=== PATIENT | male | born 1950 | race Caucasian/White ===

== ENCOUNTER → 2019-06-03 13:48 | Outpatient (CLI) | payer MEDICARE, OTHER, SELFPAY ==
[2014-06-27 05:48] VITALS: BMI 21.4
--- NOTE | 2019-06-03 13:54 | ART_ITS ---
Reason For Study: PAD, claudication Procedure A bilateral lower extremity continuous wave Doppler with analog waveform analysis,segmental pressures,and ankle brachial indexes without exercise. Did not exercise pt due to severity of disease. Pt is also using a cane and states he has been falling. Prelim called to Kathleen at Dr. Matute's office. Pt released. Left Segmental Pressures Left brachial= 98mmHg. Left thigh = 62mmHg. Left calf = 46mmHg. Left posterior tibial artery = 32mmHg. Left dorsalis pedis artery = 36mmHg. Left digit = 0 mmHg. Right Segmental Pressures Right brachial= 86mmHg. Right thigh = 77mmHg. Right calf = 78mmHg. Right posterior tibial artery = 71mmHg. Right dorsalis pedis artery = 70mmHg. Right digit = 23 mmHg. The right dorsalis pedis waveforms are biphasic. The right posterior tibial artery waveforms are biphasic. Indices The right ankle brachial index by the dorsalis pedis is .71. The right ankle brachial index by the posterior tibial artery is .72. The right digital-brachial index is .23. The left ankle brachial index by the dorsalis pedis is .36. The left ankle brachial index by the posterior tibial artery is .33. The left digital-brachial index is 0. Interpretation Summary Moderately severe right lower extremity arterial occlusive disease Abnormal right digital brachial indices consistent with severe/small vessel disease Severe left lower extremity arterial occlusive disease. Left digital brachial indices not obtainable secondary to flattened waveforms consistent with severe/multisegmental disease/small vessel disease Ordering Physician: Goldy Matute Performed By: ROSELINE LOONEY Hina
== END ==
PROVIDERS: Family Provider Family Medicine; PCP Student in an Organized Health Care Education/Training Program; Referring Provider Surgery; Visit Provider Surgery
DX: I73.9 Peripheral vascular disease, unspecified (principal)
CPT/HCPCS: 93924

== ENCOUNTER 2019-07-14 08:53 | Day surgery (SDC) | payer MEDICARE, OTHER, SELFPAY ==
[2019-06-09 13:16] VITALS: BMI 18.8
--- NOTE | 2019-07-12 03:20 | HP_ITS ---
Intake Vital Signs 07/12/19 Height 5 ft 3 in 07/12/19 Weight: 106 lb 07/12/19 BMI 18.8 07/12/19 BP 129/73 H 07/12/19 Blood Pressure Location Rt brachial 07/12/19 Position Sitting 07/12/19 Respiration 16 07/12/19 Pulse 68 07/12/19 Pulse Source Monitor 07/12/19 Temp 98.6 F 07/12/19 Temp Source Oral 07/12/19 Pulse Oximetry (%) 93 07/12/19 Oxygen Delivery Method room air Intake Visit Reasons: TO UPDATE H&P- L APLL RC Chief Complaint: PAD Belting Inspector Required: No Is patient in pain?: Yes (Left leg) Pain scale (1-10): 5 Allergies ciprofloxacin HCl [From Cipro] Allergy (Verified 06/27/14 05:47) Unknown Medications Aspirin E.C. [Ecotrin] 81 mg PO DAILY@0800 06/20/14 [History Confirmed 07/12/19] Diltiazem CD [Cardizem CD] 180 mg PO DAILY 06/20/14 [History Confirmed 07/12/19] Valsartan/Hydrochlorothiazide [Diovan Hct 320-12.5 MG Tab] 320 mg PO DAILY 06/20/14 [History Confirmed 07/12/19] cilostazol 50 mg tablet mg PO 06/09/19 [History Confirmed 07/12/19] PFSH Medical History Peripheral arterial occlusive disease (Acute) Back pain (Acute) PAOD (peripheral arterial occlusive disease) (Acute) HTN (hypertension) (Chronic) Surgical History Status post peripheral artery angioplasty (Acute) Family History Father Hypertension Cancer lung Social History (Updated 07/12/19 @ 15:20 by Jamila Hopkins PA-C) Smoking Status: Heavy Smoker (>10/day) HPI HPI HPI: RYAN ESCOBAR, is a 68 M who presents to the office today for HPI HPI Surgical H&P: Yes HPI: RYAN ESCOBAR, is a 68 M who presents to the office today for an update history and physical for an upcoming procedure. Patient denies recent hospitalizations or illnesses since his last office visit. He denies any changes in his medications. Patient has had multiple APLL procedures without any complications or side effects. Patient' previous history per Dr. Matute: RYAN ESCOBAR, is a 68 M who presents to the office today for surgical consultation regarding a progressive at least 2-month history of left calf and foot pain with attempts to walk. His past history is complicated 2013 he had a right external iliac stent placed. 2014 he had 7 x 4 conquest angioplasty of in-stent stenosis of the right external iliac. He had placement of a right common iliac 8 x 39 mm Deepa stent. A left common iliac/external iliac placement of a 9 x 29 mm Deepa stent. A left external iliac 8 x 60 mm protege stent. Subsequently June 27, 2014 had bilateral external iliac/common femoral/superficial femoral endarterectomies with a small saphenous vein patch on the right and a direct repair on the left. He presents now with significant complaints regarding his left leg. No particular complaints regarding the right. This patient among other medications was supposed to be on aspirin 81 mg daily. At some point in the past he ceased taking that. He made comment that he was having trouble with nosebleeds. Recently he was placed on cilostazol by his primary care physician. His body weight is 106 pounds with a BMI of 18.8. He looks far older than stated age. He continues to smoke cigarettes at the rate of a pack per day and has done so for greater than 50 years. [facility] [address] [place] [id number] Lower Ext Art Exam w/ Exercise 06/03/19 1357 MR#: [id number] Name:RYAN ESCOBARRep #:[id number] : 1950 68From:Goldy Matute MD Attending Dr: ISSA Suntatus: REG CLI Ordering Dr: Goldy Matute MDDate: 06/03/19 [facility]: Reason For Study: PAD, claudication Procedure A bilateral lower extremity continuous wave Doppler with analog waveform analysis,segmental pressures,and ankle brachial indexes without exercise. Did not exercise pt due to severity of disease. Pt is also using a cane and states he has been falling. Prelim called to Kathleen at Dr. Matute's office. Pt released. Left Segmental Pressures Left brachial= 98mmHg. Left thigh = 62mmHg. Left calf = 46mmHg. Left posterior tibial artery = 32mmHg. Left dorsalis pedis artery = 36mmHg. Left digit = 0 mmHg. Right Segmental Pressures Right brachial= 86mmHg. Right thigh = 77mmHg. Right calf = 78mmHg. Right posterior tibial artery = 71mmHg. Right dorsalis pedis artery = 70mmHg. Right digit = 23 mmHg. The right dorsalis pedis waveforms are biphasic. The right posterior tibial artery waveforms are biphasic. Indices The right ankle brachial index by the dorsalis pedis is .71. The right ankle brachial index by the posterior tibial artery is .72. The right digital-brachial index is .23. The left ankle brachial index by the dorsalis pedis is .36. The left ankle brachial index by the posterior tibial artery is .33. The left digital-brachial index is 0. Interpretation Summary Moderately severe right lower extremity arterial occlusive disease Abnormal right digital brachial indices consistent with severe/small vessel disease Severe left lower extremity arterial occlusive disease. Left digital brachial indices not obtainable secondary to flattened waveforms consistent with severe/multisegmental disease/small vessel disease Ordering Physician: Goldy Matute Performed By: ROSELINE LOONEY RVT 06/03/19 1651 Date Goldy Matute MD CC: Salvador Foy DO; Henrik Reddy DO; Goldy Matute MD ~ Date Dictated:06/03/19 1357 Date Transcribed: 06/03/19 1651 ROS General General: No weight change, appetite, fatigue, colon cancer, breast cancer or weakness HEENT HEENT: No difficulty swallowing, eye injury, eye surgery, swollen glands or hoarseness Endo Endocrine: No thyroid disease, diabetes mellitus, thyroid cancer, Hair loss, heat intolerance or cold intolerance Musc Musculoskeletal: Yes back problems; no arthritis, rheumatoid arthritis, gout or joint pain Cardio Cardiovascular: Yes high blood pressure; no murmur, pacemaker, heart disease, atrial fibrillation, heart attack, heart stent, palpitations, shortness of breat with exertion or chest pain Psych Psychiatric: No depression, anxiety or hearing voices Resp Respiratory: No shortness of breath, No sleep apnea, No cough, No COPD, No asthma, No emphysema, No wheezing Gastro Gastrointestinal: No abdominal pain, No nausea or vomiting, No diarrhea, No constipation, No blood in stool, No acid reflux, No hemorrhoids, No ulcers, No gallbladder problem, No black,tarry stools Saroj Hematologic: Yes blood thinners, No blood disorders, No bleeding, No anemia, No blood clots Neuro Neurologic: No weakness Exam Const General: cooperative, healthy appearing, comfortable, no acute distress Other: Heavy tobacco odor HENMT Head: normal to inspection Eyes General: appearance normal, both eyes and all related structures Neck Neck: normal visual inspection Neck mass: No Resp Effort & Inspection: normal respiratory effort Auscultation: clear to auscultation bilaterally Cardio Rate: regular rate Rhythm: regular rhythm Heart Sounds: no murmurs GI Inspection: normal to inspection Palpation: soft Auscultation: normal bowel sounds Skin General: no rashes or lesions noted Neuro General: no focal motor deficits, CN's II-XI intact bilaterally Extrem Other: Pulses: Bilateral brachial 1+, Bilateral carotid, right femoral 2+, left femoral 0 but left external iliac 2+, right popliteal 1+, left popliteal 0, Bilateral DP and PT 0. Psych Appearance: grossly normal Affect: normal affect Assessment & Plan Problems 1. Peripheral arterial occlusive disease I77.[address] Matute will plan to perform an abdominal pelvic left lower extremity arteriogram with access through the right femoral region. Procedure details, risks and benefits have been explained. Patient and his have had the opportunity to ask and have questions answered. Patient verbally understands and agrees with the plan. Coding Level of Care Code No Charge Diagnoses Peripheral arterial occlusive disease I77.9 Comment Update H&P 07/12/19 1520 <Electronically signed by Jamila levy PA-C> Date _ Jamila Hopkins PA-C
[2019-07-12 13:09] VITALS: BMI 18.8
[2019-07-12 15:07] LABS: Hematocrit 36.9 % (40-54); Hemoglobin 12.5 g/dL (13.0-16.5); Mean Corp Hgb Conc 33.9 g/dL (32-36); Mean Corpuscular Hgb 31.1 pg (27.0-32.0); Mean Corpuscular Volume 91.8 fL (80-94); Mean Platelet Vol. 10.1 fl (6.2-12.0); Platelet Count 317 K/mm3 (150-450); RBC Distribution Width CV 13.3 % (11.6-14.6); RBC Distribution Width SD 45.9 fl (35.1-43.9); Red Blood Count 4.02 M/mm3 (4.6-6.2); White Blood Count 8.4 K/mm3 (4.4-11.0)
[2019-07-12 15:21] LABS: Anion Gap 8 (5-15); BUN 27 mg/dL (7-18); BUN/Creat Ratio 20.5 RATIO (10-20); Chloride 100 mmol/L (98-107); Creatinine, Serum 1.32 mg/dL (0.70-1.30); EST Glomerular Filtration Rate 57 mL/min (>60); Est Glom Filt Rate - Afr Amer 69 mL/min (>60); Glucose 107 mg/dL (74-106); Potassium 4.2 mmol/L (3.5-5.1); Sodium Level 133 mmol/L (136-145)
[2019-07-13 08:29] VITALS: BMI 18.8
--- NOTE | 2019-07-14 09:16 | EKG12_ITS ---
Test Reason : PRE OP Blood Pressure : / mmHG Vent. Rate : 081 BPM Atrial Rate : 081 BPM P-R Int : 202 ms QRS Dur : 080 ms QT Int : 332 ms P-R-T Axes : 085 071 075 degrees QTc Int : 385 ms Normal sinus rhythm with sinus arrhythmia Septal infarct (cited on or before 10-JAN-2006) Abnormal ECG When compared with ECG of 20-JUN-2014 15:14, No significant change was found Confirmed by ТАТЬЯНА EDDY, JASON ([id number]), film and video editor ROSALIND MORTON ([id number]) on 07/19/2019 10:29:58 AM Referred By: Goldy Matute Confirmed By:ANNETTE VAZ MD
--- NOTE | 2019-07-14 10:07 | PCM.HP.BLA ---
Problem List (1) Peripheral arterial occlusive disease Status: Acute History and Physical Date of Admission: 07/14/19 Intake Visit Reasons: TO UPDATE H&P- L APLL RC Chief Complaint: PAD Medical Clerical Assistant Required: No Is patient in pain?: Yes (Left leg) Pain scale (1-10): 5 Allergies ciprofloxacin HCl [From Cipro] Allergy (Verified 06/27/14 05:47) Unknown Medications Aspirin E.C. [Ecotrin] 81 mg PO DAILY@0800 06/20/14 [History Confirmed 07/12/19] Diltiazem CD [Cardizem CD] 180 mg PO DAILY 06/20/14 [History Confirmed 07/12/19] Valsartan/Hydrochlorothiazide [Diovan Hct 320-12.5 MG Tab] 320 mg PO DAILY 06/20/14 [History Confirmed 07/12/19] cilostazol 50 mg tablet mg PO 06/09/19 [History Confirmed 07/12/19] PFSH Medical History Peripheral arterial occlusive disease (Acute) Back pain (Acute) PAOD (peripheral arterial occlusive disease) (Acute) HTN (hypertension) (Chronic) Surgical History Status post peripheral artery angioplasty (Acute) Family History Father Hypertension Cancer lung Social History (Updated 07/12/19 @ 15:20 by Jamila Hopkins PA-C) Smoking Status: Heavy Smoker (>10/day) HPI HPI HPI: RYAN ESCOBAR, is a 68 M who presents to the office today for HPI HPI Surgical H&P: Yes HPI: RYAN ESCOBAR, is a 68 M who presents to the office today for an update history and physical for an upcoming procedure. Patient denies recent hospitalizations or illnesses since his last office visit. He denies any changes in his medications. Patient has had multiple APLL procedures without any complications or side effects. Patient' previous history per Dr. Matute: RYAN ESCOBAR, is a 68 M who presents to the office today for surgical consultation regarding a progressive at least 2-month history of left calf and foot pain with attempts to walk. His past history is complicated 2013 he had a right external iliac stent placed. 2014 he had 7 x 4 conquest angioplasty of in-stent stenosis of the right external iliac. He had placement of a right common iliac 8 x 39 mm Deepa stent. A left common iliac/external iliac placement of a 9 x 29 mm Deepa stent. A left external iliac 8 x 60 mm protege stent. Subsequently June 27, 2014 had bilateral external iliac/common femoral/superficial femoral endarterectomies with a small saphenous vein patch on the right and a direct repair on the left. He presents now with significant complaints regarding his left leg. No particular complaints regarding the right. This patient among other medications was supposed to be on aspirin 81 mg daily. At some point in the past he ceased taking that. He made comment that he was having trouble with nosebleeds. Recently he was placed on cilostazol by his primary care physician. His body weight is 106 pounds with a BMI of 18.8. He looks far older than stated age. He continues to smoke cigarettes at the rate of a pack per day and has done so for greater than 50 years. [facility] [address] [place] [address]. [place] [address] Lower Ext Art Exam w/ Exercise 06/03/19 1357 MR#: [id number] Name:RYAN ESCOBARRep #:[id number] : 1950 68From:Goldy Matute MD Attending Dr: ISSA Suntatus: REG CLI Ordering Dr: Goldy Matute MDDate: 06/03/19 [facility]: Reason For Study: PAD, claudication Procedure A bilateral lower extremity continuous wave Doppler with analog waveform analysis,segmental pressures,and ankle brachial indexes without exercise. Did not exercise pt due to severity of disease. Pt is also using a cane and states he has been falling. Prelim called to Kathleen at Dr. Matute's office. Pt released. Left Segmental Pressures Left brachial= 98mmHg. Left thigh = 62mmHg. Left calf = 46mmHg. Left posterior tibial artery = 32mmHg. Left dorsalis pedis artery = 36mmHg. Left digit = 0 mmHg. Right Segmental Pressures Right brachial= 86mmHg. Right thigh = 77mmHg. Right calf = 78mmHg. Right posterior tibial artery = 71mmHg. Right dorsalis pedis artery = 70mmHg. Right digit = 23 mmHg. The right dorsalis pedis waveforms are biphasic. The right posterior tibial artery waveforms are biphasic. Indices The right ankle brachial index by the dorsalis pedis is .71. The right ankle brachial index by the posterior tibial artery is .72. The right digital-brachial index is .23. The left ankle brachial index by the dorsalis pedis is .36. The left ankle brachial index by the posterior tibial artery is .33. The left digital-brachial index is 0. Interpretation Summary Moderately severe right lower extremity arterial occlusive disease Abnormal right digital brachial indices consistent with severe/small vessel disease Severe left lower extremity arterial occlusive disease. Left digital brachial indices not obtainable secondary to flattened waveforms consistent with severe/multisegmental disease/small vessel disease Ordering Physician: Goldy Matute Performed By: ROSELINE LOONEY [facility] 06/03/191650 Date Goldy Matute MD CC: Salvador Foy DO; Henrik Reddy DO; Goldy Matute MD ~ Date Dictated:06/03/19 1357 Date Transcribed: 06/03/19 165 ROS General General: No weight change, appetite, fatigue, colon cancer, breast cancer or weakness HEENT HEENT: No difficulty swallowing, eye injury, eye surgery, swollen glands or hoarseness Endo Endocrine: No thyroid disease, diabetes mellitus, thyroid cancer, Hair loss, heat intolerance or cold intolerance Musc Musculoskeletal: Yes back problems; no arthritis, rheumatoid arthritis, gout or joint pain Cardio Cardiovascular: Yes high blood pressure; no murmur, pacemaker, heart disease, atrial fibrillation, heart attack, heart stent, palpitations, shortness of breat with exertion or chest pain Psych Psychiatric: No depression, anxiety or hearing voices Resp Respiratory: No shortness of breath, No sleep apnea, No cough, No COPD, No asthma, No emphysema, No wheezing Gastro Gastrointestinal: No abdominal pain, No nausea or vomiting, No diarrhea, No constipation, No blood in stool, No acid reflux, No hemorrhoids, No ulcers, No gallbladder problem, No black,tarry stools Saroj Hematologic: Yes blood thinners, No blood disorders, No bleeding, No anemia, No blood clots Neuro Neurologic: No weakness Exam Const General: cooperative, healthy appearing, comfortable, no acute distress Other: Heavy tobacco odor HENMT Head: normal to inspection Eyes General: appearance normal, both eyes and all related structures Neck Neck: normal visual inspection Neck mass: No Resp Effort & Inspection: normal respiratory effort Auscultation: clear to auscultation bilaterally Cardio Rate: regular rate Rhythm: regular rhythm Heart Sounds: no murmurs GI Inspection: normal to inspection Palpation: soft Auscultation: normal bowel sounds Skin General: no rashes or lesions noted Neuro General: no focal motor deficits, CN's II-XI intact bilaterally Extrem Other: Pulses: Bilateral brachial 1+, Bilateral carotid, right femoral 2+, left femoral 0 but left external iliac 2+, right popliteal 1+, left popliteal 0, Bilateral DP and PT 0. Psych Appearance: grossly normal Affect: normal affect Assessment & Plan Problems 1. Peripheral arterial occlusive disease I77.[address] Matute will plan to perform an abdominal pelvic left lower extremity arteriogram with access through the right femoral region. Procedure details, risks and benefits have been explained. Patient and his have had the opportunity to ask and have questions answered. Patient verbally understands and agrees with the plan. Coding Level of Care Code No Charge Diagnoses Peripheral arterial occlusive disease I77.9 Comment Update H&P 07/12/19 1520 <Electronically signed by Jamila Hopkins PA-C> Date Jamila Hopkins PA-C I have re-examined the patient. There are no clinical changes since date of exam.
--- NOTE | 2019-07-14 13:01 | PCM.OPRPT ---
Problem List (1) Peripheral arterial occlusive disease Status: Acute Report of Operation Date of Procedure: 07/14/19 Pre-Operative Diagnosis: Left lower extremity peripheral arterial occlusive disease with severe claudication. Post-Operative Diagnosis: Occlusion left common femoral artery and proximal profundofemoral artery and proximal and mid superficial femoral artery. 50% stenosis left distal external iliac artery. Moderate stenosis right proximal external iliac. 70% stenosis right distal external iliac at common femoral endarterectomy/patch angioplasty Surgery/Procedure Performed:: Abdominal pelvic left lower extremity arteriogram with attempted left common femoral artery 4 x 60 mm ever cross angioplasty Description of Surgical Findings:: Timeout and informed consent was obtained. 68-year-old gentleman was taken to the special procedures lab placed upon the table. Bilateral groins were sterilely prepped and draped. 50 mcg of fentanyl and 1 mg of Versed were given since intravenous sedation. Ultrasound was performed of the right groin. The small saphenous vein patch angioplasty was identified. Rather than directly accessing that I elected to go into the very proximal right superficial femoral artery just distal to the patch angioplasty. Under ultrasound guidance was able to inject 2% lidocaine. Then using ultrasound a micropuncture needle inserted into the right superficial femoral artery just distal to the patch. Was able to advance micropuncture wire then a stiff micropuncture sheath then a stiff 035 angled Glidewire and then a 5 [place]arian Terumo sheath. Was able to get a universal flush catheter into the abdominal aorta and using Visipaque contrast got an AP aortogram. That I had to switch out to a 5 Gib[place]tarian IM catheter gained access to the left common iliac was able to get that catheter to image the left coronary showing occlusion of the endarterectomized left common femoral artery. I was able to use a 035 quick cross catheter and gain access to that occlusion into the profundofemoral. I attempted to perform a 4 x 60 mm ever cross angioplasty but that balloon ruptured within the left common femoral artery. Upon further inspection I felt that I was not likely going to make any significant revascularization of the left profundofemoral artery from this approach. I completed my images of the left lower extremity. Completed my images of the right groin area. At that point I ceased the exam. Total of 50 cc of contrast was used It is of note that once I had the 5 [place] Terumo sheath in place I did give the patient 5000 units of heparin based upon weight and then based upon ACT measurements he received another thousand units. Sheath was withdrawn at the completion and direct pressure held Images demonstrate severely calcified and diffusely mildly narrowed abdominal aorta. There is evidence of bilateral common iliac artery stents in place with diffuse disease. There is a right external iliac stent. Just proximal that stent there is moderate stenosis. Distal that stent is exactly where the small saphenous vein endarterectomized patch angioplasty was performed of the right common femoral artery and there is 70% stenosis at that location. There is 50% stenosis of the left distal external iliac artery. Occlusion of the left common femoral artery. I was able to demonstrate filling of the left profundofemoral artery via the quick cross catheter. There is extensive collateralization of the left groin. There is refill of the distal left superficial femoral artery at Leno's canal. There is three-vessel runoff to the left lower extremity albeit with diminutive vessels. Goldy Matute M.D., F.A.C.S. Type of Anesthesia:: IV Sedation
[2019-07-14 13:25] LABS: ACT Activated Clotting Time 131 sec (74-137)
[2019-07-14 13:25] LABS: ACT Activated Clotting Time 219 sec (74-137)
[2019-07-14 13:25] LABS: ACT Activated Clotting Time 197 sec (74-137)
[2019-07-14 14:00] LABS: ACT Activated Clotting Time 213 sec (74-137)
[2019-07-14 16:04] VITALS: BP 90/56; PULSE 95; RESP 14; TEMP 36.4; O2SAT 91
[2019-07-14 16:25] VITALS: PULSE 90
[2019-07-14 17:10] VITALS: BP 125/65; PULSE 90; RESP 15; TEMP 36.6; O2SAT 93
[2019-07-14 18:15] VITALS: BP 110/65; PULSE 87; RESP 18; TEMP 37.1; O2SAT 91
[2019-07-14 18:52] VITALS: BP 153/67; PULSE 91; RESP 17; TEMP 37.1; O2SAT 93
== END 2019-07-14 18:58 | disposition home or self-care (01) ==
LOC: CLSP 09:00 → PCU 15:57
PROVIDERS: PCP Student in an Organized Health Care Education/Training Program; Referring Provider Surgery; Visit Provider Surgery
DX: I77.9 Disorder of arteries and arterioles, unspecified (principal); I70.8 Atherosclerosis of other arteries; T82.858A Stenosis of other vascular prosthetic devices, implants and grafts, initial encounter; F17.210 Nicotine dependence, cigarettes, uncomplicated; Z88.1 Allergy status to other antibiotic agents; Z79.82 Long term (current) use of aspirin
CPT/HCPCS: 36200; 36245; 36246; 36415; 37224; 75625; 75716; 76937; 80048; 85027; 85347; 93005; 99152; 99153; J7030; J7040; Q9967; C1725; C1769; C1887

== ENCOUNTER 2020-01-18 18:35 | Emergency (ER) | payer MEDICARE, OTHER, SELFPAY ==
[2019-07-13 08:29] VITALS: BMI 18.8
[2020-01-18 18:36] VITALS: BP 79/56; PULSE 64; RESP 18; TEMP 35.9; O2SAT 95; BMI 19.1
[2020-01-18 18:44] VITALS: BP 92/54; PULSE 99; RESP 19; O2SAT 99
--- NOTE | 2020-01-18 19:01 | EKG12_ITS ---
Test Reason : DYSRHYTHMIA Blood Pressure : / mmHG Vent. Rate : 057 BPM Atrial Rate : 057 BPM P-R Int : 230 ms QRS Dur : 082 ms QT Int : 430 ms P-R-T Axes : 053 056 070 degrees QTc Int : 418 ms Sinus bradycardia with 1st degree A-V block Septal infarct , age undetermined Abnormal ECG Confirmed by TORRI EDDY, GOSIA ([id number]), photograph editor SYLVIA CARNEY ([id number]) on 01/20/2020 10:56:30 AM Referred By: Confirmed By:GOSIA WILD MD
--- NOTE | 2020-01-18 19:07 | RAD_ITS ---
STUDY: X-RAY CHEST REASON FOR EXAM: Male, 69 years old. SYNCOPE TECHNIQUE: Frontal view COMPARISON: None. FINDINGS: The lungs are expanded. Possible left upper lobe infiltrate. Normal size heart. Normal mediastinum and clara. Normal visualized pulmonary arteries. Calcified aortic arch and descending thoracic aorta. Degenerative vertebral changes and scoliosis of the thoracic spine. Normal visualized ribs, clavicles, and shoulders. There is no demonstrated abnormality of the visualized soft tissue structures of the upper abdomen. RAD/Chest 1 View (Portable) IMPRESSION: Left upper lobe infiltrate is suspected. Electronically Signed: Denis John DO at 19:40 EDT Tel [phone], Service support ,
[2020-01-18] MEDS: 0.9% Normal Saline 1,000 ML 1000 ML IV (19:13)
[2020-01-18 19:26] LABS: Absolute Lymphocyte Count 2.67 X10^3/uL (0.83-4.51); Absolute Neutrophil Count 7.1 X10^3/uL (2.0-7.7); Basophil# 0.07 X10^3/uL; Basophil% 0.6 % (0-1); Eosinophil# 0.24 X10^3/uL; Eosinophils% 2.2 % (0-5); Hematocrit 38.3 % (40-54); Hemoglobin 12.9 g/dL (13.0-16.5); Lymphocyte # 2.67 X10^3/ul (4.0); Lymphocyte % 24.5 % (19-41); Mean Corp Hgb Conc 33.7 g/dL (32-36); Mean Corpuscular Hgb 31.6 pg (27.0-32.0); Mean Corpuscular Volume 93.9 fL (80-94); Mean Platelet Vol. 10.6 fl (6.2-12.0); Monocyte# 0.77 X10^3/uL; Monocyte% 7.1 % (0-10); NRBC Flagged by Analyzer 0 % (0-5); Neutrophil # 7.12 X10^3/uL (2.7-7.7); Neutrophil % 65.3 % (47-70); Platelet Count 273 K/mm3 (150-450); RBC Distribution Width CV 13.5 % (11.6-14.6); RBC Distribution Width SD 46.3 fl (35.1-43.9); Red Blood Count 4.08 M/mm3 (4.6-6.2); White Blood Count 10.9 K/mm3 (4.4-11.0)
[2020-01-18 19:40] VITALS: BP 112/52; BP 125/60; BP 96/52; PULSE 60; PULSE 63; PULSE 70
[2020-01-18 21:04] VITALS: BP 116/61; PULSE 71; RESP 19; O2SAT 94
[2020-01-18 21:11] LABS: Anion Gap 12 (5-15); BUN 32 mg/dL (7-18); BUN/Creat Ratio 19.8 RATIO (10-20); Calcium,Total 8.8 mg/dL (8.5-10.1); Chloride 102 mmol/L (98-107); Creatinine, Serum 1.62 mg/dL (0.70-1.30); EST Glomerular Filtration Rate 45 mL/min (>60); Est Glom Filt Rate - Afr Amer 54 mL/min (>60); Estimated Creatinine Clearance 30.25 ml/min; Glucose 80 mg/dL (74-106); Potassium 2.9 mmol/L (3.5-5.1); Sodium Level 134 mmol/L (136-145)
--- NOTE | 2020-01-18 22:00 | ED.DEP ---
ED Disposition - Plan for ED Patient: Instructions: ED Fainting Uncertain Cause Prescriptions: Doxycycline 100 mg PO BID #20 capsule Referrals: Henrik Reddy DO [Primary Care Provider] -
--- NOTE | 2020-01-18 22:17 | ED.DCSUM_ITS ---
- ER Visit Summary Date of Service: 01/18/20 Chief Complaint: Syncope History of Present Illness: The patient is a 69 M presenting via EMS after syncopal episode at a restaurant. states he was seated he started to feel lightheaded put his head down and then became unresponsive. EMS was called. On their arrival he was diaphoretic with labored respirations. states she is unsure if he was completely passed out. He had no fall. His blood pressure was low. His BGT was 88. He denies chest pain or shortness of breath. He has a chronic cough. He has nausea with no vomiting. He was given IV fluids per EMS. Physical Examination: Vitals are stable. Blood pressure 97/54. Patient is afebrile. Alert no acute distress. HEENT exam is unremarkable. Neck is supple. Lungs are clear and equal bilaterally. Heart is regular rate and rhythm. Abdomen is soft nontender nondistended. Extremities are unremarkable. Skin is warm and dry. No focal neurologic deficit. Remainder of exam is unremarkable. Emergency Department Course and Treatment: EKG is sinus rate of 57. Chest x-ray shows left upper lobe infiltrate is suspected. CBC shows hemoglobin 12.9. Chemistries show sodium 134, potassium 2.9, creatinine 1.62. Troponin is negative. Orthostatics negative. Patient was given doxycycline and potassium p.o. Repeat blood pressure 116/81. Due to his syncopal episode, recommend admission for observation. Patient refuses admission. He understands the risks of dysrhythmia, MO, and . He chooses to sign out AGAINST MEDICAL ADVICE. He was given prescription for doxycycline. Advised to follow-up with his primary care physician. Advised return to ED for worsening complaints. Disposition: Left AGAINST MEDICAL ADVICE Impression: Syncope, pneumonia, hypokalemia This note was generated with Share[employer] dictation software. It may contain incorrect words, spelling, and punctuation that were not noted in review of the chart prior to signing ED Disposition - Plan for ED Patient: Instructions: ED Fainting Uncertain Cause Prescriptions: Doxycycline 100 mg PO BID #20 cap Prescription Printed Referrals: Henrik Reddy DO [Primary Care Provider] -
[2020-01-18 22:21] VITALS: BP 140/64; PULSE 67; RESP 19; O2SAT 92
[2020-01-18] MEDS: Doxycycline 100 MG CAPSULE PO (22:25)
== END 2020-01-18 22:33 | disposition left against medical advice (07) ==
LOC: ED 19:08
PROVIDERS: Emergency Provider Emergency Medicine; PCP Student in an Organized Health Care Education/Training Program
DX: R55 Syncope and collapse (principal); J18.9 Pneumonia, unspecified organism; E87.6 Hypokalemia
CPT/HCPCS: 71045; 80048; 84484; 85025; 93005; 99285

== ENCOUNTER → 2022-05-02 | Outpatient (CLI) | payer MEDICARE, OTHER, SELFPAY ==
[2022-05-02 11:43] LABS: Anion Gap 2 (5-15); BUN 25 mg/dL (7-18); BUN/Creat Ratio 21.7 RATIO (10-20); Calcium,Total 9.3 mg/dL (8.5-10.1); Chloride 106 mmol/L (98-107); Creatinine, Serum 1.15 mg/dL (0.70-1.30); EST Glomerular Filtration Rate 66 mL/min (>60); Est Glom Filt Rate - Afr Amer 80 mL/min (>60); Glucose 76 mg/dL (74-106); Potassium 4.1 mmol/L (3.5-5.1); Sodium Level 140 mmol/L (136-145)
== END | disposition home or self-care (01) ==
PROVIDERS: PCP Student in an Organized Health Care Education/Training Program; Visit Provider Physician Assistant
DX: I77.9 Disorder of arteries and arterioles, unspecified (principal)
CPT/HCPCS: 36415; 80048

== ENCOUNTER → 2022-05-09 | Outpatient (CLI) | payer MEDICARE, OTHER, SELFPAY ==
--- NOTE | 2022-05-09 08:37 | CT_ITS ---
STUDY: CTA OF THE ABDOMINAL AORTA AND BILATERAL LOWER EXTREMITIES REASON FOR EXAM: Male, 71 years old. PAOD s/p angioplasty. Six-week history of bilateral lower extremity cramps. Prior angioplasty. RADIATION DOSAGE (If Supplied By Facility): CTDIvol = ( 6.05 ) mGy, DLP = ( 882.54 ) mGycm TECHNIQUE: Axial CT angiography multi-detector data acquisition was obtained from the dome of the liver to the level of the ankles following intravenous administration of IV 100mL Isovue-370. Axial images and MIP images were reconstructed from the axial data set. Post-processing of the angiographic images was performed, with multiplanar reformation and 3D reconstruction. Individualized dose optimization techniques were used for this CT. TECHNICAL QUALITY: Good COMPARISON: None. Descriptors of Narrowing: None (0%) Mild (< 50%) Moderate (50-70%) Severe (70-90%) Subtotal/Total Occlusion (90-100%) Non-Evaluable (technically non-diagnostic FINDINGS: Emphysematous changes are seen at the lung bases. Coronary artery calcification. Prior bilateral inguinal hernia repair with mesh. Duodenal diverticulum. Marked degree of valuable convex scoliosis. Abdominal aorta: Atherosclerotic plaque formation of the abdominal aorta. Celiac and superior mesenteric arteries: Calcified plaques at the origin of the celiac artery as well as the superior mesenteric artery. Inferior mesenteric artery: Not visualized Right renal artery(arteries): Possible stent in the proximal right renal artery. Left renal artery(arteries): Stenotic calcific plaques at the origin of the left renal artery. Right common iliac artery: Diffuse atherosclerotic plaque formation in the proximal right common iliac artery. A stent is seen within it. There is patency. Right external iliac artery: Diffuse plaque formation. Patent stent. Right internal iliac artery: No demonstrated narrowing. Left common iliac artery: Stents are seen in the common iliac artery. The stent is occluded. Left external iliac artery: There is reconstitution of the distal portion of the branches of the external iliac artery distally. Left internal iliac artery: No demonstrated narrowing. RIGHT LOWER EXTREMITY Right common femoral artery: No demonstrated narrowing. Right profundus femoris: No demonstrated narrowing. Right superficial femoral: Occlusion at its origin. Right popliteal artery: No demonstrated narrowing. Right tibioperoneal trunk: No demonstrated narrowing. Right anterior tibial artery: No demonstrated narrowing. Right posterior tibial artery: No demonstrated narrowing. Right peroneal artery: No demonstrated narrowing. LEFT LOWER EXTREMITY Left common femoral artery: No demonstrated narrowing. Left profundus femoris: No demonstrated narrowing. Left superficial femoral: Occlusion at its origin. Left popliteal artery: No demonstrated narrowing. Left tibioperoneal trunk: No demonstrated narrowing. Left anterior tibial artery: No demonstrated narrowing. Left posterior tibial artery: No demonstrated narrowing. Left peroneal artery: No demonstrated narrowing. CT/CTA Abd w/Runoff W/WO Contrast IMPRESSION: Occlusion of the left common iliac artery stent with reconstitution of the distal portion of the left common femoral artery. Occlusion of the superficial femoral arteries bilaterally with reconstitution of the popliteal artery at its origin. Three-vessel runoff in both lower extremities. Electronically Signed: Prasad Felton MD at 13:01 EST ,
== END | disposition home or self-care (01) ==
LOC: CT 08:35
PROVIDERS: PCP Student in an Organized Health Care Education/Training Program; Referring Provider Physician Assistant; Visit Provider Physician Assistant
DX: I70.1 Atherosclerosis of renal artery (principal); K55.1 Chronic vascular disorders of intestine; Z95.820 Peripheral vascular angioplasty status with implants and grafts; M41.87 Other forms of scoliosis, lumbosacral region; K57.10 Diverticulosis of small intestine without perforation or abscess without bleeding; R91.8 Other nonspecific abnormal finding of lung field
CPT/HCPCS: 75635; Q9967

== ENCOUNTER → 2022-06-17 | Outpatient (CLI) | payer MEDICARE, OTHER, SELFPAY ==
--- NOTE | 2022-06-17 06:20 | ART_ITS ---
Reason For Study: Claudication Procedure A bilateral lower extremity continuous wave Doppler with analog waveform analysis,segmental pressures,and ankle brachial indexes without exercise. Preliminary findings reported to [facility]. Left Segmental Pressures Left brachial= 144mmHg. Left thigh = 57mmHg. Left calf = 54mmHg. Left posterior tibial artery = 36mmHg. Left dorsalis pedis artery = 40mmHg. Left digit = 40 mmHg. The left posterior tibial artery waveforms are monophasic. The left dorsalis pedis waveforms are monophasic. Right Segmental Pressures Right brachial= 136mmHg. Right thigh = 115mmHg. Right calf = 80mmHg. Right posterior tibial artery = 76mmHg. Right dorsalis pedis artery = 80mmHg. Right digit = 51 mmHg. The right posterior tibial artery waveforms are monophasic. The right dorsalis pedis waveforms are monophasic. Indices The right ankle brachial index by the posterior tibial artery is 0.53. The right ankle brachial index by the dorsalis pedis is 0.56. The right digital-brachial index is 0.35. Unable to exercise patient due to poor ambulation. The left ankle brachial index by the posterior tibial artery is 0.25. The left ankle brachial index by the dorsalis pedis is 0.28. The left digital-brachial index is 0.28. Unable to exercise patient due to poor ambulation. VL/Lower Ext Art Exam w/ Exercise Interpretation Summary Right NEVA 0.56, severe arterial insufficiency. Doppler/PVR waveforms and segmen melita pressures reveal knvuc-sozfu-yovuugpe femoral, distal SFA/popliteal disease. Left NEVA 0.28, severe arterial insufficiency. Doppler/PVR waveforms and segment al pressures reveal gwvjx-dzalz-utsaiezu femoral disease Ordering Physician: Lucy Fitch Referring Physician: Marian Bailey Performed By: Crispin Christensen, RVT
--- NOTE | 2022-06-17 19:11 | STRESSREP_ITS ---
Stress Test Report Pharmacologic myocardial perfusion stress test. 71-year-old man with a history of peripheral vascular disease for preoperative evaluation Resting EKG demonstrates sinus rhythm with a rate of 82 bpm. Resting blood pressure is 152/70 mmHg. 0.4 mg of regadenoson was infused per usual protocol followed by rapid intravenous saline flush injection. Continuous EKG monitoring was performed. The maximum heart rate was 120 bpm which was 81% of max impacted heart rate the maximum workload was 1 metabolic equivalent. At rest there were no ST or T wave changes noted to suggest ischemia and at peak infusion nonspecific ST changes were noted which did not meet the criteria for ischemia. No clinical angina is noted. The final blood pressure was 138/74 mmHg. Myocardial perfusion protocol. 11.5 mCi of technetium 99m sestamibi was injected at rest. 0.4 mg of regadenoson was infused per usual protocol. At peak infusion 32.6 mCi of techne tium 99m sestamibi was injected stress images were obtained stress and rest images were reconstructed and compared in the short axis vertical long and horizontal long axis. Gated images were also obtained. Perfusion SPECT analysis: Review of the stress images demonstrate normal uptake of tracer noted in all areas of the myocardium. The resting images similar demonstrated normal uptake of tracer noted in all areas of the myocardium. No areas of reversibility are noted to suggest ischemia and no previous infarct is noted. Gated SPECT analysis: The gated ejection fraction is 79%. Conclusion: Normal pharmacologic myocardial perfusion stress test. Preserved ejection fraction.
== END | disposition home or self-care (01) ==
PROVIDERS: PCP Student in an Organized Health Care Education/Training Program; Referring Provider Physician Assistant; Visit Provider Physician Assistant
DX: Z01.810 Encounter for preprocedural cardiovascular examination (principal); I73.9 Peripheral vascular disease, unspecified; Z98.62 Peripheral vascular angioplasty status
CPT/HCPCS: 78452; 93017; 93924; A9500; A4216; J2785

== ENCOUNTER → 2022-06-18 | Outpatient (CLI) | payer MEDICARE, OTHER, SELFPAY ==
[2022-06-18 11:39] LABS: Bacteria 0 SEEN /hpf (None Seen); Mucous, Urine 0 SEEN /hpf (<or=2+); Red Blood Cells-Urine 0 SEEN /hpf (0-5); Squamous Epithelial Cells - UA 0 SEEN /hpf (0-5); White Blood Cells 0 SEEN /hpf (0-5)
[2022-06-18 15:35] LABS: Absolute Lymphocyte Count 1.52 X10^3/uL (0.83-4.51); Absolute Neutrophil Count 7.1 X10^3/uL (2.0-7.7); Basophil# 0.07 X10^3/uL; Basophil% 0.7 % (0-1); Eosinophil# 0.25 X10^3/uL; Eosinophils% 2.6 % (0-5); Hemoglobin 13.5 g/dL (13.0-16.5); Lymphocyte # 1.52 X10^3/ul (0.83-4.51); Lymphocyte % 15.6 % (19-41); Mean Corp Hgb Conc 31.4 g/dL (32-36); Mean Corpuscular Hgb 29.5 pg (27.0-32.0); Mean Corpuscular Volume 94.1 fL (80-94); Monocyte# 0.83 X10^3/uL; Monocyte% 8.5 % (0-10); NRBC Flagged by Analyzer 0 % (0-5); Neutrophil # 7.06 X10^3/uL (2.7-7.7); Neutrophil % 72.3 % (47-70); Platelet Count 284 K/mm3 (150-450); RBC Distribution Width CV 13.4 % (11.6-14.6); RBC Distribution Width SD 46.2 fl (35.1-43.9); Red Blood Count 4.57 M/mm3 (4.6-6.2); White Blood Count 9.8 K/mm3 (4.4-11.0)
[2022-06-18 16:18] LABS: ALB/GLOB Ratio 0.8 RATIO (0.9-2.4); AST(SGOT) 13 U/L (15-37); Alanine Aminotransfer ALT/SGPT 16 U/L (16-61); Albumin, Serum 3.5 g/dL (3.2-5.0); Alkaline Phosphatase 92 U/L (45-117); Anion Gap 9 (5-15); BUN 20 mg/dL (7-18); BUN/Creat Ratio 17.9 RATIO (10-20); Calcium,Total 9.3 mg/dL (8.5-10.1); Chloride 102 mmol/L (98-107); Cholesterol 180 mg/dL (200); Creatinine, Serum 1.12 mg/dL (0.70-1.30); EST Glomerular Filtration Rate 68 mL/min (>60); Est Glom Filt Rate - Afr Amer 83 mL/min (>60); Globulin 4.4 g/dL (2.2-4.2); Glucose 97 mg/dL (74-106); High Density Lipoprotein 93 mg/dL; Potassium 3.9 mmol/L (3.5-5.1); Protein, Total 7.9 g/dL (6.4-8.2); Sodium Level 138 mmol/L (136-145); Triglycerides 70 mg/dL; Very Low Density Lipoprotein 14 mg/dL (5-40)
[2022-06-18 16:28] LABS: Color, Urine Yellow (Yellow); Glucose, Dipstick Normal (Normal); Ketone-Dipstick Negative (Negative); Leukocyte Esterase-Dipstick Negative /ul (Negative); Nitrite-Dipstick Negative (Negative); Occult Blood-Urine 10 /ul (Negative); Protein-Dipstick 15 mg/dl (Negative); Specific Gravity, Urine 1.015 (1.002-1.030); Urine Bilirubin Dipstick Negative (Negative); Urine Clarity Clear (Clear); Urine Urobilinogen Normal (Normal)
== END | disposition home or self-care (01) ==
LOC: MFPLAB 11:38
PROVIDERS: PCP Student in an Organized Health Care Education/Training Program; Visit Provider Family Medicine
DX: F17.200 Nicotine dependence, unspecified, uncomplicated (principal); I10 Essential (primary) hypertension
CPT/HCPCS: 36415; 80053; 80061; 81001; 84443; 85025

== ENCOUNTER 2022-07-02 06:26 | Day surgery (SDC) | payer MEDICARE, OTHER, SELFPAY ==
[2022-07-01 14:19] VITALS: BMI 17.6
--- NOTE | 2022-07-02 09:25 | OP.PCM_ITS ---
Report of Operation Date of Procedure: 07/02/22 Pre-Operative Diagnosis: atherosclerosis with ulceration LLE Post-Operative Diagnosis: same Surgery/Procedure Performed:: aortogram, left lower extremity runoff Surgeon: Enoc Grubbs Type of Anesthesia: Local and Sedation,Conscious Description of Procedure: HPI: Patient is a 71-year-old male with previous iliofemoral revascularizations that have subsequently failed on the left-hand side. He has had progressive ischemic changes now with a nonhealing wound he previously had CT angiography which was nondiagnostic due to contrast timing in the left lower extremity, was uncertain if there was any profunda femoris vessel patent and a surgically accessible location. The popliteal vessels also were very underfilled and it was unclear based on the CT scan if left lower extremity distal targets were available. He is taken now for angiography to determine candidacy for bypass surgery. Description of procedure: Upon obtaining informed consent and verification correct patient procedure and site patient was taken the Vessel Scrapper where he was positioned prepped and draped in usual sterile fashion. Timeout was then performed and conscious sedation administered with Versed and fentanyl. Skin over the right common femoral artery was anesthetized with 1% lidocaine and the vessel accessed under ultrasound guidance in retrograde fashion with m icropuncture needle and wire. This was then exchanged for micropuncture sheath through which injection femoral angiogram was performed revealing satisfactory placement no extravasation or dissection. Through the micropuncture sheath Bentson wire was advanced abdominal aorta and the puncture sheath exchanged out for a 5 Sudanese sheath. The 5 Sudanese sheath was catching resistance on the previously placed iliac stents which were adjacent to the inguinal ligament. 5 Sudanese sheath was then withdrawn the Bentson wire with no resistance Wire was then withdrawn aortogram pelvic angiogram and sequential imaging of the left lower extremity was performed after satisfactory imaging was obtained catheters and withdrawn and manual pressure held after which satisfactory stasis was noted. Radiographic interpretation: Abdominal aorta patent with moderate diffuse atherosclerosis. Right common iliac artery patent with mild diffuse atherosclerosis, no stenosis. Right external iliac artery stent with moderate to severe in-stent stenosis throughout. Right common femoral artery large caliber, prior patch angioplasty with no stenosis. Left common and external iliac arteries occluded with dense collaterals within the pelvis. No reconstitution of the common femoral artery or proximal superficial femoral artery. There is reconstitution of a tertiary branch of the profunda, which ultimately backfills into the more proximal profunda with what appears to be patent lumen nearly back to where the bifurcation would be located. There is reconstitution of the distal above-knee popliteal via large collateral, with no significant atherosclerosis or stenosis of the popliteal artery. There is three-vessel runoff, with mild diffuse atherosclerosis of each of the tibial vessels.
== END 2022-07-02 12:40 | disposition home or self-care (01) ==
PROVIDERS: PCP Family Medicine; Referring Provider Surgery Trauma Surgery; Visit Provider Surgery Trauma Surgery
DX: I70.222 Atherosclerosis of native arteries of extremities with rest pain, left leg (principal); I70.0 Atherosclerosis of aorta; I70.219 Atherosclerosis of native arteries of extremities with intermittent claudication, unspecified extremity; I10 Essential (primary) hypertension; F17.200 Nicotine dependence, unspecified, uncomplicated; Z98.62 Peripheral vascular angioplasty status; Z01.810 Encounter for preprocedural cardiovascular examination
CPT/HCPCS: 36200; 36245; 75625; 75710; 76937; 99152; 99153; C1769; J7040; Q9967

== ENCOUNTER → 2022-07-15 | Outpatient (CLI) | payer MEDICARE, OTHER, SELFPAY ==
--- NOTE | 2022-07-15 14:53 | CT_ITS ---
EXAM: CT CHEST, LUNG CANCER SCREENING WITHOUT INTRAVENOUS CONTRAST CLINICAL INDICATION: tobacco use TECHNIQUE: Helically acquired images were obtained of the chest without intravenous contrast using low dose (LDCT) lung cancer screening protocol. This CT exam was performed using one or more of the following dose reduction techniques: automated exposure control, adjustment of the mA and/or kV according to patient size, and/or use of iterative reconstruction technique. This report was created using [employer] report generation technology. COMPARISON: None. FINDINGS: LUNGS AND PLEURAL SPACES: There is pulmonary hyperinflation with extensive emphysematous change throughout both lungs. There is a pleural-based nodule right lower lobe that measures 5 x 5 x 7 mm. There is a soft tissue nodule in the left lung base that measures 7 x 6 x 8 mm. No pneumothorax. HEART: Unremarkable. Heart size is normal. No pericardial effusion. No significant coronary artery calcifications. MEDIASTINUM: Unremarkable. No mediastinal or hilar adenopathy. Esophagus is unremarkable. No hiatal hernia. THYROID: Unremarkable. No thyroid lesions. BONES/JOINTS: There is scoliotic deformity of spine. No suspicious lytic or blastic abnormality. VASCULATURE: Unremarkable. Thoracic aorta is non-dilated. LYMPH NODES: Unremarkable. No enlarged lymph nodes. CT/Low Dose CT Lung Screening IMPRESSION: Noncalcified nodules one within the left base which was seen on a previous CTA of the abdomen and pelvis dated 05/09/2022 is stable and a second pleural-based nodule right lower lobe which is also stable. There are severe underlying emphysematous changes with pulmonary hyperinflation. Lung-RADS score: 2 - Benign Appearance or Behavior. Recommend continued annual screening with low-dose CT (LDCT) in 12 months. Electronically Signed: Wolfgang Barnes MD at 19:27 [facility] ,
== END | disposition home or self-care (01) ==
LOC: CT 14:52
PROVIDERS: PCP Family Medicine; Referring Provider Family Medicine; Visit Provider Family Medicine
DX: F17.210 Nicotine dependence, cigarettes, uncomplicated (principal)
CPT/HCPCS: 71271

== ENCOUNTER 2022-07-29 05:49 | Inpatient (IN) | payer MEDICARE, OTHER, SELFPAY ==
--- NOTE | 2022-07-18 11:54 | EKG12_ITS ---
Test Reason : PRE-OP Blood Pressure : / mmHG Vent. Rate : 090 BPM Atrial Rate : 090 BPM P-R Int : 200 ms QRS Dur : 076 ms QT Int : 338 ms P-R-T Axes : 088 084 079 degrees QTc Int : 413 ms Normal sinus rhythm Septal infarct , age undetermined Abnormal ECG Confirmed by ТАТЬЯНА EDDY, JASON ([id number]), newspaper photo editor SYLVIA CARNEY ([id number]) on 07/22/2022 9:28:53 AM Referred By: Dom Chaidez Confirmed By:ANNETTE VAZ MD
[2022-07-18 12:41] LABS: Hematocrit 42.3 % (40-54); Hemoglobin 13.4 g/dL (13.0-16.5); Mean Corp Hgb Conc 31.7 g/dL (32-36); Mean Corpuscular Hgb 29.4 pg (27.0-32.0); Mean Corpuscular Volume 92.8 fL (80-94); Mean Platelet Vol. 10.4 fl (6.2-12.0); Platelet Count 266 K/mm3 (150-450); RBC Distribution Width CV 13.1 % (11.6-14.6); RBC Distribution Width SD 44.5 fl (35.1-43.9); Red Blood Count 4.56 M/mm3 (4.6-6.2); White Blood Count 10.9 K/mm3 (4.4-11.0)
[2022-07-18 13:15] LABS: Phosphorus 3.2 mg/dL (2.5-4.9)
[2022-07-18 13:19] LABS: PTHIN 70.3 pg/mL (18.4-80.1); Vitamin D,25 Hydroxy 21.7 ng/mL
[2022-07-18 13:25] LABS: Anion Gap 8 (5-15); BUN 29 mg/dL (7-18); BUN/Creat Ratio 18.2 RATIO (10-20); Calcium,Total 9.6 mg/dL (8.5-10.1); Chloride 102 mmol/L (98-107); Creatinine, Serum 1.59 mg/dL (0.70-1.30); EST Glomerular Filtration Rate 46 mL/min (>60); Est Glom Filt Rate - Afr Amer 55 mL/min (>60); Glucose 142 mg/dL (74-106); Potassium 4.1 mmol/L (3.5-5.1); Sodium Level 140 mmol/L (136-145)
[2022-07-18 13:56] LABS: Hemoglobin A1c 5.7 % (3.8-5.6)
[2022-07-29] VITALS (21 sets, daily range): BP systolic 57–142; BP diastolic 34–68; PULSE 59–104; RESP 12–21; TEMP 31.4–37; O2SAT 86–100; BMI 17.0
[2022-07-29] MEDS: Lactated Ringers 1,000 ML 15 ML IV (06:46)
[2022-07-29] MEDS: Ipratropium/Albuterol Sulfate 3 ML AMPUL.NEB INHALATION (06:50)
--- NOTE | 2022-07-29 07:33 | PCM.HP.STD ---
HPI - General General Date of Admission: 07/29/22 HPI Narrative RYAN ESCOBAR, is a 71 M who presents with severe bilateral lower extremity peripheral arterial occlusive disease. Currently with rest pain/wound LLE, prior femoral endarterectomies and iliac stents. Left iliac stents, left common femoral occluded. Right iliac stents with in-stent stenosis. Angiogram reveal some back filling of profunda from collaterals as a possible target for fem-fem; above knee popliteal also patent with decent runoff. [facility] Medical History (Updated 07/15/22 @ 13:36 by Christy Carbajal) Alcohol abuse Back pain COPD (chronic obstructive pulmonary disease) Edema Hard of hearing Head injury Heartburn High cholesterol History of stress test HTN (hypertension) Hypoglycemia Leg cramps Leg pain Neuropathy Osteoporosis PAOD (peripheral arterial occlusive disease) Passed out Peripheral arterial occlusive disease Shortness of breath Smoker Wears eyeglasses Home Medications diltiazem HCl 180 mg capsule,extended release 24 hr 180 mg PO DAILY BP 06/20/14 [History Last Taken 07/29/22] valsartan 320 mg-hydrochlorothiazide 12.5 mg tablet 320 mg PO DAILY BP 06/20/14 [History Last Taken 01/18/20] glucose 4 gram chewable tablet 4 g PO DAILY sugar 01/18/20 [History Last Taken 01/18/20] aspirin 81 mg tablet,delayed release (Adult Low Dose Aspirin) 81 mg PO DAILY SUPPLEMENT 05/02/22 [History Last Taken 07/28/22] cilostazol 50 mg tablet 50 mg PO DAILY BONE 07/15/22 [History Last Taken Unknown] rosuvastatin 10 mg tablet (Crestor) 10 mg PO QHS CHOLESTEROL 07/15/22 [History Last Taken Unknown] Allergy/AdvReac Type Severity Reaction Status Date / Time ciprofloxacin HCl Allergy Severe Nausea Verified 07/29/22 06:20 [From Cipro] Family History Father Hypertension Cancer lung Other Osteoporosis Surgical History (Updated 07/15/22 @ 13:36 by Christy Carbajal) Hx of colonoscopy Hx of left cataract extraction Hx of right cataract extraction Status post peripheral artery angioplasty Social History Smoking Status: Current every day smoker tobacco type: cigarettes ROS Constitutional Constitutional: Denies chills, fever(s), frequent falls, lethargy or weakness Eyes Eyes: Denies blind spots, change in vision or loss of vision ENT HEENT: Denies bleeding gums, hoarseness or sore throat Cardiovascular Cardiovascular: Denies abdominal pain, bluish discoloration of hand/feet, chest pain with activity, claudication, cold extremities, cyanosis, dyspnea on exertion, erythema on extremities, irregular heart rhythm, leg edema, leg ulcers, numbness in extremities or weakness in extremities Respiratory/Chest Respiratory/Chest: Denies cough, excessive phlegm production, shortness of breath at rest, shortness of breath with exertion or wheezing Gastrointestinal Gastrointestinal: Denies anorexia, change in stool character, constipation, diarrhea, melena or rectal bleeding Genitourinary Genitourinary: Denies dysuria or hematuria Musculoskeletal Musculoskeletal: Denies abnormal gait Integumentary Integumentary: Reports other Details: ; Denies erythema, non-healing lesions or wounds Neurologic Neurologic: Denies abnormal speech, focal weakness, headache(s), loss of vision, numbness, paresthesias or sensory deficit Hematologic/Lymphatic Hematologic/Lymphatic: Denies easy bleeding, easy bruising or lymphadenopathy Vital Signs Vital Signs Vital Signs: 07/29/22 06:21 07/29/22 06:21 07/29/22 06:50 Temperature 97.8 F Temperature Source Temporal Pulse Rate 96 95 Respiratory Rate 18 18 Respiratory Pattern Normal Normal Blood Pressure 142/68 H Blood Pressure Mean 92 Blood Pressure Source Monitor Blood Pressure Position Semi-Fowlers Blood Pressure Location Left Arm Pulse Ox 95 Oxygen Delivery Method Room Air Weight Weight: 99 lb 3.328 oz Body Mass Index (BMI) 17.0 Physical Exam Const alert, oriented x3, no apparent distress and healthy appearing General Appearance: cooperative; Negative for combative or lethargic Orientation / Consciousness: awake Exam Limitations: no limitations HEENT Head and Scalp: normocephalic and atraumatic Eyes EOMs intact bilaterally General Eye: normal appearance of both eyes Neck full ROM Resp normal respiratory effort and no use of accessory muscles Effort and Inspection: Negative for labored, stridor or audible wheezes Cardio regular rate and regular rhythm Back/Spine Cervical Spine: cervical ROM normal Extremity full ROM, normal capillary refill and no clubbing, cyanosis or edema Skin no rashes or lesions noted Neuro oriented x3, CN's II-XII intact bilaterally, no focal motor deficits and no sensory deficits noted Psych thought process normal, cooperative, affect normal, speech normal and activity/motor behavior normal Results Lab / Micro Data Result Diagrams: 07/18/22 12:13 07/18/22 12:13 Assessment & Plan Assessment/Plan (1) Atherosclerosis of [place] arteries of extremities with rest pain, left leg: PLAN: -right iliac angioplasty/stent -right to left fem-fem -left fem-pop -sartorius flaps -cadaver for fem-fem
[2022-07-29] MEDS: Cefazolin 2 GM in 0.9% Normal Saline 100 ML IV (08:11)
[2022-07-29] MEDS: Heparin Injection (Vial) 5,000 UNIT/ML VIAL 5000 UNIT (08:37)
[2022-07-29] MEDS: Heparin 10,000 UNITS/10 ML Vial 10000 UNITS (08:37)
--- NOTE | 2022-07-29 11:14 | RAD_ITS ---
FLUOROSCOPY FOR DOCUMENTATION PURPOSES ONLY INDICATION: Peripheral vascular disease TECHNIQUE: Procedure performed by vascular surgeon including right iliac artery angioplasty. 7 subtraction runs with chemotherapy dose of 157.49 mGy. 765 seconds of fluoroscopy time. Please see procedural report for diagnostic details. RAD/Fluoroscopy 1 Hr or Less IMPRESSION: As above. Electronically Signed: Herman Farmer (Brooks), at 10:57 EDT Reading Location ID and State: [facility] / [place] , Service support ,
--- NOTE | 2022-07-29 15:20 | CASEMGMT ---
RN?CM?FOOD SERVICES DIRECTOR?CM?to room to meet with patient for initial transition planning/care coordination?assessment.?RN?CM?introduced self and role at [facility].? Pt voices understanding and consents to?assessment?at this time.? Pt in bed w/HOB elevated. @ bedside and assisting pt w/dinner. Pt is awake/alert. The following information obtained from pt's . Care providers, pharmacy, and demographics verified/updated at this time. 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 3 sons Living Arrangements: Lives w/, son, and [id number]. Pt independent @ baseline. He is retired, but still works. Transportation:?Pt and both drive. DME: Has a functioning glucometer w/supplies. Uses no DME to ambulate. HHC/SNF: No hx of either. requesting for pt to go to [facility] RU @ discharge. VM left for RIZWANA Benavides. ABBEY/RIZWANA to follow for any further discharge planning/needs.? voices no further concerns/needs at this time.? PLAN:??[facility] ED ENNIS?RN?CM
--- NOTE | 2022-07-29 16:32 | OP.PCM_ITS ---
Report of Operation Date of Procedure: 07/29/22 Pre-Operative Diagnosis: Atherosclerosis with rest pain, wound left lower extre mity Post-Operative Diagnosis: Same Surgery/Procedure Performed:: Right common iliac angioplasty/stent Right external iliac angioplasty Right to Left Fem-Fem with cadaver Left Femoral-Above knee popliteal bypass with reversed GSV Bilateral sartorious flaps Surgeon: Enoc Grubbs Type of Anesthesia: General Estimated Blood Loss (mL): 500 Description of Procedure: HPI: Patient is a 69-year-old male with severe longstanding peripheral vascular disease with multiple prior interventions. He has had rest pain for several years of the left lower extremity and a recent development of new wound which is nonhealing on the left lower extremity. Imaging revealed total occlusion of the left common and external iliac arteries as well as the common femoral, profundofemoral and superficial femoral arteries. There is reconstitution of distal profunda secondary branches as well as above-knee popliteal artery. He is in-stent restenosis of the right external iliac artery stent as well as stenosis in the [place] vessel in the proximal external iliac and distal common iliac on the right. He presents now for multilevel revascularization. Modifier 22 applied to the femoral-femoral bypass as well as the femoral- popliteal bypass due to prolonged procedure time from prior scar of his previous femoral endarterectomies, and need for significant target vessel preparation of the popliteal artery combined adding approximately 1.5 hours of the procedure. Description of procedure: Upon obtaining form consent and verification correct patient procedure site the patient was taken to the operating room was placed under general anesthesia. He was then positioned prepped and draped in usual sterile fashion timeout is performed. The previous vertical left femoral incision was opened with 10 blade and Bovie electrocautery was dissect down th rough subcutaneous tissue. Self-retaining retractors then put in position and further dissection carried down to the femoral artery. Sharp dissection was then used to dissect free the mid to distal common femoral artery down onto the superficial femoral artery which was dissected free circumferentially. Writing was used to place a vessel loop around the superficial femoral artery allowing medial retraction and providing better exposure of the profundofemoral artery. Sharp resection was used to dissect the profundofemoral artery down onto tertiary branches with significant scar at the proximal vessel as well as around the femoral bifurcation. Ultimately able to dissect down onto clean vessel that appeared to be with patent lumen. Right angle was used to place a vessel loop around each of the individual tertiary branches of the profunda. We then turned our attention to the right femoral exposure where the oblique prior incision was opened with 10 blade and Bovie electrocautery was dissect down through subcutaneous tissue. Self-retaining retractors were put into position and dissection carried down to the common femoral artery. Dissection was carried cephalad to the inguinal ligament which was freed along its inferior border and retracted superiorly. Sharp dissection was then used to dissect free the common femoral artery down to the bifurcation and proximal up to the distal extent of the prior external iliac artery stent. Again significant scar was encountered which slowed the dissection process but ultimately were able to get proximal and distal control in satisfactory locations. Right angle used to place a vessel loop around the proximal distal common femoral artery. Next we turned to the left popliteal exposure, a longitudinal incision was made above the knee between the sartorius and abductor muscles. Bovie electrocautery was dissect down through subcutaneous tissue and self-retaining retractors put in position. Further dissection was carried down to the fascia which was incised longitudinally and self-retaining retractors moved deeper in the wound. A combination of blunt and sharp dissection used to dissect down to the above-knee popliteal artery which was diseased at its proximal segment but soft and clamped and will more distally. There was 1 focal area of calcified plaque in the midportion of our intended target which we plan to perform an endarterectomy to prevent anastomosis to be created without having to go to the below-knee popliteal artery. Right angle used to place a vessel loop proximal distal we then turned our attention to the vein harvest. Ultrasound evaluation had revealed a satisfactory sized greater saphenous vein of the right lower extremity so skip incisions were made along the medial aspect of the right thigh and proximal calf over the previously marked vein. Bovie was used to dissect down through the subcutaneous tissue until vein was visualized at this point sharp dissection used to dissect free all of the branches which were ligated with silk ties and divided. Once the vein was fully mobilized for a length adequate for our bypass wet sponges were placed in the wounds and a Susanna tunneler used to tunnel from the left popliteal to the left femoral incision and anatomic space. We then used a short Susanna tunneler to tunnel from the left femoral to right femoral incision. The patient was heparinized with redosing based on ACT results. Next the right common femoral artery was accessed in retrograde fashion using micropuncture needle and wire which was then exchanged for micropuncture sheath. Hand-injection iliac angiography revealed satisfactory position traversing the stent within the lumen. Through the micropuncture sheath a [employer] wire was advanced into the abdominal aorta under fluoroscopic guidance and the micropuncture sheath exchanged out for a 6 Sami marker tip sheath. Angiography of the entirety of the right iliac system was performed which confirmed in-stent restenosis of the external iliac artery stent, as well as stenosis of the proximal external and distal common iliac on the right as well as poor wall apposition of the initially placed common iliac stent in the proximal vessel. The external iliac artery stent was balloon angioplastied with a 6 mm angioplasty balloon along its entirety with continued residual stenosis. It was then dilated with a 7 mm angioplasty balloon which revealed a better results at least in the distal portion of the stent and was felt that drug-coated balloon angioplasty would be sufficient. A 7 mmx 60 Bard Lutonix angioplasty balloon was then advanced into position and inflated to nominal for 3 minutes and then deflated withdrawn. Completion angiography revealed no extravasation or dissection with satisfactory resolution of the distal portion of the stent stenosis. Next an 8 x 60 Cook Zilver paclitaxel coated stent was advanced in position with overlap of the proximal portion of the pre-existing external iliac stent, bridging to the pre-existing common iliac stent. This was then deployed and postdilated with a 7 mm angioplasty balloon with satisfactory stent apposition and expansion. The proximal portion of the newly placed stent and the pre-existing common iliac stent was then angioplastied with an 8 mm x 40 angioplasty balloon. Completion angiography revealed no extravasation or dissection and brisk contrast transit with no significant residual stenosis. We then withdrew our sheath and wire and occluded the right common femoral vessels with Vesseloops. The puncture site arteriotomy was then extended with Darden scissors and a previously thawed cadaver femoral-popliteal artery beveled to match the arteriotomy. This was then secured in position using 6-0 Prolene in a running fashion. After c ompleting the suture line vessels were flushed with the graft and then antegrade flow reestablished. There is satisfactory hemostasis of the suture line as well as of all of the oversewn side branches. This was then marked to maintain orientation and secured to the tunneler and pulled through to the left femoral incision. The left profundofemoral artery was then occluded with Vesseloops and a longitudinal arteriotomy created with 11 blade and extended with Darden scissors. The proximal portion had some intimal hyperplasia occlusive process so a limited endarterectomy was performed also contributed to the modifier 22 requirement of the femorofemoral bypass. The cadaver graft was then cut to length and beveled to match the arteriotomy and anastomosis performed with a 6-0 Prolene in a running fashion. Prior to completing the suture line the vessels were backbled and the graft flushed. After completing the suture line the clamps removed and satisfactory stasis was noted. There was palpable pulse across the anastomosis and low resistant Doppler signal in the graft and triphasic Doppler signal in the profunda. Next we harvested the saphenous vein conduit, ligating the distal vessel with silk tie and medium clips before dividing. The saphenofemoral junction was then clamped and divided and oversewn with 5-0 Prolene. The vein was then flushed with heparinized saline and sideb ranches there were not secure were oversewn with 7-0 Prolene U stitches. They cadaver conduit was then occluded with bulldog clamps and a longitudinal arteriotomy created with an 11 blade extended Darden scissors. The vein was then oriented in reverse fashion and beveled to match the arteriotomy. Anastomosis was performed using 6-0 Prolene in a running fashion. After completing the suture line the graft was flushed into the saphenous conduit with satisfactory stasis noted. The saphenous vein was then marked to maintain orientation, secured to the tunneler and pulled through the popliteal incision. The popliteal artery then occluded with Vesseloops and an atraumatic clamp distally. Longitudinal arteriotomy was created with 11 blade extended Darden scissors. A focal endarterectomy had to be performed in the midportion of the anastomosis with satisfactory endpoint with no need for distal tacking. The graft was then cut the length and beveled to match the arteriotomy and anastomosis performing a 6-0 Prolene in a running fashion. Prior to completing suture line vessel backbled and the graft flushed. After applying suture line clamps removed and satisfactory stasis was noted. There is a palpable less than the graft in the distal vessel with low resistance Doppler signal in the graft. The patient was reversed with protamine. Finally we turned to sartorius flaps, with the left sartorius muscle being mobilized with Bovie along its lateral aspect up to the ASIS. This incision was then taken down with Bovie and the muscle transposed medially with satisfactory coverage of the distal femorofemoral graft as well as the proximal femoropopliteal graft. The wound was inspected for hemostasis and Ceferino topical hemostatic applied. The sartorius was then secured overlying the vessels with interrupted 2-0 Vicryl. Next to the right sartorius muscle was mobilized along its lateral aspect of the ASIS and its insertion divided with Bovie. It was then transposed over the femoral vessels and proximal femorofemoral graft. The wound was inspected hemostasis and Ceferino topical hemostatic applied after which the sartorius was secured over the vessels with 2-0 Vicryl interrupted sutures. The incisions were then closed with 3-0 Vicryl for Monocryl as were the vein harvest and popliteal exposure sites. Prevena wound vacs were placed on the femoral incisions and dry sterile dressings on the remaining incisions. The patient was then awake from anesthesia taken to the intensive care unit for hemodynamic and vascular monitoring. Grafts/Implants Used: Cadaver femoral-popliteal artery
[2022-07-29 16:45] LABS: ACT Activated Clotting Time 161 sec (74-137)
[2022-07-29 16:46] LABS: ACT Activated Clotting Time 269 sec (74-137)
[2022-07-29 16:47] LABS: ACT Activated Clotting Time 263 sec (74-137)
[2022-07-29 16:47] LABS: ACT Activated Clotting Time 269 sec (74-137)
[2022-07-29 16:48] LABS: ACT Activated Clotting Time 263 sec (74-137)
[2022-07-29 16:49] LABS: ACT Activated Clotting Time 251 sec (74-137)
[2022-07-29] MEDS: 0.9% Normal Saline 1,000 ML 125 ML IV (18:23)
[2022-07-29] MEDS: 0.9% Normal Saline 1,000 ML 999 ML IV (18:25)
[2022-07-29 18:44] LABS: Hematocrit 29.3 % (40-54); Hemoglobin 9.4 g/dL (13.0-16.5)
[2022-07-29] MEDS: 0.9% Normal Saline 1,000 ML 200 ML IV ×2 (20:43→23:07)
[2022-07-29] MEDS: Albumin Human 25% (100 mL) 25 GM/100 ML BAG IV (20:48)
[2022-07-29] MEDS: HYDROmorphone Inj 0.2 MG/ML SYRINGE IV (21:07)
[2022-07-29] MEDS: 0.9% Saline Lock 10 ML Syringe IV ×2 (21:08→21:12)
[2022-07-29] MEDS: HEPARIN/D5w 25,000 UNITS 25,000 UNITS/250 ML IV.SOLN. 3 UNITS CONT INF (21:11)
--- NOTE | 2022-07-29 23:22 | NURSING ---
Pt refusing his evening pills, including his 300mg plavix. Pt had tried to swallow a pill earlier and had difficulty with it getting stuck on his tongue. Pt does not want to try taking them again. This RN explained the importance of pt's ordered medications, especially the plavix. Pt verbalizes understanding but still refuses. Dr. Grubbs notified. No further orders.
[2022-07-30] VITALS (25 sets, daily range): BP systolic 100–142; BP diastolic 52–72; PULSE 83–105; RESP 12–24; TEMP 36.9–37.2; O2SAT 90–99; BMI 19.5
[2022-07-30 03:38] LABS: Absolute Lymphocyte Count 0.99 X10^3/uL (0.83-4.51); Absolute Neutrophil Count 8.4 X10^3/uL (2.0-7.7); Basophil# 0.01 X10^3/uL; Basophil% 0.1 % (0-1); Hematocrit 27.8 % (40-54); Hemoglobin 9.1 g/dL (13.0-16.5); Lymphocyte # 0.99 X10^3/ul (0.83-4.51); Lymphocyte % 9.5 % (19-41); Mean Corp Hgb Conc 32.7 g/dL (32-36); Mean Corpuscular Hgb 29.5 pg (27.0-32.0); Mean Corpuscular Volume 90.3 fL (80-94); Mean Platelet Vol. 9.9 fl (6.2-12.0); Monocyte# 0.95 X10^3/uL; Monocyte% 9.1 % (0-10); NRBC Flagged by Analyzer 0 % (0-5); Neutrophil % 80.8 % (47-70); Platelet Count 160 K/mm3 (150-450); RBC Distribution Width CV 13.5 % (11.6-14.6); RBC Distribution Width SD 44.4 fl (35.1-43.9); Red Blood Count 3.08 M/mm3 (4.6-6.2); White Blood Count 10.4 K/mm3 (4.4-11.0)
[2022-07-30 03:55] LABS: Anion Gap 7 (5-15); BUN 24 mg/dL (7-18); BUN/Creat Ratio 24.4 RATIO (10-20); Calcium,Total 7.7 mg/dL (8.5-10.1); Chloride 111 mmol/L (98-107); Creatinine, Serum 0.98 mg/dL (0.70-1.30); EST Glomerular Filtration Rate 80 mL/min (>60); Est Glom Filt Rate - Afr Amer 96 mL/min (>60); Estimated Creatinine Clearance 43.37 ml/min; Glucose 117 mg/dL (74-106); Magnesium 1.4 mg/dL (1.6-2.6); Phosphorus 3.6 mg/dL (2.5-4.9); Potassium 4.5 mmol/L (3.5-5.1); Sodium Level 141 mmol/L (136-145)
[2022-07-30] MEDS: 0.9% Normal Saline 1,000 ML 200 ML IV (06:20)
--- NOTE | 2022-07-30 08:57 | PCM.PN.SRG ---
Subjective Subjective Doing well today, sore at surgical sites. Post op hypotension resolved. Has not yet ambulated or voided, wants to eat. Objective Data Objective Data Awake, alert, NAD RRR Resp non-labored +pulse in fem-fem bypass +left popliteal/DP/PT doppler signals, biphasic +right DP/PT monophasic Vital Signs: Vital Signs Temp Pulse Resp BP Pulse Ox O2 Del Method O2 Flow Rate 98.9 F 95 14 123/72 H 96 Nasal Cannula 2 07/30/22 08:16 07/30/22 08:16 07/30/22 08:16 07/30/22 08:16 07/30/22 08:16 07/30/22 08:16 07/30/22 08:16 Oxygen Flow Rate (L/min) 2 Oxygen Delivery Method Nasal Cannula Weight: 113 lb 12.136 oz Body Mass Index (BMI) 19.5 Intake & Output: Intake and Output for Last 24 Hours 07/28/22 07/29/22 07/30/22 23:59 23:59 23:59 Intake Total 2631.17 / 2631.17 1256.67 / 1256.67 Output Total 300 / 450 300 / 300 Balance 2331.17 / 2181.17 956.67 / 956.67 Lab / Micro Data Result Diagrams: 07/30/22 03:30 07/30/22 03:30 Labs: Laboratory Results - last 24 hr 07/29/22 08:17: Activated Clotting Time 161 H 07/29/22 11:45: Activated Clotting Time 269 H 07/29/22 12:25: Activated Clotting Time 269 H 07/29/22 13:11: Activated Clotting Time 263 H 07/29/22 13:49: Activated Clotting Time 263 H 07/29/22 15:02: Activated Clotting Time 251 H 07/29/22 18:35: Hgb 9.4 L, Hct 29.3 L 07/29/22 19:53: Blood Type O POSITIVE, Antibody Screen NEGATIVE, Crossmatch See Detail 07/30/22 03:30: WBC 10.4, RBC 3.08 L, Hgb 9.1 L, Hct 27.8 L, MCV 90.3, MCH 29.5, MCHC 32.7, RDW Std Deviation 44.4 H, RDW Coeff of Barbara 13.5, Plt Count 160, MPV 9.9, Immature Gran % (Auto) 0.500, Neut % (Auto) 80.8 H, Lymph % (Auto) 9.5 L, [place] % (Auto) 9.1, Eos % (Auto) 0.0, Baso % (Auto) 0.1, Absolute Neuts (auto) 8.4 H, Absolute Lymphs (auto) 0.99, Nucleated RBC % 0 07/30/22 03:30: Sodium 141, Potassium 4.5, Chloride 111 H, Carbon Dioxide 23.0, Anion Gap 7, BUN 24 H, Creatinine 0.98, Estim Creat Clear Calc 43.37, Est GFR (MDRD) Af Amer 96, Est GFR (MDRD) Non-Af 80, BUN/Creatinine Ratio 24.4 H, Glucose 117 H, Calcium 7.7 L, Phosphorus 3.6, Magnesium 1.4 L Assessment & Plan Assessment/Plan (1) Atherosclerosis of [place] arteries of extremities with rest pain, left leg: PLAN: -clears and advance diet -HLIV, DC mckay and abelardo line -OOB -recheck hgb later today -cont low dose heparin -plavix load today -if cont stable then possible to PCU later today
--- NOTE | 2022-07-30 09:25 | CASEMGMT ---
KIKO POTTER Assessment: Face to Face with pt for initial transition planning/care coordination assessment. RN ABBEY introduced self and role at [facility], pt voices understanding and consents to assessment. Pt is A/O x4 and answers all questions appropriately at this time. Pt has 2 sisters Patricia and Kimberly present in room and is agreeable to assessment with them present. Care providers, pharmacy, and demographics verified/updated. Admitting Dx: Rt to lt fem fem bypap, poss lt fem pop PCP:Dm Specialists:amy Grubbs [place] Preferred Pharmacy: [facility] Insurance: [facility], [facility] [place] Prescription Benefit: no, uses [facility] LNOK: Ruthy Vaz, Living Arrangements: Pt lives with in a two story home with 2 steps to enter with a rail. Pt reports he is I in ADL' s and denies concerns at home. Transportation: Pt drives self and denies concerns with transportation. DME/HHC/SNF: Pt has a walk in shower with grab bars x3 in the bathroom, a cane that he normally uses and a FWW available if needed. Pt denies hx of HHC or SNF stays. Pt states no concerns with going home at time of dc. Pt states no further concerns/needs. CM to follow. Advised pt to ask CM if any further question/concerns/needs arise, voices understanding. Pt Goal: Home Plan: Home
[2022-07-30] MEDS: Losartan Potassium 50 MG Tablet 100 MG PO (10:10)
[2022-07-30] MEDS: Aspirin E.C. 81 MG Tablet PO (10:10)
[2022-07-30] MEDS: dilTIAZem CD 180 MG Capsule PO (10:11)
[2022-07-30] MEDS: hydroCHLOROthiazide 12.5mg 12.5 MG PO (10:11)
[2022-07-30] MEDS: Cilostazol 50 MG Tablet PO (10:11)
[2022-07-30] MEDS: Clopidogrel Bisulfate 300 MG Tablet PO (10:24)
[2022-07-30 12:12] LABS: Hematocrit 28.5 % (40-54); Hemoglobin 9.3 g/dL (13.0-16.5)
[2022-07-30] MEDS: Acetaminophen 500 MG Tablet 1000 MG PO ×2 (13:25→22:23)
[2022-07-30] MEDS: oxyCODONE 5 MG Tablet PO (13:25)
[2022-07-30] MEDS: Calcium Carbonate 500 MG Tablet 1000 MG PO (17:47)
[2022-07-30] MEDS: Atorvastatin Calcium 20 MG Tablet PO (22:20)
[2022-07-31] VITALS (11 sets, daily range): BP systolic 123–144; BP diastolic 61–69; PULSE 66–99; RESP 16–23; TEMP 36.6–37; O2SAT 88–97; BMI 19.8
[2022-07-31 04:37] LABS: Absolute Neutrophil Count 8.6 X10^3/uL (2.0-7.7); Basophil# 0.02 X10^3/uL; Basophil% 0.2 % (0-1); Eosinophil# 0.09 X10^3/uL; Eosinophils% 0.8 % (0-5); Hematocrit 27.7 % (40-54); Hemoglobin 9.2 g/dL (13.0-16.5); Lymphocyte % 11.1 % (19-41); Mean Corp Hgb Conc 33.2 g/dL (32-36); Mean Corpuscular Hgb 29.9 pg (27.0-32.0); Mean Corpuscular Volume 89.9 fL (80-94); Mean Platelet Vol. 10.2 fl (6.2-12.0); Monocyte# 0.83 X10^3/uL; Monocyte% 7.7 % (0-10); NRBC Flagged by Analyzer 0 % (0-5); Neutrophil # 8.64 X10^3/uL (2.7-7.7); Neutrophil % 79.8 % (47-70); Platelet Count 164 K/mm3 (150-450); RBC Distribution Width CV 13.9 % (11.6-14.6); RBC Distribution Width SD 45.3 fl (35.1-43.9); Red Blood Count 3.08 M/mm3 (4.6-6.2); White Blood Count 10.8 K/mm3 (4.4-11.0)
[2022-07-31] MEDS: Acetaminophen 500 MG Tablet 1000 MG PO ×2 (05:39→15:28)
[2022-07-31] MEDS: Tamsulosin HCl 0.4 MG Capsule PO (07:01)
[2022-07-31] MEDS: Losartan Potassium 50 MG Tablet 100 MG PO (08:29)
[2022-07-31] MEDS: hydroCHLOROthiazide 12.5mg 12.5 MG PO (08:30)
[2022-07-31] MEDS: Cilostazol 50 MG Tablet PO (08:30)
[2022-07-31] MEDS: Aspirin E.C. 81 MG Tablet PO (08:30)
[2022-07-31] MEDS: dilTIAZem CD 180 MG Capsule PO (08:31)
[2022-07-31] MEDS: Clopidogrel Bisulfate 75 MG Tablet PO (08:33)
--- NOTE | 2022-07-31 11:01 | PN.SURG_ITS ---
Subjective Subjective Has had trouble voiding, had to have straight cath yesterday evening. This morning received flomax. Said he has been drinking water and coffee this morning and so far has not voided and does not even have the urge to do so. He has been on 2L O2 via NC as he had been desaturating to high 80s on room air when sitting. He is not on oxygen at home, does not follow with pulmonary but does have significant smoking history Otherwise, he is tolerating normal diet. He has been up to the chair without issue, has walked minimally but no issues so far. His pain is well controlled, sore around the incision sites. His BP and H&H remain stable. Objective Data Objective Data Vital Signs: Vital Signs Temp Pulse Resp BP Pulse Ox O2 Del Method O2 Flow Rate 98.4 F 76 23 H 144/69 H 97 Room Air 2 07/31/22 08:28 07/31/22 08:28 07/31/22 08:28 07/31/22 08:28 07/31/22 08:28 07/31/22 08:30 07/31/22 06:00 Oxygen Flow Rate (L/min) 2 Oxygen Delivery Method Room Air Weight: 115 lb 11.883 oz Body Mass Index (BMI) 19.8 Intake & Output: Intake and Output for Last 24 Hours 07/29/22 07/30/22 07/31/22 23:59 23:59 23:59 Intake Total 2631.17 / 2631.17 2020.00 / 2070.00 160.45 / 160.45 Output Total 300 / 450 550 / 550 820 / 820 Balance 2331.17 / 2181.17 1470.00 / 1520.00 -659.55 / -659.55 Lab / Micro Data Result Diagrams: 07/31/22 04:30 07/30/22 03:30 Labs: Laboratory Results - last 24 hr 07/30/22 12:03: Hgb 9.3 L, Hct 28.5 L 07/31/22 04:30: WBC 10.8, RBC 3.08 L, Hgb 9.2 L, Hct 27.7 L, MCV 89.9, MCH 29.9, MCHC 33.2, RDW Std Deviation 45.3 H, RDW Coeff of Barbara 13.9, Plt Count 164, MPV 10.2, Immature Gran % (Auto) 0.400, Neut % (Auto) 79.8 H, Lymph % (Auto) 11.1 L, [place] % (Auto) 7.7, Eos % (Auto) 0.8, Baso % (Auto) 0.2, Absolute Neuts (auto) 8.6 H, Absolute Lymphs (auto) 1.20, Nucleated RBC % 0 Physical Exam Const alert, oriented x3 and no apparent distress General Appearance: cooperative and comfortable HEENT normocephalic, head/scalp atraumatic, hearing grossly normal bilaterally and external ears normal Nose: external nose normal Eyes EOMs intact bilaterally General Eye: normal appearance of both eyes Resp normal respiratory effort, no retractions and no use of accessory muscles Effort and Inspection: able to speak in complete sentences; Negative for labored, stridor or audible wheezes Cardio regular rate and regular rhythm Peripheral Pulses: brachial pulses present and radial pulses present Extremity Extremity Narrative: Bilateral groin incision sites with vacuum dressing intact and right and left le g incision C/D/I, no significant erythema, swelling, drainage, bleeding, ecchymosis/hematoma noted. Neuro oriented x3, CN's II-XII intact bilaterally, moves all extremities and no focal motor deficits Speech: speech normal Psych mental status grossly normal Attitude: calm and engaged Activity / Motor Behavior: appropriate eye contact Speech: normal speech Mood & Affect: euthymic mood Attention / Concentration: attention grossly intact Memory / Cognition: memory grossly intact Judgement: judgement good Assessment & Plan Assessment/Plan (1) Atherosclerosis of [place] arteries of extremities with rest pain, left leg: PLAN: Patient continues to have difficulty urinating. Flomax was given. He has voided 100 cc total this morning. Will see how he does over the next few hours. If difficulty voiding persists, plan to place bashir with leg bag for discharge, and would see him outpatient for continued management. He has not ambulated very much, except to get to chair. Ask that he try to ambulate more today, will have therapy see him as well. Will work on weaning off supplemental O2 since he is not normally on any at home. Otherwise, patient is feeling well. His pain is well-managed, he is tolerating diet. He is hemodynamically stable. He does not feel quite ready for discharge at this time, will continue to monitor and see how he does with ambulation and voiding trials.
[2022-07-31] MEDS: CHLORHEXIDINE GLUC 2% CLOTH 1 EACH TOWELETTE TOPICAL (15:32)
[2022-07-31 17:25] LABS: Bedside Glucose 99 mg/dL (74-106)
[2022-07-31] MEDS: Ondansetron 4 MG/2 ML Vial IV (22:32)
[2022-07-31] MEDS: Calcium Carbonate 500 MG Tablet 1000 MG PO (22:32)
[2022-08-01] VITALS (16 sets, daily range): BP systolic 89–163; BP diastolic 50–64; PULSE 78–102; RESP 14–21; TEMP 36.3–37.4; O2SAT 90–98; BMI 19.3
--- NOTE | 2022-08-01 01:34 | NURSING ---
x2 emesis, pt c/o heartburn. Brown colored emesis, Dr. Grubbs notified. Per Dr. Grubbs, let him know if emesis becomes coffee ground emesis or bright red blood.
--- NOTE | 2022-08-01 01:57 | RAD_ITS ---
EXAM: XR ABDOMEN, 1 VIEW CLINICAL INDICATION: coffee ground emesis TECHNIQUE: Frontal supine view of the abdomen/pelvis. This report was created using [employer] report generation technology. COMPARISON: None. FINDINGS: LOWER THORAX: Right pleural parenchymal scarring. INTRAPERITONEAL SPACE: Limited assessment for free air on supine position. GASTROINTESTINAL TRACT: Prominent loops of gas-filled bowel are identified. If concern for developing bowel obstruction recommend CT. ORGANS: Unremarkable as visualized. No organomegaly. No abnormal calcifications. BONES/JOINTS: Scoliosis. Diffuse osteopenia. No suspicious lytic or sclerotic lesions of bone. SOFT TISSUES: Evidence of prior abdominal wall hernia repair. VASCULATURE: Atherosclerotic calcifications of the nonaneurysmal aorta and iliac arteries. Bilateral common iliac artery stents are identified. RAD/Abdomen Single View (Portable) IMPRESSION: 1. Prominent loops of gas-filled bowel are identified. If concerned for a developing bowel obstruction, recommend CT. 2. No other acute disease. Ancillary findings as above. Electronically Signed: Israel Troy MD at 2:22 EDT ,
[2022-08-01] MEDS: Famotidine 20 MG Tablet PO (02:37)
[2022-08-01 04:12] LABS: Anion Gap 10 (5-15); BUN 28 mg/dL (7-18); BUN/Creat Ratio 27.2 RATIO (10-20); Calcium,Total 8.9 mg/dL (8.5-10.1); Chloride 103 mmol/L (98-107); Creatinine, Serum 1.03 mg/dL (0.70-1.30); EST Glomerular Filtration Rate 75 mL/min (>60); Est Glom Filt Rate - Afr Amer 91 mL/min (>60); Estimated Creatinine Clearance 48.14 ml/min; Glucose 122 mg/dL (74-106); Potassium 3.7 mmol/L (3.5-5.1); Sodium Level 140 mmol/L (136-145)
[2022-08-01 04:55] LABS: Absolute Lymphocyte Count 0.59 X10^3/uL (0.83-4.51); Absolute Neutrophil Count 8.8 X10^3/uL (2.0-7.7); Basophil# 0.01 X10^3/uL; Basophil% 0.1 % (0-1); Hematocrit 26.1 % (40-54); Hemoglobin 8.5 g/dL (13.0-16.5); Lymphocyte # 0.59 X10^3/ul (0.83-4.51); Lymphocyte % 5.9 % (19-41); Mean Corp Hgb Conc 32.6 g/dL (32-36); Mean Corpuscular Hgb 29.3 pg (27.0-32.0); Mean Platelet Vol. 10.7 fl (6.2-12.0); NRBC Flagged by Analyzer 0 % (0-5); Neutrophil # 8.84 X10^3/uL (2.7-7.7); Neutrophil % 87.8 % (47-70); POSITIVE DIFFERENTIAL YES; Platelet Count 167 K/mm3 (150-450); RBC Distribution Width CV 13.3 % (11.6-14.6); RBC Distribution Width SD 44.1 fl (35.1-43.9); White Blood Count 10.1 K/mm3 (4.4-11.0)
[2022-08-01 04:57] LABS: Differential Indicated SCAN CRITERIA MET
[2022-08-01 05:08] LABS: Differential Comment SCANNED
--- NOTE | 2022-08-01 05:45 | NURSING ---
Pt has thrown up 5x total this shift of coffee ground emesis. Dr. Grubbs made aware of the situation and this Rn was given verbal orders to do a KUB, 20mg of pepcid and carafate as well orders to put in morning labs.
--- NOTE | 2022-08-01 05:49 | NURSING ---
Dr. Grubbs was made aware of KUB impression. This RN was given no further orders at this time.
[2022-08-01] MEDS: Ondansetron 4 MG/2 ML Vial IV (06:32)
[2022-08-01] MEDS: Aspirin E.C. 81 MG Tablet PO (08:59)
[2022-08-01] MEDS: dilTIAZem CD 180 MG Capsule PO (08:59)
[2022-08-01] MEDS: Clopidogrel Bisulfate 75 MG Tablet PO (08:59)
[2022-08-01] MEDS: Losartan Potassium 50 MG Tablet 100 MG PO (08:59)
[2022-08-01] MEDS: hydroCHLOROthiazide 12.5mg 12.5 MG PO (09:30)
[2022-08-01] MEDS: Cilostazol 50 MG Tablet PO (09:30)
[2022-08-01] MEDS: Tamsulosin HCl 0.4 MG Capsule PO (09:30)
--- NOTE | 2022-08-01 09:46 | PN.SURG_ITS ---
Subjective Subjective Had a rough night last night, N/V multiple episodes with concern for coffee ground appearance. Feeling better this morning. -F/BM. Objective Data Objective Data A&O x 3, NAD Tachycardic, Reg Rhythm soft, NT, ND +fem-fem pulse mild bilateral edema normal capillary refill, pink/warm feet Vital Signs: Vital Signs Temp Pulse Resp BP Pulse Ox O2 Del Method O2 Flow Rate 98.3 F 102 H 18 163/61 H 94 Nasal Cannula 2 08/01/22 03:28 08/01/22 03:28 08/01/22 03:28 08/01/22 03:28 08/01/22 03:28 08/01/22 07:47 08/01/22 07:47 Oxygen Flow Rate (L/min) [ 2 AMBULATING with Oxygen #1] Oxygen Flow Rate (L/min) [At 2 REST with Oxygen] Oxygen Flow Rate (L/min) 2 Oxygen Delivery Method Nasal Cannula Weight: 112 lb 10.499 oz Body Mass Index (BMI) 19.3 Intake & Output: Intake and Output for Last 24 Hours 07/30/22 07/31/22 08/01/22 23:59 23:59 23:59 Intake Total 2020.00 / 2070.00 175.45 / 175.45 124.55 / 124.55 Output Total 550 / 550 1370 / 1370 850 / 850 Balance 1470.00 / 1520.00 -1194.55 / -1194.55 -725.45 / -725.45 Lab / Micro Data Result Diagrams: 08/01/22 03:49 08/01/22 03:49 Labs: Laboratory Results - last 24 hr 07/31/22 17:05: POC Glucose 99 08/01/22 03:49: Sodium 140, Potassium 3.7, Chloride 103, Carbon Dioxide 27.0, Anion Gap 10, BUN 28 H, Creatinine 1.03, Estim Creat Clear Calc 48.14, Est GFR (MDRD) Af Amer 91, Est GFR (MDRD) Non-Af 75, BUN/Creatinine Ratio 27.2 H, Glucose 122 H, Calcium 8.9 08/01/22 03:49: WBC 10.1, RBC 2.90 L, Hgb 8.5 L, Hct 26.1 L, MCV 90.0, MCH 29.3, MCHC 32.6, RDW Std Deviation 44.1 H, RDW Coeff of Barbara 13.3, Plt Count 167, MPV 10.7, Immature Gran % (Auto) 0.200, Neut % (Auto) 87.8 H, Lymph % (Auto) 5.9 L, [place] % (Auto) 6.0, Eos % (Auto) 0.0, Baso % (Auto) 0.1, Absolute Neuts (auto) 8.8 H, Absolute Lymphs (auto) 0.59 L, Nucleated RBC % 0, Differential Comment SCANNED Radiography Diagnostic Testing: Radiology Impression KUB X-Ray 08/01/22 01:57 IMPRESSION: 1. Prominent loops of gas-filled bowel are identified. If concerned for a developing bowel obstruction, recommend CT. 2. No other acute disease. Ancillary findings as above. Electronically Signed: Israel Troy MD at 2:22 EDT Reading Location ID and State: [facility] / [place] Tel , Service support , Assessment & Plan Assessment/Plan (1) Atherosclerosis of [place] arteries of extremities with rest pain, left leg: PLAN: -POD # 3 fem-fem, iliac stent, fem-pop -had severe reflux/heartburn before N/V; ate pepperoni pizza for dinner which he feels incited things -minimal drop in Hgb; will repeat later today -cont asa, plavix, heparin off -protonix IV for now, PO once sure he is able to tolerate meds; carafate -colace/dulcolax -may re-attempt clears later today -home when bowel function returns and able to tolerate PO
[2022-08-01] MEDS: Bisacodyl 10 MG Suppository RC (10:48)
[2022-08-01] MEDS: Docusate Sodium 100 MG Capsule PO (10:48)
[2022-08-01] MEDS: Sucralfate 1 GM Tablet PO ×3 (11:39→20:56)
[2022-08-01] MEDS: Albuterol 2.5 MG/3 ML VIAL.NEB. INHALATION ×2 (13:19→16:21)
--- NOTE | 2022-08-01 13:32 | CASEMGMT ---
KIKO POTTER Follow-up: Per Dr. Grubbs, pt may need home O2 at discharge. This RN CM to pt's bedside. Pt awake and present. Discussed possible need for home O2 at discharge. Pt's states she has home O2 that she wears at HS only and receives this from [employer]. Pt and prefer [employer] if home O2 is needed. 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 Dr. Grubbs to return around 1600 to make decision. Tk Pillai RN CM
[2022-08-01 14:52] LABS: Hematocrit 22.6 % (40-54); Hemoglobin 7.4 g/dL (13.0-16.5)
--- NOTE | 2022-08-01 16:05 | RAD_ITS ---
EXAM: XR CHEST, 1 VIEW CLINICAL INDICATION: hypoxia TECHNIQUE: Frontal view of the chest. This report was created using [employer] report generation technology. COMPARISON: 01/18/2020 FINDINGS: LUNGS AND PLEURAL SPACES: There are interstitial opacities bilaterally which may represent scar or mild edema. There is blunting of the left costophrenic angle which may represent pleural effusion or scarring. No pneumothorax. HEART: Unremarkable. Cardiac silhouette not enlarged. MEDIASTINUM: Central airways and mediastinal contour are unremarkable. BONES/JOINTS: There is a scoliotic deformity of the thoracic spine. SOFT TISSUES: Unremarkable. RAD/Chest 1 View (Portable) IMPRESSION: Interstitial opacities which may represent scar or edema. There is no focal consolidation. Electronically Signed: Wolfgang Barnes MD at 16:24 EDT ,
--- NOTE | 2022-08-01 19:34 | PCM.CONS.GEN ---
Assessment & Plan Assessment/Plan (1) Atherosclerosis of lower extremity with claudication: PLAN: Plan #Increasing hypoxia with suspected history of COPD -Unclear etiology at this time -Chest x-ray today with interstitial opacities which may be scar or edema but there is no focal consolidation, no recent chest x-ray for comparison however -We will add on BNP and also order respiratory panel and COVID, encourage incentive spirometry -No acute infiltrate and has a chronic cough with no increase in sputum production so do not feel we need antibiotics at this time -There is suspicion of COPD, has albuterol as needed however we will schedule nebs, does not have significant wheezes and does not particularly feel more short of breath so steroids have not been started but if any worsening or increasing requirements can consider this and can also consider CT chest to better evaluate lung parenchyma if patient does not improve -Pending BNP, if breathing worsens overnight and BNP elevated can consider BiPAP and/or Lasix #Postop anemia -There was a question of coffee-ground emesis yesterday as patient vomited 5 times last night, he reports he does not think that there is any blood but he did have some heartburn around that time and staff described as coffee-ground -Agree with PPI drip and sucralfate -He is receiving a unit of blood presently and H&H is to be rechecked after -Denies any blood per rectum -Stool occult ordered however with his reported heartburn and concern for coffee-ground emesis yesterday with need for repeat packed red blood cells today we will consult GI -Discussed with vascular, continuing aspirin and Plavix at this time. If absolutely necessary could consider holding Plavix as a last line but if possible will need to continue both #Peripheral vascular disease -Status post intervention with Dr. Grubbs 07/29 -On aspirin, statin, Plavix, cilostazol #Hypertension -Given his hypotension earlier we will hold Cardizem, decrease losartan and add holding parameters for hydrochlorothiazide and losartan as BP is already starting to improve based on most recent vitals -Due to most recent BP improved we will hold off on bolusing with fluids given respiratory status #DVT ppx: Is on heparin subq Lizzy Meza MD Time spent in the patient's overall evaluation,decision-making process, review of diagnostic data, adjustment of management, discussion with other providers, nursing nursing and ancillary staff involved in patient's care documentation, 45 Minutes HPI Consult Data Date of Consult: 08/01/22 HPI Narrative Reason for Consultation: Increasing O2 requirements HPI Narrative: RYAN ESCOBAR, is a 71 M with a history of peripheral vascular disease who presented to [facility] 07/29/2022 for severe bilateral lower extremity peripheral arterial occlusive disease. He underwent extensive vascular intervention and tolerated that well. He did have some postop hypotension and was briefly in the ICU but this resolved and he was transferred to the floor yesterday. He had some heartburn and some nausea and had 5 episodes of emesis which were dark and there was concern it could be coffee-ground. He was placed on a PPI drip and monitored. Over the past day he has not had any more emesis or abdominal pain but has a little bit of nausea, he did have a hemoglobin of 7.4 on recheck today and is receiving another unit of packed red blood cells and also has had some increasing O2 requirements so hospitalist consulted for assistance with management. When evaluated patient he reports he feels somewhat tired but overall not doing poorly. Reports no problems with his legs, no shortness of breath out of proportion to how he usually feels, has chronic cough and does not feel this is changed. Denies abdominal pain or any further epigastric burning. Reports he is actually been constipated and has not noted any blood per rectum. [facility] Medical History (Updated 07/15/22 @ 13:36 by Christy Carbajal) Alcohol abuse Back pain COPD (chronic obstructive pulmonary disease) Edema Hard of hearing Head injury Heartburn High cholesterol History of stress test HTN (hypertension) Hypoglycemia Leg cramps Leg pain Neuropathy Osteoporosis PAOD (peripheral arterial occlusive disease) Passed out Peripheral arterial occlusive disease Shortness of breath Smoker Wears eyeglasses Home Medications diltiazem HCl 180 mg capsule,extended release 24 hr 180 mg PO DAILY BP 06/20/14 [History Last Taken 07/29/22] valsartan 320 mg-hydrochlorothiazide 12.5 mg tablet 320 mg PO DAILY BP 06/20/14 [History Last Taken 01/18/20] glucose 4 gram chewable tablet 4 g PO DAILY sugar 01/18/20 [History Last Taken 01/18/20] aspirin 81 mg tablet,delayed release (Adult Low Dose Aspirin) 81 mg PO DAILY SUPPLEMENT 05/02/22 [History Last Taken 07/28/22] cilostazol 50 mg tablet 50 mg PO DAILY BONE 07/15/22 [History Last Taken Unknown] rosuvastatin 10 mg tablet (Crestor) 10 mg PO QHS CHOLESTEROL 07/15/22 [History Last Taken Unknown] Allergy/AdvReac Type Severity Reaction Status Date / Time ciprofloxacin HCl Allergy Severe Nausea Verified 07/29/22 06:20 [From Cipro] Family History Father Hypertension Cancer lung Other Osteoporosis Surgical History (Updated 07/15/22 @ 13:36 by Christy Carbajal) Hx of colonoscopy Hx of left cataract extraction Hx of right cataract extraction Status post peripheral artery angioplasty Social History Smoking Status: Current every day smoker tobacco type: cigarettes ROS ROS Narrative General: Denies fever/chills HENT: Denies headache, denies stuffy nose, denies sore throat EYES: Chronic worsening in vision Resp: Denies worsening of shortness of breath, has chronic cough that he does not feel is changed Cardiac: Denies chest pain GI: Denies abdominal pain, has reported some constipation, some nausea without any further vomiting : Denies changes in urination Extremity: Denies swelling MSK: Denies weakness Neuro: Denies any numbness/tingling Heme: Bruises easily Skin: Denies rashes Psychiatric: No complaints voiced Physical Exam Narrative General: Alert, oriented, no apparent distress HEENT: Atraumatic, normocephalic Eyes: Anicteric, normal conjunctiva, extraocular movements grossly intact Neck: Supple Respiratory: Somewhat diminished at the bases, do not appreciate crackles, did not appreciate wheezes, normal respiratory effort Cardiovascular: Regular rate and rhythm GI: Soft, nontender, nondistended Extremities: No edema Musculoskeletal: Moving all extremities Neuro: No overt focal neurological deficits Skin: No rashes appreciated Psych: Cooperative Lab / Micro Data Result Diagrams: 08/01/22 14:25 08/01/22 03:49 Labs: Laboratory Results - last 24 hr 08/01/22 03:49: Sodium 140, Potassium 3.7, Chloride 103, Carbon Dioxide 27.0, Anion Gap 10, BUN 28 H, Creatinine 1.03, Estim Creat Clear Calc 48.14, Est GFR (MDRD) Af Amer 91, Est GFR (MDRD) Non-Af 75, BUN/Creatinine Ratio 27.2 H, Glucose 122 H, Calcium 8.9 08/01/22 03:49: WBC 10.1, RBC 2.90 L, Hgb 8.5 L, Hct 26.1 L, MCV 90.0, MCH 29.3, MCHC 32.6, RDW Std Deviation 44.1 H, RDW Coeff of Barbara 13.3, Plt Count 167, MPV 10.7, Immature Gran % (Auto) 0.200, Neut % (Auto) 87.8 H, Lymph % (Auto) 5.9 L, [place] % (Auto) 6.0, Eos % (Auto) 0.0, Baso % (Auto) 0.1, Absolute Neuts (auto) 8.8 H, Absolute Lymphs (auto) 0.59 L, Nucleated RBC % 0, Differential Comment SCANNED 08/01/22 14:25: Hgb 7.4 L, Hct 22.6 L 08/01/22 16:15: Blood Type O POSITIVE, Antibody Screen NEGATIVE, Crossmatch See Detail Radiology Impression KUB X-Ray 08/01/22 01:57 IMPRESSION: 1. Prominent loops of gas-filled bowel are identified. If concerned for a developing bowel obstruction, recommend CT. 2. No other acute disease. Ancillary findings as above. Electronically Signed: Israel Troy MD at 2:22 EDT , Chest X-Ray 08/01/22 16:05 IMPRESSION: Interstitial opacities which may represent scar or edema. There is no focal consolidation. Electronically Signed: Wolfgang Barnes MD at 16:24 EDT , Charges/Coding Visit Charges Office Visits / Consults: [id number] OV L4 Est
[2022-08-01 20:23] LABS: BNP,B-Type NATRIURETIC PEPTIDE 97.6 pg/mL (0-100)
[2022-08-01] MEDS: Atorvastatin Calcium 20 MG Tablet PO (20:57)
[2022-08-01] MEDS: Acetaminophen 500 MG Tablet 1000 MG PO (20:58)
[2022-08-01] MEDS: Ipratropium/Albuterol Sulfate 3 ML AMPUL.NEB INHALATION (21:06)
[2022-08-01 22:46] LABS: Hematocrit 24.2 % (40-54); Hemoglobin 8.1 g/dL (13.0-16.5)
[2022-08-02] VITALS (8 sets, daily range): BP systolic 111–159; BP diastolic 50–81; PULSE 86–106; RESP 15–20; TEMP 36.3–37.4; O2SAT 89–94; BMI 19.5
[2022-08-02] MEDS: Ipratropium/Albuterol Sulfate 3 ML AMPUL.NEB INHALATION (03:24)
[2022-08-02] MEDS: Sucralfate 1 GM Tablet PO ×4 (05:59→23:22)
[2022-08-02] MEDS: Acetaminophen 500 MG Tablet 1000 MG PO (05:59)
[2022-08-02 06:49] LABS: Absolute Lymphocyte Count 0.96 X10^3/uL (0.83-4.51); Absolute Neutrophil Count 6.7 X10^3/uL (2.0-7.7); Basophil# 0.02 X10^3/uL; Basophil% 0.2 % (0-1); Eosinophil# 0.08 X10^3/uL; Eosinophils% 0.9 % (0-5); Hematocrit 25.5 % (40-54); Hemoglobin 8.3 g/dL (13.0-16.5); Lymphocyte # 0.96 X10^3/ul (0.83-4.51); Lymphocyte % 11.3 % (19-41); Mean Corp Hgb Conc 32.5 g/dL (32-36); Mean Corpuscular Hgb 29.7 pg (27.0-32.0); Mean Corpuscular Volume 91.4 fL (80-94); Mean Platelet Vol. 10.9 fl (6.2-12.0); Monocyte# 0.74 X10^3/uL; Monocyte% 8.7 % (0-10); NRBC Flagged by Analyzer 0 % (0-5); Neutrophil # 6.69 X10^3/uL (2.7-7.7); Neutrophil % 78.4 % (47-70); Platelet Count 154 K/mm3 (150-450); RBC Distribution Width CV 14.3 % (11.6-14.6); RBC Distribution Width SD 47.8 fl (35.1-43.9); Red Blood Count 2.79 M/mm3 (4.6-6.2); White Blood Count 8.5 K/mm3 (4.4-11.0)
[2022-08-02 07:17] LABS: Anion Gap 10 (5-15); BUN 23 mg/dL (7-18); BUN/Creat Ratio 24.3 RATIO (10-20); Calcium,Total 8.5 mg/dL (8.5-10.1); Chloride 102 mmol/L (98-107); Creatinine, Serum 0.94 mg/dL (0.70-1.30); EST Glomerular Filtration Rate 83 mL/min (>60); Est Glom Filt Rate - Afr Amer 101 mL/min (>60); Estimated Creatinine Clearance 51.74 ml/min; Glucose 82 mg/dL (74-106); Potassium 3.4 mmol/L (3.5-5.1); Sodium Level 139 mmol/L (136-145)
--- NOTE | 2022-08-02 07:22 | NURSING ---
Patient right side wound vac displaced [place] notifed via phone and stated PA will address
--- NOTE | 2022-08-02 07:35 | WOUNDNOTE ---
The Prevena VAC to the right groin had been turned off d/t leak alarm. unable to get a seal around the scrotal area and the dressing was over the Aquacel AG dressing. had talked with MELISSA Ayala and orders were received to place a new Prevena to the right groin and change the Mepilex dressing to the right medial thigh/leg. Pt tolerated well. site clean with no sign of infection noted. was able to get the Prevena VAC sealed with no problems. the left groin Prevena was alarming low battery, so new batteries placed. no further issues noted. will reassess later today as well.
[2022-08-02] MEDS: Tamsulosin HCl 0.4 MG Capsule PO (07:59)
[2022-08-02] MEDS: Losartan Potassium 50 MG Tablet PO (08:00)
[2022-08-02] MEDS: Docusate Sodium 100 MG Capsule PO (08:01)
[2022-08-02] MEDS: Aspirin E.C. 81 MG Tablet PO (08:01)
[2022-08-02] MEDS: Clopidogrel Bisulfate 75 MG Tablet PO (08:02)
[2022-08-02] MEDS: Bisacodyl 10 MG Suppository RC (08:02)
[2022-08-02] MEDS: hydroCHLOROthiazide 12.5mg 12.5 MG PO (08:02)
[2022-08-02] MEDS: Heparin Injection (Vial) 5,000 UNIT/ML VIAL 5000 UNIT SC ×2 (08:02→23:28)
[2022-08-02] MEDS: Cilostazol 50 MG Tablet PO (08:03)
[2022-08-02] MEDS: Potassium Chloride Oral Tablet 20 MEQ 40 MEQ PO (08:10)
--- NOTE | 2022-08-02 11:15 | PN.HOSP_ITS ---
Subjective Subjective Doing well, no issues overnight. No further episodes of hematemesis. Still little short of breath requiring 6 L nasal cannula Objective Data Objective Data Vital Signs: Vital Signs Temp Pulse Resp BP Pulse Ox O2 Del Method O2 Flow Rate 97.3 F L 94 16 126/62 H 94 Nasal Cannula 6 08/02/22 09:24 08/02/22 09:24 08/02/22 09:24 08/02/22 09:24 08/02/22 09:24 08/02/22 09:24 08/02/22 09:24 Oxygen Flow Rate (L/min) [ 2 AMBULATING with Oxygen #1] Oxygen Flow Rate (L/min) [At 2 REST with Oxygen] Oxygen Flow Rate (L/min) 6 Oxygen Delivery Method Nasal Cannula Weight: 113 lb 8.609 oz Body Mass Index (BMI) 19.5 Intake & Output: Intake and Output for Last 24 Hours 08/01/22 08/02/22 08/03/22 03:59 03:59 03:59 Intake Total 125.45 / 125.45 1204.55 / 1204.55 110 / 110 Output Total 1470 / 1470 1500 / 1500 400 / 400 Balance -1344.55 / -1344.55 -295.45 / -295.45 -290 / -290 Lab / Micro Data Result Diagrams: 08/02/22 06:00 08/02/22 06:00 Labs: Laboratory Results - last 24 hr 08/01/22 14:25: Hgb 7.4 L, Hct 22.6 L 08/01/22 14:25: B-Natriuretic Peptide 97.6 08/01/22 16:15: Blood Type O POSITIVE, Antibody Screen NEGATIVE, Crossmatch See Detail 08/01/22 22:37: Hgb 8.1 L, Hct 24.2 L 08/02/22 06:00: WBC 8.5, RBC 2.79 L, Hgb 8.3 L, Hct 25.5 L, MCV 91.4, MCH 29.7, MCHC 32.5, RDW Std Deviation 47.8 H, RDW Coeff of Barbara 14.3, Plt Count 154, MPV 10.9, Immature Gran % (Auto) 0.500, Neut % (Auto) 78.4 H, Lymph % (Auto) 11.3 L, [place] % (Auto) 8.7, Eos % (Auto) 0.9, Baso % (Auto) 0.2, Absolute Neuts (auto) 6.7, Absolute Lymphs (auto) 0.96, Nucleated RBC % 0 08/02/22 06:00: Sodium 139, Potassium 3.4 L, Chloride 102, Carbon Dioxide 27.0, Anion Gap 10, BUN 23 H, Creatinine 0.94, Estim Creat Clear Calc 51.74, Est GFR (MDRD) Af Amer 101, Est GFR (MDRD) Non-Af 83, BUN/Creatinine Ratio 24.3 H, Glucose 82, Calcium 8.5 Micro: Microbiology 08/01/22 20:50 Mucosa - Nasopharyngeal Respiratory Panel (PCR) - Final 08/01/22 20:50 Nasal Secretion SARS-CoV-2 & FLU Antigen (Rapid) - Final Radiography Diagnostic Testing: Radiology Impression Chest X-Ray 08/01/22 16:05 IMPRESSION: Interstitial opacities which may represent scar or edema. There is no focal consolidation. Electronically Signed: Wolfgang Barnes MD at 16:24 EDT , Physical Exam Narrative General: Alert, Oriented x3, Cooperative, No apparent distress HEENT: Atraumatic, PERRLA, EOMI, Normocephalic Oral: Moist Mucosa Neck: Supple, No JVD Lungs: Diminished, Normal air movement, No rhonchi, No wheeze, No rales slight crackles in right base Cardiovascular: Regular rate, Regular Rhythm, Normal S1, Normal S2, No murmurs Abdomen: Soft, Non Tender, Non-Distended, No Hepato-splenomegaly Extremities: No edema, Capillary Refill Less than 3 Seconds Skin: No rashes, No breakdown Musculoskeletal: No Tenderness to Palpation of Joints or Extremities Neurological: Cranial nerves II-XII grossly intact, Motor Exam 5/5 strength throughout, Sensory exam intact to light touch and pain Psych/Mental Status: Normal Affect, Appropriate Assessment & Plan Assessment/Plan (1) Atherosclerosis of lower extremity with claudication: PLAN: Plan 1. Acute hypoxic respiratory insufficiency secondary to aspiration versus COPD exacerbation ? Given the history of multiple rounds of emesis will cover for aspiration with Unasyn ? Respiratory panel and COVID are negative ? BMP is unremarkable ? No obvious signs of wheezing, will continue with inhalers but hold off on gianni roids 2. Postoperative anemia ?Given his possibility for hematemesis, will consult GI ? Continue with PPI ? Given the fact that he just had stents placed for peripheral vascular disease, will continue with aspirin and Plavix at this time but will have a low threshold for stopping if his hemoglobin continues to drop, currently at 8.3 3. Peripheral vascular disease status post intervention 07/29/2022/HTN/HLD ? His blood pressures stable ? Continue with losartan which was decreased in dose from 100 mg to 50 mg daily, and will continue with Hydrocort 5 side but will hold his Cardizem ? Continue with aspirin, Plavix, statin, cilostazol DVT: Heparin Charges/Coding Visit Charges Inpatient E&M: 90808 Subs Hosp L2
--- NOTE | 2022-08-02 12:20 | NURSING ---
This RN taking over care of pt at this time.
[2022-08-02] MEDS: 0.9% Saline Lock 10 ML Syringe IV ×2 (14:07→23:32)
[2022-08-02 14:28] LABS: Hemoglobin 8.6 g/dL (13.0-16.5)
[2022-08-02] MEDS: guaiFENesin 600 MG Tablet PO ×2 (15:20→23:24)
--- NOTE | 2022-08-02 16:55 | PCM.PN.SRG ---
Subjective Subjective Patient required 6-8 lpm O2 last night. Reports that at home he usually sleeps sitting up in a recliner, and here has been sleeping flat the last couple of nights. This morning he coughed up some mucus and has been sitting upright and able to maintain on 3 lpm. He reports that he does not feel short of breath at rest, but does a bit with activity. He was not on any supplemental oxygen at home prior to this, and did not have any inhalers he used regularly. His hgb was 8.3 this morning and 8.6 this afternoon, up from 7.4 yesterday after receiving 1 unit PRBC yesterday evening. He has not had any more episodes of vomiting, his no longer having heartburn. He is on IV Protonix and carafate before meals. GI consult has been placed. Stool occult test has been ordered but not yet collected. There was some trouble with his Provena wound vacs overnight, this was corrected this morning and both are now functioning well. He reports his pain is well controlled. He does feel a bit weak still, and is interested in arranging home health for continued PT at home. Objective Data Objective Data Vital Signs: Vital Signs Temp Pulse Resp BP Pulse Ox O2 Del Method O2 Flow Rate 98.6 F 92 17 116/58 L 94 Nasal Cannula 3 08/02/22 15:20 08/02/22 15:20 08/02/22 15:20 08/02/22 15:20 08/02/22 15:20 08/02/22 15:20 08/02/22 15:20 Oxygen Flow Rate (L/min) [ 2 AMBULATING with Oxygen #1] Oxygen Flow Rate (L/min) [At 2 REST with Oxygen] Oxygen Flow Rate (L/min) 3 Oxygen Delivery Method Nasal Cannula Weight: 113 lb 8.609 oz Body Mass Index (BMI) 19.5 Intake & Output: Intake and Output for Last 24 Hours 07/31/22 08/01/22 08/02/22 23:59 23:59 23:59 Intake Total 175.45 / 175.45 1204.55 / 1204.55 222 / 222 Output Total 1370 / 1370 1600 / 1600 400 / 400 Balance -1194.55 / -1194.55 -395.45 / -395.45 -178 / -178 Lab / Micro Data Result Diagrams: 08/02/22 14:00 08/02/22 06:00 Labs: Laboratory Results - last 24 hr 08/01/22 14:25: B-Natriuretic Peptide 97.6 08/01/22 16:15: Blood Type O POSITIVE, Antibody Screen NEGATIVE, Crossmatch See Detail 08/01/22 22:37: Hgb 8.1 L, Hct 24.2 L 08/02/22 06:00: WBC 8.5, RBC 2.79 L, Hgb 8.3 L, Hct 25.5 L, MCV 91.4, MCH 29.7, MCHC 32.5, RDW Std Deviation 47.8 H, RDW Coeff of [place] 14.3, Plt Count 154, MPV 10.9, Immature Gran % (Auto) 0.500, Neut % (Auto) 78.4 H, Lymph % (Auto) 11.3 L, [place] % (Auto) 8.7, Eos % (Auto) 0.9, Baso % (Auto) 0.2, Absolute Neuts (auto) 6.7, Absolute Lymphs (auto) 0.96, Nucleated RBC % 0 08/02/22 06:00: Sodium 139, Potassium 3.4 L, Chloride 102, Carbon Dioxide 27.0, Anion Gap 10, BUN 23 H, Creatinine 0.94, Estim Creat Clear Calc 51.74, Est GFR (MDRD) Af Amer 101, Est GFR (MDRD) Non-Af 83, BUN/Creatinine Ratio 24.3 H, Glucose 82, Calcium 8.5 08/02/22 14:00: Hgb 8.6 L Micro: Microbiology 08/01/22 20:50 Mucosa - Nasopharyngeal Respiratory Panel (PCR) - Final 08/01/22 20:50 Nasal Secretion SARS-CoV-2 & FLU Antigen (Rapid) - Final Physical Exam Const alert, oriented x3 and no apparent distress General Appearance: cooperative and comfortable HEENT normocephalic, hearing grossly normal bilaterally and external ears normal Head and Scalp: normocephalic and atraumatic Nose: external nose normal Eyes EOMs intact bilaterally General Eye: normal appearance of both eyes Neck General: normal visual inspection and trachea midline Resp Effort and Inspection: able to speak in complete sentences and symmetric chest movement; Negative for labored, stridor, retractions, uses accessory muscles or audible wheezes Auscultation: diminished lung sounds Cardio regular rate, regular rhythm and no murmurs Peripheral Pulses: brachial pulses present and radial pulses present Extremity Extremity Narrative: Feet pink and warm bilaterally. DP/PT nonpalpable, but with good doppler signals bilaterally. Normal capillary refill. Mild bilateral lower extremity edema Fem-fem bypass with strong, palpable pulse Did remove and replace right leg dressings today. Incisions all with wound edges well-approximated, skin glue intact, no swelling/erythema/bruising/drainage. Neuro oriented x3, CN's II-XII intact bilaterally, moves all extremities, no focal motor deficits and no sensory deficits noted Assessment & Plan Assessment/Plan (1) Atherosclerosis of [place] arteries of extremities with rest pain, left leg: PLAN: Plan He is POD#4 right to left fem-fem, left fem-pop bypass, right iliac angioplasty. Doppler signals are stable, positive fem-fem pulse, feet remain warm and pink. His pain is well managed. He is doing well from vascular perspective. Appreciate hospitalist input and management. He was hypotensive overnight, but after holding cardizem and decreasing losartan this improved. Blood pressures have been stable today Patient still requiring 3 lpm O2 at rest, more overnight and with activity. Scheduled nebs. Was reported that he seemed to be congested this morning and was bringing up some mucus, did order mucinex to see if this would help. BNP yesterday was within normal limits, CXR showed no focal consolidation. Pulmonary is consulted, will appreciate their recommendations. His hgb improved after transfusion yesterday from 7.4 to 8.1. Has been stable today, most recently 8.6. Will repeat in the morning. No further episodes of emesis. Stool occult test is ordered. Will continue PPI drip and carafate for now. GI is consulted, will appreciate their input. Advance diet as tolerated, unless otherwise instructed by GI. [facility] is being arranged by [facility]. Will await pulmonary and GI recommendations for discharge planning.
--- NOTE | 2022-08-02 17:29 | CON.PCM.CC_ITS ---
Assessment & Plan Assessment/Plan (1) COPD exacerbation: PLAN: one dose of solumedrol IV to minimize impact on wound healing while allowi ng improvement in AE COPD. start Anoro (LAMA/LABA conbimation) inhaler today, then daily outpatient PFTs and pulmonary followup smoking cessation; patient is trying to quit and decreased to 6 cigarettes per day. Abrupt decrease in smoking has been associated with increased respiratory secretions (the usual advice is to quit 2 weeks prior to surgery to avoid this). Duoneb scheduled q6h while in hospital (2) Chronic bullous emphysema: PLAN: stable. Disease pathophysiology and treatment explained to patient and his family, and role of inhalers and continued smoking. (3) Acute respiratory failure with hypoxemia: PLAN: Likely due to increased secretions and untreated COPD +/- IV fluids - titrate FiO2 to keep SpO2 >92% - anoro daily, duoneb q6h, solumedrol x 1 - additional recommendations depending on clinical response - avoid fluid overload - weigh patient daily, give empiric lasix IV if weight increased >2 lbs. (4) Incidental pulmonary nodule, less than or equal to 3mm: PLAN: he will need continued follow up with a low dose ct chest in Jun 2023. 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 Grubbs. HPI Consult Data Date of Consult: 08/02/22 HPI Narrative Reason for Consultation: COPD, hypoxia. HPI Narrative: RYAN ESCOBAR, is a 71 M who is postop from extensive revascularization surgery today by Dr. Grubbs. His primary physician is Dr. Chaidez.. he is doing well, but postop was noted to need 9 L/min of oxygen. He has undiagnosed COPD, is a 2 to 3 pack/day smoker for 60 years, has never quit for any length of time. 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 He cut down to 6 cigarettes a day before surgery. He has never used inhalers except occasional albuterol, he has not been hospitalized for COPD, or been in the emergency room or physician visit for exacerbations. Never had pulmonary function test and has no knowledge of an abnormal chest x-ray. His exercise tolerance is limited by his vascular insufficiency, he does not stop because of shortness of breath. Prior to admission, his respiratory symptoms included minimal wheezing, he only coughs and produces sputum after his inhaler. He has never been on oxygen. He denies any chest pain leg edema dizziness with exertion chest pain, pleurisy, and has never had COVID. He has received vaccinations for COVID did not get his flu shot this year but does not remember having influenza except as a child. Past pulmonary history includes rib fractures, postnasal drip, occasional foot swelling, but denies prior pneumonia, thorax, chest trauma, tuberculosis exposure, severe infection, DVT, pulmonary embolism, ear infections or sinus infections, pulmonary hypertension, dizziness and falls, or swallowing difficulty. Past medical history is reviewed below, family and social history reviewed, medications and allergies reviewed. Ciprofloxacin causes nausea. [facility] Medical History (Updated 08/02/22 @ 17:[address] Huy Gonzalez MD) Acute respiratory failure with hypoxemia Alcohol abuse Back pain Chronic bullous emphysema COPD (chronic obstructive pulmonary disease) COPD exacerbation Edema Hard of hearing Head injury Heartburn High cholesterol History of stress test HTN (hypertension) Hypoglycemia Incidental pulmonary nodule, less than or equal to 3mm Leg cramps Leg pain Neuropathy Osteoporosis PAOD (peripheral arterial occlusive disease) Passed out Peripheral arterial occlusive disease Shortness of breath Smoker Wears eyeglasses Home Medications diltiazem HCl 180 mg capsule,extended release 24 hr 180 mg PO DAILY BP 06/20/14 [History Last Taken 07/29/22] valsartan 320 mg-hydrochlorothiazide 12.5 mg tablet 320 mg PO DAILY BP 06/20/14 [History Last Taken 01/18/20] glucose 4 gram chewable tablet 4 g PO DAILY sugar 01/18/20 [History Last Taken 01/18/20] aspirin 81 mg tablet,delayed release (Adult Low Dose Aspirin) 81 mg PO DAILY SUPPLEMENT 05/02/22 [History Last Taken 07/28/22] cilostazol 50 mg tablet 50 mg PO DAILY BONE 07/15/22 [History Last Taken Unknown] rosuvastatin 10 mg tablet (Crestor) 10 mg PO QHS CHOLESTEROL 07/15/22 [History Last Taken Unknown] Allergy/AdvReac Type Severity Reaction Status Date / Time ciprofloxacin HCl Allergy Severe Nausea [facility] Family History Father Hypertension Cancer lung Other Osteoporosis Surgical History (Updated 07/15/22 @ 13:36 by Christy Carbajal) Hx of colonoscopy Hx of left cataract extraction Hx of right cataract extraction Status post peripheral artery angioplasty Social History Smoking Status: Current every day smoker tobacco type: cigarettes ROS Constitutional Constitutional: Denies body ache(s), fatigue, headache(s) or night sweats ENT HEENT: Reports nasal congestion; Denies dizziness, epistaxis or headache(s) Cardiovascular Cardiovascular: Reports claudication and dyspnea; Denies chest pain or dizziness Respiratory/Chest Respiratory/Chest: Reports chest tightness and dyspnea; Denies cough, hemoptysis, pain on inspiration or wheezing Gastrointestinal Gastrointestinal: Denies abdominal pain Genitourinary Genitourinary: Denies flank pain or hematuria Musculoskeletal Musculoskeletal: Denies arthralgias Integumentary Integumentary: Denies lesions Neurologic Neurologic: Denies abnormal speech or confusion Psychiatric Psychiatric: Denies anxiety or depression Endocrine Endocrinology: Denies fatigue Hematologic/Lymphatic Hematologic/Lymphatic: Denies easy bleeding Physical Exam Narrative Well-developed slender gentleman on 4 L of oxygen, in no respiratory distress, sitting up in bed reading with newspaper with his glasses on. and daughter were at bedside. HEENT normocephalic atraumatic eyes extraocular's are intact mucous membranes are moist, no thrush Neck is supple with no JVD thyromegaly or mass Lungs are hyperinflated with increased AP diameter no use of accessory muscles except when sitting up in bed. Decreased diaphragmatic excursion, distant quiet breath sounds, no rhonchi or crackles, mild end expiratory wheeze at the right lung base at the posterior axillary line otherwise clear. No pleural rubs. Heart normal S1-S2 regular rhythm with no murmurs rubs or gallops, pulses are 2+ upper extremities Lower extremities have multiple dressings in place, not disturbed. The feet and ankles are warm and well-perfused with no edema. SCDs in place. Neurologic alert oriented x3 pleasant and appropriate. Grossly nonfocal. Medical Records Data Attestation: I reviewed the patient's medical records Lab / Micro Data Attestation: I reviewed the patient's lab results. Lab results narrative: SPO2 90% on 9 L postop, improved to 95% on 4 L. Result Diagrams: 08/02/22 14:00 08/02/22 06:00 Labs: Laboratory Results - last 24 hr 08/01/22 14:25: B-Natriuretic Peptide 97.6 08/01/22 16:15: Blood Type O POSITIVE, Antibody Screen NEGATIVE, Crossmatch See Detail 08/01/22 22:37: Hgb 8.1 L, Hct 24.2 L 08/02/22 06:00: WBC 8.5, RBC 2.79 L, Hgb 8.3 L, Hct 25.5 L, MCV 91.4, MCH 29.7, MCHC 32.5, RDW Std Deviation 47.8 H, RDW Coeff of Barbara 14.3, Plt Count 154, MPV 10.9, Immature Gran % (Auto) 0.500, Neut % (Auto) 78.4 H, Lymph % (Auto) 11.3 L, [place] % (Auto) 8.7, Eos % (Auto) 0.9, Baso % (Auto) 0.2, Absolute Neuts (auto) 6.7, Absolute Lymphs (auto) 0.96, Nucleated RBC % 0 08/02/22 06:00: Sodium 139, Potassium 3.4 L, Chloride 102, Carbon Dioxide 27.0, Anion Gap 10, BUN 23 H, Creatinine 0.94, Estim Creat Clear Calc 51.74, Est GFR (MDRD) Af Amer 101, Est GFR (MDRD) Non-Af 83, BUN/Creatinine Ratio 24.3 H, Glucose 82, Calcium 8.5 08/02/22 14:00: Hgb 8.6 L Micro: Microbiology 08/01/22 20:50 Mucosa - Nasopharyngeal Respiratory Panel (PCR) - Final 08/01/22 20:50 Nasal Secretion SARS-CoV-2 & FLU Antigen (Rapid) - Final Negative EXAM:? XR CHEST, 1 VIEW CLINICAL INDICATION:? hypoxia TECHNIQUE:? Frontal view of the chest.? This report was created using Partly report [employer] technology. COMPARISON:? 01/18/2020 FINDINGS: LUNGS AND PLEURAL SPACES:? There are interstitial opacities bilaterally which may represent scar or mild edema.? There is blunting of the left costophrenic angle which may represent pleural effusion or scarring.? No pneumothorax. HEART:? Unremarkable.? Cardiac silhouette not enlarged. MEDIASTINUM:? Central airways and mediastinal contour are unremarkable. BONES/JOINTS:? There is a scoliotic deformity of the thoracic spine. SOFT TISSUES:? Unremarkable. RAD/Chest 1 View (Portable) IMPRESSION: Interstitial opacities which may represent scar or edema. There is no focal consolidation. Electronically Signed: Wolfgang Barnes MD at 16:[address]/Low Dose CT Lung Screening IMPRESSION:? Noncalcified nodules one within the left base which was seen on a previous CTA of the abdomen and pelvis dated 05/09/2022 is stable and a second pleural-based nodule right lower lobe which is also stable.? There are severe underlying emphysematous changes with pulmonary hyperinflation. Lung-RADS score: 2 - Benign Appearance or Behavior.? Recommend continued annual screening with low-dose CT (LDCT) in 12 months. ? Electronically Signed: Wolfgang Barnes MD at 19:27 EST Charges/Coding Visit Charges Inpatient E&M: 42036 Init Hosp L3
[2022-08-02] MEDS: Umeclidinium Brm/Vilanterol 62.5-25 mcg Inh 1 PUFF INHALATION (23:20)
[2022-08-02] MEDS: Atorvastatin Calcium 20 MG Tablet PO (23:23)
[2022-08-03] VITALS (7 sets, daily range): BP systolic 84–133; BP diastolic 51–66; PULSE 95; RESP 14; TEMP 36.3–36.8; O2SAT 84–95; BMI 19.7
[2022-08-03] MEDS: Acetaminophen 500 MG Tablet 1000 MG PO ×2 (00:18→06:04)
[2022-08-03] MEDS: Sucralfate 1 GM Tablet PO ×2 (06:04→11:28)
[2022-08-03 08:28] LABS: Absolute Lymphocyte Count 1.04 X10^3/uL (0.83-4.51); Absolute Neutrophil Count 4.8 X10^3/uL (2.0-7.7); Basophil# 0.02 X10^3/uL; Basophil% 0.3 % (0-1); Eosinophil# 0.24 X10^3/uL; Eosinophils% 3.5 % (0-5); Hematocrit 27.3 % (40-54); Hemoglobin 8.5 g/dL (13.0-16.5); Lymphocyte # 1.04 X10^3/ul (0.83-4.51); Lymphocyte % 15.2 % (19-41); Mean Corp Hgb Conc 31.1 g/dL (32-36); Mean Corpuscular Hgb 28.9 pg (27.0-32.0); Mean Corpuscular Volume 92.9 fL (80-94); Mean Platelet Vol. 10.3 fl (6.2-12.0); Monocyte# 0.72 X10^3/uL; Monocyte% 10.6 % (0-10); NRBC Flagged by Analyzer 0 % (0-5); Neutrophil # 4.76 X10^3/uL (2.7-7.7); Neutrophil % 69.8 % (47-70); Platelet Count 163 K/mm3 (150-450); RBC Distribution Width CV 14.2 % (11.6-14.6); RBC Distribution Width SD 47.9 fl (35.1-43.9); Red Blood Count 2.94 M/mm3 (4.6-6.2); White Blood Count 6.8 K/mm3 (4.4-11.0)
--- NOTE | 2022-08-03 08:36 | CPS ---
PATIENT WEANED TO 1 LPM.
--- NOTE | 2022-08-03 08:37 | CPS ---
PATIENT INCREASED TO 2 LPM.
[2022-08-03 08:48] LABS: Anion Gap 10 (5-15); BUN 18 mg/dL (7-18); BUN/Creat Ratio 20.6 RATIO (10-20); Calcium,Total 8.2 mg/dL (8.5-10.1); Chloride 102 mmol/L (98-107); Creatinine, Serum 0.87 mg/dL (0.70-1.30); EST Glomerular Filtration Rate 91 mL/min (>60); Est Glom Filt Rate - Afr Amer 110 mL/min (>60); Estimated Creatinine Clearance 56.56 ml/min; Glucose 55 mg/dL (74-106); Potassium 3.6 mmol/L (3.5-5.1); Sodium Level 137 mmol/L (136-145)
[2022-08-03] MEDS: Umeclidinium Brm/Vilanterol 62.5-25 mcg Inh 1 PUFF INHALATION (09:29)
[2022-08-03] MEDS: guaiFENesin 600 MG Tablet PO (09:33)
[2022-08-03] MEDS: hydroCHLOROthiazide 12.5mg 12.5 MG PO (09:33)
[2022-08-03] MEDS: Losartan Potassium 50 MG Tablet PO (09:33)
[2022-08-03] MEDS: Heparin Injection (Vial) 5,000 UNIT/ML VIAL 5000 UNIT SC (09:34)
[2022-08-03] MEDS: Cilostazol 50 MG Tablet PO (09:34)
[2022-08-03] MEDS: Clopidogrel Bisulfate 75 MG Tablet PO (09:34)
[2022-08-03] MEDS: Tamsulosin HCl 0.4 MG Capsule PO (09:35)
[2022-08-03] MEDS: Aspirin E.C. 81 MG Tablet PO (09:35)
--- NOTE | 2022-08-03 11:19 | PN.SURG_ITS ---
Subjective Subjective Patient is feeling good this morning, he wants to be discharged. His family is at bedside. He reports he slept propped up last night. He did receive IV solumedrol x1 and started Anoro inhaler yesterday at pulmonary recommendation. Nursing reports he maintained >92% O2 saturation on 3 lpm overnight, much improved from previous nights. This morning he is at 95% on 2 lpm. His daughter reports that he is actually already scheduled for outpatient pulmonary function tests and f/u, though not until mid-late August. His hgb remains stable this morning at 8.5, he has not required any further transfusions since 1 unit PRBC on 08/01. His BPs have remained stable. He continues to void without issue. He has been tolerating diet without issue. He denies SOB, CP, palpitations, N/V, blood in the urine, blood in the stool, abdominal pain, new/worsening pain in his BLE. Objective Data Objective Data Vital Signs: Vital Signs Temp Pulse Resp BP Pulse Ox O2 Del Method O2 Flow Rate 98.3 F 95 14 125/66 H 95 Nasal Cannula 2 08/03/22 09:25 08/03/22 09:25 08/03/22 09:25 08/03/22 09:25 08/03/22 09:25 08/03/22 09:25 08/03/22 09:25 Oxygen Flow Rate (L/min) [ 2 AMBULATING with Oxygen #1] Oxygen Flow Rate (L/min) [At 2 REST with Oxygen] Oxygen Flow Rate (L/min) 2 Oxygen Delivery Method Nasal Cannula Weight: 114 lb 13.773 oz Body Mass Index (BMI) 19.7 Intake & Output: Intake and Output for Last 24 Hours 08/01/22 08/02/22 08/03/22 23:59 23:59 23:59 Intake Total 1204.55 / 1204.55 862 / 862 684 / 684 Output Total 1600 / 1600 400 / 400 200 / 200 Balance -395.45 / -395.45 462 / 462 484 / 484 Lab / Micro Data Result Diagrams: 08/03/22 08:04 08/03/22 08:04 Labs: Laboratory Results - last 24 hr 08/02/22 14:00: Hgb 8.6 L 08/03/22 08:04: Sodium 137, Potassium 3.6, Chloride 102, Carbon Dioxide 25.0, Anion Gap 10, BUN 18, Creatinine 0.87, Estim Creat Clear Calc 56.56, Est GFR (MDRD) Af Amer 110, Est GFR (MDRD) Non-Af 91, BUN/Creatinine Ratio 20.6 H, Glu cose 55 L, Calcium 8.2 L 08/03/22 08:04: WBC 6.8, RBC 2.94 L, Hgb 8.5 L, Hct 27.3 L, MCV 92.9, MCH 28.9, MCHC 31.1 L, RDW Std Deviation 47.9 H, RDW Coeff of Barbara 14.2, Plt Count 163, MPV 10.3, Immature Gran % (Auto) 0.600, Neut % (Auto) 69.8, Lymph % (Auto) 15.2 L, [place] % (Auto) 10.6 H, Eos % (Auto) 3.5, Baso % (Auto) 0.3, Absolute Neuts (auto) 4.8, Absolute Lymphs (auto) 1.04, Nucleated RBC % 0 Micro: Microbiology 08/01/22 20:50 Mucosa - Nasopharyngeal Respiratory Panel (PCR) - Final 08/01/22 20:50 Nasal Secretion SARS-CoV-2 & FLU Antigen (Rapid) - Final Physical Exam Const alert, oriented x3 and no apparent distress General Appearance: cooperative and comfortable HEENT normocephalic, head/scalp atraumatic, hearing grossly normal bilaterally and external ears normal Nose: external nose normal Eyes EOMs intact bilaterally General Eye: normal appearance of both eyes Neck General: normal visual inspection and trachea midline Resp normal respiratory effort and no use of accessory muscles Effort and Inspection: Negative for labored, stridor or audible wheezes Auscultation: diminished lung sounds Cardio regular rate and regular rhythm Extremity normal to inspection, no clubbing, cyanosis or edema and no calf tenderness Extremity Narrative: Feet pink and warm bilaterally. DP/PT nonpalpable, but with good doppler signals bilaterally. Normal capillary refill. Fem-fem bypass with strong, palpable pulse. Skin Skin Narrative: RLE incision sites with dressings C/D/I. Bilateral groin incision sites with provena vac dressings in place, functioning appropriately. LLE incision site with surgical glue intact. No erythema, swelling, hematoma, bleeding, drainage, foul odor noted. Neuro oriented x3, CN's II-XII intact bilaterally, moves all extremities, no focal motor deficits and no sensory deficits noted Speech: speech normal Psych mental status grossly normal Appearance: grossly normal Attitude: calm and engaged Activity / Motor Behavior: appropriate eye contact Speech: normal speech Mood & Affect: euthymic mood Thought Process: normal thought process Thought Content: normal thought content Attention / Concentration: attention grossly intact Memory / Cognition: memory grossly intact Insight: insight good Judgement: judgement good Assessment & Plan Assessment/Plan (1) Atherosclerosis of [place] arteries of extremities with rest pain, left leg: PLAN: Plan Patient is stable for discharge from vascular perspective. He continues to have good, improved perfusion to lower extremities, no rest pain, post-op pain well managed, incision sites all with satisfactory appearance. He is tolerating diet and voiding without issue. Will continue ASA, plavix, statin daily. Patient's O2 requirement has satisfactorily decreased from initial postop requirements and has been stable overnight and throughout the day. Discussed with pulmonary and agree that patient is stable for discharge home with home O2 at 2 lpm, Anoro inhaler daily, Albuterol inhaler PRN. Discussed with patient and daughter the importance of adherence to recommended pharmacologic and O2 therapy and importance of smoking cessation. They acknowledged understanding. They also understand the importance of close outpatient f/u with pulmonary. His BP has been stable on reduced dose losartan and cardizem held. Will have patient continue this outpatient and follow-up with PCP for further management. Patient's H&H have been stable for the last 2 days, he has required no further transfusions. He has had no further issues with vomiting and no signs of bleeding. As patient is stable and ready for d/c will plan to d/c with PO protonix and carafate, follow hgb closely outpatient, and arrange outpatient f/u. Hospitalist agrees stable for discharge. Will plan for this afternoon.
--- NOTE | 2022-08-03 11:46 | PN_ITS ---
Subjective Subjective Patient seen and examined. Daughter was by his bedside. He had no complaints and felt well. He felt his breathing had improved. He denied any coughing, chest pain, palpitations, dizziness, nausea or vomiting. Review of systems otherwise negative. Objective Data Objective Data Vital Signs: Vital Signs Temp Pulse Resp BP Pulse Ox O2 Del Method O2 Flow Rate 98.3 F 95 14 125/66 H 95 Nasal Cannula 2 08/03/22 09:25 08/03/22 09:25 08/03/22 09:25 08/03/22 09:25 08/03/22 09:25 08/03/22 09:25 08/03/22 09:25 Oxygen Flow Rate (L/min) [ 2 AMBULATING with Oxygen #1] Oxygen Flow Rate (L/min) [At 2 REST with Oxygen] Oxygen Flow Rate (L/min) 2 Oxygen Delivery Method Nasal Cannula Weight: 114 lb 13.773 oz Body Mass Index (BMI) 19.7 Intake & Output: Intake and Output for Last 24 Hours 08/01/22 08/02/22 08/03/22 23:59 23:59 23:59 Intake Total 1204.55 / 1204.55 862 / 862 684 / 684 Output Total 1600 / 1600 400 / 400 200 / 200 Balance -395.45 / -395.45 462 / 462 484 / 484 Lab / Micro Data Result Diagrams: 08/03/22 08:04 08/03/22 08:04 Labs: Laboratory Results - last 24 hr 08/02/22 14:00: Hgb 8.6 L 08/03/22 08:04: Sodium 137, Potassium 3.6, Chloride 102, Carbon Dioxide 25.0, Anion Gap 10, BUN 18, Creatinine 0.87, Estim Creat Clear Calc 56.56, Est GFR (MDRD) Af Amer 110, Est GFR (MDRD) Non-Af 91, BUN/Creatinine Ratio 20.6 H, Glucose 55 L, Calcium 8.2 L 08/03/22 08:04: WBC 6.8, RBC 2.94 L, Hgb 8.5 L, Hct 27.3 L, MCV 92.9, MCH 28.9, MCHC 31.1 L, RDW Std Deviation 47.9 H, RDW Coeff of Barbara 14.2, Plt Count 163, MPV 10.3, Immature Gran % (Auto) 0.600, Neut % (Auto) 69.8, Lymph % (Auto) 15.2 L, [place] % (Auto) 10.6 H, Eos % (Auto) 3.5, Baso % (Auto) 0.3, Absolute Neuts (auto) 4.8, Absolute Lymphs (auto) 1.04, Nucleated RBC % 0 Micro: Microbiology 08/01/22 20:50 Mucosa - Nasopharyngeal Respiratory Panel (PCR) - Final 08/01/22 20:50 Nasal Secretion SARS-CoV-2 & FLU Antigen (Rapid) - Final Physical Exam Const oriented x3 and no apparent distress General Appearance: cooperative HEENT head/scalp atraumatic and moist oral mucous membranes Eyes PERRL and EOMs intact bilaterally Neck supple and no JVD Lymph Lymphatic: no lymphadenopathy noted and no lymphedema noted Resp Resp Narrative: minimally diminished breath sounds bibasally, no wheezes or crackles. On 2L of oxygen by nasal canula Cardio regular rate, regular rhythm, S1 normal heart sound, S2 normal heart sound and no murmurs GI normal to inspection, nondistended, normoactive bowel sounds, soft to palpation and non-tender Extremity normal capillary refill, no clubbing, cyanosis or edema and no calf tenderness Extremity Narrative: intact dressing in right groin Skin General Skin Exam: no breakdown Neuro CN's II-XII intact bilaterally and no focal motor deficits Assessment & Plan Assessment/Plan (1) COPD exacerbation: (2) Acute respiratory failure with hypoxemia: PLAN: Plan #Acute post op hypoxic respiratory failure due to probable aspiration pneumonitis and COPD exacerbation * Now down to 2 L of oxygen. Feels his breathing has improved markedly. He required up to 9 L of oxygen after surgery. * Respiratory panel and COVID test that were negative. * Pulmonology on board. Started on Anoro per pulm. On breathing treatments with bronchodilators. * Titrate oxygen to maintain saturation above 90%. * Consult to quit smoking. * #Acute COPD exacerbation: Known to have chronic bullous emphysema. Pulmonology on board. Management as above. #Lung nodule: This was an incidental finding on imaging. We will have to follow-up with pulmonology and PCP for further imaging as needed. #Postop anemia * On PPI. On aspirin and Plavix. Hemoglobin has remained stable. * Hb today is 8.5. GI was consulted during this admission, yet to see. * H has remained stable, this may have been due to blood loss from surgery. * ptient can follow up with GI on outpatient basis as needed. #Peripheral vascular disease * S/p right to left fem-fem, femoropopliteal bypass and right iliac angioplasty * Management as per vascular surgery. #Hypertension: On losartan. Losartan was decreased to 50 mg daily. Cardizem on hold. #Hyperlipidemia: On statin and cilostazol DVT prophylaxis:as per primary service Disposition: patient stable for discharge from hospitalist standpoint. Charges/Coding Visit Charges Inpatient E&M: 83071 Subs Hosp L2
--- NOTE | 2022-08-03 12:33 | DS.PCM_ITS ---
Providers Date of Admission: 07/29/22 Date of Discharge: 08/03/22 Primary Care Physician: Dr. Dom Chaidez MD Consultations 08/01/22 15:46 Consult: Market Research Coordinator / Pulmonary Medicine Routine Consulting Provider: Huy Gonzalez Reason for Consult: hypoxia post op, not fully diagnosed COPD EMERGENT Consult: No MD Notified: Yes Date Notified: 08/01/22 Time Notified: 15:47 Method of Notification: Text 08/01/22 19:58 Consult: Gastroenterology Routine Consulting Provider: [facility] Reason for Consult: post op anemia, ?hematemasis ystdy, none today but requiring PRBC EMERGENT Consult: No Notified: Yes Date Notified: 08/02/22 Time Notified: 08:32 Method of Notification: phone Reason For Visit: RT TO LT FEM FEM BYPAP, POSS LT FEM POP Diagnosis Discharge Diagnosis (1) 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, left leg: Status: Chronic Code(s): I70.222 - 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, left leg Medications at Discharge Home Medications diltiazem HCl 180 mg capsule,extended release 24 hr 180 mg PO DAILY BP 06/20/14 glucose 4 gram chewable tablet 4 g PO DAILY sugar 01/18/20 aspirin 81 mg tablet,delayed release (Adult Low Dose Aspirin) 81 mg PO DAILY SUPPLEMENT 05/02/22 cilostazol 50 mg tablet 50 mg PO DAILY BONE 07/15/22 rosuvastatin 10 mg tablet (Crestor) 10 mg PO QHS CHOLESTEROL 07/15/22 clopidogrel 75 mg tablet 75 mg PO DAILY 90 days #90 tabs 08/03/22 docusate sodium 100 mg capsule 100 mg PO DAILY 30 days #30 caps 08/03/22 guaifenesin 600 mg tablet, extended release 12 hr (Mucus Relief ER) 600 mg PO BID 30 days #60 tabs 08/03/22 hydrochlorothiazide 12.5 mg capsule 12.5 mg PO DAILY #30 caps 08/03/22 losartan 50 mg tablet 50 mg PO DAILY #30 tabs 08/03/22 oxycodone 5 mg tablet 5 mg PO TID 3 days #9 tabs 08/03/22 pantoprazole 40 mg tablet,delayed release 40 mg PO DAILY #30 tabs 08/03/22 sucralfate 1 gram tablet 1 g PO 1HR_ACHS 30 days #90 tabs 08/03/22 tamsulosin 0.4 mg capsule 0.4 mg PO DAILY 30 days #30 caps 08/03/22 umeclidinium 62.5 mcg-vilanterol 25 mcg/actuation powdr for inhalation (Anoro Ellipta) 1 inh inhalation DAILY #30 days 08/03/22 Hospital Course Operations - (R to L fem-fem with cadaver, L fem-pop bypass with GSV graft, R common/ext iliac stenting, bilat sartorius flaps) Summary of Care Provided Hospital Course: Patient underwent R to L fem-fem with cadaver, L fem-pop bypass with GSV graft, R common/ext iliac stenting, bilat sartorius flaps by Dr. Grubbs on 07/29/22. The procedure was without significant complications and patient tolerated it well. Bilateral groin incision sites were closed with absorbable sutures and skin glue, covered with Provena vac dressings. RLE and LLE incision sites closed with absorbable sutures and silver dressings. Patient did experience some hypotension post-operatively. Losartan was decreased to 50mg daily and cardizem was held. His blood pressures improved and have remained in good control for the remainder of his hospitalization. Do recommend that patient check his BP daily at home and that he follow-up with his PCP for continued management. On night of 07/31 patient did experience nausea with several episodes of emesis. Nursing reported that some of the emesis had coffee-ground appearance. Patient was started on protonix and carafate. His hgb was noted to have dropped from 8.5 to 7.4 the following day and 1 unit PRBC was transfused. His hgb aaron to 8.1 following the transfusion and has been stable since. On day of discharge, hgb was 8.5. Patient had no further episodes of vomiting, denied any blood in the stool, urine, sputum. He has been tolerating his diet without issue. Plan to send him home on PO protonix and carafate. Will monitor his symptoms and hgb levels closely as an outpatient and coordinate GI f/u as indicated. Post-operatively, patient also experienced hypoxia, requiring up to 9 lpm supplemental oxygen. It was felt patient had underlying, undiagnosed COPD contributing to this. Pulmonary medicine was consulted. Patient was initiated on Anoro daily inhalers, albuterol PRN. He received IV solumedrol x1. He was able to be weaned down to 2 lpm while saturating >92%. He was felt to be stable for discharge on home oxygen at 2 lpm, Anoro inhaler daily, albuterol inhaler PRN. Plan is to obtain overnight oximetry, PFTs, and follow-up with pulmonary medicine as an outpatient for continued evaluation and management. Initially postoperatively, he had some difficulty voiding urine. He was started on tamsulosin for this and it resolved, he has been voiding without difficulty since POD#2. Regarding vascular surgery intervention, patient has recovered well and been stable. He has had improved perfusion with stable palpable pulse in the bypass and stable doppler signals in bilateral lower extremities. He has already noticed improvement in his pain with activity and has no pain at rest. His inci sions are well-healing to this point. He will go home with Provena vac dressings in place and these can be removed on Friday, or sooner as needed if they malfunction or seal cannot be maintained. He will continue with ASA and Plavix. He will follow-up in 2-3 weeks in clinic. On day of discharge, patient's oxygen saturationi stable with 2 lpm supplemental O2, he is tolerating diet, he is voiding without difficulty, he is ambulating well, his pain is well controlled, outpatient follow-up plans are in place, and home healthcare is arranged for nurse and PT visits. Patient is stable for discharge to home with family and [facility]. Physical Exam Const alert, oriented x3 and no apparent distress General Appearance: cooperative and comfortable HEENT normocephalic, head/scalp atraumatic, hearing grossly normal bilaterally and external ears normal Nose: external nose normal Eyes EOMs intact bilaterally General Eye: normal appearance of both eyes Neck General: normal visual inspection and trachea midline Resp normal respiratory effort and no use of accessory muscles Effort and Inspection: Negative for labored, stridor or audible wheezes Auscultation: diminished lung sounds Cardio regular rate and regular rhythm Extremity normal to inspection, no clubbing, cyanosis or edema and no calf tenderness Extremity Narrative: Feet pink and warm bilaterally. DP/PT nonpalpable, but with good doppler signals bilaterally. Normal capillary refill. Fem-fem bypass with strong, palpable pulse. Skin Skin Narrative: RLE incision sites with dressings C/D/I. Bilateral groin incision sites with provena vac dressings in place, functioning appropriately. LLE incision site with surgical glue intact. No erythema, swelling, hematoma, bleeding, drainage, foul odor noted. Neuro oriented x3, CN's II-XII intact bilaterally, moves all extremities, no focal motor deficits and no sensory deficits noted Speech: speech normal Psych mental status grossly normal Appearance: grossly normal Attitude: calm and engaged Activity / Motor Behavior: appropriate eye contact Speech: normal speech Mood & Affect: euthymic mood Thought Process: normal thought process Thought Content: normal thought content Attention / Concentration: attention grossly intact Memory / Cognition: memory grossly intact Insight: insight good Judgement: judgement good Weight / BMI Weight Weight: 114 lb 13.773 oz Body Mass Index (BMI) 19.7 ABG / Lab / Microbiology Data Result Diagrams: 08/03/22 08:04 08/03/22 08:04 Laboratory: Laboratory Results - last 24 hr 08/02/22 14:00: Hgb 8.6 L 08/03/22 08:04: Sodium 137, Potassium 3.6, Chloride 102, Carbon Dioxide 25.0, Anion Gap 10, BUN 18, Creatinine 0.87, Estim Creat Clear Calc 56.56, Est GFR (MDRD) Af Amer 110, Est GFR (MDRD) Non-Af 91, BUN/Creatinine Ratio 20.6 H, Glucose 55 L, Calcium 8.2 L 08/03/22 08:04: WBC 6.8, RBC 2.94 L, Hgb 8.5 L, Hct 27.3 L, MCV 92.9, MCH 28.9, MCHC 31.1 L, RDW Std Deviation 47.9 H, RDW Coeff of Barbara 14.2, Plt Count 163, MPV 10.3, Immature Gran % (Auto) 0.600, Neut % (Auto) 69.8, Lymph % (Auto) 15.2 L, Merrick % (Auto) 10.6 H, Eos % (Auto) 3.5, Baso % (Auto) 0.3, Absolute Neuts (auto) 4.8, Absolute Lymphs (auto) 1.04, Nucleated RBC % 0 Microbiology: Microbiology 08/01/22 20:50 Mucosa - Nasopharyngeal Respiratory Panel (PCR) - Final 08/01/22 20:50 Nasal Secretion SARS-CoV-2 & FLU Antigen (Rapid) - Final D/C Instructions Discharge Diet: No restrictions Weight Bearing Status: Weight bearing as tolerated Lifting Restricted to (Lbs): 20 Lifting Restrictions: Do not lift greater than 20 pounds for 4 weeks Call your doctor if your incision/area has: Sudden Increased Bleeding, Increased Pain/ Swelling, Increased Redness and Foul Smelling Discharge Call your doctor if you observe: Fever of 101 or Higher and Uncontrolled pain Additional Dressing/Incision Instructions: You may shower today. Do not take a bath or submerge incision sites in water for 4 weeks. You may remove the dressings over the incision sites down your right and left legs today. Leave the Provena vacuum dressings in place over the right and left groin incision sites until Friday, if possible. If they begin to alarm or are not maintaining good seal, you may just remove them. Remove them as instruc shai/demonstrated. Please call the office with any questions or concerns regarding this. All of the incision sites are covered with surgical skin glue. This will protect the incisions, no need to keep them covered once other dressings are removed, unless for your own comfort. Do not peel off the glue, it will start to come off on its own over the next few weeks. Additional Instructions: Do not lift greater than 20 pounds for 4 weeks. Ambulate as tolerated. Take your new Anoro inhaler daily as prescribed. Utilize the albuterol inhaler up to four times daily as needed. Use the recommended 2 lpm of supplemental oxygen as instructed. Obtain overnight oximetry ZAINAB and PFTs in 2-3 weeks as instructed by pulmonary medicine. Follow-up with pulmonary medicine as an outpatient for continued management of your COPD. Take protonix and carafate daily as instructed. Please obtain the ordered lab work for monitoring of your blood counts early next week. Follow-up outpatient as recommended. Take aspirin and plavix daily as prescribed. Check your blood pressure daily at home, notify our office or PCP if it is running higher or lower than usual. Follow-up in the vascular surgery clinic in 2-3 weeks. Please contact our office with any questions or concerns or to follow-up sooner as needed. Follow-up with your PCP on Friday for approval for home health, continued monitoring of BP, and to discuss changes made to your medications during this hospitalization. Please Follow Up With: Enoc Grubbs MD When: 2-3 weeks Meaningful Use Info Meaningful Use Diagnoses (Choose all that apply): None applicable Discharge Plan Admission Admit Date/Time: 07/29/22 05:49 Primary Reason for Your Visit: Multilevel revascularization, fem-fem and fem-pop bypass Attending Provider: Enoc Grubbs Primary Care Provider: Dom Chaidez Consulting Providers: Huy Gonzalez ; Mitzi Mccormack Discharge Orders/Prescriptions Prescriptions: New losartan 50 mg Tablet 50 mg PO DAILY Qty: 30 0RF sucralfate 1 gram Tablet 1 g PO 1HR_ACHS 30 Days Qty: 90 0RF clopidogrel 75 mg Tablet 75 mg PO DAILY 90 Days Qty: 90 3RF hydrochlorothiazide 12.5 mg Capsule 12.5 mg PO DAILY Qty: 30 0RF docusate sodium 100 mg Capsule 100 mg PO DAILY 30 Days Qty: 30 0RF oxycodone 5 mg Tablet 5 mg PO TID 3 Days Qty: 9 0RF guaifenesin [Mucus Relief ER] 600 mg Tablet Extended Release 12hr 600 mg PO BID 30 Days Qty: 60 0RF tamsulosin 0.4 mg Capsule 0.4 mg PO DAILY 30 Days Qty: 30 0RF Anoro Ellipta 62.5-25 mcg/actuation Blister With Device 1 inh inhalation DAILY Qty: 30 0RF pantoprazole 40 mg tablet,delayed release (DR/EC) 40 mg PO DAILY Qty: 30 0RF Continued aspirin [Adult Low Dose Aspirin] 81 mg tablet,delayed release (DR/EC) 81 mg PO DAILY glucose 4 GM tablet,chewable 4 g PO DAILY rosuvastatin [Crestor] 10 mg Tablet 10 mg PO QHS cilostazol 50 mg tablet 50 mg PO DAILY Held diltiazem HCl 180 MG capsule 180 mg PO DAILY Hold Instructions: Please follow-up with your PCP to monitor your BP and man age any further changes to your medications. Label Comments: BLOOD PRESSURE Discontinued valsartan-hydrochlorothiazide 1 TABLET tablet 320 mg PO DAILY Label Comments: BLOOD PRESSURE Referrals / Follow Up: Enoc Grubbs MD [Med Staff - Active Staff] - Dom Chaidez MD [Primary Care Provider] - Huy Gonzalez MD [Med Staff - Active Staff] - Disposition Disposition (needs filled in before D/C Order can be placed): Home Health Service
--- NOTE | 2022-08-03 12:50 | PN.CC_ITS ---
Assessment & Plan Assessment/Plan (1) Chronic bullous emphysema: PLAN: Chronic (2) COPD exacerbation: PLAN: The patient had significant oxygen desaturation on room air, and saturation of 88% at baseline. This is a borderline qualification for supplemental oxygen. Therefore I recommend - Stat ABG on room air. He would qualify with a PaO2 55-59 torr. Regarding recommendations for outpatient management: - Anoro inhaler 1 puff daily - DuoNeb 4 times daily - Complete and permanent smoking cessation - Oxygen therapy to keep SPO2 greater than or equal to 92% at all times - Overnight oximetry on 2 L/min and on room air ZAINAB to qualify for nocturnal oxygen and assure that 2 L/min is sufficient to meet SPO2 goal - Normally I would prescribe a prednisone taper, but will not recommend prednisone at this time due to concern about delaying wound healing and increasing risk of infection. - Complete PFTs as outpatient in 2 to 3 weeks - Keep his appointment with [facility] to fine-tune his COPD medication and determine if he can discontinue oxygen at that time. His testing should all be completed 2 weeks prior to his arrival in the office. (3) Incidental pulmonary nodule, less than or equal to 3mm: PLAN: Follow-up low-dose CT in 1 year (4) Acute respiratory failure with hypoxemia: PLAN: As above. Remains to be determined if the patient has chronic respiratory failure with CO2 retention, based on his blood gas today and his clinical course in the near future. PLAN: Plan Thank you for asking [facility] participate in this pleasant gentleman's care. I am looking forward to our group seeing him as an outpatient. Subjective Subjective Patient patient is breathing better, coughing less, not wheezing. FiO2 weaning to 2 to 3 L. Saturation 95% on 2 L at the time of my visit. Denies chest pain headache dizziness altered mental status leg edema. Wants to go home. Case discussed with the vascular PA. Objective Data Objective Data Vital Signs: Vital Signs Temp Pulse Resp BP Pulse Ox O2 Del Method O2 Flow Rate 98.3 F 95 14 125/66 H 88 Nasal Cannula 0 08/03/22 09:25 08/03/22 09:25 08/03/22 09:25 08/03/22 09:25 08/03/22 12:08 08/03/22 09:35 08/03/22 12:08 Oxygen Flow Rate (L/min) [ 2 AMBULATING with Oxygen #1] Oxygen Flow Rate (L/min) [ 0 AMBULATING on Room Air] Oxygen Flow Rate (L/min) [At 2 REST with Oxygen] Oxygen Flow Rate (L/min) [At 0 REST on Room Air] Oxygen Flow Rate (L/min) 2 Oxygen Delivery Method Nasal Cannula Weight: 114 lb 13.773 oz Body Mass Index (BMI) 19.7 Respiratory flowsheet indicates the patient desaturated to 88% on room air, and desaturated to 84% with minimal ambulation. The patient and his recommended that we use [employer] as their home oxygen company, which is the one she uses. Intake & Output: Intake and Output for Last 24 Hours 08/01/22 08/02/22 08/03/22 23:59 23:59 23:59 Intake Total 1204.55 / 1204.55 862 / 862 684 / 684 Output Total 1600 / 1600 400 / 400 200 / 200 Balance -395.45 / -395.45 462 / 462 484 / 484 Lab / Micro Data Attestation: I reviewed the patient's lab results. Result Diagrams: 08/03/22 08:04 08/03/22 08:04 Labs: Laboratory Results - last 24 hr 08/02/22 14:00: Hgb 8.6 L 08/03/22 08:04: Sodium 137, Potassium 3.6, Chloride 102, Carbon Dioxide 25.0, Anion Gap 10, BUN 18, Creatinine 0.87, Estim Creat Clear Calc 56.56, Est GFR (MDRD) Af Amer 110, Est GFR (MDRD) Non-Af 91, BUN/Creatinine Ratio 20.6 H, Glucose 55 L, Calcium 8.2 L 08/03/22 08:04: WBC 6.8, RBC 2.94 L, Hgb 8.5 L, Hct 27.3 L, MCV 92.9, MCH 28.9, MCHC 31.1 L, RDW Std Deviation 47.9 H, RDW Coeff of Barbara 14.2, Plt Count 163, MPV 10.3, Immature Gran % (Auto) 0.600, Neut % (Auto) 69.8, Lymph % (Auto) 15.2 L, Otero % (Auto) 10.6 H, Eos % (Auto) 3.5, Baso % (Auto) 0.3, Absolute Neuts (auto) 4.8, Absolute Lymphs (auto) 1.04, Nucleated RBC % 0 Micro: Microbiology 08/01/22 20:50 Mucosa - Nasopharyngeal Respiratory Panel (PCR) - Final 08/01/22 20:50 Nasal Secretion SARS-CoV-2 & FLU Antigen (Rapid) - Final Radiography Diagnostic Testing: reviewed. Physical Exam Narrative Well-developed slender gentleman in less respiratory distress than yesterday. Still using accessory muscles with movement HEENT: Nasal cannula, no thrush. Lungs are diminished bilaterally, but with better air movement than yesterday. Improved breath sounds, no wheezing. Heart normal S1-S2 with no murmur extremities have no clubbing cyanosis or edema, lower extremities are warm. Otherwise unchanged from yesterday. Exam of surgical sites deferred to vascular Charges/Coding Visit Charges Inpatient E&M: 35219 Subs Hosp L2
--- NOTE | 2022-08-03 13:35 | CPS ---
RESULTS SENT TO DR. CISNEROS.
[2022-08-03 13:36] LABS: Allen Test Positive; Base Excess -2 mmol/L (-2 to +2); Bicarbonate 22.2 mmol/L (22-26); Blood Gas Specimen Type ART; O2 Delivery Device Room Air; PO2 49 mmHG (75-100); SITE L Radial; SO2 87 % (95-99); Total Carbon Dioxide 23 mmol/L; pCO2 31.1 mmHg (35-45); pH 7.46 (7.35-7.45)
--- NOTE | 2022-08-03 13:49 | NURSING ---
[employer] notified of need for home oxygen and information faxed.
== END 2022-08-03 15:01 | disposition home health service (06) | DRG 252 ==
LOC: ACINP 05:50 → ICU 07-30 08:20 → PCU 07-31 18:32
PROVIDERS: Family Medicine; Internal Medicine; Physician Assistant; Admitting Provider Surgery Trauma Surgery; PCP Family Medicine; Referring Provider Surgery Trauma Surgery; Visit Provider Surgery Trauma Surgery
PROC: 047H3ZZ Dilation of Right External Iliac Artery, Percutaneous Approach (ICD-10-PCS; principal; 2022-07-29 07:00)
DX: I70.222 Atherosclerosis of native arteries of extremities with rest pain, left leg (principal); J96.01 Acute respiratory failure with hypoxia; J69.0 Pneumonitis due to inhalation of food and vomit; T82.856A Stenosis of peripheral vascular stent, initial encounter; J44.1 Chronic obstructive pulmonary disease with (acute) exacerbation; D62 Acute posthemorrhagic anemia; E78.00 Pure hypercholesterolemia, unspecified; I95.81 Postprocedural hypotension; F17.210 Nicotine dependence, cigarettes, uncomplicated; I10 Essential (primary) hypertension; E78.5 Hyperlipidemia, unspecified; Z79.02 Long term (current) use of antithrombotics/antiplatelets; Z79.82 Long term (current) use of aspirin; Z79.01 Long term (current) use of anticoagulants; R91.1 Solitary pulmonary nodule
CPT/HCPCS: 36415; 36600; 71045; 74018; 76000; 80048; 82306; 82803; 82962; 83036; 83735; 83880; 83970; 84100; 85014; 85018; 85025; 85027; 85347; 86850; 86900; 86901; 86920; 86922; 87428; 87633; 93005; 94640; 94668; 94762; 97110; 97162; 97166; 97530; 97535; 97802; 97803; 99406; A4648; C1769; C1874; C1894; J7030; J7040; J7050; J7120; P9016; P9047; A4216; C1725; J0295; J2405

== ENCOUNTER → 2022-08-19 | Outpatient (CLI) | payer MEDICARE, OTHER, SELFPAY ==
[2022-08-19 15:21] LABS: Hematocrit 34.6 % (40-54); Hemoglobin 10.9 g/dL (13.0-16.5); Mean Corp Hgb Conc 31.5 g/dL (32-36); Mean Corpuscular Hgb 29.9 pg (27.0-32.0); Mean Corpuscular Volume 94.8 fL (80-94); Mean Platelet Vol. 10.2 fl (6.2-12.0); Platelet Count 337 K/mm3 (150-450); RBC Distribution Width SD 51.9 fl (35.1-43.9); Red Blood Count 3.65 M/mm3 (4.6-6.2); White Blood Count 8.7 K/mm3 (4.4-11.0)
== END | disposition home or self-care (01) ==
LOC: MTLAB 14:02
PROVIDERS: PCP Family Medicine; Referring Provider Physician Assistant; Visit Provider Physician Assistant
DX: I70.222 Atherosclerosis of native arteries of extremities with rest pain, left leg (principal)
CPT/HCPCS: 36415; 85027

== ENCOUNTER → 2022-09-02 | Outpatient (CLI) | payer MEDICARE, OTHER, SELFPAY ==
--- NOTE | 2022-09-02 12:54 | ADU_ITS ---
Reason For Study: s/p Rt-Lt Fem-Fem, Lt Fem-Pop Right Velocities Left Velocities Ext. Iliac Artery, dist = 407 cm./sec. Ext Iliac Artery, dist = 0 cm./sec. Common Femoral Artery, mid = 387 cm./sec. Common Femoral Artery, mid = 0 cm./sec. Supf Femoral Artery, prox = 0 cm./sec. Supf. Femoral Artery, prox = 0 cm./sec. Supf Femoral Artery, mid = 0 cm./sec. Supf. Femoral Artery, mid = 13 cm./sec. Supf Femoral Artery, dist. = 35 cm./sec. Supf. Femoral Artery, dist = 26 cm./sec. Rt SFA is occluded at prox and mid thigh, flow Lt SFA is occluded at prox thigh, flow reconstitutes at distal thigh. reconstitues at mid thigh, flow reversal noted at Profunda Femoral Artery = 536 cm./sec. distal thigh Popliteal Artery, mid = 31 cm./sec. Post. Tibial Artery, prox = 30 cm./sec. Anechoic, non vascular structure noted Lt Groin Post. Tibial Artery, mid = 36 cm./sec. measuring 2.04cm x 5.23cm and 2.09cm x 3.88cm. Post. Tibial Artery, dist = 34 cm./sec. Profunda Femoral Artery = 35 cm./sec. Peroneal Artery, prox = 34 cm./sec. Popliteal Artery, mid = 62 cm./sec. Peroneal Artery, mid = 20 cm./sec. Post. Tibial Artery, prox = 49 cm./sec. Peroneal Artery,dist = 13 cm./sec. Post Tibial Artery, mid = 67 cm./sec. Ant. Tibial Artery, prox = 26 cm./sec. Post Tibial Artery, dist. = 55 cm./sec. Ant. Tibial Artery, mid = 23 cm./sec. Peroneal Artery, prox = 68 cm./sec. Ant. Tibial Artery, dist = 21 cm./sec. Peroneal Artery, mid = 49 cm./sec. Anechoic, non vascular strcuture noted Rt medial Peroneal Artery,dist. = 53 cm./sec. knee measuring 0.92cm x 1.54cm. Ant.Tibial Artery, prox = 81 cm./sec. Rt-Lt Fem-Fem Bypass: Ant Tibial Artery, mid = 92 cm./sec. Prox Anast: 199cm/s Ant. Tibial Artery, distal = 71 cm./sec. Prox graft: 105cm/s Lt Fem-Pop bypass: Mid graft: 100cm/s Prox Anast: 140cm/s Distal graft: 81cm/s Prox graft: 149cm/s Dist Anast: 76cm/s. Prox/mid graft: 52cm/s Mid graft: 60cm/s Mid/distal graft: 55cm/s Distal graft: 105cm/s Distal Anast: 92cm/s. Procedure Exam performed in department. VL/US Art Duplex Bilat Lower Ext Interpretation Summary Right external iliac, common femoral and profunda femoral arteries with stenosi s. May be due to caliber change. Right to left femoral-femoral bypass patent with normal velocities. Left profunda femoral artery with diminished waveforms and velocities. May be d ue to caliber change. Left femoral-popliteal bypass patent with normal velocities. Known bilateral SFA occlusions Ordering Physician: Enoc Grubbs Referring Physician: Dom Chaidez Performed By: Lashaun Desir, RDCS, RVT
--- NOTE | 2022-09-02 12:54 | ART_ITS ---
Reason For Study: s/p Rt-Lt Fem-Fem Bypass, Lt Fem-Pop Bypass Procedure A bilateral lower extremity continuous wave Doppler with analog waveform analysis and ankle brachial indexes. Left Segmental Pressures Left brachial= 146mmHg. Left posterior tibial artery = 116mmHg. Left dorsalis pedis artery = 116mmHg. Left digit = 98 mmHg. Right Segmental Pressures Right brachial= 135mmHg. Right posterior tibial artery = 64mmHg. Right dorsalis pedis artery = 72mmHg. Indices The right ankle brachial index by the posterior tibial artery is 0.44. The right ankle brachial index by the dorsalis pedis is 0.49. The left ankle brachial index by the posterior tibial artery is 0.79. The left ankle brachial index by the dorsalis pedis is 0.79. The left digital-brachial index is 0.67. VL/Ankle Brachial Index Interpretation Summary Right NEVA 0.49, severe arterial insufficiency.. Doppler/PVR waveforms of the ri ght ankle severely diminished at rest. Left NEVA 0.79, moderate arterial insufficiency. Doppler/PVR waveforms of the le ft ankle moderately diminished at rest. Ordering Physician: Enoc Grubbs Referring Physician: Dom Chaidez Performed By: Lashaun Desir RDCS/RVT
== END | disposition home or self-care (01) ==
LOC: CVS 12:53
PROVIDERS: PCP Family Medicine; Visit Provider Surgery Trauma Surgery
DX: I70.222 Atherosclerosis of native arteries of extremities with rest pain, left leg (principal)
CPT/HCPCS: 93922; 93925

== ENCOUNTER → 2022-09-03 | Outpatient (CLI) | payer MEDICARE, OTHER, SELFPAY ==
--- NOTE | 2022-09-03 11:00 | BD_ITS ---
STUDY: DUAL ENERGY X-RAY ABSORPTIOMETRY / DXA REASON FOR EXAM: Male, 71 years old. 733.00OsteoporosisBONE DENSITY REASON FOR EXAM TECHNIQUE: Bone Mineral Density (BMD) measurements of right forearm and bilateral hips were obtained. COMPARISON: None. FINDINGS: Left Femur Total: g/cm2 (0.381) / T-score (-4.3) / Z-score (-3.6) Left Femoral Neck: g/cm2 (0.250) / T-score (-5.0) / Z-score (-3.7) Right Femur Total: g/cm2 (0.434) / T-score (-4.0) / Z-score (-3.2) Right Femoral Neck: g/cm2 (0.355) / T-score (-4.2) / Z-score (-3.0) Right Forearm: g/cm2 (0.346) / T-score (-6.6) / Z-score (-5.2) BD/Dexa Bone Density Study IMPRESSION: The patient is considered osteoporotic as outlined below according to World [employer] Organization (WHO) criteria with a high fracture risk. Reference Information: The T-score is the number of standard deviations above or below the standard which is normal for young adults at their peak bone mineral density. The World Health Organization (WHO) interprets the T-scores as follows: Above -1 Normal bone density Between -1 and -2.5 Osteopenia Equal to / or below -2.5 Osteoporosis As a practical clinical guideline, osteopenia may be graded as follows: Mild -1 through -1.5 Moderate -1.6 through -2.0 Severe -2.1 through -2.4 The Z-score is the number of standard deviations above or below age-matched controls. A Z-score of less than -1.5 would be considered abnormal. References: 1. NIH Osteoporosis and Related Bone Diseases www osteo.org 2. International Society for Clinical Densitometry www iscd.org 3. National Osteoporosis Foundation www nof.org Electronically Signed: Prasad Felton MD at 14:24 EDT ,
== END | disposition home or self-care (01) ==
LOC: OPBD 10:53
PROVIDERS: PCP Family Medicine; Referring Provider Family Medicine; Visit Provider Family Medicine
DX: M81.0 Age-related osteoporosis without current pathological fracture (principal)
CPT/HCPCS: 77080

== ENCOUNTER → 2022-10-21 | Outpatient (CLI) | payer MEDICARE, OTHER, SELFPAY ==
--- NOTE | 2022-10-21 12:57 | ADU_ITS ---
Reason For Study: s/p Fem-Fem Bypass, Lt Fem-Pop Bypass Right Velocities Left Velocities Ext. Iliac Artery, dist = 273 cm./sec. Ext Iliac Artery, dist = 0 cm./sec. Common Femoral Artery, mid = 56 cm./sec. Common Femoral Artery, mid = 0 cm./sec. Supf Femoral Artery, prox = 0 cm./sec. Supf. Femoral Artery, prox = 0 cm./sec. Supf Femoral Artery, mid = 0 cm./sec. Supf. Femoral Artery, mid = 0 cm./sec. Supf Femoral Artery, dist. = 23 cm./sec. Supf. Femoral Artery, dist = 35 cm./sec. Rt MAN[employer]ING [employer]ITLES measures 1.66cm x 1.69cm, bidirectional Lt SFA is occluded at prox and mid thigh, flow flow noted reconstitues at distal thigh, flow reversal noted Rt SFA is occluded at prox and mid thigh, flow at distal thigh reconstitutes at distal thigh. Anechoic, non vascular structure noted Lt Groin Profunda Femoral Artery = 93 cm./sec. measuring 2.26cm x 3.39cm and 1.92cm x 4.40cm. Popliteal Artery, mid = 26 cm./sec. Profunda Femoral Artery = 36 cm./sec. Ant. Tibial Artery, prox = 35 cm./sec. Popliteal Artery, mid = 67 cm./sec. Ant. Tibial Artery, mid = 26 cm./sec. Ant.Tibial Artery, prox = 80 cm./sec. Ant. Tibial Artery, dist = 18 cm./sec. Ant Tibial Artery, mid = 39 cm./sec. Post. Tibial Artery, prox = 22 cm./sec. Ant. Tibial Artery, distal = 48 cm./sec. Post. Tibial Artery, mid = 24 cm./sec. Post. Tibial Artery, prox = 65 cm./sec. Post. Tibial Artery, dist = 15 cm./sec. Post Tibial Artery, mid = 57 cm./sec. Peroneal Artery, prox = 29 cm./sec. Post Tibial Artery, dist. = 33 cm./sec. Peroneal Artery, mid = 22 cm./sec. Peroneal Artery, prox = 51 cm./sec. Peroneal Artery,dist = 17 cm./sec. Peroneal Artery, mid = 33 cm./sec. Rt-Lt Fem-Fem Bypass: Peroneal Artery,dist. = 38 cm./sec. Prox Anast: 149cm/s Lt Fem-Pop bypass: Prox graft: 83cm/s Prox Anast: 104cm/s Mid graft: 59cm/s Prox graft: 60cm/s Distal graft: 54cm/s Prox/mid graft: 55cm/s Dist Anast: 33cm/s. Mid graft: 50cm/s Mid/distal graft: 48cm/s Distal graft: 48cm/s Distal Anast: 41cm/s. VL/US Art Duplex Bilat Lower Ext Interpretation Summary Patent right to left femoral-femoral bypass with normal velocities and waveform s Patent left femoral-popliteal bypass with normal velocities and waveforms Right external iliac artery with elevated velocities at distal stent. Known right SFA occlusion Known left external iliac, common femoral, SFA occlusions. Ordering Physician: Lucy Fitch Referring Physician: Dom Chaidez Performed By: Lashaun Desir, FLORENTINO, RVT
--- NOTE | 2022-10-21 12:57 | ART_ITS ---
Reason For Study: s/p Fem-Fem Bypass, Lt Fem-Pop Bypass Procedure A bilateral lower extremity continuous wave Doppler with analog waveform analysis and ankle brachial indexes. Left Segmental Pressures Left brachial= 98mmHg. Left posterior tibial artery = 72mmHg. Left dorsalis pedis artery = 80mmHg. Left digit = 58 mmHg. Right Segmental Pressures Right brachial= 100mmHg. Right posterior tibial artery = 53mmHg. Right dorsalis pedis artery = 51mmHg. Indices The right ankle brachial index by the posterior tibial artery is 0.53. The right ankle brachial index by the dorsalis pedis is 0.51. The left ankle brachial index by the posterior tibial artery is 0.72. The left ankle brachial index by the dorsalis pedis is 0.80. The left digital-brachial index is 0.58. VL/Ankle Brachial Index Interpretation Summary Right NEVA 0.53, severe arterial insufficiency. Doppler/PVR waveforms of the rig ht ankle severely diminished. Left NEVA 0.8, moderate arterial insufficiency. Doppler/PVR waveforms of the lef t ankle moderately diminished. Ordering Physician: Lucy Fitch Referring Physician: Dom Chaidez Performed By: Ambrosio Baugh MD
== END | disposition home or self-care (01) ==
LOC: CVS 12:57
PROVIDERS: PCP Family Medicine; Referring Provider Physician Assistant; Visit Provider Physician Assistant
DX: Z95.828 Presence of other vascular implants and grafts (principal); I77.9 Disorder of arteries and arterioles, unspecified; I70.222 Atherosclerosis of native arteries of extremities with rest pain, left leg; Z98.62 Peripheral vascular angioplasty status
CPT/HCPCS: 93922; 93925

== ENCOUNTER → 2022-10-24 | Outpatient (CLI) | payer MEDICARE, OTHER, SELFPAY ==
--- NOTE | 2022-10-24 13:59 | VDLE_ITS ---
Reason For Study: Left leg swelling Procedure LEFT This is a venous duplex using B-mode, color CFV is compressible, spontaneous, phasic, flow and spectral Doppler. competent, and demonstrates normal Exam performed in department. augmentation. A preliminary report was called and/or faxed FV is compressible, spontaneous, phasic, to Shirley [employer]. competent and demonstrates normal augmentation. POP V is compressible, spontaneous, phasic, competent and demonstrates normal augmentation. T/P Trunk is compressible. PTV is compressible. LT PerV is compressible. GSV previously harvested Anechoic, non vascular structure noted Lt Groin measuring. VL/Venous Duplex US, Unilateral Interpretation Summary Deep veins of the left lower extremity are patent and compressible segmentally. There is no evidence of left lower extremity deep vein thrombosis. Anechoic, non vascular structure noted left groin. Ordering Physician: Lucy Fitch Referring Physician: Dom Chaidez Performed By: Renita Avina RVT
== END | disposition home or self-care (01) ==
LOC: CVS 13:58
PROVIDERS: PCP Family Medicine; Referring Provider Physician Assistant; Visit Provider Physician Assistant
DX: M79.89 Other specified soft tissue disorders (principal)
CPT/HCPCS: 93971

== ENCOUNTER → 2022-10-31 | Outpatient (CLI) | payer MEDICARE, OTHER, SELFPAY ==
--- NOTE | 2022-10-31 14:47 | CT_ITS ---
STUDY: CTA OF THE ABDOMINAL AORTA AND BILATERAL LOWER EXTREMITIES REASON FOR EXAM: Male, 72 years old. Status post right to left femorofemoral and left femoropopliteal bypass graft. History of right iliac arterial stent. RADIATION DOSAGE (If Supplied By Facility): CTDIvol = ( 7.66 ) mGy, DLP = ( 849.97 ) mGycm TECHNIQUE: Axial CT angiography multi-detector data acquisition was obtained from the diaphragm to the feet following intravenous administration of IV 100mL Isovue-370. Axial images and MIP images were reconstructed from the axial data set. Post-processing of the angiographic images was performed, with multiplanar reformation and 3D reconstruction. Individualized dose optimization techniques were used for this CT. TECHNICAL QUALITY: Good COMPARISON: CTA of the abdomen and lower extremities, May 09, 2002. Descriptors of Narrowing: None (0%) Mild (< 50%) Moderate (50-70%) Severe (70-90%) Subtotal/Total Occlusion (90-100%) Non-Evaluable (technically non-diagnostic FINDINGS: Abdominal aorta: Atherosclerotic tortuosity of the lower thoracic and abdominal aorta. No dissection or aneurysm. No stricture. Celiac and superior mesenteric arteries: Atherosclerotic changes at the origins of the celiac and superior mesenteric arteries without visualized stenosis. Inferior mesenteric artery: Nonvisualized. Right renal artery(arteries): Atherosclerotic changes with mild stenosis of the larger upper renal artery. The smaller renal artery is unremarkable.. Left renal artery(arteries): Atherosclerotic changes with significant stenosis. Right common iliac artery: Arterial stent with marked posterior calcifications. Right external iliac artery: Patent arterial stent. Right internal iliac artery: Atherosclerotic changes with marked stenosis. Left common iliac artery: Occluded Left external iliac artery: Occluded Left internal iliac artery: Occluded RIGHT LOWER EXTREMITY Right common femoral artery: Minimal atherosclerotic changes without stenosis. Right profundus femoris: No demonstrated narrowing. Right superficial femoral: Occluded with marked calcifications. Right popliteal artery: There is reconstitution of popliteal artery via collaterals. Right tibioperoneal trunk: No demonstrated narrowing. Right anterior tibial artery: No demonstrated narrowing. Right posterior tibial artery: No demonstrated narrowing. Right peroneal artery: No demonstrated narrowing. LEFT LOWER EXTREMITY Left common femoral artery: Occluded there is a patent femorofemoral prior bypass graft. Left profundus femoris: No demonstrated narrowing. Left superficial femoral: Occluded there is a patent femoropopliteal bypass graft reconstitutes the popliteal artery posterior to the femoral condyles Left popliteal artery: Scattered atherosclerotic changes without significant stenosis. Left tibioperoneal trunk: Atherosclerotic changes without significant stenosis. Left anterior tibial artery: No demonstrated narrowing. Left posterior tibial artery: No demonstrated narrowing. Left peroneal artery: No demonstrated narrowing. Hyperexpanded emphysematous lungs without mass. Heart is normal size. Coronary artery calcifications. Normal liver. Normal gallbladder and biliary ductal system. Normal spleen. Normal pancreas. Normal adrenal glands. Prominent right kidney. Left kidney is small in size and demonstrates decreased enhancement with marked vascular calcifications. Normal IVC. Normal retroperitoneum. Normal stomach. Normal small bowel. Normal colon. The appendix is not clearly visualized. Normal urinary bladder. Enlarged prostate. No pelvic lymphadenopathy. No free air or free fluid is seen within the abdominal cavity. Normal abdominal wall. There is marked levoscoliosis of the thoracolumbar spine with associated degenerative changes. CT/CTA Abd w/Runoff W/WO Contrast IMPRESSION: 1. Atherosclerotic tortuosity of the abdominal aorta without dissection aneurysm or stricture. 2. Significant stenosis of the left renal vein with small left kidney which demonstrates decrease enhancement. 3. Occluded left common iliac, external iliac, internal iliac and common femoral veins. 4. Patent right iliac arterial stent. 5. Patent femorofemoral bypass graft. 6. Occluded right femoral artery. The popliteal artery reconstitutes via collaterals from the profunda artery. The calf vessels appear normal. 7. Patent left femoropopliteal bypass graft. The distal vessels are unremarkable. 8. Emphysematous changes of the lungs. 9. Enlarged prostate. 10. Scoliosis and degenerative changes of the lumbar spine. Electronically Signed: Reese Oconnor DO at 21:55 EDT Reading Location ID and State: [address] [place] [address] Tel [phone], Service support ,
[2022-10-31 15:25] LABS: CREATININE FINGERSTICK 1.6 mg/dL (0.70-1.30)
== END | disposition home or self-care (01) ==
LOC: CT 14:46
PROVIDERS: PCP Family Medicine; Referring Provider Physician Assistant; Visit Provider Physician Assistant
DX: Z95.828 Presence of other vascular implants and grafts (principal); I70.1 Atherosclerosis of renal artery; Z48.812 Encounter for surgical aftercare following surgery on the circulatory system
CPT/HCPCS: 75635; Q9967

== ENCOUNTER → 2022-11-27 | Outpatient (CLI) | payer MEDICARE, OTHER, SELFPAY ==
[2022-11-27 17:58] LABS: Absolute Lymphocyte Count 1.14 X10^3/uL (0.83-4.51); Absolute Neutrophil Count 5.7 X10^3/uL (2.0-7.7); Basophil# 0.04 X10^3/uL; Basophil% 0.5 % (0-1); Eosinophil# 0.16 X10^3/uL; Eosinophils% 2.1 % (0-5); Hematocrit 31.7 % (40-54); Hemoglobin 9.5 g/dL (13.0-16.5); Lymphocyte # 1.14 X10^3/ul (0.83-4.51); Lymphocyte % 14.9 % (19-41); Mean Corpuscular Hgb 29.7 pg (27.0-32.0); Mean Corpuscular Volume 99.1 fL (80-94); Mean Platelet Vol. 10.2 fl (6.2-12.0); Monocyte% 7.9 % (0-10); NRBC Flagged by Analyzer 0 % (0-5); Neutrophil # 5.68 X10^3/uL (2.7-7.7); Neutrophil % 74.3 % (47-70); Platelet Count 353 K/mm3 (150-450); RBC Distribution Width CV 13.1 % (11.6-14.6); RBC Distribution Width SD 47.8 fl (35.1-43.9); White Blood Count 7.6 K/mm3 (4.4-11.0)
[2022-11-27 18:15] LABS: Hemoglobin A1c < 3.8 % (3.8-5.6)
[2022-11-27 18:23] LABS: ALB/GLOB Ratio 0.7 RATIO (0.9-2.4); AST(SGOT) 10 U/L (15-37); Alanine Aminotransfer ALT/SGPT 17 U/L (16-61); Albumin, Serum 3.4 g/dL (3.2-5.0); Alkaline Phosphatase 93 U/L (45-117); Anion Gap 7 (5-15); BUN 31 mg/dL (7-18); BUN/Creat Ratio 20.5 RATIO (10-20); Calcium,Total 9.9 mg/dL (8.5-10.1); Chloride 103 mmol/L (98-107); Cholesterol 135 mg/dL (200); Creatinine, Serum 1.51 mg/dL (0.70-1.30); EST Glomerular Filtration Rate 48 mL/min (>60); Est Glom Filt Rate - Afr Amer 59 mL/min (>60); Globulin 4.6 g/dL (2.2-4.2); Glucose 105 mg/dL (74-106); High Density Lipoprotein 77 mg/dL; Phosphorus 3.4 mg/dL (2.5-4.9); Potassium 3.8 mmol/L (3.5-5.1); Sodium Level 136 mmol/L (136-145); Triglycerides 61 mg/dL; Very Low Density Lipoprotein 12 mg/dL (5-40)
[2022-11-27 18:39] LABS: Vitamin D,25 Hydroxy 90.7 ng/mL
[2022-11-28 08:19] LABS: PTHIN 27.9 pg/mL (18.4-80.1)
[2022-11-28 17:28] LABS: Ferritin 33 ng/mL (26-388); Iron 184 ug/dL (65-175); Iron Binding Capacity,Total 405 ug/dL (250-450); PERCENT IRON SATURATION 45.4 % (15.0-55.0)
== END | disposition home or self-care (01) ==
LOC: MFPLAB 15:54
PROVIDERS: PCP Family Medicine; Visit Provider Family Medicine
DX: D64.9 Anemia, unspecified (principal); R73.02 Impaired glucose tolerance (oral); M81.0 Age-related osteoporosis without current pathological fracture; N18.9 Chronic kidney disease, unspecified; I12.9 Hypertensive chronic kidney disease with stage 1 through stage 4 chronic kidney disease, or unspecified chronic kidney disease
CPT/HCPCS: 36415; 80053; 80061; 82306; 82728; 83036; 83540; 83550; 83970; 84100; 85025

== ENCOUNTER 2023-01-18 11:31 | Inpatient (IN) | payer MEDICARE, OTHER, SELFPAY ==
[2023-01-18] VITALS (24 sets, daily range): BP systolic 66–127; BP diastolic 49–98; PULSE 78–108; RESP 14–24; TEMP 36.2–37.1; O2SAT 90–100; BMI 16.3; BMI 15.6
--- NOTE | 2023-01-18 11:39 | EKG12_ITS ---
Test Reason : SOB Blood Pressure : / mmHG Vent. Rate : 094 BPM Atrial Rate : 094 BPM P-R Int : 192 ms QRS Dur : 072 ms QT Int : 350 ms P-R-T Axes : 074 065 077 degrees QTc Int : 437 ms Normal sinus rhythm Septal infarct (cited on or before 10-JAN-2006) Abnormal ECG Confirmed by ТАТЬЯНА EDDY, JASON ([id number]), electronic news gathering editor PAULA STARK ([id number]) on 02/03/2023 1:53:23 PM Referred By: Confirmed By:ANNETTE VAZ MD
--- NOTE | 2023-01-18 11:41 | EDS_ITS ---
HPI History of Present Illness Chief Complaint: Weakness Informant: patient Narrative Narrative: Patient presents via EMS secondary to weakness. He states he is not felt well for the past month but was much worse today. He states he is been eating and drinking okay. His doctor did give him some medicine for his stomach but he does not know what it is. He picked up the prescription but has not yet started it. He has a mild chronic cough that is unchanged from baseline. No fever or chills. He has had no falls. He states his blood pressure has been running low with systolic in the 90s recently. He does not believe he took his medication this morning but does not remember for sure. Our records indicate patient is on Xarelto however patient states he does not think he is on that medication any longer. He does not know why he was on it initially [facility] Medical History Acute respiratory failure with hypoxemia Alcohol abuse Back pain Chronic bullous emphysema COPD (chronic obstructive pulmonary disease) COPD exacerbation Edema Hard of hearing Head injury Heartburn High cholesterol History of stress test HTN (hypertension) Hypoglycemia Incidental pulmonary nodule, less than or equal to 3mm Leg cramps Leg pain Neuropathy Osteoporosis PAOD (peripheral arterial occlusive disease) Passed out Peripheral arterial occlusive disease Shortness of breath Smoker Wears eyeglasses Home Medications diltiazem HCl 180 mg capsule,extended release 24 hr 180 mg PO DAILY BP 06/20/14 [History Last Taken 07/29/22] glucose 4 gram chewable tablet 4 g PO DAILY sugar 01/18/20 [History Last Taken 01/18/20] aspirin 81 mg tablet,delayed release (Adult Low Dose Aspirin) 81 mg PO DAILY SUPPLEMENT 05/02/22 [History Last Taken 07/28/22] cilostazol 50 mg tablet 50 mg PO DAILY BONE 07/15/22 [History Last Taken Unknown] clopidogrel 75 mg tablet 75 mg PO DAILY 90 days #90 tabs 08/03/22 [Rx Last Taken Unknown] guaifenesin 600 mg tablet, extended release 12 hr (Mucus Relief ER) 600 mg PO BID 30 days #60 tabs 08/03/22 [Rx Last Taken Unknown] tamsulosin 0.4 mg capsule 0.4 mg PO DAILY 30 days #30 caps 08/03/22 [Rx Last Taken Unknown] umeclidinium 62.5 mcg-vilanterol 25 mcg/actuation powdr for inhalation (Anoro Ellipta) 1 inh inhalation DAILY #30 days 08/03/22 [Rx Last Taken Unknown] albuterol sulfate 90 mcg/actuation aerosol inhaler 1 inh inhalation 08/20/22 [History Last Taken Unknown] rosuvastatin 20 mg tablet 20 mg PO DAILY 08/20/22 [History Last Taken Unknown] valsartan 320 mg-hydrochlorothiazide 12.5 mg tablet 1 tab PO DAILY 08/20/22 [History Last Taken Unknown] pantoprazole 40 mg tablet,delayed release 40 mg PO DAILY #90 tabs 08/26/22 [Rx Last Taken Unknown] rivaroxaban 2.5 mg tablet (Xarelto) 2.5 mg PO BID #60 tabs 09/03/22 [Rx Last Taken Unknown] rosuvastatin 10 mg tablet mg 01/18/23 [History Last Taken Unknown] Allergy/AdvReac Type Severity Reaction Status Date / Time ciprofloxacin HCl Allergy Severe Nausea Verified 08/26/22 12:51 [From Cipro] Family History Father Hypertension Cancer lung Other Osteoporosis Surgical History Hx of colonoscopy Hx of left cataract extraction Hx of right cataract extraction Status post peripheral artery angioplasty Social History Smoking Status: Current every day smoker tobacco type: cigarettes ROS ROS ED Constitutional Constitutional ED: Denies chills or fever(s) Eyes Eyes: Denies change in vision or discharge from eye(s) ENT ENT ED: Denies discharge from eye(s), rhinorrhea or sore throat Cardiovascular Cardiovascular: Denies chest pain or palpitations Respiratory/Chest Respiratory/Chest: Reports cough and dyspnea Gastrointestinal Gastrointestinal: Reports abdominal pain; Denies diarrhea, nausea or vomiting Genitourinary Genitourinary ED: Denies dysuria Musculoskeletal Musculoskeletal: Denies back pain or extremity pain Integumentary Denies Abrasions or rash Neurologic Neurologic: Reports weakness; Denies headache(s) Psychiatric Psychiatric: Denies anxiety or depression Allergic/Immunologic Allergic/Immunologic ED: Denies lip swelling or urticaria EXAM Physical Exam Const Vital Signs: 01/18/23 11:32 01/18/23 11:48 Temperature 97.2 F L Temperature Source Temporal Pulse Rate 108 H Respiratory Rate 20 H Respiratory Effort Short of Breath Respiratory Pattern Normal Blood Pressure 66/49 L Blood Pressure Mean 54 Pulse Ox 96 Oxygen Delivery Method Room Air Positive cachectic General Appearance ED: cachectic Nutritional Appearance: cachectic HEENT Reports normocephalic and head/scalp atraumatic Eyes PERRL and EOMs intact bilaterally Neck supple Chest Wall inspection of chest normal and palpation of chest normal Resp normal respiratory effort Resp Narrative: Diminished breath sounds bilaterally. Cardio regular rate and regular rhythm GI GI Narrative: Abdomen soft with no focal tenderness. Rectal examination performed. No hemorrhoids or masses noted. Dark stool noted on gloved finger. Palpation: soft Extremity normal to inspection Neuro oriented x3 Neuro Narrative: Generalized weakness with no focal deficit Sensorium / Orientation: alert Psych mental status grossly normal Skin no rashes or lesions noted MDM MDM MDM Narrative Medical decision making narrative: Patient placed on radiographer cardiac catheterization. IV line established and IV fluid boluses initiated for his hypotension. EKG obtained to evaluate for cardiac arrhythmia/ischemia. Labwork obtained to evaluate for leukocytosis, anemia, and electrolyte derangement. Chest x-ray obtained to evaluate for acute lung pathology, cardiac size, or mediastinal abnormality. Urinalysis obtained to evaluate for infection/hematuria. History & Record Review Discussion w/independent historian: EMS personnel, Patient and Family Additional record(s) reviewed:: Prior ED visit and Prior labs Lab Data Attestation: I reviewed the patient's lab results. Labs: Laboratory Results - last 24 hr 01/18/23 01/18/23 01/18/23 11:50 11:56 12:40 WBC 8.9 RBC 1.86 L Hgb 5.4 L* Hct 18.3 L MCV 98.4 H MCH 29.0 MCHC 29.5 L RDW Std Deviation 54.1 H RDW Coeff of Barbara 15.7 H Plt Count 316 MPV 10.3 Immature Gran % (Auto) 0.400 Neut % (Auto) 70.0 Lymph % (Auto) 20.9 [place] % (Auto) 8.1 Eos % (Auto) 0.2 Baso % (Auto) 0.4 Absolute Neuts (auto) 6.2 Absolute Lymphs (auto) 1.86 Nucleated RBC % 0 Differential Comment SCANNED Diff Path Review May foll Hypochromasia 1+ Anisocytosis 2+ Microcytosis 1+ Macrocytosis 1+ Sodium 137 Potassium 4.5 Chloride 103 Carbon Dioxide 21.0 Anion Gap 13 BUN 68 H Creatinine 1.93 H Estim Creat Clear Calc 9.14 Est GFR (MDRD) Af Amer 44 L Est GFR (MDRD) Non-Af 36 L BUN/Creatinine Ratio 35.2 H Glucose 131 H Lactic Acid 6.7 H* Calcium 9.3 Total Bilirubin 0.30 Direct Bilirubin 0.15 AST 65 H ALT 50 Alkaline Phosphatase 64 Troponin I High Sens 15 Total Protein 6.0 L Albumin 2.7 L Globulin 3.3 Blood Type Cancelled Antibody Screen Cancelled Crossmatch See Detail Radiography Chest X-Ray - ED: 1 View, Read by ED Physician and - (Scoliosis with chronic lung and bony changes. No evidence of focal infiltrate.) Diagnostic Testing: Clinical Impression(s) from Imaging Studies Chest X-Ray 01/18/23 12:09 IMPRESSION: Degenerative changes, as described above. No demonstrated acute cardiopulmonary process. Electronically Signed: Crow Mcgregor MD at 12:43 EDT , EKG Initial EKG: Attestation: I personally reviewed and interpreted this EKG as follows: Interpretation: Sinus Rhythm (Sinus rhythm at [address] change.) Treatment and Re-Evaluation :: CBC is reveals normal white count at 8.9. Hemoglobin is low at 5.4 with hematocrit of 18.3. On November 27 of this year his hemoglobin was 9.5. Chemistry studies reveal a BUN of 68 and a creatinine of 1.93. Creatinine on November 27 was 1.51. Glucose is 131. LFTs are largely unremarkable. Troponin is normal at 15. Lactic acid is elevated at 6.7. EKG is sinus rhythm at 94 bpm with no acute ischemia. Chest x-ray per my interpretation reveals significant scoliosis changes with no evidence of focal infiltrate. Patient has been given IV fluids for blood pressure support. MAP remains between 60 and 65. 3 units of packed RBCs have been ordered given his significant anemia. Rectal examination was performed and reveals dark stool on gloved finger. This returns negative for occult blood. Patient states he has had black stool which she thought was secondary to iron supplements. Family then states that he stopped taking iron 3 weeks ago but in spite of this continues to have dark stools. It is also noted that patient has not been wearing his home oxygen which she is supposed to wear. It is very difficult to get a good waveform on him given his hypotension, but we have been able to get pulse ox is in the 90s. He was placed on 2 L nasal cannula which he is supposed to be wearing at home. This may also be contributing to his lactic acidosis. Discharge Plan Triage Chief Complaint: Weakness ED Provider: Kimberly Cowart Dx/Rx/DC Orders Clinical Impression: Anemia, Hypotension, Acidosis, lactic Prescriptions: No Action aspirin [Adult Low Dose Aspirin] 81 mg tablet,delayed release (DR/EC) 81 mg PO DAILY Hold Instructions: Order Changed valsartan-hydrochlorothiazide 320-12.5 mg tablet 1 tab PO DAILY Patient Comments: TAKE 1 TABLET BY MOUTH ONCE DAILY albuterol sulfate 90 mcg/actuation HFA aerosol inhaler 1 inh inhalation Patient Comments: INHALE 2 PUFFS BY MOUTH EVERY 4 HOURS NEEDED rosuvastatin 20 mg tablet 20 mg PO DAILY Patient Comments: TAKE 1 TABLET BY MOUTH ONCE DAILY pantoprazole 40 mg tablet,delayed release (DR/EC) 40 mg PO DAILY Qty: 90 3RF diltiazem HCl 180 MG capsule 180 mg PO DAILY Hold Instructions: Please follow-up with your PCP to monitor your BP and manage any further changes to your medications. Patient Comments: BLOOD PRESSURE glucose 4 GM tablet,chewable 4 g PO DAILY cilostazol 50 mg tablet 50 mg PO DAILY clopidogrel 75 mg Tablet 75 mg PO DAILY 90 Days Qty: 90 3RF guaifenesin [Mucus Relief ER] 600 mg Tablet Extended Release 12hr 600 mg PO BID 30 Days Qty: 60 0RF tamsulosin 0.4 mg Capsule 0.4 mg PO DAILY 30 Days Qty: 30 0RF Anoro Ellipta 62.5-25 mcg/actuation Blister With Device 1 inh inhalation DAILY Qty: 30 0RF rosuvastatin 10 mg tablet Patient Comments: TAKE 1 TABLET BY MOUTH ONCE DAILY Xarelto 2.5 mg tablet 2.5 mg PO BID Qty: 60 5RF Primary Care Provider: Dom Chaidez Referrals: Dom Chaidez MD [Primary Care Provider] - Disposition Disposition: Acute Care Hospital [facility]
[2023-01-18] MEDS: 0.9% Normal Saline 1,000 ML 1000 ML IV (12:00)
[2023-01-18 12:02] LABS: Absolute Lymphocyte Count 1.86 X10^3/uL (0.83-4.51); Absolute Neutrophil Count 6.2 X10^3/uL (2.0-7.7); Basophil# 0.04 X10^3/uL; Basophil% 0.4 % (0-1); Eosinophil# 0.02 X10^3/uL; Eosinophils% 0.2 % (0-5); Hematocrit 18.3 % (40-54); Lymphocyte # 1.86 X10^3/ul (0.83-4.51); Lymphocyte % 20.9 % (19-41); Mean Corp Hgb Conc 29.5 g/dL (32-36); Mean Corpuscular Volume 98.4 fL (80-94); Mean Platelet Vol. 10.3 fl (6.2-12.0); Monocyte# 0.72 X10^3/uL; Monocyte% 8.1 % (0-10); NRBC Flagged by Analyzer 0 % (0-5); Neutrophil # 6.22 X10^3/uL (2.7-7.7); POSITIVE COUNT YES; Platelet Count 316 K/mm3 (150-450); RBC Distribution Width CV 15.7 % (11.6-14.6); RBC Distribution Width SD 54.1 fl (35.1-43.9); Red Blood Count 1.86 M/mm3 (4.6-6.2); White Blood Count 8.9 K/mm3 (4.4-11.0)
[2023-01-18 12:05] LABS: Differential Indicated SCAN CRITERIA MET
[2023-01-18 12:06] LABS: Hemoglobin 5.4 g/dL (13.0-16.5)
--- NOTE | 2023-01-18 12:09 | RAD_ITS ---
STUDY: X-RAY CHEST REASON FOR EXAM: Male, 72 years old. Cough TECHNIQUE: Single AP portable view of the chest. COMPARISON: August 01, 2022 FINDINGS: The lungs are clear and expanded. There is no demonstrated pleural abnormality. Normal size heart. Normal mediastinum and clara. Normal visualized pulmonary arteries. There is atherosclerotic calcification of the aortic arch with tortuosity. There is a levoscoliosis of the thoracic spine. Normal visualized ribs, clavicles, and shoulders. There is no demonstrated abnormality of the visualized soft tissue structures of the upper abdomen. RAD/Chest 1 View (Portable) IMPRESSION: Degenerative changes, as described above. No demonstrated acute cardiopulmonary process. Electronically Signed: Crow Mcgregor MD at 12:43 EDT ,
[2023-01-18 12:14] LABS: AST(SGOT) 65 U/L (15-37); Alanine Aminotransfer ALT/SGPT 50 U/L (16-61); Albumin, Serum 2.7 g/dL (3.2-5.0); Alkaline Phosphatase 64 U/L (45-117); Anion Gap 13 (5-15); BUN 68 mg/dL (7-18); BUN/Creat Ratio 35.2 RATIO (10-20); Bilirubin, Direct 0.15 mg/dL (0.00-0.30); Calcium,Total 9.3 mg/dL (8.5-10.1); Chloride 103 mmol/L (98-107); Creatinine, Serum 1.93 mg/dL (0.70-1.30); EST Glomerular Filtration Rate 36 mL/min (>60); Est Glom Filt Rate - Afr Amer 44 mL/min (>60); Estimated Creatinine Clearance 9.14 ml/min; Globulin 3.3 g/dL (2.2-4.2); Glucose 131 mg/dL (74-106); Potassium 4.5 mmol/L (3.5-5.1); Sodium Level 137 mmol/L (136-145); Troponin-I HS 15 pg/mL (3.0-78.0)
[2023-01-18 12:38] LABS: Lactic Acid 6.7 mmol/L (0.4-1.9)
[2023-01-18 12:43] LABS: Anisocytosis 2+; Differential Comment SCANNED; Hypochromasia 1+; Macrocytosis 1+; Microcytosis 1+
[2023-01-18 13:17] LABS: International Normalized Ratio 1.3; Prothrombin Time (Protime)PT. 15.8 SECONDS (11.7-14.9)
[2023-01-18] MEDS: 0.9% Normal Saline 1,000 ML 999 ML IV (13:17)
[2023-01-18 13:18] LABS: Partial Thromboplast Time 27.4 Seconds (24.1-36.2)
--- NOTE | 2023-01-18 13:32 | NURSING ---
DR ARCE FOR DR CRONIN
--- NOTE | 2023-01-18 13:42 | NURSING ---
ICU ARCE ANEMIA, HYPOTENSION, LACTIC ACIDOSIS
--- NOTE | 2023-01-18 14:05 | NURSING ---
ICU 3
--- NOTE | 2023-01-18 14:08 | PCM.HP.STD ---
HPI - General General Date of Admission: 01/18/23 Date of Service: 01/18/23 Chief Complaint: Generalized weakness HPI Narrative RYAN ESCOBAR, is a 72 M with a history of peripheral vascular disease, COPD, BPH, and hypertension who presented to [facility] 01/18/2023 for epigastric pain and generalized weakness. Over the past 1 month he has been having some burning abdominal pain and has progressively become more weak. His physician sent in a prescription for PPI however patient failed it but did not pick it up and per family has been noncompliant with most of his medications. Over the past day his weakness and pain drastically worsened prompting emergency department visit. Hemoglobin noted to be 5.4 in the ED with a lactic acid of 6.7, patient was hypotensive with a BP of 66/49 on initial presentation. Patient had dark stool on exam in the ED but occult blood reported as negative. Hospitalist consulted for admission for his hypotension, anemia, elevated lactic acid. Patient evaluated at bedside with 2 daughters and spouse and they confirmed that he has been progressively weaker over 1 month, he reports the pain in his epigastrium that was worsened today and he had associated nausea without vomiting earlier. Denies any bright red blood in stool. Reports that he has been having dark stools due to taking iron however daughter confirmed that he stopped taking iron 3 to 4 weeks ago. Denies any changes in urination. At his baseline shortness of breath. Does report that he used to have a high blood pressure but over the past couple of months his blood pressure has been lower and lower with unclear reason. No other acute complaints at this time. [facility] Medical History Acute respiratory failure with hypoxemia Alcohol abuse Back pain Chronic bullous emphysema COPD (chronic obstructive pulmonary disease) COPD exacerbation Edema Hard of hearing Head injury Heartburn High cholesterol History of stress test HTN (hypertension) Hypoglycemia Incidental pulmonary nodule, less than or equal to 3mm Leg cramps Leg pain Neuropathy Osteoporosis PAOD (peripheral arterial occlusive disease) Passed out Peripheral arterial occlusive disease Shortness of breath Smoker Wears eyeglasses Home Medications diltiazem HCl 180 mg capsule,extended release 24 hr 180 mg PO DAILY BP 06/20/14 [History Last Taken 07/29/22] glucose 4 gram chewable tablet 4 g PO DAILY sugar 01/18/20 [History Last Taken 01/18/20] aspirin 81 mg tablet,delayed release (Adult Low Dose Aspirin) 81 mg PO DAILY SUPPLEMENT 05/02/22 [History Last Taken 07/28/22] cilostazol 50 mg tablet 50 mg PO DAILY BONE 07/15/22 [History Last Taken Unknown] clopidogrel 75 mg tablet 75 mg PO DAILY 90 days #90 tabs 08/03/22 [Rx Last Taken Unknown] guaifenesin 600 mg tablet, extended release 12 hr (Mucus Relief ER) 600 mg PO BID 30 days #60 tabs 08/03/22 [Rx Last Taken Unknown] tamsulosin 0.4 mg capsule 0.4 mg PO DAILY 30 days #30 caps 08/03/22 [Rx Last Taken Unknown] umeclidinium 62.5 mcg-vilanterol 25 mcg/actuation powdr for inhalation (Anoro Ellipta) 1 inh inhalation DAILY #30 days 08/03/22 [Rx Last Taken Unknown] albuterol sulfate 90 mcg/actuation aerosol inhaler 1 inh inhalation 08/20/22 [History Last Taken Unknown] rosuvastatin 20 mg tablet 20 mg PO DAILY 08/20/22 [History Last Taken Unknown] valsartan 320 mg-hydrochlorothiazide 12.5 mg tablet 1 tab PO DAILY 08/20/22 [History Last Taken Unknown] pantoprazole 40 mg tablet,delayed release 40 mg PO DAILY #90 tabs 08/26/22 [Rx Last Taken Unknown] rivaroxaban 2.5 mg tablet (Xarelto) 2.5 mg PO BID #60 tabs 09/03/22 [Rx Last Taken Unknown] rosuvastatin 10 mg tablet mg 01/18/23 [History Last Taken Unknown] Allergy/AdvReac Type Severity Reaction Status Date / Time ciprofloxacin HCl Allergy Severe Nausea Verified 08/26/22 12:51 [From Cipro] Family History Father Hypertension Cancer lung Other Osteoporosis Surgical History Hx of colonoscopy Hx of left cataract extraction Hx of right cataract extraction Status post peripheral artery angioplasty Social History Smoking Status: Current every day smoker tobacco type: cigarettes ROS ROS Narrative General: Denies fever/chills, does have low weight however HENT: Denies headache, denies stuffy nose, denies sore throat EYES: Denies changes in vision Resp: Baseline shortness of breath Cardiac: Denies chest pain GI: Epigastric abdominal pain that is burning in nature, denies changes in bowel, did have nausea with no vomiting earlier : Denies changes in urination Extremity: Denies swelling MSK: Generalized weakness Neuro: Denies any numbness/tingling Heme: Seems to have easy bruising Skin: Denies rashes Psychiatric: No complaints voiced Vital Signs Vital Signs Vital Signs: 01/18/23 11:32 01/18/23 11:48 01/18/23 13:16 Temperature 97.2 F L Temperature Source Temporal Pulse Rate 108 H 91 Respiratory Rate 20 H 18 Respiratory Effort Short of Breath Respiratory Pattern Normal Blood Pressure 66/49 L 87/73 L Blood Pressure Mean 54 77 Pulse Ox 96 94 Oxygen Delivery Method Room Air Nasal Cannula Oxygen Flow Rate (L/min) 2 Weight Weight: 41.8 kg Body Mass Index (BMI) 16.3 Physical Exam Narrative General: Alert, tired but no acute distress HEENT: Atraumatic, normocephalic Eyes: Anicteric, normal conjunctiva, extraocular movements grossly intact Neck: Supple Respiratory: Diminished airflow bilaterally, normal respiratory effort Cardiovascular: Regular rate GI: Soft, very thin, patient denies tenderness but did seem to have some pain on deep palpation in the epigastric region without any rebound, guarding, rigidity Extremities: No edema Musculoskeletal: Moving all extremities Neuro: No overt focal neurological deficits Skin: Scattered bruising Psych: Cooperative Results Lab / Micro Data 01/18/23 11:50 01/18/23 11:50 Labs: Laboratory Results - last 24 hr 01/18/23 11:50: WBC 8.9, RBC 1.86 L, Hgb 5.4 L*, Hct 18.3 L, MCV 98.4 H, MCH 29.0, MCHC 29.5 L, RDW Std Deviation 54.1 H, RDW Coeff of Barbara 15.7 H, Plt Count 316, MPV 10.3, Immature Gran % (Auto) 0.400, Neut % (Auto) 70.0, Lymph % (Auto) 20.9, [place]ferro % (Auto) 8.1, Eos % (Auto) 0.2, Baso % (Auto) 0.4, Absolute Neuts (auto) 6.2, Absolute Lymphs (auto) 1.86, Nucleated RBC % 0, Differential Comment SCANNED, Diff Path Review May foll, Hypochromasia 1+, Anisocytosis 2+, Microcytosis 1+, Macrocytosis 1+, PT 15.8 H, INR 1.3, APTT 27.4, Sodium 137, Potassium 4.5, Chloride 103, Carbon Dioxide 21.0, Anion Gap 13, BUN 68 H, Creatinine 1.93 H, Estim Creat Clear Calc 9.14, Est GFR (MDRD) Af Amer 44 L, Est GFR (MDRD) Non-Af 36 L, BUN/Creatinine Ratio 35.2 H, Glucose 131 H, Calcium 9.3, Total Bilirubin 0.30, Direct Bilirubin 0.15, AST 65 H, ALT 50, Alkaline Phosphatase 64, Troponin I High Sens 15, Total Protein 6.0 L, Albumin 2.7 L, Globulin 3.3 01/18/23 11:56: Lactic Acid 6.7 H* 01/18/23 12:40: Blood Type Cancelled, Antibody Screen Cancelled, Crossmatch See Detail 01/18/23 13:20: Crossmatch See Detail Micro: Microbiology 01/18/23 12:45 Stool Stool Occult Blood (BLESSING) - Final Radiology Impression Chest X-Ray 01/18/23 12:09 IMPRESSION: Degenerative changes, as described above. No demonstrated acute cardiopulmonary process. Electronically Signed: Crow Mcgregor MD at 12:43 EDT Reading Location ID and State: [address] [place] [address] , Service support , Assessment & Plan Assessment/Plan (1) Hypotension: (2) Anemia: PLAN: Plan #Acute on chronic anemia -Hemoglobin 5.4 in ED with last hemoglobin 11/27/2022 9.5 -Given dark stools with epigastric burning with BUN of 68 and progressive weakness and patient not taking PPI suspect upper GI bleed -Occult stool in ED negative however still feel this is the most likely source -3 units of blood ordered -Cycling H&H -Discussed with GI and GI consulted -Octreotide and PPI drips ordered per recommendation -Patient presently n.p.o. -Will get iron studies and reticulocyte count -No evidence to suggest hemolysis and no other complaints to point to other source of blood loss #Hypotension -Likely secondary to intravascular volume depletion whether from dehydration or blood loss are both -Continue IV fluids -We will transfuse -Patient to go to ICU #Lactic acidemia -Likely secondary to poor perfusion especially in light of his peripheral vascular disease -Lactic acid 6.7, patient receiving fluids, trend -No signs or symptoms of underlying infection and do not feel patient needs empiric antibiotic coverage at this time -Patient's anion gap 13 and bicarb within normal limits, suspect mixed acid-base picture #Elevated BUN and creatinine -Suspect BUN grossly elevated disproportionate to creatinine based on previous values secondary to upper GI bleed -Creatinine is elevated however at 1.93 with most recent creatinine 11/27/2022 being 1.51, prior to that baseline seemed closer to 1 -Suspect prerenal/due to decreased perfusion, continue fluids, patient for packed red blood cells #COPD -Reportedly supposed to be on home O2 but not wearing it -Having difficult time getting good pleth, will place on O2 -Nebs #Peripheral vascular disease -Statin -Has not been taking home medications per report, pending results and hemoglobin will need risk-benefit discussions moving forward #Tobacco use -Advise cessation -Patient has been cutting down significantly and only smokes around 2 cigarettes a day with plans to gradually quit this month, encouragement provided, patient does not feel he needs a nicotine patch #DVT ppx: SCDs Lizzy Meza MD Time spent in the patient's overall evaluation,decision-making process, review of diagnostic data, adjustment of management, discussion with other providers, nursing nursing and ancillary staff involved in patient's care documentation, 76 minutes Charges/Coding Visit Charges Inpatient E&M: 79231 Init Hosp L3
[2023-01-18 14:37] LABS: Magnesium 2.1 mg/dL (1.6-2.6)
[2023-01-18] MEDS: 0.9% Normal Saline 1,000 ML 150 ML IV (15:25)
[2023-01-18 15:30] LABS: Hematocrit 14.4 % (40-54); Mean Corp Hgb Conc 28.5 g/dL (32-36); Mean Corpuscular Hgb 28.1 pg (27.0-32.0); Mean Corpuscular Volume 98.6 fL (80-94); Mean Platelet Vol. 10.3 fl (6.2-12.0); POSITIVE COUNT YES; Platelet Count 230 K/mm3 (150-450); RBC Distribution Width CV 15.6 % (11.6-14.6); RBC Distribution Width SD 53.6 fl (35.1-43.9); RET-HE 28.7 pg (30-35); Red Blood Count 1.46 M/mm3 (4.6-6.2); Reticulocyte Count 4.88 % (0.5-1.5)
[2023-01-18 15:40] LABS: Hemoglobin 4.1 g/dL (13.0-16.5); Scan Indicated on CBC? Y/N YES- FLAGS NOTED
[2023-01-18 16:08] LABS: Reflex Lactate? Y
[2023-01-18 16:08] LABS: Ferritin 54 ng/mL (26-388); Iron 15 ug/dL (65-175); Iron Binding Capacity,Total 290 ug/dL (250-450); Lipase 37 U/L (13-75); PERCENT IRON SATURATION 5.2 % (15.0-55.0)
[2023-01-18 16:18] LABS: Differential Comment SEE COMMENTS
[2023-01-18 16:58] LABS: Lactic Acid 1.5 mmol/L (0.4-1.9)
[2023-01-18] MEDS: Petrolatum 33% Tube 1 APPLIC TOPICAL (18:08)
[2023-01-18] MEDS: Ipratropium/Albuterol Sulfate 3 ML AMPUL.NEB INHALATION (18:45)
[2023-01-18] MEDS: Atorvastatin Calcium 40 MG Tablet PO (21:22)
[2023-01-18] MEDS: MELATONIN 3 MG TABLET PO (21:23)
[2023-01-18] MEDS: Acetaminophen 325 MG Tablet 650 MG PO (21:23)
[2023-01-18 21:24] LABS: Bacteria 0 SEEN /hpf (None Seen); Mucous, Urine 0 SEEN /hpf (<or=2+); Red Blood Cells-Urine 0 SEEN /hpf (0-5); Squamous Epithelial Cells - UA 0 SEEN /hpf (0-5)
[2023-01-18 21:26] LABS: Color, Urine Yellow (Yellow); Glucose, Dipstick Normal (Normal); Ketone-Dipstick 5 mg/dl (Negative); Leukocyte Esterase-Dipstick 100 /ul (Negative); Nitrite-Dipstick Negative (Negative); Occult Blood-Urine 10 /ul (Negative); Protein-Dipstick Negative (Negative); Urine Bilirubin Dipstick Negative (Negative); Urine Clarity Sl. Cloudy (Clear); Urine Urobilinogen Normal (Normal)
[2023-01-18 21:34] LABS: White Blood Cells 0-5 SEEN /hpf (0-5)
[2023-01-18 21:35] LABS: Hyaline Cast 0-5 SEEN /lpf (0-5)
--- NOTE | 2023-01-18 23:00 | EX.PCM.CON.G ---
HPI Consult Data Date of Consult: 01/18/23 HPI Narrative Reason for Consultation: Anemia HPI Narrative: RYAN ESCOBAR, is a 72 M who presents with worsening shortness of breath. His hemoglobin was 13.4 on 07/18/22, then 9.4 on 07/29/22. He was hospitalized 07/29/22-08/03/22 following bilateral lower extremity vascular surgery for PAD. He is on aspirin 81 mg and clopidogrel. After surgery hemoglobin decreased to 7.4, he was given 1 unit PRBC, hgb was 8.5 at discharge. Nursing reported hematemesis. He was started on pantoprazole and sucralfate. Hgb 10.9 on 08/19/22. Hemoglobin noted to be 5.4 in the ED with a lactic acid of 6.7, patient was hypotensive with a BP of 66/49 on initial presentation. Patient had dark stool on exam in the ED but occult blood reported as negative. Hospitalist consulted for admission for his hypotension, anemia, elevated lactic acid. [facility] Medical History Acute respiratory failure with hypoxemia Alcohol abuse Back pain Chronic bullous emphysema COPD (chronic obstructive pulmonary disease) COPD exacerbation Edema Hard of hearing Head injury Heartburn High cholesterol History of stress test HTN (hypertension) Hypoglycemia Incidental pulmonary nodule, less than or equal to 3mm Leg cramps Leg pain Neuropathy Osteoporosis PAOD (peripheral arterial occlusive disease) Passed out Peripheral arterial occlusive disease Shortness of breath Smoker Wears eyeglasses Home Medications diltiazem HCl 180 mg capsule,extended release 24 hr 180 mg PO DAILY BP 06/20/14 [History Last Taken 07/29/22] glucose 4 gram chewable tablet 4 g PO DAILY sugar 01/18/20 [History Last Taken 01/18/20] aspirin 81 mg tablet,delayed release (Adult Low Dose Aspirin) 81 mg PO DAILY SUPPLEMENT 05/02/22 [History Last Taken 07/28/22] cilostazol 50 mg tablet 50 mg PO DAILY BONE 07/15/22 [History Last Taken Unknown] clopidogrel 75 mg tablet 75 mg PO DAILY 90 days #90 tabs 08/03/22 [Rx Last Taken Unknown] guaifenesin 600 mg tablet, extended release 12 hr (Mucus Relief ER) 600 mg PO BID 30 days #60 tabs 08/03/22 [Rx Last Taken Unknown] tamsulosin 0.4 mg capsule 0.4 mg PO DAILY 30 days #30 caps 08/03/22 [Rx Last Taken Unknown] umeclidinium 62.5 mcg-vilanterol 25 mcg/actuation powdr for inhalation (Anoro Ellipta) 1 inh inhalation DAILY #30 days 08/03/22 [Rx Last Taken Unknown] albuterol sulfate 90 mcg/actuation aerosol inhaler 1 inh inhalation 08/20/22 [History Last Taken Unknown] rosuvastatin 20 mg tablet 20 mg PO DAILY 08/20/22 [History Last Taken Unknown] valsartan 320 mg-hydrochlorothiazide 12.5 mg tablet 1 tab PO DAILY 08/20/22 [History Last Taken Unknown] pantoprazole 40 mg tablet,delayed release 40 mg PO DAILY #90 tabs 08/26/22 [Rx Last Taken Unknown] rivaroxaban 2.5 mg tablet (Xarelto) 2.5 mg PO BID #60 tabs 09/03/22 [Rx Last Taken Unknown] rosuvastatin 10 mg tablet mg 01/18/23 [History Last Taken Unknown] Allergy/AdvReac Type Severity Reaction Status Date / Time ciprofloxacin HCl Allergy Severe Nausea Verified 08/26/22 12:51 [From Cipro] Family History Father Hypertension Cancer lung Other Osteoporosis Surgical History Hx of colonoscopy Hx of left cataract extraction Hx of right cataract extraction Status post peripheral artery angioplasty Social History Smoking Status: Current every day smoker tobacco type: cigarettes ROS ROS Narrative 10 systems were reviewed with pertinent positives as noted in the HPI above. Physical Exam Narrative General: Alert, oriented, no acute distress HEENT: Atraumatic, normocephalic Eyes: Anicteric, normal conjunctiva, extraocular movements grossly intact Neck: Supple Respiratory: No overt wheezes or rhonchi, normal respiratory effort Cardiovascular: Regular rate GI: Soft, very thin, no tenderness Extremities: No edema Musculoskeletal: Moving all extremities Neuro: No overt focal neurological deficits Skin: Scattered bruising Psych: Cooperative Medical Records Data Medical Nutrition Assessment Dietitian: Malnutrition Criteria Met Start: 01/19/23 11:19 Freq: Status: Active Protocol: Document 01/19/23 11:23 [facility] (Rec: 01/19/23 11:23 [facility] [email or web address]) Nutrition Malnutrition Evidence of Malnutrition Exists Yes Malnutrition (severe): Chronic Evidenced By Suboptimal Energy Intake ( Severe),Weight Loss (Severe), Physical Changes (Severe) Clinical Problem Chronic Disease or Condition Related Malnutrition Etiology related to inadequate energy intake Signs/Symptoms as evidenced by 23.2% unintended wt loss x 6 mo, po intake <50% of est nutritional needs x more than one month, obvious fat/muscle loss throughout body and BMI <16 Status Active Problem Recommendation Dietitian Recommendations/Changes As medically able, rec QUENTIN to liberal regular d/t signs and symptoms of malnutrition As medically able, rec chocolate ensure plus high protein 4x/day w/ medpass for increased nutrition if consumed As medically able, rec chocolate magic cup w/ lunch and dinner for increased nutrition if consumed Monitor for s/s of refeeding syndrome Lab / Micro Data 01/19/23 06:17 01/19/23 02:00 Labs: Laboratory Results - last 24 hr 01/18/23 11:50: WBC 8.9, RBC 1.86 L, Hgb 5.4 L*, Hct 18.3 L, MCV 98.4 H, MCH 29.0, MCHC 29.5 L, RDW Std Deviation 54.1 H, RDW Coeff of Barbara 15.7 H, Plt Count 316, MPV 10.3, Immature Gran % (Auto) 0.400, Neut % (Auto) 70.0, Lymph % (Auto) 20.9, Forrest % (Auto) 8.1, Eos % (Auto) 0.2, Baso % (Auto) 0.4, Absolute Neuts (auto) 6.2, Absolute Lymphs (auto) 1.86, Nucleated RBC % 0, Differential Comment SCANNED, Diff Path Review May foll, Hypochromasia 1+, Anisocytosis 2+, Microcytosis 1+, Macrocytosis 1+, PT 15.8 H, INR 1.3, APTT 27.4, Sodium 137, Potassium 4.5, Chloride 103, Carbon Dioxide 21.0, Anion Gap 13, BUN 68 H, Creatinine 1.93 H, Estim Creat Clear Calc 9.14, Est GFR (MDRD) Af Amer 44 L, Est GFR (MDRD) Non-Af 36 L, BUN/Creatinine Ratio 35.2 H, Glucose 131 H, Calcium 9.3, Magnesium 2.1, Total Bilirubin 0.30, Direct Bilirubin 0.15, AST 65 H, ALT 50, Alkaline Phosphatase 64, Troponin I High Sens 15, Total Protein 6.0 L, Albumin 2.7 L, Globulin 3.3 01/18/23 11:56: Lactic Acid 6.7 H* 01/18/23 12:40: Blood Type Cancelled, Antibody Screen Cancelled, Crossmatch See Detail 01/18/23 13:20: Blood Type O POSITIVE, Antibody Screen NEGATIVE, Crossmatch See Detail 01/18/23 13:20: Crossmatch See Detail 01/18/23 15:20: WBC 7.0, RBC 1.46 L, Hgb 4.1 L*, Hct 14.4 L, MCV 98.6 H, MCH 28.1, MCHC 28.5 L, RDW Std Deviation 53.6 H, RDW Coeff of Barbara 15.6 H, Plt Count 230, MPV 10.3, Differential Comment SEE COMMENTS, Retic Count 4.88 H, Immature Retic Fraction 30.20 H, Retic Hgb Equivalent 28.7 L, Iron 15 L, TIBC 290, Iron Saturation 5.2 L, Ferritin 54, Lipase 37, Folate 9.60 01/18/23 16:23: Lactic Acid 1.5 01/18/23 21:15: Urine Color Yellow, Urine Clarity Sl. Cloudy, Urine pH 5.0, Ur Specific [place] 1.020, Urine Protein Negative, Urine Glucose (UA) Normal, Urine Ketones 5 H, Urine Occult Blood 10 H, Urine Nitrite Negative, Urine Bilirubin Negative, Urine Urobilinogen Normal, Ur Leukocyte Esterase 100 H, Urine RBC 0 SEEN, Urine WBC 0-5 SEEN, Ur Squamous Epith Cells 0 SEEN, Urine Bacteria 0 SEEN, Hyaline Casts 0-5 SEEN, Urine Mucus 0 SEEN 01/19/23 02:00: WBC 5.7, RBC 2.83 L, Hgb 8.1 L, Hct 26.3 L, MCV 92.9 D, MCH 28.6, MCHC 30.8 L D, RDW Std Deviation 52.1 H, RDW Coeff of Barbara 15.7 H, Plt Count 163, MPV 10.1, Sodium 136, Potassium 4.3, Chloride 109 H, Carbon Dioxide 21.0, Anion Gap 6, BUN 56 H, Creatinine 1.66 H, Estim Creat Clear Calc 22.46, Est GFR (MDRD) Af Amer 52 L, Est GFR (MDRD) Non-Af 43 L, BUN/Creatinine Ratio 33.7 H, Glucose 109 H, Calcium 7.9 L, Magnesium 1.7, Total Bilirubin 0.60, AST 123 H, ALT 120 H, Alkaline Phosphatase 52, Total Protein 4.9 L, Albumin 2.3 L, Globulin 2.6, Albumin/Globulin Ratio 0.9, TSH 0.82 01/19/23 06:17: WBC 4.3 L, RBC 2.07 L, Hgb 6.0 L*, Hct 19.2 L, MCV 92.8, MCH 29.0, MCHC 31.3 L, RDW Std Deviation 52.5 H, RDW Coeff of Barbara 15.7 H, Plt Count 119 L, MPV 10.0, Immature Gran % (Auto) 0.200, Neut % (Auto) 73.8 H, Lymph % (Auto) 14.5 L, Forrest % (Auto) 8.3, Eos % (Auto) 3.0, Baso % (Auto) 0.2, Absolute Neuts (auto) 3.2, Absolute Lymphs (auto) 0.63 L, Nucleated RBC % 0, Differential Comment SCANNED, Diff Path Review September Micro: Microbiology 01/18/23 12:45 Stool Stool Occult Blood (BLESSING) - Final Radiology Impression Chest X-Ray 01/18/23 12:09 IMPRESSION: Degenerative changes, as described above. No demonstrated acute cardiopulmonary process. Electronically Signed: Crow Mcgregor MD at 12:43 EDT , Assessment & Plan Assessment/Plan (1) Anemia: QUALIFIERS: Anemia type: iron deficiency Iron deficiency anemia type: chronic blood loss Qualified Code(s): D50.0 - Iron deficiency anemia secondary to blood loss (chronic) (2) Hypotension: QUALIFIERS: Hypotension type: idiopathic hypotension Qualified Code(s): I95.0 - Idiopathic hypotension (3) Acidosis, lactic: PLAN: Plan 71 yr old male with anemia; he had bilat LE vascular surgery, had hematemesis while hospitalized, hgb decreased to low of 7.4, received 1 unit PRBC, he is on PPI now, he is on ASA and plavix. No further evidence of GIB. Hgb went up to 10.9. Currently his hemoglobin is 5.4. -Anemia- I suspect CATA from Chronic blood loss anemia. I suspect it is an upper GI bleed because of his COPD, PAD and the use of antiplatelets and anticoagulants. We will perform an upper endoscopy and possibly a colonoscopy. -Continue Octreotide and PPI Drip -Monitor h/h -Keep hematocrit > 35 Charges/Coding Visit Charges Inpatient E&M: 40414 Subs Hosp L3
[2023-01-19] VITALS (37 sets, daily range): BP systolic 99–142; BP diastolic 55–86; PULSE 57–88; RESP 13–25; TEMP 36.2–38.2; O2SAT 90–100
[2023-01-19 02:11] LABS: Hematocrit 26.3 % (40-54); Hemoglobin 8.1 g/dL (13.0-16.5); Mean Corp Hgb Conc 30.8 g/dL (32-36); Mean Corpuscular Hgb 28.6 pg (27.0-32.0); Mean Corpuscular Volume 92.9 fL (80-94); Mean Platelet Vol. 10.1 fl (6.2-12.0); Platelet Count 163 K/mm3 (150-450); RBC Distribution Width CV 15.7 % (11.6-14.6); RBC Distribution Width SD 52.1 fl (35.1-43.9); Red Blood Count 2.83 M/mm3 (4.6-6.2); White Blood Count 5.7 K/mm3 (4.4-11.0)
[2023-01-19 02:59] LABS: ALB/GLOB Ratio 0.9 RATIO (0.9-2.4); AST(SGOT) 123 U/L (15-37); Alanine Aminotransfer ALT/SGPT 120 U/L (16-61); Albumin, Serum 2.3 g/dL (3.2-5.0); Alkaline Phosphatase 52 U/L (45-117); Anion Gap 6 (5-15); BUN 56 mg/dL (7-18); BUN/Creat Ratio 33.7 RATIO (10-20); Calcium,Total 7.9 mg/dL (8.5-10.1); Chloride 109 mmol/L (98-107); Creatinine, Serum 1.66 mg/dL (0.70-1.30); EST Glomerular Filtration Rate 43 mL/min (>60); Est Glom Filt Rate - Afr Amer 52 mL/min (>60); Estimated Creatinine Clearance 22.46 ml/min; Globulin 2.6 g/dL (2.2-4.2); Glucose 109 mg/dL (74-106); Magnesium 1.7 mg/dL (1.6-2.6); Potassium 4.3 mmol/L (3.5-5.1); Protein, Total 4.9 g/dL (6.4-8.2); Sodium Level 136 mmol/L (136-145); Thyroid Stim Hormone (TSH) 0.82 uIU/mL (0.358-3.74)
[2023-01-19] MEDS: 0.9% Normal Saline 1,000 ML 150 ML IV (04:08)
[2023-01-19] MEDS: 0.9% Saline Lock 10 ML Syringe IV ×2 (04:08→15:35)
[2023-01-19 06:37] LABS: Absolute Lymphocyte Count 0.63 X10^3/uL (0.83-4.51); Absolute Neutrophil Count 3.2 X10^3/uL (2.0-7.7); Basophil# 0.01 X10^3/uL; Basophil% 0.2 % (0-1); Eosinophil# 0.13 X10^3/uL; Hematocrit 19.2 % (40-54); Lymphocyte # 0.63 X10^3/ul (0.83-4.51); Lymphocyte % 14.5 % (19-41); Mean Corp Hgb Conc 31.3 g/dL (32-36); Mean Corpuscular Volume 92.8 fL (80-94); Monocyte# 0.36 X10^3/uL; Monocyte% 8.3 % (0-10); NRBC Flagged by Analyzer 0 % (0-5); Neutrophil % 73.8 % (47-70); Platelet Count 119 K/mm3 (150-450); RBC Distribution Width CV 15.7 % (11.6-14.6); RBC Distribution Width SD 52.5 fl (35.1-43.9); Red Blood Count 2.07 M/mm3 (4.6-6.2); White Blood Count 4.3 K/mm3 (4.4-11.0)
[2023-01-19 06:42] LABS: Differential Indicated SCAN CRITERIA MET
--- NOTE | 2023-01-19 07:10 | CON.PCM.CC_ITS ---
Assessment & Plan Assessment/Plan (1) Anemia: PLAN: Plan RECOMMENDATIONS: 1. Transfuse 2 additional units of packed red blood cells. 2. Check H&H posttransfusion. 3. Await gastroenterology evaluation and endoscopic evaluation. 4. Continue octreotide and PPI therapy. 5. Continue as needed bronchodilator therapy. 6. Wean supplemental oxygen to maintain saturations at or above 90%. IMPRESSIONS: 1. Acute blood loss anemia The patient presented to the hospital with abdominal discomfort and generalized weakness in the setting of acute blood loss anemia. He has been transfused blood products as ordered. Plan to continue to monitor H&H and transfuse if hemoglobin continues to be below 7 g/dL. The patient remains on octreotide and PPI therapy. Gastroenterology consultation is pending. There are tentative plans for endoscopic evaluation later this morning. At the present time, the patient is hemodynamically stable, without the need for vasopressor support. 2. Acute kidney injury Most likely prerenal in the etiology in the setting of tissue hypoperfusion due to #1. Plan to continue to monitor urine output for now. No current indication for renal replacement therapy. 3. History of COPD/peripheral vascular disease/tobacco dependency/hyperlipidemia Complicates care, management, recovery and prognosis. Continue supportive care along with scheduled bronchodilator therapy. This note was generated with [employer] dictation software. It may contain incorrect words, spelling, and punctuation that were not noted in checking the note before signing. HPI Consult Data Date of Consult: 01/20/23 HPI Narrative Reason for Consultation: Blood loss anemia HPI Narrative: The patient is a 72-year-old male, with a history as outlined below, who presented to the emergency department via EMS on January 18 with generalized weakness and abdominal discomfort. The patient has a medical history significant for peripheral vascular disease, COPD and hypertension. On presentation to the emergency department, the patient was noted to be afebrile, but was hypotensive with a blood pressure of 66/49 mmHg. Initial laboratory evaluation revealed no evidence of a leukocytosis. However, hemoglobin was noted to be 5.4 g/dL, down from 9.5 g/dL in November 2022. Chemistry profile was notable for a creatinine of 1.93. Lactate was elevated at 6.7. Urine analysis was noncontributory. The patient underwent type and screen and was transfused 3 units of packed red blood cells. He was subsequently admitted to the medical intensive care unit for further management. At the present time, the patient is hemodynamically stable. He has not required vasopressor support. He remains on a continuous PPI infusion along with octreotide. There are tentative plans for endoscopic evaluation by gastroente rology later this morning. The patient denies any ongoing abdominal discomfort or pain. [facility] Medical History Acute respiratory failure with hypoxemia Alcohol abuse Back pain Chronic bullous emphysema COPD (chronic obstructive pulmonary disease) COPD exacerbation Edema Hard of hearing Head injury Heartburn High cholesterol History of stress test HTN (hypertension) Hypoglycemia Incidental pulmonary nodule, less than or equal to 3mm Leg cramps Leg pain Neuropathy Osteoporosis PAOD (peripheral arterial occlusive disease) Passed out Peripheral arterial occlusive disease Shortness of breath Smoker Wears eyeglasses Home Medications diltiazem HCl 180 mg capsule,extended release 24 hr 180 mg PO DAILY BP 06/20/14 [History Last Taken 07/29/22] glucose 4 gram chewable tablet 4 g PO DAILY sugar 01/18/20 [History Last Taken 01/18/20] aspirin 81 mg tablet,delayed release (Adult Low Dose Aspirin) 81 mg PO DAILY SUPPLEMENT 05/02/22 [History Last Taken 07/28/22] cilostazol 50 mg tablet 50 mg PO DAILY BONE 07/15/22 [History Last Taken Unknow n] clopidogrel 75 mg tablet 75 mg PO DAILY 90 days #90 tabs 08/03/22 [Rx Last Taken Unknown] guaifenesin 600 mg tablet, extended release 12 hr (Mucus Relief ER) 600 mg PO BID 30 days #60 tabs 08/03/22 [Rx Last Taken Unknown] tamsulosin 0.4 mg capsule 0.4 mg PO DAILY 30 days #30 caps 08/03/22 [Rx Last Taken Unknown] umeclidinium 62.5 mcg-vilanterol 25 mcg/actuation powdr for inhalation (Anoro Ellipta) 1 inh inhalation DAILY #30 days 08/03/22 [Rx Last Taken Unknown] albuterol sulfate 90 mcg/actuation aerosol inhaler 1 inh inhalation 08/20/22 [History Last Taken Unknown] rosuvastatin 20 mg tablet 20 mg PO DAILY 08/20/22 [History Last Taken Unknown] valsartan 320 mg-hydrochlorothiazide 12.5 mg tablet 1 tab PO DAILY 08/20/22 [History Last Taken Unknown] pantoprazole 40 mg tablet,delayed release 40 mg PO DAILY #90 tabs 08/26/22 [Rx Last Taken Unknown] rivaroxaban 2.5 mg tablet (Xarelto) 2.5 mg PO BID #60 tabs 09/03/22 [Rx Last Taken Unknown] rosuvastatin 10 mg tablet mg 01/18/23 [History Last Taken Unknown] Allergy/AdvReac Type Severity Reaction Status Date / Time ciprofloxacin HCl Allergy Severe Nausea Verified 08/26/22 12:51 [From Cipro] Family History Father Hypertension Cancer lung Other Osteoporosis Surgical History Hx of colonoscopy Hx of left cataract extraction Hx of right cataract extraction Status post peripheral artery angioplasty Social History Smoking Status: Current every day smoker tobacco type: cigarettes ROS ROS Narrative 10 systems were reviewed with pertinent positives as noted in the HPI above. Physical Exam Const alert and no apparent distress General Appearance: cooperative HEENT normocephalic and head/scalp atraumatic Eyes PERRL, EOMs intact bilaterally and conjunctivae normal Neck supple General: trachea midline Resp normal respiratory effort Auscultation: diminished lung sounds Cardio regular rate and regular rhythm GI normal to inspection, nondistended, normoactive bowel sounds Extremity no clubbing, cyanosis or edema Skin no rashes or lesions noted Neuro oriented x3, CN's II-XII intact bilaterally and moves all extremities Psych cooperative and affect normal Lab / Micro Data 01/20/23 03:45 01/20/23 03:45 Labs: Laboratory Results - last 24 hr 01/18/23 11:50: WBC 8.9, RBC 1.86 L, Hgb 5.4 L*, Hct 18.3 L, MCV 98.4 H, MCH 29.0, MCHC 29.5 L, RDW Std Deviation 54.1 H, RDW Coeff of Barbara 15.7 H, Plt Count 316, MPV 10.3, Immature Gran % (Auto) 0.400, Neut % (Auto) 70.0, Lymph % (Auto) 20.9, [place] % (Auto) 8.1, Eos % (Auto) 0.2, Baso % (Auto) 0.4, Absolute Neuts (auto) 6.2, Absolute Lymphs (auto) 1.86, Nucleated RBC % 0, Differential Comment SCANNED, Diff Path Review May , Hypochromasia 1+, Anisocytosis 2+, Microcytosis 1+, Macrocytosis 1+, PT 15.8 H, INR 1.3, APTT 27.4, Sodium 137, Potassium 4.5, Chloride 103, Carbon Dioxide 21.0, Anion Gap 13, BUN 68 H, Creatinine 1.93 H, Estim Creat Clear Calc 9.14, Est GFR (MDRD) Af Amer 44 L, Est GFR (MDRD) Non-Af 36 L, BUN/Creatinine Ratio 35.2 H, Glucose 131 H, Calcium 9.3, Magnesium 2.1, Total Bilirubin 0.30, Direct Bilirubin 0.15, AST 65 H, ALT 50, Alkaline Phosphatase 64, Troponin I High Sens 15, Total Protein 6.0 L, Albumin 2.7 L, Globulin 3.3 01/18/23 11:56: Lactic Acid 6.7 H* 01/18/23 12:40: Blood Type Cancelled, Antibody Screen Cancelled, Crossmatch See Detail 01/18/23 13:20: Blood Type O POSITIVE, Antibody Screen NEGATIVE, Crossmatch See Detail 01/18/23 13:20: Crossmatch See Detail 01/18/23 15:20: WBC 7.0, RBC 1.46 L, Hgb 4.1 L*, Hct 14.4 L, MCV 98.6 H, MCH 28.1, MCHC 28.5 L, RDW Std Deviation 53.6 H, RDW Coeff of Barbara 15.6 H, Plt Count 230, MPV 10.3, Differential Comment SEE COMMENTS, Retic Count 4.88 H, Immature Retic Fraction 30.20 H, Retic Hgb Equivalent 28.7 L, Iron 15 L, TIBC 290, Iron Saturation 5.2 L, Ferritin 54, Lipase 37, Folate 9.60 01/18/23 16:23: Lactic Acid 1.5 01/18/23 21:15: Urine Color Yellow, Urine Clarity Sl. Cloudy, Urine pH 5.0, Ur Specific [place] 1.020, Urine Protein Negative, Urine Glucose (UA) Normal, Urine Ketones 5 H, Urine Occult Blood 10 H, Urine Nitrite Negative, Urine Bilirubin Negative, Urine Urobilinogen Normal, Ur Leukocyte Esterase 100 H, Urine RBC 0 SEEN, Urine WBC 0-5 SEEN, Ur Squamous Epith Cells 0 SEEN, Urine Bacteria 0 SEEN, Hyaline Casts 0-5 SEEN, Urine Mucus 0 SEEN 01/19/23 02:00: WBC 5.7, RBC 2.83 L, Hgb 8.1 L, Hct 26.3 L, MCV 92.9 D, MCH 28.6, MCHC 30.8 L D, RDW Std Deviation 52.1 H, RDW Coeff of Barbara 15.7 H, Plt Count 163, MPV 10.1, Sodium 136, Potassium 4.3, Chloride 109 H, Carbon Dioxide 21.0, Anion Gap 6, BUN 56 H, Creatinine 1.66 H, Estim Creat Clear Calc 22.46, Est GFR (MDRD) Af Amer 52 L, Est GFR (MDRD) Non-Af 43 L, BUN/Creatinine Ratio 33.7 H, Glucose 109 H, Calcium 7.9 L, Magnesium 1.7, Total Bilirubin 0.60, AST 123 H, ALT 120 H, Alkaline Phosphatase 52, Total Protein 4.9 L, Albumin 2.3 L, Globulin 2.6, Albumin/Globulin Ratio 0.9, TSH 0.82 01/19/23 06:17: WBC 4.3 L, RBC 2.07 L, Hgb 6.0 L*, Hct 19.2 L, MCV 92.8, MCH 29.0, MCHC 31.3 L, RDW Std Deviation 52.5 H, RDW Coeff of Barbara 15.7 H, Plt Count 119 L, MPV 10.0, Immature Gran % (Auto) 0.200, Neut % (Auto) 73.8 H, Lymph % (Auto) 14.5 L, [place] % (Auto) 8.3, Eos % (Auto) 3.0, Baso % (Auto) 0.2, Absolute Neuts (auto) 3.2, Absolute Lymphs (auto) 0.63 L, Nucleated RBC % 0 Micro: Microbiology 01/18/23 12:45 Stool Stool Occult Blood (BLESSING) - Final Radiology Impression Chest X-Ray 01/18/23 12:09 IMPRESSION: Degenerative changes, as described above. No demonstrated acute cardiopulmonary process. Electronically Signed: Crow Mcgregor MD at 12:43 EDT , Charges/Coding Visit Charges Inpatient E&M: 40715 Init Hosp L3
[2023-01-19] MEDS: Ipratropium/Albuterol Sulfate 3 ML AMPUL.NEB INHALATION ×4 (07:16→19:14)
[2023-01-19 08:20] LABS: Differential Comment SCANNED
--- NOTE | 2023-01-19 08:48 | PCM.PN.HOSP ---
Reason for Visit Reason for Visit: Diagnoses Anemia, unspecified (01/18/23) Hypotension, unspecified (01/18/23) Subjective Subjective Patient feeling much better than yesterday, feels he might of had a dark bowel movement last night but no bright red blood that he is passing, breathing baseline Objective Data Objective Data Vital Signs: Vital Signs Temp Pulse Resp BP Pulse Ox O2 Del Method O2 Flow Rate 98.4 F 82 15 126/64 H 100 Nasal Cannula 2 01/19/23 08:00 01/19/23 08:00 01/19/23 08:00 01/19/23 08:00 01/19/23 08:00 01/19/23 08:00 01/19/23 08:00 Oxygen Flow Rate (L/min) 2 Oxygen Delivery Method Nasal Cannula Weight: 40.058 kg Body Mass Index (BMI) 15.6 Intake & Output: Intake and Output for Last 24 Hours 01/17/23 01/18/23 01/19/23 23:59 23:59 23:59 Intake Total 3609.21 / 3609.21 877.0 / 877.0 Output Total 200 / 200 350 / 350 Balance 3409.21 / 3409.21 527.0 / 527.0 Lab / Micro Data 01/19/23 06:17 01/19/23 02:00 Labs: Laboratory Results - last 24 hr 01/18/23 11:50: WBC 8.9, RBC 1.86 L, Hgb 5.4 L*, Hct 18.3 L, MCV 98.4 H, MCH 29.0, MCHC 29.5 L, RDW Std Deviation 54.1 H, RDW Coeff of Barbara 15.7 H, Plt Count 316, MPV 10.3, Immature Gran % (Auto) 0.400, Neut % (Auto) 70.0, Lymph % (Auto) 20.9, [place] % (Auto) 8.1, Eos % (Auto) 0.2, Baso % (Auto) 0.4, Absolute Neuts (auto) 6.2, Absolute Lymphs (auto) 1.86, Nucleated RBC % 0, Differential Comment SCANNED, Diff Path Review May foll, Hypochromasia 1+, Anisocytosis 2+, Microcytosis 1+, Macrocytosis 1+, PT 15.8 H, INR 1.3, APTT 27.4, Sodium 137, Potassium 4.5, Chloride 103, Carbon Dioxide 21.0, Anion Gap 13, BUN 68 H, Creatinine 1.93 H, Estim Creat Clear Calc 9.14, Est GFR (MDRD) Af Amer 44 L, Est GFR (MDRD) Non-Af 36 L, BUN/Creatinine Ratio 35.2 H, Glucose 131 H, Calcium 9.3, Magnesium 2.1, Total Bilirubin 0.30, Direct Bilirubin 0.15, AST 65 H, ALT 50, Alkaline Phosphatase 64, Troponin I High Sens 15, Total Protein 6.0 L, Albumin 2.7 L, Globulin 3.3 01/18/23 11:56: Lactic Acid 6.7 H* 01/18/23 12:40: Blood Type Cancelled, Antibody Screen Cancelled, Crossmatch See Detail 01/18/23 13:20: Blood Type O POSITIVE, Antibody Screen NEGATIVE, Crossmatch See Detail 01/18/23 13:20: Crossmatch See Detail 01/18/23 15:20: WBC 7.0, RBC 1.46 L, Hgb 4.1 L*, Hct 14.4 L, MCV 98.6 H, MCH 28.1, MCHC 28.5 L, RDW Std Deviation 53.6 H, RDW Coeff of Barbara 15.6 H, Plt Count 230, MPV 10.3, Differential Comment SEE COMMENTS, Retic Count 4.88 H, Immature Retic Fraction 30.20 H, Retic Hgb Equivalent 28.7 L, Iron 15 L, TIBC 290, Iron Saturation 5.2 L, Ferritin 54, Lipase 37, Folate 9.60 01/18/23 16:23: Lactic Acid 1.5 01/18/23 21:15: Urine Color Yellow, Urine Clarity Sl. Cloudy, Urine pH 5.0, Ur Specific [place] 1.020, Urine Protein Negative, Urine Glucose (UA) Normal, Urine Ketones 5 H, Urine Occult Blood 10 H, Urine Nitrite Negative, Urine Bilirubin Negative, Urine Urobilinogen Normal, Ur Leukocyte Esterase 100 H, Urine RBC 0 SEEN, Urine WBC 0-5 SEEN, Ur Squamous Epith Cells 0 SEEN, Urine Bacteria 0 SEEN, Hyaline Casts 0-5 SEEN, Urine Mucus 0 SEEN 01/19/23 02:00: WBC 5.7, RBC 2.83 L, Hgb 8.1 L, Hct 26.3 L, MCV 92.9 D, MCH 28.6, MCHC 30.8 L D, RDW Std Deviation 52.1 H, RDW Coeff of Barbara 15.7 H, Plt Count 163, MPV 10.1, Sodium 136, Potassium 4.3, Chloride 109 H, Carbon Dioxide 21.0, Anion Gap 6, BUN 56 H, Creatinine 1.66 H, Estim Creat Clear Calc 22.46, Est GFR (MDRD) Af Amer 52 L, Est GFR (MDRD) Non-Af 43 L, BUN/Creatinine Ratio 33.7 H, Glucose 109 H, Calcium 7.9 L, Magnesium 1.7, Total Bilirubin 0.60, AST 123 H, ALT 120 H, Alkaline Phosphatase 52, Total Protein 4.9 L, Albumin 2.3 L, Globulin 2.6, Albumin/Globulin Ratio 0.9, TSH 0.82 01/19/23 06:17: WBC 4.3 L, RBC 2.07 L, Hgb 6.0 L*, Hct 19.2 L, MCV 92.8, MCH 29.0, MCHC 31.3 L, RDW Std Deviation 52.5 H, RDW Coeff of Barbara 15.7 H, Plt Count 119 L, MPV 10.0, Immature Gran % (Auto) 0.200, Neut % (Auto) 73.8 H, Lymph % (Auto) 14.5 L, [place] % (Auto) 8.3, Eos % (Auto) 3.0, Baso % (Auto) 0.2, Absolute Neuts (auto) 3.2, Absolute Lymphs (auto) 0.63 L, Nucleated RBC % 0, Differential Comment SCANNED, Diff Path Review September Micro: Microbiology 01/18/23 12:45 Stool Stool Occult Blood (BLESSING) - Final Radiography Diagnostic Testing: Radiology Impression Chest X-Ray 01/18/23 12:09 IMPRESSION: Degenerative changes, as described above. No demonstrated acute cardiopulmonary process. Electronically Signed: Crow Mcgregor MD at 12:43 EDT , Physical Exam Narrative General: Alert, oriented, no acute distress HEENT: Atraumatic, normocephalic Eyes: Anicteric, normal conjunctiva, extraocular movements grossly intact Neck: Supple Respiratory: No overt wheezes or rhonchi, normal respiratory effort Cardiovascular: Regular rate GI: Soft, very thin, no tenderness Extremities: No edema Musculoskeletal: Moving all extremities Neuro: No overt focal neurological deficits Skin: Scattered bruising Psych: Cooperative Assessment & Plan Assessment/Plan (1) Hypotension: (2) Anemia: PLAN: Plan #Acute on chronic anemia -Hemoglobin 5.4 in ED with last hemoglobin 11/27/2022 9.5 -Given dark stools with epigastric burning with BUN of 68 and progressive weakness and patient not taking PPI suspect upper GI bleed -Occult stool in ED negative however still feel this is the most likely source -3 units of blood ordered -Cycling H&H -Discussed with GI and GI consulted -Octreotide and PPI drips ordered per recommendation -Patient presently n.p.o. -Will get iron studies and reticulocyte count -No evidence to suggest hemolysis and no other complaints to point to other source of blood loss -01/19: Hemoglobin down trended to 4.1 yesterday before blood was given, patient given 3 units of blood yesterday with improvement 8.1, 2 more units to be given today due to hemoglobin down to 6, pending endoscopy and GI consult, continue octreotide and pantoprazole #Hypotension?resolved -Likely secondary to intravascular volume depletion whether from dehydration or blood loss are both -Continue IV fluids -We will transfuse -Patient to go to ICU -01/19: Patient still anemic but BP and clinical status significantly improved with blood and fluids #Lactic acidemia?resolved -Likely secondary to poor perfusion especially in light of his peripheral vascular disease -Lactic acid 6.7, patient receiving fluids, trend -No signs or symptoms of underlying infection and do not feel patient needs empiric antibiotic coverage at this time -Patient's anion gap 13 and bicarb within normal limits, suspect mixed acid-base picture -01/19: Resolved with fluids #Elevated BUN and creatinine -Suspect BUN grossly elevated disproportionate to creatinine based on previous values secondary to upper GI bleed -Creatinine is elevated however at 1.93 with most recent creatinine 11/27/2022 being 1.51, prior to that baseline seemed closer to 1 -Suspect prerenal/due to decreased perfusion, continue fluids, patient for packed red blood cells -01/19: Improving, continue current management #COPD -Reportedly supposed to be on home O2 but not wearing it -Having difficult time getting good pleth, will place on O2 -Nebs #Peripheral vascular disease -Statin -Has not been taking home medications per report, pending results and hemoglobin will need risk-benefit discussions moving forward #Tobacco use -Advise cessation -Patient has been cutting down significantly and only smokes around 2 cigarettes a day with plans to gradually quit this month, encouragement provided, patient does not feel he needs a nicotine patch #DVT ppx: SCDs Lizzy Meza MD Time spent in the patient's overall evaluation,decision-making process, review of diagnostic data, adjustment of management, discussion with other providers, nursing nursing and ancillary staff involved in patient's care documentation, 40 minutes Charges/Coding Visit Charges Inpatient E&M: 05517 Subs Hosp L2
--- NOTE | 2023-01-19 09:34 | NURSING ---
off floor to endo at this time
--- NOTE | 2023-01-19 11:01 | CT_ITS ---
STUDY: CTA OF THE ABDOMEN AND PELVIS REASON FOR EXAM: Male, 72 years old. GI bleeding RADIATION DOSAGE (If Supplied By Facility): CTDIvol = ( 17.28 ) mGy, DLP = ( 270.19 ) mGycm TECHNIQUE: Axial CT angiography multi-detector data acquisition was obtained from the to the following intravenous administration of IV 100mL Isovue-[id number]. Axial images and MIP images were reconstructed from the axial data set. Post-processing of the angiographic images was performed, with multiplanar reformation and 3D reconstruction. Individualized dose optimization techniques were used for this CT. TECHNICAL QUALITY: Good COMPARISON: None. Descriptors of Narrowing: None (0%) Mild (< 50%) Moderate (50-70%) Severe (70-90%) Subtotal/Total Occlusion (90-100%) Non-Evaluable (technically non-diagnostic FINDINGS: Diffuse atherosclerotic plaque throughout the abdominal aorta and its branches. Abdominal aorta: There is mild diffuse narrowing. Celiac and superior mesenteric arteries: Moderate atherosclerotic plaque formation and narrowing at the origins of both the celiac and superior mesenteric arteries. Mild to moderate mural thrombus and calcified plaque is present in the middle one third aspect superior mesenteric artery. Inferior mesenteric artery: There is severe diffuse narrowing. Right renal artery(arteries): Vascular stent is present at the origin of the right renal artery with mild IntraStent stenosis. Left renal artery(arteries): Moderate to severe atherosclerotic plaque and stenosis of the origin of the left renal artery. Right common iliac artery: Vascular stents/endograft material with mild stenosis of the lumen. Right external iliac artery: There is moderate diffuse narrowing. Right internal iliac artery: There is severe diffuse narrowing. 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 Vascular stent is completely occluded with thrombus. Left external iliac artery: Completely occluded Left internal iliac artery: Completely occluded with severe atherosclerotic calcified plaque. Bifemoral bypass graft is widely patent and normally opacified. The bypass graft terminates below the left common femoral artery/profundus junction. [place] left common femoral artery is completely occluded. Mild atherosclerotic plaque and luminal stenosis of the right common femoral artery. There is no demonstrated arterial extravasation into the bowel loops on this study that would indicate active GI bleeding. No high density fluid collections are seen within the bowel loops on the current study. A nuclear medicine RBC scan can be obtained if there is continued concern for GI bleeding. NONVASCULAR FINDINGS: Diffuse body wall edema/anasarca. Diffuse mesenteric edema and a small amount of abdominal and pelvic ascites. Mild edema is seen in the august[place] of the proximal small bowel as well as the stomach likely due to chronic disease. There is no demonstrated bowel obstruction or free air. No abscess is present. Small bilateral pleural effusions, hyperinflation, cystic emphysematous changes, and interstitial scarring is present bilaterally. Normal liver. Normal gallbladder and extrahepatic biliary system. Normal spleen. Normal pancreas. Normal bilateral adrenal glands. Normal right kidney. There is moderate cortical atrophy of the left kidney, consistent with chronic medical renal disease. Normal visualized stomach. Normal small intestine. There are multiple colonic diverticula consistent with diverticulosis. The appendix is visualized and appears normal. There is diffuse atherosclerotic calcification of the abdominal aorta with elongation and tortuosity, but without a demonstrated aneurysm. Normal inferior vena cava. Normal retroperitoneum. Normal urinary bladder. Normal abdominal wall. There are diffuse degenerative changes of the visualized lumbar spine. Multiple chronic compression deformities of the vertebral bodies noted. CT/CTA Abd/Pelvis W/WO Contrast IMPRESSION: 1. 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 Vascular stent is completely occluded with thrombus. 2. Left external iliac artery: Completely occluded 3. Left internal iliac artery: Completely occluded with severe atherosclerotic calcified plaque. 4. Bifemoral bypass graft is widely patent and normally opacified. The bypass graft terminates below the left common femoral artery/profundus junction. [place] left common femoral artery is completely occluded. Mild atherosclerotic plaque and luminal stenosis of the right common femoral artery. 5. There is no demonstrated arterial extravasation into the bowel loops on this study that would indicate active GI bleeding. No high density fluid collections are seen within the bowel loops on the current study. A nuclear medicine RBC scan can be obtained if there is continued concern for GI bleeding. Electronically Signed: Giles Frederick MD at 12:54 EDT ,
--- NOTE | 2023-01-19 11:02 | OP.EGD_ITS ---
Patient Name: Gordon Vaz Procedure Date: 01/19/2023 9:41 AM Date of : 1950 Age: 72 Procedure: Upper GI endoscopy Indications: Iron deficiency anemia, Melena Providers: Jorge Luis Williamson DO Medicines: Monitored Anesthesia Care Patient Profile: This is a 72 year old male. Refer to note in patient chart for documentation of history and physical. Patient has symptoms of acute abdominal cramping and acute nausea. Complications: No immediate complications. Procedure: Pre-Anesthesia Assessment: - Prior to the procedure, a History and Physical was performed, and patient medications and allergies were reviewed. The patient is competent. The risks and benefits of the procedure and the sedation options and risks were discussed with the patient. All questions were answered and informed consent was obtained. Patient identification and proposed procedure were verified by the physician. Mental Status Examination: normal. Prophylactic Antibiotics: The patient does not require prophylactic antibiotics. Prior Anticoagulants: The patient has taken no anticoagulant or antiplatelet agents. After reviewing the risks and benefits, the patient was deemed in satisfactory condition to undergo the procedure. The anesthesia plan was to use monitored anesthesia care (MAC). Immediately prior to administration of medications, the patient was re-assessed for adequacy to receive sedatives. The heart rate, respiratory rate, oxygen saturations, blood pressure, adequacy of pulmonary ventilation, and response to care were monitored throughout the procedure. The physical status of the patient was re-assessed after the procedure. After obtaining informed consent, the endoscope was passed under direct vision. Throughout the procedure, the patient's blood pressure, pulse, and oxygen saturations were monitored continuously. The Endoscope was introduced through the mouth, and advanced to the proximal jejunum. The upper GI endoscopy was accomplished without difficulty. The patient tolerated the procedure well. Scope In: 9:55:07 AM Scope Out: 10:16:43 AM Total Procedure Duration Time 0 hours 21 minutes 36 seconds Findings: No gross lesions were noted in the entire esophagus. A medium-sized hiatal hernia was present. No gross lesions were noted in the entire examined stomach. Four 5 mm angiodysplastic lesions without bleeding were found in the duodenal bulb, in the second portion of the duodenum and in the fourth portion of the duodenum. Coagulation for hemostasis using heater probe was successful. Estimated blood loss was minimal. Impression: - No gross lesions in the entire esophagus. - Medium-sized hiatal hernia. - No gross lesions in the entire stomach. 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 Treated with a heater probe. - Small lipoma seen in the second portion of the duodenum - No specimens collected. Recommendation: - Return patient to ICU for ongoing care. - Full liquid diet today. - Continue present medications. Procedure Code(s): --- Professional --- 45825, Esophagogastroduodenoscopy, flexible, transoral; with control of bleeding, any method CPT copyright 2021 [employer]. All rights reserved. The codes documented in this report are preliminary and upon experience design director review may be revised to meet current compliance requirements. Jorge Luis Williamson DO 01/19/2023 11:01:22 AM This report has been signed electronically. Number of Addenda: 0 Note Initiated On: 01/19/2023 9:41 AM
--- NOTE | 2023-01-19 11:02 | OP.CCLET_ITS ---
01/19/2023 Dom Chaidez [address] [place] [address] Re : Upper GI endoscopy procedure for Gordon Vaz Dear Dr. Chaidez This procedure was performed on Thursday, January 19, 2023. My impressions and recommendations are as follows: Impressions : - No gross lesions in the entire esophagus. - Medium-sized hiatal hernia. - No gross lesions in the entire stomach. 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 Treated with a heater probe. - Small lipoma seen in the second portion of the duodenum - No specimens collected. Recommendations : - Return patient to ICU for ongoing care. - Full liquid diet today. - Continue present medications. My findings are described in the full procedure note, which is enclosed. If I can be of further assistance, please feel free to contact me at . Sincerely, Jorge Luis Williamson, 01/19/2023 11:01:22 AM This report has been signed electronically.
--- NOTE | 2023-01-19 11:06 | OP.COLON_ITS ---
Patient Name: Gordon Vaz Procedure Date: 01/19/2023 10:22 AM Date of : 1950 Age: 72 Procedure: Colonoscopy Indications: Melena, Iron deficiency anemia Providers: Jorge Luis Williamson DO Medicines: Monitored Anesthesia Care Patient Profile: This is a 72 year old male. Refer to note in patient chart for documentation of history and physical. Patient has symptoms of acute abdominal cramping and acute nausea. Last Colonoscopy: date unknown. Unable to locate last colonoscopy report. Complications: No immediate complications. Procedure: Pre-Anesthesia Assessment: - Prior to the procedure, a History and Physical was performed, and patient medications and allergies were reviewed. The patient is competent. The risks and benefits of the procedure and the sedation options and risks were discussed with the patient. All questions were answered and informed consent was obtained. Patient identification and proposed procedure were verified by the physician. Mental Status Examination: normal. Prophylactic Antibiotics: The patient does not require prophylactic antibiotics. Prior Anticoagulants: The patient has taken no anticoagulant or antiplatelet agents. After reviewing the risks and benefits, the patient was deemed in satisfactory condition to undergo the procedure. The anesthesia plan was to use monitored anesthesia care (MAC). Immediately prior to administration of medications, the patient was re-assessed for adequacy to receive sedatives. The heart rate, respiratory rate, oxygen saturations, blood pressure, adequacy of pulmonary ventilation, and response to care were monitored throughout the procedure. The physical status of the patient was re-assessed after the procedure. After I obtained informed consent, the scope was passed under direct vision. Throughout the procedure, the patient's blood pressure, pulse, and oxygen saturations were monitored continuously. The colonoscope was introduced through the anus and advanced to the terminal ileum. The colonoscopy was performed without difficulty. The patient tolerated the procedure well. No bowel preparation was given prior to the procedure. Scope In: 10:23:43 AM Scope Withdrawal Time 0 hours 11 minutes 16 seconds Scope Out: 10:44:43 AM Total Procedure Duration Time 0 hours 21 minutes 0 seconds Findings: The perianal and digital rectal examinations were normal. Hematin (altered blood/jablzr-nktgvz-wbtt material) was found in the entire colon. Multiple small and large-mouthed diverticula were found in the recto-sigmoid colon, sigmoid colon and descending colon. There was no evidence of diverticular bleeding. Two small localized angiodysplastic lesions with bleeding were found in the ascending colon. Area was successfully injected with 5 mL of a 0.1 mg/mL solution of epinephrine for drug delivery. Estimated blood loss was minimal. Coagulation for hemostasis using heater probe was successful. Estimated blood loss was minimal. The distal ileum contained hematin (altered blood/qgslty-nburrc-alqm material). Impression: - Blood in the entire examined colon. - Severe diverticulosis in the recto-sigmoid colon, in the sigmoid colon and in the descending colon. There was no evidence of diverticular bleeding. - Two bleeding colonic angiodysplastic lesions. Injected. Treated with a heater probe. - Blood in the distal ileum. - No specimens collected. Recommendation: - [facility] care. - Full liquid diet. - Continue present medications. - Repeat colonoscopy because the bowel preparation was poor. Procedure Code(s): --- Professional --- 80637, Colonoscopy, flexible; with control of bleeding, any method 42104, 59, Colonoscopy, flexible; with directed submucosal injection(s), any substance CPT copyright 2021 [employer]. All rights reserved. The codes documented in this report are preliminary and upon physician coder review may be revised to meet current compliance requirements. Jorge Luis Williamson DO 01/19/2023 11:06:36 AM This report has been signed electronically. Number of Addenda: 0 Note Initiated On: 01/19/2023 10:22 AM
--- NOTE | 2023-01-19 11:06 | OP.CCLET_ITS ---
01/19/2023 Dom Chaidez [address] [place] [address] Re : Colonoscopy procedure for Gordon Vaz Dear Dr. Chaidez This procedure was performed on Thursday, January 19, 2023. My impressions and recommendations are as follows: Impressions : - Blood in the entire examined colon. - Severe diverticulosis in the recto-sigmoid colon, in the sigmoid colon and in the descending colon. There was no evidence of diverticular bleeding. - Two bleeding colonic angiodysplastic lesions. Injected. Treated with a heater probe. - Blood in the distal ileum. - No specimens collected. Recommendations : - Return patient to [facility] for ongoing care. - Full liquid diet. - Continue present medications. - Repeat colonoscopy because the bowel preparation was poor. My findings are described in the full procedure note, which is enclosed. If I can be of further assistance, please feel free to contact me at . Sincerely, Jorge Luis Williamson, 01/19/2023 11:06:36 AM This report has been signed electronically.
[2023-01-19 15:23] LABS: Hematocrit 37.2 % (40-54); Hemoglobin 11.4 g/dL (13.0-16.5)
[2023-01-19] MEDS: 0.9% Normal Saline 1,000 ML 50 ML IV (15:34)
[2023-01-19] MEDS: Petrolatum 33% Tube 1 APPLIC TOPICAL (16:24)
[2023-01-19] MEDS: Atorvastatin Calcium 40 MG Tablet PO (21:08)
[2023-01-19] MEDS: Acetaminophen 325 MG Tablet 650 MG PO (21:08)
[2023-01-19] MEDS: MELATONIN 3 MG TABLET PO (21:08)
[2023-01-20] VITALS (19 sets, daily range): BP systolic 111–141; BP diastolic 65–89; PULSE 71–99; RESP 17–26; TEMP 36.6–37.2; O2SAT 92–100; BMI 18.1
[2023-01-20 04:11] LABS: Absolute Lymphocyte Count 0.79 X10^3/uL (0.83-4.51); Absolute Neutrophil Count 5.9 X10^3/uL (2.0-7.7); Basophil# 0.03 X10^3/uL; Basophil% 0.4 % (0-1); Eosinophil# 0.17 X10^3/uL; Eosinophils% 2.2 % (0-5); Hematocrit 33.4 % (40-54); Hemoglobin 10.8 g/dL (13.0-16.5); Lymphocyte # 0.79 X10^3/ul (0.83-4.51); Lymphocyte % 10.4 % (19-41); Mean Corp Hgb Conc 32.3 g/dL (32-36); Mean Corpuscular Hgb 29.4 pg (27.0-32.0); Mean Platelet Vol. 9.8 fl (6.2-12.0); Monocyte# 0.63 X10^3/uL; Monocyte% 8.3 % (0-10); NRBC Flagged by Analyzer 0 % (0-5); Neutrophil # 5.94 X10^3/uL (2.7-7.7); Neutrophil % 78.4 % (47-70); Platelet Count 179 K/mm3 (150-450); RBC Distribution Width CV 15.5 % (11.6-14.6); RBC Distribution Width SD 50.9 fl (35.1-43.9); Red Blood Count 3.67 M/mm3 (4.6-6.2); White Blood Count 7.6 K/mm3 (4.4-11.0)
[2023-01-20 04:26] LABS: Anion Gap 6 (5-15); BUN 32 mg/dL (7-18); BUN/Creat Ratio 22.2 RATIO (10-20); Calcium,Total 7.9 mg/dL (8.5-10.1); Chloride 110 mmol/L (98-107); Creatinine, Serum 1.44 mg/dL (0.70-1.30); EST Glomerular Filtration Rate 51 mL/min (>60); Est Glom Filt Rate - Afr Amer 62 mL/min (>60); Estimated Creatinine Clearance 29.98 ml/min; Glucose 110 mg/dL (74-106); Potassium 3.8 mmol/L (3.5-5.1); Sodium Level 137 mmol/L (136-145)
--- NOTE | 2023-01-20 06:05 | PN.CC_ITS ---
Assessment & Plan Assessment/Plan (1) Anemia: QUALIFIERS: Anemia type: iron deficiency Iron deficiency anemia type: chronic blood loss Qualified Code(s): D50.0 - Iron deficiency anemia secondary to blood loss (chronic) PLAN: Plan RECOMMENDATIONS: 1. Continue to monitor blood counts and transfuse if hemoglobin drops below 7 g/dL. 2. Octreotide and PPI therapy per GI. 3. Continue as needed bronchodilator therapy. 4. Wean supplemental oxygen to maintain saturations at or above 90%. 5. Encourage incentive spirometer use and mobilize patient as tolerated. 6. The patient is medically stable for transfer out of the intensive care unit. We will sign off at this time. IMPRESSIONS: 1. Acute blood loss anemia The patient presented to the hospital with abdominal discomfort and generalized weakness in the setting of acute blood loss anemia. The patient was ultimately transfused blood products underwent upper and lower endoscopy. Two bleeding colonic angiodysplastic lesions were noted and were treated with heater probe. The patient responded appropriately to transfusion of blood products. He remains hemodynamically stable. Continue PPI therapy per GI recommendations. 2. Acute kidney injury Improving. Most likely prerenal in the etiology in the setting of tissue hypoperfusion due to #1. Plan to continue to monitor urine output for now. No current indication for renal replacement therapy. 3. History of COPD/peripheral vascular disease/tobacco depend ency/hyperlipidemia Complicates care, management, recovery and prognosis. Continue supportive care along with scheduled bronchodilator therapy. This note was generated with [employer] dictation software. It may contain incorrect words, spelling, and punctuation that were not noted in checking the note before signing. Subjective Subjective The patient was seen and examined at the bedside this morning. Events from the last 24 hours have been reviewed. The patient is currently afebrile, hemodynamically stable and maintaining appropriate oxygen saturations on 2 L/min via nasal cannula. The patient was transfused a total of 5 units of packed red blood cells yesterday. Hemoglobin this morning was noted to be 10.8 g/dL. Upper endoscopy revealed 4 nonbleeding angiodysplastic lesions in the duodenum. Colonoscopy revealed 2 bleeding colonic angiodysplastic lesions which were injected and treated with a heater probe. The patient is resting comfortably this morning without any specific complaints. Objective Data Objective Data The patient's most recent lab work, culture data and imaging studies have all been personally reviewed. Vital Signs: Vital Signs Temp Pulse Resp BP Pulse Ox O2 Del Method O2 Flow Rate 98.9 F 75 18 134/76 H 100 Nasal Cannula 2 01/20/23 04:00 01/20/23 06:00 01/20/23 06:00 01/20/23 06:00 01/20/23 06:00 01/20/23 06:00 01/20/23 05:00 FiO2 30 01/19/23 09:00 Oxygen Flow Rate (L/min) 2 Oxygen Delivery Method Nasal Cannula Weight: 102 lb 4.712 oz Body Mass Index (BMI) 18.1 Intake & Output: Intake and Output for Last 24 Hours 01/18/23 01/19/23 01/20/23 23:59 23:59 23:59 Intake Total 3609.21 / 3609.21 3919.42 / 3919.42 100 / 100 Output Total 200 / 200 1650 / 1650 450 / 450 Balance 3409.21 / 3409.21 2269.42 / 2269.42 -350 / -350 Medical Nutrition Assessment Dietitian: Malnutrition Criteria Met Start: 01/19/23 11:19 Freq: Status: Active Protocol: Document 01/19/23 11:23 SLA (Rec: 01/19/23 11:23 SLA [id number]) Nutrition Malnutrition Evidence of Malnutrition Exists Yes Malnutrition (severe): Chronic Evidenced By Suboptimal Energy Intake ( Severe),Weight Loss (Severe), Physical Changes (Severe) Clinical Problem Chronic Disease or Condition Related Malnutrition Etiology related to inadequate energy intake Signs/Symptoms as evidenced by 23.2% unintended wt loss x 6 mo, po intake <50% of est nutritional needs x more than one month, obvious fat/muscle loss throughout body and BMI <16 Status Active Problem Recommendation Dietitian Recommendations/Changes As medically able, rec QUENTIN to liberal regular d/t signs and symptoms of malnutrition As medically able, rec chocolate ensure plus high protein 4x/day w/ medpass for increased nutrition if consumed As medically able, rec chocolate magic cup w/ lunch and dinner for increased nutrition if consumed Monitor for s/s of refeeding syndrome Lab / Micro Data Attestation: I reviewed the patient's lab results. 01/20/23 03:45 01/20/23 03:45 Labs: Laboratory Results - last 24 hr 01/18/23 13:20: Crossmatch See Detail 01/19/23 06:17: WBC 4.3 L, RBC 2.07 L, Hgb 6.0 L*, Hct 19.2 L, MCV 92.8, MCH 29.0, MCHC 31.3 L, RDW Std Deviation 52.5 H, RDW Coeff of Barbara 15.7 H, Plt Count 119 L, MPV 10.0, Immature Gran % (Auto) 0.200, Neut % (Auto) 73.8 H, Lymph % (Auto) 14.5 L, [place] % (Auto) 8.3, Eos % (Auto) 3.0, Baso % (Auto) 0.2, Absolute Neuts (auto) 3.2, Absolute Lymphs (auto) 0.63 L, Nucleated RBC % 0, Differential Comment SCANNED, Diff Path Review September01/19/23 15:15: Hgb 11.4 L, Hct 37.2 L 01/20/23 03:45: WBC 7.6, RBC 3.67 L, Hgb 10.8 L, Hct 33.4 L, MCV 91.0, MCH 29.4, MCHC 32.3, RDW Std Deviation 50.9 H, RDW Coeff of Barbara 15.5 H, Plt Count 179, MPV 9.8, Immature Gran % (Auto) 0.300, Neut % (Auto) 78.4 H, Lymph % (Auto) 10.4 L, [place] % (Auto) 8.3, Eos % (Auto) 2.2, Baso % (Auto) 0.4, Absolute Neuts (auto) 5.9, Absolute Lymphs (auto) 0.79 L, Nucleated RBC % 0, Sodium 137, Potassium 3.8, Chloride 110 H, Carbon Dioxide 21.0, Anion Gap 6, BUN 32 H, Creatinine 1.44 H, Estim Creat Clear Calc 29.98, Est GFR (MDRD) Af Amer 62, Est GFR (MDRD) Non- Af 51 L, BUN/Creatinine Ratio 22.2 H, Glucose 110 H, Calcium 7.9 L Micro: Microbiology 01/18/23 12:45 Stool Stool Occult Blood (BLESSING) - Final Radiography Diagnostic Testing: Radiology Impression Abdomen/Pelvis CTA 01/19/23 11:01 IMPRESSION: 1. 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 Vascular stent is completely occluded with thrombus. 2. Left external iliac artery: Completely occluded 3. Left internal iliac artery: Completely occluded with severe atherosclerotic calcified plaque. 4. Bifemoral bypass graft is widely patent and normally opacified. The bypass graft terminates below the left common femoral artery/profundus junction. The [place] left common femoral artery is completely occluded. Mild atherosclerotic plaque and luminal stenosis of the right common femoral artery. 5. There is no demonstrated arterial extravasation into the bowel loops on this study that would indicate active GI bleeding. No high density fluid collections are seen within the bowel loops on the current study. A nuclear medicine RBC scan can be obtained if there is continued concern for GI bleeding. Electronically Signed: Giles Frederick MD at 12:54 EDT , Physical Exam Const alert and no apparent distress General Appearance: cooperative HEENT normocephalic and head/scalp atraumatic Eyes PERRL, EOMs intact bilaterally and conjunctivae normal Neck supple General: trachea midline Resp normal respiratory effort Auscultation: diminished lung sounds Cardio regular rate and regular rhythm GI normal to inspection, nondistended, normoactive bowel sounds Extremity no clubbing, cyanosis or edema Skin no rashes or lesions noted Neuro oriented x3, CN's II-XII intact bilaterally and moves all extremities Psych cooperative and affect normal Charges/Coding Visit Charges Inpatient E&M: 31769 Subs Hosp L2
[2023-01-20] MEDS: 0.9% Saline Lock 10 ML Syringe IV (06:09)
[2023-01-20] MEDS: Ipratropium/Albuterol Sulfate 3 ML AMPUL.NEB INHALATION ×4 (07:16→19:09)
[2023-01-20 14:01] LABS: Magnesium 1.6 mg/dL (1.6-2.6); Phosphorus 3.6 mg/dL (2.5-4.9)
[2023-01-20] MEDS: Bisacodyl 5 MG Tablet 20 MG PO (15:15)
--- NOTE | 2023-01-20 16:00 | PCM.PN.HOSP ---
Reason for Visit Reason for Visit: Diagnoses Iron deficiency anemia secondary to blood loss (chronic) (01/18/23) Anemia, unspecified (01/18/23) Acidosis, unspecified (01/18/23) Idiopathic hypotension (01/18/23) Hypotension, unspecified (01/18/23) Subjective Subjective No acute events overnight. Patient seen at bedside this morning. Laying comfortably in bed, conversing normally, no acute distress. Denies any acute pain or discomfort this morning. Denies any lightheadedness or dizziness. Denies any dark or bloody bowel movements. Denies any fevers or chills. No other acute concerns. Objective Data Objective Data Vital Signs: Vital Signs Temp Pulse Resp BP Pulse Ox O2 Del Method O2 Flow Rate 98.9 F 88 20 H 129/78 H 98 Nasal Cannula 2 01/20/23 14:31 01/20/23 14:31 01/20/23 14:31 01/20/23 14:31 01/20/23 14:30 01/20/23 14:34 01/20/23 14:34 FiO2 30 01/19/23 09:00 Oxygen Flow Rate (L/min) 2 Oxygen Delivery Method Nasal Cannula Weight: 46.4 kg Body Mass Index (BMI) 18.1 Intake & Output: Intake and Output for Last 24 Hours 01/18/23 01/19/23 01/20/23 23:59 23:59 23:59 Intake Total 3609.21 / 3609.21 3919.42 / 3919.42 535.92 / 535.92 Output Total 200 / 200 1650 / 1650 1450 / 1450 Balance 3409.21 / 3409.21 2269.42 / 2269.42 -914.08 / -914.08 Medical Nutrition Assessment Dietitian: Malnutrition Criteria Met Start: 01/19/23 11:19 Freq: Status: Active Protocol: Document 01/19/23 11:23 GIDEON (Rec: 01/19/23 11:23 GIDEON [id number]) Nutrition Malnutrition Evidence of Malnutrition Exists Yes Malnutrition (severe): Chronic Evidenced By Suboptimal Energy Intake ( Severe),Weight Loss (Severe), Physical Changes (Severe) Clinical Problem Chronic Disease or Condition Related Malnutrition Etiology related to inadequate energy intake Signs/Symptoms as evidenced by 23.2% unintended wt loss x 6 mo, po intake <50% of est nutritional needs x more than one month, obvious fat/muscle loss throughout body and BMI <16 Status Active Problem Recommendation Dietitian Recommendations/Changes As medically able, rec QUENTIN to liberal regular d/t signs and symptoms of malnutrition As medically able, rec chocolate ensure plus high protein 4x/day w/ medpass for increased nutrition if consumed As medically able, rec chocolate magic cup w/ lunch and dinner for increased nutrition if consumed Monitor for s/s of refeeding syndrome Lab / Micro Data 01/20/23 03:45 01/20/23 03:45 Labs: Laboratory Results - last 24 hr 01/20/23 03:45: WBC 7.6, RBC 3.67 L, Hgb 10.8 L, Hct 33.4 L, MCV 91.0, MCH 29.4, MCHC 32.3, RDW Std Deviation 50.9 H, RDW Coeff of Barbara 15.5 H, Plt Count 179, MPV 9.8, Immature Gran % (Auto) 0.300, Neut % (Auto) 78.4 H, Lymph % (Auto) 10.4 L, [place] % (Auto) 8.3, Eos % (Auto) 2.2, Baso % (Auto) 0.4, Absolute Neuts (auto) 5.9, Absolute Lymphs (auto) 0.79 L, Nucleated RBC % 0, Sodium 137, Potassium 3.8, Chloride 110 H, Carbon Dioxide 21.0, Anion Gap 6, BUN 32 H, Creatinine 1.44 H, Estim Creat Clear Calc 29.98, Est GFR (MDRD) Af Amer 62, Est GFR (MDRD) Non-Af 51 L, BUN/Creatinine Ratio 22.2 H, Glucose 110 H, Calcium 7.9 L, Phosphorus 3.6, Magnesium 1.6 Micro: Microbiology 01/18/23 12:02 Blood Culture (Wb) - Right Hand Blood Culture - Preliminary No growth in 48 hours. 01/18/23 11:56 Blood Culture (Wb) - Anticubital Left Blood Culture - Preliminary No growth in 48 hours. 01/18/23 21:15 Urine, Clean Catch Urine Culture - Final Culture exhibits no growth. 01/18/23 12:45 Stool Stool Occult Blood (BLESSING) - Final Physical Exam Const alert, oriented x3 and no apparent distress Constitutional Narrative: Thin elderly male, lying comfortably in bed, conversing normally, no acute distress. General Appearance: cooperative and comfortable HEENT normocephalic, head/scalp atraumatic, hearing grossly normal bilaterally, nasal mucous membranes and turbinates normal and moist oral mucous membranes Eyes PERRL, EOMs intact bilaterally and conjunctivae normal Neck full ROM, no lymphadenopathy and supple Lymph Lymphatic: no lymphadenopathy noted Chest inspection of chest normal Resp normal respiratory effort, normal air movement, no use of accessory muscles and clear to auscultation bilaterally Cardio regular rate, regular rhythm, no murmurs and peripheral pulses 2+ throughout GI normal to inspection, nondistended, normoactive bowel sounds, soft to palpation, non-tender and non-distended Back/Spine normal ROM Extremity normal to inspection, full ROM and no pedal edema Skin no rashes or lesions noted Psych mental status grossly normal Assessment & Plan Assessment/Plan (1) GI bleed: PLAN: Plan Patient is a 72-year-old male with history of COPD on home O2, peripheral vascular disease, GERD, BPH and hypertension who presented to [facility] on 01/18/2023 with epigastric pain and generalized weakness. 1. GI bleed With acute blood loss anemia and hypotension on admission requiring ICU placement. 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 Attempted colonoscopy without bowel preparation given degree of anemia as noted below; hematin found in entire colon along with 2 small localized angiodysplastic lesions in ascending colon that were actively bleeding, treated with epinephrine. ? GI following, appreciate recs. Continue PPI drip and octreotide drip. Completing colonoscopy prep today with plan for colonoscopy tomorrow morning. Monitor hemoglobin daily. 2. Acute blood loss anemia, known chronic anemia Secondary to GI bleed as noted above. Hemoglobin 5.4 on admit, dropped to 4.1 prior to any blood transfusion. Last known hemoglobin was 9.5 on 11/27/2022. S/p 3 units of packed red blood cells with improvement of hemoglobin to 8.1. Again had downtrend of hemoglobin to 6 on 01/19, s/p 2 more units of packed red blood cells with improvement in hemoglobin to 11.4. Hemoglobin stable at 10.8 on 01/20. Iron studies showed significant iron deficiency. ?Treatment of GI bleed as noted above. Monitor hemoglobin daily. Can consider IV iron replacement prior to discharge. 3. Hypotension, resolved ? Suspected secondary to GI bleed and acute blood loss anemia as noted above. Blood pressure stable after patient received several units of packed red blood cells as noted above. Patient stable for transfer out of ICU. Monitor BP. 4. NOEL, improving ? Presumed secondary to hypotension from blood loss as noted above. Likely with some degree of ATN at this time. Creatinine 1.9 on admission, baseline appears to be around 1.0. Improved to 1.44 on 01/20. Good urine output. Monitor BMP daily. 5. COPD ? Per patient, has home O2 prescribed but had not been wearing it at home. Has consistently required 2 to 3 L nasal cannula since admission. Continue supplemental oxygen as needed. Continue home bronchodilators. 6. Peripheral vascular disease ? Has aspirin, Plavix, Xarelto 2.5 mg twice daily, statin noted on home med list. Unclear what patient is actually taking at home. Holding all AC and antiplatelet agents given GI bleed as above. Continue home statin. We will determine appropriate medication regimen on discharge. DVT prophylaxis: SCDs CODE STATUS: DNR CCA, DO NOT INTUBATE Expected disposition: Home, 2 to 3 days Total clinical time spent by myself addressing the patient's medical issues, reviewing all the data, and collaborating with patient's care team: 35 minutes. Charges/Coding Visit Charges Inpatient E&M: 45558 Subs Hosp L2
[2023-01-20] MEDS: Polyethylene Glycol 3350 BOWEL PREP PO (16:20)
[2023-01-20] MEDS: Atorvastatin Calcium 40 MG Tablet PO (21:18)
[2023-01-21] VITALS (16 sets, daily range): BP systolic 75–125; BP diastolic 44–80; PULSE 75–89; RESP 16–20; TEMP 36.4–36.7; O2SAT 92–100; BMI 18.6
--- NOTE | 2023-01-21 | COLBX_PTH ---
PATIENT: RYAN ESCOBAR LOC: [facility] U#:[id number] AGE/SX: 72/M ROOM: [facility] RE01/18/[address]: Dr. Otoniel Prasad DO : 1950 BED: 1 DIS: 01/22/2023 SPEC #: [id number] RECD: 01/21/23 14:20 STATUS: AILYN RE #: [id number] DESIREE: 01/21/23 00:[address]: Jorge Luis Williamson DEPT: SURGICAL PATHOLOGY RECD BY: Akira Kaiser ENTERED: 01/22/23 08:44 SP TYPE: COLON BX OTHR DR: DO Dr. Franco Barlow MD Dr. Derek Brown, DO Dr. John E Schinner, MD Dr. Lee Ann Baggott, MD Dr. Paige Pierce, MD Dr. Tanmay Panchabhai, MD Christina Muller, LOAN COUNSELOR-C Tissues: COLON BIOPSY Procedures: Surgery Specimen Level IV HEADER OPERATION: Colonoscopy PRE-OP DIAGNOSIS: GI bleed TISSUE SUBMITTED: Splenic flexure polyp MICROSCOPIC DIAGNOSIS Colonic polyp at hepatic flexure, biopsy: Tubular adenoma. AM:luciana 01/23/2023 MICROSCOPIC DESCRIPTION Slides are reviewed. GROSS DESCRIPTION Received in fixative is one container labeled with the patient's name and designated splenic flexure biopsy. The specimen consists of a sessile pink polyp measuring 1.5 x 1.2 x 0.3 cm. The specimen is inked, serially sectioned and submitted entirely in one cassette. / SHABBIR:luciana 01/22/2023 TC:5 CPT: 46053
[2023-01-21 07:02] LABS: Absolute Lymphocyte Count 0.81 X10^3/uL (0.83-4.51); Absolute Neutrophil Count 5.9 X10^3/uL (2.0-7.7); Basophil# 0.02 X10^3/uL; Basophil% 0.3 % (0-1); Eosinophil# 0.22 X10^3/uL; Eosinophils% 2.8 % (0-5); Hematocrit 35.8 % (40-54); Hemoglobin 11.4 g/dL (13.0-16.5); Lymphocyte # 0.81 X10^3/ul (0.83-4.51); Lymphocyte % 10.4 % (19-41); Mean Corp Hgb Conc 31.8 g/dL (32-36); Mean Corpuscular Volume 91.1 fL (80-94); Mean Platelet Vol. 9.8 fl (6.2-12.0); Monocyte# 0.77 X10^3/uL; Monocyte% 9.9 % (0-10); NRBC Flagged by Analyzer 0 % (0-5); Neutrophil # 5.91 X10^3/uL (2.7-7.7); Neutrophil % 76.2 % (47-70); Platelet Count 177 K/mm3 (150-450); RBC Distribution Width CV 15.3 % (11.6-14.6); RBC Distribution Width SD 51.9 fl (35.1-43.9); Red Blood Count 3.93 M/mm3 (4.6-6.2); White Blood Count 7.8 K/mm3 (4.4-11.0)
[2023-01-21] MEDS: Ipratropium/Albuterol Sulfate 3 ML AMPUL.NEB INHALATION ×2 (07:36→15:20)
[2023-01-21 07:50] LABS: Anion Gap 5 (5-15); BUN 22 mg/dL (7-18); BUN/Creat Ratio 16.8 RATIO (10-20); Calcium,Total 8.1 mg/dL (8.5-10.1); Chloride 106 mmol/L (98-107); Creatinine, Serum 1.31 mg/dL (0.70-1.30); EST Glomerular Filtration Rate 57 mL/min (>60); Est Glom Filt Rate - Afr Amer 69 mL/min (>60); Estimated Creatinine Clearance 33.95 ml/min; Glucose 97 mg/dL (74-106); Potassium 4.4 mmol/L (3.5-5.1); Sodium Level 134 mmol/L (136-145)
--- NOTE | 2023-01-21 09:51 | CASEMGMT ---
Addendum entered by Peter Paez 01/21/23 16:12: Per Dr Prasad, he anticipates pt will be ready for discharge tomorrow. Per Sara @ [facility], they are able to accept pt w/SOC slated for , but Dr Chaidez requires appt w/him before he will follow for C orders. Pt and family made aware. RN ABBEY offered to schedule an appt for pt, but dtr states she will call to schedule an appt for either tomorrow afternoon or morning and to let RN CM know of date/time so this can be added to d/c plan. Dtr made aware to let RN CM know if she has any difficulty w/getting appt scheduled. Sara made aware dtr calling to schedule an appt. Addendum entered by Peter Paez 01/21/23 10:47: and dtr's requested to speak w/KIKO POTTER. They voice concern re: pt's chronic back pain and state it is d/t scoliosis and state it is affecting his ability to do ADL's at home and willingness to participate in therapy in the past. KIKO POTTER advised f/u with PCP re: this and provided list of local pain mgnt physicians. Pt also qualifies for Palliative referral for COPD/symptom mgnt. Family made aware of this and they are agreeable to referral. Dr Prasad made aware and order received for Palliative referral. Addendum entered by Peter Paez 01/21/23 10:25: KIKO POTTER verified w/Michelle @ [employer] that orders are for 2 l/m continuously. Pt has O2 concentrator @ home and portable O2 tanks. states she can bring in a portable O2 tank in for pt to go home on if pt needs it @ d/c. Original Note: KIKO POTTER Assessment: RN CM to room to meet with pt for initial transition planning/care coordination assessment. KIKO POTTER introduced self and role at [facility], pt voices understanding and consents to assessment. Pt is A/O x4 and answers all questions appropriately at this time. and dtr, Patricia, present in room and pt is agreeable to assessment with them present. Care providers, pharmacy, and demographics verified/updated. PCP:Dr Chaidez Specialists:Dr Grubbs and LucyGARY Denny, Dr Williamson-EUGENIA Preferred Pharmacy: [facility] Insurance: MCR, MMO Prescription Benefit: no, uses [facility] LW/HCPOA: Pt does not have either and would like to complete. SW, Daniela, made aware. Pt and family made aware, if SW unable to meet w/him while @ [facility], AD can be completed as an OP. LNOK: Ruthy Vaz, . Dtr, Patricia Living Arrangements: Pt lives with in a two story home. FFSU. 1-2 steps to enter home with a rail. Pt reports he is I in ADL' s and IADL's, although does most home mgnt tasks. Transportation: Pt drives self and denies concerns with transportation. also drives. DME: Pt has a walk in shower w/shower chair. Pt has a nebulizer, pulse ox, O2 through [employer] that states pt is supposed to wear all the time and pt states he has not been using it at all. Pt also has grab bars, a cane that he normally uses, and a FWW available if needed. HHC/SNF: No hx of SNF. Has had [facility] in the past. Pt weak yesterday and only took a couple steps with therapy. Family state, if SNF is needed, they would like [facility] as 1st choice and decline wanting list of other SNF choices. Pt states would like to discharge home if able and agreeable to HHC again and pt and family would like [facility] at d/c. They decline wanting a list of other HHC options. Pt and family state no further concerns at this time. CM to follow. Advised pt and family to ask for CM if any further question/concerns/needs arise. They voice understanding. Plan: Home w/HHC Juan Daniel ENNIS RN CM
--- NOTE | 2023-01-21 10:20 | NURSING ---
Patient off the floor to endoscopy
[2023-01-21] MEDS: Lactated Ringers 1,000 ML 15 ML IV (10:48)
[2023-01-21] MEDS: 0.9% Normal Saline (Pres. free 10 ML Vial (12:26)
[2023-01-21] MEDS: Epinephrine (1 mg/ml) 1 MG/ML VIAL (12:38)
--- NOTE | 2023-01-21 12:47 | OP.CCLET_ITS ---
01/21/2023 Dom Chaidez [address] [place] [address] Re : Colonoscopy procedure for Gordon Vaz Dear Dr. Chaidez This procedure was performed on Saturday, January 21, 2023. My impressions and recommendations are as follows: Impressions : - Decreased sphincter tone and internal hemorrhoids that prolapse with straining, but spontaneously regress to the resting position (Grade II) found on digital rectal exam. - Rectal prolapse. - Diverticulosis in the recto-sigmoid colon, in the sigmoid colon and in the descending colon. - One 20 mm polyp at the splenic flexure, removed using injection-lift and a hot snare. Resected and retrieved. Injected. - The examination was otherwise normal. Recommendations : - [facility]. - Resume regular diet. - Continue present medications. - Await pathology results. - Repeat colonoscopy in 3 years for surveillance. My findings are described in the full procedure note, which is enclosed. If I can be of further assistance, please feel free to contact me at . Sincerely, Jorge Luis Williamson, 01/21/2023 12:47:02 PM This report has been signed electronically.
--- NOTE | 2023-01-21 12:47 | OP.COLON_ITS ---
Patient Name: Gordon Vaz Procedure Date: 01/21/2023 11:53 AM Date of : 1950 Age: 72 Procedure: Colonoscopy Indications: Hematochezia Providers: Jorge Luis Williamson DO Medicines: Monitored Anesthesia Care Patient Profile: This is a 72 year old male. Refer to note in patient chart for documentation of history and physical. Last Colonoscopy: 1 week ago. Complications: No immediate complications. Procedure: Pre-Anesthesia Assessment: - Prior to the procedure, a History and Physical was performed, and patient medications and allergies were reviewed. The risks and benefits of the procedure and the sedation options and risks were discussed with the patient. All questions were answered and informed consent was obtained. Patient identification and proposed procedure were verified by the physician in the pre-procedure area. Mental Status Examination: alert and oriented. Airway Examination: normal oropharyngeal airway and neck mobility. Respiratory Examination: clear to auscultation. CV Examination: normal. Prophylactic Antibiotics: The patient does not require prophylactic antibiotics. Prior Anticoagulants: The patient has taken no anticoagulant or antiplatelet agents. ASA Grade Assessment: III - A patient with severe systemic disease. After reviewing the risks and benefits, the patient was deemed in satisfactory condition to undergo the procedure. The anesthesia plan was to use monitored anesthesia care (MAC). Immediately prior to administration of medications, the patient was re-assessed for adequacy to receive sedatives. The heart rate, respiratory rate, oxygen saturations, blood pressure, adequacy of pulmonary ventilation, and response to care were monitored throughout the procedure. The physical status of the patient was re-assessed after the procedure. After I obtained informed consent, the scope was passed under direct vision. Throughout the procedure, the patient's blood pressure, pulse, and oxygen saturations were monitored continuously. The Colonoscope was introduced through the anus and advanced to the cecum, identified by appendiceal orifice and ileocecal valve. The colonoscopy was performed without difficulty. The patient tolerated the procedure well. The quality of the bowel preparation was good. The terminal ileum, ileocecal valve, appendiceal orifice, and rectum were photographed. Scope In: 12:13:08 PM Scope Withdrawal Time 0 hours 17 minutes 24 seconds Scope Out: 12:36:52 PM Total Procedure Duration Time 0 hours 23 minutes 44 seconds Findings: The digital rectal exam findings include decreased sphincter tone and internal hemorrhoids that prolapse with straining, but spontaneously regress to the resting position (Grade II). Moderate rectal prolapse was present. Multiple small and large-mouthed diverticula were found in the recto-sigmoid colon, sigmoid colon and descending colon. A 20 mm polyp was found in the splenic flexure. The polyp was sessile. The polyp was removed with a saline injection-lift technique using a hot snare. Resection and retrieval were complete. Area was successfully injected with 5 mL of a 0.1 mg/mL solution of epinephrine for drug delivery. Estimated blood loss was minimal. The exam was otherwise without abnormality. Non-bleeding external and internal hemorrhoids were found during endoscopy. The hemorrhoids were Grade III (internal hemorrhoids that prolapse but require manual reduction). Impression: - Decreased sphincter tone and internal hemorrhoids that prolapse with straining, but spontaneously regress to the resting position (Grade II) found on digital rectal exam. - Rectal prolapse. - Diverticulosis in the recto-sigmoid colon, in the sigmoid colon and in the descending colon. - One 20 mm polyp at the splenic flexure, removed using injection-lift and a hot snare. Resected and retrieved. Injected. - The examination was otherwise normal. Recommendation: - [facility]. - Resume regular diet. - Continue present medications. - Await pathology results. - Repeat colonoscopy in 3 years for surveillance. Procedure Code(s): --- Professional --- 84983, Colonoscopy, flexible; with removal of tumor(s), polyp(s), or other lesion(s) by snare technique 99508, Colonoscopy, flexible; with directed submucosal injection(s), any substance CPT copyright 2021 [employer]. All rights reserved. The codes documented in this report are preliminary and upon special needs tutor review may be revised to meet current compliance requirements. Jorge Luis Williamson DO 01/21/2023 12:47:02 PM This report has been signed electronically. Number of Addenda: 0 Note Initiated On: 01/21/2023 11:53 AM
--- NOTE | 2023-01-21 15:36 | CHAPLAIN ---
Type of Pastoral Visit ___ Initial Visit ___ Follow-up Visit ___ On-call Visit ___ General Patient Visit ___ Spiritual Assessment ___ Family Conference ___ Bereavement ___ Rapid Response ___ Code Blue ___ Other (describe below) Pastoral Care Referral From ___ Patient ___ Family ___ Nurse ___ Physician ___ Patient Transition Specialist ___ Submarine Diver ___ Other (describe below) Sacrament/Intervention ___ Active listening ___ Anointing ___ Alevism ___ Bereavement ___ Communion ___ Farida exploration ___ ___ Life review ___ Prayer ___ Reconciliation ___ Sacrament of Sick ___ Supportive presence ___ Wedding ___ Other (describe below) Pastoral Comments patient is out of the room; family members are waiting in the room; offer of support to family members
--- NOTE | 2023-01-21 17:17 | PN.HOSP_ITS ---
Reason for Visit Reason for Visit: Diagnoses Iron deficiency anemia secondary to blood loss (chronic) (01/18/23) Anemia, unspecified (01/18/23) Acidosis, unspecified (01/18/23) Idiopathic hypotension (01/18/23) Hypotension, unspecified (01/18/23) Gastrointestinal hemorrhage, unspecified (01/18/23) Subjective Subjective Patient seen at bedside this afternoon after colonoscopy procedure. Tolerated procedure well. Still fairly fatigued post procedure. Denies any abdominal pain or discomfort. Denies any fevers or chills. No other acute concerns. Objective Data Objective Data Vital Signs: Vital Signs Temp Pulse Resp BP Pulse Ox O2 Del Method O2 Flow Rate 97.5 F L 87 20 H 108/73 100 Nasal Cannula 2 01/21/23 13:55 01/21/23 15:20 01/21/23 15:20 01/21/23 13:55 01/21/23 13:55 01/21/23 14:00 01/21/23 14:00 FiO2 30 01/19/23 09:00 Oxygen Flow Rate (L/min) 2 Oxygen Delivery Method Nasal Cannula Weight: 47.8 kg Body Mass Index (BMI) 18.6 Intake & Output: Intake and Output for Last 24 Hours 01/19/23 01/20/23 01/21/23 23:59 23:59 23:59 Intake Total 3919.42 / 3919.42 1353.09 / 1353.09 351 / 351 Output Total 1650 / 1650 1450 / 1650 200 / 200 Balance 2269.42 / 2269.42 -96.91 / -296.91 151 / 151 Medical Nutrition Assessment Dietitian: Malnutrition Criteria Met Start: 01/19/23 11:19 Freq: Status: Active Protocol: Document 01/19/23 11:23 GIDEON (Rec: 01/19/23 11:23 [facility] [id number]) Nutrition Malnutrition Evidence of Malnutrition Exists Yes Malnutrition (severe): Chronic Evidenced By Suboptimal Energy Intake ( Severe),Weight Loss (Severe), Physical Changes (Severe) Clinical Problem Chronic Disease or Condition Related Malnutrition Etiology related to inadequate energy intake Signs/Symptoms as evidenced by 23.2% unintended wt loss x 6 mo, po intake <50% of est nutritional needs x more than one month, obvious fat/muscle loss throughout body and BMI <16 Status Active Problem Recommendation Dietitian Recommendations/Changes As medically able, rec QUENTIN to liberal regular d/t signs and symptoms of malnutrition As medically able, rec chocolate ensure plus high protein 4x/day w/ medpass for increased nutrition if consumed As medically able, rec chocolate magic cup w/ lunch and dinner for increased nutrition if consumed Monitor for s/s of refeeding syndrome Lab / Micro Data 01/21/23 06:50 01/21/23 06:50 Labs: Laboratory Results - last 24 hr 01/21/23 06:50: WBC 7.8, RBC 3.93 L, Hgb 11.4 L, Hct 35.8 L, MCV 91.1, MCH 29.0, MCHC 31.8 L, RDW Std Deviation 51.9 H, RDW Coeff of Barbara 15.3 H, Plt Count 177, MPV 9.8, Immature Gran % (Auto) 0.400, Neut % (Auto) 76.2 H, Lymph % (Auto) 10.4 L, [place] % (Auto) 9.9, Eos % (Auto) 2.8, Baso % (Auto) 0.3, Absolute Neuts (auto) 5.9, Absolute Lymphs (auto) 0.81 L, Nucleated RBC % 0, Sodium 134 L, Potassium 4.4, Chloride 106, Carbon Dioxide 23.0, Anion Gap 5, BUN 22 H, Creatinine 1.31 H , Estim Creat Clear Calc 33.95, Est GFR (MDRD) Af Amer 69, Est GFR (MDRD) Non-Af 57 L, BUN/Creatinine Ratio 16.8, Glucose 97, Calcium 8.1 L Micro: Microbiology 01/18/23 12:02 Blood Culture (Wb) - Right Hand Blood Culture - Preliminary No growth in 48 hours. 01/18/23 11:56 Blood Culture (Wb) - Anticubital Left Blood Culture - Preliminary No growth in 48 hours. 01/18/23 21:15 Urine, Clean Catch Urine Culture - Final Culture exhibits no growth. 01/18/23 12:45 Stool Stool Occult Blood (BLESSING) - Final Physical Exam Const alert, oriented x3 and no apparent distress Constitutional Narrative: Thin elderly male, lying comfortably in bed, conversing normally, no acute distress. Appears fatigued. General Appearance: cooperative and comfortable HEENT normocephalic, head/scalp atraumatic, hearing grossly normal bilaterally, nasal mucous membranes and turbinates normal and moist oral mucous membranes Eyes PERRL, EOMs intact bilaterally and conjunctivae normal Neck full ROM, no lymphadenopathy and supple Lymph Lymphatic: no lymphadenopathy noted Chest inspection of chest normal Resp normal respiratory effort, normal air movement, no use of accessory muscles and clear to auscultation bilaterally Cardio regular rate, regular rhythm, no murmurs and peripheral pulses 2+ throughout GI normal to inspection, nondistended, normoactive bowel sounds, soft to palpation, non-tender and non-distended Back/Spine normal ROM Extremity normal to inspection, full ROM and no pedal edema Skin no rashes or lesions noted Psych mental status grossly normal Assessment & Plan Assessment/Plan (1) GI bleed: PLAN: Plan Patient is a 72-year-old male with history of COPD on home O2, peripheral vascular disease, GERD, BPH and hypertension who [facility] to [facility] 01[facility] with epigastric pain and generalized weakness. 1. GI bleed With acute blood loss anemia and hypotension on admission requiring ICU placement. 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 Attempted colonoscopy without bowel preparation given degree of anemia as noted below; hematin found in entire colon along with 2 small localized angiodysplastic lesions in ascending colon that were actively bleeding, treated with epinephrine. S/p repeat colonoscopy on 01/21, found to have nonbleeding external and internal hemorrhoids, as well as 20 mm polyp that was removed and area was injected; no active bleeding noted. ?GI following, appreciate recs. Continue PPI drip and octreotide drip for now, will likely de-escalate tomorrow. Monitor hemoglobin daily. 2. Acute blood loss anemia, known chronic anemia Secondary to GI bleed as noted above. Hemoglobin 5.4 on admit, dropped to 4.1 prior to any blood transfusion. Last known hemoglobin was 9.5 on 11/27/2022. S/p 3 units of packed red blood cells with improvement of hemoglobin to 8.1. Again had downtrend of hemoglobin to 6 on 01/19, s/p 2 more units of packed red blood cells with improvement in hemoglobin to 11.4. Hemoglobin stable at 10.8 on 01/20. Iron studies showed significant iron deficiency, iron deficit calculated to be approximately 650 mg. ?Treatment of GI bleed as noted above. Monitor hemoglobin daily. Will give 2 doses of 20 mg of IV iron today and tomorrow to replete iron stores. 3. Hypotension, resolved ? Suspected secondary to GI bleed and acute blood loss anemia as noted above. Blood pressure stable after patient received several units of packed red blood cells as noted above. Transferred out of ICU on 01/20. Has remained stable since then. 4. NOEL, improving ? Presumed secondary to hypotension from blood loss as noted above. Likely with some degree of ATN at this time. Creatinine 1.9 on admission, baseline appears to be around 1.0. Improved to 1.3 on 01/21. Good urine output. Monitor BMP daily. 5. COPD ? Per patient, has home O2 prescribed but had not been wearing it at home. Has consistently required 2 to 3 L nasal cannula since admission. Continue supplemental oxygen as needed. Continue home bronchodilators. 6. Peripheral vascular disease ? Has aspirin, Plavix, Xarelto 2.5 mg twice daily, statin noted on home med list. Unclear what patient is actually taking at home. Holding all AC and antiplatelet agents given GI bleed as above. Continue home statin. We will determine appropriate medication regimen on discharge. 7. Chronic debility ? PT/OT/case management following. Discussed patient's condition with family members today. Planning for home with home health care on discharge, likely tomorrow. Patient also qualifies for palliative referral for COPD/symptom management, and referral was placed. DVT prophylaxis: SCDs CODE STATUS: DNR CCA, DO NOT INTUBATE Expected disposition: Home with home health care, likely tomorrow Total clinical time spent by myself addressing the patient's medical issues, reviewing all the data, and collaborating with patient's care team: 35 minutes. Charges/Coding Visit Charges Inpatient E&M: 88858 Subs Hosp L2
--- NOTE | 2023-01-21 19:14 | NURSING ---
Reviewed charting with Peter Lopez RN
[2023-01-21 19:17] LABS: Vitamin B12 < 45 pg/mL (211-911)
[2023-01-22 02:30] VITALS: BP 122/69; PULSE 82; RESP 18; TEMP 36.6; O2SAT 93
[2023-01-22 05:40] VITALS: BMI 19.5
[2023-01-22 05:47] LABS: Absolute Lymphocyte Count 0.97 X10^3/uL (0.83-4.51); Absolute Neutrophil Count 6.1 X10^3/uL (2.0-7.7); Basophil# 0.03 X10^3/uL; Basophil% 0.4 % (0-1); Eosinophil# 0.46 X10^3/uL; Eosinophils% 5.5 % (0-5); Hematocrit 34.7 % (40-54); Hemoglobin 11.3 g/dL (13.0-16.5); Lymphocyte # 0.97 X10^3/ul (0.83-4.51); Lymphocyte % 11.6 % (19-41); Mean Corp Hgb Conc 32.6 g/dL (32-36); Mean Corpuscular Hgb 29.8 pg (27.0-32.0); Mean Corpuscular Volume 91.6 fL (80-94); Mean Platelet Vol. 10.5 fl (6.2-12.0); Monocyte# 0.76 X10^3/uL; Monocyte% 9.1 % (0-10); NRBC Flagged by Analyzer 0 % (0-5); Neutrophil # 6.12 X10^3/uL (2.7-7.7); Platelet Count 188 K/mm3 (150-450); RBC Distribution Width CV 15.2 % (11.6-14.6); RBC Distribution Width SD 50.9 fl (35.1-43.9); Red Blood Count 3.79 M/mm3 (4.6-6.2); White Blood Count 8.4 K/mm3 (4.4-11.0)
[2023-01-22 06:09] LABS: Anion Gap 6 (5-15); BUN 21 mg/dL (7-18); BUN/Creat Ratio 16.5 RATIO (10-20); Calcium,Total 7.9 mg/dL (8.5-10.1); Chloride 106 mmol/L (98-107); Creatinine, Serum 1.27 mg/dL (0.70-1.30); EST Glomerular Filtration Rate 59 mL/min (>60); Est Glom Filt Rate - Afr Amer 71 mL/min (>60); Estimated Creatinine Clearance 36.78 ml/min; Glucose 75 mg/dL (74-106); Potassium 4.5 mmol/L (3.5-5.1); Sodium Level 136 mmol/L (136-145)
[2023-01-22 07:42] VITALS: O2SAT 92
[2023-01-22 08:18] VITALS: O2SAT 92
[2023-01-22] MEDS: 0.9% Saline Lock 10 ML Syringe IV (10:13)
[2023-01-22 10:16] VITALS: BP 98/63; PULSE 78; RESP 16; TEMP 36.7; O2SAT 94
[2023-01-22] MEDS: Pantoprazole Sodium 40 MG Tablet PO (10:23)
--- NOTE | 2023-01-22 10:39 | CASEMGMT ---
RIZWANA was informed patient would like to complete advance directives. RIZWANA met with patient, introduced self and role at [facility]. Patient said he remembered someone said something about this, but he will probably wait until he gets home. Patient thanked RIZWANA for checking. Misty PRYOR
--- NOTE | 2023-01-22 11:00 | EX.PCM.PN.GI ---
Subjective Subjective Patient is doing well I gave him iron transfusion this morning. His last hemoglobin was up to 11.4. Objective Data Objective Data Vital Signs: Vital Signs Temp Pulse Resp BP Pulse Ox O2 Del Method O2 Flow Rate 98.0 F 78 16 98/63 94 Nasal Cannula 2 01/22/23 10:16 01/22/23 10:16 01/22/23 10:16 01/22/23 10:16 01/22/23 10:16 01/22/23 10:16 01/22/23 10:16 FiO2 30 01/19/23 09:00 Oxygen Flow Rate (L/min) 2 Oxygen Delivery Method Nasal Cannula Weight: 110 lb 10.753 oz Body Mass Index (BMI) 19.5 Intake & Output: Intake and Output for Last 24 Hours 01/20/23 01/21/23 01/22/23 23:59 23:59 23:59 Intake Total 1353.09 / 1353.09 721 / 721 1212.37 / 1212.37 Output Total 1450 / 1650 700 / 700 200 / 200 Balance -96.91 / -296.91 1012.37 / 1012.37 Lab / Micro Data 01/22/23 05:16 01/22/23 05:16 Labs: Laboratory Results - last 24 hr 01/18/23 11:50: Diff Path Review Reviewed 01/18/23 15:20: Diff Path Review Reviewed, Vitamin B12 < 45 L 01/19/23 06:17: Diff Path Review Reviewed 01/22/23 05:16: WBC 8.4, RBC 3.79 L, Hgb 11.3 L, Hct 34.7 L, MCV 91.6, MCH 29.8, MCHC 32.6, RDW Std Deviation 50.9 H, RDW Coeff of Barbara 15.2 H, Plt Count 188, MPV 10.5, Immature Gran % (Auto) 0.400, Neut % (Auto) 73.0 H, Lymph % (Auto) 11.6 L, [place] % (Auto) 9.1, Eos % (Auto) 5.5 H, Baso % (Auto) 0.4, Absolute Neuts (auto) 6.1, Absolute Lymphs (auto) 0.97, Nucleated RBC % 0, Sodium 136, Potassium 4.5, Chloride 106, Carbon Dioxide 24.0, Anion Gap 6, BUN 21 H, Creatinine 1.27, Estim Creat Clear Calc 36.78, Est GFR (MDRD) Af Amer 71, Est GFR (MDRD) Non-Af 59 L, BUN/Creatinine Ratio 16.5, Glucose 75, Calcium 7.9 L Micro: Microbiology 01/18/23 12:02 Blood Culture (Wb) - Right Hand Blood Culture - Preliminary No growth in 48 hours. 01/18/23 11:56 Blood Culture (Wb) - Anticubital Left Blood Culture - Preliminary No growth in 48 hours. 01/18/23 21:15 Urine, Clean Catch Urine Culture - Final Culture exhibits no growth. 01/18/23 12:45 Stool Stool Occult Blood (BLESSING) - Final Physical Exam Const alert, oriented x3 and no apparent distress Constitutional Narrative: Thin elderly male, lying comfortably in bed, conversing normally, no acute distress. Appears fatigued. General Appearance: cooperative and comfortable HEENT normocephalic, head/scalp atraumatic, hearing grossly normal bilaterally, nasal mucous membranes and turbinates normal and moist oral mucous membranes Eyes PERRL, EOMs intact bilaterally and conjunctivae normal Neck full ROM, no lymphadenopathy and supple Lymph Lymphatic: no lymphadenopathy noted Chest inspection of chest normal Resp normal respiratory effort, normal air movement, no use of accessory muscles and clear to auscultation bilaterally Cardio regular rate, regular rhythm, no murmurs and peripheral pulses 2+ throughout GI normal to inspection, nondistended, normoactive bowel sounds, soft to palpation, non-tender and non-distended Back/Spine normal ROM Extremity normal to inspection, full ROM and no pedal edema Skin no rashes or lesions noted Psych mental status grossly normal Assessment & Plan Assessment/Plan (1) Anemia: QUALIFIERS: Anemia type: iron deficiency Iron deficiency anemia type: chronic blood loss Qualified Code(s): D50.0 - Iron deficiency anemia secondary to blood loss (chronic) (2) Hypotension: QUALIFIERS: Hypotension type: idiopathic hypotension Qualified Code(s): I95.0 - Idiopathic hypotension (3) Acidosis, lactic: PLAN: Plan 71 yr old male with anemia; he had bilat LE vascular surgery, had hematemesis while hospitalized, hgb decreased to low of 7.4, received 1 unit PRBC, he is on PPI now, he is on ASA and plavix. No further evidence of GIB. Hgb went up to 10.9. Currently his hemoglobin is 5.4. -Anemia- I suspect CATA from Chronic blood loss anemia. I suspect it is an upper GI bleed because of his COPD, PAD and the use of antiplatelets and anticoagulants. We will perform an upper endoscopy and possibly a colonoscopy. -Continue Octreotide and PPI Drip -Monitor h/h -Keep hematocrit > 35 Charges/Coding Visit Charges Inpatient E&M: 59893 Subs Hosp L3
--- NOTE | 2023-01-22 11:07 | DCINST_ITS ---
Discharge Instructions Diet Discharge Diet: No restrictions Activity Discharge Activity: Return to Normal Activity Weight Bearing Status: Weight bearing as tolerated Follow Up Care Please Follow Up With: Dom Chaidez MD When: As needed Test Results: Test results from this visit will be discussed in further detail at your follow- up appointment, if applicable. Pending Tests Upon Discharge: None Discharge Plan Admission Admit Date/Time: 01/18/23 14:08 Primary Reason for Your Visit: GI bleed Attending Provider: Otoniel Prasad Primary Care Provider: Dom Chaidez Consulting Providers: Lizzy Meza; Franco Collins; Hugh Ferrer; Huy Gonzalez; Nikolas Bernstein; Shelia Cisneros ROADW[employer] TECHNICIAN Instructions Additional Instructions / Restrictions: Please HOLD on taking Xarelto for 1 week post discharge given your recent GI bleed; can restart on 01/29. Also HOLD on taking your blood pressure medication (valsartan?hydrochlorothiazide) for now, given that your blood pressures have been slightly low to normal while in the hospital. Can discuss with your primary care doctor about when to start those again as needed. Discharge Orders/Prescriptions Prescriptions: New pantoprazole 40 mg Tablet,Delayed Release (Dr/Ec) 40 mg PO BID 30 Days Qty: 60 0RF Continued aspirin [Adult Low Dose Aspirin] 81 mg tablet,delayed release (DR/EC) 81 mg PO DAILY Hold Instructions: Order Changed albuterol sulfate 90 mcg/actuation HFA aerosol inhaler 1 inh inhalation Patient Comments: INHALE 2 PUFFS BY MOUTH EVERY 4 HOURS NEEDED rosuvastatin 20 mg tablet 20 mg PO DAILY Patient Comments: TAKE 1 TABLET BY MOUTH ONCE DAILY glucose 4 GM tablet,chewable 4 g PO DAILY cilostazol 50 mg tablet 50 mg PO DAILY guaifenesin [Mucus Relief ER] 600 mg Tablet Extended Release 12hr 600 mg PO BID 30 Days Qty: 60 0RF tamsulosin 0.4 mg Capsule 0.4 mg PO DAILY 30 Days Qty: 30 0RF Anoro Ellipta 62.5-25 mcg/actuation Blister With Device 1 inh inhalation DAILY Qty: 30 0RF Held Xarelto 2.5 mg tablet 2.5 mg PO BID Qty: 60 5RF Hold Instructions: Resume on 01/29/23. Discontinued valsartan-hydrochlorothiazide 320-12.5 mg tablet 1 tab PO DAILY Patient Comments: TAKE 1 TABLET BY MOUTH ONCE DAILY pantoprazole 40 mg tablet,delayed release (DR/EC) 40 mg PO DAILY Qty: 90 3RF diltiazem HCl 180 MG capsule 180 mg PO DAILY Hold Instructions: Please follow-up with your PCP to monitor your BP and manage any further changes to your medications. Patient Comments: BLOOD PRESSURE clopidogrel 75 mg Tablet 75 mg PO DAILY 90 Days Qty: 90 3RF rosuvastatin 10 mg tablet Patient Comments: TAKE 1 TABLET BY MOUTH ONCE DAILY Referrals / Follow Up: Dom Chaidez MD [Primary Care Provider] - Disposition Disposition (needs filled in before D/C Order can be placed): Home Health Service
--- NOTE | 2023-01-22 11:13 | DS.PCM_ITS ---
Providers Date of Admission: 01/18/23 Date of Discharge: 01/22/23 Primary Care Physician: Dr. Dom Chaidez MD Consultations 01/18/23 14:33 Consult: Gastroenterology Routine Consulting Provider: [facility] Reason for Consult: Concern for GIB EMERGENT Consult: No Notified: Yes Date Notified: 01/18/23 Time Notified: 14:12 Method of Notification: Verbal 01/18/23 14:51 Consult: Community Engagement Leader / Pulmonary Medicine Routine Consulting Provider: Pulmonary Medicine jose [place] Reason for Consult: Hypotention, lactic 6.8, suspect UGIB w/ hgb 5.4 EMERGENT Consult: No Notified: Yes Date Notified: 01/18/23 Time Notified: 14:51 Method of Notification: Text Method of Consult:: In-Person Reason For Visit: ANEMIA, HYPOTENSION, LACTIC ACIDEMIA Diagnosis Discharge Diagnosis (1) GI bleed: Status: Acute Code(s): K92.2 - Gastrointestinal hemorrhage, unspecified Medications at Discharge Home Medications glucose 4 gram chewable tablet 4 g PO DAILY sugar 01/18/20 aspirin 81 mg tablet,delayed release (Adult Low Dose Aspirin) 81 mg PO DAILY SUPPLEMENT 05/02/22 cilostazol 50 mg tablet 50 mg PO DAILY BONE 07/15/22 guaifenesin 600 mg tablet, extended release 12 hr (Mucus Relief ER) 600 mg PO BID 30 days #60 tabs 08/03/22 tamsulosin 0.4 mg capsule 0.4 mg PO DAILY 30 days #30 caps 08/03/22 umeclidinium 62.5 mcg-vilanterol 25 mcg/actuation powdr for inhalation (Anoro Ellipta) 1 inh inhalation DAILY #30 days 08/03/22 albuterol sulfate 90 mcg/actuation aerosol inhaler 1 inh inhalation 08/20/22 rosuvastatin 20 mg tablet 20 mg PO DAILY 08/20/22 rivaroxaban 2.5 mg tablet (Xarelto) 2.5 mg PO BID #60 tabs 09/03/22 pantoprazole 40 mg tablet,delayed release 40 mg PO BID 30 days #60 tabs 01/22/23 Hospital Course Procedures Colonoscopy, EGD and - (Chest x-ray, CTA abdomen/pelvis) Summary of Care Provided Minutes Spent on Discharge: 38 Hospital Course: Patient is a 72-year-old male with history of COPD on home O2, peripheral vascular disease, GERD, BPH and hypertension who presented to [facility] on 01/18/2023 with epigastric pain and generalized weakness. Multiple medical issues addressed during hospitalization as noted below. GI bleed: With acute blood loss anemia and hypotension on admission requiring ICU placement. GI followed, s/p EGD 01/19 with 4 nonbleeding angiodysplastic lesions in duodenum treated with heater probe. Attempted colonoscopy without bowel preparation given degree of anemia as noted below; hematin found in entire colon along with 2 small localized angiodysplastic lesions in ascending colon that were actively bleeding, treated with epinephrine. S/p repeat colonoscopy on 01/21, found to have nonbleeding external and internal hemorrhoids, as well as 20 mm polyp that was removed and area was injected; no active bleeding noted. Patient was on PPI drip and octreotide drip for multiple days, de-escalated to p.o. PPI twice daily on discharge. We will plan for outpatient follow-up with GI as needed. Acute blood loss anemia, known chronic anemia: Secondary to GI bleed as noted above. Hemoglobin 5.4 on admit, dropped to 4.1 prior to any blood transfusion. Last known hemoglobin was 9.5 on 11/27/2022. S/p 3 units of packed red blood cells with improvement of hemoglobin to 8.1. Again had downtrend of hemoglobin to 6 on 01/19, s/p 2 more units of packed red blood cells with improvement in hemoglobin to 11.4. Hemoglobin stable at 10.8 on 01/20. Iron studies showed significant iron deficiency, iron deficit calculated to be approximately 650 mg. Received 2 doses of 2050 mg of IV iron prior to discharge. Hypotension: Suspected secondary to GI bleed and acute blood loss anemia as noted above. Blood pressure stable after patient received several units of packed red blood cells as noted above. Transferred out of ICU on 01/20. Blood pressure remained stable for remainder of hospitalization. NOEL, improved: Presumed secondary to hypotension from blood loss as noted above. Likely with some degree of ATN. Creatinine 1.9 on admission, baseline appears to be around 1.0. Improved to 1.3 prior to discharge. Good urine output throughout hospitalization. Can recheck BMP in outpatient setting in 1 to 2 weeks. Peripheral vascular disease: On aspirin and Xarelto 2.5 mg twice daily at home. Xarelto was held on discharge per GI recs; PLEASE RESTART ON 01/29. Chronic debility: PT/OT/case management followed. Patient was discharged home with home health care. Also qualified for palliative referral COPD/into management and referral was placed. Discharge diagnoses: ? GI bleed, resolved ? Acute blood loss anemia in setting of known chronic iron deficiency anemia ? Hypertension, resolved ? NOEL, improved ? Peripheral vascular disease ? COPD ? Chronic debility Total clinical time spent by myself addressing the patient's discharge needs: 45 minutes. Physical Exam Const alert, oriented x3 and no apparent distress Constitutional Narrative: Thin elderly male, lying comfortably in bed, conversing normally, no acute distress. Appears fatigued. General Appearance: cooperative and comfortable HEENT normocephalic, head/scalp atraumatic, hearing grossly normal bilaterally, nasal mucous membranes and turbinates normal and moist oral mucous membranes Eyes PERRL, EOMs intact bilaterally and conjunctivae normal Neck full ROM, no lymphadenopathy and supple Lymph Lymphatic: no lymphadenopathy noted Chest inspection of chest normal Resp normal respiratory effort, normal air movement, no use of accessory muscles and clear to auscultation bilaterally Cardio regular rate, regular rhythm, no murmurs and peripheral pulses 2+ throughout GI normal to inspection, nondistended, normoactive bowel sounds, soft to palpation, non-tender and non-distended Back/Spine normal ROM Extremity normal to inspection, full ROM and no pedal edema Skin no rashes or lesions noted Psych mental status grossly normal Medical Records Data Medical Nutrition Assessment Dietitian: Malnutrition Criteria Met Start: 01/19/23 11:19 Freq: Status: Active Protocol: Document 01/19/23 11:23 [facility] (Rec: 01/19/23 11:23 [facility] [id number]) Nutrition Malnutrition Evidence of Malnutrition Exists Yes Malnutrition (severe): Chronic Evidenced By Suboptimal Energy Intake ( Severe),Weight Loss (Severe), Physical Changes (Severe) Clinical Problem Chronic Disease or Condition Related Malnutrition Etiology related to inadequate energy intake Signs/Symptoms as evidenced by 23.2% unintended wt loss x 6 mo, po intake <50% of est nutritional needs x more than one month, obvious fat/muscle loss throughout body and BMI <16 Status Active Problem Recommendation Dietitian Recommendations/Changes As medically able, rec QUENTIN to liberal regular d/t signs and symptoms of malnutrition As medically able, rec chocolate ensure plus high protein 4x/day w/ medpass for increased nutrition if consumed As medically able, rec chocolate magic cup w/ lunch and dinner for increased nutrition if consumed Monitor for s/s of refeeding syndrome Weight / BMI Weight Weight: 50.2 kg Body Mass Index (BMI) 19.5 ABG / Lab / Microbiology Data 01/22/23 05:16 01/22/23 05:16 Laboratory: Laboratory Results - last 24 hr 01/18/23 15:20: Vitamin B12 < 45 L 01/22/23 05:16: WBC 8.4, RBC 3.79 L, Hgb 11.3 L, Hct 34.7 L, MCV 91.6, MCH 29.8, MCHC 32.6, RDW Std Deviation 50.9 H, RDW Coeff of Barbara 15.2 H, Plt Count 188, MPV 10.5, Immature Gran % (Auto) 0.400, Neut % (Auto) 73.0 H, Lymph % (Auto) 11.6 L, [place] % (Auto) 9.1, Eos % (Auto) 5.5 H, Baso % (Auto) 0.4, Absolute Neuts (auto) 6.1, Absolute Lymphs (auto) 0.97, Nucleated RBC % 0, Sodium 136, Potassium 4.5, Chloride 106, Carbon Dioxide 24.0, Anion Gap 6, BUN 21 H, Creatinine 1.27, Estim Creat Clear Calc 36.78, Est GFR (MDRD) Af Amer 71, Est GFR (MDRD) Non-Af 59 L, BUN/Creatinine Ratio 16.5, Glucose 75, Calcium 7.9 L Microbiology: Microbiology 01/18/23 12:02 Blood Culture (Wb) - Right Hand Blood Culture - Preliminary No growth in 48 hours. 01/18/23 11:56 Blood Culture (Wb) - Anticubital Left Blood Culture - Preliminary No growth in 48 hours. 01/18/23 21:15 Urine, Clean Catch Urine Culture - Final Culture exhibits no growth. 01/18/23 12:45 Stool Stool Occult Blood (BLESSING) - Final D/C Instructions Discharge Diet: No restrictions Weight Bearing Status: Weight bearing as tolerated Pending Tests Upon Discharge: None Please Follow Up With: Dom Chaidez MD When: As needed Meaningful Use Info Meaningful Use Diagnoses (Choose all that apply): None applicable Discharge Plan Admission Admit Date/Time: 01/18/23 14:08 Primary Reason for Your Visit: GI bleed Attending Provider: Otoniel Prasad Primary Care Provider: Dom Chaidez Consulting Providers: Lizzy Meza; Franco Collins; Hugh Ferrer; Huy Gonzalez; Nikolas Bernstein; Shelia Cisneros [employer] Instructions Additional Instructions / Restrictions: Please HOLD on taking Xarelto for 1 week post discharge given your recent GI bleed; can restart on 01/29. Also HOLD on taking your blood pressure medication (valsartan?hydrochlorothiazide) for now, given that your blood pressures have been slightly low to normal while in the hospital. Can discuss with your primary care doctor about when to start those again as needed. Discharge Orders/Prescriptions Prescriptions: New pantoprazole 40 mg Tablet,Delayed Release (Dr/Ec) 40 mg PO BID 30 Days Qty: 60 0RF Continued aspirin [Adult Low Dose Aspirin] 81 mg tablet,delayed release (DR/EC) 81 mg PO DAILY Hold Instructions: Order Changed albuterol sulfate 90 mcg/actuation HFA aerosol inhaler 1 inh inhalation Patient Comments: INHALE 2 PUFFS BY MOUTH EVERY 4 HOURS NEEDED rosuvastatin 20 mg tablet 20 mg PO DAILY Patient Comments: TAKE 1 TABLET BY MOUTH ONCE DAILY glucose 4 GM tablet,chewable 4 g PO DAILY cilostazol 50 mg tablet 50 mg PO DAILY guaifenesin [Mucus Relief ER] 600 mg Tablet Extended Release 12hr 600 mg PO BID 30 Days Qty: 60 0RF tamsulosin 0.4 mg Capsule 0.4 mg PO DAILY 30 Days Qty: 30 0RF Anoro Ellipta 62.5-25 mcg/actuation Blister With Device 1 inh inhalation DAILY Qty: 30 0RF Held Xarelto 2.5 mg tablet 2.5 mg PO BID Qty: 60 5RF Hold Instructions: Resume on 01/29/23. Discontinued valsartan-hydrochlorothiazide 320-12.5 mg tablet 1 tab PO DAILY Patient Comments: TAKE 1 TABLET BY MOUTH ONCE DAILY pantoprazole 40 mg tablet,delayed release (DR/EC) 40 mg PO DAILY Qty: 90 3RF diltiazem HCl 180 MG capsule 180 mg PO DAILY Hold Instructions: Please follow-up with your PCP to monitor your BP and manage any further changes to your medications. Patient Comments: BLOOD PRESSURE clopidogrel 75 mg Tablet 75 mg PO DAILY 90 Days Qty: 90 3RF rosuvastatin 10 mg tablet Patient Comments: TAKE 1 TABLET BY MOUTH ONCE DAILY Referrals / Follow Up: Dom Chaidez MD [Primary Care Provider] - 01/22/23 4:00 pm Disposition Disposition (needs filled in before D/C Order can be placed): Home, Self Care Charges/Coding Visit Charges Inpatient E&M: 35977 Disch Hosp >30min
--- NOTE | 2023-01-22 12:05 | CHAPLAIN ---
Type of Pastoral Visit _x__ Initial Visit ___ Follow-up Visit ___ On-call Visit ___ General Patient Visit ___ Spiritual Assessment ___ Family Conference ___ Bereavement ___ Rapid Response ___ Code Blue ___ Other (describe below) Pastoral Care Referral From _x__ Patient ___ Family ___ Nurse ___ Physician ___ Prior Authorization Nurse ___ Inhalation Therapy Teacher ___ Other (describe below) Sacrament/Intervention _x__ Active listening ___ Anointing ___ Hinduism ___ Bereavement ___ Communion ___ Farida exploration ___ ___ Life review ___ Prayer ___ Reconciliation ___ Sacrament of Sick _x__ Supportive presence ___ Wedding ___ Other (describe below) Pastoral Comments patient reports that he expects to be discharged to home today; pt says he has good support from family; pt says that he sleeps a lot and just accepts his situation for what it is; pt says he has no further needs or wants;
[2023-01-22 12:46] LABS: Pathologist Review Reviewed
[2023-01-22 12:46] LABS: Pathologist Review Reviewed
[2023-01-22 12:58] LABS: Pathologist Review Reviewed
--- NOTE | 2023-01-27 10:05 | CASEMGMT ---
Addendum entered by Peter Paez 01/27/23 10:08: Sara sent message via backline stating Dr Chaidez did agree to follow. Original Note: KIKO POTTER NOTE: Per Sara @ [facility], they have pt on the schedule for tomorrow 01/28 for SOC as long as Dr Chaidez agrees to follow. Juan Daniel ENNIS RN CM
== END 2023-01-22 14:32 | disposition home or self-care (01) | DRG 377 ==
LOC: ED 13:24 → ICU 16:12 → PCU 01-21 07:44
PROVIDERS: Internal Medicine Gastroenterology; Admitting Provider Internal Medicine; Emergency Provider Emergency Medicine; PCP Family Medicine; Visit Provider Hospitalist
PROC: 0DJ08ZZ Inspection of Upper Intestinal Tract, Via Natural or Artificial Opening Endoscopic (ICD-10-PCS; CPT 43235; principal; 2023-01-19 09:30)
PROC: 0DJD8ZZ Inspection of Lower Intestinal Tract, Via Natural or Artificial Opening Endoscopic (ICD-10-PCS; CPT 45378; principal; 2023-01-21 11:25)
DX: K55.21 Angiodysplasia of colon with hemorrhage (principal); E43 Unspecified severe protein-calorie malnutrition; N17.9 Acute kidney failure, unspecified; E87.20 Acidosis, unspecified; D62 Acute posthemorrhagic anemia; Z68.1 Body mass index [BMI] 19.9 or less, adult; D63.8 Anemia in other chronic diseases classified elsewhere; I70.211 Atherosclerosis of native arteries of extremities with intermittent claudication, right leg; J44.9 Chronic obstructive pulmonary disease, unspecified; I10 Essential (primary) hypertension; I95.0 Idiopathic hypotension; E78.5 Hyperlipidemia, unspecified; F17.210 Nicotine dependence, cigarettes, uncomplicated; K57.30 Diverticulosis of large intestine without perforation or abscess without bleeding; K44.9 Diaphragmatic hernia without obstruction or gangrene; K62.3 Rectal prolapse; K64.8 Other hemorrhoids; K64.2 Third degree hemorrhoids; K63.5 Polyp of colon; Z79.02 Long term (current) use of antithrombotics/antiplatelets; Z79.82 Long term (current) use of aspirin; Z66 Do not resuscitate; R53.81 Other malaise
CPT/HCPCS: 36415; 71045; 74174; 80048; 80053; 80076; 81001; 82274; 82607; 82728; 82746; 83540; 83550; 83605; 83690; 83735; 84100; 84443; 84484; 85014; 85018; 85025; 85027; 85045; 85610; 85730; 86850; 86900; 86901; 86920; 86922; 86965; 87040; 87086; 88305; 93005; 94640; 94762; 97162; 97166; 97530; 97535; 97802; 99285; 99406; J7030; J7050; J7120; P9016; P9035; Q9967; A4216; J2405; J2916; J3490

== ENCOUNTER → 2023-01-24 | Outpatient (CLI) | payer MEDICARE, OTHER, SELFPAY ==
[2023-01-24 17:36] LABS: Absolute Lymphocyte Count 1.06 X10^3/uL (0.83-4.51); Absolute Neutrophil Count 4.8 X10^3/uL (2.0-7.7); Basophil# 0.04 X10^3/uL; Basophil% 0.6 % (0-1); Eosinophil# 0.26 X10^3/uL; Eosinophils% 3.8 % (0-5); Hematocrit 41.9 % (40-54); Hemoglobin 12.5 g/dL (13.0-16.5); Lymphocyte # 1.06 X10^3/ul (0.83-4.51); Lymphocyte % 15.4 % (19-41); Mean Corp Hgb Conc 29.8 g/dL (32-36); Mean Corpuscular Hgb 28.7 pg (27.0-32.0); Mean Corpuscular Volume 96.1 fL (80-94); Mean Platelet Vol. 10.4 fl (6.2-12.0); Monocyte# 0.75 X10^3/uL; Monocyte% 10.9 % (0-10); NRBC Flagged by Analyzer 0 % (0-5); Neutrophil # 4.75 X10^3/uL (2.7-7.7); Platelet Count 272 K/mm3 (150-450); RBC Distribution Width CV 15.3 % (11.6-14.6); RBC Distribution Width SD 54.1 fl (35.1-43.9); Red Blood Count 4.36 M/mm3 (4.6-6.2); White Blood Count 6.9 K/mm3 (4.4-11.0)
[2023-01-24 17:43] LABS: POSITIVE COUNT NO; POSITIVE DIFFERENTIAL NO; POSITIVE MORPHOLOGY NO
[2023-01-24 18:11] LABS: Anion Gap 3 (5-15); BUN 18 mg/dL (7-18); BUN/Creat Ratio 16.4 RATIO (10-20); Calcium,Total 8.6 mg/dL (8.5-10.1); Chloride 106 mmol/L (98-107); EST Glomerular Filtration Rate 70 mL/min (>60); Est Glom Filt Rate - Afr Amer 84 mL/min (>60); Ferritin 706 ng/mL (26-388); Glucose 89 mg/dL (74-106); Iron 48 ug/dL (65-175); Iron Binding Capacity,Total 345 ug/dL (250-450); Potassium 4.2 mmol/L (3.5-5.1); Sodium Level 138 mmol/L (136-145)
== END | disposition home or self-care (01) ==
LOC: MFPLAB 14:25
PROVIDERS: PCP Family Medicine; Visit Provider Family Medicine
DX: D64.9 Anemia, unspecified (principal); N17.9 Acute kidney failure, unspecified
CPT/HCPCS: 36415; 80048; 82728; 83540; 83550; 85025

== ENCOUNTER 2023-02-12 13:11 | Inpatient (IN) | payer MEDICARE, OTHER, SELFPAY ==
[2023-02-12] VITALS (12 sets, daily range): BP systolic 101–133; BP diastolic 54–75; PULSE 80–104; RESP 15–25; TEMP 36.6–37.1; O2SAT 90–99; BMI 16.9; BMI 16.8
[2023-02-12 14:04] LABS: Absolute Lymphocyte Count 1.18 X10^3/uL (0.83-4.51); Absolute Neutrophil Count 11.1 X10^3/uL (2.0-7.7); Basophil# 0.02 X10^3/uL; Basophil% 0.2 % (0-1); Hematocrit 45.7 % (40-54); Hemoglobin 13.9 g/dL (13.0-16.5); Lymphocyte # 1.18 X10^3/ul (0.83-4.51); Lymphocyte % 8.9 % (19-41); Mean Corp Hgb Conc 30.4 g/dL (32-36); Mean Corpuscular Hgb 27.9 pg (27.0-32.0); Mean Corpuscular Volume 91.6 fL (80-94); Monocyte# 0.87 X10^3/uL; Monocyte% 6.6 % (0-10); NRBC Flagged by Analyzer 0 % (0-5); Neutrophil # 11.05 X10^3/uL (2.7-7.7); Neutrophil % 83.8 % (47-70); POSITIVE MORPHOLOGY YES; Platelet Count 190 K/mm3 (150-450); RBC Distribution Width CV 15.2 % (11.6-14.6); RBC Distribution Width SD 50.6 fl (35.1-43.9); Red Blood Count 4.99 M/mm3 (4.6-6.2); White Blood Count 13.2 K/mm3 (4.4-11.0)
[2023-02-12] MEDS: 0.9% Normal Saline (1000mL) 1,000 ML 150 ML IV (14:07)
[2023-02-12] MEDS: Ipratropium/Albuterol Sulfate 3 ML AMPUL.NEB INHALATION ×2 (14:11→20:54)
[2023-02-12 14:14] LABS: Differential Indicated SCAN CRITERIA MET
--- NOTE | 2023-02-12 14:15 | RAD_ITS ---
STUDY: X-RAY CHEST REASON FOR EXAM: Male, 72 years old. Sob TECHNIQUE: Single AP portable view of the chest. COMPARISON: Comparison is made with prior study dated January 18, 2023. FINDINGS: EKG electrodes are seen. Patchy right lower lobe infiltrate. There is no demonstrated pleural abnormality. Normal size heart. Normal mediastinum and clara. Normal visualized pulmonary arteries. There is atherosclerotic calcification of the aortic arch with tortuosity. There is a levoscoliosis of the thoracic spine. Normal visualized ribs, clavicles, and shoulders. There is no demonstrated abnormality of the visualized soft tissue structures of the upper abdomen. RAD/Chest 1 View (Portable) IMPRESSION: Patchy right lower lobe infiltrate. Electronically Signed: Prasad Felton MD at 14:36 EDT ,
--- NOTE | 2023-02-12 14:17 | CT_ITS ---
STUDY: CT ABDOMEN AND PELVIS WITHOUT CONTRAST REASON FOR EXAM: Male, 72 years old. Abd pain, leukocytosis (+Covid) RADIATION DOSAGE (If Supplied By Facility): CTDIvol = ( 6.04 ) mGy, DLP = ( 250.64 ) mGycm TECHNIQUE: Transaxial images were obtained from the dome of the diaphragm to the symphysis pubis without oral contrast, and without intravenous contrast. Sagittal and coronal images were reconstructed. Individualized dose optimization techniques were used for this CT. COMPARISON: Comparison is made with prior examination dated January 19, 2023. FINDINGS: Emphysematous changes. Infiltration in the right lower lobe. Levoscoliosis of the thoracic spine. Coronary artery calcification. Normal liver. Normal gallbladder and extrahepatic biliary system. Normal spleen. Normal pancreas. Normal bilateral adrenal glands. Normal right kidney. Normal left kidney. Normal visualized stomach. Normal small intestine. Moderate amount of fecal material is seen in the colon. There is non-visualization of the appendix. Extensive atherosclerotic calcification of the abdominal aorta and the major visceral branches. There is evidence of a femoral-femoral bypass graft. Normal inferior vena cava. Normal retroperitoneum. Distended urinary bladder. The prostate measures 4.7 cm x 3.2 cm. Sense of prior anterior abdominal wall hernia repair with a mesh. Levoscoliosis. CT/Abdomen/Pelvis without Cont IMPRESSION: Right lower lobe infiltrate. Extensive atherosclerotic calcification of the abdominal aorta as well as the major visceral branches. Electronically Signed: Prasad Felton MD at 15:02 EDT ,
[2023-02-12 14:18] LABS: AST(SGOT) 32 U/L (15-37); Alanine Aminotransfer ALT/SGPT 20 U/L (16-61); Albumin, Serum 2.3 g/dL (3.2-5.0); Alkaline Phosphatase 78 U/L (45-117); Anion Gap 6 (5-15); BUN 22 mg/dL (7-18); BUN/Creat Ratio 21.6 RATIO (10-20); Bilirubin, Direct 0.42 mg/dL (0.00-0.30); Calcium,Total 8.8 mg/dL (8.5-10.1); Chloride 92 mmol/L (98-107); Creatinine, Serum 1.02 mg/dL (0.70-1.30); EST Glomerular Filtration Rate 76 mL/min (>60); Est Glom Filt Rate - Afr Amer 92 mL/min (>60); Estimated Creatinine Clearance 39.69 ml/min; Globulin 4.4 g/dL (2.2-4.2); Glucose 64 mg/dL (74-106); Lipase 65 U/L (13-75); Potassium 3.6 mmol/L (3.5-5.1); Protein, Total 6.7 g/dL (6.4-8.2); Sodium Level 129 mmol/L (136-145)
--- NOTE | 2023-02-12 14:34 | CT_ITS ---
STUDY: CT CHEST WITHOUT CONTRAST REASON FOR EXAM: Male, 72 years old. Pneumonia. Covid RADIATION DOSAGE (If Supplied By Facility): CTDIvol = ( 6.43 ) mGy, DLP = ( 252.17 ) mGycm TECHNIQUE: Transaxial imaging was performed without the administration of intravenous contrast material. Individualized dose optimization techniques were used for this CT. COMPARISON: Comparison is made with prior CT scan of the thorax dated July 15, 2022 and chest radiograph done earlier today. FINDINGS: CHEST Hyperinflation. Diffuse emphysematous changes with bullous formation in the left lower lobe. Right lower lobe infiltrate. There is no demonstrated pleural abnormality. There are calcifications of the coronary arteries. Normal mediastinum. Normal hilar regions. Normal unenhanced pulmonary arteries. There is atherosclerotic calcification of the aortic arch with tortuosity and elongation of the aortic arch and descending thoracic aorta. Levoconvex scoliosis. Multilevel degenerative changes. There is no demonstrated abnormality of the visualized upper abdomen. CT/Chest without Contrast IMPRESSION: Right lower lobe infiltrate. Hyperinflation and emphysema. Electronically Signed: Prasad Felton MD at 15:05 EDT ,
[2023-02-12 14:35] LABS: Lactic Acid 1.4 mmol/L (0.4-1.9)
[2023-02-12 14:40] LABS: Differential Comment SCANNED
[2023-02-12] MEDS: Dextrose 50%-Water 25 GM/50 ML DISP.SYRIN IV (14:45)
--- NOTE | 2023-02-12 15:09 | EDS_ITS ---
HPI History of Present Illness Chief Complaint: Abd Pain Informant: patient and family Onset/Context/Timing Onset: Days Narrative Narrative: Patient presents secondary to abdominal pain with generalized fatigue and weakness along with shortness of breath. Patient was admitted to the hospital in early January with a GI bleed, respiratory failure, lactic acidosis. He states that he felt well for about a week after leaving the hospital but then has had a progressive decline in his status since then. He has a history of COPD with a chronic cough that is not significantly changed. He has generalized weakness and abdominal pain. He states he has not eaten anything in the last 3 days or taken his medication. Family states he is normally on 2 L of oxygen via nasal cannula and sats in the low 90s. At the time of my examination he was on 4 L and satting 88%. Patient did test positive for COVID yesterday and does have a family member at home with COVID. [facility] Medical History Acute respiratory failure with hypoxemia Alcohol abuse Back pain Chronic bullous emphysema COPD (chronic obstructive pulmonary disease) COPD exacerbation Edema Hard of hearing Head injury Heartburn High cholesterol History of stress test HTN (hypertension) Hypoglycemia Incidental pulmonary nodule, less than or equal to 3mm Leg cramps Leg pain Neuropathy Osteoporosis PAOD (peripheral arterial occlusive disease) Passed out Peripheral arterial occlusive disease Shortness of breath Smoker Wears eyeglasses Home Medications glucose 4 gram chewable tablet 4 g PO DAILY sugar 01/18/20 [History Last Taken 01/18/20] aspirin 81 mg tablet,delayed release (Adult Low Dose Aspirin) 81 mg PO DAILY SUPPLEMENT 05/02/22 [History Last Taken 07/28/22] cilostazol 50 mg tablet 50 mg PO DAILY BONE 07/15/22 [History Last Taken Unknown] guaifenesin 600 mg tablet, extended release 12 hr (Mucus Relief ER) 600 mg PO BID 30 days #60 tabs 08/03/22 [Rx Last Taken Unknown] tamsulosin 0.4 mg capsule 0.4 mg PO DAILY 30 days #30 caps 08/03/22 [Rx Last Taken Unknown] umeclidinium 62.5 mcg-vilanterol 25 mcg/actuation powdr for inhalation (Anoro Ellipta) 1 inh inhalation DAILY #30 days 08/03/22 [Rx Last Taken Unknown] albuterol sulfate 90 mcg/actuation aerosol inhaler 1 inh inhalation 08/20/22 [History Last Taken Unknown] rosuvastatin 20 mg tablet 20 mg PO DAILY 08/20/22 [History Last Taken Unknown] rivaroxaban 2.5 mg tablet (Xarelto) 2.5 mg PO BID #60 tabs 09/03/22 [Rx Last Taken Unknown] pantoprazole 40 mg tablet,delayed release 40 mg PO BID 30 days #60 tabs 01/22/23 [Rx Last Taken Unknown] Allergy/AdvReac Type Severity Reaction Status Date / Time ciprofloxacin HCl Allergy Severe Nausea Verified 02/12/23 13:18 [From Cipro] Family History Father Hypertension Cancer lung Other Osteoporosis Surgical History Hx of colonoscopy Hx of left cataract extraction Hx of right cataract extraction Status post peripheral artery angioplasty Social History Smoking Status: Current every day smoker tobacco type: cigarettes ROS ROS ED Constitutional Constitutional ED: Denies chills or fever(s) Eyes Eyes: Denies change in vision or discharge from eye(s) ENT ENT ED: Denies discharge from eye(s), rhinorrhea or sore throat Cardiovascular Cardiovascular: Denies chest pain or palpitations Respiratory/Chest Respiratory/Chest: Reports cough and dyspnea Gastrointestinal Gastrointestinal: Reports abdominal pain; Denies diarrhea, nausea or vomiting Genitourinary Genitourinary ED: Denies dysuria Musculoskeletal Musculoskeletal: Denies back pain or extremity pain Integumentary Denies Abrasions or rash Neurologic Neurologic: Reports weakness; Denies headache(s) Psychiatric Psychiatric: Denies anxiety or depression Allergic/Immunologic Allergic/Immunologic ED: Denies lip swelling or urticaria EXAM Physical Exam Const Vital Signs: 02/12/23 13:13 02/12/23 13:19 02/12/23 14:11 Temperature 97.9 F Temperature Source Temporal Pulse Rate 87 92 Respiratory Rate 18 25 H Respiratory Effort Short of Breath Respiratory Depth Normal Respiratory Pattern Normal Blood Pressure 133/75 H Blood Pressure Mean 94 Pulse Ox 94 90 Oxygen Delivery Method Nasal Cannula Nasal Cannula Nasal Cannula Oxygen Flow Rate (L/min) 4 4 5 Fraction of Inspired Oxygen (FIO2) 02/12/23 14:11 02/12/23 14:11 Temperature Temperature Source Pulse Rate 90 Respiratory Rate 24 H Respiratory Effort Respiratory Depth Respiratory Pattern Blood Pressure Blood Pressure Mean Pulse Ox 93 Oxygen Delivery Method Nasal Cannula Oxygen Flow Rate (L/min) Fraction of Inspired Oxygen (FIO2) 5 Positive cachectic General Appearance ED: cachectic Nutritional Appearance: cachectic HEENT Reports dry mucous membranes Mouth ED: Yes dry mucous membranes Mouth: dry mucous membranes Eyes EOMs intact bilaterally Chest Wall inspection of chest normal and palpation of chest normal Resp normal respiratory effort and clear to auscultation bilaterally Cardio regular rate and regular rhythm GI GI Narrative: Abdomen soft with no focal tenderness. Extremity normal to inspection Psych mental status grossly normal Skin no rashes or lesions noted MDM MDM MDM Narrative Medical decision making narrative: Patient placed on clinical research monitor. EKG obtained to evaluate for cardiac arrhythmia/ischemia. Chest x-ray obtained to evaluate for acute lung pathology, cardiac size, or mediastinal abnormality. Labwork obtained to evaluate for leukocytosis, anemia, and electrolyte derangement. CT scan of the abdomen pelvis obtained given his pain. Lab Data Attestation: I reviewed the patient's lab results. Labs: Laboratory Results - last 24 hr 02/12/23 02/12/23 13:20 14:01 WBC 13.2 H RBC 4.99 Hgb 13.9 Hct 45.7 MCV 91.6 MCH 27.9 MCHC 30.4 L RDW Std Deviation 50.6 H RDW Coeff of Barbara 15.2 H Plt Count 190 MPV 11.0 Immature Gran % (Auto) 0.500 Neut % (Auto) 83.8 H Lymph % (Auto) 8.9 L [place] % (Auto) 6.6 Eos % (Auto) 0.0 Baso % (Auto) 0.2 Absolute Neuts (auto) 11.1 H Absolute Lymphs (auto) 1.18 Nucleated RBC % 0 Differential Comment SCANNED Sodium 129 L Potassium 3.6 Chloride 92 L Carbon Dioxide 31.0 Anion Gap 6 BUN 22 H Creatinine 1.02 Estim Creat Clear Calc 39.69 Est GFR (MDRD) Af Amer 92 Est GFR (MDRD) Non-Af 76 BUN/Creatinine Ratio 21.6 H Glucose 64 L Lactic Acid 1.4 Calcium 8.8 Total Bilirubin 0.80 Direct Bilirubin 0.42 H AST 32 ALT 20 Alkaline Phosphatase 78 Total Protein 6.7 Albumin 2.3 L Globulin 4.4 H Lipase 65 Radiography Diagnostic Testing: Clinical Impression(s) from Imaging Studies Chest X-Ray 02/12/23 14:15 IMPRESSION: Patchy right lower lobe infiltrate. Electronically Signed: Prasad Felton MD at 14:36 EDT , Abdomen/Pelvis CT 02/12/23 14:17 IMPRESSION: Right lower lobe infiltrate. Extensive atherosclerotic calcification of the abdominal aorta as well as the major visceral branches. Electronically Signed: Prasad Felton MD at 15:02 EDT , Chest CT 02/12/23 14:34 IMPRESSION: Right lower lobe infiltrate. Hyperinflation and emphysema. Electronically Signed: Prasad Felton MD at 15:05 EDT , EKG Initial EKG: Attestation: I personally reviewed and interpreted this EKG as follows: Interpretation: Sinus Rhythm (Sinus at 91 with PVCs. No acute ischemia) Treatment and Re-Evaluation :: CBC was a white count of 13.2 with 83% neutrophils. Sodium is low at 129. BUN is 22 and creatinine is 1.02. Lactic acid is normal at 1.4. Glucose is low at 64 and patient was given half amp of D50. LFTs and lipase are unremarkable. CT scan of the abdomen pelvis reveals atherosclerotic calcifications along with a right lower lobe infiltrate. I was called from CT with evidence of a right lower lobe infiltrate so CT scan of the chest was added at that time. Portable chest x-ray per my interpretation reveals chronic changes with scoliosis and right lower lobe infiltrate. Radiology interpretation is reviewed and agrees. EKG is sinus rhythm with PVCs. No evidence of ischemia. After being given a DuoNeb treatment patient does feel his breathing is slightly improved. He is currently satting 94% on 4 L. At baseline he is on 2 L nasal cannula. He will be given Rocephin and Zithromax. Although he did test positive for COVID, I would anticipate if this was a viral pneumonia he would not have an elevated white count. In light of this he will be covered with antibiotics for bacterial pneumonia. I will speak with hospitalist regarding admission. Discharge Plan Triage Chief Complaint: Abd Pain Other Complaint: Shortness of Breath ED Provider: Kimberly Cowart Dx/Rx/DC Orders Clinical Impression: Pneumonia, COPD exacerbation, Acute and chronic respiratory failure, Hyponatremia Prescriptions: No Action aspirin [Adult Low Dose Aspirin] 81 mg tablet,delayed release (DR/EC) 81 mg PO DAILY Hold Instructions: Order Changed albuterol sulfate 90 mcg/actuation HFA aerosol inhaler 1 inh inhalation Patient Comments: INHALE 2 PUFFS BY MOUTH EVERY 4 HOURS NEEDED rosuvastatin 20 mg tablet 20 mg PO DAILY Patient Comments: TAKE 1 TABLET BY MOUTH ONCE DAILY glucose 4 GM tablet,chewable 4 g PO DAILY cilostazol 50 mg tablet 50 mg PO DAILY guaifenesin [Mucus Relief ER] 600 mg Tablet Extended Release 12hr 600 mg PO BID 30 Days Qty: 60 0RF tamsulosin 0.4 mg Capsule 0.4 mg PO DAILY 30 Days Qty: 30 0RF Anoro Ellipta 62.5-25 mcg/actuation Blister With Device 1 inh inhalation DAILY Qty: 30 0RF pantoprazole 40 mg Tablet,Delayed Release (Dr/Ec) 40 mg PO BID 30 Days Qty: 60 0RF Xarelto 2.5 mg tablet 2.5 mg PO BID Qty: 60 5RF Hold Instructions: Resume on 01/29/23. Primary Care Provider: Dom Chaidez Referrals: Dom Chaidez MD [Primary Care Provider] - Disposition Disposition: Acute Care Hospital [facility]
[2023-02-12] MEDS: Ceftriaxone 1 GM/50 ML BAG IV (15:32)
--- NOTE | 2023-02-12 15:43 | PCM.HP.STD ---
HPI - General General Date of Admission: 02/12/23 Date of Service: 02/12/23 Chief Complaint: Shortness of breath HPI Narrative RYAN ESCOBAR, is a 72 M who recently had an extended stay here for a GI bleed from 01/18/2023 through 01/22/2023 and presented to the emergency department at [facility] on 02/12/2023 with worsening shortness of breath. It evidently been ongoing for about 5 days now. His breathing is gotten worse daily and they have had to go up on his oxygen at home. Typically he wears 2 L. He is also had decreased appetite which is a baseline issue for him but it has worsened as well as significant fatigue, malaise, and generalized weakness. He took a home COVID test yesterday and was found to be positive. He has not really had any food in the last 3 days due to decreased appetite and his oral intake is decreased as well. His daughter does not note any aspiration when he does eat. He was well for about 1 week after leaving the hospital. He has known COVID exposure at home. His oxygen saturations on presentation were found to be 88% on his baseline 2 L. Patient states he has not been taking his home medications for about the last 5 days as well. Vital signs on presentation showed temperature of 97.9, blood pressure 133/75, heart rate 87-104, respiratory rate has been anywhere from 18-25 and oxygen saturations were 88% on his baseline 2 L. His CBC demonstrates a leukocytosis with a left shift. His hemoglobin is up to 13.9. His chemistry panel shows mild hyponatremia with a sodium of 129 down from his baseline of 136-138. This is likely decreased solute intake. His BUN is slightly elevated at 22 but his serum creatinine is normal at 1.02 however I suspect his baseline is a bit lower given he has decreased body mass. His lactic acid was normal at 1.4, liver functions are normal. Lipase is 65. Chest x-ray shows a patchy right lower lobe infiltrate CT of the chest abdomen pelvis showed a right lower lobe infiltrate with extensive atherosclerotic calcification the abdominal aorta as well as the major both several branches as well as hyperinflation and emphysematous changes. [facility] Medical History Acute respiratory failure with hypoxemia Alcohol abuse Back pain Chronic bullous emphysema COPD (chronic obstructive pulmonary disease) COPD exacerbation Edema Hard of hearing Head injury Heartburn High cholesterol History of stress test HTN (hypertension) Hypoglycemia Incidental pulmonary nodule, less than or equal to 3mm Leg cramps Leg pain Neuropathy Osteoporosis PAOD (peripheral arterial occlusive disease) Passed out Peripheral arterial occlusive disease Shortness of breath Smoker Wears eyeglasses Home Medications glucose 4 gram chewable tablet 4 g PO DAILY PRN BLOOD SUGARS 01/18/20 [History Last Taken 01/18/20] rosuvastatin 20 mg tablet 20 mg PO DAILY CHOLESTEROL 08/20/22 [History Last Taken 02/07/23] pantoprazole 40 mg tablet,delayed release 40 mg PO BID ACID REFLUX 30 days #60 tabs 01/22/23 [Rx Last Taken 02/07/23] cholecalciferol (vitamin D3) 25 mcg (1,000 unit) capsule (Vitamin D3) 25 mcg PO DAILY SUPPLEMENT 02/12/23 [History Last Taken 02/07/23] valsartan 320 mg-hydrochlorothiazide 12.5 mg tablet 1 tab PO DAILY BLOOD PRESSURE 02/12/23 [History Last Taken 02/07/23] Allergy/AdvReac Type Severity Reaction Status Date / Time ciprofloxacin HCl Allergy Severe Nausea Verified 02/12/23 13:18 [From Cipro] Family History Father Hypertension Cancer lung Other Osteoporosis Surgical History (Updated 02/12/23 @ 16:[address] Temitope Son DO) H/O esophagogastroduodenoscopy Hx of colonoscopy Hx of left cataract extraction Hx of right cataract extraction Status post peripheral artery angioplasty Social History (Updated 02/12/23 @ 16:[address] Temitope Son DO) household members: family housing: house Smoking Status: Current every day smoker tobacco type: cigarettes alcohol intake: never substance use type: does not use ROS Constitutional Constitutional: Reports anorexia, chills, fatigue, malaise and weakness; Denies change in weight, fever(s), night sweats or other Eyes Eyes: Denies blurry vision, change in eye color, change in vision, discharge from eye(s), double vision, erythema, eye pain, loss of vision or other ENT HEENT: Reports abnormal hearing and hearing loss; Denies dysphagia, ear pain, epistaxis, headache(s), nasal congestion, nasal discharge, post nasal drip, sinus pressure, sore throat or other Cardiovascular Cardiovascular: Denies chest pain, claudication, dyspnea on exertion, edema, lightheadedness, orthopnea, palpitations, paroxysmal nocturnal dyspnea, rapid heart rate, syncope or other Respiratory/Chest Respiratory/Chest: Reports cough, dyspnea, excessive phlegm production, productive cough, shortness of breath at rest and shortness of breath with exertion; Denies hemoptysis or wheezing Gastrointestinal Gastrointestinal: Reports abdominal pain; Denies coffee ground emesis, constipation, diarrhea, dyspepsia, hematemesis, hematochezia, loose stools, melena, nausea or vomiting Genitourinary Genitourinary: Denies burning urination, difficulty urinating, dysuria, hematuria, nocturia, urinary frequency, urinary hesitancy, urinary incontinence, urinary urgency or other Musculoskeletal Musculoskeletal: Denies arthralgias, back pain, joint pain, joint stiffness, joint swelling, myalgias, neck pain or other Neurologic Neurologic: Denies abnormal gait, abnormal speech, confusion, disequilibrium, dizziness, focal weakness, headache(s), numbness, paresthesias, seizure-like activity, seizures, syncope, tingling, tremor(s) or other Psychiatric Psychiatric: Denies anxiety, depression, homicidal ideation, suicidal ideation or other Endocrine Endocrinology: Denies change in body appearance, cold intolerance, excessive sweating, heat intolerance, polydipsia, polyuria or other Hematologic/Lymphatic Hematologic/Lymphatic: Denies anemia, easy bleeding, easy bruising, lymphadenopathy or other Allergic/Immunologic Allergic/Immunologic: Denies rhinitis, hives, eczemia, asthma or other Vital Signs Vital Signs Vital Signs: 02/12/23 13:13 02/12/23 13:19 02/12/23 14:11 Temperature 97.9 F Temperature Source Temporal Pulse Rate 87 92 Respiratory Rate 18 25 H Respiratory Effort Short of Breath Respiratory Depth Normal Respiratory Pattern Normal Blood Pressure 133/75 H Blood Pressure Mean 94 Pulse Ox 94 90 Oxygen Delivery Method Nasal Cannula Nasal Cannula Nasal Cannula Oxygen Flow Rate (L/min) 4 4 5 Fraction of Inspired Oxygen (FIO2) 02/12/23 14:11 02/12/23 14:11 02/12/23 15:40 Temperature 98.2 F Temperature Source Temporal Pulse Rate 90 104 H Respiratory Rate 24 H 24 H Respiratory Effort Respiratory Depth Respiratory Pattern Blood Pressure 115/67 Blood Pressure Mean 83 Pulse Ox 93 90 Oxygen Delivery Method Nasal Cannula Nasal Cannula Oxygen Flow Rate (L/min) 4 Fraction of Inspired Oxygen (FIO2) 5 Weight Weight: 43.5 kg Body Mass Index (BMI) 16.9 Physical Exam Const alert, oriented x3 and no apparent distress; Negative for average body habitus, healthy appearing or well nourished Constitutional Narrative: Frail, cachectic, older, white male, sitting up in bed on nasal cannula, daughter at bedside, patient appears ill but nontoxic General Appearance: cooperative HEENT normocephalic and head/scalp atraumatic; Negative for hearing grossly normal bilaterally or moist oral mucous membranes HEENT Narrative: Mallampati is 1, no thrush, mild hearing loss, mucous membranes are dry, temporal wasting Eyes PERRL, EOMs intact bilaterally and conjunctivae normal Neck no lymphadenopathy and supple Neck Narrative: Trachea, no trachea enlargement Resp No normal respiratory effort, no retractions, no use of accessory muscles and No clear to auscultation bilaterally Resp Narrative: severely diminished diffusely with crackles in the right base posteriorly Auscultation: crackles; Negative for rhonchi or wheezes Cardio regular rhythm, S1 normal heart sound, S2 normal heart sound, no murmurs, no rub, no gallops and no clicks Cardio Narrative: Very mild tachycardia GI normal to inspection, nondistended, normoactive bowel sounds, soft to palpation and non-tender GI Narrative: Scaphoid abdomen Extremity Extremity Narrative: Decreased lean muscle mass, clubbing, no cyanosis or edema Neuro oriented x3, CN's II-XII intact bilaterally, moves all extremities and no focal motor deficits Neuro Narrative: Severe generalized weakness noted with proximal musculature being weaker than distal musculature Speech: speech normal Psych Psych Narrative: Affect is mild flat but eye contact is good and patient interacts normally Results Lab / Micro Data 02/12/23 13:20 02/12/23 13:20 Labs: Laboratory Results - last 24 hr 02/12/23 13:20: WBC 13.2 H, RBC 4.99, Hgb 13.9, Hct 45.7, MCV 91.6, MCH 27.9, MCHC 30.4 L, RDW Std Deviation 50.6 H, RDW Coeff of Barbara 15.2 H, Plt Count 190, MPV 11.0, Immature Gran % (Auto) 0.500, Neut % (Auto) 83.8 H, Lymph % (Auto) 8.9 L, [place] % (Auto) 6.6, Eos % (Auto) 0.0, Baso % (Auto) 0.2, Absolute Neuts (auto) 11.1 H, Absolute Lymphs (auto) 1.18, Nucleated RBC % 0, Differential Comment SCANNED, Sodium 129 L, Potassium 3.6, Chloride 92 L, Carbon Dioxide 31.0, Anion Gap 6, BUN 22 H, Creatinine 1.02, Estim Creat Clear Calc 39.69, Est GFR (MDRD) Af Amer 92, Est GFR (MDRD) Non-Af 76, BUN/Creatinine Ratio 21.6 H, Glucose 64 L, Calcium 8.8, Total Bilirubin 0.80, Direct Bilirubin 0.42 H, AST 32, ALT 20, Alkaline Phosphatase 78, Total Protein 6.7, Albumin 2.3 L, Globulin 4.4 H, Lipase 65 02/12/23 14:01: Lactic Acid 1.4 Radiology Impression Chest X-Ray 02/12/23 14:15 IMPRESSION: Patchy right lower lobe infiltrate. Electronically Signed: Prasad Felton MD at 14:36 EDT , Abdomen/Pelvis CT 02/12/23 14:17 IMPRESSION: Right lower lobe infiltrate. Extensive atherosclerotic calcification of the abdominal aorta as well as the major visceral branches. Electronically Signed: Prasad Felton MD at 15:02 EDT , Chest CT 02/12/23 14:34 IMPRESSION: Right lower lobe infiltrate. Hyperinflation and emphysema. Electronically Signed: Prasad Felton MD at 15:05 EDT Reading Location ID and State: [id number] / [place] , Service support , Assessment & Plan Assessment/Plan (1) Acute on chronic respiratory failure with hypoxia: (2) Leukocytosis: (3) Hyponatremia: (4) COPD exacerbation: (5) Pneumonia: (6) COVID-19 virus infection: (7) Severe malnutrition: PLAN: Plan Acute on chronic hypoxic respiratory failure secondary to COVID-19/suspected bacterial pneumonia -Patient with up titration of oxygen requirement from baseline of 2 L, tachypnea, tachycardia -Start Decadron 6 mg daily x10 days--> day 1 of 10 -Chest x-ray and CT both show a significant right lower lobe infiltrate -Recent hospitalization we will cover Pseudomonas and check MRSA PCR -Levaquin 750 daily and will add vancomycin if MRSA PCR is positive -Aggressive pulmonary toilet -I-S and Acapella -Currently requiring 4 to 5 L nasal cannula maintain sats greater than 88% -Wean as able -Scheduled Mucinex -Check strep pneumo and Legionella antigens -Check sputum culture if patient is able to produce COVID-19 infection -Decadron -We will hold on remdesivir as it has not been shown to be effective on the variants Leukocytosis -Suspect related to the above -We will continue to monitor -Repeat CBC in a.m. Hyponatremia -Suspect related to pulmonary infection as well as decreased solute intake -We will gently hydrate -Repeat BMP in a.m. Severe malnutrition -Patient with acute on chronic severe malnutrition -p.o. intake has been extremely poor acute and chronically -Supplements added -Dietitian consultation Severe debility -PT/OT consultation Recent GI bleed secondary to angiodysplastic lesions -Continue Protonix 40 mg p.o. twice daily Severe peripheral vascular disease/HTN/HPL -Per discharge instructions after last hospitalization he had been on Eliquis 2.5 mg daily at home which was to be restarted on 913 -It does not appear that his medication was restarted -We will restart on admission and monitor hemoglobin -Restart 81 mg aspirin as well -Continue home statin -Continue home antihypertensive COPD -See above -Recommend outpatient follow-up with pulmonary medicine DVT prophylaxis -Will restart Eliquis 2.5 mg p.o. twice daily as this was to be reinitiated on 913 and does not appear that it has been as of yet CODE STATUS -DNR CCA with no intubation as per discussion on admission Charges/Coding Visit Charges Inpatient E&M: 07834 Init Hosp L3
[2023-02-12] MEDS: Azithromycin 500 MG in Dextrose 5%-Water (250mL Bag) 250 ML 250 MG IV (16:11)
[2023-02-12] MEDS: Lactated Ringers 1,000 ML 75 ML IV (18:15)
[2023-02-12] MEDS: Ensure Plus High Protein 120 ML LIQUID PO (18:16)
[2023-02-12] MEDS: dexAMETHasone 4 MG Tablet 6 MG PO (20:08)
[2023-02-12] MEDS: Atorvastatin Calcium 40 MG Tablet PO (20:11)
[2023-02-12] MEDS: Pantoprazole Sodium 40 MG Tablet PO (20:12)
[2023-02-12 20:16] LABS: M R Staph aureus DNA By PCR Negative (Negative); Probe Check PASS; Specimen Processing Control PASS
[2023-02-12] MEDS: APIXABAN 2.5 MG TABLET (WCH) PO (20:18)
[2023-02-12] MEDS: guaiFENesin 1,200 MG Tablet 1200 MG PO (20:42)
[2023-02-13] VITALS (11 sets, daily range): BP systolic 102–136; BP diastolic 55–73; PULSE 81–90; RESP 18–24; TEMP 36.2–36.6; O2SAT 90–94
[2023-02-13 07:30] LABS: Absolute Lymphocyte Count 0.54 X10^3/uL (0.83-4.51); Absolute Neutrophil Count 6.9 X10^3/uL (2.0-7.7); Basophil# 0.01 X10^3/uL; Basophil% 0.1 % (0-1); Hematocrit 37.7 % (40-54); Hemoglobin 11.9 g/dL (13.0-16.5); Lymphocyte # 0.54 X10^3/ul (0.83-4.51); Lymphocyte % 7.1 % (19-41); Mean Corp Hgb Conc 31.6 g/dL (32-36); Mean Corpuscular Hgb 28.3 pg (27.0-32.0); Mean Corpuscular Volume 89.8 fL (80-94); Mean Platelet Vol. 10.9 fl (6.2-12.0); Monocyte# 0.17 X10^3/uL; Monocyte% 2.2 % (0-10); NRBC Flagged by Analyzer 0 % (0-5); Neutrophil % 90.3 % (47-70); POSITIVE DIFFERENTIAL YES; Platelet Count 148 K/mm3 (150-450); RBC Distribution Width CV 14.8 % (11.6-14.6); RBC Distribution Width SD 49.1 fl (35.1-43.9); White Blood Count 7.6 K/mm3 (4.4-11.0)
[2023-02-13] MEDS: Ipratropium/Albuterol Sulfate 3 ML AMPUL.NEB INHALATION ×4 (07:30→20:05)
[2023-02-13 07:34] LABS: Differential Indicated SCAN CRITERIA MET
[2023-02-13 07:56] LABS: ALB/GLOB Ratio 0.5 RATIO (0.9-2.4); AST(SGOT) 24 U/L (15-37); Alanine Aminotransfer ALT/SGPT 17 U/L (16-61); Albumin, Serum 1.9 g/dL (3.2-5.0); Alkaline Phosphatase 67 U/L (45-117); Anion Gap 7 (5-15); BUN 23 mg/dL (7-18); BUN/Creat Ratio 27.9 RATIO (10-20); Calcium,Total 8.2 mg/dL (8.5-10.1); Chloride 96 mmol/L (98-107); Creatinine, Serum 0.82 mg/dL (0.70-1.30); EST Glomerular Filtration Rate 97 mL/min (>60); Est Glom Filt Rate - Afr Amer 118 mL/min (>60); Estimated Creatinine Clearance 48.91 ml/min; Glucose 138 mg/dL (74-106); Potassium 3.6 mmol/L (3.5-5.1); Protein, Total 5.9 g/dL (6.4-8.2); Sodium Level 132 mmol/L (136-145)
[2023-02-13 08:10] LABS: Differential Comment SCANNED
[2023-02-13] MEDS: Ensure Plus High Protein 120 ML LIQUID PO ×3 (09:09→18:52)
[2023-02-13] MEDS: Aspirin 81 MG TAB.CHEW PO (09:09)
[2023-02-13] MEDS: Losartan Potassium 100 MG Tablet PO (09:10)
[2023-02-13] MEDS: dexAMETHasone 4 MG Tablet 6 MG PO (09:10)
[2023-02-13] MEDS: APIXABAN 2.5 MG TABLET (WCH) PO ×2 (09:11→21:19)
[2023-02-13] MEDS: Pantoprazole Sodium 40 MG Tablet PO ×2 (09:11→21:18)
[2023-02-13] MEDS: hydroCHLOROthiazide 12.5mg 12.5 MG PO (09:11)
[2023-02-13] MEDS: Cholecalciferol (VIT D3) 25 MCG TABLET (1,000 UNITS) PO (09:12)
[2023-02-13] MEDS: Furosemide 40 MG/4 ML Vial IV (10:36)
[2023-02-13] MEDS: 0.9% Saline Lock 10 ML Syringe IV (10:36)
[2023-02-13] MEDS: levoFLOXacin IV 750 MG/150 ML BAG 100 MG IV (10:36)
[2023-02-13] MEDS: Flu Vacc QS2023-24(65YR UP)/PF 240 MCG/0.7 ML Syringe IM (11:42)
--- NOTE | 2023-02-13 12:40 | CASEMGMT ---
KIKO POTTER readmission note: Index admission: Pt admitted 01/18/23 w/anemia, hypotension. and lactic acidemia. Pt discharged home 01/22/23 w/[facility] HHC acceptance pending appt w/Dr Chaidez, as he requires office visit before following for HHC orders. See KIKO Green CM, admission note 01/21. Per Dr Son H/P pt recently had an extended stay here for a GI bleed from 01/18/2023 through 01/22/2023 and presented to the emergency department at [facility] on 02/12/2023 with worsening shortness of breath. It evidently been ongoing for about 5 days now. His breathing is gotten worse daily and they have had to go up on his oxygen at home. Typically he wears 2 L. He is also had decreased appetite which is a baseline issue for him but it has worsened as well as significant fatigue, malaise, and generalized weakness. He took a home COVID test yesterday and was found to be positive. He has not really had any food in the last 3 days due to decreased appetite and his oral intake is decreased as well. Current admission: Admitted 02/12/23 w/PNA and COVID 19. KIKO POTTER met w/pt's daughter, Kimberly. Per Kimberly, pt had been doing well after last discharge for awhile. She reports he was taking his medications as prescribed up until about 5 days ago when they noticed his meds were still in his daily pill containers for the past 5 days. She states she and her sister, Patricia, were going to pt's home a couple times a week to check on patient, but plan to start going more frequently once he returns home. She reports pt did go to appt w/Dr Chaidez after he was discharged, but did not end up having HHC d/t he was planning on going on vacation and was not homebound. She reports he did not end up going on vacation d/t not feeling well. They would like referral to [facility] again and decline wanting list of other HHC options. She was made aware referral can be made and if they are unable to accept him a list can be provided at that time to review. She voices understanding. Order placed for HHC: SN and PT/OT and referral made w/Tracy @ [facility]. Palliative: Per Sobeida @ [facility] palliative, pt had signed on w/palliative 02/06 and they were planning on scheduling appt with pt for SOC. She was made aware pt has been admitted to [facility]. O2: Pt has O2 through [employer] @ 2 l/m continuously and this was verified w/[employer]. Pt has O2 concentrator @ home and portable O2 tanks. Kimberly states they can bring in a portable O2 tank in for pt to go home @ discharge. Kimberly states SW was unable to meet w/pt last admission to complete AD and he would still like to complete these. RIZWANA, Misty, made aware. Kimberly was made aware to f/u with SW as an OP if SW unable to meet w/pt while in the hospital. She voices understanding. Kimberly states they want to take pt home and decline SNF. She states b/w her and her sister, Patricia, they plan on stopping at pt's home daily to check on him, ensure he is taking his medications as prescribed, and assist as needed. She denies having other discharge planning needs or concerns at this time. Plan: Home w/HHC, palliative care, family support, and discharge plans in place. Follow for any increase in home oxygen needs. Juan Daniel ENNIS RN CM
--- NOTE | 2023-02-13 14:23 | SP.MBSS_ITS ---
Modified Barium Swallow Patient Information Study Date: 02/13/23 Study Time: 13:00 Direct Billable Minutes: 70 Total Minutes procedure & reportin Diagnosis: Pneumonia (J18.9) Referring Physician: Sukhi Alfredo Reason for Referral: Objectively assess swallow function, assess risk for aspiration, and determine recommendations for least restrictive diet textures and compensatory strategies to improve safety of swallow. Medical History: Gordon Vaz is a 72-year-old male with PMH including Acute respiratory failure with hypoxemia, Alcohol abuse, Chronic bullous emphysema, COPD exacerbation, Hard of hearing, Head injury, HTN, High cholesterol, Incidental pulmonary nodule, and smoker (SEE EMR for full PMH). He was recently admitted here for a GI bleed from 01/18/2023 through 2022. He presented to [facility] ED 02/12/2023 with worsening shortness of breath ongoing for 5 days. Baseline O2 use is 2L at home. Associated symptoms included decreased appetite, fatigue, malaise, and generalized weakness. He took a home COVID test day before admission and was found to be positive. He has known COVID exposure at home. His oxygen saturations in ED were 88% on 2L. Chest x-ray shows a patchy right lower lobe infiltrate. Patient was referred for speech therapy consult to assess swallow function and aspiration risk. Current Diet Ordered: Regular textures / Thin liquids Dentition: Natural Teeth Respiratory Status: Oxygenating on 4L/M nasal cannula (5L O2 via nasal cannula) Penetration-Aspiration Scale Penetration-Aspiration Scale: OBJECTIVE ASSESSMENT OF SWALLOW FUNCTION (QUANTITATIVE ? PER TRIAL): PENETRATION / ASPIRATION SCALE (BURNETT): 1 = does not enter airway 2 = enters airway/above vocal folds/ejected 3 = enters airway/above vocal folds/not ejected 4 = enters airway/contacts vocal folds/ejected 5 = enters airway/contacts vocal folds/not ejected 6 = enters airway/below vocal folds/ejected 7 = enters airway/below vocal folds/not ejected despite effort 8 = enters airway/below vocal folds/no effort VIDEOFLOROSCOPIC SCALE SCORE (BURNETT): Grade I = aspiration of material that has penetrated into the laryngeal vestibule, intact cough reflex Grade II = aspiration < 10 % of the bolus, intact cough reflex Grade III = aspiration of < 10 % of the bolus, reduced cough reflex or aspiration of > 10 % of the bolus, intact cough reflex Grade IV = aspiration of > 10 % of the bolus, reduced cough reflex Penetration-Aspiration Scale Score Thin Liquid via teaspoon: Result: 1= does not enter airway Thin Liquid via teaspoon Trial 2: Result: 1= does not enter airway Thin liquid via large single sip from cup: Result: 1= does not enter airway Thin liquids via sequential sips from cup: Result: 1= does not enter airway Zeigler/mildly thick liquid via small single sip from cup: Result: 1= does not enter airway Pudding via teaspoon with esophageal screen: Result: 1= does not enter airway Thin liquid via single sip from straw with esophageal screen: Result: 1= does not enter airway 1/2 Cookie: Result: 1= does not enter airway Oral Phase Labial Seal: No Labial Escape Tongue Control During Bolus Hold: Cohesive bolus between tongue to palatal seal Bolus Preparation/Mastication: Slow prolonged chewing/mashing with complete recollection Bolus Transport/Lingual Motion: Brisk tongue motion Oral Residue: Trace residue lining oral structures Pharyngeal Phase Initiation of Pharyngeal Swallow: Bolus head in valleculae Soft Palate Elevation: No bolus between soft palate and pharyngeal wall Laryngeal Elevation: Comp. Superior move thyroid cart w/comp. apprx arytenoid cart-epig pet Anterior Hyoid Excursion: Partial anterior movement Epiglottic Movement: Complete inversion Laryngeal Vestibule Closure at Height of Swallow: Complete; no air/contrast in laryngeal vestibule Pharyngeal Stripping Wave: Present - complete Pharyngoesophageal Segment Opening: Complete distension and complete duration; no obstruction of flow Tongue Base Retraction: No contrast between tongue base and posterior pharyngeal wall Pharyngeal Residue: Trace residue within or on pharyngeal structures Esophageal Phase Esophageal Clearance: Esophageal retention Diagnosis/Impression Diagnosis: Oropharyngeal swallow function grossly WNL Impression: Overall swallow function appeared WNL. Mildly prolonged mastication, but cookie was fully chewed. Mildly decreased anterior hyoid excursion; however, the patient demonstrated good laryngeal elevation and airway closure throughout the study. Timely swallow onset. RACING DRIVER reviewed images with radiologist, Dr. Felton, who identified cervical osteophytes at the level of C4-C5. Osteophytes did not impact pharyngeal clearance of boluses throughout the evaluation. Small CP bar at the level of C- 6, which also did not impact bolus clearance through the upper esophageal sph incter. Recommendations Diet: Regular Textures and Thin Liquids Compensatory Strategies: Small Bites, Small Sips, Slow Rate, Alternate bites/solids and sips/liquids and Sitting upright Recommend Repeat Modified Barium Swallow: No Need for Skilled Speech Therapy Services: No Education Completed: 1. Described result of evaluation. Status Active ST Patient: Active Contact Information [facility] Speech Therapy:: Imelda Rubi M.A. [facility] Speech-Language Pathologist [facility] [address] [place] [address] [email or web address] [phone]
[2023-02-13] MEDS: guaiFENesin 1,200 MG Tablet 1200 MG PO ×2 (15:39→21:18)
--- NOTE | 2023-02-13 15:47 | PCM.PN.HOSP ---
Subjective Subjective Breathing little bit better after he got Lasix this morning, no issues overnight Objective Data Objective Data Vital Signs: Vital Signs Temp Pulse Resp BP Pulse Ox O2 Del Method O2 Flow Rate 97.2 F L 84 24 H 102/57 L 93 Nasal Cannula 4 02/13/23 14:00 02/13/23 14:54 02/13/23 14:54 02/13/23 14:00 02/13/23 14:54 02/13/23 14:54 02/13/23 14:54 FiO2 5 02/12/23 14:11 Oxygen Flow Rate (L/min) 4 Oxygen Delivery Method Nasal Cannula Weight: 95 lb 0.308 oz Body Mass Index (BMI) 16.8 Intake & Output: Intake and Output for Last 24 Hours 02/12/23 02/13/23 02/14/23 03:59 03:59 03:59 Intake Total 1127.5 / 1127.5 1081.25 / 1081.25 Output Total 180 / 180 225 / 225 Balance 947.5 / 947.5 856.25 / 856.25 Lab / Micro Data 02/13/23 06:33 02/13/23 06:33 Labs: Laboratory Results - last 24 hr 02/12/23 18:10: MRSA (PCR) Negative 02/13/23 06:33: WBC 7.6, RBC 4.20 L, Hgb 11.9 L, Hct 37.7 L, MCV 89.8, MCH 28.3, MCHC 31.6 L, RDW Std Deviation 49.1 H, RDW Coeff of Barbara 14.8 H, Plt Count 148 L, MPV 10.9, Immature Gran % (Auto) 0.300, Neut % (Auto) 90.3 H, Lymph % (Auto) 7.1 L, [place] % (Auto) 2.2, Eos % (Auto) 0.0, Baso % (Auto) 0.1, Absolute Neuts (auto) 6.9, Absolute Lymphs (auto) 0.54 L, Nucleated RBC % 0, Differential Comment SCANNED, Sodium 132 L, Potassium 3.6, Chloride 96 L, Carbon Dioxide 29.0, Anion Gap 7, BUN 23 H, Creatinine 0.82, Estim Creat Clear Calc 48.91, Est GFR (MDRD) Af Amer 118, Est GFR (MDRD) Non-Af 97, BUN/Creatinine Ratio 27.9 H, Glucose 138 H, Calcium 8.2 L, Phosphorus 3.0, Magnesium 2.0, Total Bilirubin 0.30, AST 24, ALT 17, Alkaline Phosphatase 67, Total Protein 5.9 L, Albumin 1.9 L, Globulin 4.0, Albumin/Globulin Ratio 0.5 L Micro: Microbiology 02/12/23 18:10 Urine, Clean Catch Legionella Antigen - Final 02/12/23 18:10 Urine, Clean Catch Streptococcus pneumoniae Antigen (M - Final 02/12/23 15:35 Nasal Secretion SARS-CoV-2 Antigen (Rapid) - Final SARS-CoV-2 (COVID 19) Physical Exam Narrative General: Alert, Oriented x3, Cooperative, mild respiratory distress HEENT: Atraumatic, PERRLA, EOMI, Normocephalic Oral: Moist Mucosa Neck: Supple, No JVD Lungs: Diminished, Normal air movement, No rhonchi, No wheeze, No rales, tachypneic Cardiovascular: Regular rate, Regular Rhythm, Normal S1, Normal S2, No murmurs Abdomen: Soft, Non Tender, Non-Distended, No Hepato-splenomegaly Extremities: No edema, Capillary Refill Less than 3 Seconds Skin: No rashes, No breakdown Musculoskeletal: No Tenderness to Palpation of Joints or Extremities Neurological: Cranial nerves II-XII grossly intact, Motor Exam 5/5 strength throughout, Sensory exam intact to light touch and pain Psych/Mental Status: Normal Affect, Appropriate Const alert, oriented x3 and no apparent distress; Negative for average body habitus, healthy appearing or well nourished Constitutional Narrative: Frail, cachectic, older, white male, sitting up in bed on nasal cannula, daughter at bedside, patient appears ill but nontoxic General Appearance: cooperative HEENT normocephalic and head/scalp atraumatic; Negative for hearing grossly normal bilaterally or moist oral mucous membranes Eyes PERRL, EOMs intact bilaterally and conjunctivae normal Neck no lymphadenopathy and supple Neck Narrative: Trachea, no trachea enlargement Resp No normal respiratory effort, no retractions, no use of accessory muscles and No clear to auscultation bilaterally Resp Narrative: severely diminished diffusely with crackles in the right base posteriorly Auscultation: crackles; Negative for rhonchi or wheezes Cardio regular rhythm, S1 normal heart sound, S2 normal heart sound, no murmurs, no rub, no gallops and no clicks Cardio Narrative: Very mild tachycardia GI normal to inspection, nondistended, normoactive bowel sounds, soft to palpation and non-tender GI Narrative: Scaphoid abdomen Extremity Extremity Narrative: Decreased lean muscle mass, clubbing, no cyanosis or edema Neuro oriented x3, CN's II-XII intact bilaterally, moves all extremities and no focal motor deficits Neuro Narrative: Severe generalized weakness noted with proximal musculature being weaker than distal musculature Speech: speech normal Psych Psych Narrative: Affect is mild flat but eye contact is good and patient interacts normally Assessment & Plan Assessment/Plan (1) Acute on chronic respiratory failure with hypoxia: (2) COPD exacerbation: (3) Pneumonia: (4) COVID-19 virus infection: PLAN: Plan 1. Acute on chronic hypoxic respiratory failure secondary to COVID-19 with possible superimposed bacterial pneumonia complicated by COPD/debility ? Continue with Decadron ? Symptoms started about 7 to 10 days ago with coughing ? We will hold off on remdesivir given how long has had symptoms ? We will trial him on as needed Lasix to get him back down to his 2 L nasal cannula at home. ? MRSA PCR is negative will not add vein continue with Levaquin ? PT/OT for evaluation 2. HTN/HLD/severe peripheral vascular disease ? Blood pressures are stable, can resume his home blood pressure medications ? Can resume his lipid medication ? Continue with Eliquis at 2.5 mg p.o. twice daily 3. Recent GI bleed due to AVM ? Continue with Protonix ? Stable 4. Severe malnutrition ? Consult nutrition DVT: Eliquis Charges/Coding Visit Charges Inpatient E&M: 84409 Subs Hosp L2
[2023-02-13] MEDS: Atorvastatin Calcium 40 MG Tablet PO (21:19)
[2023-02-13 21:45] LABS: Bedside Glucose 166 mg/dL (74-106)
[2023-02-14] VITALS (13 sets, daily range): BP systolic 106–117; BP diastolic 51–66; PULSE 78–93; RESP 16–21; TEMP 36.3–36.9; O2SAT 87–95
[2023-02-14] MEDS: Ipratropium/Albuterol Sulfate 3 ML AMPUL.NEB INHALATION ×2 (00:09→07:42)
[2023-02-14 06:25] LABS: Absolute Lymphocyte Count 0.69 X10^3/uL (0.83-4.51); Absolute Neutrophil Count 11.3 X10^3/uL (2.0-7.7); Basophil# 0.01 X10^3/uL; Basophil% 0.1 % (0-1); Hematocrit 36.4 % (40-54); Hemoglobin 12.1 g/dL (13.0-16.5); Lymphocyte # 0.69 X10^3/ul (0.83-4.51); Lymphocyte % 5.5 % (19-41); Mean Corp Hgb Conc 33.2 g/dL (32-36); Mean Corpuscular Hgb 29.3 pg (27.0-32.0); Mean Corpuscular Volume 88.1 fL (80-94); Mean Platelet Vol. 11.3 fl (6.2-12.0); Monocyte# 0.42 X10^3/uL; Monocyte% 3.4 % (0-10); NRBC Flagged by Analyzer 0 % (0-5); Neutrophil # 11.32 X10^3/uL (2.7-7.7); Neutrophil % 90.4 % (47-70); Platelet Count 173 K/mm3 (150-450); RBC Distribution Width CV 14.5 % (11.6-14.6); RBC Distribution Width SD 47.1 fl (35.1-43.9); Red Blood Count 4.13 M/mm3 (4.6-6.2); White Blood Count 12.5 K/mm3 (4.4-11.0)
[2023-02-14 06:50] LABS: Anion Gap 6 (5-15); BUN 30 mg/dL (7-18); BUN/Creat Ratio 28.6 RATIO (10-20); Calcium,Total 8.5 mg/dL (8.5-10.1); Chloride 94 mmol/L (98-107); Creatinine, Serum 1.05 mg/dL (0.70-1.30); EST Glomerular Filtration Rate 74 mL/min (>60); Est Glom Filt Rate - Afr Amer 89 mL/min (>60); Glucose 164 mg/dL (74-106); Potassium 2.8 mmol/L (3.5-5.1); Sodium Level 132 mmol/L (136-145)
[2023-02-14] MEDS: Aspirin 81 MG TAB.CHEW PO (07:35)
[2023-02-14] MEDS: Ensure Plus High Protein 120 ML LIQUID PO ×3 (07:40→17:56)
[2023-02-14] MEDS: hydroCHLOROthiazide 12.5mg 12.5 MG PO (09:51)
[2023-02-14] MEDS: APIXABAN 2.5 MG TABLET (WCH) PO ×2 (09:51→20:25)
[2023-02-14] MEDS: Pantoprazole Sodium 40 MG Tablet PO ×2 (09:51→20:25)
[2023-02-14] MEDS: Losartan Potassium 100 MG Tablet PO (09:51)
[2023-02-14] MEDS: Cholecalciferol (VIT D3) 25 MCG TABLET (1,000 UNITS) PO (09:52)
[2023-02-14] MEDS: 0.9% Saline Lock 10 ML Syringe IV ×2 (09:52→17:56)
[2023-02-14] MEDS: Furosemide 40 MG/4 ML Vial IV ×2 (09:52→17:56)
[2023-02-14] MEDS: dexAMETHasone 4 MG Tablet 6 MG PO (09:52)
[2023-02-14] MEDS: Potassium Chloride Oral Tablet 20 MEQ 60 MEQ PO (09:53)
[2023-02-14] MEDS: guaiFENesin 1,200 MG Tablet 1200 MG PO ×2 (09:53→20:25)
--- NOTE | 2023-02-14 18:01 | PN.HOSP_ITS ---
Subjective Subjective Doing well, says that he is breathing little bit easier. Last night he had to go up on his oxygen a little bit Objective Data Objective Data Vital Signs: Vital Signs Temp Pulse Resp BP Pulse Ox O2 Del Method O2 Flow Rate 97.8 F 85 17 106/53 L 95 Nasal Cannula 5 02/14/23 14:07 02/14/23 14:07 02/14/23 14:07 02/14/23 14:07 02/14/23 14:10 02/14/23 14:10 02/14/23 14:10 FiO2 5 02/12/23 14:11 Oxygen Flow Rate (L/min) 5 Oxygen Delivery Method Nasal Cannula Weight: 95 lb 0.308 oz Body Mass Index (BMI) 16.8 Intake & Output: Intake and Output for Last 24 Hours 02/13/23 02/14/23 02/15/23 03:59 03:59 03:59 Intake Total 1127.5 / 1127.5 1796.25 / 1796.25 1130 / 1130 Output Total 180 / 180 875 / 875 400 / 400 Balance 947.5 / 947.5 921.25 / 921.25 730 / 730 Lab / Micro Data 02/14/23 06:00 02/14/23 06:00 Labs: Laboratory Results - last 24 hr 02/13/23 21:12: POC Glucose 166 H 02/14/23 06:00: WBC 12.5 H, RBC 4.13 L, Hgb 12.1 L, Hct 36.4 L, MCV 88.1, MCH 29.3, MCHC 33.2 D, RDW Std Deviation 47.1 H, RDW Coeff of Barbara 14.5, Plt Count 173, MPV 11.3, Immature Gran % (Auto) 0.600, Neut % (Auto) 90.4 H, Lymph % (Auto) 5.5 L, [place] % (Auto) 3.4, Eos % (Auto) 0.0, Baso % (Auto) 0.1, Absolute Neuts (auto) 11.3 H, Absolute Lymphs (auto) 0.69 L, Nucleated RBC % 0, Sodium 132 L, Potassium 2.8 L, Chloride 94 L, Carbon Dioxide 32.0, Anion Gap 6, BUN 30 H, Creatinine 1.05, Estim Creat Clear Calc 38.20, Est GFR (MDRD) Af Amer 89, Est GFR (MDRD) Non-Af 74, BUN/Creatinine Ratio 28.6 H, Glucose 164 H, Calcium 8.5 Micro: Microbiology 02/12/23 18:10 Urine, Clean Catch Legionella Antigen - Final 02/12/23 18:10 Urine, Clean Catch Streptococcus pneumoniae Antigen (M - Final 02/12/23 15:35 Nasal Secretion SARS-CoV-2 Antigen (Rapid) - Final SARS-CoV-2 (COVID 19) Physical Exam Narrative General: Alert, Oriented x3, Cooperative, mild respiratory distress HEENT: Atraumatic, PERRLA, EOMI, Normocephalic Oral: Moist Mucosa Neck: Supple, No JVD Lungs: Diminished, Normal air movement, No rhonchi, No wheeze, No rales Cardiovascular: Regular rate, Regular Rhythm, Normal S1, Normal S2, No murmurs Abdomen: Soft, Non Tender, Non-Distended, No Hepato-splenomegaly Extremities: No edema, Capillary Refill Less than 3 Seconds Skin: No rashes, No breakdown Musculoskeletal: No Tenderness to Palpation of Joints or Extremities Neurological: Cranial nerves II-XII grossly intact, Motor Exam 5/5 strength throughout, Sensory exam intact to light touch and pain Psych/Mental Status: Normal Affect, Appropriate Assessment & Plan Assessment/Plan (1) Acute on chronic respiratory failure with hypoxia: (2) COPD exacerbation: (3) Pneumonia: (4) COVID-19 virus infection: PLAN: Plan 1. Acute on chronic hypoxic respiratory failure secondary to COVID-19 with possible superimposed bacterial pneumonia complicated by COPD/debility ? Continue with Decadron ? Symptoms started about 7 to 10 days ago with coughing ? We will hold off on remdesivir given how long has had symptoms ? We will trial him on as needed Lasix to get him back down to his 2 L nasal cannula at home. ? MRSA PCR is negative, continue with Levaquin ? PT/OT for evaluation 2. HTN/HLD/severe peripheral vascular disease ? Blood pressures are stable, can resume his home blood pressure medications ? Can resume his lipid medication ? Continue with Eliquis at 2.5 mg p.o. twice daily 3. Recent GI bleed due to AVM ? Continue with Protonix ? Stable 4. Severe malnutrition ? Consult nutrition DVT: Eliquis Charges/Coding Visit Charges Inpatient E&M: 70271 Subs Hosp L2
[2023-02-14] MEDS: Atorvastatin Calcium 40 MG Tablet PO (20:25)
[2023-02-15] VITALS (13 sets, daily range): BP systolic 115–129; BP diastolic 55–77; PULSE 79–89; RESP 16–20; TEMP 36.5–36.7; O2SAT 85–96
[2023-02-15] MEDS: Menthol/Lanolin/Calamine/Znox 113 GM Tube 1 APPLIC TOPICAL ×3 (05:18→21:02)
[2023-02-15] MEDS: Ipratropium/Albuterol Sulfate 3 ML AMPUL.NEB INHALATION ×4 (06:49→20:40)
[2023-02-15 09:12] LABS: Anion Gap 6 (5-15); BUN 38 mg/dL (7-18); BUN/Creat Ratio 34.5 RATIO (10-20); Calcium,Total 8.7 mg/dL (8.5-10.1); Chloride 93 mmol/L (98-107); EST Glomerular Filtration Rate 70 mL/min (>60); Est Glom Filt Rate - Afr Amer 84 mL/min (>60); Estimated Creatinine Clearance 36.46 ml/min; Glucose 108 mg/dL (74-106); Potassium 3.3 mmol/L (3.5-5.1); Sodium Level 133 mmol/L (136-145)
[2023-02-15] MEDS: guaiFENesin 1,200 MG Tablet 1200 MG PO ×2 (09:58→21:02)
[2023-02-15] MEDS: APIXABAN 2.5 MG TABLET (WCH) PO ×2 (09:58→21:02)
[2023-02-15] MEDS: Furosemide 40 MG/4 ML Vial IV ×2 (09:58→18:04)
[2023-02-15] MEDS: Cholecalciferol (VIT D3) 25 MCG TABLET (1,000 UNITS) PO (09:58)
[2023-02-15] MEDS: levoFLOXacin IV 750 MG/150 ML BAG 100 MG IV (09:58)
[2023-02-15] MEDS: Pantoprazole Sodium 40 MG Tablet PO ×2 (09:58→21:02)
[2023-02-15] MEDS: Losartan Potassium 100 MG Tablet PO (09:58)
[2023-02-15] MEDS: dexAMETHasone 4 MG Tablet 6 MG PO (09:59)
[2023-02-15] MEDS: hydroCHLOROthiazide 12.5mg 12.5 MG PO (09:59)
[2023-02-15] MEDS: Aspirin 81 MG TAB.CHEW PO (09:59)
[2023-02-15] MEDS: Potassium Chloride Oral Tablet 20 MEQ 60 MEQ PO (09:59)
--- NOTE | 2023-02-15 13:40 | CASEMGMT ---
Social Work SW met w/pt in room in regard to completing LW/POA. Pt does want to complete POA for healthcare, but is not up for doing it today. He plans to make his POA for healthcare. SW will stop back as time allows to assist pt in completing POA/LW. FARSHAD Terrell
--- NOTE | 2023-02-15 13:51 | CASEMGMT ---
Pt does not have LW/POA, would like to complete the documents but not today, would like to make his POA. FARSHAD Terrell
[2023-02-15] MEDS: Ensure Plus High Protein 120 ML LIQUID PO (14:07)
--- NOTE | 2023-02-15 16:11 | PN.HOSP_ITS ---
Subjective Subjective Doing well, no issues overnight. He did need 8 L with ambulation today Objective Data Objective Data Vital Signs: Vital Signs Temp Pulse Resp BP Pulse Ox O2 Del Method O2 Flow Rate 97.8 F 81 18 122/73 H 94 Nasal Cannula 4 02/15/23 14:05 02/15/23 15:17 02/15/23 15:17 02/15/23 14:05 02/15/23 14:05 02/15/23 14:05 02/15/23 14:05 FiO2 5 02/12/23 14:11 Oxygen Flow Rate (L/min) [ 8 AMBULATING with Oxygen #2] Oxygen Flow Rate (L/min) [ 4 AMBULATING with Oxygen #1] Oxygen Flow Rate (L/min) [At 4 REST with Oxygen] Oxygen Flow Rate (L/min) 4 Oxygen Delivery Method Nasal Cannula Weight: 95 lb 0.308 oz Body Mass Index (BMI) 16.8 Intake & Output: Intake and Output for Last 24 Hours 02/14/23 02/15/23 02/16/23 03:59 03:59 03:59 Intake Total 1796.25 / 1796.25 1130 / 1130 270.00 / 270.00 Output Total 875 / 875 900 / 900 Balance 921.25 / 921.25 230 / 230 270.00 / 270.00 Lab / Micro Data 02/14/23 06:00 02/15/23 07:47 Labs: Laboratory Results - last 24 hr 02/15/23 07:47: Sodium 133 L, Potassium 3.3 L, Chloride 93 L, Carbon Dioxide 34.0 H, Anion Gap 6, BUN 38 H, Creatinine 1.10, Estim Creat Clear Calc 36.46, Est GFR (MDRD) Af Amer 84, Est GFR (MDRD) Non-Af 70, BUN/Creatinine Ratio 34.5 H , Glucose 108 H, Calcium 8.7 Micro: Microbiology 02/12/23 18:10 Urine, Clean Catch Legionella Antigen - Final 02/12/23 18:10 Urine, Clean Catch Streptococcus pneumoniae Antigen (M - Final 02/12/23 15:35 Nasal Secretion SARS-CoV-2 Antigen (Rapid) - Final SARS-CoV-2 (COVID 19) Physical Exam Narrative General: Alert, Oriented x3, Cooperative, mild respiratory distress HEENT: Atraumatic, PERRLA, EOMI, Normocephalic Oral: Moist Mucosa Neck: Supple, No JVD Lungs: Diminished, Normal air movement, No rhonchi, No wheeze, No rales Cardiovascular: Regular rate, Regular Rhythm, Normal S1, Normal S2, No murmurs Abdomen: Soft, Non Tender, Non-Distended, No Hepato-splenomegaly Extremities: No edema, Capillary Refill Less than 3 Seconds Skin: No rashes, No breakdown Musculoskeletal: No Tenderness to Palpation of Joints or Extremities Neurological: Cranial nerves II-XII grossly intact, Motor Exam 5/5 strength throughout, Sensory exam intact to light touch and pain Psych/Mental Status: Normal Affect, Appropriate Assessment & Plan Assessment/Plan (1) Acute on chronic respiratory failure with hypoxia: (2) COPD exacerbation: (3) Pneumonia: (4) COVID-19 virus infection: PLAN: Plan 1. Acute on chronic hypoxic respiratory failure secondary to COVID-19 with possible superimposed bacterial pneumonia complicated by COPD/debility ? Continue with Decadron ? Symptoms started about 7 to 10 days ago with coughing ? We will hold off on remdesivir given how long has had symptoms ? We will trial him on as needed Lasix to get him back down to his 2 L nasal cannula at home. ? MRSA PCR is negative, continue with Levaquin every 48 hours ? PT/OT for evaluation 2. HTN/HLD/severe peripheral vascular disease ? Blood pressures are stable, can resume his home blood pressure medications ? Can resume his lipid medication ? Continue with Eliquis at 2.5 mg p.o. twice daily 3. Recent GI bleed due to AVM ? Continue with Protonix ? Stable 4. Severe malnutrition ? Consult nutrition DVT: Eliquis Charges/Coding Visit Charges Inpatient E&M: 96135 Subs Hosp L2
[2023-02-15] MEDS: 0.9% Saline Lock 10 ML Syringe IV ×2 (18:04→21:02)
[2023-02-15] MEDS: Atorvastatin Calcium 40 MG Tablet PO (21:02)
[2023-02-16] VITALS (21 sets, daily range): BP systolic 92–140; BP diastolic 62–76; PULSE 78–114; RESP 12–20; TEMP 36.3–36.7; O2SAT 88–100
[2023-02-16] MEDS: Menthol/Lanolin/Calamine/Znox 113 GM Tube 1 APPLIC TOPICAL ×2 (03:17→20:53)
[2023-02-16] MEDS: Ipratropium/Albuterol Sulfate 3 ML AMPUL.NEB INHALATION ×4 (07:02→20:07)
[2023-02-16 07:07] LABS: Absolute Lymphocyte Count 0.94 X10^3/uL (0.83-4.51); Absolute Neutrophil Count 9.4 X10^3/uL (2.0-7.7); Basophil# 0.01 X10^3/uL; Basophil% 0.1 % (0-1); Hematocrit 39.6 % (40-54); Hemoglobin 12.7 g/dL (13.0-16.5); Lymphocyte # 0.94 X10^3/ul (0.83-4.51); Lymphocyte % 8.5 % (19-41); Mean Corp Hgb Conc 32.1 g/dL (32-36); Mean Corpuscular Hgb 28.3 pg (27.0-32.0); Mean Corpuscular Volume 88.2 fL (80-94); Mean Platelet Vol. 11.2 fl (6.2-12.0); Monocyte# 0.59 X10^3/uL; Monocyte% 5.3 % (0-10); NRBC Flagged by Analyzer 0 % (0-5); Neutrophil # 9.42 X10^3/uL (2.7-7.7); Neutrophil % 85.4 % (47-70); Platelet Count 210 K/mm3 (150-450); RBC Distribution Width CV 14.9 % (11.6-14.6); RBC Distribution Width SD 48.5 fl (35.1-43.9); Red Blood Count 4.49 M/mm3 (4.6-6.2)
[2023-02-16 07:32] LABS: Anion Gap 5 (5-15); BUN 39 mg/dL (7-18); BUN/Creat Ratio 30.2 RATIO (10-20); Chloride 91 mmol/L (98-107); Creatinine, Serum 1.29 mg/dL (0.70-1.30); EST Glomerular Filtration Rate 58 mL/min (>60); Est Glom Filt Rate - Afr Amer 70 mL/min (>60); Estimated Creatinine Clearance 31.09 ml/min; Glucose 93 mg/dL (74-106); Potassium 3.4 mmol/L (3.5-5.1); Sodium Level 134 mmol/L (136-145)
[2023-02-16] MEDS: Ensure Plus High Protein 120 ML LIQUID PO ×2 (08:21→18:27)
[2023-02-16] MEDS: Losartan Potassium 100 MG Tablet PO (08:21)
[2023-02-16] MEDS: APIXABAN 2.5 MG TABLET (WCH) PO ×2 (08:21→20:45)
[2023-02-16] MEDS: guaiFENesin 1,200 MG Tablet 1200 MG PO ×2 (08:21→20:45)
[2023-02-16] MEDS: hydroCHLOROthiazide 12.5mg 12.5 MG PO (08:21)
[2023-02-16] MEDS: Aspirin 81 MG TAB.CHEW PO (08:22)
[2023-02-16] MEDS: Cholecalciferol (VIT D3) 25 MCG TABLET (1,000 UNITS) PO (08:22)
[2023-02-16] MEDS: dexAMETHasone 4 MG Tablet 6 MG PO (08:22)
[2023-02-16] MEDS: Pantoprazole Sodium 40 MG Tablet PO ×2 (08:22→20:45)
[2023-02-16] MEDS: Furosemide 40 MG/4 ML Vial IV (12:23)
[2023-02-16] MEDS: LORazepam 2 MG/ML Syringe 0.5 MG IV (12:56)
[2023-02-16] MEDS: 0.9% Saline Lock 10 ML Syringe IV ×2 (13:00→20:45)
--- NOTE | 2023-02-16 15:07 | PN.HOSP_ITS ---
Reason for Visit Reason for Visit: Diagnoses Elevated white blood cell count, unspecified (02/12/23) Unspecified severe protein-calorie malnutrition (02/12/23) Hypo-osmolality and hyponatremia (02/12/23) Pneumonia, unspecified organism (02/12/23) Chronic obstructive pulmonary disease with (acute) exacerbation (02/12/23) Acute and chronic respiratory failure with hypoxia (02/12/23) COVID-19 (02/12/23) Subjective Subjective Do increased to BiPAP today he did have some anxiety with the BiPAP so he was provided with as needed Ativan Objective Data Objective Data Vital Signs: Vital Signs Temp Pulse Resp BP Pulse Ox O2 Del Method O2 Flow Rate 97.4 F L 81 20 H 94/64 98 Bi-pap 8 02/16/23 12:20 02/16/23 12:20 02/16/23 12:20 02/16/23 12:20 02/16/23 12:20 02/16/23 12:20 02/16/23 11:28 FiO2 60 02/16/23 12:01 Oxygen Flow Rate (L/min) [ 8 AMBULATING with Oxygen #2] Oxygen Flow Rate (L/min) [ 4 AMBULATING with Oxygen #1] Oxygen Flow Rate (L/min) [At 4 REST with Oxygen] Oxygen Flow Rate (L/min) 8 Oxygen Delivery Method Bi-pap Weight: 95 lb 0.308 oz Body Mass Index (BMI) 16.8 Intake & Output: Intake and Output for Last 24 Hours 02/15/23 02/16/23 02/17/23 03:59 03:59 03:59 Intake Total 1130 / 1130 510.00 / 510.00 0 / 0 Output Total 900 / 900 Balance 230 / 230 510.00 / 510.00 0 / 0 Lab / Micro Data 02/16/23 06:10 02/16/23 06:10 Labs: Laboratory Results - last 24 hr 02/16/23 06:10: WBC 11.0, RBC 4.49 L, Hgb 12.7 L, Hct 39.6 L, MCV 88.2, MCH 28.3, MCHC 32.1, RDW Std Deviation 48.5 H, RDW Coeff of Barbara 14.9 H, Plt Count 210, MPV 11.2, Immature Gran % (Auto) 0.700, Neut % (Auto) 85.4 H, Lymph % (Auto) 8.5 L, [place] % (Auto) 5.3, Eos % (Auto) 0.0, Baso % (Auto) 0.1, Absolute Neuts (auto) 9.4 H, Absolute Lymphs (auto) 0.94, Nucleated RBC % 0, Sodium 134 L , Potassium 3.4 L, Chloride 91 L, Carbon Dioxide 38.0 H, Anion Gap 5, BUN 39 H, Creatinine 1.29, Estim Creat Clear Calc 31.09, Est GFR (MDRD) Af Amer 70, Est GFR (MDRD) Non-Af 58 L, BUN/Creatinine Ratio 30.2 H, Glucose 93, Calcium 9.0 Micro: Microbiology 02/12/23 18:10 Urine, Clean Catch Legionella Antigen - Final 02/12/23 18:10 Urine, Clean Catch Streptococcus pneumoniae Antigen (M - Final 02/12/23 15:35 Nasal Secretion SARS-CoV-2 Antigen (Rapid) - Final SARS-CoV-2 (COVID 19) Physical Exam Narrative General: Alert, Oriented x3, Cooperative, mild respiratory distress HEENT: Atraumatic, PERRLA, EOMI, Normocephalic Oral: Moist Mucosa Neck: Supple, No JVD Lungs: Diminished, Normal air movement, No rhonchi, No wheeze, No rales Cardiovascular: Regular rate, Regular Rhythm, Normal S1, Normal S2, No murmurs Abdomen: Soft, Non Tender, Non-Distended, No Hepato-splenomegaly Extremities: No edema, Capillary Refill Less than 3 Seconds Skin: No rashes, No breakdown Musculoskeletal: No Tenderness to Palpation of Joints or Extremities Neurological: Motor Exam 5/5 strength throughout, Sensory exam intact to light touch and pain Psych/Mental Status: Anxious Assessment & Plan Assessment/Plan (1) Acute on chronic respiratory failure with hypoxia: (2) COPD exacerbation: (3) Pneumonia: (4) COVID-19 virus infection: PLAN: Plan 1. Acute on chronic hypoxic respiratory failure secondary to COVID-19 with possible superimposed bacterial pneumonia complicated by COPD/debility ? Continue with Decadron ? Symptoms started about 7 to 10 days ago with coughing can take out of precautions today ? We will hold off on remdesivir given how long has had symptoms ? We will increase to BiPAP today if necessary can obtain pulmonology consult if there is no improvement ? We will trial him on as needed Lasix to get him back down to his 2 L nasal cannula at home. ? MRSA PCR is negative, continue with Levaquin every 48 hours, last dose probably tomorrow ? PT/OT for evaluation 2. HTN/HLD/severe peripheral vascular disease ? Blood pressures are stable, can resume his home blood pressure medications ? Can resume his lipid medication ? Continue with Eliquis at 2.5 mg p.o. twice daily 3. Recent GI bleed due to AVM ? Continue with Protonix ? Stable 4. Severe malnutrition ? Consult nutrition DVT: Eliquis Charges/Coding Visit Charges Inpatient E&M: 47360 Subs Hosp L2
[2023-02-16] MEDS: Atorvastatin Calcium 40 MG Tablet PO (20:45)
[2023-02-17] VITALS (17 sets, daily range): BP systolic 83–122; BP diastolic 57–78; PULSE 80–92; RESP 16–23; TEMP 36.3–36.5; O2SAT 88–97
[2023-02-17] MEDS: levoFLOXacin IV 750 MG/150 ML BAG 100 MG IV (08:35)
[2023-02-17] MEDS: guaiFENesin 1,200 MG Tablet 1200 MG PO (08:36)
[2023-02-17] MEDS: Potassium Chloride Oral Tablet 20 MEQ 60 MEQ PO (08:36)
[2023-02-17] MEDS: Aspirin 81 MG TAB.CHEW PO (08:36)
[2023-02-17] MEDS: Pantoprazole Sodium 40 MG Tablet PO ×2 (08:36→21:35)
[2023-02-17] MEDS: APIXABAN 2.5 MG TABLET (WCH) PO ×2 (08:36→21:35)
[2023-02-17] MEDS: dexAMETHasone 4 MG Tablet 6 MG PO (08:37)
[2023-02-17] MEDS: Cholecalciferol (VIT D3) 25 MCG TABLET (1,000 UNITS) PO (08:37)
[2023-02-17] MEDS: Ensure Plus High Protein 120 ML LIQUID PO (08:37)
--- NOTE | 2023-02-17 09:44 | PCM.PN.HOSP ---
Subjective Subjective Off of BiPAP today, still on high flow nasal cannula Objective Data Objective Data Vital Signs: Vital Signs Temp Pulse Resp BP Pulse Ox O2 Del Method O2 Flow Rate 97.6 F L 89 18 83/68 L 93 High Flow 12 02/17/23 09:38 02/17/23 09:38 02/17/23 09:38 02/17/23 09:38 02/17/23 09:38 02/17/23 09:38 02/17/23 09:38 FiO2 93 02/17/23 07:45 Oxygen Flow Rate (L/min) [ 8 AMBULATING with Oxygen #2] Oxygen Flow Rate (L/min) [ 4 AMBULATING with Oxygen #1] Oxygen Flow Rate (L/min) [At 4 REST with Oxygen] Oxygen Flow Rate (L/min) 12 Oxygen Delivery Method High Flow Weight: 95 lb 0.308 oz Body Mass Index (BMI) 16.8 Intake & Output: Intake and Output for Last 24 Hours 02/16/23 02/17/23 02/18/23 03:59 03:59 03:59 Intake Total 510.00 / 510.00 440 / 440 Output Total 500 / 500 300 / 300 Balance 510.00 / 510.00 -60 / -60 -300 / -300 Lab / Micro Data 02/16/23 06:10 02/16/23 06:10 Micro: Microbiology 02/12/23 18:10 Urine, Clean Catch Legionella Antigen - Final 02/12/23 18:10 Urine, Clean Catch Streptococcus pneumoniae Antigen (M - Final 02/12/23 15:35 Nasal Secretion SARS-CoV-2 Antigen (Rapid) - Final SARS-CoV-2 (COVID 19) Physical Exam Narrative General: Alert, Oriented x3, Cooperative, mild respiratory distress HEENT: Atraumatic, PERRLA, EOMI, Normocephalic Oral: Moist Mucosa Neck: Supple, No JVD Lungs: Diminished, Normal air movement, No rhonchi, No wheeze, No rales Cardiovascular: Regular rate, Regular Rhythm, Normal S1, Normal S2, No murmurs Abdomen: Soft, Non Tender, Non-Distended, No Hepato-splenomegaly Extremities: No edema, Capillary Refill Less than 3 Seconds Skin: No rashes, No breakdown Musculoskeletal: No Tenderness to Palpation of Joints or Extremities Neurological: Motor Exam 5/5 strength throughout, Sensory exam intact to light touch and pain Psych/Mental Status: Normal affect Assessment & Plan Assessment/Plan (1) Acute on chronic respiratory failure with hypoxia: (2) COPD exacerbation: (3) Pneumonia: (4) COVID-19 virus infection: PLAN: Plan 1. Acute on chronic hypoxic respiratory failure secondary to COVID-19 with possible superimposed bacterial pneumonia complicated by COPD/debility ? Continue with Decadron ? Symptoms started about 7 to 10 days ago with coughing can take out of precautions today ? We will hold off on remdesivir given how long has had symptoms ? Has been well, off of BiPAP today we will monitor ? We will trial him on as needed Lasix to get him back down to his 2 L nasal cannula at home. ? MRSA PCR is negative, continue with Levaquin every 48 hours, has had 4 every 48 hour doses of Levaquin will discontinue after today's dose ? PT/OT for evaluation 2. HTN/HLD/severe peripheral vascular disease ? Blood pressures are stable, can resume his home blood pressure medications ? Can resume his lipid medication ? Continue with Eliquis at 2.5 mg p.o. twice daily 3. Recent GI bleed due to AVM ? Continue with Protonix ? Stable 4. Severe malnutrition ? Consult nutrition DVT: Eliquis Charges/Coding Visit Charges Inpatient E&M: 92140 Subs Hosp L2
[2023-02-17] MEDS: Ipratropium/Albuterol Sulfate 3 ML AMPUL.NEB INHALATION ×2 (14:32→20:13)
[2023-02-17] MEDS: Menthol/Lanolin/Calamine/Znox 113 GM Tube 1 APPLIC TOPICAL (15:10)
[2023-02-17] MEDS: Atorvastatin Calcium 40 MG Tablet PO (21:34)
[2023-02-18] VITALS (16 sets, daily range): BP systolic 95–123; BP diastolic 57–73; PULSE 65–95; RESP 12–20; TEMP 36.3–36.6; O2SAT 88–100
[2023-02-18 07:09] LABS: Absolute Neutrophil Count 5.3 X10^3/uL (2.0-7.7); Basophil# 0.01 X10^3/uL; Basophil% 0.1 % (0-1); Eosinophil# 0.01 X10^3/uL; Eosinophils% 0.1 % (0-5); Hematocrit 37.3 % (40-54); Lymphocyte % 13.1 % (19-41); Mean Corp Hgb Conc 32.2 g/dL (32-36); Mean Corpuscular Hgb 28.1 pg (27.0-32.0); Mean Corpuscular Volume 87.4 fL (80-94); Mean Platelet Vol. 10.7 fl (6.2-12.0); Monocyte# 0.56 X10^3/uL; Monocyte% 8.2 % (0-10); NRBC Flagged by Analyzer 0 % (0-5); Neutrophil # 5.31 X10^3/uL (2.7-7.7); Neutrophil % 77.6 % (47-70); Platelet Count 242 K/mm3 (150-450); RBC Distribution Width CV 14.9 % (11.6-14.6); RBC Distribution Width SD 47.8 fl (35.1-43.9); Red Blood Count 4.27 M/mm3 (4.6-6.2); White Blood Count 6.9 K/mm3 (4.4-11.0)
[2023-02-18 07:39] LABS: Anion Gap 5 (5-15); BUN 35 mg/dL (7-18); BUN/Creat Ratio 32.4 RATIO (10-20); Calcium,Total 8.8 mg/dL (8.5-10.1); Chloride 95 mmol/L (98-107); Creatinine, Serum 1.08 mg/dL (0.70-1.30); EST Glomerular Filtration Rate 71 mL/min (>60); Est Glom Filt Rate - Afr Amer 86 mL/min (>60); Estimated Creatinine Clearance 37.14 ml/min; Glucose 77 mg/dL (74-106); Potassium 3.3 mmol/L (3.5-5.1); Sodium Level 133 mmol/L (136-145)
[2023-02-18] MEDS: Ensure Plus High Protein 120 ML LIQUID PO (10:20)
[2023-02-18] MEDS: Aspirin 81 MG TAB.CHEW PO (10:22)
[2023-02-18] MEDS: Losartan Potassium 100 MG Tablet PO (10:22)
[2023-02-18] MEDS: dexAMETHasone 4 MG Tablet 6 MG PO (10:23)
[2023-02-18] MEDS: APIXABAN 2.5 MG TABLET (WCH) PO (10:24)
[2023-02-18] MEDS: hydroCHLOROthiazide 12.5mg 12.5 MG PO (10:24)
[2023-02-18] MEDS: Cholecalciferol (VIT D3) 25 MCG TABLET (1,000 UNITS) PO (11:56)
[2023-02-18] MEDS: Pantoprazole Sodium 40 MG Tablet PO (11:56)
[2023-02-18] MEDS: Furosemide 20 MG/2 ML VIAL IV (12:05)
--- NOTE | 2023-02-18 12:42 | RAD_ITS ---
EXAM: XR CHEST, 1 VIEW CLINICAL INDICATION: hypoxia TECHNIQUE: Frontal view of the chest. COMPARISON: No relevant prior studies available. FINDINGS: LUNGS AND PLEURAL SPACES: Bibasilar scarring/atelectasis. No pneumothorax. No effusion. HEART: Unremarkable. Cardiac silhouette not enlarged. MEDIASTINUM: Central airways and mediastinal contour are unremarkable. BONES/JOINTS: Severe degenerative changes of the spine with levoscoliosis of the thoracolumbar junction. SOFT TISSUES: Unremarkable. VASCULATURE: Atherosclerotic changes and ectasia of the thoracic aorta. RAD/Chest 1 View (Portable) IMPRESSION: No acute findings in the chest. Chronic changes as described. Electronically Signed: Jabari Blanco MD at 4:40 EDT ,
[2023-02-18] MEDS: Potassium Chloride Oral Tablet 20 MEQ 40 MEQ PO (15:51)
[2023-02-18] MEDS: Menthol/Lanolin/Calamine/Znox 113 GM Tube 1 APPLIC TOPICAL (15:51)
--- NOTE | 2023-02-18 18:35 | PCM.PN.HOSP ---
Reason for Visit Reason for Visit: Diagnoses Elevated white blood cell count, unspecified (02/12/23) Unspecified severe protein-calorie malnutrition (02/12/23) Hypo-osmolality and hyponatremia (02/12/23) Pneumonia, unspecified organism (02/12/23) Chronic obstructive pulmonary disease with (acute) exacerbation (02/12/23) Acute and chronic respiratory failure with hypoxia (02/12/23) COVID-19 (02/12/23) Subjective Subjective Patient was seen and examined today, he is now requiring Airvo to maintain his pulse ox above 90%, I had a discussion with the patient's family members-they state that he is tired at this time and may be ready to give up family wanted to know if there is any possibility the patient would improve, I told him that over the next 48 hours we would see how the patient's medical status goes, I did emphasize that the patient has severe emphysema, he is also malnourished and does not eat-I recommended that we use an appetite stimulant such as Marinol, I will start this today. I obtained a chest x-ray on the patient today due to his declining respiratory status, it appears from this examiner that he has severe emphysematous changes and severe thoracic scoliosis. I relayed this to the family, patient's chest x-ray read out is not back at this time Objective Data Objective Data Vital Signs: Vital Signs Temp Pulse Resp BP Pulse Ox O2 Del Method O2 Flow Rate 97.5 F L 89 20 H 95/57 L 98 Airvo 60 02/18/23 18:06 02/18/23 18:06 02/18/23 18:06 02/18/23 18:06 02/18/23 18:06 02/18/23 18:06 02/18/23 18:06 FiO2 73 02/18/23 18:06 Oxygen Flow Rate (L/min) [ 8 AMBULATING with Oxygen #2] Oxygen Flow Rate (L/min) [ 4 AMBULATING with Oxygen #1] Oxygen Flow Rate (L/min) [At 4 REST with Oxygen] Oxygen Flow Rate (L/min) 60 Oxygen Delivery Method Airvo Weight: 43.1 kg Body Mass Index (BMI) 16.8 Intake & Output: Intake and Output for Last 24 Hours 02/16/23 02/17/23 02/18/23 23:59 23:59 23:59 Intake Total 240 / 440 590 / 590 780 / 780 Output Total 1500 / 1500 950 / 950 Balance 240 / -60 -910 / -910 -170 / -170 Medical Nutrition Assessment Dietitian: Malnutrition Criteria Met Start: 02/17/23 15:33 Freq: Status: Active Protocol: Document 02/17/23 15:33 RMA (Rec: 02/17/23 15:33 RMA [id number]) Nutrition Malnutrition Evidence of Malnutrition Exists Yes Malnutrition (severe): Chronic Evidenced By Suboptimal Energy Intake ( Severe),Weight Loss (Severe) Clinical Problem Chronic Disease or Condition Related Malnutrition Etiology Severe protein-calorie malnutrition in the context of chronic disease/debility related to inadequate oral intake and alcohol abuse Signs/Symptoms as evidenced by BMI 16.8, 10% weight loss in less than 6 months, PO meeting less than 50% estimated nutrition needs for past 4-6 months Status Active Problem Unintended Weight Loss Etiology related to predicted inadequate oral intake Signs/Symptoms as evidenced 18.8lbs (16.5%) weight loss in 6.5 months Status Active Problem Recommendation Dietitian Recommendations/Changes Will liberalize diet to regular given signs/symptoms of malnutrition. Will continue ensure plus high protein TID w/ medpass. Will add magic cup BID w/ lunch and dinner for tolerance . Lab / Micro Data 02/18/23 06:11 02/18/23 06:11 Labs: Laboratory Results - last 24 hr 02/18/23 06:11: WBC 6.9, RBC 4.27 L, Hgb 12.0 L, Hct 37.3 L, MCV 87.4, MCH 28.1, MCHC 32.2, RDW Std Deviation 47.8 H, RDW Coeff of [place] 14.9 H, Plt Count 242, MPV 10.7, Immature Gran % (Auto) 0.900, Neut % (Auto) 77.6 H, Lymph % (Auto) 13.1 L, [place] % (Auto) 8.2, Eos % (Auto) 0.1, Baso % (Auto) 0.1, Absolute Neuts (auto) 5.3, Absolute Lymphs (auto) 0.90, Nucleated RBC % 0, Sodium 133 L, Potassium 3.3 L, Chloride 95 L, Carbon Dioxide 33.0 H, Anion Gap 5, BUN 35 H, Creatinine 1.08, Estim Creat Clear Calc 37.14, Est GFR (MDRD) Af Amer 86, Est GFR (MDRD) Non-Af 71, BUN/Creatinine Ratio 32.4 H, Glucose 77, Calcium 8.8 Micro: Microbiology 02/12/23 18:10 Urine, Clean Catch Legionella Antigen - Final 02/12/23 18:10 Urine, Clean Catch Streptococcus pneumoniae Antigen (M - Final 02/12/23 15:35 Nasal Secretion SARS-CoV-2 Antigen (Rapid) - Final SARS-CoV-2 (COVID 19) Physical Exam Const alert, oriented x3 and no apparent distress Constitutional Narrative: Patient appears older than his stated age, he appears cachectic General Appearance: cooperative, well kempt and well developed Orientation / Consciousness: awake, oriented to person, oriented to place and oriented to time HEENT normocephalic, head/scalp atraumatic and moist oral mucous membranes Eyes PERRL, EOMs intact bilaterally and conjunctivae normal Neck supple, no JVD, thyroid normal and no carotid bruits General: trachea midline Resp normal respiratory effort, no retractions and no use of accessory muscles Resp Narrative: Breath sounds are diminished bilaterally Auscultation: Negative for rales, rhonchi or wheezes Cardio regular rate, regular rhythm, S1 normal heart sound, S2 normal heart sound, no murmurs, no rub and no gallops GI normal to inspection, nondistended, normoactive bowel sounds, soft to palpation, non-tender and non-distended Extremity no clubbing, cyanosis or edema Skin no rashes or lesions noted General Skin Exam: no breakdown Neuro CN's II-XII intact bilaterally, moves all extremities, no focal motor deficits and no sensory deficits noted Sensorium / Orientation: awake, alert, oriented to person and oriented to place Speech: speech normal Psych affect normal Assessment & Plan Assessment/Plan (1) COVID-19 virus infection: PLAN: Plan 1. Acute on chronic hypoxic respiratory failure-secondary to COVID-19 infection on superimposed severe COPD-patient is now on Airvo, prognosis is guarded at this time, will continue to provide supportive care, aerosol treatments, oral corticosteroids, I have elected to place the patient on oral Lasix and stop his hydrochlorothiazide. #2 COVID-19 infection-patient is receiving Decadron, it is unclear how long he has had the symptoms but he tells this examiner that he has been symptomatic for at least 10 days. Patient has had some of his COVID immunizations. #3 severe COPD-again I obtained a chest x-ray on him today which does not show an obvious change from previous x-rays except for the fact that the right lower lobe infiltrate is not readily seen on the chest x-ray today. I am awaiting official read out at the time of this dictation #4 severe protein and caloric malnutrition-as evidenced by BMI of 16.8, 10% weight loss and less than 6 months, p.o. intake meeting less than 50% of nutritional requirements for the last 4 to 6 months-patient is on a general diet with energy and protein modification, and Ensure Plus high-protein is being given to the patient along with Magic cup dessert-I have elected to start the patient on Marinol, nutritional services is participating in his care. Total clinical time spent by myself addressing the patient's medical issues, reviewing all of his data, and collaborating with patient's care team: 50 minutes Charges/Coding Visit Charges Inpatient E&M: 97307 Subs Hosp L3
--- NOTE | 2023-02-18 20:22 | CPS ---
decreased airvo to 50l 65%-pt karon well
--- NOTE | 2023-02-18 23:19 | CPS ---
decreased fio2 to 50%-pt sleeping at this time-no resp distess noted
[2023-02-19] VITALS (11 sets, daily range): BP systolic 94–138; BP diastolic 58–78; PULSE 59–100; RESP 13–20; TEMP 36.4–36.6; O2SAT 93–98
--- NOTE | 2023-02-19 05:23 | CPS ---
decreased to 45L
[2023-02-19] MEDS: Ensure Plus High Protein 120 ML LIQUID PO ×2 (08:22→17:04)
[2023-02-19] MEDS: APIXABAN 2.5 MG TABLET (WCH) PO ×2 (08:23→21:53)
[2023-02-19] MEDS: dexAMETHasone 4 MG Tablet 6 MG PO (08:23)
[2023-02-19] MEDS: Furosemide 40 MG Tablet PO (08:29)
--- NOTE | 2023-02-19 14:27 | PN.HOSP_ITS ---
Reason for Visit Reason for Visit: Diagnoses Elevated white blood cell count, unspecified (02/12/23) Unspecified severe protein-calorie malnutrition (02/12/23) Hypo-osmolality and hyponatremia (02/12/23) Pneumonia, unspecified organism (02/12/23) Chronic obstructive pulmonary disease with (acute) exacerbation (02/12/23) Acute and chronic respiratory failure with hypoxia (02/12/23) COVID-19 (02/12/23) Subjective Subjective Patient was seen and examined today, he remains on Airvo, he does not appear to be in respiratory distress, blood pressure is running a little bit low at 94/66. Objective Data Objective Data Vital Signs: Vital Signs Temp Pulse Resp BP Pulse Ox O2 Del Method O2 Flow Rate 97.6 F L 81 14 94/66 94 Airvo 50 02/19/23 12:00 02/19/23 12:00 02/19/23 12:00 02/19/23 12:00 02/19/23 12:00 02/19/23 12:00 02/19/23 01:55 FiO2 50 02/19/23 09:14 Oxygen Flow Rate (L/min) [ 8 AMBULATING with Oxygen #2] Oxygen Flow Rate (L/min) [ 4 AMBULATING with Oxygen #1] Oxygen Flow Rate (L/min) [At 4 REST with Oxygen] Oxygen Flow Rate (L/min) 50 Oxygen Delivery Method Airvo Weight: 43.1 kg Body Mass Index (BMI) 16.8 Intake & Output: Intake and Output for Last 24 Hours 02/17/23 02/18/23 02/19/23 23:59 23:59 23:59 Intake Total 590 / 590 780 / 780 120 / 120 Output Total 1500 / 1500 950 / 950 100 / 100 Balance -910 / -910 -170 / -170 Medical Nutrition Assessment Dietitian: Malnutrition Criteria Met Start: 02/17/23 15:33 Freq: Status: Active Protocol: Document 02/17/23 15:33 RMA (Rec: 02/17/23 15:33 RMA [id number]) Nutrition Malnutrition Evidence of Malnutrition Exists Yes Malnutrition (severe): Chronic Evidenced By Suboptimal Energy Intake ( Severe),Weight Loss (Severe) Clinical Problem Chronic Disease or Condition Related Malnutrition Etiology Severe protein-calorie malnutrition in the context of chronic disease/debility related to inadequate oral intake and alcohol abuse Signs/Symptoms as evidenced by BMI 16.8, 10% weight loss in less than 6 months, PO meeting less than 50% estimated nutrition needs for past 4-6 months Status Active Problem Unintended Weight Loss Etiology related to predicted inadequate oral intake Signs/Symptoms as evidenced 18.8lbs (16.5%) weight loss in 6.5 months Status Active Problem Recommendation Dietitian Recommendations/Changes Will liberalize diet to regular given signs/symptoms of malnutrition. Will continue ensure plus high protein TID w/ medpass. Will add magic cup BID w/ lunch and dinner for tolerance . Lab / Micro Data 02/18/23 06:11 02/18/23 06:11 Micro: Microbiology 02/12/23 18:10 Urine, Clean Catch Legionella Antigen - Final 02/12/23 18:10 Urine, Clean Catch Streptococcus pneumoniae Antigen (M - Fi nal 02/12/23 15:35 Nasal Secretion SARS-CoV-2 Antigen (Rapid) - Final SARS-CoV-2 (COVID 19) Radiography Diagnostic Testing: Radiology Impression Chest X-Ray 02/18/23 12:42 IMPRESSION: No acute findings in the chest. Chronic changes as described. Electronically Signed: Jabari Blanco MD at 4:40 EDT , Physical Exam Narrative alert, oriented x3 and no apparent distress Constitutional Narrative: Patient appears older than his stated age, he appears cachectic General Appearance: cooperative, well kempt and well developed Orientation / Consciousness: awake, oriented to person, oriented to place and oriented to time HEENT normocephalic, head/scalp atraumatic and moist oral mucous membranes Eyes PERRL, EOMs intact bilaterally and conjunctivae normal Neck supple, no JVD, thyroid normal and no carotid bruits General: trachea midline Resp normal respiratory effort, no retractions and no use of accessory muscles Resp Narrative: Breath sounds are diminished bilaterally Auscultation: Negative for rales, rhonchi or wheezes Cardio regular rate, regular rhythm, S1 normal heart sound, S2 normal heart sound, no murmurs, no rub and no gallops GI normal to inspection, nondistended, normoactive bowel sounds, soft to palpation, non-tender and non-distended Extremity no clubbing, cyanosis or edema Skin no rashes or lesions noted General Skin Exam: no breakdown Neuro CN's II-XII intact bilaterally, moves all extremities, no focal motor deficits and no sensory deficits noted Sensorium / Orientation: awake, alert, oriented to person and oriented to place Speech: speech normal Psych affect normal Assessment & Plan Assessment/Plan (1) COVID-19 virus infection: PLAN: Plan 1. Acute on chronic hypoxic respiratory failure-secondary to COVID-19 infection on superimposed severe COPD-patient is now on Airvo, prognosis is guarded at this time, will continue to provide supportive care, aerosol treatments, oral corticosteroids, patient remains on oral diuretics, his blood pressure is a little low today and this may complicate the use of the diuretic. #2 COVID-19 infection-patient is receiving Decadron, it is unclear how long he has had the symptoms but he tells this examiner that he has been symptomatic for at least 10 days. Patient has had some of his COVID immunizations. #3 severe COPD-complicates care, medical course, recovery, and prognosis #4 severe protein and caloric malnutrition-as evidenced by BMI of 16.8, 10% weight loss and less than 6 months, p.o. intake meeting less than 50% of nutritional requirements for the last 4 to 6 months-patient is on a general diet with energy and protein modification, and Ensure Plus high-protein is being given to the patient along with Magic cup dessert-patient is on Marinol, he is being seen by nutritional services Total clinical time spent by myself addressing the patient's medical issues, reviewing all of his data, and collaborating with patient's care team: 25 minutes Charges/Coding Visit Charges Inpatient E&M: 24497 Subs Hosp L1
[2023-02-19] MEDS: Dronabinol 2.5 MG Capsule PO (15:56)
[2023-02-19] MEDS: Acetaminophen 325 MG Tablet 650 MG PO (17:19)
[2023-02-19] MEDS: Ipratropium/Albuterol Sulfate 3 ML AMPUL.NEB INHALATION (19:25)
[2023-02-19] MEDS: Pantoprazole Sodium 40 MG Tablet PO (21:53)
[2023-02-20] VITALS (20 sets, daily range): BP systolic 91–124; BP diastolic 59–75; PULSE 67–96; RESP 14–26; TEMP 36.3–36.8; O2SAT 89–98
[2023-02-20] MEDS: Dronabinol 2.5 MG Capsule PO ×2 (05:57→15:59)
[2023-02-20] MEDS: Ipratropium/Albuterol Sulfate 3 ML AMPUL.NEB INHALATION ×3 (09:52→19:39)
[2023-02-20] MEDS: Aspirin 81 MG TAB.CHEW PO (10:22)
[2023-02-20] MEDS: Ensure Plus High Protein 120 ML LIQUID PO ×3 (10:22→18:09)
[2023-02-20] MEDS: APIXABAN 2.5 MG TABLET (WCH) PO ×2 (10:23→20:37)
[2023-02-20] MEDS: Pantoprazole Sodium 40 MG Tablet PO ×2 (10:23→20:37)
[2023-02-20] MEDS: Furosemide 40 MG Tablet PO (10:23)
[2023-02-20] MEDS: Losartan Potassium 100 MG Tablet PO (10:23)
[2023-02-20] MEDS: dexAMETHasone 4 MG Tablet 6 MG PO (10:23)
[2023-02-20] MEDS: Cholecalciferol (VIT D3) 25 MCG TABLET (1,000 UNITS) PO (10:24)
[2023-02-20] MEDS: Acetaminophen 325 MG Tablet 650 MG PO ×2 (10:33→18:09)
--- NOTE | 2023-02-20 14:21 | CASEMGMT ---
SW spoke with patient. Introduced self and role at [facility]. SW asked patient if he would like SW to assist him in completing a Healthcare Power of Delivery Representative or a Healthcare Living Will. Patient declined. SW let patient know if he changes his mind to let the nurse or aide know and they can pass the message to SW. Misty PRYOR
[2023-02-20] MEDS: Menthol/Lanolin/Calamine/Znox 113 GM Tube 1 APPLIC TOPICAL (16:00)
--- NOTE | 2023-02-20 18:49 | PCM.PN.HOSP ---
Reason for Visit Reason for Visit: Diagnoses Elevated white blood cell count, unspecified (02/12/23) Unspecified severe protein-calorie malnutrition (02/12/23) Hypo-osmolality and hyponatremia (02/12/23) Pneumonia, unspecified organism (02/12/23) Chronic obstructive pulmonary disease with (acute) exacerbation (02/12/23) Acute and chronic respiratory failure with hypoxia (02/12/23) COVID-19 (02/12/23) Subjective Subjective Patient was seen and [place] today, I had a brief discussion with him regarding how aggressive to get with his medical care, he states that he was not willing to give up at the present time and he would like to continue to be treated. Patient's son was in the room at the time of my examination today. Patient is still requiring Airvo. Objective Data Objective Data Vital Signs: Vital Signs Temp Pulse Resp BP Pulse Ox O2 Del Method O2 Flow Rate 97.7 F L 80 20 H 99/59 L 96 Airvo 45 02/20/23 18:15 02/20/23 18:15 02/20/23 18:15 02/20/23 18:15 02/20/23 18:15 02/20/23 18:15 02/20/23 18:15 FiO2 42 02/20/23 18:15 Oxygen Flow Rate (L/min) [ 8 AMBULATING with Oxygen #2] Oxygen Flow Rate (L/min) [ 4 AMBULATING with Oxygen #1] Oxygen Flow Rate (L/min) [At 4 REST with Oxygen] Oxygen Flow Rate (L/min) 45 Oxygen Delivery Method Airvo Weight: 43.1 kg Body Mass Index (BMI) 16.8 Intake & Output: Intake and Output for Last 24 Hours 02/18/23 02/19/23 02/20/23 23:59 23:59 23:59 Intake Total 780 / 780 170 / 240 170 / 170 Output Total 950 / 950 100 / 700 850 / 850 Balance -170 / -170 70 / -460 -680 / -680 Medical Nutrition Assessment Dietitian: Malnutrition Criteria Met Start: 02/17/23 15:33 Freq: Status: Active Protocol: Document 02/17/23 15:33 RMA (Rec: 02/17/23 15:33 RMA [id number]) Nutrition Malnutrition Evidence of Malnutrition Exists Yes Malnutrition (severe): Chronic Evidenced By Suboptimal Energy Intake ( Severe),Weight Loss (Severe) Clinical Problem Chronic Disease or Condition Related Malnutrition Etiology Severe protein-calorie malnutrition in the context of chronic disease/debility related to inadequate oral intake and alcohol abuse Signs/Symptoms as evidenced by BMI 16.8, 10% weight loss in less than 6 months, PO meeting less than 50% estimated nutrition needs for past 4-6 months Status Active Problem Unintended Weight Loss Etiology related to predicted inadequate oral intake Signs/Symptoms as evidenced 18.8lbs (16.5%) weight loss in 6.5 months Status Active Problem Recommendation Dietitian Recommendations/Changes Will liberalize diet to regular given signs/symptoms of malnutrition. Will continue ensure plus high protein TID w/ medpass. Will add magic cup BID w/ lunch and dinner for tolerance . Lab / Micro Data 02/18/23 06:11 02/18/23 06:11 Micro: Microbiology 02/12/23 18:10 Urine, Clean Catch Legionella Antigen - Final 02/12/23 18:10 Urine, Clean Catch Streptococcus pneumoniae Antigen (M - Final 02/12/23 15:35 Nasal Secretion SARS-CoV-2 Antigen (Rapid) - Final SARS-CoV-2 (COVID 19) Physical Exam Narrative alert, oriented x3 and no apparent distress Constitutional Narrative: Patient appears older than his stated age, he appears cachectic General Appearance: cooperative, well kempt and well developed Orientation / Consciousness: awake, oriented to person, oriented to place and oriented to time HEENT normocephalic, head/scalp atraumatic and moist oral mucous membranes Eyes PERRL, EOMs intact bilaterally and conjunctivae normal Neck supple, no JVD, thyroid normal and no carotid bruits General: trachea midline Resp normal respiratory effort, no retractions and no use of accessory muscles Resp Narrative: Breath sounds are diminished bilaterally Auscultation: Negative for rales, rhonchi or wheezes Cardio regular rate, regular rhythm, S1 normal heart sound, S2 normal heart sound, no murmurs, no rub and no gallops GI normal to inspection, nondistended, normoactive bowel sounds, soft to palpation, non-tender and non-distended Extremity no clubbing, cyanosis or edema Skin no rashes or lesions noted General Skin Exam: no breakdown Neuro CN's II-XII intact bilaterally, moves all extremities, no focal motor deficits and no sensory deficits noted Sensorium / Orientation: awake, alert, oriented to person and oriented to place Speech: speech normal Psych affect normal Assessment & Plan Assessment/Plan (1) COVID-19 virus infection: PLAN: Plan 1. Acute on chronic hypoxic respiratory failure-secondary to COVID-19 infection on superimposed severe COPD-patient is now on Airvo, prognosis is guarded at this time, will continue to provide supportive care, aerosol treatments, oral corticosteroids, patient remains on oral diuretics, his blood pressure is a little low today and this may complicate the use of the diuretic. Patient indicates that he still wants to be treated medically. #2 COVID-19 infection-patient is receiving Decadron, it is unclear how long he has had the symptoms but he tells this examiner that he has been symptomatic for at least 10 days. Patient has had some of his COVID immunizations. #3 severe COPD-complicates care, medical course, recovery, and prognosis #4 severe protein and caloric malnutrition-as evidenced by BMI of 16.8, 10% weight loss and less than 6 months, p.o. intake meeting less than 50% of nutritional requirements for the last 4 to 6 months-patient is on a general diet with energy and protein modification, and Ensure Plus high-protein is being given to the patient along with Magic cup dessert-patient is on Marinol, he is being seen by nutritional services Total clinical time spent by myself addressing the patient's medical issues, reviewing all of his data, and collaborating with patient's care team: 25 minutes Charges/Coding Visit Charges Inpatient E&M: 94946 Subs Hosp L1
[2023-02-20] MEDS: MELATONIN 3 MG TABLET PO (20:37)
[2023-02-20] MEDS: Atorvastatin Calcium 40 MG Tablet PO (20:37)
[2023-02-21] VITALS (26 sets, daily range): BP systolic 74–148; BP diastolic 40–104; PULSE 74–100; RESP 12–25; TEMP 36.3–37; O2SAT 88–99
[2023-02-21] MEDS: 0.9% Normal Saline (500mL Bag) 500 ML 999 ML IV (02:20)
--- NOTE | 2023-02-21 02:21 | PCM.HOSP.N ---
Hospitalist Note Patient with hypotension, will administer small IVF bolus given presentation history, repeat BP afterwards and may further administer IVFs if necessary.
[2023-02-21] MEDS: Ipratropium/Albuterol Sulfate 3 ML AMPUL.NEB INHALATION ×3 (07:22→19:25)
[2023-02-21] MEDS: Furosemide 40 MG Tablet PO (08:27)
[2023-02-21] MEDS: guaiFENesin 1,200 MG Tablet 1200 MG PO (08:27)
[2023-02-21] MEDS: APIXABAN 2.5 MG TABLET (WCH) PO ×2 (08:27→21:26)
[2023-02-21] MEDS: dexAMETHasone 4 MG Tablet 6 MG PO (08:27)
[2023-02-21] MEDS: Losartan Potassium 100 MG Tablet PO (08:27)
[2023-02-21] MEDS: Cholecalciferol (VIT D3) 25 MCG TABLET (1,000 UNITS) PO (08:28)
[2023-02-21] MEDS: Aspirin 81 MG TAB.CHEW PO (08:28)
[2023-02-21] MEDS: Pantoprazole Sodium 40 MG Tablet PO ×2 (08:28→21:26)
[2023-02-21] MEDS: Ensure Plus High Protein 120 ML LIQUID PO (08:36)
--- NOTE | 2023-02-21 10:19 | CASEMGMT ---
Addendum entered by Misty Castillo 02/21/23 14:45: Emma will review patient's chart once PT/OT sees patient. Emma will notify Friday SW whether or not TCU can take patient. Misty PRYOR Original Note: Per physician patient is agreeable to go somewhere for rehab. SW met with patient and his family. Introduced self and role at [facility]. Patient confirmed he is agreeable. SW provided patient with a list of longterm facility providers including quality and resource use data and consistent with patient?s preferred geographic region, medical needs, and insurance network were provided from the [facility] Guide. First choice is [facility] and second choice is [facility]. SW made a referral to TCU. Awaiting PT/OT from today. Misty PRYOR
[2023-02-21] MEDS: Menthol/Lanolin/Calamine/Znox 113 GM Tube 1 APPLIC TOPICAL ×2 (12:23→21:27)
[2023-02-21] MEDS: 0.9% Normal Saline (250mL Bag) 250 ML IV (13:54)
--- NOTE | 2023-02-21 17:10 | PCM.PN.HOSP ---
Reason for Visit Reason for Visit: Diagnoses Elevated white blood cell count, unspecified (02/12/23) Unspecified severe protein-calorie malnutrition (02/12/23) Hypo-osmolality and hyponatremia (02/12/23) Pneumonia, unspecified organism (02/12/23) Chronic obstructive pulmonary disease with (acute) exacerbation (02/12/23) Acute and chronic respiratory failure with hypoxia (02/12/23) COVID-19 (02/12/23) Subjective Subjective Patient was seen and examined today, he is currently on nasal cannula oxygen at 3 L, I talked to him briefly about going to an extended care facility for short-term rehab services, he is not against this. Objective Data Objective Data Vital Signs: Vital Signs Temp Pulse Resp BP Pulse Ox O2 Del Method O2 Flow Rate 98 F 86 25 H 88/51 L 93 Nasal Cannula 3 02/21/23 11:00 02/21/23 11:30 02/21/23 11:30 02/21/23 11:00 02/21/23 11:30 02/21/23 11:30 02/21/23 11:30 FiO2 40 02/21/23 04:12 Oxygen Flow Rate (L/min) [ 8 AMBULATING with Oxygen #2] Oxygen Flow Rate (L/min) [ 4 AMBULATING with Oxygen #1] Oxygen Flow Rate (L/min) [At 4 REST with Oxygen] Oxygen Flow Rate (L/min) 3 Oxygen Delivery Method Nasal Cannula Weight: 43.1 kg Body Mass Index (BMI) 16.8 Intake & Output: Intake and Output for Last 24 Hours 02/19/23 02/20/23 02/21/23 23:59 23:59 23:59 Intake Total 170 / 240 850 / 850 750 / 750 Output Total 100 / 700 1500 / 1500 500 / 500 Balance 70 / -460 -650 / -650 250 / 250 Medical Nutrition Assessment Dietitian: Malnutrition Criteria Met Start: 02/17/23 15:33 Freq: Status: Active Protocol: Document 02/17/23 15:33 RMA (Rec: 02/17/23 15:33 RMA [id number]) Nutrition Malnutrition Evidence of Malnutrition Exists Yes Malnutrition (severe): Chronic Evidenced By Suboptimal Energy Intake ( Severe),Weight Loss (Severe) Clinical Problem Chronic Disease or Condition Related Malnutrition Etiology Severe protein-calorie malnutrition in the context of chronic disease/debility related to inadequate oral intake and alcohol abuse Signs/Symptoms as evidenced by BMI 16.8, 10% weight loss in less than 6 months, PO meeting less than 50% estimated nutrition needs for past 4-6 months Status Active Problem Unintended Weight Loss Etiology related to predicted inadequate oral intake Signs/Symptoms as evidenced 18.8lbs (16.5%) weight loss in 6.5 months Status Active Problem Recommendation Dietitian Recommendations/Changes Will liberalize diet to regular given signs/symptoms of malnutrition. Will continue ensure plus high protein TID w/ medpass. Will add magic cup BID w/ lunch and dinner for tolerance . Lab / Micro Data 02/18/23 06:11 02/18/23 06:11 Micro: Microbiology 02/12/23 18:10 Urine, Clean Catch Legionella Antigen - Final 02/12/23 18:10 Urine, Clean Catch Streptococcus pneumoniae Antigen (M - Final 02/12/23 15:35 Nasal Secretion SARS-CoV-2 Antigen (Rapid) - Final SARS-CoV-2 (COVID 19) Physical Exam Narrative alert, oriented x3 and no apparent distress Constitutional Narrative: Patient appears older than his stated age, he appears cachectic General Appearance: cooperative, well kempt and well developed Orientation / Consciousness: awake, oriented to person, oriented to place and oriented to time HEENT normocephalic, head/scalp atraumatic and moist oral mucous membranes Eyes PERRL, EOMs intact bilaterally and conjunctivae normal Neck supple, no JVD, thyroid normal and no carotid bruits General: trachea midline Resp normal respiratory effort, no retractions and no use of accessory muscles Resp Narrative: Breath sounds are diminished bilaterally Auscultation: Negative for rales, rhonchi or wheezes Cardio regular rate, regular rhythm, S1 normal heart sound, S2 normal heart sound, no murmurs, no rub and no gallops GI normal to inspection, nondistended, normoactive bowel sounds, soft to palpation, non-tender and non-distended Extremity no clubbing, cyanosis or edema Skin no rashes or lesions noted General Skin Exam: no breakdown Neuro CN's II-XII intact bilaterally, moves all extremities, no focal motor deficits and no sensory deficits noted Sensorium / Orientation: awake, alert, oriented to person and oriented to place Speech: speech normal Psych affect normal Assessment & Plan Assessment/Plan (1) COVID-19 virus infection: PLAN: Plan 1. Acute on chronic hypoxic respiratory failure-secondary to COVID-19 infection on superimposed severe COPD-patient is now on Airvo, prognosis is guarded at this time, will continue to provide supportive care, aerosol treatments, oral corticosteroids, patient remains on oral diuretics, due to some hypotension today, I have elected to hold his diuretics, he was given a small amount of IV fluid. #2 COVID-19 infection-patient is receiving Decadron, it is unclear how long he has had the symptoms but he tells this examiner that he has been symptomatic for at least 10 days. Patient has had some of his COVID immunizations. #3 severe COPD-complicates care, medical course, recovery, and prognosis #4 severe protein and caloric malnutrition-as evidenced by BMI of 16.8, 10% weight loss and less than 6 months, p.o. intake meeting less than 50% of nutritional requirements for the last 4 to 6 months-patient is on a general diet with energy and protein modification, and Ensure Plus high-protein is being given to the patient along with Magic cup dessert-patient is on Marinol, he is being seen by nutritional services Total clinical time spent by myself addressing the patient's medical issues, reviewing all of his data, and collaborating with patient's care team: 25 minutes Charges/Coding Visit Charges Inpatient E&M: [id number] [facility] Hosp L1
[2023-02-21] MEDS: Dronabinol 2.5 MG Capsule PO (17:21)
[2023-02-21] MEDS: Atorvastatin Calcium 40 MG Tablet PO (21:26)
[2023-02-22] VITALS (12 sets, daily range): BP systolic 95–126; BP diastolic 56–78; PULSE 78–103; RESP 14–28; TEMP 36.6–36.8; O2SAT 90–96
[2023-02-22] MEDS: Menthol/Lanolin/Calamine/Znox 113 GM Tube 1 APPLIC TOPICAL ×3 (05:46→21:34)
[2023-02-22] MEDS: Ensure Plus High Protein 120 ML LIQUID PO ×3 (09:23→16:47)
[2023-02-22] MEDS: Pantoprazole Sodium 40 MG Tablet PO ×2 (09:24→21:33)
[2023-02-22] MEDS: APIXABAN 2.5 MG TABLET (WCH) PO ×2 (09:24→21:33)
[2023-02-22] MEDS: Aspirin 81 MG TAB.CHEW PO (09:24)
[2023-02-22] MEDS: guaiFENesin 1,200 MG Tablet 1200 MG PO (09:24)
[2023-02-22] MEDS: dexAMETHasone 4 MG Tablet 6 MG PO (09:26)
[2023-02-22] MEDS: Furosemide 40 MG Tablet PO (09:26)
[2023-02-22] MEDS: Cholecalciferol (VIT D3) 25 MCG TABLET (1,000 UNITS) PO (09:27)
[2023-02-22] MEDS: Ipratropium/Albuterol Sulfate 3 ML AMPUL.NEB INHALATION ×2 (11:14→19:12)
--- NOTE | 2023-02-22 11:19 | CPS ---
Pt kept taking aerosol out of mouth, using a mask was offered and pt declined, would only finish 1/2 of medicine. Son in room, tried to encourage him to finish but pt said no.
--- NOTE | 2023-02-22 14:31 | CASEMGMT ---
Addendum entered by Pratima Womack 02/22/23 16:00: Social Work SW spoke w/PT, pt needs re-evaluated and will be seen on Friday. SW to follow up on Friday. FARSHAD Terrell Addendum entered by Pratima Womack 02/22/23 14:46: Social Work Social Work spoke w/pt, as per PT/OT pt has been declining to participate. SW spoke w/pt in room, son present. SW explained to pt that SW spoke w/PT and OT and he has not been participated in therapy. SW explained to pt that we had been talking about pt going somewhere for rehab. Pt seems to want to go home now. SW explained to pt that whether or not he wants to go home, he should participate in therapy. SW explained that this will help determine whether or not he can go home. Son in agreement with this. Pt is agreeing to participate at this time. SW let therapy know, they will see him today or tomorrow as time allows. Once pt has therapy, SW can follow up w/pt to continue process with referral to TCU if appropriate and pt still agreeable. FARSHAD Terrell Original Note: Social Work SW spoke w/PT, they will try to see pt today, and will also let OT know to see pt today. FARSHAD Terrell
[2023-02-22] MEDS: Dronabinol 2.5 MG Capsule PO (16:48)
--- NOTE | 2023-02-22 17:39 | PCM.PN.HOSP ---
Reason for Visit Reason for Visit: Diagnoses Elevated white blood cell count, unspecified (02/12/23) Unspecified severe protein-calorie malnutrition (02/12/23) Hypo-osmolality and hyponatremia (02/12/23) Pneumonia, unspecified organism (02/12/23) Chronic obstructive pulmonary disease with (acute) exacerbation (02/12/23) Acute and chronic respiratory failure with hypoxia (02/12/23) COVID-19 (02/12/23) Subjective Subjective Patient was seen and examined today, he remains on low-flow nasal cannula oxygen and appears comfortable at rest. Objective Data Objective Data Vital Signs: Vital Signs Temp Pulse Resp BP Pulse Ox O2 Del Method O2 Flow Rate 98 F 96 18 114/68 96 Nasal Cannula 2 02/22/23 15:18 02/22/23 15:18 02/22/23 15:18 02/22/23 15:18 02/22/23 15:18 02/22/23 15:24 02/22/23 15:24 FiO2 40 02/21/23 04:12 Oxygen Flow Rate (L/min) [ 8 AMBULATING with Oxygen #2] Oxygen Flow Rate (L/min) [ 4 AMBULATING with Oxygen #1] Oxygen Flow Rate (L/min) [At 4 REST with Oxygen] Oxygen Flow Rate (L/min) 2 Oxygen Delivery Method Nasal Cannula Weight: 43.1 kg Body Mass Index (BMI) 16.8 Intake & Output: Intake and Output for Last 24 Hours 02/20/23 02/21/23 02/22/23 23:59 23:59 23:59 Intake Total 850 / 850 750 / 750 240 / 240 Output Total 1500 / 1500 800 / 800 300 / 300 Balance -650 / -650 -50 / -50 -60 / -60 Medical Nutrition Assessment Dietitian: Malnutrition Criteria Met Start: 02/17/23 15:33 Freq: Status: Active Protocol: Document 02/17/23 15:33 RMA (Rec: 02/17/23 15:33 RMA [id number]) Nutrition Malnutrition Evidence of Malnutrition Exists Yes Malnutrition (severe): Chronic Evidenced By Suboptimal Energy Intake ( Severe),Weight Loss (Severe) Clinical Problem Chronic Disease or Condition Related Malnutrition Etiology Severe protein-calorie malnutrition in the context of chronic disease/debility related to inadequate oral intake and alcohol abuse Signs/Symptoms as evidenced by BMI 16.8, 10% weight loss in less than 6 months, PO meeting less than 50% estimated nutrition needs for past 4-6 months Status Active Problem Unintended Weight Loss Etiology related to predicted inadequate oral intake Signs/Symptoms as evidenced 18.8lbs (16.5%) weight loss in 6.5 months Status Active Problem Recommendation Dietitian Recommendations/Changes Will liberalize diet to regular given signs/symptoms of malnutrition. Will continue ensure plus high protein TID w/ medpass. Will add magic cup BID w/ lunch and dinner for tolerance . Lab / Micro Data 02/18/23 06:11 02/18/23 06:11 Micro: Microbiology 02/12/23 18:10 Urine, Clean Catch Legionella Antigen - Final 02/12/23 18:10 Urine, Clean Catch Streptococcus pneumoniae Antigen (M - Final 02/12/23 15:35 Nasal Secretion SARS-CoV-2 Antigen (Rapid) - Final SARS-CoV-2 (COVID 19) Physical Exam Narrative alert, oriented x3 and no apparent distress Constitutional Narrative: Patient appears older than his stated age, he appears cachectic General Appearance: cooperative, well kempt and well developed Orientation / Consciousness: awake, oriented to person, oriented to place and oriented to time HEENT normocephalic, head/scalp atraumatic and moist oral mucous membranes Eyes PERRL, EOMs intact bilaterally and conjunctivae normal Neck supple, no JVD, thyroid normal and no carotid bruits General: trachea midline Resp normal respiratory effort, no retractions and no use of accessory muscles Resp Narrative: Breath sounds are diminished bilaterally Auscultation: Negative for rales, rhonchi or wheezes Cardio regular rate, regular rhythm, S1 normal heart sound, S2 normal heart sound, no murmurs, no rub and no gallops GI normal to inspection, nondistended, normoactive bowel sounds, soft to palpation, non-tender and non-distended Extremity no clubbing, cyanosis or edema Skin no rashes or lesions noted General Skin Exam: no breakdown Neuro CN's II-XII intact bilaterally, moves all extremities, no focal motor deficits and no sensory deficits noted Sensorium / Orientation: awake, alert, oriented to person and oriented to place Speech: speech normal Psych affect normal Assessment & Plan Assessment/Plan (1) COVID-19 virus infection: PLAN: Plan 1. Acute on chronic hypoxic respiratory failure-secondary to COVID-19 infection on superimposed severe COPD-patient is currently on low-flow nasal cannula oxygen, he appears comfortable at this time, I have elected to keep the patient on a maintenance dose of Lasix at this time, I will repeat a BMP in the morning on him. #2 COVID-19 infection-patient is receiving Decadron, it is unclear how long he has had the symptoms but he tells this examiner that he has been symptomatic for at least 10 days. Patient has had some of his COVID immunizations. #3 severe COPD-complicates care, medical course, recovery, and prognosis #4 severe protein and caloric malnutrition-as evidenced by BMI of 16.8, 10% weight loss and less than 6 months, p.o. intake meeting less than 50% of nutritional requirements for the last 4 to 6 months-patient is on a general diet with energy and protein modification, and Ensure Plus high-protein is being given to the patient along with Magic cup dessert-patient is on Marinol, he is being seen by nutritional services Total clinical time spent by myself addressing the patient's medical issues, reviewing all of his data, and collaborating with patient's care team: 25 minutes Charges/Coding Visit Charges Inpatient E&M: [id number] Subs Hosp L1
[2023-02-22] MEDS: Atorvastatin Calcium 40 MG Tablet PO (21:33)
[2023-02-23] VITALS (11 sets, daily range): BP systolic 115–133; BP diastolic 61–76; PULSE 76–103; RESP 14–28; TEMP 36.4–36.9; O2SAT 2–94
[2023-02-23] MEDS: Dronabinol 2.5 MG Capsule PO ×2 (05:43→16:29)
[2023-02-23] MEDS: Menthol/Lanolin/Calamine/Znox 113 GM Tube 1 APPLIC TOPICAL ×2 (05:43→21:27)
[2023-02-23 07:42] LABS: Anion Gap 6 (5-15); BUN 37 mg/dL (7-18); BUN/Creat Ratio 46.2 RATIO (10-20); Chloride 97 mmol/L (98-107); EST Glomerular Filtration Rate 101 mL/min (>60); Est Glom Filt Rate - Afr Amer 122 mL/min (>60); Estimated Creatinine Clearance 50.13 ml/min; Glucose 98 mg/dL (74-106); Potassium 3.3 mmol/L (3.5-5.1); Sodium Level 132 mmol/L (136-145)
[2023-02-23] MEDS: Losartan Potassium 100 MG Tablet PO (08:50)
[2023-02-23] MEDS: Aspirin 81 MG TAB.CHEW PO (08:50)
[2023-02-23] MEDS: guaiFENesin 1,200 MG Tablet 1200 MG PO (08:50)
[2023-02-23] MEDS: Pantoprazole Sodium 40 MG Tablet PO ×2 (08:51→21:26)
[2023-02-23] MEDS: Potassium Chloride Oral Tablet 20 MEQ PO (08:51)
[2023-02-23] MEDS: Cholecalciferol (VIT D3) 25 MCG TABLET (1,000 UNITS) PO (08:52)
[2023-02-23] MEDS: Furosemide 40 MG Tablet PO (08:54)
[2023-02-23] MEDS: APIXABAN 2.5 MG TABLET (WCH) PO ×2 (08:54→21:26)
[2023-02-23] MEDS: Ensure Plus High Protein 120 ML LIQUID PO ×2 (08:56→16:21)
--- NOTE | 2023-02-23 16:13 | PN.HOSP_ITS ---
Reason for Visit Reason for Visit: Diagnoses Elevated white blood cell count, unspecified (02/12/23) Unspecified severe protein-calorie malnutrition (02/12/23) Hypo-osmolality and hyponatremia (02/12/23) Pneumonia, unspecified organism (02/12/23) Chronic obstructive pulmonary disease with (acute) exacerbation (02/12/23) Acute and chronic respiratory failure with hypoxia (02/12/23) COVID-19 (02/12/23) Subjective Subjective Patient was seen and examined today, he has been refusing to cooperate with physical therapy, I had a discussion with him about this and asked for physical therapy to come back into see him today. Patient understands that he must cooperate with physical therapy to be accepted at a penitentiary facility. Patient is currently on 2 L of oxygen via nasal cannula Objective Data Objective Data Vital Signs: Vital Signs Temp Pulse Resp BP Pulse Ox O2 Del Method O2 Flow Rate 98 F 85 14 125/62 H 94 Nasal Cannula 2 02/23/23 14:10 02/23/23 14:10 02/23/23 14:10 02/23/23 14:10 02/23/23 11:50 02/23/23 14:10 02/23/23 14:10 FiO2 40 02/21/23 04:12 Oxygen Flow Rate (L/min) [ 8 AMBULATING with Oxygen #2] Oxygen Flow Rate (L/min) [ 4 AMBULATING with Oxygen #1] Oxygen Flow Rate (L/min) [At 4 REST with Oxygen] Oxygen Flow Rate (L/min) 2 Oxygen Delivery Method Nasal Cannula Weight: 43.1 kg Body Mass Index (BMI) 16.8 Intake & Output: Intake and Output for Last 24 Hours 02/21/23 02/22/23 02/23/23 23:59 23:59 23:59 Intake Total 750 / 750 480 / 580 500 / 500 Output Total 800 / 800 450 / 550 925 / 925 Balance -50 / -50 -425 / -425 Medical Nutrition Assessment Dietitian: Malnutrition Criteria Met Start: 02/17/23 15:33 Freq: Status: Active Protocol: Document 02/17/23 15:33 RMA (Rec: 02/17/23 15:33 RMA [id number]) Nutrition Malnutrition Evidence of Malnutrition Exists Yes Malnutrition (severe): Chronic Evidenced By Suboptimal Energy Intake ( Severe),Weight Loss (Severe) Clinical Problem Chronic Disease or Condition Related Malnutrition Etiology Severe protein-calorie malnutrition in the context of chronic disease/debility related to inadequate oral intake and alcohol abuse Signs/Symptoms as evidenced by BMI 16.8, 10% weight loss in less than 6 months, PO meeting less than 50% estimated nutrition needs for past 4-6 months Status Active Problem Unintended Weight Loss Etiology related to predicted inadequate oral intake Signs/Symptoms as evidenced 18.8lbs (16.5%) weight loss in 6.5 months Status Active Problem Recommendation Dietitian Recommendations/Changes Will liberalize diet to regular given signs/symptoms of malnutrition. Will continue ensure plus high protein TID w/ medpass. Will add magic cup BID w/ lunch and dinner for tolerance . Lab / Micro Data 02/18/23 06:11 02/23/23 05:24 Labs: Laboratory Results - last 24 hr 02/23/23 05:24: Sodium 132 L, Potassium 3.3 L, Chloride 97 L, Carbon Dioxide 29.0, Anion Gap 6, BUN 37 H, Creatinine 0.80, Estim Creat Clear Calc 50.13, Est GFR (MDRD) Af Amer 122, Est GFR (MDRD) Non-Af 101, BUN/Creatinine Ratio 46.2 H, Glucose 98, Calcium 8.0 L Micro: Microbiology 02/12/23 18:10 Urine, Clean Catch Legionella Antigen - Final 02/12/23 18:10 Urine, Clean Catch Streptococcus pneumoniae Antigen (M - Final 02/12/23 15:35 Nasal Secretion SARS-CoV-2 Antigen (Rapid) - Final SARS-CoV-2 (COVID 19) Physical Exam Narrative alert, oriented x3 and no apparent distress Constitutional Narrative: Patient appears older than his stated age, he appears cachectic General Appearance: cooperative, well kempt and well developed Orientation / Consciousness: awake, oriented to person, oriented to place and oriented to time HEENT normocephalic, head/scalp atraumatic and moist oral mucous membranes Eyes PERRL, EOMs intact bilaterally and conjunctivae normal Neck supple, no JVD, thyroid normal and no carotid bruits General: trachea midline Resp normal respiratory effort, no retractions and no use of accessory muscles Resp Narrative: Breath sounds are diminished bilaterally Auscultation: Negative for rales, rhonchi or wheezes Cardio regular rate, regular rhythm, S1 normal heart sound, S2 normal heart sound, no murmurs, no rub and no gallops GI normal to inspection, nondistended, normoactive bowel sounds, soft to palpation, non-tender and non-distended Extremity no clubbing, cyanosis or edema Skin no rashes or lesions noted General Skin Exam: no breakdown Neuro CN's II-XII intact bilaterally, moves all extremities, no focal motor deficits and no sensory deficits noted Sensorium / Orientation: awake, alert, oriented to person and oriented to place Speech: speech normal Psych affect normal Assessment & Plan Assessment/Plan (1) COVID-19 virus infection: PLAN: Plan 1. Acute on chronic hypoxic respiratory failure-secondary to COVID-19 infection on superimposed severe COPD-patient is currently on low-flow nasal cannula oxygen, he appears comfortable at this time, I have elected to keep the patient on a maintenance dose of Lasix at this time #2 COVID-19 infection-patient has completed his course of Decadron #3 severe COPD-complicates care, medical course, recovery, and prognosis #4 severe protein and caloric malnutrition-as evidenced by BMI of 16.8, 10% weight loss and less than 6 months, p.o. intake meeting less than 50% of nutritional requirements for the last 4 to 6 months-patient is on a general diet with energy and protein modification, and Ensure Plus high-protein is being given to the patient along with Magic cup dessert-patient is on Marinol, he is being seen by nutritional services #5 acute debility-patient will need temporary placement in a penitentiary facility, I have asked him to cooperate with PT and OT and he understands this. Total clinical time spent by myself addressing the patient's medical issues, reviewing all of his data, and collaborating with patient's care team: 25 minutes Charges/Coding Visit Charges Inpatient E&M: 47328 Subs Hosp L1
[2023-02-23] MEDS: Senna/Docusate Sodium 1 Tablet 2 TABLET PO (21:26)
[2023-02-23] MEDS: Atorvastatin Calcium 40 MG Tablet PO (21:26)
[2023-02-24] VITALS (9 sets, daily range): BP systolic 119–131; BP diastolic 66–78; PULSE 81–116; RESP 14–24; TEMP 36.3–37.1; O2SAT 2–94
[2023-02-24] MEDS: Menthol/Lanolin/Calamine/Znox 113 GM Tube 1 APPLIC TOPICAL ×2 (05:53→21:04)
[2023-02-24] MEDS: Dronabinol 2.5 MG Capsule PO (08:53)
[2023-02-24] MEDS: Losartan Potassium 100 MG Tablet PO (08:54)
[2023-02-24] MEDS: Pantoprazole Sodium 40 MG Tablet PO ×2 (08:54→21:04)
[2023-02-24] MEDS: Aspirin 81 MG TAB.CHEW PO (08:54)
[2023-02-24] MEDS: APIXABAN 2.5 MG TABLET (WCH) PO ×2 (08:54→21:04)
[2023-02-24] MEDS: Cholecalciferol (VIT D3) 25 MCG TABLET (1,000 UNITS) PO (08:54)
[2023-02-24] MEDS: Furosemide 40 MG Tablet PO (08:54)
[2023-02-24] MEDS: guaiFENesin 1,200 MG Tablet 1200 MG PO (08:55)
[2023-02-24] MEDS: Potassium Chloride Oral Tablet 20 MEQ PO (08:57)
[2023-02-24] MEDS: Ensure Plus High Protein 120 ML LIQUID PO (08:59)
--- NOTE | 2023-02-24 10:09 | CASEMGMT ---
Discharge Planning Patient was declined by TCU. Referral sent to [facility] via [facility]. Alma Milian, Discharge Planning Asst.
--- NOTE | 2023-02-24 12:41 | CASEMGMT ---
Discharge Planning Patient has been accepted by [facility]. SW updated. Alma Milian, Discharge Planning Asst.
--- NOTE | 2023-02-24 13:04 | CASEMGMT ---
RIZWANA notified patient, his son, and daughter that [facility] TCU is not willing to take patient due to patient's refusing therapy. RIZWANA did tell them that [facility] accepted patient. Plan: d/c to [facility] under skilled level of care. Misty PRYOR
--- NOTE | 2023-02-24 13:32 | CASEMGMT ---
Patient's family is now questioning whether or not to send patient to the half-way as they do not feel patient is going to cooperate with therapy etc. SW explained they could try and see how it goes. Patient's one daughter is afraid he will get even more depressed being at a half-way. Family asked if they could talk to the physician. RIZWANA let them know SW will send the physician a message. RIZWANA notified Dr Elizabeth. Misty Castillo MAINTENA[employer]CE [employer]PER[employer]
--- NOTE | 2023-02-24 14:31 | CASEMGMT ---
RN ABBEY updated that patient and family would like patient to discharge home. RN ABBEY spoke to family and would like [facility] for at discharge. Daughters also requesting hospital bed and BSC from [facility]. Patient voiced no further questions or concerns at this time. KIKO POTTER called and made referral to [facility]. Scripts received for hospital bed and BSC and sent to [facility] as requesting. CM will continue to follow this patient and plan for a safe discharge.
--- NOTE | 2023-02-24 16:53 | PN.HOSP_ITS ---
Reason for Visit Reason for Visit: Diagnoses Elevated white blood cell count, unspecified (02/12/23) Unspecified severe protein-calorie malnutrition (02/12/23) Hypo-osmolality and hyponatremia (02/12/23) Pneumonia, unspecified organism (02/12/23) Chronic obstructive pulmonary disease with (acute) exacerbation (02/12/23) Acute and chronic respiratory failure with hypoxia (02/12/23) COVID-19 (02/12/23) Subjective Subjective Patient was seen and examined today, I had a meeting with family members in his room, patient has been refusing physical therapy and TCU here would not take the patient for rehab services. Patient tells me he wants to go home rather than go to a detention, he has consented to palliative care participation when he is discharged, family states they will need today to get the house ready for the patient to come home and he will need an electric hospital bed for positioning and elevation of of his head due to COPD. Objective Data Objective Data Vital Signs: Vital Signs Temp Pulse Resp BP Pulse Ox O2 Del Method O2 Flow Rate 98 F 89 16 121/72 H 91 Nasal Cannula 2 02/24/23 13:21 02/24/23 13:21 02/24/23 13:21 02/24/23 13:21 02/24/23 08:52 02/24/23 13:21 02/24/23 13:21 FiO2 40 02/21/23 04:12 Oxygen Flow Rate (L/min) [ 8 AMBULATING with Oxygen #2] Oxygen Flow Rate (L/min) [ 4 AMBULATING with Oxygen #1] Oxygen Flow Rate (L/min) [At 4 REST with Oxygen] Oxygen Flow Rate (L/min) 2 Oxygen Delivery Method Nasal Cannula Weight: 43.1 kg Body Mass Index (BMI) 16.8 Intake & Output: Intake and Output for Last 24 Hours 02/22/23 02/23/23 02/24/23 23:59 23:59 23:59 Intake Total 480 / 580 900 / 900 700 / 700 Output Total 450 / 550 1325 / 1325 650 / 650 Balance -425 / -425 50 / 50 Medical Nutrition Assessment Dietitian: Malnutrition Criteria Met Start: 02/17/23 15:33 Freq: Status: Active Protocol: Document 02/17/23 15:33 RMA (Rec: 02/17/23 15:33 [facility] [id number]) Nutrition Malnutrition Evidence of Malnutrition Exists Yes Malnutrition (severe): Chronic Evidenced By Suboptimal Energy Intake ( Severe),Weight Loss (Severe) Clinical Problem Chronic Disease or Condition Related Malnutrition Etiology Severe protein-calorie malnutrition in the context of chronic disease/debility related to inadequate oral intake and alcohol abuse Signs/Symptoms as evidenced by BMI 16.8, 10% weight loss in less than 6 months, PO meeting less than 50% estimated nutrition needs for past 4-6 months Status Active Problem Unintended Weight Loss Etiology related to predicted inadequate oral intake Signs/Symptoms as evidenced 18.8lbs (16.5%) weight loss in 6.5 months Status Active Problem Recommendation Dietitian Recommendations/Changes Will liberalize diet to regular given signs/symptoms of malnutrition. Will continue ensure plus high protein TID w/ medpass. Will add magic cup BID w/ lunch and dinner for tolerance . Lab / Micro Data 02/18/23 06:11 02/23/23 05:24 Micro: Microbiology 02/12/23 18:10 Urine, Clean Catch Legionella Antigen - Final 02/12/23 18:10 Urine, Clean Catch Streptococcus pneumoniae Antigen (M - Final 02/12/23 15:35 Nasal Secretion SARS-CoV-2 Antigen (Rapid) - Final SARS-CoV-2 (COVID 19) Physical Exam Narrative alert, oriented x3 and no apparent distress Constitutional Narrative: Patient appears older than his stated age, he appears cachectic General Appearance: cooperative, well kempt and well developed Orientation / Consciousness: awake, oriented to person, oriented to place and oriented to time HEENT normocephalic, head/scalp atraumatic and moist oral mucous membranes Eyes PERRL, EOMs intact bilaterally and conjunctivae normal Neck supple, no JVD, thyroid normal and no carotid bruits General: trachea midline Resp normal respiratory effort, no retractions and no use of accessory muscles Resp Narrative: Breath sounds are diminished bilaterally Auscultation: Negative for rales, rhonchi or wheezes Cardio regular rate, regular rhythm, S1 normal heart sound, S2 normal heart sound, no m urmurs, no rub and no gallops GI normal to inspection, nondistended, normoactive bowel sounds, soft to palpation, non-tender and non-distended Extremity no clubbing, cyanosis or edema Skin no rashes or lesions noted General Skin Exam: no breakdown Neuro CN's II-XII intact bilaterally, moves all extremities, no focal motor deficits and no sensory deficits noted Sensorium / Orientation: awake, alert, oriented to person and oriented to place Speech: speech normal Psych Patient has a flat affect Assessment & Plan Assessment/Plan (1) COVID-19 virus infection: PLAN: Plan 1. Acute on chronic hypoxic respiratory failure-secondary to COVID-19 infection on superimposed severe COPD-patient is currently on low-flow nasal cannula oxygen, he appears comfortable at this time, I have elected to keep the patient on a maintenance dose of Lasix at this time #2 COVID-19 infection-patient has completed his course of Decadron #3 severe COPD-complicates care, medical course, recovery, and prognosis #4 severe protein and caloric malnutrition-as evidenced by BMI of 16.8, 10% w eight loss and less than 6 months, p.o. intake meeting less than 50% of nutritional requirements for the last 4 to 6 months-patient is on a general diet with energy and protein modification, and Ensure Plus high-protein is being given to the patient along with Magic cup dessert-patient is on Marinol, he is being seen by nutritional services #5 acute debility-patient has decided that he will not participate in physical therapy and that he wants to go home at the time of discharge from the hospital, again arrangements were made for an electric hospital bed for positioning of his head due to COPD. Total clinical time spent by myself addressing the patient's medical issues, reviewing all of his data, and collaborating with patient's care team: 35 minutes Charges/Coding Visit Charges Inpatient E&M: 97222 Subs Hosp L2
[2023-02-24] MEDS: Atorvastatin Calcium 40 MG Tablet PO (21:04)
[2023-02-25] VITALS (17 sets, daily range): BP systolic 67–137; BP diastolic 45–76; PULSE 79–95; RESP 14–24; TEMP 36.2–36.5; O2SAT 87–97
[2023-02-25] MEDS: Menthol/Lanolin/Calamine/Znox 113 GM Tube 1 APPLIC TOPICAL (06:25)
[2023-02-25] MEDS: Dronabinol 2.5 MG Capsule PO ×2 (06:25→15:33)
[2023-02-25] MEDS: 0.9% Saline Lock 10 ML Syringe IV (06:25)
[2023-02-25] MEDS: Ensure Plus High Protein 120 ML LIQUID PO (08:57)
[2023-02-25] MEDS: Cholecalciferol (VIT D3) 25 MCG TABLET (1,000 UNITS) PO (08:59)
[2023-02-25] MEDS: Losartan Potassium 100 MG Tablet PO (08:59)
[2023-02-25] MEDS: APIXABAN 2.5 MG TABLET (WCH) PO (08:59)
[2023-02-25] MEDS: Pantoprazole Sodium 40 MG Tablet PO (08:59)
[2023-02-25] MEDS: Furosemide 40 MG Tablet PO (08:59)
[2023-02-25] MEDS: Aspirin 81 MG TAB.CHEW PO (09:00)
--- NOTE | 2023-02-25 11:17 | CASEMGMT ---
Discharge Planning W updated via [facility] that patient is returning home. Alma Milian, Discharge Planning Asst.
--- NOTE | 2023-02-25 11:56 | DCINST_ITS ---
Discharge Instructions Diet Discharge Diet: No restrictions Activity Discharge Activity: Return to Normal Activity Weight Bearing Status: Full weight bearing Follow Up Care Test Results: Test results from this visit will be discussed in further detail at your follow- up appointment, if applicable. Discharge Plan Admission Admit Date/Time: 02/12/23 15:32 Primary Reason for Your Visit: COVID-19, respiratory failure Attending Provider: Edward Elizabeth Primary Care Provider: Dom Chaidez Consulting Providers: Temitope Son; Sukhi Alfredo Discharge Orders/Prescriptions Prescriptions: New furosemide 40 mg Tablet 40 mg PO DAILY Qty: 30 0RF atorvastatin 40 mg Tablet 40 mg PO QHS Qty: 30 0RF ipratropium-albuterol 0.5 mg-3 mg(2.5 mg base)/3 mL Solution For Nebulization 3 ml inhalation 4XD Qty: 0 0RF dronabinol 2.5 mg Capsule 2.5 mg PO BIDAC Qty: 60 0RF aspirin 81 mg Tablet,Chewable 81 mg PO BREAKFAST Qty: 0 0RF losartan 100 mg Tablet 100 mg PO DAILY Qty: 30 0RF potassium chloride [Klor-Con M20] 20 mEq Tablet,Er Particles/Crystals 20 meq PO BIDCM Qty: 60 0RF clopidogrel [Plavix] 75 mg tablet 75 mg PO DAILY Qty: 30 0RF Continued pantoprazole 40 mg Tablet,Delayed Release (Dr/Ec) 40 mg PO BID 30 Days Qty: 60 0RF cholecalciferol (vitamin D3) [Vitamin D3] 25 mcg (1,000 unit) capsule 25 mcg PO DAILY Discontinued glucose 4 GM tablet,chewable 4 g PO DAILY PRN (Reason: BLOOD SUGARS) valsartan-hydrochlorothiazide 320-12.5 mg tablet 1 tab PO DAILY No Action rosuvastatin 20 mg tablet 20 mg PO DAILY Referrals / Follow Up: Dom Chaidez MD [Primary Care Provider] - Within 2 Weeks Disposition Disposition (needs filled in before D/C Order can be placed): Home Health Service
--- NOTE | 2023-02-25 12:27 | DS.PCM_ITS ---
Providers Date of Admission: 02/12/23 Date of Discharge: 02/25/23 Primary Care Physician: Dr. Dom Chaidez MD Reason For Visit: PNEUMONIA/COVID 19 Diagnosis Discharge Diagnosis (1) COVID-19 virus infection: Status: Acute Code(s): U07.1 - COVID-19 Plan 1. Acute on chronic hypoxic respiratory failure-secondary to COVID-19 infection on superimposed severe COPD-patient is currently on low-flow nasal cannula oxygen, he appears comfortable at this time, I have elected to keep the patient on a maintenance dose of Lasix at this time #2 COVID-19 infection-patient has completed his course of Decadron #3 severe COPD-complicates care, medical course, recovery, and prognosis #4 severe protein and caloric malnutrition-as evidenced by BMI of 16.8, 10% weight loss and less than 6 months, p.o. intake meeting less than 50% of nutritional requirements for the last 4 to 6 months-patient is on a general diet with energy and protein modification, and Ensure Plus high-protein is being given to the patient along with Magic cup dessert-patient is on Marinol, he is being seen by nutritional services #5 acute debility-patient has decided that he will not participate in physical therapy and that he wants to go home at the time of discharge from the hospital, again arrangements were made for an electric hospital bed for positioning of his head due to COPD. Total clinical time spent by myself addressing the patient's medical issues, reviewing all of his data, and collaborating with patient's care team: 35 minutes Medications at Discharge Home Medications pantoprazole 40 mg tablet,delayed release 40 mg PO BID ACID REFLUX 30 days #60 tabs 01/22/23 cholecalciferol (vitamin D3) 25 mcg (1,000 unit) capsule (Vitamin D3) 25 mcg PO DAILY SUPPLEMENT 02/12/23 aspirin 81 mg chewable tablet 81 mg PO BREAKFAST #0 tabs 02/25/23 clopidogrel 75 mg tablet (Plavix) 75 mg PO DAILY #30 tabs 02/25/23 dronabinol 2.5 mg capsule 2.5 mg PO BIDAC #60 caps 02/25/23 ipratropium 0.5 mg-albuterol 3 mg (2.5 mg base)/3 mL nebulization soln 3 ml inha lation 4XD #0 mL 02/25/23 mirtazapine 15 mg tablet (Remeron) 15 mg PO DAILY #30 tabs 02/25/23 rosuvastatin 20 mg tablet 20 mg PO DAILY CHOLESTEROL #1 TAB 02/25/23 Hospital Course Operations None Procedures None Summary of Care Provided Minutes Spent on Discharge: 32 Hospital Course: 72-year-old white male was seen in the emergency room at [facility] with complaints of generalized abdominal pain, fatigue, weakness, and shortness of breath. Patient's last hospitalization had been in January 2023 when he was hospitalized for GI bleed, respiratory failure, and lactic acidosis. Patient is normally on 2 L of oxygen at home, at the time of examination in the ER patient had to be placed on 4 L and had an O2 sat of 88%. Patient stated that he tested positive for COVID the day before. Labs were obtained which showed a slightly elevated white blood cell count at 13.2, sodium was low at 129 and chest x-ray showed a patchy right lower lobe infiltrate. Patient was admitted to PCU for acute on chronic hypoxic respiratory failure secondary to COVID-19 and suspected bacterial pneumonia, he was placed on Decadron, aerosol treatments, and placed on Levaquin 750 mg daily. Patient was not placed on remdesivir, over the next several days the patient's hypoxia worsened and the patient was placed on Airvo. Discussions were carried out with family members to to the patient's poor overall medical condition, he was seen by PT and OT but refused to participate with services. Patient was placed on diuretics during his hospital stay, patient's oxygen saturation finally stabilized and he was transition to nasal cannula oxygen. Patient agreed to go to an extended care facility for short-term rehab services, unfortunately he would not participate with PT and OT services and so the patient's family decided that they would take the patient home, initially a hospital bed was set up but the patient refused this, on 02/25/2023 patient had an episode of hypotension prior to discharge on that date which responded to IV fluid administration. Patient's family was made aware of this and they decided to take the patient home, he was kept off any blood pressure medicine or diuretic. On 02/25/2023, patient was seen and examined: On examination he appeared cachectic and frail. Vital signs as documented. Skin warm and dry and without overt rashes. Neck without JVD, neck was supple, trachea midline, thyroid was normal. Lungs clear, breath sounds were distant bilaterally. Heart exam notable for regular rhythm, normal sounds and absence of murmurs, rubs or gallops. Abdomen unremarkable and without evidence of organomegaly, masses, or abdominal aortic enlargement. Bowel sounds are present, abdomen is not distended. Extremities nonedematous, no cyanosis was noted, no clubbing was noted. Neuro: Cranial nerves II through XII are grossly intact, no focal motor deficits were noted, sensation to light touch and pinprick intact, motor exam 5/5 throughout. Psych: Patient is alert and oriented x3, he does not appear anxious or depressed, he does not appear agitated. On 02/25/2023, patient was seen and examined and felt to be stable for discharge home. Medical Records Data Medical Nutrition Assessment Dietitian: Malnutrition Criteria Met Start: 02/17/23 15:33 Freq: Status: Active Protocol: Document 02/17/23 15:33 RMA (Rec: 02/17/23 15:33 RMA [id number]) Nutrition Malnutrition Evidence of Malnutrition Exists Yes Malnutrition (severe): Chronic Evidenced By Suboptimal Energy Intake ( Severe),Weight Loss (Severe) Clinical Problem Chronic Disease or Condition Related Malnutrition Etiology Severe protein-calorie malnutrition in the context of chronic disease/debility related to inadequate oral intake and alcohol abuse Signs/Symptoms as evidenced by BMI 16.8, 10% weight loss in less than 6 months, PO meeting less than 50% estimated nutrition needs for past 4-6 months Status Active Problem Unintended Weight Loss Etiology related to predicted inadequate oral intake Signs/Symptoms as evidenced 18.8lbs (16.5%) weight loss in 6.5 months Status Active Problem Recommendation Dietitian Recommendations/Changes Will liberalize diet to regular given signs/symptoms of malnutrition. Will continue ensure plus high protein TID w/ medpass. Will add magic cup BID w/ lunch and dinner for tolerance . Weight / BMI Weight Weight: 43.1 kg Body Mass Index (BMI) 16.8 ABG / Lab / Microbiology Data 02/25/23 14:40 02/25/23 14:40 Microbiology: Microbiology 02/12/23 18:10 Urine, Clean Catch Legionella Antigen - Final 02/12/23 18:10 Urine, Clean Catch Streptococcus pneumoniae Antigen (M - Final 02/12/23 15:35 Nasal Secretion SARS-CoV-2 Antigen (Rapid) - Final SARS-CoV-2 (COVID 19) D/C Instructions Discharge Diet: No restrictions Weight Bearing Status: Full weight bearing Meaningful Use Info Meaningful Use Diagnoses (Choose all that apply): None applicable Discharge Plan Admission Admit Date/Time: 02/12/23 15:32 Primary Reason for Your Visit: COVID-19, respiratory failure Attending Provider: Edward Elizabeth Primary Care Provider: Dom Chaidez Consulting Providers: Temitope Son; Sukhi Alfredo Discharge Orders/Prescriptions Prescriptions: New ipratropium-albuterol 0.5 mg-3 mg(2.5 mg base)/3 mL Solution For Nebulization 3 ml inhalation 4XD Qty: 0 0RF dronabinol 2.5 mg Capsule 2.5 mg PO BIDAC Qty: 60 0RF aspirin 81 mg Tablet,Chewable 81 mg PO BREAKFAST Qty: 0 0RF clopidogrel [Plavix] 75 mg tablet 75 mg PO DAILY Qty: 30 0RF mirtazapine [Remeron] 15 mg tablet 15 mg PO DAILY Qty: 30 0RF Continued pantoprazole 40 mg Tablet,Delayed Release (Dr/Ec) 40 mg PO BID 30 Days Qty: 60 0RF cholecalciferol (vitamin D3) [Vitamin D3] 25 mcg (1,000 unit) capsule 25 mcg PO DAILY rosuvastatin 20 mg tablet 20 mg PO DAILY Qty: 1 0RF Discontinued glucose 4 GM tablet,chewable 4 g PO DAILY PRN (Reason: BLOOD SUGARS) valsartan-hydrochlorothiazide 320-12.5 mg tablet 1 tab PO DAILY Referrals / Follow Up: Dom Chaidez MD [Primary Care Provider] - 03/04/23 3:00 pm Disposition Disposition (needs filled in before D/C Order can be placed): Home Health Service Charges/Coding Visit Charges Inpatient E&M: 89291 Disch Hosp >30min
--- NOTE | 2023-02-25 13:18 | CASEMGMT ---
Addendum entered by Renita Domingo 02/25/23 13:31: KIKO POTTER updated [facility] that patient is discharging to home today. Original Note: KIKO POTTER updated by [facility] that they are able to accept the patient with planned start of care for . KIKO POTTER called [facility] to confirm BSC and hospital bed delivery. Per Nima, family cancelled hospital bed. KIKO POTTER called daughter Kimberly to confirm hospital bed being cancelled. Per Kimberly they did cancel hospital bed and purchased lift chair. KIKO POTTER updated Kimberly regarding [facility] acceptance and start of care for . Kimberly had no further questions or concerns and denied further needs at this time.
--- NOTE | 2023-02-25 14:06 | NURSING ---
Pt's bp dropped to 67/51. Cornelius Torres, RN, Cornelius Mosqueda, RN and Dr. Elizabeth at bedside with this RN. Pt placed in Trendelenburg position and 1L IV bolus started per Dr. Elizabeth.
--- NOTE | 2023-02-25 14:10 | EKG12_ITS ---
Test Reason : LOW BP Blood Pressure : / mmHG Vent. Rate : 081 BPM Atrial Rate : 081 BPM P-R Int : 194 ms QRS Dur : 080 ms QT Int : 358 ms P-R-T Axes : 076 048 072 degrees QTc Int : 415 ms Normal sinus rhythm Septal infarct (cited on or before 10-JAN-2006) Abnormal ECG When compared with ECG of 12-FEB-2023 14:11, Premature ventricular complexes are no longer Present T wave inversion no longer evident in Anterior leads Confirmed by TORRI EDDY, GOSIA ([id number]), purchasing expeditor PAULA STARK ([id number]) on 02/27/2023 11:09:49 AM Referred By: Confirmed By:GOSIA WILD MD
[2023-02-25] MEDS: 0.9% Normal Saline (1000mL) 1,000 ML 999 ML IV (14:15)
--- NOTE | 2023-02-25 14:26 | NURSING ---
Dr. Elizabeth in at bedside to discuss pt's options for low blood pressure. Will continue to give fluid and monitor on PCU per Dr. Elizabeth.
--- NOTE | 2023-02-25 14:30 | CASEMGMT ---
Addendum entered by Peter Paez 02/25/23 16:12: Pt now qualifies for O2 @ 3l/m continuously. Pt and dtr's aware. They have portable O2 tank in pt's room for him to go home on. They deny having further discharge needs or concerns. Original Note: KIKO POTTER NOTE: Call received from Nima @ [employer], stating the BSC will be delivered to pt's home either today or tomorrow. Juan Daniel ENNIS RN CM
[2023-02-25] MEDS: Ipratropium/Albuterol Sulfate 3 ML AMPUL.NEB INHALATION (14:53)
[2023-02-25 14:56] LABS: Absolute Lymphocyte Count 1.05 X10^3/uL (0.83-4.51); Absolute Neutrophil Count 6.5 X10^3/uL (2.0-7.7); Basophil# 0.01 X10^3/uL; Basophil% 0.1 % (0-1); Eosinophils% 1.2 % (0-5); Hematocrit 33.3 % (40-54); Hemoglobin 10.8 g/dL (13.0-16.5); Lymphocyte # 1.05 X10^3/ul (0.83-4.51); Lymphocyte % 12.8 % (19-41); Mean Corp Hgb Conc 32.4 g/dL (32-36); Mean Corpuscular Hgb 28.4 pg (27.0-32.0); Mean Corpuscular Volume 87.6 fL (80-94); Monocyte# 0.48 X10^3/uL; Monocyte% 5.8 % (0-10); NRBC Flagged by Analyzer 0 % (0-5); Neutrophil # 6.54 X10^3/uL (2.7-7.7); Neutrophil % 79.7 % (47-70); Platelet Count 285 K/mm3 (150-450); RBC Distribution Width CV 14.6 % (11.6-14.6); RBC Distribution Width SD 46.9 fl (35.1-43.9); White Blood Count 8.2 K/mm3 (4.4-11.0)
[2023-02-25 15:12] LABS: ALB/GLOB Ratio 0.6 RATIO (0.9-2.4); AST(SGOT) 13 U/L (15-37); Alanine Aminotransfer ALT/SGPT 26 U/L (16-61); Alkaline Phosphatase 82 U/L (45-117); Anion Gap 5 (5-15); BUN 37 mg/dL (7-18); BUN/Creat Ratio 37.3 RATIO (10-20); Calcium,Total 8.2 mg/dL (8.5-10.1); Chloride 99 mmol/L (98-107); Creatinine, Serum 0.99 mg/dL (0.70-1.30); EST Glomerular Filtration Rate 78 mL/min (>60); Est Glom Filt Rate - Afr Amer 95 mL/min (>60); Estimated Creatinine Clearance 40.51 ml/min; Globulin 3.2 g/dL (2.2-4.2); Glucose 159 mg/dL (74-106); Potassium 3.2 mmol/L (3.5-5.1); Protein, Total 5.2 g/dL (6.4-8.2); Sodium Level 136 mmol/L (136-145)
[2023-02-25] MEDS: 0.9% Normal Saline (500mL Bag) 500 ML 999 ML IV (15:20)
== END 2023-02-25 16:23 | disposition home health service (06) | DRG 177 ==
LOC: ED 15:16 → PCU 15:56
PROVIDERS: Family Medicine; Admitting Provider Internal Medicine; Emergency Provider Emergency Medicine; PCP Family Medicine; Visit Provider Internal Medicine
DX: U07.1 COVID-19 (principal); E43 Unspecified severe protein-calorie malnutrition; J96.21 Acute and chronic respiratory failure with hypoxia; J15.9 Unspecified bacterial pneumonia; E87.20 Acidosis, unspecified; E87.1 Hypo-osmolality and hyponatremia; J44.0 Chronic obstructive pulmonary disease with (acute) lower respiratory infection; J44.1 Chronic obstructive pulmonary disease with (acute) exacerbation; Z68.1 Body mass index [BMI] 19.9 or less, adult; M41.84 Other forms of scoliosis, thoracic region; I73.9 Peripheral vascular disease, unspecified; J43.9 Emphysema, unspecified; I10 Essential (primary) hypertension; F10.10 Alcohol abuse, uncomplicated; F17.210 Nicotine dependence, cigarettes, uncomplicated; E78.5 Hyperlipidemia, unspecified; Z66 Do not resuscitate; R53.81 Other malaise; Z79.52 Long term (current) use of systemic steroids; Z79.01 Long term (current) use of anticoagulants
CPT/HCPCS: 36415; 71045; 71250; 74176; 74230; 80048; 80053; 80076; 82962; 83605; 83690; 83735; 84100; 85025; 87449; 87641; 87811; 92610; 92611; 93005; 94002; 94003; 94640; 94660; 94667; 94762; 97162; 97166; 97530; 97535; 97802; 97803; 99252; 99285; J7030; J7040; J7050; J7120; 90662; A4216; G0463; J1940

== ENCOUNTER → 2023-03-05 | Outpatient (CLI) | payer MEDICARE, OTHER, SELFPAY ==
[2023-03-05 17:35] LABS: Absolute Lymphocyte Count 1.32 X10^3/uL (0.83-4.51); Absolute Neutrophil Count 3.4 X10^3/uL (2.0-7.7); Basophil# 0.03 X10^3/uL; Basophil% 0.6 % (0-1); Eosinophil# 0.24 X10^3/uL; Eosinophils% 4.4 % (0-5); Hematocrit 37.2 % (40-54); Hemoglobin 11.7 g/dL (13.0-16.5); Lymphocyte # 1.32 X10^3/ul (0.83-4.51); Lymphocyte % 24.2 % (19-41); Mean Corp Hgb Conc 31.5 g/dL (32-36); Mean Corpuscular Hgb 28.1 pg (27.0-32.0); Mean Corpuscular Volume 89.4 fL (80-94); Mean Platelet Vol. 9.9 fl (6.2-12.0); Monocyte# 0.42 X10^3/uL; Monocyte% 7.7 % (0-10); NRBC Flagged by Analyzer 0 % (0-5); Neutrophil # 3.43 X10^3/uL (2.7-7.7); Neutrophil % 62.9 % (47-70); Platelet Count 283 K/mm3 (150-450); RBC Distribution Width CV 15.2 % (11.6-14.6); RBC Distribution Width SD 49.7 fl (35.1-43.9); Red Blood Count 4.16 M/mm3 (4.6-6.2); White Blood Count 5.5 K/mm3 (4.4-11.0)
[2023-03-05 18:05] LABS: ALB/GLOB Ratio 0.6 RATIO (0.9-2.4); AST(SGOT) 13 U/L (15-37); Alanine Aminotransfer ALT/SGPT 22 U/L (16-61); Albumin, Serum 2.5 g/dL (3.2-5.0); Alkaline Phosphatase 96 U/L (45-117); Anion Gap 6 (5-15); BUN 17 mg/dL (7-18); BUN/Creat Ratio 21.9 RATIO (10-20); Calcium,Total 9.2 mg/dL (8.5-10.1); Chloride 107 mmol/L (98-107); Creatinine, Serum 0.78 mg/dL (0.70-1.30); EST Glomerular Filtration Rate 104 mL/min (>60); Est Glom Filt Rate - Afr Amer 126 mL/min (>60); Globulin 4.3 g/dL (2.2-4.2); Glucose 84 mg/dL (74-106); Potassium 3.6 mmol/L (3.5-5.1); Protein, Total 6.8 g/dL (6.4-8.2); Sodium Level 143 mmol/L (136-145)
== END | disposition home or self-care (01) ==
LOC: MFPLAB 16:23
PROVIDERS: PCP Family Medicine; Visit Provider Family Medicine
DX: J44.9 Chronic obstructive pulmonary disease, unspecified (principal)
CPT/HCPCS: 36415; 80053; 85025

== ENCOUNTER → 2023-03-26 | Outpatient (CLI) | payer MEDICARE, OTHER, SELFPAY ==
[2023-03-26 15:09] LABS: Absolute Lymphocyte Count 0.75 X10^3/uL (0.83-4.51); Absolute Neutrophil Count 5.4 X10^3/uL (2.0-7.7); Basophil# 0.06 X10^3/uL; Basophil% 0.9 % (0-1); Eosinophil# 0.05 X10^3/uL; Eosinophils% 0.7 % (0-5); Hematocrit 36.7 % (40-54); Hemoglobin 11.2 g/dL (13.0-16.5); Lymphocyte # 0.75 X10^3/ul (0.83-4.51); Lymphocyte % 11.1 % (19-41); Mean Corp Hgb Conc 30.5 g/dL (32-36); Mean Corpuscular Hgb 28.9 pg (27.0-32.0); Mean Corpuscular Volume 94.6 fL (80-94); Mean Platelet Vol. 10.3 fl (6.2-12.0); Monocyte# 0.52 X10^3/uL; Monocyte% 7.7 % (0-10); NRBC Flagged by Analyzer 0 % (0-5); Neutrophil # 5.36 X10^3/uL (2.7-7.7); Neutrophil % 79.3 % (47-70); Platelet Count 319 K/mm3 (150-450); RBC Distribution Width CV 17.4 % (11.6-14.6); RBC Distribution Width SD 59.7 fl (35.1-43.9); Red Blood Count 3.88 M/mm3 (4.6-6.2); White Blood Count 6.8 K/mm3 (4.4-11.0)
[2023-03-26 15:34] LABS: Vitamin B12 244 pg/mL (211-911); Vitamin D,25 Hydroxy 85.5 ng/mL
[2023-03-26 15:47] LABS: ALB/GLOB Ratio 0.8 RATIO (0.9-2.4); AST(SGOT) 14 U/L (15-37); Alanine Aminotransfer ALT/SGPT 16 U/L (16-61); Albumin, Serum 3.2 g/dL (3.2-5.0); Alkaline Phosphatase 100 U/L (45-117); Anion Gap 6 (5-15); BUN 18 mg/dL (7-18); BUN/Creat Ratio 20.7 RATIO (10-20); Calcium,Total 9.4 mg/dL (8.5-10.1); Chloride 105 mmol/L (98-107); Cholesterol 181 mg/dL (200); Creatinine, Serum 0.87 mg/dL (0.70-1.30); EST Glomerular Filtration Rate 92 mL/min (>60); Est Glom Filt Rate - Afr Amer 111 mL/min (>60); Ferritin 137 ng/mL (26-388); Globulin 4.2 g/dL (2.2-4.2); Glucose 88 mg/dL (74-106); High Density Lipoprotein 99 mg/dL; Iron 75 ug/dL (65-175); Iron Binding Capacity,Total 312 ug/dL (250-450); Potassium 4.2 mmol/L (3.5-5.1); Prealbumin 21.1 mg/dL (20.0-40.0); Protein, Total 7.4 g/dL (6.4-8.2); Sodium Level 140 mmol/L (136-145); Triglycerides 74 mg/dL; Very Low Density Lipoprotein 15 mg/dL (5-40)
== END | disposition home or self-care (01) ==
LOC: MFPLAB 11:45
PROVIDERS: PCP Family Medicine; Visit Provider Family Medicine
DX: M81.0 Age-related osteoporosis without current pathological fracture (principal); E46 Unspecified protein-calorie malnutrition; D64.9 Anemia, unspecified; I12.9 Hypertensive chronic kidney disease with stage 1 through stage 4 chronic kidney disease, or unspecified chronic kidney disease; N18.9 Chronic kidney disease, unspecified
CPT/HCPCS: 36415; 80053; 80061; 82306; 82607; 82728; 82746; 83540; 83550; 84134; 84443; 85025

== ENCOUNTER → 2023-04-08 | Outpatient (CLI) | payer MEDICARE, OTHER, SELFPAY ==
[2023-04-08 16:46] LABS: ALB/GLOB Ratio 0.9 RATIO (0.9-2.4); AST(SGOT) 19 U/L (15-37); Alanine Aminotransfer ALT/SGPT 20 U/L (16-61); Albumin, Serum 3.3 g/dL (3.2-5.0); Alkaline Phosphatase 99 U/L (45-117); Anion Gap 7 (5-15); BUN 16 mg/dL (7-18); BUN/Creat Ratio 16.7 RATIO (10-20); Calcium,Total 8.9 mg/dL (8.5-10.1); Chloride 104 mmol/L (98-107); Creatinine, Serum 0.96 mg/dL (0.70-1.30); EST Glomerular Filtration Rate 82 mL/min (>60); Est Glom Filt Rate - Afr Amer 99 mL/min (>60); Globulin 3.7 g/dL (2.2-4.2); Glucose 131 mg/dL (74-106); Potassium 3.7 mmol/L (3.5-5.1); Sodium Level 139 mmol/L (136-145)
== END | disposition home or self-care (01) ==
LOC: MFPLAB 12:07
PROVIDERS: PCP Family Medicine; Visit Provider Family Medicine
DX: I10 Essential (primary) hypertension (principal)
CPT/HCPCS: 36415; 80053

== ENCOUNTER → 2023-04-21 | Outpatient (CLI) | payer MEDICARE, OTHER, SELFPAY ==
--- NOTE | 2023-04-21 14:22 | CT_ITS ---
INDICATION: nodules seen on screening EXAMINATION: CT CHEST WITHOUT CONTRAST - CT Chest W/O Contrast Injection TECHNIQUE: Helically acquired images were obtained of the chest. A radiation dose optimization technique was used for this scan. IV Contrast dosage and agent: None. RADIATION DOSAGE (If Supplied By Facility): CTDIvol = ( 5.75 ) mGy, DLP = ( 197.14 ) mGycm COMPARISON: Prior study dated: 02/12/2023 FINDINGS: LUNGS, PLEURA AND LARGE AIRWAYS: Right lower lobe infiltrate markedly improved since the previous exam. Residual atelectatic changes in the right lower lobe. Severe centrilobular emphysema with bullous changes in the upper lungs and left lung base. No pleural effusion or thickening. No pneumothorax. THYROID: No thyroid lesions. HEART AND PERICARDIUM: Heart size is normal. No pericardial effusion. CORONARY ARTERIES: Coronary artery calcification is seen. VESSELS: Atherosclerotic calcifications of the thoracic aorta without evidence of aneurysm. MEDIASTINUM AND MAGGIE: No mediastinal or hilar adenopathy. Esophagus is unremarkable. No hiatal hernia. UPPER ABDOMEN: No acute pathology. Somewhat atrophic left kidney. BONES: Severe levoscoliosis of the thoracic spine and multilevel degenerative changes. CT/Chest without Contrast IMPRESSION: 1. Markedly improved right lower lobe infiltrate. 2. Atelectatic changes in the right lower lobe. 3. Severe emphysematous changes. Electronically Signed: Mohinder Hopson MD at 21:49 EST ,
== END | disposition home or self-care (01) ==
LOC: CT 14:22
PROVIDERS: PCP Family Medicine; Referring Provider Family Medicine; Visit Provider Family Medicine
DX: R91.8 Other nonspecific abnormal finding of lung field (principal)
CPT/HCPCS: 71250

== ENCOUNTER → 2023-07-10 | Outpatient (CLI) | payer MEDICARE, OTHER, SELFPAY ==
[2023-07-10 14:32] LABS: Absolute Lymphocyte Count 1.05 X10^3/uL (0.83-4.51); Basophil# 0.05 X10^3/uL; Basophil% 0.7 % (0-1); Eosinophil# 0.15 X10^3/uL; Eosinophils% 2.2 % (0-5); Hematocrit 32.5 % (40-54); Hemoglobin 10.1 g/dL (13.0-16.5); Lymphocyte # 1.05 X10^3/ul (0.83-4.51); Lymphocyte % 15.5 % (19-41); Mean Corp Hgb Conc 31.1 g/dL (32-36); Mean Corpuscular Hgb 28.1 pg (27.0-32.0); Mean Corpuscular Volume 90.3 fL (80-94); Mean Platelet Vol. 10.1 fl (6.2-12.0); Monocyte# 0.51 X10^3/uL; Monocyte% 7.5 % (0-10); NRBC Flagged by Analyzer 0 % (0-5); Neutrophil # 5.01 X10^3/uL (2.7-7.7); Neutrophil % 73.8 % (47-70); Platelet Count 278 K/mm3 (150-450); RBC Distribution Width SD 42.8 fl (35.1-43.9); White Blood Count 6.8 K/mm3 (4.4-11.0)
[2023-07-10 14:44] LABS: Vitamin D,25 Hydroxy 69.6 ng/mL
[2023-07-10 14:56] LABS: PTHIN 48.8 pg/mL (18.4-80.1)
[2023-07-10 15:30] LABS: AST(SGOT) 19 U/L (15-37); Alanine Aminotransfer ALT/SGPT 24 U/L (16-61); Albumin, Serum 3.6 g/dL (3.2-5.0); Alkaline Phosphatase 90 U/L (45-117); Anion Gap 5 (5-15); BUN 26 mg/dL (7-18); BUN/Creat Ratio 25.5 RATIO (10-20); Calcium,Total 9.5 mg/dL (8.5-10.1); Chloride 108 mmol/L (98-107); Cholesterol 132 mg/dL (200); Creatinine, Serum 1.02 mg/dL (0.70-1.30); EST Glomerular Filtration Rate 76 mL/min (>60); Est Glom Filt Rate - Afr Amer 92 mL/min (>60); Globulin 3.7 g/dL (2.2-4.2); Glucose 98 mg/dL (74-106); High Density Lipoprotein 79 mg/dL; Phosphorus 3.4 mg/dL (2.5-4.9); Potassium 4.1 mmol/L (3.5-5.1); Prealbumin 17.3 mg/dL (20.0-40.0); Protein, Total 7.3 g/dL (6.4-8.2); Sodium Level 140 mmol/L (136-145); Triglycerides 57 mg/dL; Very Low Density Lipoprotein 11 mg/dL (5-40)
[2023-07-10 15:35] LABS: Hemoglobin A1c 5.9 % (3.8-5.6)
== END | disposition home or self-care (01) ==
LOC: MFPLAB 11:25
PROVIDERS: PCP Family Medicine; Visit Provider Family Medicine
DX: I12.9 Hypertensive chronic kidney disease with stage 1 through stage 4 chronic kidney disease, or unspecified chronic kidney disease (principal); E46 Unspecified protein-calorie malnutrition; N18.9 Chronic kidney disease, unspecified; R73.02 Impaired glucose tolerance (oral); E55.9 Vitamin D deficiency, unspecified
CPT/HCPCS: 36415; 80053; 80061; 82306; 83036; 83735; 83970; 84100; 84134; 84443; 85025

== ENCOUNTER 2023-07-24 19:53 | Emergency (ER) | payer MEDICARE, OTHER, SELFPAY ==
[2023-07-24 19:54] VITALS: BP 106/72; PULSE 92; RESP 18; TEMP 36.6; O2SAT 97
--- OUTSIDE RECORDS SUMMARY | 2023-07-24 21:11 | XMS RPT_ITS | CCD ---
Author Name Unknown Address [address] [place] [address] Organization [facility] Care Team Providers Care Pal[place] Stone Positioner Name Role Phone SYLVIA COBB DO Primary Care Physician [phone] BLANCHE TELEGRAPH REPEATER MECHANIC-FREIGHT HUSTLER, NIMA Primary Care Physician ([phone]) BLANCHE TELEGRAPH REPEATER MECHANIC-NAHUM, NIMA Primary Care Physician ([phone]) NIMA MANCIA Attending Unavailable BLANCHE, NIMA Primary Care Unavailable BLANCHE, NIMA Attending Unavailable BLANCHE, NIMA Primary Care Unavailable NIMA MANCIA Attending Unavailable SYLVIA COBB DO Primary Care Unavailable Allergies Allergy Classification Reported Allergen(s) Allergy Type Date of Onset Reaction(s) Facility (3 sources) Ciprofloxacin; Translations: [ciprofloxacin] Drug Allergy [facility] Medications Current Medications Medication Drug Class(es) Dates Sig (Normalized) Sig (Original) aspirin 81 mg delayed release oral tablet (2 sources) Platelet Aggregation Inhibitor, Nonsteroidal Anti-inflammatory Drug Start: 03-21-2022 aspirin 81 mg oral delayed release tablet Dose : 81 mg = 1 tab(s), Oral, Daily, # 90 tab(s), 3 Refill(s), Pharmacy: [facility]/pharmacy #[id number], Peripheral vascular disease, 160, cm, 03/21/22 8:53:00 EDT, Height Start Date: 03/21/22 Status: Ordered 24 hr dilTIAZem hydrochloride 180 mg extended release oral capsule (3 sources) Calcium Channel Robel Start: 02-05-2022 End: 05-06-2022 take 1 capsule by mouth every hour, then take 1 capsule by mouth once daily Dilt-XR 180 mg/24 hours oral capsule, extended release Dose : 180 mg = 1 cap(s), Oral, qDay, # 90 cap(s), 0 Refill(s), Pharmacy: [facility]/pharmacy #[id number], 157.5, cm, 09/18/21 10:13:00 EDT, Height, kg, 09/18/21 10:13:00 EDT, Dosing Weight Start Date: 02/05/22 Stop Date: 05/06/22 Status: Ordered Completed/Discontinued Medications Medication Drug Class(es) Dates Sig (Normalized) Sig (Original) albuterol MDI (90 mcg/inh) CFC free inhalation aerosol (3 sources) Start: 03-06-2020 End: 03-01-2021 take 2 puff(s) by inhalation every four hours albuterol MDI (90 mcg/inh) CFC free inhalation aerosol 2 puff(s), Inhalation, q4h, ok to fill generic equivalent rescue inhaler, # 1 EA, 11 Refill(s), Pharmacy: [facility]/pharmacy #[id number], 160, cm, 03/06/20 10:00:00 EDT, Height, kg, 03/06/20 10:00:00 EDT, Dosing Weight Start Date: 03/06/20 Stop Date: 03/01/21 Status: Ordered 1 ml denosumab 60 mg/ml prefilled syringe (1 source) RANK Ligand Inhibitor Start: 03-28-2022 Prolia 60 mg/mL subcutaneous solution Dose : 60 mg = 1 mL, Subcutaneous, q6mo, # 1 mL, 0 Refill(s), Osteoporosis Start Date: 03/28/22 Status: Ordered Problems Problem Classification Problem Date Documented Da te Episodic/Chronic Chronic kidney disease (3 sources) Chronic kidney disease stage 3 05-31-2019 Chronic Chronic obstructive pulmonary disease and bronchiectasis (3 sources) Chronic obstructive lung disease 09-04-2020 Chronic Conduction disorders (3 sources) First degree atrioventricular block 05-26-2019 Chronic Diabetes mellitus without complication (3 sources) Prediabetes 12-20-2020 Episodic Esophageal disorders (3 sources) Gastro-esophageal reflux disease with esophagitis 01-04-2019 Chronic Essential hypertension (3 sources) Hypertensive disorder 12-23-2014 Chronic Genitourinary symptoms and ill-defined conditions (3 sources) Nocturia 09-04-2020 Episodic Malaise and fatigue (6 sources) Fatigue; Translations: [Lack of energy] 09-04-2020 Episodic Nutritional deficiencies (3 sources) Vitamin D deficiency 01-04-2019 Chronic Osteoporosis (3 sources) Osteoporosis 12-15-2020 Chronic Other circulatory disease (3 sources) Peripheral arterial occlusive disease 08-02-2019 Chronic Other circulatory disease (3 sources) History of syncope 01-04-2019 Episodic Other circulatory disease (3 sources) Low blood pressure 01-25-2020 Episodic Other endocrine disorders (3 sources) Hypoglycemia 01-04-2019 Chronic Other nervous system disorders (3 sources) Disorder of sleep-wake cycle 09-04-2020 Chronic Other non-epithelial cancer of skin (3 sources) Malignant neoplasm of skin of nose (external) 05-26-2019 Episodic Other screening for suspected conditions (not mental disorders or infectious disease) (3 sources) Viral screening status 12-08-2020 Episodic Peripheral and visceral atherosclerosis (3 sources) Peripheral vascular disease 01-04-2019 Chronic Residual codes; unclassified (3 sources) Immunization due 03-06-2020 Episodic Residual codes; unclassified (3 sources) Tobacco user 05-26-2019 Episodic Screening and history of mental health and substance abuse codes (3 sources) Tobacco use and exposure - finding 12-08-2020 Chronic Unclassified (3 sources) Colon cancer screening declined 12-08-2020 Unclassified (3 sources) Medication refused 12-08-2020 Unclassified (12 sources) Patient encounter status 12-08-2020 Results Test Name Value Interpretation Reference Range Facil ity Encounters Encounter Date Encounter Type Care Provider Facility Start: 04-19-2022 End: 04-20-2022 ambulatory [facility] Facility:B Start: 04-19-2022 End: 04-19-2022 Patient encounter procedure NIMA MANCIA TELEGRAPH REPEATER MECHANIC-FREIGHT HUSTLER [facility] Start: 03-21-2022 End: 03-22-2022 ambulatory NIMA MANCIA Facility:B Start: 03-21-2022 End: 03-21-2022 Patient encounter procedure NIMA MANCIA TELEGRAPH REPEATER MECHANIC-FREIGHT HUSTLER [facility] Start: 09-18-2021 End: 09-19-2021 ambulatory NIMA BLANCHE Facility:B Start: 09-18-2021 End: 09-18-2021 Patient encounter procedure NIMA MANCIA TELEGRAPH REPEATER MECHANIC-FREIGHT HUSTLER [facility] Procedures Date Procedure Procedure Detail Performing Clinician Peripheral arterial bypass R ROME BLANCHE TELEGRAPH REPEATER MECHANIC-FREIGHT HUSTLER Immunizations Immunization Date Immunization Notes Care Provider Steve quinteroscolton 03-21-2022 influenza, high dose seasonal, preservative-free NIMA BLANCHE TELEGRAPH REPEATER MECHANIC-FREIGHT HUSTLER [facility] 02-22-2021 SARS-CoV-2 mRNA (tozinameran) vaccine NIMA MANCIA TELEGRAPH REPEATER MECHANIC-FREIGHT HUSTLER [facility] 08-15-2020 SARS-CoV-2 mRNA (tozinameran) vaccine NIMA MANCIA TELEGRAPH REPEATER MECHANIC-FREIGHT HUSTLER [facility] Payers Date Payer Category Payer Unknown [id number] 2021 Medicare [id number] 2021 Unknown [id number] 1950 Unknown [id number] 1950 Unknown [id number] 1950 Unknown [id number] Social History Date Type Detail Facility Start: 05-26-2019 Tobacco smoking status Heavy t obacco smoker (finding) [facility] Clinical Note 04-19-2022 Note Date & Type Note Facility 04-19-2022 Note ORIGINAL EXAMINATION: SCREENING ULTRASOUND OF THE AORTA 04/19/2022 TECHNIQUE: Duplex ultrasound using B-mode/sewell scaled imaging, Doppler spectral analysis and color flow Doppler was obtained of the aorta. COMPARISON: None HISTORY: ORDERING SYSTEM PROVIDED HISTORY: Reason for Exam: screening for AAA, significant smoking htn ABDOMINAL AORTA MEASUREMENTS Proximal: 2.8 x 3.0 cm Mid: 1.8 x 2.1 cm Distal: 1.3 x 2.0 Right common iliac artery: 0.9 x 1.0 cm Left common iliac artery: 1.2 x 1.7 cm Irregular left common iliac fibrotic plaque causes increased peak flow velocity measuring 81 cm/s. Right common iliac peak velocity measures 59 cm/s. This is compared to a peak systolic velocity of 27 cm/s of the mid aorta. Aortoiliac atherosclerosis. 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 No significant mid or distal abdominal aortic dilatation. Please see recommendations as below. 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 Mild stenosis of the proximal right common iliac artery. If clinically indicated a CTA may be of benefit for further evaluation. I have personally reviewed the images of this examination and agree with the resident's findings and interpretation. RECOMMENDATIONS: AAA Size, long axis: Follow-up Recommendation : 2.6-2.9 cm Every 5 years 3.0-3.4 cm Every 3 years 3.5-3.9 cm Every 2 years 4.0-4.4 cm Every 1 year, vascular consultation recommended 4.5-5.4 cm Every 6 months, vascular consultation recommended >5.5 cm Vascular surgery consultation recommended Enlarging Fusiform AAA: Recommend vascular consultation if enlarges > 0.5 cm in 6 months or > 1 cm in one year. Saccular AAA of any size: Recommend Vascular consultation. Measurements are outer wall to outer wall, maximum diameter. 1. J Vascular Surg. 2009 Oct;50(4 Supplemental):S2-49 2. For aortas with maximum diameter of 2.6-2.9 cm meeting the criteria for AAA (>50% of proximal normal segment) Interpreted by: Anibal Asnari MD Preliminary Report By: Memo Iyer Electronically signed By Anibal Ansari MD Dictated Date: 04/19/2022 11:05:01 AM Prelim Date: 04/19/2022 4:36:10 PM Sign Date: 04/19/2022 4:36:10 PM Ordering Provider: [facility] Clinical Note 04-19-2022 Note Date & Type Note Facility 04-19-2022 Note ORIGINAL EXAMINATION: SCREENING ULTRASOUND OF THE AORTA 04/19/2022 TECHNIQUE: Duplex ultrasound using B-mode/sewell scaled imaging, Doppler spectral analysis and color flow Doppler was obtained of the aorta. COMPARISON: None HISTORY: ORDERING SYSTEM PROVIDED HISTORY: Reason for Exam: screening for AAA, significant smoking htn ABDOMINAL AORTA MEASUREMENTS Proximal: 2.8 x 3.0 cm Mid: 1.8 x 2.1 cm Distal: 1.3 x 2.0 Right common iliac artery: 0.9 x 1.0 cm Left common iliac artery: 1.2 x 1.7 cm Irregular left common iliac fibrotic plaque causes increased peak flow velocity measuring 81 cm/s. Right common iliac peak velocity measures 59 cm/s. This is compared to a peak systolic velocity of 27 cm/s of the mid aorta. Aortoiliac atherosclerosis. 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 No significant mid or distal abdominal aortic dilatation. Please see recommendations as below. 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 Mild stenosis of the proximal right common iliac artery. If clinically indicated a CTA may be of benefit for further evaluation. I have personally reviewed the images of this examination and agree with the resident's findings and interpretation. RECOMMENDATIONS: AAA Size, long axis: Follow-up Recommendation : 2.6-2.9 cm Every 5 years 3.0-3.4 cm Every 3 years 3.5-3.9 cm Every 2 years 4.0-4.4 cm Every 1 year, vascular consultation recommended 4.5-5.4 cm Every 6 months, vascular consultation recommended >5.5 cm Vascular surgery consultation recommended Enlarging Fusiform AAA: Recommend vascular consultation if enlarges > 0.5 cm in 6 months or > 1 cm in one year. Saccular AAA of any size: Recommend Vascular consultation. Measurements are outer wall to outer wall, maximum diameter. 1. J Vascular Surg. 2009 Feb;50(4 Supplemental):S2-49 2. For aortas with maximum diameter of 2.6-2.9 cm meeting the criteria for AAA (>50% of proximal normal segment) Interpreted by: Anibal Ansari MD Preliminary Report By: Memo Iyer Electronically signed By Anibal Ansari MD Dictated Date: 04/19/2022 11:05:01 AM Prelim Date: 04/19/2022 4:36:10 PM Sign Date: 04/19/2022 4:36:10 PM Ordering Provider: NIMA MANCIA [facility] Evaluation + Plan note 03-21-2022 Radiology Note Date & Type Note Facility 03-21-2022 Evaluation + Plan note Future Scheduled TestsUS Abdomen and Aorta 03/21/22 [facility] Evaluation + Plan note Laboratory Note Date & Type Note Facility Evaluation + Plan note Future Appointments Appointment Date:03/21/2022 09:00:00 AM Scheduled Provider:NIMA MANCIA Location:[facility] Appointment Type:[facility] Medicare Future Scheduled TestsLipid Profile 12/08/20 [facility] Hospital course Narrative Note Date & Type Note Facility Hospital course Narrative No data available for this section [facility] Hospital Discharge instructions Note Date & Type Note Facility Hospital Discharge instructions No data available for this section [facility] Progress note Note Date & Type Note Facility Progress note No data available for this section [facility] Summary Purpose Family History No Family History Records FoundNo Family History Records Found Advance Directives No Advanced Directives Records FoundNo Advanced Directives Records Found Additional Source Comments Care Team (unrecognized sect ion and content) Personnel Name: SYLVIA COBB DO Address: [address] [place] [address] Care Team (unrecognized sect ion and content) Care Team Personnel Name: NIMA MANCIA Position: P4 Advanced Practice Nurse Member Role: Primary Care Physician Address: Address: [address] [place] [address] Care Team Related Persons Name: PRAMOD ESCOBAR Care Team Personnel Name: NIMA MANCIA Position: P4 Advanced Practice Nurse Member Role: Primary Care Physician Address: Address: [address] [place] [address] Care Team Related Persons Name: PRAMOD ESCOBAR (unrecognized sect ion and content) No Status Records FoundNo Status Records Found INFORMATION SOURCE (unrecogn ized section and content) DATE CREATED AUTHOR AUTHOR'S HEENA MONTESINOS 04/20/2022 [facility] [place] ([place]) FOR RECORDS PERTAINING TO PATIENTS WHO ARE OR HAVE BEEN ENROLLED IN A CHEMICAL DEPENDENCY/SUBSTANCEABUSE PROGRAM, SOME INFORMATION MAY BE OMITTED. This clinical summary was aggregated from multiple sources. Caution should be exercised in using it in the provision of clinical care. This summary normalizes information from multiple sources, and as a consequence, information in this document may materially change the coding, format and clinical context of patient data. In addition, data may be omitted in some cases. CLINICAL DECISIONS SHOULD BE BASED ON THE PRIMARY CLINICAL RECORDS. [facility] [employer] [facility]. provides no warranty or guarantee of the accuracy or completeness of information in this document.
== END 2023-07-24 20:18 | disposition left against medical advice (07) ==
LOC: ED 20:19
PROVIDERS: PCP Family Medicine
DX: Z00.00 Encounter for general adult medical examination without abnormal findings (principal)

== ENCOUNTER → 2023-10-29 | Outpatient (CLI) | payer MEDICARE, OTHER, SELFPAY ==
[2023-10-29 10:42] LABS: Absolute Lymphocyte Count 1.87 X10^3/uL (0.83-4.51); Absolute Neutrophil Count 5.8 X10^3/uL (2.0-7.7); Basophil# 0.06 X10^3/uL; Basophil% 0.7 % (0-1); Eosinophil# 0.29 X10^3/uL; Eosinophils% 3.3 % (0-5); Hematocrit 28.4 % (40-54); Hemoglobin 8.6 g/dL (13.0-16.5); Lymphocyte # 1.87 X10^3/ul (0.83-4.51); Lymphocyte % 21.2 % (19-41); Mean Corp Hgb Conc 30.3 g/dL (32-36); Mean Corpuscular Hgb 25.5 pg (27.0-32.0); Mean Corpuscular Volume 84.3 fL (80-94); Mean Platelet Vol. 10.8 fl (6.2-12.0); Monocyte# 0.77 X10^3/uL; Monocyte% 8.7 % (0-10); NRBC Flagged by Analyzer 0 % (0-5); Neutrophil % 65.9 % (47-70); Platelet Count 296 K/mm3 (150-450); RBC Distribution Width CV 16.2 % (11.6-14.6); RBC Distribution Width SD 49.8 fl (35.1-43.9); Red Blood Count 3.37 M/mm3 (4.6-6.2); White Blood Count 8.8 K/mm3 (4.4-11.0)
[2023-10-29 11:14] LABS: Vitamin B12 215 pg/mL (211-911)
[2023-10-29 11:29] LABS: ALB/GLOB Ratio 0.9 RATIO (0.9-2.4); AST(SGOT) 20 U/L (15-37); Alanine Aminotransfer ALT/SGPT 22 U/L (16-61); Albumin, Serum 3.6 g/dL (3.2-5.0); Alkaline Phosphatase 83 U/L (45-117); Anion Gap 8 (5-15); BUN 34 mg/dL (7-18); BUN/Creat Ratio 26.4 RATIO (10-20); Calcium,Total 9.5 mg/dL (8.5-10.1); Chloride 108 mmol/L (98-107); Creatinine, Serum 1.29 mg/dL (0.70-1.30); EST Glomerular Filtration Rate 58 mL/min (>60); Est Glom Filt Rate - Afr Amer 70 mL/min (>60); Ferritin 12 ng/mL (26-388); Globulin 3.9 g/dL (2.2-4.2); Glucose 84 mg/dL (74-106); Iron 16 ug/dL (65-175); Iron Binding Capacity,Total 491 ug/dL (250-450); PSA,Total - Annual Screen 0.75 ng/mL (0.00-4.00); Potassium 3.7 mmol/L (3.5-5.1); Protein, Total 7.5 g/dL (6.4-8.2); Sodium Level 138 mmol/L (136-145)
== END | disposition home or self-care (01) ==
LOC: MFPLAB 09:05
PROVIDERS: PCP Family Medicine; Visit Provider Family Medicine
DX: D64.9 Anemia, unspecified (principal); Z12.5 Encounter for screening for malignant neoplasm of prostate
CPT/HCPCS: 36415; 80053; 82607; 82728; 82746; 83540; 83550; 84153; 85025; G0103

== ENCOUNTER → 2023-11-03 | Outpatient (CLI) | payer MEDICARE, OTHER, SELFPAY ==
[2023-11-03 15:24] LABS: Absolute Lymphocyte Count 1.47 X10^3/uL (0.83-4.51); Absolute Neutrophil Count 5.1 X10^3/uL (2.0-7.7); Basophil# 0.04 X10^3/uL; Basophil% 0.5 % (0-1); Eosinophil# 0.29 X10^3/uL; Eosinophils% 3.8 % (0-5); Hematocrit 28.3 % (40-54); Hemoglobin 8.5 g/dL (13.0-16.5); Lymphocyte # 1.47 X10^3/ul (0.83-4.51); Lymphocyte % 19.3 % (19-41); Mean Corpuscular Hgb 25.5 pg (27.0-32.0); Monocyte# 0.69 X10^3/uL; NRBC Flagged by Analyzer 0 % (0-5); Neutrophil % 66.9 % (47-70); Platelet Count 313 K/mm3 (150-450); RBC Distribution Width CV 16.1 % (11.6-14.6); RBC Distribution Width SD 49.4 fl (35.1-43.9); Red Blood Count 3.33 M/mm3 (4.6-6.2); White Blood Count 7.6 K/mm3 (4.4-11.0)
== END | disposition home or self-care (01) ==
PROVIDERS: PCP Family Medicine; Referring Provider Family Medicine; Visit Provider Family Medicine
DX: D64.9 Anemia, unspecified (principal)
CPT/HCPCS: 36415; 85025

== ENCOUNTER → 2023-11-10 | Outpatient (CLI) | payer MEDICARE, OTHER, SELFPAY ==
[2023-11-10 15:34] LABS: Absolute Lymphocyte Count 1.59 X10^3/uL (0.83-4.51); Absolute Neutrophil Count 6.8 X10^3/uL (2.0-7.7); Basophil# 0.06 X10^3/uL; Basophil% 0.6 % (0-1); Eosinophil# 0.23 X10^3/uL; Eosinophils% 2.4 % (0-5); Hematocrit 31.9 % (40-54); Hemoglobin 9.5 g/dL (13.0-16.5); Lymphocyte # 1.59 X10^3/ul (0.83-4.51); Lymphocyte % 16.8 % (19-41); Mean Corp Hgb Conc 29.8 g/dL (32-36); Mean Corpuscular Hgb 25.9 pg (27.0-32.0); Mean Corpuscular Volume 86.9 fL (80-94); Mean Platelet Vol. 10.6 fl (6.2-12.0); Monocyte# 0.79 X10^3/uL; Monocyte% 8.4 % (0-10); NRBC Flagged by Analyzer 0 % (0-5); Neutrophil # 6.76 X10^3/uL (2.7-7.7); Neutrophil % 71.5 % (47-70); Platelet Count 334 K/mm3 (150-450); RBC Distribution Width CV 19.6 % (11.6-14.6); RBC Distribution Width SD 59.8 fl (35.1-43.9); Red Blood Count 3.67 M/mm3 (4.6-6.2); White Blood Count 9.5 K/mm3 (4.4-11.0)
== END | disposition home or self-care (01) ==
PROVIDERS: PCP Family Medicine; Referring Provider Family Medicine; Visit Provider Family Medicine
DX: D64.9 Anemia, unspecified (principal)
CPT/HCPCS: 36415; 85025

== ENCOUNTER → 2023-11-24 | Outpatient (CLI) | payer MEDICARE, OTHER, SELFPAY ==
[2023-11-24 17:53] LABS: Absolute Lymphocyte Count 1.91 X10^3/uL (0.83-4.51); Basophil# 0.05 X10^3/uL; Basophil% 0.7 % (0-1); Eosinophil# 0.21 X10^3/uL; Hematocrit 35.8 % (40-54); Hemoglobin 10.8 g/dL (13.0-16.5); Lymphocyte # 1.91 X10^3/ul (0.83-4.51); Lymphocyte % 27.4 % (19-41); Mean Corp Hgb Conc 30.2 g/dL (32-36); Mean Corpuscular Hgb 26.6 pg (27.0-32.0); Mean Corpuscular Volume 88.2 fL (80-94); Mean Platelet Vol. 10.5 fl (6.2-12.0); Monocyte# 0.74 X10^3/uL; Monocyte% 10.6 % (0-10); NRBC Flagged by Analyzer 0 % (0-5); Neutrophil # 4.03 X10^3/uL (2.7-7.7); Platelet Count 297 K/mm3 (150-450); RBC Distribution Width CV 19.4 % (11.6-14.6); RBC Distribution Width SD 63.1 fl (35.1-43.9); Red Blood Count 4.06 M/mm3 (4.6-6.2)
== END | disposition home or self-care (01) ==
LOC: MFPLAB 14:45
PROVIDERS: PCP Family Medicine; Visit Provider Family Medicine
DX: D64.9 Anemia, unspecified (principal)
CPT/HCPCS: 36415; 85025

== ENCOUNTER → 2023-11-25 | Outpatient (CLI) | payer MEDICARE, OTHER, SELFPAY ==
--- NOTE | 2023-11-25 12:52 | CDU_ITS ---
Reason For Study: OCCLUSION AND STENOSIS OF RT CAROTID A Rt. Velocities/BP Lt. Velocities/BP Prox CCA 60.7/23.0 cm/sec. Prox CCA 54.4/15.7 cm/sec. Mid CCA 45.0/16.6 cm/sec. Mid CCA 69.5/18.5 cm/sec. Dist CCA 47.8/19.5 cm/sec. Dist CCA 96.5/17.9 cm/sec. Prox ICA 107.0/41.3 cm/sec. Prox ICA 47.4/20.4 cm/sec. Mid ICA 116.9/35.3 cm/sec. Mid ICA 56.4/25.8 cm/sec. Dist ICA 72.3/24.2 cm/sec. Dist ICA 70.6/23.0 cm/sec. Rt. ICA/CCA = 2.59. Lt. ICA/CCA = 1.01. Prox ECA 343.7/53.4 cm/sec. Prox ECA 114.3/12.1 cm/sec. Rt. Vert. 63.3/27.0 cm/sec. Lt. Vert. 53.1/13.0 cm/sec. Right Extracranial There is heterogeneous, irregular atherosclerotic plaque noted in the right common carotid artery. There is heterogeneous, irregular atherosclerotic plaque noted in the right internal carotid artery. The atherosclerotic plaque causes acoustic shadowing. There is heterogeneous, irregular atherosclerotic plaque noted in the right external carotid artery. Antegrade flow is noted in the right vertebral artery. Left Extracranial There is heterogeneous, irregular atherosclerotic plaque noted in the left common carotid artery. There is heterogeneous, irregular atherosclerotic plaque noted in the left internal carotid artery. The atherosclerotic plaque causes acoustic shadowing. There is heterogeneous, irregular atherosclerotic plaque noted in the left external carotid artery. Antegrade flow is noted in the left vertebral artery. Procedure Carotid Duplex 27557. This is a Carotid Duplex examination using B-mode, color flow and specral Doppler. Exam performed in department. VL/Carotid Duplex Ultrasound Interpretation Summary Mild (<50%) stenosis right extracranial internal carotid. Mild (<50%) stenosis left extracranial internal carotid. Patent and antegrade vertebrals bilaterally. Limited due to calcific shadowing, alternative imaging may be beneficial Ordering Physician: Randolph Fairchild Referring Physician: Dom Chaidez Performed By: Renita Avina RVT and Student
== END | disposition home or self-care (01) ==
PROVIDERS: PCP Family Medicine; Referring Provider Ophthalmology; Visit Provider Ophthalmology
DX: I65.21 Occlusion and stenosis of right carotid artery (principal)
CPT/HCPCS: 93880

== ENCOUNTER → 2024-01-14 | Outpatient (CLI) | payer MEDICARE, OTHER, SELFPAY ==
[2024-01-14 18:14] LABS: Basophil# 0.06 X10^3/uL; Basophil% 0.8 % (0-1); Eosinophil# 0.38 X10^3/uL; Eosinophils% 4.8 % (0-5); Hematocrit 38.4 % (40-54); Hemoglobin 11.9 g/dL (13.0-16.5); Lymphocyte % 21.4 % (19-41); Mean Corpuscular Hgb 26.9 pg (27.0-32.0); Mean Corpuscular Volume 86.9 fL (80-94); Mean Platelet Vol. 10.6 fl (6.2-12.0); Monocyte# 0.76 X10^3/uL; Monocyte% 9.5 % (0-10); NRBC Flagged by Analyzer 0 % (0-5); Neutrophil # 5.04 X10^3/uL (2.7-7.7); Neutrophil % 63.2 % (47-70); Platelet Count 244 K/mm3 (150-450); RBC Distribution Width CV 15.9 % (11.6-14.6); RBC Distribution Width SD 50.7 fl (35.1-43.9); Red Blood Count 4.42 M/mm3 (4.6-6.2)
[2024-01-14 18:34] LABS: ALB/GLOB Ratio 0.9 RATIO (0.9-2.4); AST(SGOT) 19 U/L (15-37); Alanine Aminotransfer ALT/SGPT 14 U/L (16-61); Albumin, Serum 3.4 g/dL (3.2-5.0); Alkaline Phosphatase 91 U/L (45-117); Anion Gap 8 (5-15); BUN 16 mg/dL (7-18); BUN/Creat Ratio 14.5 RATIO (10-20); Calcium,Total 9.5 mg/dL (8.5-10.1); Chloride 104 mmol/L (98-107); Cholesterol 130 mg/dL (200); EST Glomerular Filtration Rate 70 mL/min (>60); Est Glom Filt Rate - Afr Amer 84 mL/min (>60); Ferritin 15 ng/mL (26-388); Globulin 3.8 g/dL (2.2-4.2); Glucose 90 mg/dL (74-106); High Density Lipoprotein 82 mg/dL; Iron 38 ug/dL (65-175); Iron Binding Capacity,Total 396 ug/dL (250-450); Magnesium 1.9 mg/dL (1.6-2.6); Potassium 4.1 mmol/L (3.5-5.1); Protein, Total 7.2 g/dL (6.4-8.2); Sodium Level 137 mmol/L (136-145); Triglycerides 63 mg/dL; Very Low Density Lipoprotein 13 mg/dL (5-40)
[2024-01-14 18:37] LABS: PTHIN 49.2 pg/mL (18.4-80.1)
[2024-01-14 18:42] LABS: Vitamin D,25 Hydroxy 66.6 ng/mL
[2024-01-14 18:59] LABS: Hemoglobin A1c 5.4 % (3.8-5.6)
== END | disposition home or self-care (01) ==
LOC: MFPLAB 16:48
PROVIDERS: PCP Family Medicine; Visit Provider Family Medicine
DX: D64.9 Anemia, unspecified (principal); E55.9 Vitamin D deficiency, unspecified; R73.02 Impaired glucose tolerance (oral); E78.5 Hyperlipidemia, unspecified; N18.9 Chronic kidney disease, unspecified; I12.9 Hypertensive chronic kidney disease with stage 1 through stage 4 chronic kidney disease, or unspecified chronic kidney disease
CPT/HCPCS: 36415; 80053; 80061; 82306; 82728; 83036; 83540; 83550; 83735; 83970; 85025

== ENCOUNTER 2024-04-24 17:25 | Emergency (ER) | payer MEDICARE, OTHER, SELFPAY ==
[2024-04-24 17:26] VITALS: BP 132/62; PULSE 78; RESP 16; TEMP 37; O2SAT 98; BMI 18.6
--- NOTE | 2024-04-24 17:41 | EX.ED.DYSGE1 ---
HPI History of Present Illness Chief Complaint: Nosebleed [facility] Medical History (Updated 04/24/24 @ 20:[address] Agustin Quinones DO) Incidental pulmonary nodule, less than or equal to 3mm Acute respiratory failure with hypoxemia Chronic bullous emphysema COPD exacerbation Hard of hearing Wears eyeglasses Alcohol abuse Hypoglycemia High cholesterol Neuropathy Head injury Passed out Heartburn Smoker COPD (chronic obstructive pulmonary disease) Shortness of breath Leg pain Leg cramps Edema History of stress test Osteoporosis Peripheral arterial occlusive disease Back pain HTN (hypertension) PAOD (peripheral arterial occlusive disease) Home Medications ?Medication ?Instructions ?Recorded ?Last Taken ?Type pantoprazole 40 mg tablet,delayed 40 mg PO BID ACID REFLUX 30 days 01/22/23 02/07/23 Rx release #60 tabs cholecalciferol (vitamin D3) 25 25 mcg PO DAILY SUPPLEMENT 02/12/23 02/07/23 History mcg (1,000 unit) capsule (Vitamin D3) aspirin 81 mg chewable tablet 81 mg PO BREAKFAST #0 tabs 02/25/23 Unknown Rx clopidogrel 75 mg tablet (Plavix) 75 mg PO DAILY #30 tabs 02/25/23 Unknown Rx dronabinol 2.5 mg capsule 2.5 mg PO BIDAC #60 caps 02/25/23 Unknown Rx ipratropium 0.5 mg-albuterol 3 mg 3 ml inhalation 4XD #0 mL 02/25/23 Unknown Rx (2.5 mg base)/3 mL nebulization soln mirtazapine 15 mg tablet (Remeron) 15 mg PO DAILY #30 tabs 02/25/23 Unknown Rx rosuvastatin 20 mg tablet 20 mg PO DAILY CHOLESTEROL #1 TAB 02/25/23 02/07/23 Rx Allergy/AdvReac Type Severity Reaction Status Date / Time ciprofloxacin HCl (From Allergy Severe Nausea Verified 07/24/23 19:55 Cipro) Family History Father Hypertension Cancer lung Other Osteoporosis Surgical History H/O esophagogastroduodenoscopy Hx of right cataract extraction Hx of left cataract extraction Hx of colonoscopy Status post peripheral artery angioplasty Social History (Updated 02/12/23 @ 16:[address] Temitope Son DO) household members: family housing: house Smoking Status: Current every day smoker tobacco type: cigarettes alcohol intake: never substance use type: does not use EXAM Physical Exam Const Vital Signs: 04/24/24 17:26 Temperature 98.6 F Temperature Source Oral Pulse Rate 78 Respiratory Rate 16 Blood Pressure 132/62 H Blood Pressure Mean 85 Pulse Ox 98 Oxygen Delivery Method Room Air [facility] Narrative Medical decision making narrative: HISTORY OF PRESENT ILLNESS: 73-year-old male presents with nosebleed. Notes he has seen ENT had cauterization this week. States began to bleed limit last night and more today. REVIEW OF SYSTEMS: Pertinent positives: Epistaxis Pertinent negatives: Syncope, lightheadedness PHYSICAL EXAM: Nursing triage notes reviewed, Vital signs reviewed Constitutional: please see [facility] HENT: MMM, taxis noted from right nares. Eyes: Pupils equal round and reactive to light, Extraocular muscles intact Neck: No stridor, no JVD, full neck ROM Lungs: Clear to auscultation, No wheezing or rales. No increased work of breathing, no conversational dyspnea, no accessory muscle use, no nasal flaring. No respiratory distress noted Heart: Regular rate and rhythm, No murmurs, No rubs and No gallops, 2+ distal pulses (radial, femoral, posterior tibial) in all extremities MEDICAL DECISION MAKING: Chief Complaint: Epistaxis External records reviewed: Could not find ENT records upon record review Factors affecting care: PAD, malnutrition, COPD Social determinants of health: none History obtained from others: none Consults: ENT Dr. Fuchs [facility] Narrative: Patient was hemodynamically stable, afebrile, nontoxic-appearing. Exam with active epistaxis right nares. Initiated epistaxis algorithm. Started with pressure. This seemed to improve bleeding. Patient was still oozing slightly so I placed a let impregnated cotton ball in the patient's right nares. Upon reassessment patient continued bleeding. I then used Afrin and placed a Rhino Rocket in the right nares. This helped with hemostasis. The patient was still oozing around the Rhino Rocket psych consult to ENT. Spoke to Dr. Segura. Dr. Segura came in to pack the patient's nose. After Merocel packing patient had complete hemostasis. He is appropriate discharge home. Instructions to leave packing in for only 3 days. Further instructions to follow-up with ENT in the next 1 to 2 days. The patient and/or family, caregivers express understanding. The patient and/or family, caregivers agrees with the plan. Shared decision making: I will have a discussion with the patient and or visitors regarding risk/benefits of further testing or admission. They will be made aware of of the risk/benefits inherent in this decision they will be given the opportunity to voice understanding. Total critical care time today provided was at least 0 minutes. This excludes separately billable procedures. Critical care time (if documented) is secondary to the patient having high probability of clinically significant/life threatening deterioration in the patient's condition which required my urgent intervention. Impression: 1. Epistaxis 2. History of heart disease 3. History of antiplatelet therapy Dispo: Discharge home This note was generated with [employer] dictation software. It may contain incorrect words, spelling, and punctuation that were not noted in review of the chart prior to signing. Discharge Plan Triage Chief Complaint: Nosebleed ED Provider: Agustin Quinones Dx/Rx/DC Orders Clinical Impression: Epistaxis Instructions: Nosebleed Prescriptions: No Action pantoprazole 40 mg Tablet,Delayed Release (Dr/Ec) 40 mg PO BID 30 Days Qty: 60 0RF cholecalciferol (vitamin D3) [Vitamin D3] 25 mcg (1,000 unit) capsule 25 mcg PO DAILY ipratropium-albuterol 0.5 mg-3 mg(2.5 mg base)/3 mL Solution For Nebulization 3 ml inhalation 4XD Qty: 0 0RF dronabinol 2.5 mg Capsule 2.5 mg PO BIDAC Qty: 60 0RF aspirin 81 mg Tablet,Chewable 81 mg PO BREAKFAST Qty: 0 0RF clopidogrel [Plavix] 75 mg tablet 75 mg PO DAILY Qty: 30 0RF mirtazapine [Remeron] 15 mg tablet 15 mg PO DAILY Qty: 30 0RF rosuvastatin 20 mg tablet 20 mg PO DAILY Qty: 1 0RF Primary Care Provider: Dom Chaidez Referrals: Nish Peralta MD [Med Staff - Courtesy Staff] - Pb Peralta MD [Med Staff - Active Staff] - Activity Restrictions/Additional Instructions: Thank you for trusting us with your care today! Please take Tylenol (2 pills, 650 mg) control. Please return to the emergency department if your symptoms change or worsen. Please follow with your primary care physician for further outpatient evaluation and management. Print Language: Tajik Disposition Disposition: Home, Self Care
[2024-04-24] MEDS: Lidocaine/Epi/Tetracaine 50 ML 1 APPLIC TOPICAL (17:58)
[2024-04-24] MEDS: Oxymetazoline 0.05% 1 SPRAY SPRAY.BTL NASAL (17:59)
--- NOTE | 2024-04-24 19:49 | PCM.CONS.GEN ---
Assessment & Plan Assessment/Plan (1) Epistaxis: PLAN: Plan 73 year old male on plavix for LE PVD -rhino rocket removed, merocel placed. -f/u at [facility] next week (very established patient) HPI Consult Data Date of Consult: 04/24/24 HPI Narrative Reason for Consultation: epistaxis HPI Narrative: RYAN ESCOBAR, is a 73 M who presents with epistaxis. he is on plavix for PVD, s/p numerous revascularization procedures. [facility] Medical History (Updated 04/24/24 @ 19:[address] Galdino Segura MD) Incidental pulmonary nodule, less than or equal to 3mm Acute respiratory failure with hypoxemia Chronic bullous emphysema COPD exacerbation Hard of hearing Wears eyeglasses Alcohol abuse Hypoglycemia High cholesterol Neuropathy Head injury Passed out Heartburn Smoker COPD (chronic obstructive pulmonary disease) Shortness of breath Leg pain Leg cramps Edema History of stress test Osteoporosis Peripheral arterial occlusive disease Back pain HTN (hypertension) PAOD (peripheral arterial occlusive disease) Home Medications ?Medication ?Instructions ?Recorded ?Last Taken ?Type pantoprazole 40 mg tablet,delayed 40 mg PO BID ACID REFLUX 30 days 01/22/23 02/07/23 Rx release #60 tabs cholecalciferol (vitamin D3) 25 25 mcg PO DAILY SUPPLEMENT 02/12/23 02/07/23 History mcg (1,000 unit) capsule (Vitamin D3) aspirin 81 mg chewable tablet 81 mg PO BREAKFAST #0 tabs 02/25/23 Unknown Rx clopidogrel 75 mg tablet (Plavix) 75 mg PO DAILY #30 tabs 02/25/23 Unknown Rx dronabinol 2.5 mg capsule 2.5 mg PO BIDAC #60 caps 02/25/23 Unknown Rx ipratropium 0.5 mg-albuterol 3 mg 3 ml inhalation 4XD #0 mL 02/25/23 Unknown Rx (2.5 mg base)/3 mL nebulization soln mirtazapine 15 mg tablet (Remeron) 15 mg PO DAILY #30 tabs 02/25/23 Unknown Rx rosuvastatin 20 mg tablet 20 mg PO DAILY CHOLESTEROL #1 TAB 02/25/23 02/07/23 Rx Allergy/AdvReac Type Severity Reaction Status Date / Time ciprofloxacin HCl (From Allergy Severe Nausea Verified 07/24/23 19:55 Cipro) Family History Father Hypertension Cancer lung Other Osteoporosis Surgical History H/O esophagogastroduodenoscopy Hx of right cataract extraction Hx of left cataract extraction Hx of colonoscopy Status post peripheral artery angioplasty Social History (Updated 02/12/23 @ 16:[address] Temitope Son, DO) household members: family housing: house Smoking Status: Current every day smoker tobacco type: cigarettes alcohol intake: never substance use type: does not use ROS Constitutional Constitutional: Reports systems reviewed and no addt'l complaints, except as documented Physical Exam Const alert and oriented x3 General Appearance: cooperative Orientation / Consciousness: awake Exam Limitations: no limitations HEENT normocephalic HEENT Narrative: right rhino rocket in 2cm. no current bleeding. Head and Scalp: normal to inspection Face and Sinus: normal facial exam
[2024-04-24 20:35] VITALS: BP 135/73; PULSE 71; RESP 16; TEMP 37; O2SAT 98
== END 2024-04-24 20:42 | disposition home or self-care (01) ==
PROVIDERS: Emergency Provider Emergency Medicine; PCP Family Medicine; Visit Provider Emergency Medicine
DX: R04.0 Epistaxis (principal); J43.9 Emphysema, unspecified; F17.210 Nicotine dependence, cigarettes, uncomplicated; E78.00 Pure hypercholesterolemia, unspecified; E46 Unspecified protein-calorie malnutrition; I10 Essential (primary) hypertension; Z79.02 Long term (current) use of antithrombotics/antiplatelets; I73.9 Peripheral vascular disease, unspecified
CPT/HCPCS: 30905; 30901; 99282; A4216

== ENCOUNTER → 2024-05-06 | Outpatient (CLI) | payer MEDICARE, OTHER, SELFPAY ==
--- NOTE | 2024-05-06 14:05 | CT_ITS ---
STUDY: LOW DOSE CT LUNG CANCER SCREENING REASON FOR EXAM: Male, 73 years old. Personal history of nicotine dependence. Current smoker. RADIATION DOSAGE (If Supplied By Facility): CTDIvol = ( 3.02 ) mGy, DLP = ( 111.36 ) mGycm TECHNIQUE: No contrast was administered. Low dose technique was utilized (average mAS-38 and kVp 120). 1.25 mm axial source images with a slice interval of 1.25-mm were reconstructed in lung windows. 2.5 mm axial source images with a slice interval of 2.5-mm were reconstructed in lung windows. 5.0 mm axial source images with a slice interval of 5.0-mm were reconstructed in soft tissue windows. COMPARISON: Comparison is made with prior study dated April 21, 2023. NODULES: No suspicious nodules are seen. Emphysema: Hyperinflation. Diffuse emphysematous changes worse in the upper lobes with bullous formation. The previously seen right lower lung infiltrate has improved. Residual linear changes persist most likely representing postinflammatory scarring. No suspicious nodules are seen. Endobronchial lesion: None Aorta: Atherosclerotic plaque formation of the aortic arch. CORONARY ARTERIES: Coronary artery calcification is seen. Heart: Unremarkable Pulmonary artery: Unremarkable Mediastinal nodes: Unremarkable Other chest and abdominal findings: CT/Low Dose CT Lung Screening IMPRESSION: Lung-RADS category 2 - Continue annual screening with LDCT in 12 months. IMPORTANT NOTES FOR USE: ACR Lung-RADS Version 1.1 Assessment Categories Release Date: 2018 Category: Coded 0-4 bases on nodule(s) with highest degree of suspicion. Negative screen is defined as categories 1 and 2; a positive screen is defined as categories 3 and 4. Category 3 and 4A nodules that are unchanged on interval CT should be coded as category 2, and individuals returned to screening in 12 months. Category 4X: Category 3 or 4 nodules with additional imaging findings that increase the suspicion of lung cancer, such as spiculation, GGN that doubles in size in 1 year, enlarged lymph notes, etc. Category Modifiers: S (significant finding unrelated to lung cancer) Electronically Signed: Prasad Felton MD at 13:14 EST ,
== END | disposition home or self-care (01) ==
LOC: CT 14:05
PROVIDERS: PCP Family Medicine; Referring Provider Internal Medicine Pulmonary Disease; Visit Provider Internal Medicine Pulmonary Disease
DX: Z87.891 Personal history of nicotine dependence (principal)
CPT/HCPCS: 71271

== ENCOUNTER → 2024-06-23 | Outpatient (CLI) | payer MEDICARE, OTHER, SELFPAY ==
[2024-06-23 16:06] LABS: Absolute Lymphocyte Count 1.62 X10^3/uL (0.83-4.51); Absolute Neutrophil Count 5.3 X10^3/uL (2.0-7.7); Basophil# 0.08 X10^3/uL; Eosinophil# 0.47 X10^3/uL; Eosinophils% 5.7 % (0-5); Hematocrit 40.1 % (40-54); Hemoglobin 12.2 g/dL (13.0-16.5); Lymphocyte # 1.62 X10^3/ul (0.83-4.51); Lymphocyte % 19.7 % (19-41); Mean Corp Hgb Conc 30.4 g/dL (32-36); Mean Corpuscular Hgb 29.1 pg (27.0-32.0); Mean Corpuscular Volume 95.7 fL (80-94); Monocyte# 0.77 X10^3/uL; Monocyte% 9.3 % (0-10); NRBC Flagged by Analyzer 0 % (0-5); Neutrophil # 5.28 X10^3/uL (2.7-7.7); Neutrophil % 64.1 % (47-70); Platelet Count 206 K/mm3 (150-450); RBC Distribution Width CV 13.1 % (11.6-14.6); RBC Distribution Width SD 46.5 fl (35.1-43.9); Red Blood Count 4.19 M/mm3 (4.6-6.2); White Blood Count 8.2 K/mm3 (4.4-11.0)
[2024-06-23 16:41] LABS: Vitamin D,25 Hydroxy 59.3 ng/mL
[2024-06-23 17:04] LABS: ALB/GLOB Ratio 0.9 RATIO (0.9-2.4); AST(SGOT) 24 U/L (15-37); Alanine Aminotransfer ALT/SGPT 32 U/L (16-61); Albumin, Serum 3.4 g/dL (3.2-5.0); Alkaline Phosphatase 119 U/L (45-117); Anion Gap 3 (5-15); BUN 20 mg/dL (7-18); BUN/Creat Ratio 20.6 RATIO (10-20); Calcium,Total 8.9 mg/dL (8.5-10.1); Chloride 105 mmol/L (98-107); Cholesterol 133 mg/dL (200); Creatinine, Serum 0.97 mg/dL (0.70-1.30); EST Glomerular Filtration Rate 80 mL/min (>60); Est Glom Filt Rate - Afr Amer 97 mL/min (>60); Globulin 3.8 g/dL (2.2-4.2); Glucose 92 mg/dL (74-106); High Density Lipoprotein 80 mg/dL; Magnesium 2.2 mg/dL (1.6-2.6); Potassium 4.4 mmol/L (3.5-5.1); Protein, Total 7.2 g/dL (6.4-8.2); Sodium Level 139 mmol/L (136-145); Triglycerides 36 mg/dL; Very Low Density Lipoprotein 7 mg/dL (5-40)
[2024-06-23 19:33] LABS: Hemoglobin A1c 5.2 % (3.8-5.6)
== END | disposition home or self-care (01) ==
LOC: MFPLAB 12:24
PROVIDERS: PCP Family Medicine; Referring Provider Family Medicine; Visit Provider Family Medicine
DX: I10 Essential (primary) hypertension (principal); R73.02 Impaired glucose tolerance (oral); E78.5 Hyperlipidemia, unspecified; E55.9 Vitamin D deficiency, unspecified
CPT/HCPCS: 36415; 80053; 80061; 82306; 83036; 83735; 84443; 85025

== ENCOUNTER 2025-01-14 14:58 | Outpatient (CLI) | payer MEDICARE, OTHER, SELFPAY ==
[2025-01-14 17:46] LABS: Hematocrit 36.1 % (40-54); Hemoglobin 11.5 g/dL (13.0-16.5); Immature Granulocytes Count 0.020 X10^3/uL (0.0-0.0); Mean Corp Hgb Conc 31.9 g/dL (32-36); Mean Corpuscular Volume 90.0 fL (80-94); Mean Platelet Vol. 11.0 fl (6.2-12.0); NRBC Flagged by Analyzer 0 % (0-5); Platelet Count 238 K/mm3 (150-450); RBC Distribution Width CV 13.4 % (11.6-14.6); RBC Distribution Width SD 44.5 fl (35.1-43.9); Red Blood Count 4.01 M/mm3 (4.6-6.2); White Blood Count 8.4 K/mm3 (4.4-11.0)
[2025-01-14 18:45] LABS: AST(SGOT) 21 U/L (<=37); Alanine Aminotransfer ALT/SGPT 11 U/L (<=46); Albumin, Serum 4.0 g/dL (3.4-4.8); Alkaline Phosphatase 85 U/L (40-129); Anion Gap 15 (5-15); BUN 24 mg/dL (4-19); BUN/Creat Ratio 16.2 RATIO (10-20); Calcium,Total 9.5 mg/dL (7.6-11.0); Carbon Dioxide 23.9 mmol/L (21.0-32.0); Chloride 100 mmol/L (98-108); Cholesterol 127 mg/dL (<=200); Globulin 2.9 g/dL (2.2-4.2); Glucose 101 mg/dL (70-99); Low Density Lipoprotein Calc. 43 mg/dL; Magnesium 1.6 mg/dL (1.5-2.2); Potassium 4.0 mmol/L (3.3-5.1); Triglycerides 63 mg/dL; Very Low Density Lipoprotein 13 mg/dL (5-40); Vitamin D,25 Hydroxy 62.5 ng/mL (30-100); cholesterol:hdl ratio screen 1.78
[2025-01-20 16:25] LABS: Ferritin 90 ng/mL (37-417); Iron 65 ug/dL (65-175); Iron Binding Capacity,Total 265 ug/dL (250-450); Iron Binding Capacity,Unsat 200 ug/dL (228-428)
== END 2025-01-14 23:59 | disposition home or self-care (01) ==
LOC: MFPLAB 14:59
PROVIDERS: PCP Family Medicine; Referring Provider Family Medicine; Visit Provider Family Medicine
DX: E78.5 Hyperlipidemia, unspecified (principal); E55.9 Vitamin D deficiency, unspecified; I10 Essential (primary) hypertension; R73.02 Impaired glucose tolerance (oral); D64.9 Anemia, unspecified
CPT/HCPCS: 36415; 80053; 80061; 82306; 82728; 83036; 83540; 83550; 83735; 85025

== ENCOUNTER 2025-04-24 13:56 | Emergency (ER) | payer MEDICARE, OTHER, SELFPAY ==
[2025-04-24 14:01] VITALS: BP 165/80; PULSE 92; RESP 24; TEMP 36.6; O2SAT 89
--- NOTE | 2025-04-24 14:05 | EX.ED.DYSGE1 ---
HPI History of Present Illness Chief Complaint: Nosebleed Informant: patient and EMS Narrative Narrative: Hospice patient presenting from home because of a right sided spontaneous nosebleed that started 3 hours ago and he and hospice providers are unable to get it to stop despite placing tampons in his right nose. He swallowing some blood but the majority of his coming out the right side, not on the left. He denies any systemic symptoms but he is having a little trouble breathing due to problems breathing through part of his nose. No vomiting. No near-syncope or syncope. No chest heaviness. [facility] Medical History Incidental pulmonary nodule, less than or equal to 3mm Acute respiratory failure with hypoxemia Chronic bullous emphysema COPD exacerbation Hard of hearing Wears eyeglasses Alcohol abuse Hypoglycemia High cholesterol Neuropathy Head injury Passed out Heartburn Smoker COPD (chronic obstructive pulmonary disease) Shortness of breath Leg pain Leg cramps Edema History of stress test Osteoporosis Peripheral arterial occlusive disease Back pain HTN (hypertension) PAOD (peripheral arterial occlusive disease) Home Medications ?Medication ?Instructions ?Recorded ?Last Taken ?Type cholecalciferol (vitamin D3) 25 25 mcg PO DAILY SUPPLEMENT 02/12/23 04/24/25 History mcg (1,000 unit) capsule (Vitamin D3) aspirin 81 mg chewable tablet 81 mg PO BREAKFAST #0 tabs 02/25/23 Unknown Rx clopidogrel 75 mg tablet (Plavix) 75 mg PO DAILY #30 tabs 02/25/23 04/24/25 Rx mirtazapine 15 mg tablet (Remeron) 15 mg PO DAILY #30 tabs 02/25/23 04/24/25 Rx rosuvastatin 20 mg tablet 20 mg PO DAILY CHOLESTEROL #1 TAB 02/25/23 04/24/25 Rx amlodipine 10 mg tablet 10 mg PO DAILY 04/24/25 04/24/25 History ferrous sulfate 325 mg (65 mg 325 mg PO DAILY 04/24/25 04/24/25 History iron) tablet,delayed release omeprazole 20 mg tablet,delayed 20 mg PO DAILY GERD 04/24/25 04/24/25 History release valsartan 80 mg tablet 80 mg PO DAILY 04/24/25 04/24/25 History Allergy/AdvReac Type Severity Reaction Status Date / Time ciprofloxacin HCl (From Allergy Severe Nausea Verified 04/24/25 14:30 Cipro) Family History Father Hypertension Cancer lung Other Osteoporosis Surgical History H/O esophagogastroduodenoscopy Hx of right cataract extraction Hx of left cataract extraction Hx of colonoscopy Status post peripheral artery angioplasty Social History household members: family housing: house Smoking Status: Current every day smoker tobacco type: cigarettes alcohol intake: never substance use type: does not use EXAM Physical Exam Const Vital Signs: 04/24/25 14:01 Temperature 97.9 F Temperature Source Oral Pulse Rate 92 Respiratory Rate 24 H Blood Pressure 165/80 H Blood Pressure Mean 108 Pulse Ox 89 Oxygen Delivery Method Nasal Cannula Oxygen Flow Rate (L/min) 4 MDM MDM MDM Narrative Medical decision making narrative: Patient first was managed after we had Fabian mix at the bedside, by removing the cloth that was within the patient's right naris, the left side appeared clear and the posterior pharynx appeared clear showing no acute bleeding down the oropharynx prior to doing this. I was then able to have the patient evacuate his nares with some tissues, blowing air through the right side we instilled via atomizer 2 cc of this mix, followed by placing a not inflatable 5.5 cm rapid Rhino. He with observation he continued to have bleeding, I think probably because the bleeding looked very anterior. Since he was continuing to bleed this is not amenable to cauterization, so I then placed an inflatable rapid Rhino there and we pulled it out a little bit so that it was sitting throughout the anterior aspect of the vestibule, and with a cc of sterile saline this provided good hemostasis. Patient was uncomfortable first and tolerated it well. We observed him for another 45 minutes he had no further bleeding and stable for discharge home given appropriate instructions to have the packing removed. Procedures Other Procedures Procedure(s): Epistaxis management: See above Discharge Plan Triage Chief Complaint: Nosebleed ED Provider: Crow Monteiro Dx/Rx/DC Orders Clinical Impression: Acute anterior epistaxis, Chronic hypoxic respiratory failure, COPD (chronic obstructive pulmonary disease) Instructions: ED Epistaxis (Adult) Prescriptions: No Action cholecalciferol (vitamin D3) [Vitamin D3] 25 mcg (1,000 unit) capsule 25 mcg PO DAILY aspirin 81 mg Tablet,Chewable 81 mg PO BREAKFAST Qty: 0 0RF clopidogrel [Plavix] 75 mg tablet 75 mg PO DAILY Qty: 30 0RF mirtazapine [Remeron] 15 mg tablet 15 mg PO DAILY Qty: 30 0RF rosuvastatin 20 mg tablet 20 mg PO DAILY Qty: 1 0RF valsartan 80 mg tablet 80 mg PO DAILY amlodipine 10 mg tablet 10 mg PO DAILY omeprazole 20 mg tablet,delayed release (DR/EC) 20 mg PO DAILY ferrous sulfate 325 mg (65 mg iron) tablet,delayed release (DR/EC) 325 mg PO DAILY Primary Care Provider: Dom Chaidez Referrals: Dom Chaidez MD [Primary Care Provider, [facility]] Activity Restrictions/Additional Instructions: Packing should stay in for at least 48 hours, we recommend 3 days given the fact that he is taking clopidogrel. He can then be removed, preparing for the possibility that bleeding may restart and may need to be acutely managed, which can certainly be done in the ED again if needed. To remove the packing, a standard 10 cc syringe can be used to attached to the port and with suctioning remove the approximately 8 cc of sterile saline that is within it. If there is recurrent bleeding before removal of the packing, another 2 cc of saline may be placed within the balloon to inflated further. Continue your aspirin and clopidogrel as usual. Print Language: Armenian Disposition Disposition: Home, Self Care
[2025-04-24] MEDS: Mixture 30 ML Bottle TOPICAL (14:07)
--- OUTSIDE RECORDS SUMMARY | 2025-04-24 14:17 | XMS RPT_ITS | CCD ---
Author Organization [facility] Care Team Providers Care Safety Physician Name Role Phone SYLVIA COBB DO Primary Care Physician [phone] BLANCHE CONTRACT CLERK AUTOMOBILE-NAHUM, NIMA Primary Care Physician [phone] BLANCHE MCARTHUR-NAHUM, NIMA Primary Care Physician [phone] BLANCHE, NIMA Attending Unavailable BALTES, NIMA Primary Care Unavailable BALTES, NIMA Attending Unavailable BALTES, NIMA Primary Care Unavailable BLANCHE, NIMA Attending Unavailable SYLVIA COBB DO Primary Care Unavailable Dr. Sylvia Cobb Primary Care Provider [phone] Dr. Sylvia Cobb Referring Provider [phone] Dr. Enoc Grubbs Attending Provider [phone] Biedenharn PA, PA Lucy Referring Provider [phone] Biedenhrandolphn PA, PA Lucy Other Provider Dr. Quoc Hilario Attending Provider [phone] Biedenharn PA, PA Lucy Referring Provider [phone] Dr. Enoc Grubbs Referring Provider [phone] Dr. Enoc Grubbs Other Provider Dr. Dom Chaidez Primary Care Provider [phone] Dr. Sylvia Cobb Primary Care Provider [phone] Dr. Sylvia Cobb Referring Provider [phone] Dr. Enoc Grubbs Attending Provider [phone] Biedenharn PA, PA Lucy Referring Provider [phone] Biedenharn PA, PA Lucy Other Provider Dr. Quoc Hilario Attending Provider Dr. Enoc Grubbs Referring Provider Dr. Enoc Grubbs Other Provider Dr. Dom Chaidez Primary Care Provider Dr. Janell Pepe Attending Provider Dr. Jono Robles Referring Provider Dr. Enoc Grubbs Admit Provider iLttle TORRES, MELISSA Ayala Attending Provider Dr. Franco Collins Other Provider Dr. Lizzy Meza Attending Provider Dr. Sukhi Alfredo Attending Provider Dr. Sukhi Alfredo Other Provider Dr. Huy Gonzalez Attending Provider 1([facility])[phone] Dr. Huy Gonzalez Other Provider Dr. Mitzi Mccormack Other Provider 1([facility])[phone] Sylvia Cobb Primary Care Provider 1([facility])[phone] Dr. Sylvia Cobb Referring Provider 1([facility])[phone] Dr. Enoc Grubbs Attending Provider 1([facility])-[phone] Huy Gonzalez Other Provider 1([facility])[phone] Mitzi Mccormack Other Provider 1([facility])[phone] Mitzi Mccormack Attending Provider Dr. Dom Chaidez Referring Provider Jayme [employer] FORMER SUPERVISOR, [employer] FORMER SUPERVISOR-C Airam Mullen Attending Provider Dr. Dom Chaidez Primary Care Provider [phone] Dr. Enoc Grubbs Attending Provider [phone] Enoc Grubbs Referring Provider [phone] Enoc Grubbs Other Provider MELISSA Fitch Attending Provider Dr. Dom Chaidez Primary Care Provider 1([facility] )[phone] Dr. Enoc Grubbs Attending Provider 1([facility])-[phone] Enoc Grubbs Referring Provider 1([facility])-[phone] MELISSA Fitch Referring Provider Dr. Dom Chaidez Primary Care Provider 1([facility] )[phone] Dr. Enoc Grubbs Attending Provider 1([facility])-[phone] Kimberly Cowart Emergency Provider 1([facility])[phone] Lizzy Meza Admit Provider Dr. Lizzy Meza Other Provider Dr. Franco Collins Other Provider Dr. Hugh Ferrer Other Provider Dr. Huy Gonzalez Other Provider 1([facility])[phone] Nikolas Bernstein Other Provider Unavailab omer Cisneros [employer]S FORMER SUPERVISOR, TOY PARTS FORMER SUPERVISOR-C Shelia Other Provider Dr. Jorge Luis Williamson Attending Provider 1([facility])[phone] Hugh Ferrer Attending Provider 1([facility])[phone] Lizzy Meza Attending Provider 1([facility])[phone] Otoniel Prasad Attending Provider Dr. Otoniel Prasad Other Provider 1([facility])[phone] MELISSA Negrete Referring Provider 1([facility])-[phone] Dom Chaidez Primary Care Provider 1([facility] )[phone] Dr. Otoniel Prasad Referring Provider Dr. Temitope Son Admit Provider Dr. Temitope Son Attending Provider 1([facility])[phone] Temitope Son Other Provider Dr. Sukhi Alfredo Attending Provider Dr. Sukhi Alfredo Other Provider 1([facility])[phone] Dr. Edward Elizabeth Attending Provider Dr. Edward Elizabeth Other Provider Dr. Dom Chaidez Primary Care Provider Dr. Kimberly Cowart Emergency Provider Dr. Lizzy Meza Admit Provider Dr. Lizzy Meza Other Provider Dr. Franco Collins Other Provider Dr. Hugh Ferrer Other Provider Dr. Huy Gonzalez Other Provider Dr. Nikolas Bernstein Other Provider Unavailab omer Cisneros [employer] FORMER SUPERVISOR, TOY [employer]S FORMER SUPERVISOR-C Shelia Other Provider Dr. Jorge Luis Williamson Attending Provider Dr. Otoniel Prasad Referring Provider Dr. Hugh Ferrer Attending Provider 1([facility])[phone] Lizzy Meza Attending Provider Dr. Otoniel Prasad Attending Provider Dr. Otoniel Prasad Other Provider Dr. Temitope Son Admit Provider Dr. Temitope Son Attending Provider Dr. Temitope Son Other Provider Dr. Sukhi Alfredo Attending Provider Dr. Sukhi Alfredo Other Provider Dr. Edward Eilzabeth Attending Provider Dr. Edward Elizabeth Other Provider Dr. Dom Chaidez MD Primary Care Provider Dr. Dom Chaidez MD Attending Provider Dr. Dom Chaidez MD Referring Provider [phone] Goldy Rain V Attending Unavailable Goldy Rain V Referring Unavailable Dom Chaidez Primary Care Unavailable Agustin Quinones Attending Unavailable Dom Chaidez Primary Care Unavailable Dom Chaidez Primary Care Unavailable Kimberly Cowart Attending Unavailable Kimberly Cowart Referring Unavailable Dom Chaidez Referring Unavailable Dom Chaidez Primary Care Unavailable Dom Chaidez Attending Unavailable Dom Chaidez Referring Unavailable Dom Chaidez Primary Care Unavailable Dom Chaidez Attending Unavailable Allergies Allergy Classification Reported Allergen(s) Allergy Type Date of Onset Reaction(s) Facility (3 sources) Ciprofloxacin; Translations: [ciprofloxacin] Drug Allergy [facility] (19 sources) Ciprofloxacin; Translations: [ciprofloxacin HCl] Drug Allergy 05-02-2022 [facility] Medications Current Medications Medication Drug Class(es) Dates Sig (Normalized) Sig (Original) albuterol 0.833 mg/ml / ipratropium bromide 0.167 mg/ml inhalation solution (7 sources) Anticholinergic, beta2-Adrenergic Agonist Start: 02-25-2023 take 1 mL by inhalation four times daily Ipratropium-Albuter ol 0.5 mg-3 mg(2.5 mg base)/3 mL Solution For Nebulization Active 3 mL INHALATION 4 times daily 0 February 25, 2023 12:00am Start: 02-25-2023 take 1 mL by inhalat ion four times daily Ipratropium-Albuterol Active 3 ML INHALATION 4 times daily 0 February 24, 2023 11:00pm aspirin 81 mg chewable tablet (20 sources) Platelet Aggregation Inhibitor, Nonsteroidal Anti-inflammatory Drug Start: 02-25-2023 take 1 tablet by mouth at breakfast Aspirin 81 mg Tablet,Chewable Active 81 mg PO WITH BREAKFAST 0 0 February 25, 2023 12:00am Start: 05-02-2022 End: 02-12-2023 Aspirin (Adult Low Dose Aspi rin) 81 mg tablet,delayed release (DR/EC) Discontinued 81 mg PO DAILY May 02, 2022 1:00am February 12, 2023 3:16pm SUPPLEMENT Start: 03-21-2022 aspirin 81 mg oral delayed release tablet Dose : 81 mg = 1 tab(s), Oral, Daily, # 90 tab(s), 3 Refill(s), Pharmacy: [facility]/pharmacy #[id number], Peripheral vascular disease, 160, cm, 03/21/22 8:53:00 EDT, Height Start Date: 03/21/22 Status: Ordered atorvastatin 80 mg oral tablet (3 sources) HMG-CoA Reductase Inhibitor Start: 05-02-2022 take 80 mg by mouth at bedtime Atorvastatin Active 80 MG PO AT BEDTIME 90 May 02, 2022 12:00am cholecalciferol 0.025 mg oral capsule (7 sources) Vitamin D Start: 02-12-2023 take 1 capsule by mouth once daily Cholecalciferol (Vitamin D3) (Vitamin D3) 25 mcg (1,000 unit) capsule Active 25 ug PO DAILY February 12, 2023 12:00am SUPPLEMENT clopidogrel 75 mg oral tablet (20 sources) [id number] Platelet Inhibitor Start: 02-25-2023 take 1 tablet by mouth once daily Clopidogrel (Plavix) 75 mg tablet Active 75 mg PO DAILY 30 0 February 25, 2023 12:00am Start: 08-03-2022 End: 01-22-2023 take 1 tablet by mouth once daily Clopidogrel 75 mg Tablet Discontinued 75 mg PO DAILY 90 3 August 03, 2022 12:00am January 22, 2023 11:11am Start: 06-20-2014 End: 06-09-2019 take 1 tablet by mouth once daily Clopidogrel 75 MG tablet Discontinued 75 mg PO DAILY June 20, 2014 1:00am June 09, 2019 2:17pm 24 hr dilTIAZem hydrochloride 180 mg extended release oral capsule (20 sources) Calcium Channel Robel Start: 02-05-2022 End: 05-06-2022 take 1 capsule by mouth every hour, then take 1 capsule by mouth once daily Dilt-XR 180 mg/24 hours oral capsule, extended release Dose : 180 mg = 1 cap(s), Oral, qDay, # 90 cap(s), 0 Refill(s), Pharmacy: [facility]/pharmacy #[id number], 157.5, cm, 09/18/21 10:13:00 EDT, Height, kg, 09/18/21 10:13:00 EDT, Dosing Weight Start Date: 02/05/22 Stop Date: 05/06/22 Status: Ordered Start: 09-04-2020 End: 08-30-2021 take 1 capsule by mouth every hour, then take 1 capsule by mouth once daily Dilt-XR 180 mg/24 hours oral capsule, extended release Dose : 180 mg = 1 cap(s), Oral, qDay, # 90 cap(s), 3 Refill(s), Pharmacy: [facility]/pharmacy #[id number], 160, cm, 09/04/20 10:29:00 EDT, Height, kg, 09/04/20 10:29:00 EDT, Dosing Weight Start Date: 09/04/20 Stop Date: 08/30/21 Status: Ordered Start: 06-20-2014 End: 01-22-2023 take 1 capsule by mouth once daily Diltiazem Hcl 180 MG capsule Discontinued 180 mg PO DAILY June 20, 2014 1:00am January 22, 2023 11:11am BP On Hold: Please follow-up with your PCP to monitor your BP and manage any further changes to your medications. dronabinol 2.5 mg oral capsule (7 sources) Cannabinoid Start: 02-25-2023 take 1 capsule by mouth twice daily before mealtime Dronabinol 2.5 mg Capsule Active 2.5 mg PO TWICE DAILY BEFORE MEALS 60 0 February 25, 2023 12:00am fluticasone propionate 0.05 mg/actuat metered dose nasal spray (3 sources) Corticosteroid Start: 10-24-2021 take 1 dose nasal route once daily in the morning Flonase 50 mcg/inh nasal spray Dose = 1 spray(s), Nostril, each, qAM, # 16 gram(s), 3 Refill(s), Pharmacy: [facility]/pharmacy #[id number], Nasal polyps, 157.5, cm, 09/18/21 10:13:00 EDT, Height, kg, 09/18/21 10:13:00 EDT, Dosing Weight Start Date: 10/24/21 Status: Ordered Start: 09-18-2021 End: 10-18-2021 take 1 dose nasal route once daily in the morning Flonase 50 mcg/inh nasal spray Dose = 1 spray(s), Nostril, each, qAM, # 16 gram(s), 0 Refill(s), Pharmacy: [facility]/pharmacy #[id number], Nasal polyps, 157.5, cm, 09/18/21 10:13:00 EDT, Height Start Date: 09/18/21 Stop Date: 10/18/21 Status: Ordered mirtazapine 15 mg oral tablet (7 sources) Start: 02-25-2023 take 1 tablet by mouth once daily Mirtazapine (Remeron) 15 mg tablet Active 15 mg PO DAILY 30 February 25, 2023 12:00am pantoprazole 40 mg delayed release oral tablet (20 sources) Proton Pump Inhibitor Start: 01-22-2023 take 1 tablet by mouth twice daily Pantoprazole 40 mg Tablet,Delayed Release (Dr/Ec) Active 40 mg PO TWICE A DAY 60 30 January 22, 2023 12:00am ACID REFLUX Start: 08-03-2022 End: 01-22-2023 take 1 tablet by mouth once daily Pantoprazole 40 mg tablet,delayed release (DR/EC) Discontinued 40 mg PO DAILY 90 August 26, 2022 1:13pm January 22, 2023 11:11am Vitamin D3 25 mcg (1000 intl units) oral capsule (2 sources) Start: 03-21-2022 End: 09-17-2022 Vitamin D3 25 mcg (1000 intl units) oral capsule Dose : 50 mcg = 2 cap(s), Oral, Daily, # 180 cap(s), 1 Refill(s), Pharmacy: [facility]/pharmacy #[id number], Vitamin D deficiency, 160, cm, 03/21/22 8:53:00 EDT, Height, kg, 03/21/22 8:53:00 EDT, Dosing Weight Start Date: 03/21/22 Stop Date: 09/17/22 Status: Ordered Completed/Discontinued Medications Medication Drug Class(es) Dates Sig (Normalized) Sig (Original) acetaminophen 325 mg / HYDROcodone bitartrate 5 mg oral tablet (18 sources) Opioid Agonist Start: 06-28-2014 End: 06-09-2019 Hydrocodone-Acetami nophen 1 TABLET tablet Discontinued 1 - 2 {tbl} PO EVERY 4 HOURS NEEDED as needed for PAIN June 28, 2014 1:00am June 09, 2019 2:17pm Start: 06-28-2014 End: 06-09-2019 take 1 tablet by mouth every four hours as needed Hydrocodone-Acetaminophen Discontinued 1 - 2 TABLET PO EVERY 4 HOURS NEEDED June 28, 2014 12:00am June 09, 2019 1:17pm [id number] 200 actuat albuterol 0.09 mg/actuat metered dose inhaler (13 sources) beta2-Adrenergic Agonist Start: 08-20-2022 End: 02-12-2023 Albuterol Sulfate 90 mcg/actuation HFA aerosol inhaler Discontinued 1 NMA INHALATION August 20, 2022 12:00am February 12, 2023 3:15pm Start: 08-20-2022 End: 02-12-2023 Albuterol Sulfate Discontinu ed 1 INH INHALATION August 19, 2022 11:00pm February 12, 2023 2:15pm albuterol MDI (90 mcg/inh) CFC free inhalation aerosol (3 sources) Start: 03-06-2020 End: 03-01-2021 take 2 puff(s) by inhalation every four hours albuterol MDI (90 mcg/inh) CFC free inhalation aerosol 2 puff(s), Inhalation, q4h, ok to fill generic equivalent rescue inhaler, # 1 EA, 11 Refill(s), Pharmacy: [facility]/pharmacy #[id number], 160, cm, 03/06/20 10:00:00 EDT, Height, kg, 03/06/20 10:00:00 EDT, Dosing Weight Start Date: 03/06/20 Stop Date: 03/01/21 Status: Ordered cilostazol 50 mg oral tablet (20 sources) Phosphodiesterase 3 Inhibitor Start: 07-15-2022 End: 02-12-2023 take 1 tablet by mouth once daily Cilostazol 50 mg tablet Discontinued 50 mg PO DAILY July 15, 2022 2:23pm February 12, 2023 3:16pm BONE Start: 05-02-2022 End: 07-15-2022 take 1 tablet by mouth twice daily Cilostazol 50 mg tablet Discontinued 0 .ROUTE .COMPLEX 60 2 May 28, 2022 10:04am July 15, 2022 2:23pm TAKE 1 TABLET BY MOUTH TWICE A DAY Start: 06-09-2019 End: 05-02-2022 take 1 tablet by mouth once daily Cilostazol 50 mg tablet Discontinued 50 mg PO DAILY June 09, 2019 1:00am May 02, 2022 10:49am 1 ml denosumab 60 mg/ml prefilled syringe (1 source) RANK Ligand Inhibitor Start: 03-28-2022 Prolia 60 mg/mL subcutaneous solution Dose : 60 mg = 1 mL, Subcutaneous, q6mo, # 1 mL, 0 Refill(s), Osteoporosis Start Date: 03/28/22 Status: Ordered docusate sodium 100 mg oral capsule (14 sources) Start: 08-03-2022 End: 08-26-2022 take 1 capsule by mouth once daily Docusate Sodium 100 mg Capsule Discontinued 100 mg PO DAILY 30 30 August 03, 2022 12:00am August 26, 2022 1:14pm doxycycline monohydrate 100 mg oral capsule (18 sources) Tetracycline-cla ss Drug Start: 01-18-2020 End: 05-02-2022 take 1 capsule by mouth twice daily Doxycycline Monohydrate 100 MG capsule Discontinued 100 mg PO TWICE A DAY 20 January 18, 2020 12:00am May 02, 2022 10:48am glucose 4000 mg chewable tablet (20 sources) Start: 01-18-2020 End: 02-25-2023 take 1 tablet by mouth once daily as needed Glucose 4 GM tablet,chewable Discontinued 4 g PO DAILY as needed for BLOOD SUGARS January 18, 2020 12:00am February 25, 2023 12:01pm Start: 11-24-2019 glucose See In structions, Once, 0 Refill(s) Start Date: 11/24/19 Status: Ordered 12 hr guaiFENesin 600 mg extended release oral tablet (14 sources) Start: 08-03-2022 End: 02-12-2023 take 1 tablet by mouth twice daily, then take 1 tablet by mouth every twelve hours Guaifenesin (Mucus Relief Er) 600 mg Tablet Extended Release 12hr Discontinued 600 mg PO TWICE A DAY 60 30 August 03, 2022 12:00am February 12, 2023 3:17pm hydroCHLOROthiazide 12.5 mg oral capsule (14 sources) Thiazide Diuretic Start: 08-03-2022 End: 08-20-2022 take 1 capsule by mouth once daily Hydrochlorothiazide 12.5 mg Capsule Discontinued 12.5 mg PO DAILY August 03, 2022 12:00am August 20, 2022 1:10pm hydroCHLOROthiazide 12.5 mg / valsartan 320 mg oral tablet (20 sources) Thiazide Diuretic, Angiotensin 2 Receptor Robel Start: 02-12-2023 End: 02-25-2023 Valsartan-Hydrochlorot hiazide 320-12.5 mg tablet Discontinued 1 {tbl} PO DAILY February 12, 2023 12:00am February 25, 2023 11:57am BLOOD PRESSURE Start: 08-20-2022 End: 01-22-2023 Valsartan-Hydrochlorothiazid e 320-12.5 mg tablet Discontinued 1 {tbl} PO DAILY August 20, 2022 12:00am January 22, 2023 11:12am Start: 06-20-2014 End: 08-03-2022 take 1 tablet by mouth once daily Valsartan-Hydrochlorothiazide 1 TABLET t ablet Discontinued 320 mg PO DAILY June 20, 2014 1:00am August 03, 2022 12:50pm BP losartan potassium 50 mg oral tablet (14 sources) Angiotensin 2 Receptor Robel Start: 08-03-2022 End: 08-20-2022 take 1 tablet by mouth once daily Losartan 50 mg Tablet Discontinued 50 mg PO DAILY 30 0 August 03, 2022 12:00am August 20, 2022 1:10pm oxyCODONE hydrochloride 5 mg oral tablet (14 sources) Opioid Agonist Start: 08-03-2022 End: 08-20-2022 take 1 tablet by mouth three times daily Oxycodone 5 mg Tablet Discontinued 5 mg PO THREE TIMES A DAY 9 3 0 August 03, 2022 August 20, 2022 1:10pm Postoperative pain Other acute postprocedural pain rivaroxaban 2.5 mg oral tablet (13 sources) Factor Xa Inhibitor Start: 09-03-2022 End: 02-12-2023 take 1 tablet by mouth twice daily Rivaroxaban (Xarelto) 2.5 mg tablet Discontinued 2.5 mg PO TWICE A DAY 60 5 September 03, 2022 12:00am February 12, 2023 3:16pm On Hold: Resume on 01/29/23. rosuvastatin calcium 10 mg oral tablet (20 sources) HMG-CoA Reductase Inhibitor Start: 01-18-2023 End: 01-22-2023 Rosuvastatin 10 mg tablet Discontinued mg January 18, 2023 12:00am January 22, 2023 11:12am Start: 01-18-2023 End: 01-22-2023 Rosuvastatin Discontinued MG January 17, 2023 11:00pm January 22, 2023 10:12am Start: 08-20-2022 End: 02-25-2023 take 1 tablet by mouth once daily Rosuvastatin 20 mg tablet Active 20 mg PO DAILY 1 February 25, 2023 3:47pm CHOLESTEROL Start: 07-15-2022 End: 08-20-2022 take 1 tablet by mouth at bedtime Rosuvastatin (Crestor) 10 mg Tablet Discontinued 10 mg PO AT BEDTIME July 15, 2022 1:00am August 20, 2022 1:12pm CHOLESTEROL sucralfate 1000 mg oral tablet (14 sources) Aluminum Complex Start: 08-03-2022 End: 08-26-2022 take 1 tablet by mouth 1 hour(s) before mealtime Sucralfate 1 gram Tablet Discontinued 1 g PO ONE HOURS BEFORE MEALS & BED 90 August 03, 2022 12:00am August 26, 2022 1:13pm tamsulosin hydrochloride 0.4 mg oral capsule (20 sources) alpha-Adrenergi c Robel Start: 08-03-2022 End: 02-12-2023 take 1 capsule by mouth once daily Tamsulosin 0.4 mg Capsule Discontinued 0.4 mg PO DAILY 30 30 August 03, 2022 12:00am February 12, 2023 3:17pm Start: 06-28-2014 End: 06-09-2019 take 1 capsule by mouth once daily Tamsulosin 0.4 MG capsule Discontinued 0.4 mg PO DAILY@2200 10 June 28, 2014 1:00am June 09, 2019 2:17pm 7 actuat umeclidinium 0.0625 mg/actuat / vilanterol 0.025 mg/actuat dry powder inhaler (14 sources) Anticholinergic, beta2-Adrenergic Agonist Start: 08-03-2022 End: 02-12-2023 Umeclidinium-Vilanterol (Anoro Ellipta) 62.5-25 mcg/actuation Blister With Device Discontinued 1 NMA INHALATION DAILY August 03, 2022 12:00am February 12, 2023 3:17pm Start: 08-03-2022 End: 02-12-2023 Umeclidinium-Vilanterol (Ano ro Ellipta) 62.5-25 mcg/actuation Blister With Device Discontinued 1 INH INHALATION DAILY August 02, 2022 11:00pm February 12, 2023 2:17pm Problems Active Problems Problem Classification Problem Date Documented Da te Episodic/Chronic Chronic kidney disease (3 sources) Chronic kidney disease stage 3 05-31-2019 Chronic Chronic obstructive pulmonary disease and bronchiectasis (20 sources) Chronic obstructive lung disease; Translations: [Chronic bullous emphysema] 09-04-2020 Chronic Conduction disorders (3 sources) First degree atrioventricular block 05-26-2019 Chronic Deficiency and other anemia (14 sources) Anemia; Translations: [Anemia, unspecified] 08-26-2022 Episodic Deficiency and other anemia (10 sources) Anemia, unspecified; Translations: [Anemia, unspecified] 08-26-2022 Episodic Diabetes mellitus without complication (3 sources) Prediabetes 12-20-2020 Episodic Diseases of white blood cells (11 sources) Leukocytosis; Translations: [Elevated white blood cell count, unspecified] 03-05-2023 Chronic Disorders of lipid metabolism (1 source) Hyperlipidemia, unspecified; Translations: [Hyperlipidemia, unspecified] Onset: Chronic Esophageal disorders (3 sources) Gastro-esophageal reflux disease with esophagitis 01-04-2019 Chronic Essential hypertension (4 sources) Hypertensive disorder; Translations: [Essential (primary) hypertension] Onset: 5 12-23-2014 Chronic Fluid and electrolyte disorders (20 sources) Lactic acidosis; Translations: [Lactic acidosis] 01-18-2023 Episodic Gastrointestinal hemorrhage (15 sources) Gastrointestinal hemorrhage; Translations: [Gastrointestinal hemorrhage, unspecified] 01-20-2023 Episodic Genitourinary symptoms and ill-defined conditions (3 sources) Nocturia 09-04-2020 Episodic Malaise and fatigue (6 sources) Fatigue; Translations: [Lack of energy] 09-04-2020 Episodic Nutritional deficiencies (14 sources) Vitamin D deficiency; 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] 01-04-2019 Chronic Osteoporosis (3 sources) Osteoporosis 12-15-2020 Chronic Other aftercare (11 sources) Surgical follow-up; Translations: [Encounter for surgical aftercare following surgery on the circulatory system] 10-23-2022 Episodic Other circulatory disease (20 sources) Peripheral arterial occlusive disease; Translations: [Disorder of arteries and arterioles, unspecified] 08-02-2019 Chronic Other circulatory disease (13 sources) History of insertion of iliac stent; Translations: [Presence of other vascular implants and grafts] Onset: 3 08-05-2022 Chronic Comment on above: rt common iliac lucrecia oplasty stent July 2022 Other circulatory disease (20 sources) History of arterial bypass of lower limb artery; Translations: [Presence of other vascular implants and grafts] Onset: 3 08-05-2022 Chronic Comment on above: above the knee,with reversed GSV July 2022 Other circulatory disease (3 sources) History of syncope 01-04-2019 Episodic Other circulatory disease (12 sources) Low blood pressure; Translations: [Hypotension, unspecified] 01-25-2020 Episodic Other circulatory disease (18 sources) History of peripheral vascular angioplasty; Translations: [Peripheral vascular angioplasty status] 05-02-2022 Episodic Comment on above: 2014 Other circulatory disease (6 sources) Hypotension, unspecified; Translations: [Hypotension, unspecified] 01-22-2023 Episodic Other connective tissue disease (11 sources) Swelling of left lower limb; Translations: [Other specified soft tissue disorders] 10-23-2022 Episodic Other endocrine disorders (3 sources) Hypoglycemia 01-04-2019 Chronic Other lower respiratory disease (14 sources) Solitary nodule of lung; Translations: [Solitary pulmonary nodule] 08-02-2022 Episodic Other lower respiratory disease (4 sources) Solitary pulmonary nodule; Translations: [Solitary pulmonary nodule] 08-03-2022 Episodic Other nervous system disorders (3 sources) Disorder of sleep-wake cycle 09-04-2020 Chronic Other non-epithelial cancer of skin (3 sources) Malignant neoplasm of skin of nose (external) 05-26-2019 Episodic Other screening for suspected conditions (not mental disorders or infectious disease) (3 sources) Viral screening status 12-08-2020 Episodic Other upper respiratory disease (2 sources) Bleeding from nose; Translations: [Epistaxis] 04-24-2024 Episodic Peripheral and visceral atherosclerosis (20 sources) Peripheral vascular disease; Translations: [Atherosclerosis of arteries of the extremities] 01-04-2019 Chronic Pneumonia (except that caused by tuberculosis or sexually transmitted disease) (11 sources) Pneumonia; Translations: [Pneumonia, unspecified organism] 03-05-2023 Episodic Residual codes; unclassified (3 sources) Immunization due 03-06-2020 Episodic Residual codes; unclassified (3 sources) Tobacco user 05-26-2019 Episodic Respiratory failure; insufficiency; arrest (adult) (11 sources) [id number] respiratory failure; Translations: [Acute and chronic respiratory failure with hypoxia] 03-05-2023 Chronic Respiratory failure; insufficiency; arrest (adult) (18 sources) Acute hypoxemic respiratory failure; Translations: [Acute respiratory failure with hypoxia] 08-02-2022 Episodic Screening and history of mental health and substance abuse codes (3 sources) Tobacco use and exposure - finding 12-08-2020 Chronic Unclassified (3 sources) Colon cancer screening declined 12-08-2020 Unclassified (3 sources) Medication refused 12-08-2020 Unclassified (12 sources) Patient encounter status 12-08-2020 Viral infection (11 sources) Disease caused by 2019-nCoV; Translations: [COVID-19] 03-05-2023 Episodic Past or Other Problems Problem Classification Problem Date Documented Da te Episodic/Chronic Other upper respiratory disease (1 source) Epistaxis; Translations: [Epistaxis] Onset: 04-24-2024 Episodic Screening and history of mental health and substance abuse codes (1 source) Personal history of nicotine dependence; Translations: [Personal history of nicotine dependence] Onset: 06-09-2024 Episodic Results Test Name Value Interpretation Reference Range Facility CBC W/Diff, Automatedon 09-0 Absolute Lymph 1.51 X10 3/uL Normal 0.83-4.51 [facility] Comment on above: Performed By: #### L 100.0100 #### [facility] [address] [place], [address] Absolute Neut 5.8 X10 3/uL Normal 2.0-7.7 [facility] Comment on above: Performed By: #### L 100.0100 #### [facility] [address] [place], [address] Basophils/100 WBC (Bld) 0.8 % Normal 0-1 [facility] Comment on above: Performed By: #### L 100.0100 #### [facility] [address] [place] [place], [address] Eosinophils/100 WBC (Bld) 3.5 % Normal 0-5 [facility] Comment on above: Performed By: #### L 100.0100 #### [facility] [address] [place], [address] Erythrocyte distribution width (RBC) [Ratio] 13.5 % Normal 11.6-14.6 [facility] Comment on above: Performed By: #### L 100.0100 #### [facility] [address] [place], [address] Hematocrit (Bld) [Volume fraction] 37.7 % Low 40-54 [facility] Comment on above: Performed By: #### L 100.0100 #### [facility] [address] [place], [address] Hemoglobin (Bld) [Mass/Vol] 12.1 g/dL Low 13.0-16.5 [facility] Comment on above: Performed By: #### L 100.0100 #### [facility] [address] [place], [address] IG% 0.400 Normal 0.0-0.9 [facility] Comment on above: Result Comment: IG% - Immature Granulocytes (promyelocytes, myelocytes and metamyelocytes) > 1% indicates that a LEFT SHIFT is Present. Performed By: #### L 100.0100 #### [facility] [address] [place], [address] Lymphocytes/100 WBC (Bld) 18.3 % Low 19-41 [facility] Comment on above: Performed By: #### L 100.0100 #### [facility] [address] [place], [address] MCH (RBC) [Entitic mass] 28.6 pg Normal 27.0-32.0 [facility] Comment on above: Performed By: #### L 100.0100 #### [facility] [address] [place], [address] MCHC (RBC) [Mass/Vol] 32.1 g/dL Normal 32-36 [facility] Comment on above: Performed By: #### L 100.0100 #### [facility] [address] [place], [address] MCV (RBC) [Entitic vol] 89.1 fL Normal 80-94 [facility] Comment on above: Performed By: #### L 100.0100 #### [facility] [address] [place], [address] Monocytes/100 WBC (Bld) 6.6 % Normal 0-10 [facility] Comment on above: Performed By: #### L 100.0100 #### [facility] [address] [place], [address] Neutrophils/100 WBC (Bld) 70.4 % High 47-70 [facility] Comment on above: Performed By: #### L 100.0100 #### [facility] [address] [place], [address] Nucleated RBC (Bld) [#/Vol] 0 10*3/uL Normal 0-5 [facility] Comment on above: Performed By: #### L 100.0100 #### [facility] [address] [place], [address] Platelet mean volume (Bld) [Entitic vol] 10.6 fL Normal 6.2-12.0 [facility] Comment on above: Performed By: #### L 100.0100 #### [facility] [address] [place], [address] Platelets (Bld) [#/Vol] 241 10*3/uL Normal 150-450 [facility] Comment on above: Performed By: #### L 100.0100 #### [facility] [address] [place], [address] RBC (Bld) [#/Vol] 4.23 10*6/uL Low 4.6-6.2 [facility] Comment on above: Performed By: #### L 100.0100 #### [facility] [address] [place], [address] RDW SD 44.2 fl High 35.1-43.9 [facility] Comment on above: Performed By: #### L 100.0100 #### [facility] [address] [place], [address] WBC (Bld) [#/Vol] 8.2 10*3/uL Normal 4.4-11.0 [facility] Comment on above: Performed By: #### L 100.0100 #### [facility] [address] [place], [address] Ferritinon 01-20-2025 Ferritin [Mass/Vol] 90 ng/mL Normal 37-417 [facility] Comment on above: Order Comment: BRETT Tang ADD ON IBC AND AUSTEN TO LABS DONE ON 01/14/25 Performed By: #### L 503.6030, L506.1001, L503.6550 ####[facility] [address] [place], [address] Iron+Iron Binding Capacityon 01-20-2025 Iron [Mass/Vol] 65 ug/dL Normal 65-175 [facility] Comment on above: Order Comment: BRETT Tang ADD ON IBC AND AUSTEN TO LABS DONE ON 01/14/25 Performed By: #### L 503.6030, L506.1001, L503.6550 ####[facility] [address] [place], [address] IRON SATURATION 25.0 Normal 9-55 [facility] Comment on above: Order Comment: BRETT Tang ADD ON IBC AND AUSTEN TO LABS DONE ON 01/14/25 Performed By: #### L 503.6030, L506.1001, L503.6550 ####[facility] [address] [place], [address] TIBC 265 ug/dL Normal 250-450 [facility] Comment on above: Order Comment: PLEAS E ADD ON IBC AND AUSTEN TO LABS DONE ON 01/14/25 Performed By: #### L 503.6030, L506.1001, L503.6550 ####[facility] [address] [place], [address] UIBC 200 ug/dL Low 228-428 [facility] Comment on above: Order Comment: PLEAS E ADD ON IBC AND AUSTEN TO LABS DONE ON 01/14/25 Performed By: #### L 503.6030, L506.1001, L503.6550 ####[facility] [address] [place], [address] Absolute lymphocyte countOrd ered By: Dom Chaidez on 01-14-2025 Lymphocytes Auto (Unsp spec) [#/Vol] 2.57 10*3/uL 0.83-4.51 [facility] Absolute neutrophil countOrd ered By: Dom Chaidez on 01-14-2025 Neutrophils (Bld) [#/Vol] 4.3 10*3/uL 2.0-7.7 [facility] Anion gap in Serum or Plasma Ordered By: Dom Chaidez on 01-14-2025 Anion gap [Moles/Vol] 15 mmol/L 5-15 [facility] Automated lymphocyte count a s percentage of total leukocytesOrdered By: Dom Chaidez on 01-14-2025 Lymphocytes/100 WBC Auto (Unsp spec) 30.7 % 19-41 [facility] BUN/creatinine ratioOrdered By: Dom Chaidez on 01-14-2025 Urea nitrogen/Creatinine [Mass ratio] 16.2 mg/mg 10-20 [facility] Basophil percentageOrdered B y: Dom Chaidez on 01-14-2025 Basophils/100 WBC (Bld) 0.8 % 0-1 [facility] Bilirubin, totalOrdered By: Dom Chaidez on 01-14-2025 Bilirubin [Mass/Vol] 0.41 mg/dL 0.00-1.30 [facility] CBC W/Diff, Automatedon 12-18 Absolute Lymph 2.57 X10 3/uL Normal 0.83-4.51 [facility] Comment on above: Order Comment: Order Date: 01/14/25Order Info: 018- - CBCD Performed By: #### L 100.0100, L501.9985, L501.5200, L500.4100, L500.4050 ####[facility] [address] [place], [address] Absolute Neut 4.3 X10 3/uL Normal 2.0-7.7 [facility] Comment on above: Order Comment: Order Date: 01/14/25Order Info: 183- - CBCD Performed By: #### L 100.0100, L501.9985, L501.5200, L500.4100, L500.4050 ####[facility] [address] [place], [address] Basophils/100 WBC (Bld) 0.8 % Normal 0-1 [facility] Comment on above: Order Comment: Order Date: 01/14/25Order Info: 018- - CBCD Performed By: #### L 100.0100, L501.9985, L501.5200, L500.4100, L500.4050 ####[facility] [address] [place], [address] Eosinophils/100 WBC (Bld) 7.2 % High 0-5 [facility] Comment on above: Order Comment: Order Date: 01/14/25Order Info: 018- - CBCD Performed By: #### L 100.0100, L501.9985, L501.5200, L500.4100, L500.4050 ####[facility] [address] [place], [address] Erythrocyte distribution width (RBC) [Ratio] 13.4 % Normal 11.6-14.6 [facility] Comment on above: Order Comment: Order Date: 01/14/25Order Info: 0184-1 - CBCD Performed By: #### L 100.0100, L501.9985, L501.5200, L500.4100, L500.4050 ####[facility] [address] [place], [address] Hematocrit (Bld) [Volume fraction] 36.1 % Low 40-54 [facility] Comment on above: Order Comment: Order Date: 01/14/25Order Info: 0184- - CBCD Performed By: #### L 100.0100, L501.9985, L501.5200, L500.4100, L500.4050 ####[facility] [address] [place], [address] Hemoglobin (Bld) [Mass/Vol] 11.5 g/dL Low 13.0-16.5 [facility] Comment on above: Order Comment: Order Date: 01/14/25Order Info: [id number] - CBCD Performed By: #### L 100.0100, L501.9985, L501.5200, L500.4100, L500.4050 ####[facility] [address] [place], [address] IG% 0.200 Normal 0.0-0.9 [facility] Comment on above: Order Comment: Order Date: 01/14/25Order Info: [id number] - CBCD Result Comment: IG% - Immature Granulocytes (promyelocytes, myelocytes and metamyelocytes) > 1% indicates that a LEFT SHIFT is Present. Performed By: #### L 100.0100, L501.9985, L501.5200, L500.4100, L500.4050 ####[facility] [address] [place], [address] Lymphocytes/100 WBC (Bld) 30.7 % Normal 19-41 [facility] Comment on above: Order Comment: Order Date: 01/14/25Order Info: 018- - CBCD Performed By: #### L 100.0100, L501.9985, L501.5200, L500.4100, L500.4050 ####[facility] [address] [place], [address] MCH (RBC) [Entitic mass] 28.7 pg Normal 27.0-32.0 [facility] Comment on above: Order Comment: Order Date: 01/14/25Order Info: 018- - CBCD Performed By: #### L 100.0100, L501.9985, L501.5200, L500.4100, L500.4050 ####[facility] [address] [place], [address] MCHC (RBC) [Mass/Vol] 31.9 g/dL Low 32-36 [facility] Comment on above: Order Comment: Order Date: 01/14/25Order Info: 018- - CBCD Performed By: #### L 100.0100, L501.9985, L501.5200, L500.4100, L500.4050 ####[facility] [address] [place], [address] MCV (RBC) [Entitic vol] 90.0 fL Normal 80-94 [facility] Comment on above: Order Comment: Order Date: 01/14/25Order Info: 018- - CBCD Performed By: #### L 100.0100, L501.9985, L501.5200, L500.4100, L500.4050 ####[facility] [address] [place], [address] Monocytes/100 WBC (Bld) 9.6 % Normal 0-10 [facility] Comment on above: Order Comment: Order Date: 01/14/25Order Info: 018- - CBCD Performed By: #### L 100.0100, L501.9985, L501.5200, L500.4100, L500.4050 ####[facility] [address] [place], [address] Neutrophils/100 WBC (Bld) 51.5 % Normal 47-70 [facility] Comment on above: Order Comment: Order Date: 01/14/25Order Info: 183- - CBCD Performed By: #### L 100.0100, L501.9985, L501.5200, L500.4100, L500.4050 ####[facility] [address] [place], [address] Nucleated RBC (Bld) [#/Vol] 0 10*3/uL Normal 0-5 [facility] Comment on above: Order Comment: Order Date: 01/14/25Order Info: 018- - CBCD Performed By: #### L 100.0100, L501.9985, L501.5200, L500.4100, L500.4050 ####[facility] [address] [place], [address] Platelet mean volume (Bld) [Entitic vol] 11.0 fL Normal 6.2-12.0 [facility] Comment on above: Order Comment: Order Date: 01/14/25Order Info: 018- - CBCD Performed By: #### L 100.0100, L501.9985, L501.5200, L500.4100, L500.4050 ####[facility] [address] [place], [address] Platelets (Bld) [#/Vol] 238 10*3/uL Normal 150-450 [facility] Comment on above: Order Comment: Order Date: 01/14/25Order Info: 183- - CBCD Performed By: #### L 100.0100, L501.9985, L501.5200, L500.4100, L500.4050 ####[facility] [address] [place], [address] RBC (Bld) [#/Vol] 4.01 10*6/uL Low 4.6-6.2 [facility] Comment on above: Order Comment: Order Date: 01/14/25Order Info: [id number] - CBCD Performed By: #### L 100.0100, L501.9985, L501.5200, L500.4100, L500.4050 ####[facility] [address] [place], [place], [address] RDW SD 44.5 fl High 35.1-43.9 [facility] Comment on above: Order Comment: Order Date: 01/14/25Order Info: [id number] - CBCD Performed By: #### L 100.0100, L501.9985, L501.5200, L500.4100, L500.4050 ####[facility] [address] [place], [place], [address] WBC (Bld) [#/Vol] 8.4 10*3/uL Normal 4.4-11.0 [facility] Comment on above: Order Comment: Order Date: 01/14/25Order Info: [id number] - CBCD Performed By: #### L 100.0100, L501.9985, L501.5200, L500.4100, L500.4050 ####[facility] [address] [place], [place], [address] Calculated very low density lipoprotein (VLDL) cholesterol measurementOrdered By: Dom Chaidez on 01-14-2025 Calculated very low density lipoprotein (VLDL) cholesterol measurement 13 mg/dL 5-40 [facility] Carbon dioxide, total [Moles /volume] in Central venous bloodOrdered By: Dom Chaidez on 01-14-2025 CO2 [Moles/Vol] 23.9 mmol/L 21.0-32.0 [facility] Chloride assayOrdered By: Lisa Chaidez on 01-14-2025 Chloride [Moles/Vol] 100 mmol/L 98-108 [facility] Comprehensive Metabolic Prof ilon 08-29-2025 Albumin [Mass/Vol] 4.0 g/dL Normal 3.4-4.8 [facility] Comment on above: Order Comment: Order Date: 01/14/25Order Info: [id number] - CMPOrder Info: [id number] - LIPIDOrder Info: [id number] - MG Performed By: #### L 100.0100, L501.9985, L501.5200, L500.4100, L500.4050 ####[facility] [address] [place], [address] Albumin/Globulin [Mass ratio] 1.4 {ratio} Normal 0.9-2.4 [facility] Comment on above: Order Comment: Order Date: 01/14/25Order Info: 07 - CMPOrder Info: [id number] - LIPIDOrder Info: [id number] - MG Performed By: #### L 100.0100, L501.9985, L501.5200, L500.4100, L500.4050 ####[facility] [address] [place], [address] ALK PHOS 85 U/L Normal 40-129 [facility] Comment on above: Order Comment: Order Date: 01/14/25Order Info: [id number] - CMPOrder Info: [id number] - LIPIDOrder Info: [id number] - MG Performed By: #### L 100.0100, L501.9985, L501.5200, L500.4100, L500.4050 ####[facility] [address] [place], [address] ALT [Catalytic activity/Vol] 11 U/L Normal <=46 [facility] Comment on above: Order Comment: Order Date: 01/14/25Order Info: 07- - CMPOrder Info: [id number] - LIPIDOrder Info: [id number] - MG Performed By: #### L 100.0100, L501.9985, L501.5200, L500.4100, L500.4050 ####[facility] [address] [place], [address] AST [Catalytic activity/Vol] 21 U/L Normal <=37 [facility] Comment on above: Order Comment: Order Date: 01/14/25Order Info: [id number] - CMPOrder Info: [id number] - LIPIDOrder Info: [id number] - MG Performed By: #### L 100.0100, L501.9985, L501.5200, L500.4100, L500.4050 ####[facility] [address] [place], [address] Bilirubin [Mass/Vol] 0.41 mg/dL Normal 0.00-1.30 [facility] Comment on above: Order Comment: Order Date: 01/14/25Order Info: [id number] - CMPOrder Info: [id number] - LIPIDOrder Info: [id number] - MG Performed By: #### L 100.0100, L501.9985, L501.5200, L500.4100, L500.4050 ####[facility] [address] [place], [address] BUN/CRE 16.2 RATIO Normal 10-20 [facility] Comment on above: Order Comment: Order Date: 01/14/25Order Info: 07-1 - CMPOrder Info: [id number] - LIPIDOrder Info: [id number] - MG Performed By: #### L 100.0100, L501.9985, L501.5200, L500.4100, L500.4050 ####[facility] [address] [place], [address] Calcium [Mass/Vol] 9.5 mg/dL Normal 7.6-11.0 [facility] Comment on above: Order Comment: Order Date: 01/14/25Order Info: [id number] - CMPOrder Info: [id number] - LIPIDOrder Info: [id number] - MG Performed By: #### L 100.0100, L501.9985, L501.5200, L500.4100, L500.4050 ####[facility] [address] [place], [address] Chloride [Moles/Vol] 100 mmol/L Normal 98-108 [facility] Comment on above: Order Comment: Order Date: 01/14/25Order Info: [id number] - CMPOrder Info: [id number] - LIPIDOrder Info: [id number] - MG Performed By: #### L 100.0100, L501.9985, L501.5200, L500.4100, L500.4050 ####[facility] [address] [place], [address] CO2 [Moles/Vol] 23.9 mmol/L Normal 21.0-32.0 [facility] Comment on above: Order Comment: Order Date: 01/14/25Order Info: 07-1 - CMPOrder Info: [id number] - LIPIDOrder Info: [id number] - MG Performed By: #### L 100.0100, L501.9985, L501.5200, L500.4100, L500.4050 ####[facility] [address] [place], [address] Creatinine [Mass/Vol] 1.49 mg/dL High 0.70-1.20 [facility] Comment on above: Order Comment: Order Date: 01/14/25Order Info: [id number] - CMPOrder Info: [id number] - LIPIDOrder Info: [id number] - MG Performed By: #### L 100.0100, L501.9985, L501.5200, L500.4100, L500.4050 ####[facility] [address] [place], [address] GAP 15 Normal 5-15 [facility] Comment on above: Order Comment: Order Date: 01/14/25Order Info: [id number] - CMPOrder Info: [id number] - LIPIDOrder Info: [id number] - MG Performed By: #### L 100.0100, L501.9985, L501.5200, L500.4100, L500.4050 ####[facility] [address] [place], [address] GFR/1.73 sq M.predicted among non-blacks MDRD (S/P/Bld) [Vol rate/Area] 49 mL/min/{1.73_m2} Low >60 [facility] Comment on above: Order Comment: Order Date: 01/14/25Order Info: [id number] - CMPOrder Info: [id number] - LIPIDOrder Info: [id number] - MG Result Comment: mL/m in/1.73m2 CKD-EPI Creatinine Equation (2020) Performed By: #### L 100.0100, L501.9985, L501.5200, L500.4100, L500.4050 ####[facility] [address] [place], [address] Globulin (S) [Mass/Vol] 2.9 g/dL Normal 2.2-4.2 [facility] Comment on above: Order Comment: Order Date: 01/14/25Order Info: [id number]- - CMPOrder Info: [id number] - LIPIDOrder Info: [id number] - MG Performed By: #### L 100.0100, L501.9985, L501.5200, L500.4100, L500.4050 ####[facility] [address] [place], [address] Glucose [Mass/Vol] 101 mg/dL High 70-99 [facility] Comment on above: Order Comment: Order Date: 01/14/25Order Info: 07-1 - CMPOrder Info: [id number] - LIPIDOrder Info: [id number] - MG Performed By: #### L 100.0100, L501.9985, L501.5200, L500.4100, L500.4050 ####[facility] [address] [place], [address] Potassium [Moles/Vol] 4.0 mmol/L Normal 3.3-5.1 [facility] Comment on above: Order Comment: Order Date: 01/14/25Order Info: 07-1 - CMPOrder Info: [id number] - LIPIDOrder Info: [id number] - MG Performed By: #### L 100.0100, L501.9985, L501.5200, L500.4100, L500.4050 ####[facility] [address] [place], [address] Sodium [Moles/Vol] 139 mmol/L Normal 133-145 [facility] Comment on above: Order Comment: Order Date: 01/14/25Order Info: 07 - CMPOrder Info: [id number] - LIPIDOrder Info: [id number] - MG Performed By: #### L 100.0100, L501.9985, L501.5200, L500.4100, L500.4050 ####[facility] [address] [place], [address] T PROT 7.0 g/dL Normal 5.9-8.4 [facility] Comment on above: Order Comment: Order Date: 01/14/25Order Info: [id number] - CMPOrder Info: [id number] - LIPIDOrder Info: [id number] - MG Performed By: #### L 100.0100, L501.9985, L501.5200, L500.4100, L500.4050 ####[facility] [address] [place], [address] Urea nitrogen [Mass/Vol] 24 mg/dL High 4-19 [facility] Comment on above: Order Comment: Order Date: 01/14/25Order Info: 07-1 - CMPOrder Info: [id number] - LIPIDOrder Info: - MG Performed By: #### L 100.0100, L501.9985, L501.5200, L500.4100, L500.4050 ####[facility] [address] [place], [place], [address] Eosinophil percentageOrdered By: Dom Chaidez on 01-14-2025 Eosinophils/100 WBC (Bld) 7.2 % High 0-5 [facility] Erythrocyte distribution wid th ratioOrdered By: Dom Chaidez on 01-14-2025 Erythrocyte distribution width (RBC) [Ratio] 13.4 % 11.6-14.6 [facility] Erythrocyte distribution wid th standard deviationOrdered By: Dom Chaidez on 01-14-2025 Erythrocyte distribution width (RBC) [Ratio] 44.5 fl High 35.1-43.9 [facility] Glomerular filtration rate ( GFR) estimation/1.73 sq m using serum, plasma, or whole bOrdered By: Dom Chaidez on 01-14-2025 GFR/1.73 sq M.predicted among non-blacks MDRD (S/P/Bld) [Vol rate/Area] 49 mL/min/{1.73_m2} Low >60 [facility] Comment on above: mL/min/1.73m2 CKD-EP I Creatinine Equation (2020) Hematocrit Auto (Bld) [Volum e fraction]Ordered By: Dom Chaidez on 01-14-2025 Hematocrit (Bld) [Volume fraction] 36.1 % Low 40-54 [facility] Hemoglobin A1con 01-14-2025 HbA1c (Bld) [Mass fraction] 5.5 % Normal <=5.6 [facility] Comment on above: Order Comment: Order Date: 01/14/25Order Info: [id number] - A1C Result Comment: Norm al < 5.7 % Prediabetic 5.7 - 6.4 % Diabetic >or= 6.5 % Please note range changes. Performed By: #### L 100.0100, L501.9985, L501.5200, L500.4100, L500.4050 ####[facility] [address] [place], [place], [address] Hemoglobin A1c percentageOrd ered By: Dom Chaidez on 01-14-2025 HbA1c (Bld) [Mass fraction] 5.5 % <5.7 [facility] Comment on above: Normal < 5.7 % Predi abetic 5.7 - 6.4 % Diabetic >or= 6.5 % Please note range changes. Hemoglobin measurementOrdere d By: Dom Chaidez on 01-14-2025 Hemoglobin (Bld) [Mass/Vol] 11.5 g/dL Low 13.0-16.5 [facility] Immature granulocytes/100 WB C Auto (Bld)Ordered By: Dom Chaidez on 01-14-2025 Immature granulocytes/100 WBC (Bld) 0.200 % 0.0-0.9 [facility] Comment on above: IG% - Immature Granu locytes (promyelocytes, myelocytes and metamyelocytes) > 1% indicates that a LEFT SHIFT is Present. LDL calc ser/plasOrdered By: Dom Chaidez on 01-14-2025 Cholesterol in LDL [Mass/Vol] 43 mg/dL [facility] Comment on above: Jyukrojwku=686-127 m g/dL & Higher Ajip=101 mg/dL or greaterFriedwald Equation for LDL-C Laboratory - Chemistry and C hemistry - challengeOrdered By: Dom Chaidez on 01-14-2025 AST [Catalytic activity/Vol] 21 U/L <38 [facility] Lipid Profileon 01-14-2025 CHOL:HDL 1.78 Normal [facility] Comment on above: Order Comment: Order Date: 01/14/25Order Info: [id number] - CMPOrder Info: [id number] - LIPIDOrder Info: [id number] - MG Performed By: #### L 100.0100, L501.9985, L501.5200, L500.4100, L500.4050 ####[facility] [address] [place], [place], [id number] Cholesterol [Mass/Vol] 127 mg/dL Normal <=200 [facility] Comment on above: Order Comment: Order Date: 01/14/25Order Info: [id number] - CMPOrder Info: [id number] - LIPIDOrder Info: [id number] - MG Result Comment: Chol esterol level, Desirable <200 mg/dL Borderline high cholesterol 200-239 mg/dL High cholesterol >=240 mg/dL Recommendations of the NCEP Adult Treatment Panel for the following risk-cutoff thresholds for the [place] population. Performed By: #### L 100.0100, L501.9985, L501.5200, L500.4100, L500.4050 ####[facility] [address] [place], [address] Cholesterol in HDL [Mass/Vol] 71 mg/dL Normal [facility] Comment on above: Order Comment: Order Date: 01/14/25Order Info: [id number] - CMPOrder Info: [id number] - LIPIDOrder Info: [id number] - MG Result Comment: Renu onal Cholesterol Education Program (NCEP) guidelines: <40 mg/dL: Low HDL-cholesterol (major risk factor for CHD) >= 60 mg/dL: High HDL-cholesterol (negative risk factor for CHD) HDL-cholesterol is affected by a number of factors, e.g. smoking, exercise, hormones, sex and age. Performed By: #### L 100.0100, L501.9985, L501.5200, L500.4100, L500.4050 ####[facility] [address] [place], [address] Cholesterol in LDL [Mass/Vol] 43 mg/dL Normal [facility] Comment on above: Order Comment: Order Date: 01/14/25Order Info: [id number] - CMPOrder Info: [id number] - LIPIDOrder Info: [id number] - MG Result Comment: Bord ttnucv=649-211 mg/dL Higher Qvol=087 mg/dL or greater Friedwald Equation for LDL-C Performed By: #### L 100.0100, L501.9985, L501.5200, L500.4100, L500.4050 ####[facility] [address] [place], [address] Cholesterol in VLDL [Mass/Vol] 13 mg/dL Normal 5-40 [facility] Comment on above: Order Comment: Order Date: 01/14/25Order Info: [id number] - CMPOrder Info: [id number] - LIPIDOrder Info: - MG Performed By: #### L 100.0100, L501.9985, L501.5200, L500.4100, L500.4050 ####[facility] [address] [place], [place], [id number] Triglyceride [Mass/Vol] 63 mg/dL Normal [facility] Comment on above: Order Comment: Order Date: 01/14/25Order Info: [id number] - CMPOrder Info: [id number] - LIPIDOrder Info: - MG Result Comment: The drugs N-Acetylcysteine and Metamizole may falsely depress this assay. Normal range: <150 mg/dL Borderline High: 150-199 mg/dL High: 200-499 mg/dL Very High: >500 mg/dL Performed By: #### L 100.0100, L501.9985, L501.5200, L500.4100, L500.4050 ####[facility] [address] [place], [place], [address] MCV (mean corpuscular volume ) determinationOrdered By: Dom Chaidez on 01-14-2025 MCV (RBC) [Entitic vol] 90.0 fL 80-94 [facility] Magnesiumon 01-14-2025 Magnesium [Mass/Vol] 1.6 mg/dL Normal 1.5-2.2 [facility] Comment on above: Order Comment: Order Date: 01/14/25Order Info: [id number] - CMPOrder Info: [id number] - LIPIDOrder Info: - MG Performed By: #### L 100.0100, L501.9985, L501.5200, L500.4100, L500.4050 ####[facility] [address] [place], [place], [id number] Magnesium measurement (mass/ volume)Ordered By: Dom Chaidez on 01-14-2025 Magnesium (Unsp spec) [Mass/Vol] 1.6 mg/dL 1.5-2.2 [facility] Mean corpuscular hemoglobin (MCH) determinationOrdered By: Dom Chaidez on 01-14-2025 MCH (RBC) [Entitic mass] 28.7 pg 27.0-32.0 [facility] Mean corpuscular hemoglobin concentration (MCHC) determinationOrdered By: Dom Chaidez on 01-14-2025 MCHC (RBC) [Mass/Vol] 31.9 g/dL Low 32-36 [facility] Mean platelet volume determi nationOrdered By: Dom Chaidez on 01-14-2025 Platelet mean volume (Bld) [Entitic vol] 11.0 fL 6.2-12.0 [facility] Monocyte percentageOrdered B y: Dom Chaidez on 01-14-2025 Monocytes/100 WBC (Bld) 9.6 % 0-10 [facility] Neutrophil percentageOrdered By: Dom Chaidez on 01-14-2025 Neutrophils/100 WBC (Bld) 51.5 % 47-70 [facility] Nucleated red blood cell per centageOrdered By: Dom Chaidez on 01-14-2025 Nucleated RBC/100 WBC (Bld) [Ratio] 0 % 0-5 [facility] Platelet countOrdered By: Lisa Chaidez on 01-14-2025 Platelets (Bld) [#/Vol] 238 10*3/uL 150-450 [facility] Potassium measurement (mass/ volume)Ordered By: Dom Chaidez on 01-14-2025 Potassium (Unsp spec) [Mass/Vol] 4.0 mmol/L 3.3-5.1 [facility] RBC Auto (Bld) [#/Vol]Ordere d By: Dom Chaidez on 01-14-2025 RBC (Bld) [#/Vol] 4.01 10*6/uL Low 4.6-6.2 [facility] Screening total cholesterol/ high density lipoprotein (HDL) cholesterol ratioOrdered By: Dom Chaidez on 01-14-2025 Cholesterol.total/Chol esterol in HDL [Mass ratio] 1.78 {ratio} [facility] Serum creatinine measurement (mass/volume)Ordered By: Dom Chaidez on 01-14-2025 Creatinine [Mass/Vol] 1.49 mg/dL High 0.70-1.20 [facility] Serum globulin measurementOr dered By: Dom Chaidez on 01-14-2025 Globulin (S) [Mass/Vol] 2.9 g/dL 2.2-4.2 [facility] Serum glucose measurement (m ass/volume)Ordered By: Dom Chaidez on 01-14-2025 Glucose [Mass/Vol] 101 mg/dL High 70-99 [facility] Serum or plasma alanine verdin otransferase (ALT) measurementOrdered By: Dom Chaidez on 01-14-2025 ALT [Catalytic activity/Vol] 11 U/L <47 [facility] Serum or plasma albumin gracie urement (mass/volume)Ordered By: Dom Chaidez on 01-14-2025 Albumin [Mass/Vol] 4.0 g/dL 3.4-4.8 [facility] Serum or plasma albumin/glob ulin mass ratioOrdered By: Dom Chaidez on 01-14-2025 Albumin/Globulin [Mass ratio] 1.4 {ratio} 0.9-2.4 [facility] Serum or plasma alkaline miguel sphatase measurementOrdered By: Dom Chaidez on 01-14-2025 ALP [Catalytic activity/Vol] 85 U/L 40-129 [facility] Serum or plasma calcium gracie urement (mass/volume)Ordered By: Dom Chaidez on 01-14-2025 Calcium [Mass/Vol] 9.5 mg/dL 7.6-11.0 [facility] Serum or plasma cholesterol in HDL measurement (mass/volume)Ordered By: Dom Chaidez on 01-14-2025 Cholesterol in HDL [Mass/Vol] 71 mg/dL >40 [facility] Comment on above: National Cholesterol Education Program (NCEP) guidelines:<40 mg/dL: Low HDL-cholesterol (major risk factor for CHD)>= 60 mg/dL: High HDL-cholesterol (negative risk factor for CHD)HDL-cholesterol is affected by a number of factors, e.g. smoking, exercise, hormones, sex and age. Serum or plasma cholesterol measurement (mass/volume)Ordered By: Dom Chaidez on 01-14-2025 Cholesterol [Mass/Vol] 127 mg/dL <201 [facility] Comment on above: Cholesterol level, D esirable <200 mg/dLBorderline high cholesterol 200-239 mg/dLHigh cholesterol >=240 mg/dLRecommendations of the NCEP Adult Treatment Panel for the following risk-cutoff thresholds for the [place] population. Serum or plasma urea nitroge n measurement (mass/volume)Ordered By: Dom Chaidez on 01-14-2025 Urea nitrogen [Mass/Vol] 24 mg/dL High 4-19 [facility] Sodium levelOrdered By: Dom Chaidez on 01-14-2025 Sodium [Moles/Vol] 139 mmol/L 133-145 [facility] Total proteinOrdered By: Saji Chaidez on 01-14-2025 Protein [Mass/Vol] 7.0 g/dL 5.9-8.4 [facility] Triglycerides measurementOrd ered By: Dom Chaidez on 01-14-2025 Triglyceride [Mass/Vol] 63 mg/dL <199 [facility] Comment on above: The drugs N-Acetylcy steine and Metamizole may falsely depress this assay. Normal range: <150 mg/dLBorderline High: 150-199 mg/dLHigh: 200-499 mg/dLVery High: >500 mg/dL Vitamin D,25 Hydroxyon 01-14 Vitamin D 25-OH 62.5 ng/mL Normal 30-100 [facility] Comment on above: Order Comment: Order Date: 01/14/25Order Info: [id number] - CMPOrder Info: [id number] - LIPIDOrder Info: [id number] - MG Result Comment: Fabiola min D Status Deficiency: <20 ng/mL (50nmol/L) Insufficiency: 20-30 ng/mL (50-75 nmol/L) Sufficiency: 30-100 ng/mL (75-250 nmol/L) Toxicity: >100 ng/mL (>250 nmol/L) Performed By: #### L 503.6030, L506.1001, L503.6550 ####[facility] [address] [place], [address] White blood cell (WBC) count Ordered By: Dom Chaidez on 01-14-2025 WBC (Bld) [#/Vol] 8.4 10*3/uL 4.4-11.0 [facility] CBC W/Diff, Automatedon 02-0 5-2024 Absolute Lymph 1.62 X10 3/uL Normal 0.83-4.51 [facility] Comment on above: Order Comment: Order Date: 05/20/24 Order Info: [id number] - CBCD Performed By: #### L 501.9520, L501.9985, L100.0100, L506.1000, L500.4100, L500.4050, L501.5200 #### [facility] [address] [place], [address] Absolute Neut 5.3 X10 3/uL Normal 2.0-7.7 [facility] Comment on above: Order Comment: Order Date: 05/20/24 Order Info: [id number] - CBCD Performed By: #### L 501.9520, L501.9985, L100.0100, L506.1000, L500.4100, L500.4050, L501.5200 #### [facility] [address] [place], [address] Basophils/100 WBC (Bld) 1.0 % Normal 0-1 [facility] Comment on above: Order Comment: Order Date: 05/20/24 Order Info: [id number] - CBCD Performed By: #### L 501.9520, L501.9985, L100.0100, L506.1000, L500.4100, L500.4050, L501.5200 #### [facility] [address] [place], [address] Eosinophils/100 WBC (Bld) 5.7 % High 0-5 [facility] Comment on above: Order Comment: Order Date: 05/20/24 Order Info: 0184-1 - CBCD Performed By: #### L 501.9520, L501.9985, L100.0100, L506.1000, L500.4100, L500.4050, L501.5200 #### [facility] [address] [place], [place], [id number] Erythrocyte distribution width (RBC) [Ratio] 13.1 % Normal 11.6-14.6 [facility] Comment on above: Order Comment: Order Date: 05/20/24 Order Info: [id number] - CBCD Performed By: #### L 501.9520, L501.9985, L100.0100, L506.1000, L500.4100, L500.4050, L501.5200 #### [facility] [address] [place], [place], [address] Hematocrit (Bld) [Volume fraction] 40.1 % Normal 40-54 [facility] Comment on above: Order Comment: Order Date: 05/20/24 Order Info: [id number] - CBCD Performed By: #### L 501.9520, L501.9985, L100.0100, L506.1000, L500.4100, L500.4050, L501.5200 #### [facility] [address] [place], [address] Hemoglobin (Bld) [Mass/Vol] 12.2 g/dL Low 13.0-16.5 [facility] Comment on above: Order Comment: Order Date: 05/20/24 Order Info: 0184-1 - CBCD Performed By: #### L 501.9520, L501.9985, L100.0100, L506.1000, L500.4100, L500.4050, L501.5200 #### [facility] [address] [place], [address] IG% 0.200 Normal 0.0-0.9 [facility] Comment on above: Order Comment: Order Date: 05/20/24 Order Info: [id number] - CBCD Result Comment: IG% - Immature Granulocytes (promyelocytes, myelocytes and metamyelocytes) > 1% indicates that a LEFT SHIFT is Present. Performed By: #### L 501.9520, L501.9985, L100.0100, L506.1000, L500.4100, L500.4050, L501.5200 #### [facility] [address] [place], [address] Lymphocytes/100 WBC (Bld) 19.7 % Normal 19-41 [facility] Comment on above: Order Comment: Order Date: 05/20/24 Order Info: 018- - CBCD Performed By: #### L 501.9520, L501.9985, L100.0100, L506.1000, L500.4100, L500.4050, L501.5200 #### [facility] [address] [place], [address] MCH (RBC) [Entitic mass] 29.1 pg Normal 27.0-32.0 [facility] Comment on above: Order Comment: Order Date: 05/20/24 Order Info: [id number] - CBCD Performed By: #### L 501.9520, L501.9985, L100.0100, L506.1000, L500.4100, L500.4050, L501.5200 #### [facility] [address] [place], [address] MCHC (RBC) [Mass/Vol] 30.4 g/dL Low 32-36 [facility] Comment on above: Order Comment: Order Date: 05/20/24 Order Info: [id number]- - CBCD Performed By: #### L 501.9520, L501.9985, L100.0100, L506.1000, L500.4100, L500.4050, L501.5200 #### [facility] [address] [place], [address] MCV (RBC) [Entitic vol] 95.7 fL High 80-94 [facility] Comment on above: Order Comment: Order Date: 05/20/24 Order Info: [id number]- - CBCD Performed By: #### L 501.9520, L501.9985, L100.0100, L506.1000, L500.4100, L500.4050, L501.5200 #### [facility] [address] [place], [address] Monocytes/100 WBC (Bld) 9.3 % Normal 0-10 [facility] Comment on above: Order Comment: Order Date: 05/20/24 Order Info: 0184-1 - CBCD Performed By: #### L 501.9520, L501.9985, L100.0100, L506.1000, L500.4100, L500.4050, L501.5200 #### [facility] [address] [place], [address] Neutrophils/100 WBC (Bld) 64.1 % Normal 47-70 [facility] Comment on above: Order Comment: Order Date: 05/20/24 Order Info: 0184-1 - CBCD Performed By: #### L 501.9520, L501.9985, L100.0100, L506.1000, L500.4100, L500.4050, L501.5200 #### [facility] [address] [facility] [place], [address] Nucleated RBC (Bld) [#/Vol] 0 10*3/uL Normal 0-5 [facility] Comment on above: Order Comment: Order Date: 05/20/24 Order Info: 0184-1 - CBCD Performed By: #### L 501.9520, L501.9985, L100.0100, L506.1000, L500.4100, L500.4050, L501.5200 #### [facility] [address] [place], [address] Platelet mean volume (Bld) [Entitic vol] 11.0 fL Normal 6.2-12.0 [facility] Comment on above: Order Comment: Order Date: 05/20/24 Order Info: 0184-1 - CBCD Performed By: #### L 501.9520, L501.9985, L100.0100, L506.1000, L500.4100, L500.4050, L501.5200 #### [facility] [address] [place], [address] Platelets (Bld) [#/Vol] 206 10*3/uL Normal 150-450 [facility] Comment on above: Order Comment: Order Date: 05/20/24 Order Info: 0184-1 - CBCD Performed By: #### L 501.9520, L501.9985, L100.0100, L506.1000, L500.4100, L500.4050, L501.5200 #### [facility] [address] [place], [address] RBC (Bld) [#/Vol] 4.19 10*6/uL Low 4.6-6.2 [facility] Comment on above: Order Comment: Order Date: 05/20/24 Order Info: 0184-1 - CBCD Performed By: #### L 501.9520, L501.9985, L100.0100, L506.1000, L500.4100, L500.4050, L501.5200 #### [facility] [address] [place], [address] RDW SD 46.5 fl High 35.1-43.9 [facility] Comment on above: Order Comment: Order Date: 05/20/24 Order Info: 0184-1 - CBCD Performed By: #### L 501.9520, L501.9985, L100.0100, L506.1000, L500.4100, L500.4050, L501.5200 #### [facility] [address] [place], [address] WBC (Bld) [#/Vol] 8.2 10*3/uL Normal 4.4-11.0 [facility] Comment on above: Order Comment: Order Date: 05/20/24 Order Info: 0184-1 - CBCD Performed By: #### L 501.9520, L501.9985, L100.0100, L506.1000, L500.4100, L500.4050, L501.5200 #### [facility] [address] [place], [place], [id number] Comprehensive Metabolic Prof ilon 06-23-2024 Albumin [Mass/Vol] 3.4 g/dL Normal 3.2-5.0 [facility] Comment on above: Order Comment: Order Date: 05/20/24 Order Info: [id number] - CMP Order Info: [id number] - LIPID Order Info: [id number] - MG Order Info: [id number] - TSH Performed By: #### L 501.9520, L501.9985, L100.0100, L506.1000, L500.4100, L500.4050, L501.5200 #### [facility] [address] [place], [place], [address] Albumin/Globulin [Mass ratio] 0.9 {ratio} Normal 0.9-2.4 [facility] Comment on above: Order Comment: Order Date: 05/20/24 Order Info: [id number] - CMP Order Info: [id number] - LIPID Order Info: [id number] - MG Order Info: [id number] - TSH Performed By: #### L 501.9520, L501.9985, L100.0100, L506.1000, L500.4100, L500.4050, L501.5200 #### [facility] [address] [place], [place], [address] ALK P 119 U/L High 45-117 [facility] Comment on above: Order Comment: Order Date: 05/20/24 Order Info: 0786-1 - CMP Order Info: [id number] - LIPID Order Info: [id number] - MG Order Info: [id number] - TSH Performed By: #### L 501.9520, L501.9985, L100.0100, L506.1000, L500.4100, L500.4050, L501.5200 #### [facility] [address] [place], [address] ALT [Catalytic activity/Vol] 32 U/L Normal 16-61 [facility] Comment on above: Order Comment: Order Date: 05/20/24 Order Info: [id number] - CMP Order Info: [id number] - LIPID Order Info: [id number] - MG Order Info: [id number] - TSH Performed By: #### L 501.9520, L501.9985, L100.0100, L506.1000, L500.4100, L500.4050, L501.5200 #### [facility] [address] [place], [address] AST [Catalytic activity/Vol] 24 U/L Normal 15-37 [facility] Comment on above: Order Comment: Order Date: 05/20/24 Order Info: [id number] - CMP Order Info: [id number] - LIPID Order Info: [id number] - MG Order Info: [id number] - TSH Performed By: #### L 501.9520, L501.9985, L100.0100, L506.1000, L500.4100, L500.4050, L501.5200 #### [facility] [address] [place], [address] Bilirubin [Mass/Vol] 0.20 mg/dL Normal 0.20-1.00 [facility] Comment on above: Order Comment: Order Date: 05/20/24 Order Info: [id number] - CMP Order Info: [id number] - LIPID Order Info: [id number] - MG Order Info: [id number] - TSH Result Comment: For patients on eltrombopag therapy, use of Dimension [place] TBIL is not recommended. Performed By: #### L 501.9520, L501.9985, L100.0100, L506.1000, L500.4100, L500.4050, L501.5200 #### [facility] [address] [place], [address] BUN/CRE 20.6 RATIO High 10-20 [facility] Comment on above: Order Comment: Order Date: 05/20/24 Order Info: [id number] - CMP Order Info: [id number] - LIPID Order Info: [id number] - MG Order Info: [id number] - TSH Performed By: #### L 501.9520, L501.9985, L100.0100, L506.1000, L500.4100, L500.4050, L501.5200 #### [facility] [address] [place], [address] CA,Total 8.9 mg/dL Normal 8.5-10.1 [facility] Comment on above: Order Comment: Order Date: 05/20/24 Order Info: 07-1 - CMP Order Info: [id number] - LIPID Order Info: [id number] - MG Order Info: 3015-3 - TSH Performed By: #### L 501.9520, L501.9985, L100.0100, L506.1000, L500.4100, L500.4050, L501.5200 #### [facility] [address] [place], [address] Chloride [Moles/Vol] 105 mmol/L Normal 98-107 [facility] Comment on above: Order Comment: Order Date: 05/20/24 Order Info: [id number] - CMP Order Info: [id number] - LIPID Order Info: [id number] - MG Order Info: [id number] - TSH Performed By: #### L 501.9520, L501.9985, L100.0100, L506.1000, L500.4100, L500.4050, L501.5200 #### [facility] [address] [place], [address] CO2 [Moles/Vol] 31.0 mmol/L Normal 21.0-32.0 [facility] Comment on above: Order Comment: Order Date: 05/20/24 Order Info: [id number] - CMP Order Info: [id number] - LIPID Order Info: [id number] - MG Order Info: 3 - TSH Performed By: #### L 501.9520, L501.9985, L100.0100, L506.1000, L500.4100, L500.4050, L501.5200 #### [facility] [address] [place], [address] Creatinine [Mass/Vol] 0.97 mg/dL Normal 0.70-1.30 [facility] Comment on above: Order Comment: Order Date: 05/20/24 Order Info: 86-1 - CMP Order Info: [id number] - LIPID Order Info: [id number] - MG Order Info: 3 - TSH Result Comment: The validity of the calculated GFR GFRAA in patients over 70 years has not been determined. Clinical correlation is essential. Performed By: #### L 501.9520, L501.9985, L100.0100, L506.1000, L500.4100, L500.4050, L501.5200 #### [facility] [address] [place], [address] EST GFR - AA 97 mL/min Normal >60 [facility] Comment on above: Order Comment: Order Date: 05/20/24 Order Info: [id number] - CMP Order Info: [id number] - LIPID Order Info: [id number] - MG Order Info: [id number] - TSH Result Comment: Afri can Syrian GFR Calc Performed By: #### L 501.9520, L501.9985, L100.0100, L506.1000, L500.4100, L500.4050, L501.5200 #### [facility] [address] [place], [address] GAP 3 Low 5-15 [facility] Comment on above: Order Comment: Order Date: 05/20/24 Order Info: [id number] - CMP Order Info: [id number] - LIPID Order Info: [id number] - MG Order Info: 3 - TSH Performed By: #### L 501.9520, L501.9985, L100.0100, L506.1000, L500.4100, L500.4050, L501.5200 #### [facility] [address] [place], [address] GFR/1.73 sq M.predicted among non-blacks MDRD (S/P/Bld) [Vol rate/Area] 80 mL/min/{1.73_m2} Normal >60 [facility] Comment on above: Order Comment: Order Date: 05/20/24 Order Info: [id number] - CMP Order Info: [id number] - LIPID Order Info: [id number] - MG Order Info: 301-3 - TSH Result Comment: Non- GFR Calc Performed By: #### L 501.9520, L501.9985, L100.0100, L506.1000, L500.4100, L500.4050, L501.5200 #### [facility] [address] [place], [address] Globulin (S) [Mass/Vol] 3.8 g/dL Normal 2.2-4.2 [facility] Comment on above: Order Comment: Order Date: 05/20/24 Order Info: [id number] - CMP Order Info: [id number] - LIPID Order Info: [id number] - MG Order Info: 3016-3 - TSH Performed By: #### L 501.9520, L501.9985, L100.0100, L506.1000, L500.4100, L500.4050, L501.5200 #### [facility] [address] [place], [address] Glucose [Mass/Vol] 92 mg/dL Normal 74-106 [facility] Comment on above: Order Comment: Order Date: 05/20/24 Order Info: [id number] - CMP Order Info: [id number] - LIPID Order Info: [id number] - MG Order Info: 301-3 - TSH Performed By: #### L 501.9520, L501.9985, L100.0100, L506.1000, L500.4100, L500.4050, L501.5200 #### [facility] [address] [place], [address] Potassium [Moles/Vol] 4.4 mmol/L Normal 3.5-5.1 [facility] Comment on above: Order Comment: Order Date: 05/20/24 Order Info: [id number] - CMP Order Info: [id number] - LIPID Order Info: [id number] - MG Order Info: 3016-3 - TSH Performed By: #### L 501.9520, L501.9985, L100.0100, L506.1000, L500.4100, L500.4050, L501.5200 #### [facility] [address] [place], [address] Sodium [Moles/Vol] 139 mmol/L Normal 136-145 [facility] Comment on above: Order Comment: Order Date: 05/20/24 Order Info: 86-1 - CMP Order Info: [id number] - LIPID Order Info: [id number] - MG Order Info: [id number] - TSH Performed By: #### L 501.9520, L501.9985, L100.0100, L506.1000, L500.4100, L500.4050, L501.5200 #### [facility] [address] [place], [address] T PROT 7.2 g/dL Normal 6.4-8.2 [facility] Comment on above: Order Comment: Order Date: 05/20/24 Order Info: [id number] - CMP Order Info: [id number] - LIPID Order Info: [id number] - MG Order Info: [id number] - TSH Performed By: #### L 501.9520, L501.9985, L100.0100, L506.1000, L500.4100, L500.4050, L501.5200 #### [facility] [address] [place], [place], [address] Urea nitrogen [Mass/Vol] 20 mg/dL High 7-18 [facility] Comment on above: Order Comment: Order Date: 05/20/24 Order Info: [id number] - CMP Order Info: [id number] - LIPID Order Info: [id number] - MG Order Info: [id number] - TSH Performed By: #### L 501.9520, L501.9985, L100.0100, L506.1000, L500.4100, L500.4050, L501.5200 #### [facility] [address] [place], [place], [id number] Hemoglobin A1con 06-23-2024 HbA1c (Bld) [Mass fraction] 5.2 % Normal 3.8-5.6 [facility] Comment on above: Order Comment: Order Date: 05/20/24 Order Info: [id number] - A1C Result Comment: Norm al < 5.7 % Prediabetic 5.7 - 6.4 % Diabetic >or= 6.5 % Please note range changes. Performed By: #### L 501.9520, L501.9985, L100.0100, L506.1000, L500.4100, L500.4050, L501.5200 #### [facility] [address] [place], [place], [id number] Lipid Profileon 06-23-2024 Cholesterol [Mass/Vol] 133 mg/dL Normal 200 [facility] Comment on above: Order Comment: Order Date: 05/20/24 Order Info: [id number] - CMP Order Info: [id number] - LIPID Order Info: [id number] - MG Order Info: [id number] - TSH Result Comment: <200 mg/dL Desirable 200-240 mg/dL Borderline >240 mg/dL High Risk Performed By: #### L 501.9520, L501.9985, L100.0100, L506.1000, L500.4100, L500.4050, L501.5200 #### [facility] [address] [place], [address] Cholesterol in HDL [Mass/Vol] 80 mg/dL Normal [facility] Comment on above: Order Comment: Order Date: 05/20/24 Order Info: [id number] - CMP Order Info: [id number] - LIPID Order Info: [id number] - MG Order Info: [id number] - TSH Result Comment: The drugs N-Acetylcysteine and Metamizole may falsely depress this assay. Reference Range HDL <40 mg/dL Low HDL Cholesterol HDL >or= 60 mg/dL High HDL Cholesterol Performed By: #### L 501.9520, L501.9985, L100.0100, L506.1000, L500.4100, L500.4050, L501.5200 #### [facility] [address] [place], [address] Cholesterol in LDL [Mass/Vol] 46 mg/dL Normal 0-130 [facility] Comment on above: Order Comment: Order Date: 05/20/24 Order Info: [id number]- - CMP Order Info: [id number] - LIPID Order Info: [id number] - MG Order Info: [id number] - TSH Performed By: #### L 501.9520, L501.9985, L100.0100, L506.1000, L500.4100, L500.4050, L501.5200 #### [facility] [address] [place], [address] Cholesterol in VLDL [Mass/Vol] 7 mg/dL Normal 5-40 [facility] Comment on above: Order Comment: Order Date: 05/20/24 Order Info: [id number]- - CMP Order Info: [id number] - LIPID Order Info: [id number] - MG Order Info: [id number] - TSH Performed By: #### L 501.9520, L501.9985, L100.0100, L506.1000, L500.4100, L500.4050, L501.5200 #### [facility] [address] [place], [address] Triglyceride [Mass/Vol] 36 mg/dL Normal [facility] Comment on above: Order Comment: Order Date: 05/20/24 Order Info: [id number] - CMP Order Info: [id number] - LIPID Order Info: [id number] - MG Order Info: [id number] - TSH Result Comment: The drugs N-Acetylcysteine and Metamizole may falsely depress this assay. Serum Triglycerides Reference Interval Normal <150 mg/dL Borderline high 150 - 199 mg/dL High 200 - 499 mg/dL Very High > or = 500 mg/dL Performed By: #### L 501.9520, L501.9985, L100.0100, L506.1000, L500.4100, L500.4050, L501.5200 #### [facility] [address] [place], [address] Magnesiumon 06-23-2024 Magnesium [Mass/Vol] 2.2 mg/dL Normal 1.6-2.6 [facility] Comment on above: Order Comment: Order Date: 05/20/24 Order Info: [id number]- - CMP Order Info: [id number] - LIPID Order Info: [id number] - MG Order Info: 3 - TSH Performed By: #### L 501.9520, L501.9985, L100.0100, L506.1000, L500.4100, L500.4050, L501.5200 #### [facility] [address] [place], [address] Thyroid Stim Hormone (TSH)on 06-23-2024 TSH 2.360 uIU/mL Normal 0.358-3.74 0 [facility] Comment on above: Order Comment: Order Date: 05/20/24 Order Info: [id number] - CMP Order Info: [id number] - LIPID Order Info: [id number] - MG Order Info: 3 - TSH Performed By: #### L 501.9520, L501.9985, L100.0100, L506.1000, L500.4100, L500.4050, L501.5200 #### [facility] [address] [place], [address] Vitamin D,25 Hydroxyon 06-23 Vitamin D 25-OH 59.3 ng/mL Normal [facility] Comment on above: Order Comment: Order Date: 05/20/24 Order Info: [id number] - VITD25 Result Comment: Fabiola min D 25(OH) Status Range Deficiency <20 ng/mL (50nmol/L) Insufficiency 20 - 30 ng/mL (50 - 75 nmol/L) Sufficiency 30 - 100 ng/mL (75 - 250 nmol/L) Toxicity >100 ng/mL (>250 nmol/L) Performed By: #### L 501.9520, L501.9985, L100.0100, L506.1000, L500.4100, L500.4050, L501.5200 #### [facility] [address] [place], [place], [address] Low Dose CT Lung Screeningon 05-06-[address] Lung Screening [facility] Services [address] [place], [place] [address] Low Dose CT Lung Screening MR#: [id number] Acct: [id number] Name: RYAN VAZ Rep #: [id number] : 1950 M 73 From: Prasad hilton MD PCP: Dr. Dom Chaidez MD Status: [facility] Study: Low Dose CT Lung Screening Date of Exam: 05/06 Exam# [id number] Ordering Dr: Goldy Rain MD [id number] STUDY: LOW DOSE CT LUNG CANCER SCREENING REASON FOR EXAM: Male, 73 years old. Personal history of nicotine dependence. Current smoker. RADIATION DOSAGE (If Supplied By Facility): CTDIvol = ( 3.02 ) mGy, DLP = ( 111.36 ) mGycm TECHNIQUE: No contrast was administered. Low dose technique was utilized (average mAS-38 and kVp 120). 1.25 mm axial source images with a slice interval of 1.25-mm were reconstructed in lung windows. 2.5 mm axial source images with a slice interval of 2.5-mm were reconstructed in lung windows. 5.0 mm axial source images with a slice interval of 5.0-mm were reconstructed in soft tissue windows. COMPARISON: Comparison is made with prior study dated April 21, 2023. NODULES: No suspicious nodules are seen. Emphysema: Hyperinflation. Diffuse emphysematous changes worse in the upper lobes with bullous formation. The previously seen right lower lung infiltrate has improved. Residual linear changes persist most likely representing postinflammatory scarring. No suspicious nodules are seen. Endobronchial lesion: None Aorta: Atherosclerotic plaque formation of the aortic arch. CORONARY ARTERIES: Coronary artery calcification is seen. Heart: Unremarkable Pulmonary artery: Unremarkable Mediastinal nodes: Unremarkable Other chest and abdominal findings: CT/Low Dose CT Lung Screening IMPRESSION: Lung-RADS category 2 - Continue annual screening with LDCT in 12 months. IMPORTANT NOTES FOR USE: ACR Lung-RADS Version 1.1 Assessment Categories Release Date: 2018 Category: Coded 0-4 bases on nodule(s) with highest degree of suspicion. Negative screen is defined as categories 1 and 2; a positive screen is defined as categories 3 and 4. Category 3 and 4A nodules that are unchanged on interval CT should be coded as category 2, and individuals returned to screening in 12 months. Category 4X: Category 3 or 4 nodules with additional imaging findings that increase the suspicion of lung cancer, such as spiculation, GGN that doubles in size in 1 year, enlarged lymph notes, etc. Category Modifiers: S (significant finding unrelated to lung cancer) Electronically Signed: Prasad Felton MD at 13:14 EST , CC: Dr. Dom Chaidez MD; Dr. Goldy Rain MD Aquatic Physiotherapist: Signed Normal [facility] Emergency Department Summary on 04-24-2024 Emergency Department Summary [facility] Medical Records Department [address] [place] [address] Emergency Department Summary 04/24/24 MR#: [id number] Acct: [id number] Name: RYAN VAZ Rep #: [id number] : 1950 73 From: Agustin Quinones DO PCP: Dr. Dom Chaidez MD Status:REG ER Location: ED HPI History of Present Illness Chief Complaint: Nosebleed [facility] Medical History (Updated 04/24/24 @ 20:[address] Agustin Quinones DO) Incidental pulmonary nodule, less than or equal to 3mm Acute respiratory failure with hypoxemia Chronic bullous emphysema COPD exacerbation Hard of hearing Wears eyeglasses Alcohol abuse Hypoglycemia High cholesterol Neuropathy Head injury Passed out Heartburn Smoker COPD (chronic obstructive pulmonary disease) Shortness of breath Leg pain Leg cramps Edema History of stress test Osteoporosis Peripheral arterial occlusive disease Back pain HTN (hypertension) PAOD (peripheral arterial occlusive disease) Home Medications ???Medication ???Instructions ???Recorded ???Last Taken ???Type pantoprazole 40 mg tablet,delayed 40 mg PO BID ACID REFLUX 30 days 01/22/23 02/07/23 Rx release #60 tabs cholecalciferol (vitamin D3) 25 25 mcg PO DAILY SUPPLEMENT 02/12/23 02/07/23 History mcg (1,000 unit) capsule (Vitamin D3) aspirin 81 mg chewable tablet 81 mg PO BREAKFAST #0 tabs 02/25/23 Unknown Rx clopidogrel 75 mg tablet (Plavix) 75 mg PO DAILY #30 tabs 02/25/23 Unknown Rx dronabinol 2.5 mg capsule 2.5 mg PO BIDAC #60 caps 02/25/23 Unknown Rx ipratropium 0.5 mg-albuterol 3 mg 3 ml inhalation 4XD #0 mL 02/25/23 Unknown Rx (2.5 mg base)/3 mL nebulization soln mirtazapine 15 mg tablet (Remeron) 15 mg PO DAILY #30 tabs 02/25/23 Unknown Rx rosuvastatin 20 mg tablet 20 mg PO DAILY CHOLESTEROL #1 TAB 02/25/23 02/07/23 Rx Allergy/AdvReac Type Severity Reaction Status Date / Time ciprofloxacin HCl (From Allergy Severe Nausea Verified 07/24/23 19:55 Cipro) Family History Father Hypertension Cancer lung Other Osteoporosis Surgical History H/O esophagogastroduodenoscopy Hx of right cataract extraction Hx of left cataract extraction Hx of colonoscopy Status post peripheral artery angioplasty Social History (Updated 02/12/23 @ 16:[address] Temitope Son DO) household members: family housing: house Smoking Status: Current every day smoker tobacco type: cigarettes alcohol intake: never substance use type: does not use EXAM Physical Exam Const Vital Signs: 04/24/24 17:26 Temperature 98.6 F Temperature Source Oral Pulse Rate 78 Respiratory Rate 16 Blood Pressure 132/62 H Blood Pressure Mean 85 Pulse Ox 98 Oxygen Delivery Method Room Air [facility] Narrative Medical decision making narrative: HISTORY OF PRESENT ILLNESS: 73-year-old male presents with nosebleed. Notes he has seen ENT had cauterization this week. States began to bleed limit last night and more today. REVIEW OF SYSTEMS: Pertinent positives: Epistaxis Pertinent negatives: Syncope, lightheadedness PHYSICAL EXAM: Nursing triage notes reviewed, Vital signs reviewed Constitutional: please see mdm HENT: MMM, taxis noted from right nares. Eyes: Pupils equal round and reactive to light, Extraocular muscles intact Neck: No stridor, no JVD, full neck ROM Lungs: Clear to auscultation, No wheezing or rales. No increased work of breathing, no conversational dyspnea, no accessory muscle use, no nasal flaring. No respiratory distress noted Heart: Regular rate and rhythm, No murmurs, No rubs and No gallops, 2+ distal pulses (radial, femoral, posterior tibial) in all extremities MEDICAL DECISION MAKING: Chief Complaint: Epistaxis External records reviewed: Could not find ENT records upon record review Factors affecting care: PAD, malnutrition, COPD Social determinants of health: none History obtained from others: none Consults: ENT Dr. Fuchs [facility] Narrative: Patient was hemodynamically stable, afebrile, nontoxic-appearing. Exam with active epistaxis right nares. Initiated epistaxis algorithm. Started with pressure. This seemed to improve bleeding. Patient was still oozing slightly so I placed a let impregnated cotton ball in the patient's right nares. Upon reassessment patient continued bleeding. I then used Afrin and placed a Rhino Rocket in the right nares. This helped with hemostasis. The patient was still oozing around the Rhino Rocket psych consult to ENT. Spoke to Dr. Segura. Dr. Segura came in to pack the patient's nose. After Merocel packing patient had complete hemostasis. He is appropriate discharge home. Instructions to leave p (more content not included)... Normal [facility] Absolute lymphocyte countOrd ered By: Dom Chaidez on 07-10-2023 Lymphocytes Auto (Unsp spec) [#/Vol] 1.05 10*3/uL 0.83-4.51 [facility] Automated lymphocyte count a s percentage of total leukocytesOrdered By: Dom Chaidez on 07-10-2023 Lymphocytes/100 WBC Auto (Unsp spec) 15.5 % 19-41 [facility] Basophil percentageOrdered B y: Dom Chaidez on 07-10-2023 Basophil percentage 3.4 mg/dL 2.5-4.9 [facility] Basophils/100 WBC (Bld) 0.7 % 0-1 [facility] Bilirubin [Mass/Vol] 0.30 mg/dL 0.20-1.00 [facility] Comment on above: For patients on eltr ombopag therapy, use of Dimension [place] TBIL is not recommended. Chloride [Moles/Vol] 108 mmol/L 98-107 [facility] Cholesterol [Mass/Vol] 132 mg/dL <200 [facility] Comment on above: <200 mg/dL Desirable 200-240 mg/dL Borderline >240 mg/dL High Risk Eosinophils/100 WBC (Bld) 2.2 % 0-5 [facility] Glucose [Mass/Vol] 98 mg/dL 74-106 [facility] Hemoglobin (Bld) [Mass/Vol] 10.1 g/dL 13.0-16.5 [facility] Monocytes/100 WBC (Bld) 7.5 % 0-10 [facility] Neutrophils (Bld) [#/Vol] 5.0 10*3/uL 2.0-7.7 [facility] Neutrophils/100 WBC (Bld) 73.8 % 47-70 [facility] Potassium [Moles/Vol] 4.1 mmol/L 3.5-5.1 [facility] Protein [Mass/Vol] 7.3 g/dL 6.4-8.2 [facility] Sodium [Moles/Vol] 140 mmol/L 136-145 [facility] Triglyceride [Mass/Vol] 57 mg/dL <199 [facility] Comment on above: The drugs N-Acetylcy steine and Metamizole may falsely depress this assay.Serum Triglycerides Reference Interval Normal <150 mg/dL Borderline high 150 - 199 mg/dL High 200 - 499 mg/dL Very High > or = 500 mg/dL WBC (Bld) [#/Vol] 6.8 10*3/uL 4.4-11.0 [facility] Determination of erythrocyte mean corpuscular volume (MCV)Ordered By: Dom Chaidez on 07-10-2023 MCV (RBC) [Entitic vol] 90.3 fL 80-94 [facility] Erythrocyte distribution wid th ratioOrdered By: Dom Chaidez on 07-10-2023 Erythrocyte distribution width (RBC) [Ratio] 13.0 % 11.6-14.6 [facility] Erythrocyte distribution wid th standard deviationOrdered By: Dom Chaidez on 07-10-2023 Erythrocyte distribution width (RBC) [Entitic vol] 42.8 fL 35.1-43.9 [facility] Hematocrit Auto (Bld) [Volum e fraction]Ordered By: Dom Chaidez on 07-10-2023 Hematocrit (Bld) [Volume fraction] 32.5 % 40-54 [facility] Immature granulocytes/100 WB C Auto (Bld)Ordered By: Dom Chaidez on 07-10-2023 Immature granulocytes/100 WBC (Bld) 0.300 % 0.0-0.9 [facility] Comment on above: IG% - Immature Granu locytes (promyelocytes, myelocytes and metamyelocytes) > 1% indicates that a LEFT SHIFT is Present. Laboratory - Chemistry and C hemistry - challengeOrdered By: Dom Chaidez on 07-10-2023 Albumin/Globulin [Mass ratio] 1.0 {ratio} 0.9-2.4 [facility] ALP [Catalytic activity/Vol] 90 U/L 45-117 [facility] ALT [Catalytic activity/Vol] 24 U/L 16-61 [facility] Cholesterol in HDL [Mass/Vol] 79 mg/dL >40 [facility] Comment on above: The drugs N-Acetylcy steine and Metamizole may falsely depress this assay. Reference Range HDL <40 mg/dL Low HDL Cholesterol HDL >or= 60 mg/dL High HDL Cholesterol Cholesterol in LDL [Mass/Vol] 42 mg/dL 0-130 [facility] CO2 [Moles/Vol] 27.0 mmol/L 21.0-32.0 [facility] Globulin (S) [Mass/Vol] 3.7 g/dL 2.2-4.2 [facility] Magnesium [Mass/Vol] 2.0 mg/dL 1.6-2.6 [facility] Urea nitrogen/Creatinine [Mass ratio] 25.5 mg/mg 10-20 [facility] - Hematology and Cell countsOrdered By: Dom Chaidez on 07-10-2023 MCH (RBC) [Entitic mass] 28.1 pg 27.0-32.0 [facility] MCHC (RBC) [Mass/Vol] 31.1 g/dL 32-36 [facility] Nucleated RBC/100 WBC (Bld) [Ratio] 0 % 0-5 [facility] Platelet mean volume (Bld) [Entitic vol] 10.1 fL 6.2-12.0 [facility] Platelets (Bld) [#/Vol] 278 10*3/uL 150-450 [facility] No Panel InformationOrdered By: Dom Chaidez on 07-10-2023 Estimated GFR (MDRD) Amer 92 mL/min >60 [facility] Comment on above: GFR Calc Estimated GFR (MDRD) Non-Af Amer 76 mL/min >60 [facility] Comment on above: Non- GFR Calc Parathyroid Hormone (Intact) 48.8 pg/mL 18.4-80.1 [facility] Vitamin D 25-Hydroxy 69.6 ng/mL [facility] Comment on above: Vitamin D 25(OH) Sta tus Range Deficiency <20 ng/mL (50nmol/L) Insufficiency 20 - 30 ng/mL (50 - 75 nmol/L) Sufficiency 30 - 100 ng/mL (75 - 250 nmol/L) Toxicity >100 ng/mL (>250 nmol/L) VLDL Cholesterol 11 mg/dL 5-40 [facility] RBC Auto (Bld) [#/Vol]Ordere d By: Dom Chaidez on 07-10-2023 RBC (Bld) [#/Vol] 3.60 10*6/uL 4.6-6.2 [facility] Serum or plasma calcium gracie urement (mass/volume)Ordered By: Dom Chaidez on 07-10-2023 Calcium [Mass/Vol] 9.5 mg/dL 8.5-10.1 [facility] Serum or plasma creatinine m easurement (mass/volume)Ordered By: Dom Chaidez on 07-10-2023 Creatinine [Mass/Vol] 1.02 mg/dL 0.70-1.30 [facility] Comment on above: The validity of the calculated GFR & GFRAA in patients over 70 years has not been determined. Clinical correlation is essential. Serum or plasma thyroid stim ulating hormone (TSH) measurement (units/volume)Ordered By: Dom Chaidez on 07-10-2023 TSH Qn 2.20 uIU/mL 0.358-3.74 [facility] Serum or plasma transthyreti n measurement (mass/volume)Ordered By: Dom Chaidez on 07-10-2023 Prealbumin [Mass/Vol] 17.3 mg/dL 20.0-40.0 [facility] Serum or plasma urea nitroge n measurement (mass/volume)Ordered By: Dom Chaidez on 07-10-2023 Urea nitrogen [Mass/Vol] 26 mg/dL 7-18 [facility] Thin prep Papanicolaou smear with manual screeningOrdered By: Dom Chaidez on 07-10-2023 Thin prep Papanicolaou smear with manual screening 3.6 g/dL 3.2-5.0 [facility] Thin prep Papanicolaou smear with manual screening 19 U/L 15-37 [facility] Thin prep Papanicolaou smear with manual screening 5 5-15 [facility] Whole blood hemoglobin A1c/t otal hemoglobin ratio (mass fraction)Ordered By: Dom Chaidez on 07-10-2023 HbA1c (Bld) [Mass fraction] 5.9 % 3.8-5.6 [facility] Comment on above: Normal < 5.7 % Predi abetic 5.7 - 6.4 % Diabetic >or= 6.5 % Please note range changes. Basophil percentageOrdered B y: Dom Chaidez on 04-08-2023 Bilirubin [Mass/Vol] 0.30 mg/dL 0.20-1.00 [facility] Comment on above: For patients on eltr ombopag therapy, use of Dimension [place] TBIL is not recommended. Chloride [Moles/Vol] 104 mmol/L 98-107 [facility] Glucose [Mass/Vol] 131 mg/dL 74-106 [facility] Comment on above: Fasting Glucose resu lt greater than or equal to 126 mg/dL suggests DIABETES MELLITUS per A.D.A. criteria. Potassium [Moles/Vol] 3.7 mmol/L 3.5-5.1 [facility] Protein [Mass/Vol] 7.0 g/dL 6.4-8.2 [facility] Sodium [Moles/Vol] 139 mmol/L 136-145 [facility] Laboratory - Chemistry and C hemistry - challengeOrdered By: Dom Chaidez on 04-08-2023 ALP [Catalytic activity/Vol] 99 U/L 45-117 [facility] ALT [Catalytic activity/Vol] 20 U/L 16-61 [facility] CO2 [Moles/Vol] 28.0 mmol/L 21.0-32.0 [facility] Globulin (S) [Mass/Vol] 3.7 g/dL 2.2-4.2 [facility] Urea nitrogen/Creatinine [Mass ratio] 16.7 mg/mg 10-20 [facility] No Panel InformationOrdered By: Dom Chaidez on 04-08-2023 Estimated GFR (MDRD) Amer 99 mL/min >60 [facility] Comment on above: GFR Calc Estimated GFR (MDRD) Non-Af Amer 82 mL/min >60 [facility] Comment on above: Non- GFR Calc Serum or plasma albumin gracie urement (mass/volume)Ordered By: Dom Chaidez on 04-08-2023 Albumin [Mass/Vol] 3.3 g/dL 3.2-5.0 [facility] Serum or plasma albumin/glob ulin mass ratioOrdered By: Dom Chaidez on 04-08-2023 Albumin/Globulin [Mass ratio] 0.9 {ratio} 0.9-2.4 [facility] Serum or plasma calcium gracie urement (mass/volume)Ordered By: Dom Chaidez on 04-08-2023 Calcium [Mass/Vol] 8.9 mg/dL 8.5-10.1 [facility] Serum or plasma creatinine m easurement (mass/volume)Ordered By: Dom Chaidez on 04-08-2023 Creatinine [Mass/Vol] 0.96 mg/dL 0.70-1.30 [facility] Comment on above: The validity of the calculated GFR & GFRAA in patients over 70 years has not been determined. Clinical correlation is essential. Serum or plasma urea nitroge n measurement (mass/volume)Ordered By: Dom Chaidez on 04-08-2023 Urea nitrogen [Mass/Vol] 16 mg/dL 7-18 [facility] Thin prep Papanicolaou smear with manual screeningOrdered By: Dom Chaidez on 04-08-2023 Thin prep Papanicolaou smear with manual screening 19 U/L 15-37 [facility] Thin prep Papanicolaou smear with manual screening 7 5-15 [facility] Absolute lymphocyte countOrd ered By: Dom Chaidez on 03-26-2023 Lymphocytes Auto (Unsp spec) [#/Vol] 0.75 10*3/uL 0.83-4.51 [facility] Basophil percentageOrdered B y: Dom Chaidez on 03-26-2023 Basophils/100 WBC (Bld) 0.9 % 0-1 [facility] Bilirubin [Mass/Vol] 0.40 mg/dL 0.20-1.00 [facility] Comment on above: For patients on eltr ombopag therapy, use of Dimension [place] TBIL is not recommended. Chloride [Moles/Vol] 105 mmol/L 98-107 [facility] Cholesterol [Mass/Vol] 181 mg/dL <200 [facility] Comment on above: <200 mg/dL Desirable 200-240 mg/dL Borderline >240 mg/dL High Risk Eosinophils/100 WBC (Bld) 0.7 % 0-5 [facility] Glucose [Mass/Vol] 88 mg/dL 74-106 [facility] Neutrophils (Bld) [#/Vol] 5.4 10*3/uL 2.0-7.7 [facility] Neutrophils/100 WBC (Bld) 79.3 % 47-70 [facility] Potassium [Moles/Vol] 4.2 mmol/L 3.5-5.1 [facility] Protein [Mass/Vol] 7.4 g/dL 6.4-8.2 [facility] Sodium [Moles/Vol] 140 mmol/L 136-145 [facility] Triglyceride [Mass/Vol] 74 mg/dL <199 [facility] Comment on above: The drugs N-Acetylcy steine and Metamizole may falsely depress this assay.Serum Triglycerides Reference Interval Normal <150 mg/dL Borderline high 150 - 199 mg/dL High 200 - 499 mg/dL Very High > or = 500 mg/dL WBC (Bld) [#/Vol] 6.8 10*3/uL 4.4-11.0 [facility] Blood erythrocytes count (nu mber/volume)Ordered By: Dom Chaidez on 03-26-2023 RBC (Bld) [#/Vol] 3.88 10*6/uL 4.6-6.2 [facility] Blood hemoglobin measurement (mass/volume)Ordered By: Dom Chaidez on 03-26-2023 Hemoglobin (Bld) [Mass/Vol] 11.2 g/dL 13.0-16.5 [facility] Blood lymphocytes/100 leukoc ytesOrdered By: Dom Chaidez on 03-26-2023 Lymphocytes/100 WBC (Bld) 11.1 % 19-41 [facility] Blood monocytes/100 leukocyt esOrdered By: Dom Chaidez on 03-26-2023 Monocytes/100 WBC (Bld) 7.7 % 0-10 [facility] Blood platelet mean volumeOr dered By: Dom Chaidez on 03-26-2023 Platelet mean volume (Bld) [Entitic vol] 10.3 fL 6.2-12.0 [facility] Determination of erythrocyte mean corpuscular volume (MCV)Ordered By: Dom Chaidez on 03-26-2023 MCV (RBC) [Entitic vol] 94.6 fL 80-94 [facility] Hematocrit Auto (Bld) [Volum e fraction]Ordered By: Dom Chaidez on 03-26-2023 Hematocrit (Bld) [Volume fraction] 36.7 % 40-54 [facility] Iron measurement (mass/mass) Ordered By: Dom Chaidez on 03-26-2023 Iron (Unsp spec) [Mass/Mass] 75 ug/dL 65-175 [facility] Laboratory - Chemistry and C hemistry - challengeOrdered By: Dom Chaidez on 03-26-2023 ALP [Catalytic activity/Vol] 100 U/L 45-117 [facility] ALT [Catalytic activity/Vol] 16 U/L 16-61 [facility] CO2 [Moles/Vol] 29.0 mmol/L 21.0-32.0 [facility] Cobalamin (Vitamin B12) [Mass/Vol] 244 pg/mL 211-911 [facility] Globulin (S) [Mass/Vol] 4.2 g/dL 2.2-4.2 [facility] Urea nitrogen/Creatinine [Mass ratio] 20.7 mg/mg 10-20 [facility] Laboratory - Hematology and Cell countsOrdered By: Dom Chaidez on 03-26-2023 Erythrocyte distribution width (RBC) [Entitic vol] 59.7 fL 35.1-43.9 [facility] Erythrocyte distribution width (RBC) [Ratio] 17.4 % 11.6-14.6 [facility] Immature granulocytes/100 WBC (Bld) 0.300 % 0.0-0.9 [facility] Comment on above: IG% - Immature Granu locytes (promyelocytes, myelocytes and metamyelocytes) > 1% indicates that a LEFT SHIFT is Present. MCH (RBC) [Entitic mass] 28.9 pg 27.0-32.0 [facility] Nucleated RBC/100 WBC (Bld) [Ratio] 0 % 0-5 [facility] MCHC Auto (RBC) [Mass/Vol]Or dered By: Dom Chaidez on 03-26-2023 MCHC (RBC) [Mass/Vol] 30.5 g/dL 32-36 [facility] No Panel InformationOrdered By: Dom Chaidez on 03-26-2023 Estimated GFR (MDRD) Amer 111 mL/min >60 [facility] Comment on above: GFR Calc Estimated GFR (MDRD) Non-Af Amer 92 mL/min >60 [facility] Comment on above: Non- GFR Calc Thyroid Stimulating Hormone (TSH) 1.80 uIU/mL 0.358-3.74 [facility] Total Iron Binding Capacity 312 ug/dL 250-450 [facility] Vitamin D 25-Hydroxy 85.5 ng/mL [facility] Comment on above: Vitamin D 25(OH) Sta tus Range Deficiency <20 ng/mL (50nmol/L) Insufficiency 20 - 30 ng/mL (50 - 75 nmol/L) Sufficiency 30 - 100 ng/mL (75 - 250 nmol/L) Toxicity >100 ng/mL (>250 nmol/L) Platelets bldOrdered By: Saji Chaidez on 03-26-2023 Platelets (Bld) [#/Vol] 319 10*3/uL 150-450 [facility] Serum or plasma albumin gracie urement (mass/volume)Ordered By: Dom Chaidez on 03-26-2023 Albumin [Mass/Vol] 3.2 g/dL 3.2-5.0 [facility] Serum or plasma albumin/glob ulin mass ratioOrdered By: Dom Chaidez on 03-26-2023 Albumin/Globulin [Mass ratio] 0.8 {ratio} 0.9-2.4 [facility] Serum or plasma calcium gracie urement (mass/volume)Ordered By: Dom Chaidez on 03-26-2023 Calcium [Mass/Vol] 9.4 mg/dL 8.5-10.1 [facility] Serum or plasma cholesterol in HDL measurement (mass/volume)Ordered By: Dom Chaidez on 03-26-2023 Cholesterol in HDL [Mass/Vol] 99 mg/dL >40 [facility] Comment on above: The drugs N-Acetylcy steine and Metamizole may falsely depress this assay. Reference Range HDL <40 mg/dL Low HDL Cholesterol HDL >or= 60 mg/dL High HDL Cholesterol Serum or plasma cholesterol in VLDL measurement (mass/volume)Ordered By: Dom Chaidez on 03-26-2023 Cholesterol in VLDL [Mass/Vol] 15 mg/dL 5-40 [facility] Serum or plasma creatinine m easurement (mass/volume)Ordered By: Dom Chaidez on 03-26-2023 Creatinine [Mass/Vol] 0.87 mg/dL 0.70-1.30 [facility] Comment on above: The validity of the calculated GFR & GFRAA in patients over 70 years has not been determined. Clinical correlation is essential. Serum or plasma ferritin adelina surement (mass/volume)Ordered By: Dom Chaidez on 03-26-2023 Ferritin [Mass/Vol] 137 ng/mL 26-388 [facility] Serum or plasma folate measu rement (mass/volume)Ordered By: Dom Chaidez on 03-26-2023 Folate [Mass/Vol] 16.40 ng/mL 3.1-55.4 [facility] Comment on above: Slight Hemolysis, Re sult may be falsely increased. Serum or plasma low density lipoprotein (LDL) cholesterol measurement (mass/volume)Ordered By: Dom Chaidez on 03-26-2023 Cholesterol in LDL [Mass/Vol] 67 mg/dL 0-130 [facility] Serum or plasma transthyreti n measurement (mass/volume)Ordered By: Dom Chaidez on 03-26-2023 Prealbumin [Mass/Vol] 21.1 mg/dL 20.0-40.0 [facility] Serum or plasma urea nitroge n measurement (mass/volume)Ordered By: Dom Chaidez on 03-26-2023 Urea nitrogen [Mass/Vol] 18 mg/dL 7-18 [facility] Thin prep Papanicolaou smear with manual screeningOrdered By: Dom Chaidez on 03-26-2023 Thin prep Papanicolaou smear with manual screening 14 U/L 15-37 [facility] Thin prep Papanicolaou smear with manual screening 6 5-15 [facility] Absolute lymphocyte countOrd ered By: Dom Chaidez on 03-05-2023 Lymphocytes Auto (Unsp spec) [#/Vol] 1.32 10*3/uL 0.83-4.51 [facility] Basophil percentageOrdered B y: Dom Chaidez on 03-05-2023 Basophils/100 WBC (Bld) 0.6 % 0-1 [facility] Bilirubin [Mass/Vol] 0.40 mg/dL 0.20-1.00 [facility] Comment on above: For patients on eltr ombopag therapy, use of Dimension [place] TBIL is not recommended. Chloride [Moles/Vol] 107 mmol/L 98-107 [facility] Eosinophils/100 WBC (Bld) 4.4 % 0-5 [facility] Glucose [Mass/Vol] 84 mg/dL 74-106 [facility] Neutrophils (Bld) [#/Vol] 3.4 10*3/uL 2.0-7.7 [facility] Neutrophils/100 WBC (Bld) 62.9 % 47-70 [facility] Potassium [Moles/Vol] 3.6 mmol/L 3.5-5.1 [facility] Protein [Mass/Vol] 6.8 g/dL 6.4-8.2 [facility] Sodium [Moles/Vol] 143 mmol/L 136-145 [facility] WBC (Bld) [#/Vol] 5.5 10*3/uL 4.4-11.0 [facility] Blood erythrocytes count (nu mber/volume)Ordered By: Dom Chaidez on 03-05-2023 RBC (Bld) [#/Vol] 4.16 10*6/uL 4.6-6.2 [facility] Blood hemoglobin measurement (mass/volume)Ordered By: Dom Chaidez on 03-05-2023 Hemoglobin (Bld) [Mass/Vol] 11.7 g/dL 13.0-16.5 [facility] Blood lymphocytes/100 leukoc ytesOrdered By: Dom Chaidez on 03-05-2023 Lymphocytes/100 WBC (Bld) 24.2 % 19-41 [facility] Blood monocytes/100 leukocyt esOrdered By: Dom Chaidez on 03-05-2023 Monocytes/100 WBC (Bld) 7.7 % 0-10 [facility] Blood platelet mean volumeOr dered By: Dom Chaidez on 03-05-2023 Platelet mean volume (Bld) [Entitic vol] 9.9 fL 6.2-12.0 [facility] Determination of erythrocyte mean corpuscular volume (MCV)Ordered By: Dom Chaidez on 03-05-2023 MCV (RBC) [Entitic vol] 89.4 fL 80-94 [facility] Hematocrit Auto (Bld) [Volum e fraction]Ordered By: Dom Chaidez on 03-05-2023 Hematocrit (Bld) [Volume fraction] 37.2 % 40-54 [facility] Laboratory - Chemistry and C hemistry - challengeOrdered By: Dom Chaidez on 03-05-2023 ALP [Catalytic activity/Vol] 96 U/L 45-117 [facility] ALT [Catalytic activity/Vol] 22 U/L 16-61 [facility] CO2 [Moles/Vol] 30.0 mmol/L 21.0-32.0 [facility] Globulin (S) [Mass/Vol] 4.3 g/dL 2.2-4.2 [facility] Urea nitrogen/Creatinine [Mass ratio] 21.9 mg/mg 10-20 [facility] Laboratory - Hematology and Cell countsOrdered By: Dom Chaidez on 03-05-2023 Erythrocyte distribution width (RBC) [Entitic vol] 49.7 fL 35.1-43.9 [facility] Erythrocyte distribution width (RBC) [Ratio] 15.2 % 11.6-14.6 [facility] Immature granulocytes/100 WBC (Bld) 0.200 % 0.0-0.9 [facility] Comment on above: IG% - Immature Granu locytes (promyelocytes, myelocytes and metamyelocytes) > 1% indicates that a LEFT SHIFT is Present. MCH (RBC) [Entitic mass] 28.1 pg 27.0-32.0 [facility] Nucleated RBC/100 WBC (Bld) [Ratio] 0 % 0-5 [facility] MCHC Auto (RBC) [Mass/Vol]Or dered By: Dom Chaidez on 03-05-2023 MCHC (RBC) [Mass/Vol] 31.5 g/dL 32-36 [facility] No Panel InformationOrdered By: Dom Chaidez on 03-05-2023 Estimated GFR (MDRD) Amer 126 mL/min >60 [facility] Comment on above: GFR Calc Estimated GFR (MDRD) Non-Af Amer 104 mL/min >60 [facility] Comment on above: Non- GFR Calc Platelets bldOrdered By: Saji Chaidez on 03-05-2023 Platelets (Bld) [#/Vol] 283 10*3/uL 150-450 [facility] Serum or plasma albumin gracie urement (mass/volume)Ordered By: Dom Chaidez on 03-05-2023 Albumin [Mass/Vol] 2.5 g/dL 3.2-5.0 [facility] Serum or plasma albumin/glob ulin mass ratioOrdered By: Dom Chaidez on 03-05-2023 Albumin/Globulin [Mass ratio] 0.6 {ratio} 0.9-2.4 [facility] Serum or plasma calcium gracie urement (mass/volume)Ordered By: Dom Chaidez on 03-05-2023 Calcium [Mass/Vol] 9.2 mg/dL 8.5-10.1 [facility] Serum or plasma creatinine m easurement (mass/volume)Ordered By: Dom Chaidez on 03-05-2023 Creatinine [Mass/Vol] 0.78 mg/dL 0.70-1.30 [facility] Comment on above: The validity of the calculated GFR & GFRAA in patients over 70 years has not been determined. Clinical correlation is essential. Serum or plasma urea nitroge n measurement (mass/volume)Ordered By: Dom Chaidez on 03-05-2023 Urea nitrogen [Mass/Vol] 17 mg/dL -18 [facility] Thin prep Papanicolaou smear with manual screeningOrdered By: Dom Chaidez on 03-05-2023 Thin prep Papanicolaou smear with manual screening 13 U/L 15-37 [facility] Thin prep Papanicolaou smear with manual screening 6 5-15 [facility] Absolute lymphocyte countOrd ered By: Edward Elizabeth on 02-25-2023 Lymphocytes Auto (Unsp spec) [#/Vol] 1.05 10*3/uL 0.83-4.51 [facility] Basophil percentageOrdered B y: Edward Elizabeth on 02-25-2023 Basophils/100 WBC (Bld) 0.1 % 0-1 [facility] Bilirubin [Mass/Vol] 0.40 mg/dL 0.20-1.00 [facility] Comment on above: For patients on eltr ombopag therapy, use of Dimension [place] TBIL is not recommended. Chloride [Moles/Vol] 99 mmol/L 98-107 [facility] Eosinophils/100 WBC (Bld) 1.2 % 0-5 [facility] Glucose [Mass/Vol] 159 mg/dL 74-106 [facility] Comment on above: Fasting Glucose resu lt greater than or equal to 126 mg/dL suggests DIABETES MELLITUS per A.D.A. criteria. Neutrophils (Bld) [#/Vol] 6.5 10*3/uL 2.0-7.7 [facility] Neutrophils/100 WBC (Bld) 79.7 % 47-70 [facility] Potassium [Moles/Vol] 3.2 mmol/L 3.5-5.1 [facility] Protein [Mass/Vol] 5.2 g/dL 6.4-8.2 [facility] Sodium [Moles/Vol] 136 mmol/L 136-145 [facility] WBC (Bld) [#/Vol] 8.2 10*3/uL 4.4-11.0 [facility] Blood erythrocytes count (nu mber/volume)Ordered By: Edward Elizabeth on 02-25-2023 RBC (Bld) [#/Vol] 3.80 10*6/uL 4.6-6.2 [facility] Blood hemoglobin measurement (mass/volume)Ordered By: Edward Elizabeth on 02-25-2023 Hemoglobin (Bld) [Mass/Vol] 10.8 g/dL 13.0-16.5 [facility] Blood lymphocytes/100 leukoc ytesOrdered By: Edward Elizabeth on 02-25-2023 Lymphocytes/100 WBC (Bld) 12.8 % 19-41 [facility] Blood monocytes/100 leukocyt esOrdered By: Edward Elizabeth on 02-25-2023 Monocytes/100 WBC (Bld) 5.8 % 0-10 [facility] Blood platelet mean volumeOr dered By: Edward Elizabeth on 02-25-2023 Platelet mean volume (Bld) [Entitic vol] 10.0 fL 6.2-12.0 [facility] Determination of erythrocyte mean corpuscular volume (MCV)Ordered By: Edward Elizabeth on 02-25-2023 MCV (RBC) [Entitic vol] 87.6 fL 80-94 [facility] Hematocrit Auto (Bld) [Volum e fraction]Ordered By: Edward Elizabeth on 02-25-2023 Hematocrit (Bld) [Volume fraction] 33.3 % 40-54 [facility] Laboratory - Chemistry and C hemistry - challengeOrdered By: Edward Elizabeth on 02-25-2023 ALP [Catalytic activity/Vol] 82 U/L 45-117 [facility] ALT [Catalytic activity/Vol] 26 U/L 16-61 [facility] CO2 [Moles/Vol] 32.0 mmol/L 21.0-32.0 [facility] Globulin (S) [Mass/Vol] 3.2 g/dL 2.2-4.2 [facility] Urea nitrogen/Creatinine [Mass ratio] 37.3 mg/mg 10-20 [facility] Laboratory - Hematology and Cell countsOrdered By: Edward Elizabeth on 02-25-2023 Erythrocyte distribution width (RBC) [Entitic vol] 46.9 fL 35.1-43.9 [facility] Erythrocyte distribution width (RBC) [Ratio] 14.6 % 11.6-14.6 [facility] Immature granulocytes/100 WBC (Bld) 0.400 % 0.0-0.9 [facility] Comment on above: IG% - Immature Granu locytes (promyelocytes, myelocytes and metamyelocytes) > 1% indicates that a LEFT SHIFT is Present. MCH (RBC) [Entitic mass] 28.4 pg 27.0-32.0 [facility] Nucleated RBC/100 WBC (Bld) [Ratio] 0 % 0-5 [facility] MCHC Auto (RBC) [Mass/Vol]Or dered By: Edward Elizabeth on 02-25-2023 MCHC (RBC) [Mass/Vol] 32.4 g/dL 32-36 [facility] No Panel InformationOrdered By: Edward Elizabeth on 02-25-2023 Estimated Creatinine Clearance Calc 40.51 ml/min [facility] Estimated GFR (MDRD) Amer 95 mL/min >60 [facility] Comment on above: GFR Calc Estimated GFR (MDRD) Non-Af Amer 78 mL/min >60 [facility] Comment on above: Non- GFR Calc Platelets bldOrdered By: Alexa Elizabeth on 02-25-2023 Platelets (Bld) [#/Vol] 285 10*3/uL 150-450 [facility] Serum or plasma albumin gracie urement (mass/volume)Ordered By: Edward Elizabeth on 02-25-2023 Albumin [Mass/Vol] 2.0 g/dL 3.2-5.0 [facility] Serum or plasma albumin/glob ulin mass ratioOrdered By: Edward Elizabeth on 02-25-2023 Albumin/Globulin [Mass ratio] 0.6 {ratio} 0.9-2.4 [facility] Serum or plasma calcium gracie urement (mass/volume)Ordered By: Edward Elizabeth on 02-25-2023 Calcium [Mass/Vol] 8.2 mg/dL 8.5-10.1 [facility] Serum or plasma creatinine m easurement (mass/volume)Ordered By: Edward Elizabeth on 02-25-2023 Creatinine [Mass/Vol] 0.99 mg/dL 0.70-1.30 [facility] Comment on above: The validity of the calculated GFR & GFRAA in patients over 70 years has not been determined. Clinical correlation is essential. Serum or plasma urea nitroge n measurement (mass/volume)Ordered By: Edward Elizabeth on 02-25-2023 Urea nitrogen [Mass/Vol] 37 mg/dL 7-18 [facility] Thin prep Papanicolaou smear with manual screeningOrdered By: Edward Elizabeth on 02-25-2023 Thin prep Papanicolaou smear with manual screening 13 U/L 15-37 [facility] Thin prep Papanicolaou smear with manual screening 5 5-15 [facility] Basophil percentageOrdered B y: Temitope Son on 02-13-2023 Basophil percentage 3.0 mg/dL 2.5-4.9 [facility] Blood manual differential co mment interpretation (narrative result)Ordered By: Temitope Son on 02-13-2023 Manual differential comment Sarmad (Bld) [Interp] SCANNED [facility] Glucose Glucometer (BldC) [M ass/Vol]Ordered By: Sukhi Alfredo on 02-13-2023 Glucose [Mass/Vol] 166 mg/dL 74-106 [facility] Comment on above: MANAGEMENT OF PATIEN T CARE PER NURSING PROTOCOL Laboratory - Chemistry and C hemistry - challengeOrdered By: Temitope Son on 02-13-2023 Magnesium [Mass/Vol] 2.0 mg/dL 1.6-2.6 [facility] Basophil percentageOrdered B y: Kimberly Cowart on 02-12-2023 Lactate [Moles/Vol] 1.4 mmol/L 0.4-2.0 [facility] Direct bilirubinOrdered By: Kimberly Cowart on 02-12-2023 Bilirubin.direct [Mass/Vol] 0.42 mg/dL 0.00-0.30 [facility] Laboratory - Chemistry and C hemistry - challengeOrdered By: Kimberyl Cowart on 02-12-2023 Lipase [Catalytic activity/Vol] 65 U/L 13-75 [facility] Comment on above: Please note:LIPASE r evised reference range effective 22. New Lipase methodology. Expected to produce lower values than the previous assay method. NEW Reference Range: 13 - 75 U/L No Panel InformationOrdered By: Temitope Son on 02-12-2023 Streptococcus pneumoniae Antigen ([facility] Methicillin-Resist S.aureus DNA PCR Negative Negative [facility] Streptococcus pneumoniae Antigen ([facility] SARS-CoV-2 (COVID-19) Ag IA. rapid Ql (Resp)Ordered By: Kimberly Cowart on 02-12-2023 SARS-CoV-2 Antigen (Rapid) SARS-CoV-2 (COVID 19) [facility] SARS-CoV-2 Antigen (Rapid) SARS-CoV-2 (COVID 19) [facility] Urine Legionella pneumophila antigen detectionOrdered By: Temitope Son on 02-12-2023 L. pneumophila Ag Ql (U) [facility] L. pneumophila Ag Ql (U) [facility] Absolute lymphocyte countOrd ered By: Dom Chaidez on 01-24-2023 Lymphocytes Auto (Unsp spec) [#/Vol] 1.06 10*3/uL 0.83-4.51 [facility] Basophil percentageOrdered B y: Dom Chaidez on 01-24-2023 Basophils/100 WBC (Bld) 0.6 % 0-1 [facility] Chloride [Moles/Vol] 106 mmol/L 98-107 [facility] Eosinophils/100 WBC (Bld) 3.8 % 0-5 [facility] Glucose [Mass/Vol] 89 mg/dL 74-106 [facility] Neutrophils (Bld) [#/Vol] 4.8 10*3/uL 2.0-7.7 [facility] Neutrophils/100 WBC (Bld) 69.0 % 47-70 [facility] Potassium [Moles/Vol] 4.2 mmol/L 3.5-5.1 [facility] Sodium [Moles/Vol] 138 mmol/L 136-145 [facility] WBC (Bld) [#/Vol] 6.9 10*3/uL 4.4-11.0 [facility] Blood erythrocytes count (nu mber/volume)Ordered By: Dom Chaidez on 01-24-2023 RBC (Bld) [#/Vol] 4.36 10*6/uL 4.6-6.2 [facility] Blood hemoglobin measurement (mass/volume)Ordered By: Dom Chaidez on 01-24-2023 Hemoglobin (Bld) [Mass/Vol] 12.5 g/dL 13.0-16.5 [facility] Blood lymphocytes/100 leukoc ytesOrdered By: Dom Chaidez on 01-24-2023 Lymphocytes/100 WBC (Bld) 15.4 % 19-41 [facility] Blood monocytes/100 leukocyt esOrdered By: Dom Chaidez on 01-24-2023 Monocytes/100 WBC (Bld) 10.9 % 0-10 [facility] Blood platelet mean volumeOr dered By: Dom Chaidez on 01-24-2023 Platelet mean volume (Bld) [Entitic vol] 10.4 fL 6.2-12.0 [facility] Determination of erythrocyte mean corpuscular volume (MCV)Ordered By: Dom Chaidez on 01-24-2023 MCV (RBC) [Entitic vol] 96.1 fL 80-94 [facility] Hematocrit Auto (Bld) [Volum e fraction]Ordered By: Dom Chaidez on 01-24-2023 Hematocrit (Bld) [Volume fraction] 41.9 % 40-54 [facility] Iron measurement (mass/mass) Ordered By: Dom Chaidez on 01-24-2023 Iron (Unsp spec) [Mass/Mass] 48 ug/dL 65-175 [facility] Laboratory - Chemistry and C hemistry - challengeOrdered By: Dom Chaidez on 01-24-2023 CO2 [Moles/Vol] 29.0 mmol/L 21.0-32.0 [facility] Urea nitrogen/Creatinine [Mass ratio] 16.4 mg/mg 10-20 [facility] Laboratory - Hematology and Cell countsOrdered By: Dom Chaidez on 01-24-2023 Erythrocyte distribution width (RBC) [Entitic vol] 54.1 fL 35.1-43.9 [facility] Erythrocyte distribution width (RBC) [Ratio] 15.3 % 11.6-14.6 [facility] Immature granulocytes/100 WBC (Bld) 0.300 % 0.0-0.9 [facility] Comment on above: IG% - Immature Granu locytes (promyelocytes, myelocytes and metamyelocytes) > 1% indicates that a LEFT SHIFT is Present. MCH (RBC) [Entitic mass] 28.7 pg 27.0-32.0 [facility] Nucleated RBC/100 WBC (Bld) [Ratio] 0 % 0-5 [facility] MCHC Auto (RBC) [Mass/Vol]Or dered By: Dom Chaidez on 01-24-2023 MCHC (RBC) [Mass/Vol] 29.8 g/dL 32-36 [facility] Comment on above: Delta: 32.6 on 01/2216 No Panel InformationOrdered By: Dom Chaidez on 01-24-2023 Estimated GFR (MDRD) Amer 84 mL/min >60 [facility] Comment on above: GFR Calc Estimated GFR (MDRD) Non-Af Amer 70 mL/min >60 [facility] Comment on above: Non- GFR Calc Total Iron Binding Capacity 345 ug/dL 250-450 [facility] Platelets bldOrdered By: Saji Chaidez on 01-24-2023 Platelets (Bld) [#/Vol] 272 10*3/uL 150-450 [facility] Serum or plasma calcium gracie urement (mass/volume)Ordered By: Dom Chaidez on 01-24-2023 Calcium [Mass/Vol] 8.6 mg/dL 8.5-10.1 [facility] Serum or plasma creatinine m easurement (mass/volume)Ordered By: Dom Chaidez on 01-24-2023 Creatinine [Mass/Vol] 1.10 mg/dL 0.70-1.30 [facility] Comment on above: The validity of the calculated GFR & GFRAA in patients over 70 years has not been determined. Clinical correlation is essential. Serum or plasma ferritin adelina surement (mass/volume)Ordered By: Dom Chaidez on 01-24-2023 Ferritin [Mass/Vol] 706 ng/mL 26-388 [facility] Serum or plasma urea nitroge n measurement (mass/volume)Ordered By: Dom Chaidez on 01-24-2023 Urea nitrogen [Mass/Vol] 18 mg/dL 7-18 [facility] Thin prep Papanicolaou smear with manual screeningOrdered By: Dom Chaidez on 01-24-2023 Thin prep Papanicolaou smear with manual screening 3 5-15 [facility] Absolute lymphocyte countOrd ered By: Lizzy Meza on 01-22-2023 Lymphocytes Auto (Unsp spec) [#/Vol] 0.97 10*3/uL 0.83-4.51 [facility] Basophil percentageOrdered B y: Lizzy Meza on 01-22-2023 Basophils/100 WBC (Bld) 0.4 % 0-1 [facility] Chloride [Moles/Vol] 106 mmol/L 98-107 [facility] Eosinophils/100 WBC (Bld) 5.5 % 0-5 [facility] Glucose [Mass/Vol] 75 mg/dL 74-106 [facility] Neutrophils (Bld) [#/Vol] 6.1 10*3/uL 2.0-7.7 [facility] Neutrophils/100 WBC (Bld) 73.0 % 47-70 [facility] Potassium [Moles/Vol] 4.5 mmol/L 3.5-5.1 [facility] Sodium [Moles/Vol] 136 mmol/L 136-145 [facility] WBC (Bld) [#/Vol] 8.4 10*3/uL 4.4-11.0 [facility] Blood erythrocytes count (nu mber/volume)Ordered By: Lizzy Meza on 01-22-2023 RBC (Bld) [#/Vol] 3.79 10*6/uL 4.6-6.2 [facility] [facility] Blood hemoglobin measurement (mass/volume)Ordered By: Lizzy Meza on 01-22-2023 Hemoglobin (Bld) [Mass/Vol] 11.3 g/dL 13.0-16.5 [facility] Blood lymphocytes/100 leukoc ytesOrdered By: Lizzy Meza on 01-22-2023 Lymphocytes/100 WBC (Bld) 11.6 % 19-41 [facility] Blood monocytes/100 leukocyt esOrdered By: Lizzy Meza on 01-22-2023 Monocytes/100 WBC (Bld) 9.1 % 0-10 [facility] Blood platelet mean volumeOr dered By: Lizzy Meza on 01-22-2023 Platelet mean volume (Bld) [Entitic vol] 10.5 fL 6.2-12.0 [facility] Determination of erythrocyte mean corpuscular volume (MCV)Ordered By: Lizzy Meza on 01-22-2023 MCV (RBC) [Entitic vol] 91.6 fL 80-94 [facility] Hematocrit Auto (Bld) [Volum e fraction]Ordered By: Lizzy Meza on 01-22-2023 Hematocrit (Bld) [Volume fraction] 34.7 % 40-54 [facility] Laboratory - Chemistry and C hemistry - challengeOrdered By: Lizzy Meza on 01-22-2023 CO2 [Moles/Vol] 24.0 mmol/L 21.0-32.0 [facility] Urea nitrogen/Creatinine [Mass ratio] 16.5 mg/mg 10-20 [facility] Laboratory - Hematology and Cell countsOrdered By: Lizzy Meza on 01-22-2023 Erythrocyte distribution width (RBC) [Entitic vol] 50.9 fL 35.1-43.9 [facility] Erythrocyte distribution width (RBC) [Ratio] 15.2 % 11.6-14.6 [facility] Immature granulocytes/100 WBC (Bld) 0.400 % 0.0-0.9 [facility] Comment on above: IG% - Immature Granu locytes (promyelocytes, myelocytes and metamyelocytes) > 1% indicates that a LEFT SHIFT is Present. MCH (RBC) [Entitic mass] 29.8 pg 27.0-32.0 [facility] Nucleated RBC/100 WBC (Bld) [Ratio] 0 % 0-5 [facility] MCHC Auto (RBC) [Mass/Vol]Or dered By: Lizzy Meza on 01-22-2023 MCHC (RBC) [Mass/Vol] 32.6 g/dL 32-36 [facility] No Panel InformationOrdered By: Lizzy Meza on 01-22-2023 Estimated Creatinine Clearance Calc 36.78 ml/min [facility] Estimated GFR (MDRD) Amer 71 mL/min >60 [facility] Comment on above: GFR Calc Estimated GFR (MDRD) Non-Af Amer 59 mL/min >60 [facility] Comment on above: Non- GFR Calc Platelets bldOrdered By: Marcelo Meza on 01-22-2023 Platelets (Bld) [#/Vol] 188 10*3/uL 150-450 [facility] Serum or plasma calcium gracie urement (mass/volume)Ordered By: Lizzy Meza on 01-22-2023 Calcium [Mass/Vol] 7.9 mg/dL 8.5-10.1 [facility] Serum or plasma creatinine m easurement (mass/volume)Ordered By: Lizzy Meza on 01-22-2023 Creatinine [Mass/Vol] 1.27 mg/dL 0.70-1.30 [facility] Comment on above: The validity of the calculated GFR & GFRAA in patients over 70 years has not been determined. Clinical correlation is essential. Serum or plasma urea nitroge n measurement (mass/volume)Ordered By: Lizzy Meza on 01-22-2023 Urea nitrogen [Mass/Vol] 21 mg/dL 7-18 [facility] Thin prep Papanicolaou smear with manual screeningOrdered By: Lizzy Meza on 01-22-2023 Thin prep Papanicolaou smear with manual screening 6 5-15 [facility] Basophil percentageOrdered B y: Lizzy Meza on 01-20-2023 Basophil percentage 3.6 mg/dL 2.5-4.9 [facility] Laboratory - Chemistry and C hemistry - challengeOrdered By: Lizzy Meza on 01-20-2023 Magnesium [Mass/Vol] 1.6 mg/dL 1.6-2.6 [facility] Basophil percentageOrdered B y: Lizzy Meza on 01-19-2023 Bilirubin [Mass/Vol] 0.60 mg/dL 0.20-1.00 [facility] Comment on above: For patients on eltr ombopag therapy, use of Dimension [place] TBIL is not recommended. Protein [Mass/Vol] 4.9 g/dL 6.4-8.2 [facility] Blood manual differential co mment interpretation (narrative result)Ordered By: Lizzy Meza on 01-19-2023 Manual differential comment Sarmad (Bld) [Interp] SCANNED [facility] Laboratory - Chemistry and C hemistry - challengeOrdered By: Lizzy Meza on 01-19-2023 ALP [Catalytic activity/Vol] 52 U/L 45-117 [facility] ALT [Catalytic activity/Vol] 120 U/L 16-61 [facility] Globulin (S) [Mass/Vol] 2.6 g/dL 2.2-4.2 [facility] No Panel InformationOrdered By: Lizzy Meza on 01-19-2023 Thyroid Stimulating Hormone (TSH) 0.82 uIU/mL 0.358-3.74 [facility] Review by pathologistOrdered By: Lizzy Meza on 01-19-2023 Pathologist review Sarmad (Unsp spec) [Interp] Reviewed [facility] Comment on above: Previous reported re sult: Lilia rubi Edited by: RGOOD on 01/22/23:1256Pancytopenia.Leukopenia Severe Macrocytic anemia.Normocytic anemia.ThrombocytopeniaClinical correlation necessary.Nathen Tran M.D. 01/22/23 AMENDED REPORT 01/22/23 1256 PATH REV previously reported as: Lilia rubi Serum or plasma albumin gracie urement (mass/volume)Ordered By: Lizzy Meza on 01-19-2023 Albumin [Mass/Vol] 2.3 g/dL 3.2-5.0 [facility] Serum or plasma albumin/glob ulin mass ratioOrdered By: Lizzy Meza on 01-19-2023 Albumin/Globulin [Mass ratio] 0.9 {ratio} 0.9-2.4 [facility] Thin prep Papanicolaou smear with manual screeningOrdered By: Lizzy Meza on 01-19-2023 Thin prep Papanicolaou smear with manual screening 123 U/L 15-37 [facility] Basophil percentageOrdered B y: Kimberly Cowart on 01-18-2023 Basophil percentage 0-5 SEEN /hpf 0-5 [facility] Lactate [Moles/Vol] 1.5 mmol/L 0.4-2.0 [facility] Bilirubin Test strip Ql (U)O rdered By: Kimberly Cowart on 01-18-2023 Bilirubin Ql (U) Negative Negative [facility] Culture, urineOrdered By: Jama Cowart on 01-18-2023 Bacteria identified Cx Nom (U) Culture exhibits no growth. [facility] Bacteria identified Cx Nom (U) Culture exhibits no growth. [facility] Direct bilirubinOrdered By: Kimberly Cowart on 01-18-2023 Bilirubin.direct [Mass/Vol] 0.15 mg/dL 0.00-0.30 [facility] Hemoglobin in reticulocytes (mass per reticulocyte)Ordered By: Lizzy Meza on 01-18-2023 Hemoglobin (Reticulocytes) [Entitic mass] 28.7 pg 30-35 [facility] Hyaline casts LM.LPF (Urine sed) [#/Area]Ordered By: Kimberly Cowart on 01-18-2023 Hyaline casts (Urine sed) [#/Area] 0 /[LPF] 0-5 [facility] Hypochromatic red blood cell detectionOrdered By: Kimberly Cowart on 01-18-2023 Hypochromia Ql (Bld) 1+ [facility] INR in Blood by Coagulation assayOrdered By: Kimberly Cowart on 01-18-2023 INR Coag (Bld) [Relative time] 1.3 {INR} [facility] Iron measurement (mass/mass) Ordered By: Lizzy Meza on 01-18-2023 Iron (Unsp spec) [Mass/Mass] 15 ug/dL 65-175 [facility] Ketones Test strip Ql (U)Ord ered By: Kimberly Cowart on 01-18-2023 Ketones Ql (U) 5 mg/dl Negative [facility] Laboratory - Chemistry and C hemistry - challengeOrdered By: Lizzy Meza on 01-18-2023 Lipase [Catalytic activity/Vol] 37 U/L 13-75 [facility] Comment on above: Please note:LIPASE r evised reference range effective 22. New Lipase methodology. Expected to produce lower values than the previous assay method. NEW Reference Range: 13 - 75 U/L Laboratory - CoagulationOrde red By: Kimberly Cowart on 01-18-2023 aPTT Coag (Bld) [Time] 27.4 s 24.1-36.2 [facility] PT Coag (PPP) [Time] 15.8 s 11.7-14.9 [facility] Laboratory - Hematology and Cell countsOrdered By: Kimberly Cowart on 01-18-2023 Anisocytosis Ql (Bld) 2+ [facility] Laboratory - Microbiology an d Antimicrobial susceptibilityOrdered By: Kimberly Cowart on 01-18-2023 Bacteria identified Cx Nom (Bld) No growth in 5 days. [facility] Bacteria identified Cx Nom (Bld) No growth in 5 days. [facility] Macrocytes detectionOrdered By: Kimberly Cowart on 01-18-2023 Macrocytes Ql (Bld) 1+ [facility] Mucus LM Ql (Urine sed)Order ed By: Kimberly Cowart on 01-18-2023 Mucus Ql (Urine sed) 0 SEEN /hpf [facility] Nitrite Test strip Ql (U)Ord ered By: Kimberly Cowart on 01-18-2023 Nitrite Ql (U) Negative Negative [facility] No Panel InformationOrdered By: Lizzy Meza on 01-18-2023 Immature Reticulocyte Fraction 30.20 % 3.00-15.90 [facility] Reticulocyte Count 4.88 % 0.5-1.5 [facility] Total Iron Binding Capacity 290 ug/dL 250-450 [facility] Vitamin B12 Level < 45 pg/mL 211-911 [facility] No Panel InformationOrdered By: Kimberly Cowart on 01-18-2023 Troponin I High Sensitivity 15 pg/mL 3.0-78.0 [facility] Comment on above: Please Note: New Radha t Units and Gender Specific Reference Ranges. For more information see Policy Stat Procedure [place] High Sensitivity Troponin (TNIH) and attachments. Protein Test strip Ql (U)Ord ered By: Kimberly Cowart on 01-18-2023 Protein Ql (U) Negative Negative [facility] Serum or plasma ferritin adelina surement (mass/volume)Ordered By: Lizzy Meza on 01-18-2023 Ferritin [Mass/Vol] 54 ng/mL 26-388 [facility] Serum or plasma folate measu rement (mass/volume)Ordered By: Lizzy Meza on 01-18-2023 Folate [Mass/Vol] 9.60 ng/mL 3.1-55.4 [facility] Serum or plasma iron saturat ion measurement (mass fraction)Ordered By: Lizzy Meza on 01-18-2023 Iron saturation [Mass fraction] 5.2 % 15.0-55.0 [facility] Squamous epithelial cells de tection in urine sediment by light microscopyOrdered By: Kimberly Cowart on 01-18-2023 Epithelial cells.squamous LM Ql (Urine sed) 0 SEEN /hpf 0-5 [facility] Stool gastrointestinal hemog lobin detection by immunologic methodOrdered By: Kimberly Cowart on 01-18-2023 Lower GI hemoglobin IA Ql (Stl) [facility] Lower GI hemoglobin IA Ql (Stl) [facility] Thin prep Papanicolaou smear with manual screeningOrdered By: Kimberly Cowart on 01-18-2023 Thin prep Papanicolaou smear with manual screening 1+ [facility] Urine blood detectionOrdered By: Kimberly Cowart on 01-18-2023 RBC Ql (U) 10 /ul Negative [facility] RBC Ql (U) 0 SEEN /hpf 0-5 [facility] Urine clarityOrdered By: Emma Cowart on 01-18-2023 Clarity (U) Sl. Cloudy Clear [facility] Urine color determinationOrd ered By: Kimberly Cowart on 09-02-2023 Color (U) Yellow Yellow [facility] Urine glucose detectionOrder ed By: Kimberly Cowart on 01-18-2023 Glucose Ql (U) Normal mg/dl Normal [facility] Urine leukocyte esterase det ection by dipstickOrdered By: Kimberly Cowart on 01-18-2023 Leukocyte esterase Test strip Ql (U) 100 /ul Negative [facility] Urine pHOrdered By: Kimberly Cowart on 01-18-2023 pH (U) 5.0 [pH] 5.0 - 8.0 [facility] Urine sediment bacteria coun t by microscopy (number/high power field)Ordered By: Kimberly Cowart on 01-18-2023 Bacteria LM.HPF (Urine sed) [#/Area] 0 /[HPF] None Seen [facility] Urine specific gravity measu rementOrdered By: Kimberly Cowart on 01-18-2023 Specific gravity (U) [Rel density] 1.020 1.002-1.03 0 [facility] Urobilinogen Auto test strip Ql (U)Ordered By: Kimberly Cowart on 01-18-2023 Urobilinogen Ql (U) Normal mg/dl Normal [facility] Absolute lymphocyte countOrd ered By: Dom Chaidez on 11-27-2022 Lymphocytes Auto (Unsp spec) [#/Vol] 1.14 10*3/uL 0.83-4.51 [facility] Basophil percentageOrdered B y: Dom Chaidez on 11-27-2022 Basophil percentage 3.4 mg/dL 2.5-4.9 [facility] Basophils/100 WBC (Bld) 0.5 % 0-1 [facility] Bilirubin [Mass/Vol] 0.10 mg/dL 0.20-1.00 [facility] Comment on above: For patients on eltr ombopag therapy, use of Dimension [place] TBIL is not recommended. Chloride [Moles/Vol] 103 mmol/L 98-107 [facility] Cholesterol [Mass/Vol] 135 mg/dL <200 [facility] Comment on above: <200 mg/dL Desirable 200-240 mg/dL Borderline >240 mg/dL High Risk Eosinophils/100 WBC (Bld) 2.1 % 0-5 [facility] Glucose [Mass/Vol] 105 mg/dL 74-106 [facility] Comment on above: Fasting Glucose resu lt from 100 to 125 mg/dL suggests IMPAIRED HOMEOSTASIS per A.D.A. criteria. Neutrophils (Bld) [#/Vol] 5.7 10*3/uL 2.0-7.7 [facility] Neutrophils/100 WBC (Bld) 74.3 % 47-70 [facility] Potassium [Moles/Vol] 3.8 mmol/L 3.5-5.1 [facility] Protein [Mass/Vol] 8.0 g/dL 6.4-8.2 [facility] Sodium [Moles/Vol] 136 mmol/L 136-145 [facility] Triglyceride [Mass/Vol] 61 mg/dL <199 [facility] Comment on above: The drugs N-Acetylcy steine and Metamizole may falsely depress this assay.Serum Triglycerides Reference Interval Normal <150 mg/dL Borderline high 150 - 199 mg/dL High 200 - 499 mg/dL Very High > or = 500 mg/dL WBC (Bld) [#/Vol] 7.6 10*3/uL 4.4-11.0 [facility] Blood erythrocytes count (nu mber/volume)Ordered By: Dom Chaidez on 11-27-2022 RBC (Bld) [#/Vol] 3.20 10*6/uL 4.6-6.2 [facility] Blood hemoglobin measurement (mass/volume)Ordered By: Dom Chaidez on 11-27-2022 Hemoglobin (Bld) [Mass/Vol] 9.5 g/dL 13.0-16.5 [facility] Blood lymphocytes/100 leukoc ytesOrdered By: Dom Chaidez on 11-27-2022 Lymphocytes/100 WBC (Bld) 14.9 % 19-41 [facility] Blood monocytes/100 leukocyt esOrdered By: Dom Chaidez on 11-27-2022 Monocytes/100 WBC (Bld) 7.9 % 0-10 [facility] Blood platelet mean volumeOr dered By: Dom Chaidez on 11-27-2022 Platelet mean volume (Bld) [Entitic vol] 10.2 fL 6.2-12.0 [facility] Determination of erythrocyte mean corpuscular volume (MCV)Ordered By: Dom Chaidez on 11-27-2022 MCV (RBC) [Entitic vol] 99.1 fL 80-94 [facility] Hematocrit Auto (Bld) [Volum e fraction]Ordered By: Dom Chaidez on 11-27-2022 Hematocrit (Bld) [Volume fraction] 31.7 % 40-54 [facility] Iron measurement (mass/mass) Ordered By: Dom Chaidez on 11-27-2022 Iron (Unsp spec) [Mass/Mass] 184 ug/dL 65-175 [facility] Laboratory - Chemistry and C hemistry - challengeOrdered By: Dom Chaidez on 11-27-2022 ALP [Catalytic activity/Vol] 93 U/L 45-117 [facility] ALT [Catalytic activity/Vol] 17 U/L 16-61 [facility] CO2 [Moles/Vol] 26.0 mmol/L 21.0-32.0 [facility] Globulin (S) [Mass/Vol] 4.6 g/dL 2.2-4.2 [facility] Urea nitrogen/Creatinine [Mass ratio] 20.5 mg/mg 10-20 [facility] Laboratory - Hematology and Cell countsOrdered By: Dom Chaidez on 11-27-2022 Erythrocyte distribution width (RBC) [Entitic vol] 47.8 fL 35.1-43.9 [facility] Erythrocyte distribution width (RBC) [Ratio] 13.1 % 11.6-14.6 [facility] Immature granulocytes/100 WBC (Bld) 0.300 % 0.0-0.9 [facility] Comment on above: IG% - Immature Granu locytes (promyelocytes, myelocytes and metamyelocytes) > 1% indicates that a LEFT SHIFT is Present. MCH (RBC) [Entitic mass] 29.7 pg 27.0-32.0 [facility] Nucleated RBC/100 WBC (Bld) [Ratio] 0 % 0-5 [facility] MCHC Auto (RBC) [Mass/Vol]Or dered By: Dom Chaidez on 11-27-2022 MCHC (RBC) [Mass/Vol] 30.0 g/dL 32-36 [facility] No Panel InformationOrdered By: Dom Chaidez on 11-27-2022 Estimated GFR (MDRD) Amer 59 mL/min >60 [facility] Comment on above: GFR Calc Estimated GFR (MDRD) Non-Af Amer 48 mL/min >60 [facility] Comment on above: Non- GFR Calc Parathyroid Hormone (Intact) 27.9 pg/mL 18.4-80.1 [facility] Total Iron Binding Capacity 405 ug/dL 250-450 [facility] Vitamin D 25-Hydroxy 90.7 ng/mL [facility] Comment on above: Vitamin D 25(OH) Sta tus Range Deficiency <20 ng/mL (50nmol/L) Insufficiency 20 - 30 ng/mL (50 - 75 nmol/L) Sufficiency 30 - 100 ng/mL (75 - 250 nmol/L) Toxicity >100 ng/mL (>250 nmol/L) Platelets bldOrdered By: Saji Chaidez on 11-27-2022 Platelets (Bld) [#/Vol] 353 10*3/uL 150-450 [facility] Serum or plasma albumin gracie urement (mass/volume)Ordered By: Dom Chaidez on 11-27-2022 Albumin [Mass/Vol] 3.4 g/dL 3.2-5.0 [facility] Serum or plasma albumin/glob ulin mass ratioOrdered By: Dom Chaidez on 11-27-2022 Albumin/Globulin [Mass ratio] 0.7 {ratio} 0.9-2.4 [facility] Serum or plasma calcium gracie urement (mass/volume)Ordered By: Dom Chaidez on 11-27-2022 Calcium [Mass/Vol] 9.9 mg/dL 8.5-10.1 [facility] Serum or plasma cholesterol in HDL measurement (mass/volume)Ordered By: Dom Chaidez on 11-27-2022 Cholesterol in HDL [Mass/Vol] 77 mg/dL >40 [facility] Comment on above: The drugs N-Acetylcy steine and Metamizole may falsely depress this assay. Reference Range HDL <40 mg/dL Low HDL Cholesterol HDL >or= 60 mg/dL High HDL Cholesterol Serum or plasma cholesterol in VLDL measurement (mass/volume)Ordered By: Dom Chaidez on 07-12-2023 Cholesterol in VLDL [Mass/Vol] 12 mg/dL 5-40 [facility] Serum or plasma creatinine m easurement (mass/volume)Ordered By: Dom Chaidez on 11-27-2022 Creatinine [Mass/Vol] 1.51 mg/dL 0.70-1.30 [facility] Comment on above: The validity of the calculated GFR & GFRAA in patients over 70 years has not been determined. Clinical correlation is essential. Serum or plasma ferritin adelina surement (mass/volume)Ordered By: Dom Chaidez on 11-27-2022 Ferritin [Mass/Vol] 33 ng/mL 26-388 [facility] Serum or plasma iron saturat ion measurement (mass fraction)Ordered By: Dom Chaidez on 11-27-2022 Iron saturation [Mass fraction] 45.4 % 15.0-55.0 [facility] Serum or plasma low density lipoprotein (LDL) cholesterol measurement (mass/volume)Ordered By: Dom Chaidez on 11-27-2022 Cholesterol in LDL [Mass/Vol] 46 mg/dL 0-130 [facility] Serum or plasma urea nitroge n measurement (mass/volume)Ordered By: Dom Chaidez on 11-27-2022 Urea nitrogen [Mass/Vol] 31 mg/dL 7-18 [facility] Thin prep Papanicolaou smear with manual screeningOrdered By: Dom Chaidez on 11-27-2022 Thin prep Papanicolaou smear with manual screening 10 U/L 15-37 [facility] Thin prep Papanicolaou smear with manual screening 7 5-15 [facility] Whole blood hemoglobin A1c/t otal hemoglobin ratio (mass fraction)Ordered By: Dom Chaidez on 11-27-2022 HbA1c (Bld) [Mass fraction] % 3.8-5.6 [facility] Comment on above: Normal < 5.7 % Predi abetic 5.7 - 6.4 % Diabetic >or= 6.5 % Please note range changes. Basophil percentageOrdered B y: Lucy Fitch on 10-31-2022 Creatinine [Mass/Vol] 1.6 mg/dL 0.70-1.30 [facility] Laboratory - Chemistry and C hemistry - challengeOrdered By: Lucy Fitch on 10-31-2022 GFR/1.73 sq M.predicted among non-blacks MDRD (S/P/Bld) [Vol rate/Area] 47.0000 mL/min/{1.73_m2} >60 [facility] Basophil percentageOrdered B y: Lucy Fitch on 08-19-2022 WBC (Bld) [#/Vol] 8.7 10*3/uL 4.4-11.0 [facility] Blood erythrocytes count (nu mber/volume)Ordered By: Lucy Little on 08-19-2022 RBC (Bld) [#/Vol] 3.65 10*6/uL 4.6-6.2 [facility] Blood hemoglobin measurement (mass/volume)Ordered By: [place] Little on 08-19-2022 Hemoglobin (Bld) [Mass/Vol] 10.9 g/dL 13.0-16.5 [facility] Blood platelet mean volumeOr dered By: Lucy Little on 08-19-2022 Platelet mean volume (Bld) [Entitic vol] 10.2 fL 6.2-12.0 [facility] Determination of erythrocyte mean corpuscular volume (MCV)Ordered By: [facility] by [facility] ansonkimberlee on 08-19-2022 MCV (RBC) [Entitic vol] 94.8 fL 80-94 [facility] Hematocrit Auto (Bld) [Volum e fraction]Ordered By: [facility] ansonkimberlee on 08-19-2022 Hematocrit (Bld) [Volume fraction] 34.6 % 40-54 [facility] Laboratory - Hematology and Cell countsOrdered By: [place] Little on 08-19-2022 Erythrocyte distribution width (RBC) [Entitic vol] 51.9 fL 35.1-43.9 [facility] Erythrocyte distribution width (RBC) [Ratio] 15.0 % 11.6-14.6 [facility] MCH (RBC) [Entitic mass] 29.9 pg 27.0-32.0 [facility] MCHC Auto (RBC) [Mass/Vol]Or dered By: [place] Little on 08-19-2022 MCHC (RBC) [Mass/Vol] 31.5 g/dL 32-36 [facility] Platelets bldOrdered By: Tommie Fitch on 08-19-2022 Platelets (Bld) [#/Vol] 337 10*3/uL 150-450 [facility] Absolute lymphocyte countOrd ered By: Dr. Alfredo on 08-03-2022 Lymphocytes Auto (Unsp spec) [#/Vol] 1.04 10*3/uL 0.83-4.51 [facility] Assessment of wrist artery p atency prior to arterial punctureOrdered By: Dr. Grubbs on 08-03-2022 Arterial patency Wrist artery --pre arterial puncture Positive [facility] Base excessOrdered By: Dr. iHna cosme on 08-03-2022 Base excess Calc (BldV) [Moles/Vol] -2 mmol/L -2-2 [facility] Basophil percentageOrdered B y: Dr. Grubbs on 08-03-2022 Basophil percentage 22.2 mmol/L 22-26 [facility] Basophils/100 WBC (Bld) 87 % 95-99 [facility] Basophil percentageOrdered B y: Dr. Alfredo on 08-03-2022 Basophils/100 WBC (Bld) 0.3 % 0-1 [facility] Eosinophils/100 WBC (Bld) 3.5 % 0-5 [facility] Neutrophils (Bld) [#/Vol] 4.8 10*3/uL 2.0-7.7 [facility] Neutrophils/100 WBC (Bld) 69.8 % 47-70 [facility] WBC (Bld) [#/Vol] 6.8 10*3/uL 4.4-11.0 [facility] Basophil percentageOrdered B y: Lucy Fitch on 08-03-2022 Chloride [Moles/Vol] 102 mmol/L 98-107 [facility] Glucose [Mass/Vol] 55 mg/dL 74-106 [facility] Potassium [Moles/Vol] 3.6 mmol/L 3.5-5.1 [facility] Sodium [Moles/Vol] 137 mmol/L 136-145 [facility] Blood erythrocytes count (nu mber/volume)Ordered By: Dr. Alfredo on 08-03-2022 RBC (Bld) [#/Vol] 2.94 10*6/uL 4.6-6.2 [facility] Blood hemoglobin measurement (mass/volume)Ordered By: Dr. Alfredo on 08-03-2022 Hemoglobin (Bld) [Mass/Vol] 8.5 g/dL 13.0-16.5 [facility] Blood lymphocytes/100 leukoc ytesOrdered By: Dr. Alfredo on 08-03-2022 Lymphocytes/100 WBC (Bld) 15.2 % 19-41 [facility] Blood monocytes/100 leukocyt esOrdered By: Dr. Alfredo on 08-03-2022 Monocytes/100 WBC (Bld) 10.6 % 0-10 [facility] Blood platelet mean volumeOr dered By: Dr. Alfredo on 08-03-2022 Platelet mean volume (Bld) [Entitic vol] 10.3 fL 6.2-12.0 [facility] CO2 (BldA) [Partial pressure ]Ordered By: Dr. Grubbs on 08-03-2022 CO2 (Bld) [Partial pressure] 31.1 mm[Hg] 35-45 [facility] Determination of erythrocyte mean corpuscular volume (MCV)Ordered By: Dr. Alfredo on 08-03-2022 MCV (RBC) [Entitic vol] 92.9 fL 80-94 [facility] Hematocrit Auto (Bld) [Volum e fraction]Ordered By: Dr. Alfredo on 08-03-2022 Hematocrit (Bld) [Volume fraction] 27.3 % 40-54 [facility] Laboratory - Chemistry and C hemistry - challengeOrdered By: Lucy Fitch on 08-03-2022 CO2 [Moles/Vol] 25.0 mmol/L 21.0-32.0 [facility] Urea nitrogen/Creatinine [Mass ratio] 20.6 mg/mg 10-20 [facility] Laboratory - Hematology and Cell countsOrdered By: Dr. Alfredo on 08-03-2022 Erythrocyte distribution width (RBC) [Entitic vol] 47.9 fL 35.1-43.9 [facility] Erythrocyte distribution width (RBC) [Ratio] 14.2 % 11.6-14.6 [facility] Immature granulocytes/100 WBC (Bld) 0.600 % 0.0-0.9 [facility] Comment on above: IG% - Immature Granu locytes (promyelocytes, myelocytes and metamyelocytes) > 1% indicates that a LEFT SHIFT is Present. MCH (RBC) [Entitic mass] 28.9 pg 27.0-32.0 [facility] Nucleated RBC/100 WBC (Bld) [Ratio] 0 % 0-5 [facility] MCHC Auto (RBC) [Mass/Vol]Or dered By: Dr. Alfredo on 08-03-2022 MCHC (RBC) [Mass/Vol] 31.1 g/dL 32-36 [facility] No Panel InformationOrdered By: Dr. Grubbs on 08-03-2022 Blood Gas Sample Site L Radial [facility] Blood Gas Specimen Type ART [facility] Blood Gas Total CO2 23 mmol/L [facility] Oxygen Delivery Device Room Air [facility] No Panel InformationOrdered By: Lucy Fitch on 08-03-2022 Estimated Creatinine Clearance Calc 56.56 ml/min [facility] Estimated GFR (MDRD) Amer 110 mL/min >60 [facility] Comment on above: GFR Calc Estimated GFR (MDRD) Non-Af Amer 91 mL/min >60 [facility] Comment on above: Non- GFR Calc Oxygen (BldA) [Partial press ure]Ordered By: Dr. Grubbs on 08-03-2022 Oxygen (Bld) [Partial pressure] 49 mmHG 75-100 [facility] Platelets bldOrdered By: Dr. Alfredo on 08-03-2022 Platelets (Bld) [#/Vol] 163 10*3/uL 150-450 [facility] Serum or plasma calcium gracie urement (mass/volume)Ordered By: Lucy Fitch on 08-03-2022 Calcium [Mass/Vol] 8.2 mg/dL 8.5-10.1 [facility] Serum or plasma creatinine m easurement (mass/volume)Ordered By: Lucy Fitch on 08-03-2022 Creatinine [Mass/Vol] 0.87 mg/dL 0.70-1.30 [facility] Comment on above: The validity of the calculated GFR & GFRAA in patients over 70 years has not been determined. Clinical correlation is essential. Serum or plasma urea nitroge n measurement (mass/volume)Ordered By: Lucy Fitch on 08-03-2022 Urea nitrogen [Mass/Vol] 18 mg/dL 7-18 [facility] Thin prep Papanicolaou smear with manual screeningOrdered By: Lucy Fitch on 08-03-2022 Thin prep Papanicolaou smear with manual screening 10 5-15 [facility] pH measurementOrdered By: Dr Ford Grubbs on 08-03-2022 pH (Unsp spec) 7.46 [pH] 7.35-7.45 [facility] Laboratory - Microbiology an d Antimicrobial susceptibilityOrdered By: Dr. Meza on 08-02-2022 Respiratory pathogens DNA and RNA 12b panel JORDIN+probe (Unsp spec) [facility] Blood manual differential co mment interpretation (narrative result)Ordered By: Dr. Grubbs on 08-01-2022 Manual differential comment Sarmad (Bld) [Interp] SCANNED [facility] Comment on above: LYMPHOPENIA NOTED Laboratory - Chemistry and C hemistry - challengeOrdered By: Dr. Meza on 08-01-2022 Natriuretic peptide B (Bld) [Mass/Vol] 97.6 pg/mL 0-100 [facility] Glucose Glucometer (BldC) [M ass/Vol]Ordered By: Dr. Grubbs on 07-31-2022 Glucose [Mass/Vol] 99 mg/dL 74-106 [facility] Comment on above: MANAGEMENT OF PATIEN T CARE PER NURSING PROTOCOL Basophil percentageOrdered B y: Dr. Grubbs on 07-30-2022 Basophil percentage 3.6 mg/dL 2.5-4.9 [facility] Laboratory - Chemistry and C hemistry - challengeOrdered By: Dr. Grubbs on 07-30-2022 Magnesium [Mass/Vol] 1.4 mg/dL 1.6-2.6 [facility] No Panel InformationOrdered By: Dr. Grubbs on 07-29-2022 Activated Clotting Time 251 sec 74-137 [facility] No Panel InformationOrdered By: Dr. Chaidez on 07-18-2022 Parathyroid Hormone (Intact) 70.3 pg/mL 18.4-80.1 [facility] Vitamin D 25-Hydroxy 21.7 ng/mL [facility] Comment on above: Vitamin D 25(OH) Sta tus Range Deficiency <20 ng/mL (50nmol/L) Insufficiency 20 - 30 ng/mL (50 - 75 nmol/L) Sufficiency 30 - 100 ng/mL (75 - 250 nmol/L) Toxicity >100 ng/mL (>250 nmol/L) Whole blood hemoglobin A1c/t otal hemoglobin ratio (mass fraction)Ordered By: Dr. Chaidez on 07-18-2022 HbA1c (Bld) [Mass fraction] 5.7 % 3.8-5.6 [facility] Comment on above: Normal < 5.7 % Predi abetic 5.7 - 6.4 % Diabetic >or= 6.5 % Please note range changes. Absolute lymphocyte countOrd ered By: Dr. Chaidez on 06-18-2022 Lymphocytes Auto (Unsp spec) [#/Vol] 1.52 10*3/uL 0.83-4.51 [facility] Basophil percentageOrdered B y: Dr. Chaidez on 06-18-2022 Basophil percentage 0 SEEN /hpf 0-5 [facility] Basophils/100 WBC (Bld) 0.7 % 0-1 [facility] Bilirubin [Mass/Vol] 0.30 mg/dL 0.20-1.00 [facility] Comment on above: For patients on eltr ombopag therapy, use of Dimension [place] TBIL is not recommended. Chloride [Moles/Vol] 102 mmol/L 98-107 [facility] Cholesterol [Mass/Vol] 180 mg/dL <200 [facility] Comment on above: <200 mg/dL Desirable 200-240 mg/dL Borderline >240 mg/dL High Risk Eosinophils/100 WBC (Bld) 2.6 % 0-5 [facility] Glucose [Mass/Vol] 97 mg/dL 74-106 [facility] Neutrophils (Bld) [#/Vol] 7.1 10*3/uL 2.0-7.7 [facility] Neutrophils/100 WBC (Bld) 72.3 % 47-70 [facility] Potassium [Moles/Vol] 3.9 mmol/L 3.5-5.1 [facility] Protein [Mass/Vol] 7.9 g/dL 6.4-8.2 [facility] Sodium [Moles/Vol] 138 mmol/L 136-145 [facility] Triglyceride [Mass/Vol] 70 mg/dL <199 [facility] Comment on above: The drugs N-Acetylcy steine and Metamizole may falsely depress this assay.Serum Triglycerides Reference Interval Normal <150 mg/dL Borderline high 150 - 199 mg/dL High 200 - 499 mg/dL Very High > or = 500 mg/dL WBC (Bld) [#/Vol] 9.8 10*3/uL 4.4-11.0 [facility] Bilirubin Test strip Ql (U)O rdered By: Dr. Chaidez on 06-18-2022 Bilirubin Ql (U) Negative Negative [facility] Blood erythrocytes count (nu mber/volume)Ordered By: Dr. Chaidez on 06-18-2022 RBC (Bld) [#/Vol] 4.57 10*6/uL 4.6-6.2 [facility] Blood hemoglobin measurement (mass/volume)Ordered By: Dr. Chaidez on 06-18-2022 Hemoglobin (Bld) [Mass/Vol] 13.5 g/dL 13.0-16.5 [facility] Blood lymphocytes/100 leukoc ytesOrdered By: Dr. Chaidez on 06-18-2022 Lymphocytes/100 WBC (Bld) 15.6 % 19-41 [facility] Blood monocytes/100 leukocyt esOrdered By: Dr. Chaidez on 06-18-2022 Monocytes/100 WBC (Bld) 8.5 % 0-10 [facility] Blood platelet mean volumeOr dered By: Dr. Chaidez on 06-18-2022 Platelet mean volume (Bld) [Entitic vol] 11.0 fL 6.2-12.0 [facility] Determination of erythrocyte mean corpuscular volume (MCV)Ordered By: Dr. Chaidez on 06-18-2022 MCV (RBC) [Entitic vol] 94.1 fL 80-94 [facility] Hematocrit Auto (Bld) [Volum e fraction]Ordered By: Dr. Chaidez on 06-18-2022 Hematocrit (Bld) [Volume fraction] 43.0 % 40-54 [facility] Ketones Test strip Ql (U)Ord ered By: Dr. Chaidez on 06-18-2022 Ketones Ql (U) Negative Negative [facility] Laboratory - Chemistry and C hemistry - challengeOrdered By: Dr. Chaidez on 06-18-2022 ALP [Catalytic activity/Vol] 92 U/L 45-117 [facility] ALT [Catalytic activity/Vol] 16 U/L 16-61 [facility] CO2 [Moles/Vol] 27.0 mmol/L 21.0-32.0 [facility] Globulin (S) [Mass/Vol] 4.4 g/dL 2.2-4.2 [facility] Urea nitrogen/Creatinine [Mass ratio] 17.9 mg/mg 10-20 [facility] Laboratory - Hematology and Cell countsOrdered By: Dr. Chaidez on 06-18-2022 Erythrocyte distribution width (RBC) [Entitic vol] 46.2 fL 35.1-43.9 [facility] Erythrocyte distribution width (RBC) [Ratio] 13.4 % 11.6-14.6 [facility] Immature granulocytes/100 WBC (Bld) 0.300 % 0.0-0.9 [facility] Comment on above: IG% - Immature Granu locytes (promyelocytes, myelocytes and metamyelocytes) > 1% indicates that a LEFT SHIFT is Present. MCH (RBC) [Entitic mass] 29.5 pg 27.0-32.0 [facility] Nucleated RBC/100 WBC (Bld) [Ratio] 0 % 0-5 [facility] MCHC Auto (RBC) [Mass/Vol]Or dered By: Dr. Chaidez on 06-18-2022 MCHC (RBC) [Mass/Vol] 31.4 g/dL 32-36 [facility] Mucus LM Ql (Urine sed)Order ed By: Dr. Chaidez on 06-18-2022 Mucus Ql (Urine sed) 0 SEEN /hpf [facility] Nitrite Test strip Ql (U)Ord ered By: Dr. Chaidez on 06-18-2022 Nitrite Ql (U) Negative Negative [facility] No Panel InformationOrdered By: Dr. Chaidez on 06-18-2022 Estimated GFR (MDRD) Amer 83 mL/min >60 [facility] Comment on above: GFR Calc Estimated GFR (MDRD) Non-Af Amer 68 mL/min >60 [facility] Comment on above: Non- GFR Calc Thyroid Stimulating Hormone (TSH) 1.70 uIU/mL 0.358-3.74 [facility] Platelets bldOrdered By: Dr. Chaidez on 06-18-2022 Platelets (Bld) [#/Vol] 284 10*3/uL 150-450 [facility] Protein Test strip Ql (U)Ord ered By: Dr. Chaidez on 06-18-2022 Protein Ql (U) 15 mg/dl Negative [facility] Serum or plasma albumin gracie urement (mass/volume)Ordered By: Dr. Chaidez on 06-18-2022 Albumin [Mass/Vol] 3.5 g/dL 3.2-5.0 [facility] Serum or plasma albumin/glob ulin mass ratioOrdered By: Dr. Chaidez on 06-18-2022 Albumin/Globulin [Mass ratio] 0.8 {ratio} 0.9-2.4 [facility] Serum or plasma calcium gracie urement (mass/volume)Ordered By: Dr. Chaidez on 06-18-2022 Calcium [Mass/Vol] 9.3 mg/dL 8.5-10.1 [facility] Serum or plasma cholesterol in HDL measurement (mass/volume)Ordered By: Dr. Chaidez on 06-18-2022 Cholesterol in HDL [Mass/Vol] 93 mg/dL >40 [facility] Comment on above: The drugs N-Acetylcy steine and Metamizole may falsely depress this assay. Reference Range HDL <40 mg/dL Low HDL Cholesterol HDL >or= 60 mg/dL High HDL Cholesterol Serum or plasma cholesterol in VLDL measurement (mass/volume)Ordered By: Dr. Chaidez on 06-18-2022 Cholesterol in VLDL [Mass/Vol] 14 mg/dL 5-40 [facility] Serum or plasma creatinine m easurement (mass/volume)Ordered By: Dr. Chaidez on 06-18-2022 Creatinine [Mass/Vol] 1.12 mg/dL 0.70-1.30 [facility] Comment on above: The validity of the calculated GFR & GFRAA in patients over 70 years has not been determined. Clinical correlation is essential. Serum or plasma low density lipoprotein (LDL) cholesterol measurement (mass/volume)Ordered By: Dr. Chaidez on 06-18-2022 Cholesterol in LDL [Mass/Vol] 73 mg/dL 0-130 [facility] Serum or plasma urea nitroge n measurement (mass/volume)Ordered By: Dr. Chaidez on 06-18-2022 Urea nitrogen [Mass/Vol] 20 mg/dL 7-18 [facility] Squamous epithelial cells de tection in urine sediment by light microscopyOrdered By: Dr. Chaidez on 06-18-2022 Epithelial cells.squamous LM Ql (Urine sed) 0 SEEN /hpf 0-5 [facility] Thin prep Papanicolaou smear with manual screeningOrdered By: Dr. Chaidez on 06-18-2022 Thin prep Papanicolaou smear with manual screening 13 U/L 15-37 [facility] Thin prep Papanicolaou smear with manual screening 9 5-15 [facility] Urine blood detectionOrdered By: Dr. Chaidez on 06-18-2022 RBC Ql (U) 10 /ul Negative [facility] RBC Ql (U) 0 SEEN /hpf 0-5 [facility] Urine clarityOrdered By: Dr. Chaidez on 06-18-2022 Clarity (U) Clear Clear [facility] Urine color determinationOrd ered By: Dr. Chaidez on 06-18-2022 Color (U) Yellow Yellow [facility] Urine glucose detectionOrder ed By: Dr. Chaidez on 06-18-2022 Glucose Ql (U) Normal mg/dl Normal [facility] Urine leukocyte esterase det ection by dipstickOrdered By: Dr. Chaidez on 06-18-2022 Leukocyte esterase Test strip Ql (U) Negative Negative [facility] Urine pHOrdered By: Dr. Shorty pal on 06-18-2022 pH (U) 5.0 [pH] 5.0 - 8.0 [facility] Urine sediment bacteria coun t by microscopy (number/high power field)Ordered By: Dr. Chaidez on 06-18-2022 Bacteria LM.HPF (Urine sed) [#/Area] 0 /[HPF] None Seen [facility] Urine specific gravity measu rementOrdered By: Dr. Chaidez on 06-18-2022 Specific gravity (U) [Rel density] 1.015 1.002-1.03 0 [facility] Urobilinogen Auto test strip Ql (U)Ordered By: Dr. Chaidez on 06-18-2022 Urobilinogen Ql (U) Normal mg/dl Normal [facility] Basophil percentageOrdered B y: Lucy Fitch on 05-02-2022 Chloride [Moles/Vol] 106 mmol/L 98-107 [facility] Glucose [Mass/Vol] 76 mg/dL 74-106 [facility] Potassium [Moles/Vol] 4.1 mmol/L 3.5-5.1 [facility] Sodium [Moles/Vol] 140 mmol/L 136-145 [facility] Laboratory - Chemistry and C hemistry - challengeOrdered By: Lucy Fitch on 05-02-2022 CO2 [Moles/Vol] 32.0 mmol/L 21.0-32.0 [facility] Urea nitrogen/Creatinine [Mass ratio] 21.7 mg/mg 10-20 [facility] No Panel InformationOrdered By: Lucy Fitch on 05-02-2022 Estimated GFR (MDRD) Amer 80 mL/min >60 [facility] Comment on above: GFR Calc Estimated GFR (MDRD) Non-Af Amer 66 mL/min >60 [facility] Comment on above: Non- GFR Calc Serum or plasma calcium gracie urement (mass/volume)Ordered By: Lucy Fitch on 05-02-2022 Calcium [Mass/Vol] 9.3 mg/dL 8.5-10.1 [facility] Serum or plasma creatinine m easurement (mass/volume)Ordered By: Lucy Fitch on 05-02-2022 Creatinine [Mass/Vol] 1.15 mg/dL 0.70-1.30 [facility] Comment on above: The validity of the calculated GFR & GFRAA in patients over 70 years has not been determined. Clinical correlation is essential. Serum or plasma urea nitroge n measurement (mass/volume)Ordered By: Lucy Fitch on 05-02-2022 Urea nitrogen [Mass/Vol] 25 mg/dL - [facility] Thin prep Papanicolaou smear with manual screeningOrdered By: Lucy Fitch on 05-02-2022 Thin prep Papanicolaou smear with manual screening 2 - [facility] US AAA SCREENINGon 2 US AAA SCREENING ORIGINAL EXAMINATION: SCREENING ULTRASOUND OF THE AORTA [...] 04/19/2022 4:36:10 PM Ordering Provider: NIMA MANCIA [facility] ([place]) [facility] NA[facility]UM[facility] Tele[facility] ([employer]) RYAN VAZ ([id number]) 1950 M Date Time Provider Department 04/05/22 ALECIA TERRY During your visit today, we recorded the following information about you: Sean Cote 04/05/2022 9:33 AM Signed Pt. has been referred to Vascular Surgery from Dr. Matute. Diagnosis: is disorder of arteries and arterioles, unspecified. Reason: Peripheral arterial occlusive disease. Please schedule with next available surgeon. Records have been scanned into [employer]. Pt. Requesting imaging. Best contact for scheduling is Pramod: [phone] Thanks, Sean Cote [facility] ' Maryan Ferrer 04/09/2022 10:21 AM Signed Spoke with patient (Pramod) and she stated that she will call us back when her is present. Allergies As of Date: 04/05/2022 Noted Allergy Reaction CIPRO (CIPROFLOXACIN) 06/11/2007 8 - GI Upset Date Reviewed: 02/19/2016 Reviewed by: Kathleen Silva RN - Fully Assessed Reason for Visit: Appointment [186] Prescriptions as of 04/09/2022 - valsartan (DIOVAN) 320 mg tablet Take 320 mg by mouth once daily. - diltiazem CD (CARDIZEM CD, CARTIA XT) 180 mg 24 hr capsule - aspirin, enteric coated (ASPIRIN, ENTERIC COATED) 81 mg EC tablet Take 81 mg by mouth once daily. - Valsartan-Hydrochlorothiazi de 320-12.5 mg per tablet Take 1 tablet by mouth once daily. Problem List As Of Date 04/05/2022 Noted Resolved PVD (peripheral vascular disease) ([facility]) [I73.9] 03/01/2014 Carotid bruit [R09.89] 03/01/2014 Tobacco use disorder [F17.200] 03/01/2014 Hypertension [I10] 03/01/2014 GERD (gastroesophageal reflux disease) [K21.9] 03/01/2014 Encounter Status:Closed by SEAN COTE on 04/05/22 Normal [facility] .GFRon 03-21-2022 GFR Non- 45 ml/min/1.73sqm Normal [facility] ([place]) Comment on above: Result Comment: GFR Population mean for , Non- Americans Ages 20-29 = 116 mL/min/1.73 sq.m. Ages 30-39 = 107 mL/min/1.73 sq.m. Ages 40-49 = 99 mL/min/1.73 sq.m. Ages 50-59 = 93 mL/min/1.73 sq.m. Ages 60-69 = 85 mL/min/1.73 sq.m. Ages 70+ = 75 mL/min/1.73 sq.m. Chronic Kidney Disease: Less than 60 mL/min/1.73 square meters End Stage Renal Disease: Less than 15 mL/min/1.73 square meters Performed By: #### M G, PSA, VIDH, GFR, BMP #### [place] [address] [address] GFR 55 ml/min/1.73sqm Normal [facility] ([place]) Comment on above: Result Comment: GFR Population mean for , Non- Americans Ages 20-29 = 116 mL/min/1.73 sq.m. Ages 30-39 = 107 mL/min/1.73 sq.m. Ages 40-49 = 99 mL/min/1.73 sq.m. Ages 50-59 = 93 mL/min/1.73 sq.m. Ages 60-69 = 85 mL/min/1.73 sq.m. Ages 70+ = 75 mL/min/1.73 sq.m. Chronic Kidney Disease: Less than 60 mL/min/1.73 square meters End Stage Renal Disease: Less than 15 mL/min/1.73 square meters Performed By: #### M G, PSA, VIDH, GFR, BMP #### [address] [address] BMPon 03-21-2022 BUN/Creatinine Ratio 24 ratio Normal 7-27 [facility] ([place]) Comment on above: Performed By: #### M G, PSA, VIDH, GFR, BMP #### [address] [address] Calcium [Mass/Vol] 9.3 mg/dL Normal 8.4-10.2 [facility] ([place]) Comment on above: Performed By: #### M G, PSA, VIDH, GFR, BMP #### [address] [address] Chloride [Moles/Vol] 102 mmol/L Normal 98-107 [facility] ([place]) Comment on above: Performed By: #### M G, PSA, VIDH, GFR, BMP #### [address] [address] CO2 [Moles/Vol] 30 mmol/L Normal 23-31 [facility] ([place]) Comment on above: Performed By: #### M G, PSA, VIDH, GFR, BMP #### [address] [address] Creatinine [Mass/Vol] 1.52 mg/dL High 0.70-1.30 [facility] ([place]) Comment on above: Performed By: #### M G, PSA, VIDH, GFR, BMP #### [address] [address] Electrolyte Balance 7.0 mEq/L Normal 4.0-15.0 [facility] ([place]) Comment on above: Performed By: #### M G, PSA, VIDH, GFR, BMP #### [address] [address] Glucose [Mass/Vol] 101 mg/dL Normal 83-110 [facility] ([place]) Comment on above: Performed By: #### M G, PSA, VIDH, GFR, BMP #### [address] [address] Potassium [Moles/Vol] 4.4 mmol/L Normal 3.5-5.1 [facility] ([place]) Comment on above: Performed By: #### M G, PSA, VIDH, GFR, BMP #### [address] [address] Sodium [Moles/Vol] 139 mmol/L Normal 136-145 [facility] ([place]) Comment on above: Performed By: #### Paz G, PSA, VIDH, GFR, BMP #### [address] [address] Urea nitrogen [Mass/Vol] 36 mg/dL High 7-18 [facility] ([place]) Comment on above: Performed By: #### M G, PSA, VIDH, GFR, BMP #### [address] [address] LABORATORYOrdered By: Vianey Silva on 03-21-2022 Calcium [Mass/Vol] 9.3 mg/dL Invalid Interpretation Code 8.4 - 10.2 mg/dL AO ADM SS Chloride [Moles/Vol] 102 mmol/L Invalid Interpretation Code 98 - 107 mmol/L AO ADM SS CO2 [Moles/Vol] 30 mmol/L Invalid Interpretation Code 23 - 31 mmol/L AO ADM SS Creatinine [Mass/Vol] 1.52 mg/dL Invalid Interpretation Code 0.70 - 1.30 mg/dL AO ADM SS Electrolyte Balance 7.0 mEq/L Invalid Interpretation Code 4.0 - 15.0 mEq/L AO ADM SS Glucose [Mass/Vol] 101 mg/dL Invalid Interpretation Code 83 - 110 mg/dL AO ADM SS Magnesium [Mass/Vol] 1.9 mg/dL Invalid Interpretation Code 1.8 - 2.4 mg/dL AO ADM SS Potassium [Moles/Vol] 4.4 mmol/L Invalid Interpretation Code 3.5 - 5.1 mmol/L AO ADM SS Prostate specific Ag [Mass/Vol] 0.82 ng/mL Invalid Interpretation Code 0.00 - 4.00 ng/mL AO ADM SS Sodium [Moles/Vol] 139 mmol/L Invalid Interpretation Code 136 - 145 mmol/L AO ADM SS Urea nitrogen [Mass/Vol] 36 mg/dL Invalid Interpretation Code 7 - 18 mg/dL AO ADM SS Urea nitrogen/Creatinine [Mass ratio] 24 ratio Invalid Interpretation Code 7 - 27 ratio AO ADM SS Vit. D 25-Hydroxy 38.8 ng/mL Invalid Interpretation Code AO ADM SS LABORATORYOrdered By: SYSTEM SYSTEM on 03-21-2022 GFR 55 ml/min/1.73sqm Invalid Interpretation Code AO Chemistry S GFR Non- 45 ml/min/1.73sqm Invalid Interpretation Code AO Chemistry S MGon 03-21-2022 Magnesium [Mass/Vol] 1.9 mg/dL Normal 1.8-2.4 [facility] ([place]) Comment on above: Performed By: #### M G, PSA, VIDH, GFR, BMP #### [address] [address] PSAon 03-21-2022 Prostate Specific Antigen 0.82 ng/mL Normal 0.00-4.00 [facility] ([place]) Comment on above: Performed By: #### M G, PSA, VIDH, GFR, BMP #### [place] [address] [address] VIDHon 03-21-2022 Vit. D 25-Hydroxy 38.8 ng/mL Normal [facility] ([place]) Comment on above: Result Comment: Inte rpretive Values Based on Total 25(OH) Vitamin D: Deficient <20 ng/mL Insufficient 20 - <30 ng/mL Sufficient 30-100 ng/mL Performed By: #### M G, PSA, VIDH, GFR, BMP #### [address] [address] .Auto Diffon 09-18-2021 Basophil, Absolute 0.10 10 3/mcL Normal 0.00-0.19 [facility] ([place]) Comment on above: Performed By: #### C BC, VIDH, ADIFF, ANEU, GFR, TSH, LIPID, CMP #### [address] [address] Basophils/100 WBC (Bld) 0.6 % Normal 0.0-2.5 [facility] ([place]) Comment on above: Performed By: #### C BC, VIDH, ADIFF, ANEU, GFR, TSH, LIPID, CMP #### [address] [address] Eosinophil, Absolute 0.30 10 3/mcL Normal 0.00-0.40 [facility] ([place]) Comment on above: Performed By: #### C BC, VIDH, ADIFF, ANEU, GFR, TSH, LIPID, CMP #### [address] [address] Eosinophils/100 WBC (Bld) 2.3 % Normal 0.0-7.0 [facility] ([place]) Comment on above: Performed By: #### C BC, VIDH, ADIFF, ANEU, GFR, TSH, LIPID, CMP #### [address] [address] Lymphocyte, Absolute 2.30 10 3/mcL Normal 0.77-3.85 [facility] ([place]) Comment on above: Performed By: #### C BC, VIDH, ADIFF, ANEU, GFR, TSH, LIPID, CMP #### [address] [address] Lymphocytes/100 WBC (Bld) 18.7 % Normal 10.0-50.0 [facility] ([place]) Comment on above: Performed By: #### C BC, VIDH, ADIFF, ANEU, GFR, TSH, LIPID, CMP #### [address] [address] Monocyte, Absolute 0.90 10 3/mcL Normal 0.15-1.00 [facility] ([place]) Comment on above: Performed By: #### C BC, VIDH, ADIFF, ANEU, GFR, TSH, LIPID, CMP #### [address] [address] Monocytes/100 WBC (Bld) 7.3 % Normal 1.7-13.0 [facility] ([place]) Comment on above: Performed By: #### C BC, VIDH, ADIFF, ANEU, GFR, TSH, LIPID, CMP #### [address] [address] Neutrophils/100 WBC (Bld) 71.1 % Normal 37.0-80.0 [facility] ([place]) Comment on above: Performed By: #### C BC, VIDH, ADIFF, ANEU, GFR, TSH, LIPID, CMP #### [address] [address] .GFRon 09-18-2021 GFR Non- 52 ml/min/1.73sqm Normal [facility] ([place]) Comment on above: Result Comment: GFR Population mean for , Non- Americans Ages 20-29 = 116 mL/min/1.73 sq.m. Ages 30-39 = 107 mL/min/1.73 sq.m. Ages 40-49 = 99 mL/min/1.73 sq.m. Ages 50-59 = 93 mL/min/1.73 sq.m. Ages 60-69 = 85 mL/min/1.73 sq.m. Ages 70+ = 75 mL/min/1.73 sq.m. Chronic Kidney Disease: Less than 60 mL/min/1.73 square meters End Stage Renal Disease: Less than 15 mL/min/1.73 square meters Performed By: #### M G, PSA, VIDH, GFR, BMP #### [address] [address] GFR 63 ml/min/1.73sqm Normal [facility] ([place]) Comment on above: Result Comment: GFR Population mean for , Non- Americans Ages 20-29 = 116 mL/min/1.73 sq.m. Ages 30-39 = 107 mL/min/1.73 sq.m. Ages 40-49 = 99 mL/min/1.73 sq.m. Ages 50-59 = 93 mL/min/1.73 sq.m. Ages 60-69 = 85 mL/min/1.73 sq.m. Ages 70+ = 75 mL/min/1.73 sq.m. Chronic Kidney Disease: Less than 60 mL/min/1.73 square meters End Stage Renal Disease: Less than 15 mL/min/1.73 square meters Performed By: #### M G, PSA, VIDH, GFR, BMP #### [address] [address] .NEUABSon 09-18-2021 Neutrophil, Absolute 8.60 10 3/mcL High 2.85-6.16 A [facility] ([place]) Comment on above: Performed By: #### C BC, VIDH, ADIFF, ANEU, GFR, TSH, LIPID, CMP #### [place] [id number] CBCon 09-18-2021 Erythrocyte distribution width (RBC) [Ratio] 14.1 % Normal 11.5-14.5 [facility] ([place]) Comment on above: Performed By: #### C BC, VIDH, ADIFF, ANEU, GFR, TSH, LIPID, CMP #### [address] [address] Hematocrit (Bld) [Volume fraction] 43.6 % Normal 42.0-52.0 [facility] ([place]) Comment on above: Performed By: #### C BC, VIDH, ADIFF, ANEU, GFR, TSH, LIPID, CMP #### [address] [address] Hgb 14.5 G/dL Normal 14.0-18.0 [facility] ([place]) Comment on above: Performed By: #### C BC, VIDH, ADIFF, ANEU, GFR, TSH, LIPID, CMP #### [address] [address] MCH (RBC) [Entitic mass] 29.7 pg Normal 27.0-31.2 [facility] ([place]) Comment on above: Performed By: #### C BC, VIDH, ADIFF, ANEU, GFR, TSH, LIPID, CMP #### [address] [address] MCHC 33.1 G/dL Normal 31.8-35.4 [facility] ([place]) Comment on above: Performed By: #### C BC, VIDH, ADIFF, ANEU, GFR, TSH, LIPID, CMP #### [place] [address] MCV (RBC) [Entitic vol] 89.6 fL Normal 80.0-94.0 [facility] ([place]) Comment on above: Performed By: #### C BC, VIDH, ADIFF, ANEU, GFR, TSH, LIPID, CMP #### [address] [address] Platelet 277 10 3/mcL Normal 130-400 [facility] ([place]) Comment on above: Performed By: #### C BC, VIDH, ADIFF, ANEU, GFR, TSH, LIPID, CMP #### [place] [address] Platelet mean volume (Bld) [Entitic vol] 8.6 fL Normal 7.4-10.4 [facility] ([place]) Comment on above: Performed By: #### C BC, VIDH, ADIFF, ANEU, GFR, TSH, LIPID, CMP #### [place] [address] RBC 4.87 10 6/mcL Normal 4.04-6.13 [facility] ([place]) Comment on above: Performed By: #### C BC, VIDH, ADIFF, ANEU, GFR, TSH, LIPID, CMP #### [place] [address] WBC 12.10 10 3/mcL High 4.60-10.80 [facility] ([place]) Comment on above: Performed By: #### C BC, VIDH, ADIFF, ANEU, GFR, TSH, LIPID, CMP #### [place] [address] CMPon 09-18-2021 Albumin Level 3.8 G/dL Normal 3.4-4.8 [facility] ([place]) Comment on above: Performed By: #### M G, PSA, VIDH, GFR, BMP #### [address] [address] Albumin/Globulin [Mass ratio] 0.9 {ratio} Low 1.1-2.5 [facility] ([place]) Comment on above: Performed By: #### M G, PSA, VIDH, GFR, BMP #### [address] [address] ALP [Catalytic activity/Vol] 102 U/L Normal 40-135 [facility] ([place]) Comment on above: Performed By: #### M G, PSA, VIDH, GFR, BMP #### [address] [address] ALT [Catalytic activity/Vol] 16 U/L Normal 16-63 [facility] ([place]) Comment on above: Performed By: #### M G, PSA, VIDH, GFR, BMP #### [address] [address] AST [Catalytic activity/Vol] 11 U/L Normal 10-40 [facility] ([place]) Comment on above: Performed By: #### M G, PSA, VIDH, GFR, BMP #### [address] [address] Bili Total 0.3 mg/dL Normal 0.2-1.0 [facility] ([place]) Comment on above: Result Comment: Use of this assay is not recommended for patients undergoing treatment with eltrombopag due to the potential for falsely elevated results. Performed By: #### M G, PSA, VIDH, GFR, BMP #### [address] [address] BUN/Creatinine Ratio 23 ratio Normal 7-27 [facility] ([place]) Comment on above: Performed By: #### M G, PSA, VIDH, GFR, BMP #### [address] [address] Calcium [Mass/Vol] 9.4 mg/dL Normal 8.4-10.2 [facility] ([place]) Comment on above: Performed By: #### M G, PSA, VIDH, GFR, BMP #### [address] [address] Chloride [Moles/Vol] 100 mmol/L Normal 98-107 [facility] ([place]) Comment on above: Performed By: #### M G, PSA, VIDH, GFR, BMP #### [address] [address] CO2 [Moles/Vol] 28 mmol/L Normal 23-31 [facility] ([place]) Comment on above: Performed By: #### M G, PSA, VIDH, GFR, BMP #### [address] [address] Creatinine [Mass/Vol] 1.35 mg/dL High 0.70-1.30 [facility] ([place]) Comment on above: Performed By: #### M G, PSA, VIDH, GFR, BMP #### [address] [address] Electrolyte Balance 11.0 mEq/L Normal 4.0-15.0 [facility] ([place]) Comment on above: Performed By: #### M G, PSA, VIDH, GFR, BMP #### [address] [address] Globulin 4.1 G/dL Normal [facility] ([place]) Comment on above: Performed By: #### M G, PSA, VIDH, GFR, BMP #### [address] [address] Glucose [Mass/Vol] 128 mg/dL High 83-110 [facility] ([place]) Comment on above: Performed By: #### M G, PSA, VIDH, GFR, BMP #### [address] [address] Potassium [Moles/Vol] 4.0 mmol/L Normal 3.5-5.1 [facility] ([place]) Comment on above: Performed By: #### M G, PSA, VIDH, GFR, BMP #### [address] [address] Sodium [Moles/Vol] 139 mmol/L Normal 136-145 [facility] ([place]) Comment on above: Performed By: #### M G, PSA, VIDH, GFR, BMP #### [address] [address] Total Protein 7.9 G/dL Normal 6.4-8.2 [facility] ([place]) Comment on above: Performed By: #### M G, PSA, VIDH, GFR, BMP #### [address] [address] Urea nitrogen [Mass/Vol] 31 mg/dL High 7-18 [facility] ([place]) Comment on above: Performed By: #### M G, PSA, VIDH, GFR, BMP #### [address] [address] LABORATORYOrdered By: Davina Michelle on 09-18-2021 Albumin BCP dye [Mass/Vol] 3.8 G/dL Invalid Interpretation Code 3.4 - 4.8 G/dL AO ADM SS Albumin/Globulin [Mass ratio] 0.9 {ratio} Invalid Interpretation Code 1.1 - 2.5 ratio AO ADM SS ALP [Catalytic activity/Vol] 102 U/L Invalid Interpretation Code 40 - 135 U/L AO ADM SS ALT With P-5'-P [Catalytic activity/Vol] 16 U/L Invalid Interpretation Code 16 - 63 U/L AO ADM SS AST With P-5'-P [Catalytic activity/Vol] 11 U/L Invalid Interpretation Code 10 - 40 U/L AO ADM SS Basophil, Absolute 0.10 103/mcL Invalid Interpretation Code 0.00 - 0.19 10^3/mcL AO Auto Heme SS Basophils/100 WBC (Bld) 0.6 % Invalid Interpretation Code 0.0 - 2.5 % AO Auto Heme SS Bilirubin [Mass/Vol] 0.3 mg/dL Invalid Interpretation Code 0.2 - 1.0 mg/dL AO ADM SS Calcium [Mass/Vol] 9.4 mg/dL Invalid Interpretation Code 8.4 - 10.2 mg/dL AO ADM SS Chloride [Moles/Vol] 100 mmol/L Invalid Interpretation Code 98 - 107 mmol/L AO ADM SS Cholesterol [Mass/Vol] 196 mg/dL Invalid Interpretation Code 0 - 200 mg/dL AO ADM SS Cholesterol in HDL [Mass/Vol] 73 mg/dL Invalid Interpretation Code 40 - 60 mg/dL AO ADM SS Cholesterol in LDL [Mass/Vol] 105 mg/dL Invalid Interpretation Code 0 - 130 mg/dL AO ADM SS CO2 [Moles/Vol] 28 mmol/L Invalid Interpretation Code 23 - 31 mmol/L AO ADM SS Creatinine [Mass/Vol] 1.35 mg/dL Invalid Interpretation Code 0.70 - 1.30 mg/dL AO ADM SS Electrolyte Balance 11.0 mEq/L Invalid Interpretation Code 4.0 - 15.0 mEq/L AO ADM SS Eosinophil, Absolute 0.30 103/mcL Invalid Interpretation Code 0.00 - 0.40 10^3/mcL AO Auto Heme SS Eosinophils/100 WBC (Bld) 2.3 % Invalid Interpretation Code 0.0 - 7.0 % AO Auto Heme SS Erythrocyte distribution width (RBC) [Ratio] 14.1 % Invalid Interpretation Code 11.5 - 14.5 % AO Auto Heme SS Globulin 4.1 G/dL Invalid Interpretation Code AO ADM SS Glucose [Mass/Vol] 128 mg/dL Invalid Interpretation Code 83 - 110 mg/dL AO ADM SS Hematocrit (Bld) [Volume fraction] 43.6 % Invalid Interpretation Code 42.0 - 52.0 % AO Auto Heme SS Hemoglobin (Bld) [Mass/Vol] 14.5 G/dL Invalid Interpretation Code 14.0 - 18.0 G/dL AO Auto Heme SS Lymphocyte, Absolute 2.30 103/mcL Invalid Interpretation Code 0.77 - 3.85 10^3/mcL AO Auto Heme SS Lymphocytes/100 WBC (Bld) 18.7 % Invalid Interpretation Code 10.0 - 50.0 % AO Auto Heme SS MCH (RBC) [Entitic mass] 29.7 pg Invalid Interpretation Code 27.0 - 31.2 pg AO Auto Heme SS MCHC (RBC) [Mass/Vol] 33.1 G/dL Invalid Interpretation Code 31.8 - 35.4 G/dL AO Auto Heme SS MCV (RBC) [Entitic vol] 89.6 fL Invalid Interpretation Code 80.0 - 94.0 fL AO Auto Heme SS Monocyte, Absolute 0.90 103/mcL Invalid Interpretation Code 0.15 - 1.00 10^3/mcL AO Auto Heme SS Monocytes/100 WBC (Bld) 7.3 % Invalid Interpretation Code 1.7 - 13.0 % AO Auto Heme SS Neutrophil, Absolute 8.60 103/mcL Invalid Interpretation Code 2.85 - 6.16 10^3/mcL AO Auto Heme SS Neutrophils/100 WBC (Bld) 71.1 % Invalid Interpretation Code 37.0 - 80.0 % AO Auto Heme SS Platelet mean volume (Bld) [Entitic vol] 8.6 fL Invalid Interpretation Code 7.4 - 10.4 fL AO Auto Heme SS Platelets (Bld) [#/Vol] 277 103/mcL Invalid Interpretation Code 130 - 400 10^3/mcL AO Auto Heme SS Potassium [Moles/Vol] 4.0 mmol/L Invalid Interpretation Code 3.5 - 5.1 mmol/L AO ADM SS Protein [Mass/Vol] 7.9 G/dL Invalid Interpretation Code 6.4 - 8.2 G/dL AO ADM SS RBC (Bld) [#/Vol] 4.87 106/mcL Invalid Interpretation Code 4.04 - 6.13 10^6/mcL AO Auto Heme SS Sodium [Moles/Vol] 139 mmol/L Invalid Interpretation Code 136 - 145 mmol/L AO ADM SS Triglyceride [Mass/Vol] 88 mg/dL Invalid Interpretation Code 0 - 150 mg/dL AO ADM SS TSH Qn 2.26 m[IU]/L Invalid Interpretation Code 0.36 - 3.74 mcIU/mL AO ADM SS Urea nitrogen [Mass/Vol] 31 mg/dL Invalid Interpretation Code 7 - 18 mg/dL AO ADM SS Urea nitrogen/Creatinine [Mass ratio] 23 ratio Invalid Interpretation Code 7 - 27 ratio AO ADM SS Vit. D 25-Hydroxy 14.6 ng/mL Invalid Interpretation Code AO ADM SS WBC (Bld) [#/Vol] 12.10 103/mcL Invalid Interpretation Code 4.60 - 10.80 10^3/mcL AO Auto Heme SS LABORATORYOrdered By: SYSTEM SYSTEM on 09-18-2021 GFR 63 ml/min/1.73sqm Invalid Interpretation Code AO Chemistry S GFR Non- 52 ml/min/1.73sqm Invalid Interpretation Code AO Chemistry S LIPIDon 09-18-2021 Cholesterol [Mass/Vol] 196 mg/dL Normal 0-200 [facility] ([place]) Comment on above: Result Comment: Chol esterol Reference Interval: Less than 200 Desirable 200-239 Borderline high risk 240 and above High risk Performed By: #### C BC, VIDH, ADIFF, ANEU, GFR, TSH, LIPID, CMP #### [address] [address] Cholesterol in HDL [Mass/Vol] 73 mg/dL High 40-60 [facility] ([place]) Comment on above: Performed By: #### C BC, VIDH, ADIFF, ANEU, GFR, TSH, LIPID, CMP #### [address] [address] Cholesterol in LDL [Mass/Vol] 105 mg/dL Normal 0-130 [facility] ([place]) Comment on above: Performed By: #### C BC, VIDH, ADIFF, ANEU, GFR, TSH, LIPID, CMP #### [address] [address] Triglyceride [Mass/Vol] 88 mg/dL Normal 0-150 [facility] ([place]) Comment on above: Result Comment: Trig lyceride Reference Interval: Less than 150 Normal 150-199 Borderline high risk 200-499 High risk 500 or higher Very high risk Performed By: #### C BC, VIDH, ADIFF, ANEU, GFR, TSH, LIPID, CMP #### [address] [address] TSHon 09-18-2021 TSH Qn 2.26 m[IU]/L Normal 0.36-3.74 [facility] ([place]) Comment on above: Performed By: #### C BC, VIDH, ADIFF, ANEU, GFR, TSH, LIPID, CMP #### [address] [address] VIDHon 09-18-2021 Vit. D 25-Hydroxy 14.6 ng/mL Normal [facility] ([place]) Comment on above: Result Comment: Inte rpretive Values Based on Total 25(OH) Vitamin D: Deficient <20 ng/mL Insufficient 20 - <30 ng/mL Sufficient 30-100 ng/mL Performed By: #### M G, PSA, VIDH, GFR, BMP #### [place] [address] [address] Vital Signs Date Time Vital Sign Value Performing Clinician Facility 07-24-2023 19:54-0500 Body height 160.02 cm [facility] 07-24-2023 19:54-0500 Body temperature 97.9 [degF] [facility] 07-24-2023 19:54-0500 Diastolic blood pressure 72 mm[Hg] [facility] 07-24-2023 19:54-0500 Heart rate 92 /min [facility] 07-24-2023 19:54-0500 Respiratory rate 18 /min [facility] 07-24-2023 19:54-0500 SaO2% (BldA) [Mass fraction] 97 % [facility] 07-24-2023 19:54-0500 Systolic blood pressure 106 mm[Hg] [facility] 02-25-2023 15:40-0400 Inhaled oxygen flow rate 2 L/min Dr. Dom Chaidez Work Phone: [facility] 02-25-2023 15:40-0400 SaO2% (BldA) [Mass fraction] 87 % Dr. Dom Chaidez Work Phone: [facility] 02-25-2023 15:37-0400 Body temperature 97.1 [degF] Dr. Dom Chaidez Work Phone: [facility] 02-25-2023 15:37-0400 Diastolic blood pressure 66 mm[Hg] Dr. Dom Chaidez Work Phone: [facility] 02-25-2023 15:37-0400 Heart rate 84 /min Dr. Dom Chaidez Work Phone: [facility] 02-25-2023 15:37-0400 Respiratory rate 24 /min Dr. Dom Chaidez Work Phone: [facility] 02-25-2023 15:37-0400 Systolic blood pressure 100 mm[Hg] Dr. Dom Chaidez Work Phone: [facility] 02-23-2023 12:25-0400 Body height 160.[address] Dom Chaidez Work Phone: [facility] 02-23-2023 12:25-0400 Body weight 43.[address] Dom Chaidez Work Phone: [facility] 02-21-2023 04:12-0400 Inhaled oxygen concentration 40 % Dr. Dom Chaidez Work Phone: [facility] 02-12-2023 17:05-0400 Body mass index (BMI) [Ratio] 16.8 kg/m2 Dr. Dom Chaidez Work Phone: [facility] 01-22-2023 10:16-0400 Body temperature 98 [degF] Dr. Dom Chaidez Work Phone: [facility] 01-22-2023 10:16-0400 Diastolic blood pressure 63 mm[Hg] Dr. Dom Chaidez Work Phone: [facility] 01-22-2023 10:16-0400 Heart rate 78 /min Dr. Dom Chaidez Work Phone: [facility] 01-22-2023 10:16-0400 Inhaled oxygen flow rate 2 L/min Dr. Dom Chaidez Work Phone: [facility] 01-22-2023 10:16-0400 Respiratory rate 16 /min Dr. Dom Chadiez Work Phone: [facility] 01-22-2023 10:16-0400 SaO2% (BldA) [Mass fraction] 94 % Dr. Dom Chaidez Work Phone: [facility] 01-22-2023 10:16-0400 Systolic blood pressure 98 mm[Hg] Dr. Dom Chaidez Work Phone: [facility] 01-22-2023 05:40-0400 Body mass index (BMI) [Ratio] 19.5 kg/m2 Dr. Dom Chaidez Work Phone: [facility] 01-22-2023 05:40-0400 Body weight 50.[address] Dom Chaidez Work Phone: [facility] 01-21-2023 09:17-0400 Body height 160.[address] Dom Chaidez Work Phone: [facility] 01-19-2023 09:00-0400 Inhaled oxygen concentration 30 % Dr. Dom Chaidez Work Phone: [facility] 08-26-2022 12:56-0400 Body height 162.[address] Sylvia Cobb Work Phone: [facility] 08-26-2022 12:56-0400 Diastolic blood pressure 66 mm[Hg] Dr. Sylvia Cobb Work Phone: [facility] 08-26-2022 12:56-0400 Heart rate 77 /min Dr. Sylvia Cobb Work Phone: [facility] 08-26-2022 12:56-0400 SaO2% (BldA) [Mass fraction] 91 % Dr. Sylvia Cobb Work Phone: [facility] 08-26-2022 12:56-0400 Systolic blood pressure 120 mm[Hg] Dr. Sylvia Cobb Work Phone: [facility] 08-20-2022 13:07-0400 Diastolic blood pressure 72 mm[Hg] Dr. Sylvia Cobb Work Phone: [facility] 08-20-2022 13:07-0400 Heart rate 83 /min Dr. Sylvia Cobb Work Phone: [facility] 08-20-2022 13:07-0400 SaO2% (BldA) [Mass fraction] 90 % Dr. Sylvia Cobb Work Phone: [facility] 08-20-2022 13:07-0400 Systolic blood pressure 141 mm[Hg] Dr. Sylvia Cobb Work Phone: [facility] 08-03-2022 14:12-0400 Inhaled oxygen flow rate 2 L/min Dr. Sylvia Cobb Work Phone: [facility] 08-03-2022 13:40-0400 Diastolic blood pressure 51 mm[Hg] Dr. Sylvia Cobb Work Phone: [facility] 08-03-2022 13:40-0400 Systolic blood pressure 84 mm[Hg] Dr. Sylvia Cobb Work Phone: [facility] 08-03-2022 13:19-0400 Body temperature 98.3 [degF] Dr. Sylvia Cobb Work Phone: [facility] 08-03-2022 13:19-0400 Heart rate 95 /min Dr. Sylvia Cobb Work Phone: [facility] 08-03-2022 13:19-0400 Respiratory rate 14 /min Dr. Sylvia Cobb Work Phone: [facility] 08-03-2022 13:19-0400 SaO2% (BldA) [Mass fraction] 95 % Dr. Sylvia Cobb Work Phone: [facility] 08-03-2022 11:47-0400 Body height 162.[address] Sylvia Cobb Work Phone: [facility] 08-03-2022 11:47-0400 Body weight 52.[address] Sylvia Cobb Work Phone: [facility] 08-03-2022 05:49-0400 Body mass index (BMI) [Ratio] 19.7 kg/m2 Dr. Sylvia Cobb Work Phone: [facility] 07-02-2022 07:06-0500 Body height 160.[address] Sylvia Cobb Work Phone: [facility] 07-02-2022 07:06-0500 Body weight 45.[address] Sylvia Cobb Work Phone: [facility] 07-01-2022 14:19-0500 Body mass index (BMI) [Ratio] 17.6 kg/m2 Dr. Sylvia Cobb Work Phone: [facility] 06-06-2022 13:59-0500 Body height 160.[address] Sylvia Cobb Work Phone: [facility] 06-06-2022 13:59-0500 Body mass index (BMI) [Ratio] 17.6 kg/m2 Dr. Sylvia Cobb Work Phone: [facility] 06-06-2022 13:59-0500 Body temperature 96 [degF] Dr. Sylvia Cobb Work Phone: [facility] 06-06-2022 13:59-0500 Body weight 45.[address] Sylvia Cobb Work Phone: [facility] 06-06-2022 13:59-0500 Diastolic blood pressure 77 mm[Hg] Dr. Sylvia Cobb Work Phone: [facility] 06-06-2022 13:59-0500 Heart rate 73 /min Dr. Sylvia Cobb Work Phone: [facility] 06-06-2022 13:59-0500 Respiratory rate 16 /min Dr. Sylvia Cobb Work Phone: [facility] 06-06-2022 13:59-0500 SaO2% (BldA) [Mass fraction] 93 % Dr. Sylvia Cobb Work Phone: [facility] 06-06-2022 13:59-0500 Systolic blood pressure 157 mm[Hg] Dr. Sylvia Cobb Work Phone: [facility] 05-02-2022 09:45-0500 Body height 160.[address] Sylvia Cobb Work Phone: [facility] Work Phone: 05-02-2022 09:45-0500 Body mass index (BMI) [Ratio] 17.3 kg/m2 Dr. Sylvia Cobb Work Phone: [facility] 05-02-2022 09:45-0500 Body temperature 98.6 [degF] Dr. Sylvia Cobb Work Phone: [facility] 05-02-2022 09:45-0500 Body weight 44.[address] Sylvia Cbob Work Phone: [facility] 05-02-2022 09:45-0500 Diastolic blood pressure 72 mm[Hg] Dr. Sylvia Cobb Work Phone: [facility] 05-02-2022 09:45-0500 Heart rate 84 /min Dr. Sylvia Cobb Work Phone: [facility] 05-02-2022 09:45-0500 Respiratory rate 18 /min Dr. Sylvia Cobb Work Phone: [facility] 05-02-2022 09:45-0500 SaO2% (BldA) [Mass fraction] 97 % Dr. Sylvia Cobb Work Phone: [facility] 05-02-2022 09:45-0500 Systolic blood pressure 124 mm[Hg] Dr. Sylvia Cobb Work Phone: [facility] Encounters Encounter Date Encounter Type Care Provider Facility Start: 01-25-2025 ambulatory Dom Chaidez Facilit y:[facility] Start: 01-14-2025 End: 01-14-[address] Dom Chaidez MD -Laboratory [facility] Start: 01-14-2025 End: 01-14-[address] Dom Chaidez MD Work Phone: -Laboratory [facility] Start: 06-23-2024 End: 06-23-2024 ambulatory Dom Chaidez Facility:[facility] Start: 05-06-2024 End: 05-06-2024 ambulatory Goldy Rain Facility:[facility] Start: 04-24-2024 End: 04-24-2024 Emergency department patient visit Agustin Quinones Facility:[facility] Start: 07-24-2023 End: 07-24-2023 Emergency department patient visit [facility] Work Phone: Start: 07-10-2023 End: 07-10-2023 ambulatory [facility] Work Phone: Start: 07-10-2023 End: 07-10-2023 Patient encounter procedure [facility] Start: 04-21-2023 End: 04-21-[address] Dom Chaidez Work Phone: [facility] Work Phone: Start: 04-21-2023 End: 04-21-[address] Dom Chaidez Work Phone: [facility] Work Phone: Start: 04-08-2023 End: 04-08-[address] Dom Chaidez Work Phone: [facility] Work Phone: Start: 04-08-2023 End: 04-08-[address] Dom Chaidez Work Phone: [facility] Start: 03-26-2023 End: 03-26-[address] Dom Chaidez Work Phone: [facility] Work Phone: Start: 03-26-2023 End: 03-26-[address] Dom Chaidez Work Phone: [facility] Start: 03-05-2023 End: 03-05-[address] Dom Chaidez Work Phone: [facility] Work Phone: Start: 03-05-2023 End: 03-05-[address] Dom Chaidez Work Phone: [facility] Start: 02-25-2023 Non-patient / Non-visit Dr. Dom Chaidez Work Phone: [facility] Work Phone: Start: 02-24-2023 Non-patient / Non-visit [facility] Work Phone: Start: 02-23-2023 Non-patient / Non-visit Dr. Dom Chaidez Work Phone: [facility] Work Phone: Start: 02-22-2023 Non-patient / Non-visit Dr. Dom Chaidez Work Phone: [facility] Work Phone: Start: 02-21-2023 Non-patient / Non-visit Dr. oDm Chaidez Work Phone: [facility] Work Phone: Start: 02-20-2023 Non-patient / Non-visit Dr. Dom Chaidez Work Phone: [facility] Work Phone: Start: 02-19-2023 Non-patient / Non-visit Dr. Dom Chaidez Work Phone: [facility] Work Phone: Start: 02-18-2023 Non-patient / Non-visit Dr. Dom Chaidez Work Phone: [facility] Work Phone: Start: 02-17-2023 Non-patient / Non-visit Dr. Dom Chaidez Work Phone: [facility] Work Phone: Start: 02-16-2023 Non-patient / Non-visit [facility] Work Phone: Start: 02-15-2023 Non-patient / Non-visit Dr. Dom Chaidez Work Phone: [facility] Work Phone: Start: 02-14-2023 Non-patient / Non-visit Dr. oDm Chaidez Work Phone: [facility] Work Phone: Start: 02-13-2023 Non-patient / Non-visit Dr. Dom Chaidez Work Phone: [facility] Work Phone: Start: 02-12-2023 Non-patient / Non-visit Dr. Dom Chaidez Work Phone: [facility] Work Phone: Start: 02-12-2023 End: 02-25-2023 Evaluation and management of inpatient Dr. Dom Chaidez Work Phone: [facility]Pro[facility] Care Unit Work Phone: Start: 01-24-2023 End: 01-24-[address] Dom Chaidez Work Phone: [facility] Work Phone: Start: 01-24-2023 End: 01-24-[address] Dom Chaidez Work Phone: [facility] Start: 01-22-2023 Non-patient / Non-visit Dr. Dom Chaidez Work Phone: [facility] Work Phone: Start: 01-21-2023 Non-patient / Non-visit Dr. Dom Chaidez Work Phone: [facility] Work Phone: Start: 01-21-2023 Non-patient / Non-visit Dr. Dom Chaidez Work Phone: [facility] Start: 01-20-2023 Non-patient / Non-visit Dr. Dom Chaidez Work Phone: [facility] Work Phone: Start: 01-19-2023 Non-patient / Non-visit Dr. Dom Chaidez Work Phone: [facility] Start: 01-19-2023 Non-patient / Non-visit Dr. Dom Chaidez Work Phone: [facility] Start: 01-18-2023 Non-patient / Non-visit Dr. Dom Chaidez Work Phone: [facility] Start: 01-18-2023 End: 01-22-2023 Evaluation and management of inpatient Dr. Dom Chaidez Work Phone: [facility] Work Phone: Start: 11-27-2022 End: 11-27-[address] Dom Chaidez Work Phone: [facility] Work Phone: Start: 11-27-2022 End: 11-27-[address] Dom Chaidez Work Phone: [facility] Start: 10-31-2022 End: 10-31-[address] Dom Chaidez Work Phone: [facility] Work Phone: Start: 10-31-2022 End: 10-31-[address] Dom Chaidez Work Phone: [facility] Start: 10-24-2022 Non-patient / Non-visit Dr. Dom Chaidez Work Phone: [facility] Start: 10-24-2022 End: 10-24-[address] Dom Chaidez Work Phone: [facility] Start: 10-21-2022 Non-patient / Non-visit Dr. Dom Chaidez Work Phone: [facility] Start: 10-21-2022 End: 10-21-[address] [facility] Start: 09-03-2022 End: 09-03-[address] Sylvia Cobb Work Phone: [facility] Work Phone: Start: 09-03-2022 End: 09-03-[address] Sylvia Cobb Work Phone: [facility]-Outpatient Bone Densitometry Start: 09-02-2022 Non-patient / Non-visit Dr. Sylvia Cobb Work Phone: [facility] Start: 09-02-2022 End: 09-02-[address] Sylvia Cobb Work Phone: [facility] Work Phone: Start: 09-02-2022 End: 09-02-[address] Syl[facility] Cobb [facility] Start: 08-26-2022 End: 08-26-[address] Sylvia Cobb Work Phone: [facility] Start: 08-20-2022 End: 08-20-[address] Sylvia Cobb Work Phone: [facility] V[facility] Start: 08-19-2022 End: 08-19-[address] Sylvia Cobb Work Phone: [facility] Start: 08-03-2022 Non-patient / Non-visit Dr. Sylvia Cobb Work Phone: [facility] Start: 08-03-2022 Non-patient / Non-visit Dr. Sylvia Cobb Work Phone: [facility] Start: 08-02-2022 Non-patient / Non-visit Dr. Sylvia Cobb Work Phone: [facility] Start: 08-02-2022 Non-patient / Non-visit Dr. Sylvia Cobb Work Phone: [facility] Start: 08-01-2022 Non-patient / Non-visit Dr. Sylvia Cobb Work Phone: [facility] Start: 08-01-2022 Non-patient / Non-visit Dr. Sylvia Cobb Work Phone: [facility] Start: 07-31-2022 Non-patient / Non-visit Dr. Sylvia Cobb Work Phone: [facility] Start: 07-30-2022 Non-patient / Non-visit Dr. Sylvia Cobb Work Phone: [facility] Start: 07-29-2022 Non-patient / Non-visit Dr. Sylvia Cobb Work Phone: [facility] Start: 07-29-2022 End: 08-03-2022 Evaluation and management of inpatient Dr. Sylvia Cobb Work Phone: [facility]Pro[facility] Start: 07-18-2022 End: 07-18-2022 Non-patient / Non-visit Dr. Sylvia Cobb Work Phone: [facility] Start: 07-15-2022 End: 07-15-[address] Sylvai Cobb Work Phone: [facility] Work Phone: Start: 07-15-2022 End: 07-15-[address] Sylvia Cobb Work Phone: [facility] Start: 07-02-2022 Non-patient / Non-visit Dr. Sylvia Cobb Work Phone: [facility] Start: 07-02-2022 End: 07-02-2022 Admission to same day surgery center Dr. Sylvia Cobb Work Phone: [facility]-Waste Handling Technician/Special Procedures Start: 06-18-2022 End: 06-18-[address] Sylvia Cobb Work Phone: [facility] Work Phone: Start: 06-18-2022 End: 06-18-[address] Sylvia Cobb Work Phone: [facility] Start: 06-17-2022 Non-patient / Non-visit Dr. Sylvia Cobb Work Phone: [facility] Start: 06-17-2022 Non-patient / Non-visit Dr. Sylvia Cobb Work Phone: [facility] Start: 06-17-2022 End: 06-17-[address] Sylvia Cobb Work Phone: [facility] Work Phone: Start: 06-17-2022 End: 06-17-[address] Sylvia Cobb Work Phone: [facility]Cardi[facility] Services Start: 06-06-2022 End: 06-06-[address] Sylvia Cobb Work Phone: [facility] Start: 05-09-2022 End: 05-09-[address] Sylvia Cobb Work Phone: [facility] Work Phone: Start: 05-09-2022 End: 05-09-[address] Sylvia Cobb Work Phone: [facility] Start: 05-02-2022 End: 05-02-[address] Sylvia Cobb Work Phone: [facility]-Laboratory Start: 05-02-2022 End: 05-02-[address] 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[employer] [facility] Start: 03-21-2022 End: 03-22-2022 ambulatory [facility] Facility:B Start: 03-21-2022 End: 03-21-2022 Patient encounter procedure NIMA MANCIA CONTRACT CLERK [employer] [facility] Start: 09-18-2021 End: 09-19-2021 ambulatory [facility] Facility:[facility] Start: 09-18-2021 End: 09-18-2021 Patient encounter procedure NIMA MANCIA CONTRACT CLERK [employer] [facility] Procedures Date Procedure Procedure Detail Performing Clinician Start: 01-14-2025 Vitamin D, 25-hydroxy measurement Dr. Lisa Chaidez MD Work Phone: Comment on above: Vitamin D StatusDeficiency: <20 ng/mL (5 0nmol/L)Insufficiency: 20-30 ng/mL (50-75 nmol/L)Sufficiency: 30-100 ng/mL (75-250 nmol/L)Toxicity: >100 ng/mL (>250 nmol/L) Start: 04-21-2023 CT of chest without contrast Dr. Dom salazar Work Phone: Start: 02-18-2023 Plain chest X-ray Dr. Dom Chaidez Work Phone: Start: 02-13-[address] Dom Chaidez Work Phone: Start: 02-12-2023 CT of chest without contrast Dr. Dom salazar Work Phone: Start: 02-12-2023 CT of abdomen and pelvis without contrast Dr. Dom Chaidez Work Phone: Start: 02-12-2023 Plain chest X-ray Dr. Dom Chaidez Work Phone: Start: 02-12-2023 Legionella pneumophila antigen assay Dr. Dom Chaidez Work Phone: Start: 02-12-2023 Streptococcus pneumoniae Antigen (M Dr. Dom Chaidez Work Phone: Start: 02-12-[address] Dom Chaidez Work Phone: Start: 01-21-[address] Dom Chaidez Work Phone: Start: 01-19-2023 Computed tomography angiography of abdominal and/or pelvic blood vessel Dr. Dom Chaidez Work Phone: Start: 01-19-[address] Dom pal Work Phone: Start: 01-18-2023 Bacteria identified in Blood by Culture Dr. Dom Chaidez Work Phone: Start: 01-18-2023 Measurement of occult blood in stool specimen using immunoassay Dr. Dom Chaidez Work Phone: Start: 01-18-[address] Dom Chaidez Work Phone: Start: 01-18-2023 Plain chest X-ray Dr. Dom Chaidez Work Phone: Start: 10-31-2022 CT of abdominal aorta with contrast Dr. Dom Chaidez Work Phone: Start: 09-03-2022 Dual energy X-ray absorptiometry Dr. Blessing Cobb Work Phone: Start: 08-01-2022 Plain chest X-ray Dr. Sylvia Cobb Work Phone: Start: 08-01-2022 Plain X-ray abdomen Dr. Syvlia Cobb Work Phone: Start: 07-29-[address] Sylvia Cobb Work Phone: Start: 07-29-2022 Femoral-femoral crossover arteriogram Dr. Sylvia Cobb Work Phone: Start: 07-15-[address] Sylvia Cobb Work Phone: Start: 06-17-2022 Cardiovascular stress test using pharmacologic stress agent Dr. Sylvia Cobb Work Phone: Start: 05-09-2022 CT of abdominal aorta with contrast Dr. Sylvia Cobb Work Phone: Peripheral arterial bypass R ROME DANIELLE Respiratory Panel (PCR) Dr. Sylvia Cobb Work Phone: Plan of Treatment Date Care Activity Detail Author Start: 02-25-2023 Patient discharge [facility] Start: 02-24-2023 Referral to service [facility] Start: 02-18-2023 Continuous pulse oximetry [facility] Start: 02-18-2023 Continuous positive airway pressure ventilation treatment [facility] Start: 02-18-2023 Dual pressure sponta neous ventilation support [facility] Start: 02-13-2023 Referral to [facility] Start: 02-12-2023 End: 02-12-2023 Following clinical pathway protocol [facility] Start: 02-12-2023 Assessment of risk o f venous thromboembolism [facility] Start: 02-12-2023 Elevation of head of bed [facility] Start: 02-12-2023 Inhalation therapy procedure [facility] Start: 02-12-2023 Insertion of cathete r into peripheral vein [facility] Start: 02-12-2023 Measuring intake and output [facility] Start: 02-12-2023 Oxygen therapy [facility] Start: 02-12-2023 Patient education [facility] Start: 02-12-2023 Patient referral to dietitian [facility] Start: 02-12-2023 Providing care accor ding to standard [facility] Start: 02-12-2023 Provision of activit y privileges [facility] Start: 02-12-2023 Referral to occupati onal therapist [facility] Start: 02-12-2023 Referral to service [facility] Start: 02-12-2023 Speech therapy assessment [facility] Start: 02-12-2023 [facility] Start: 02-12-2023 [facility] Start: 02-12-2023 Admission procedure [facility] Start: 02-12-2023 Patient referral to dietitian [facility] Start: 01-22-2023 Patient discharge [facility] Start: 01-21-2023 End: 01-21-2023 Referral to service [facility] Start: 01-20-2023 End: 01-20-2023 [facility] Start: 01-20-2023 Care planning and pr oblem solving actions [facility] Start: 01-20-2023 Inhalation therapy procedure [facility] Start: 01-20-2023 [facility] Start: 01-19-2023 Neurovascular assessment [facility] Start: 01-19-2023 End: 01-19-2023 Administration of blood product [facility] Start: 01-19-2023 Catheterization of vein [facility] Start: 01-19-2023 Transfusion of red blood cells [facility] Start: 01-18-2023 End: 01-19-2023 [facility] Start: 01-18-2023 Application of inter mittent pneumatic compression device [facility] Start: 01-18-2023 Following clinical p athway protocol [facility] Start: 01-18-2023 Transfusion of blood product [facility] Start: 01-18-2023 Consultation [facility] Start: 01-18-2023 Assessment of risk o f venous thromboembolism [facility] Start: 01-18-2023 Bedrest [facility] Start: 01-18-2023 Insertion of cathete r into peripheral vein [facility] Start: 01-18-2023 Measuring intake and output [facility] Start: 01-18-2023 Oxygen therapy [facility] Start: 01-18-2023 Patient referral to dietitian [facility] Start: 01-18-2023 Providing care accor ding to standard [facility] Start: 01-18-2023 Referral to gastroen terology service [facility] Start: 01-18-2023 Referral to occupati onal therapist [facility] Start: 01-18-2023 Referral to service [facility] Start: 01-18-2023 Vital signs measurements [facility] Start: 01-18-2023 Admission procedure [facility] Start: 01-18-2023 Bacteria identified in Blood by Culture Blood Culture [facility] Start: 01-18-2023 Administration of bl ood product [facility] Start: 01-18-2023 Administration of bl ood product [facility] Start: 01-18-2023 End: 01-18-2023 Blood culture [facility] Start: [facility] Start: 01-18-2023 [facility] Start: 08-05-2022 Referral to service [facility] Start: 08-03-2022 Patient discharge [facility] Start: 08-02-2022 [facility] Start: 08-01-2022 Referral to gastroen terology service [facility] Start: 08-01-2022 Measurement of occul t blood in stool specimen using immunoassay [facility] Start: 08-01-2022 Oxygen therapy [facility] Start: 08-01-2022 Transfusion of red blood cells [facility] Start: 08-01-2022 Assessment of risk o f venous thromboembolism [facility] Start: 08-01-2022 Consultation [facility] Start: 08-01-2022 Administration of bl ood product [facility] Start: 07-31-2022 [facility] Start: 07-30-2022 Care planning and pr oblem solving actions [facility] Start: 07-30-2022 Removal of urinary catheter [facility] Start: 07-30-2022 [facility] Start: 07-30-2022 Inhalation therapy procedure [facility] Start: 07-29-2022 Administration of bl ood product [facility] Start: 07-29-2022 Following clinical p athway protocol [facility] Start: 07-29-2022 Ambulation without limitation [facility] Start: 07-29-2022 Assessment of risk o f venous thromboembolism [facility] Start: 07-29-2022 Continuous pulse oximetry [facility] Start: 07-29-2022 Elevation of head of bed [facility] Start: 07-29-2022 Incentive spirometry [facility] Start: 07-29-2022 Insertion of cathete r into peripheral vein [facility] Start: 07-29-2022 Measuring intake and output [facility] Start: 07-29-2022 Patient referral to dietitian [facility] Start: 07-29-2022 Providing care accor ding to standard [facility] Start: 07-29-2022 Provision of activit y privileges [facility] Start: 07-29-2022 Referral to occupati onal therapist [facility] Start: 07-29-2022 Referral to service [facility] Start: 07-29-2022 Vascular disease ris k assessment [facility] Start: 07-29-2022 Vital signs measurements [facility] Start: 07-29-2022 [facility] Start: 07-29-2022 Verification routine [facility] Start: 07-29-2022 Admission procedure [facility] CBC W Auto Different ial panel - Blood [facility] Ferritin [Mass/volum e] in Serum or Plasma [facility] Iron and Iron bindin g capacity panel - Serum or Plasma [facility] Patient referral [facility] Work Phone: Immunizations Immunization Date Immunization Notes Care Provider Steve morgan 02-13-2023 Influenza High-Dose Quadrivalent Dr. Dom Chaidez Work Phone: [facility] 03-21-2022 influenza, high dose seasonal, preservative-free NIMA MANCIA CONTRACT CLERK [employer] [facility] 02-22-2021 SARS-CoV-2 mRNA (tozinameran) vaccine NIMA MANCIA CONTRACT CLERK [employer] [facility] 08-15-2020 SARS-CoV-2 mRNA (tozinameran) vaccine NIMA MANCIA CONTRACT CLERK [employer] [facility] Comment on above: Result Comment: [employer] [place] 07-25-2020 SARS-CoV-2 mRNA (tozinameran) vaccine NIMA MANCIA CONTRACT CLERK [employer] [facility] Comment on above: Result Comment: [employer] 03-06-2020 pneumococcal polysaccharide vaccine, 23 valent; Translations: [Pneumovax 23] NIMA MANCIA CONTRACT CLERK [employer] [facility] Payers Date Payer Category Payer Self-pay [id number] 2022 Unknown [id number] 2021 Medicare [id number] 2021 Unknown [id number] 1950 Unknown [id number] [id number] 1950 Unknown [id number] 2.16.8 [id number] 1950 Unknown [id number] 2.16.8 [id number] Unknown [id number] 2.16.8 [id number] Unknown [id number] 2.16.8 [id number] Unknown [id number] 2.16.8 [id number] Unknown [id number] 2.16.8 [id number] Unknown [id number] 2.16.8 [id number] Social History Date Type Detail Facility Start: 05-26-2019 Tobacco smoking status Heavy t obacco smoker (finding) [facility] Comment on above: daily smoke exposure () Start: 1950 Sex Assigned At Male A [facility] Start: 05-02-2022 End: 02-12-2023 Tobacco smoking status NHIS Unknown if ever smoked [facility] Start: 07-14-2019 Cigarettes [facility] Start: 04-24-2024 Tobacco smoking stat us NHIS Smokes tobacco daily (finding) [facility] Medical Equipment Procedure Code Equipment Code Equipment Origin al Text Equipment Identifier Dates Femoral-femoral crossover arteriogram FEM-POP ARTERY >30CM FDA Start: 07-29-2022 Femoral-femoral crossover arteriogram Ligation clip, metallic ()[id number] FDA Start: 07-29-2022 Femoral-femoral crossover arteriogram ZILVER CHARO [id number] FDA Start: 07-29-2022 Femoral-femoral crossover arteriogram Plant polysaccharide haemostatic agent, bioabsorbable ()[id number] FDA Start: 07-29-2022 Femoral-femoral crossover arteriogram Ligation clip, metallic ()[id number] FDA Start: 07-29-2022 Femoral-femoral crossover arteriogram FEM-POP ARTERY >30CM FDA Start: 07-29-2022 Femoral-femoral crossover arteriogram ZILVER CHARO [id number] FDA Start: 07-29-2022 Femoral-femoral crossover arteriogram FEM-POP ARTERY >30CM FDA Start: 07-29-2022 Femoral-femoral crossover arteriogram ZILVER CHARO [id number] FDA Start: 07-29-2022 Femoral-femoral crossover arteriogram FEM-POP ARTERY >30CM FDA Start: 07-29-2022 Femoral-femoral crossover arteriogram ZILVER CHARO [id number] FDA Start: 07-29-2022 Femoral-femoral crossover arteriogram FEM-POP ARTERY >30CM FDA Start: 07-29-2022 Femoral-femoral crossover arteriogram ZILVER CHARO [id number] FDA Start: 07-29-2022 Femoral-femoral crossover arteriogram FEM-POP ARTERY >30CM FDA Start: 07-29-2022 Femoral-femoral crossover arteriogram ZILVER CHARO 8X60 FDA Start: 07-29-2022 Femoral-femoral crossover arteriogram FEM-POP ARTERY >30CM FDA Start: 07-29-2022 Femoral-femoral crossover arteriogram ZILVER CHARO 8X60 FDA Start: 07-29-2022 Femoral-femoral crossover arteriogram FEM-POP ARTERY >30CM FDA Start: 07-29-2022 Femoral-femoral crossover arteriogram ZILVER CHARO 8X60 FDA Start: 07-29-2022 Femoral-femoral crossover arteriogram FEM-POP ARTERY >30CM FDA Start: 07-29-2022 Femoral-femoral crossover arteriogram ZILVER CHARO [id number] FDA Start: 07-29-2022 Femoral-femoral crossover arteriogram FEM-POP ARTERY >30CM FDA Start: 07-29-2022 Femoral-femoral crossover arteriogram ZILVER CHARO 8X60 FDA Start: 07-29-2022 Femoral-femoral crossover arteriogram FEM-POP ARTERY >30CM FDA Start: 07-29-2022 Femoral-femoral crossover arteriogram ZILVER CHARO 8X60 FDA Start: 07-29-2022 Femoral-femoral crossover arteriogram FEM-POP ARTERY >30CM FDA Start: 07-29-2022 Femoral-femoral crossover arteriogram ZILVER CHARO 8X60 FDA Start: 07-29-2022 Femoral-femoral crossover arteriogram FEM-POP ARTERY >30CM FDA Start: 07-29-2022 Femoral-femoral crossover arteriogram ZILVER CHARO 8X60 FDA Start: 07-29-2022 Colonoscopy Ligation clip, metallic ()[id number] FDA Start: 01-21-2023 Colonoscopy Ligation clip, metallic ()[id number] FDA Start: 01-21-2023 Goals Date Patient Goal Desired Activity /State Functional Status Date Assessment Result Facility 02-25-2023 Functional status Activity Abili ty With Assist of 2 [facility] Work Phone: 02-24-2023 Functional status Bedrest [facility] Work Phone: 01-22-2023 Functional status Up ad abran [facility] Work Phone: 08-03-2022 Functional status Activity Abili ty Unable to Assess [facility] Work Phone: 08-03-2022 Functional status Ambulates [facility] Work Phone: Mental Status Date Assessment Result Facility 02-25-2023 Cognitive function Voice/Name [facility] Work Phone: 01-22-2023 Cognitive function Voice/Name [facility] Work Phone: 08-03-2022 Cognitive function Voice/Name [facility] Work Phone: Clinical Notes 03-21-2022 to 04-24-2024 Note Date & Type Note Facility 04-24-2024 Note [facility] Medical Records Department [address] [place] [address] Consultation 04/24/241948 MR#: [id number] Acct: [id number] Name: RYAN VAZ Rep #: [id number] : 1950 73 From: Galdino Segura MD PCP: Dr. Dom Chaidez MD Status:REG ER Location: ED Assessment Plan Assessment/Plan (1) Epistaxis: PLAN: Plan 73 year old male on plavix for LE PVD -rhino rocket removed, merocel placed. -f/u at [facility] next week (very established patient) HPI Consult Data Date of Consult: 04/24/24 HPI Narrative Reason for Consultation: epistaxis HPI Narrative: RYAN VAZ, is a 73 M who presents with epistaxis. he is on plavix for PVD, s/p numerous revascularization procedures. [facility] Medical History (Updated 04/24/24 @ 19:[address] Galdino Segura MD) Incidental pulmonary nodule, less than or equal to 3mm Acute respiratory failure with hypoxemia Chronic bullous emphysema COPD exacerbation Hard of hearing Wears eyeglasses Alcohol abuse Hypoglycemia High cholesterol Neuropathy Head injury Passed out Heartburn Smoker COPD (chronic obstructive pulmonary disease) Shortness of breath Leg pain Leg cramps Edema History of stress test Osteoporosis Peripheral arterial occlusive disease Back pain HTN (hypertension) PAOD (peripheral arterial occlusive disease) Home Medications ???Medication ???Instructions ???Recorded ???Last Taken ???Type pantoprazole 40 mg tablet,delayed 40 mg PO BID ACID REFLUX 30 days 01/22/23 02/07/23 Rx release #60 tabs cholecalciferol (vitamin D3) 25 25 mcg PO DAILY SUPPLEMENT 02/12/23 02/07/23 History mcg (1,000 unit) capsule (Vitamin D3) aspirin 81 mg chewable tablet 81 mg PO BREAKFAST #0 tabs 02/25/23 Unknown Rx clopidogrel 75 mg tablet (Plavix) 75 mg PO DAILY #30 tabs 02/25/23 Unknown Rx dronabinol 2.5 mg capsule 2.5 mg PO BIDAC #60 caps 02/25/23 Unknown Rx ipratropium 0.5 mg-albuterol 3 mg 3 ml inhalation 4XD #0 mL 02/25/23 Unknown Rx (2.5 mg base)/3 mL nebulization soln mirtazapine 15 mg tablet (Remeron) 15 mg PO DAILY #30 tabs 02/25/23 Unknown Rx rosuvastatin 20 mg tablet 20 mg PO DAILY CHOLESTEROL #1 TAB 02/25/23 02/07/23 Rx Allergy/AdvReac Type Severity Reaction Status Date / Time ciprofloxacin HCl (From Allergy Severe Nausea Verified 07/24/23 19:55 Cipro) Family History Father Hypertension Cancer lung Other Osteoporosis Surgical History H/O esophagogastroduodenoscopy Hx of right cataract extraction Hx of left cataract extraction Hx of colonoscopy Status post peripheral artery angioplasty Social History (Updated 02/12/23 @ 16:[address] Temitope Son DO) household members: family housing: house Smoking Status: Current every day smoker tobacco type: cigarettes alcohol intake: never substance use type: does not use ROS Constitutional Constitutional: Reports systems reviewed and no addt'l complaints, except as documented Physical Exam Const alert and oriented x3 General Appearance: cooperative Orientation / Consciousness: awake Exam Limitations: no limitations HEENT normocephalic HEENT Narrative: right rhino rocket in 2cm. no current bleeding. Head and Scalp: normal to inspection Face and Sinus: normal facial exam 04/24/241952 Cosigner Signature (if applicable): CC: Dr. Dom Chaidez MD Signed [facility] 01-22-2023 Discharge summary Note Date/Time January 22, 2023 11:11am [facility] Medical Records Department [address] [place] [address] Instructions for Home/Discharge Instructions 01/22/23 1107 MR#: [id number] Acct: [id number] Name: RYAN VAZ Rep #:[id number] : 1950 72 From: Otoniel luna DO PCP: Dr. Dom Chaidez MD Status:AD M IN Discharge Instructions Diet Discharge Diet: No restrictions Activity Discharge Activity: Return to Normal Activity Weight Bearing Status: Weight bearing as tolerated Follow Up Care Please Follow Up With: Dom Chaidez MD When: As needed Test Results: Test results from this visit will be discussed in further detail at your follow-up appointment, if applicable. Pending Tests Upon Discharge: None Discharge Plan Admission Admit Date/Time: 01/18/23 14:08 Primary Reason for Your Visit: GI bleed Attending Provider: Otoniel Prasad Primary Care Provider: Dom Chaidez Consulting Providers: Lizzy Meza; Franco Collins; Hugh Ferrer; Huy Gonzalez; Nikolas Bernstein; Shelia Cisneros [employer] Instructions Additional Instructions / Restrictions: Please HOLD on taking Xarelto for 1 week post discharge given your recent GI bleed; can restart on 01/29. Also HOLD on taking your blood pressure medication (valsartan?hydrochlorothiazide) for now, given that your blood pressures have been slightly low to normal while in the hospital. Can discuss with your primary care doctor about when to start those again as needed. Discharge Orders/Prescriptions Prescriptions: New pantoprazole 40 mg Tablet,Delayed Release (Dr/Ec) 40 mg PO BID 30 Days Qty: 60 0RF Continued aspirin [Adult Low Dose Aspirin] 81 mg tablet,delayed release (DR/EC) 81 mg PO DAILY Hold Instructions: Order Changed albuterol sulfate 90 mcg/actuation HFA aerosol inhaler 1 inh inhalation Patient Comments: INHALE 2 PUFFS BY MOUTH EVERY 4 HOURS NEEDED rosuvastatin 20 mg tablet 20 mg PO DAILY Patient Comments: TAKE 1 TABLET BY MOUTH ONCE DAILY glucose 4 GM tablet,chewable 4 g PO DAILY cilostazol 50 mg tablet 50 mg PO DAILY guaifenesin [Mucus Relief ER] 600 mg Tablet Extended Release 12hr 600 mg PO BID 30 Days Qty: 60 0RF tamsulosin 0.4 mg Capsule 0.4 mg PO DAILY 30 Days Qty: 30 0RF Anoro Ellipta 62.5-25 mcg/actuation Blister With Device 1 inh inhalation DAILY Qty: 30 0RF Held Xarelto 2.5 mg tablet 2.5 mg PO BID Qty: 60 5RF Hold Instructions: Resume on 01/29/23. Discontinued valsartan-hydrochlorothiazide 320-12.5 mg tablet 1 tab PO DAILY Patient Comments: TAKE 1 TABLET BY MOUTH ONCE DAILY pantoprazole 40 mg tablet,delayed release (DR/EC) 40 mg PO DAILY Qty: 90 3RF diltiazem HCl 180 MG capsule 180 mg PO DAILY Hold Instructions: Please follow-up with your PCP to monitor your BP and manage any further changes to your medications. Patient Comments: BLOOD PRESSURE clopidogrel 75 mg Tablet 75 mg PO DAILY 90 Days Qty: 90 3RF rosuvastatin 10 mg tablet Patient Comments: TAKE 1 TABLET BY MOUTH ONCE DAILY Referrals / Follow Up: Dom Chaidez MD [Primary Care Provider] - Disposition Disposition (needs filled in before D/C Order can be placed): Home Health Service 01/22/23 1113<Electronically signed by Otoniel Prasad DO>Otoniel Prasad DO CC: [employer]-C Shelia Cisneros; Dr. Franco Collins MD; Dr. Hugh Ferrer DO; Dr. Onesimo Chaidez MD; Dr. Huy Gonzalez MD; Dr. Lizzy Meza MD; Dr. Nikolas Bernstein MD ~ Signed [facility] Work Phone: [phone]) 888-927009-05-2023 Progress note Author Otoniel Prasad [facility] January 21, 2023 5:26pm Note Date/Time January 21, 2023 5:26pm [facility] Medical Records Department [address] [place] [address] Progress Note - Hospitalist 01/21/23 1717 MR#: [id number] Acct: [id number] Name: RYAN VAZ Rep #:[id number] : 1950 72 From: Otoniel luna DO PCP: Dr. 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 Tolerated procedure well. Still fairly fatigued post procedure. Denies any abdominal pain or discomfort. Denies any fevers or chills. No other acute concerns. Objective Data Objective Data Vital Signs: Vital Signs Temp Pulse Resp BP Pulse Ox O2 Del Method O2 Flow Rate 97.5 F L 87 20 H 108/73 100 Nasal Cannula 2 01/21/23 13:55 01/21/23 15:20 01/21/23 15:20 01/21/23 13:55 01/21/23 13:55 01/21/23 14:00 01/21/23 14:00 FiO2 30 01/19/23 09:00 Oxygen Flow Rate (L/min) 2 Oxygen Delivery Method Nasal Cannula Weight: 47.8 kg Body Mass Index (BMI) 18.6 Intake & Output: Intake and Output for Last 24 Hours 01/19/23 01/20/23 01/21/23 23:59 23:59 23:59 Intake Total 3919.42 / 3919.42 1353.09 / 1353.09 351 / 351 Output Total 1650 / 1650 1450 / 1650 200 / 200 Balance 2269.42 / 2269.42 -96.91 / -296.91 151 / 151 Medical Nutrition Assessment Dietitian: Malnutrition Criteria Met Start: 01/19/23 11:19 Freq: Status: Active Protocol: Document 01/19/23 11:23 SLA (Rec: 01/19/23 11:23 SLA [id number]) Nutrition Malnutrition Evidence of Malnutrition Exists Yes Malnutrition (severe): Chronic Evidenced By Suboptimal Energy Intake ( Severe),Weight Loss (Severe), Physical Changes (Severe) Clinical Problem Chronic Disease or Condition Related Malnutrition Etiology related to inadequate energy intake Signs/Symptoms as evidenced by 23.2% unintended wt loss x 6 mo, po intake <50% of est nutritional needs x more than one month, obvious fat/muscle loss throughout body and BMI <16 Status Active Problem Recommendation Dietitian Recommendations/Changes As medically able, rec QUENTIN to liberal regular d/t signs and symptoms of malnutrition As medically able, rec chocolate ensure plus high protein 4x/day w/ medpass for increased nutrition if consumed As medically able, rec chocolate magic cup w/ lunch and dinner for increased nutrition if consumed Monitor for s/s of refeeding syndrome Lab / Micro Data 01/21/23 06:50 01/21/23 06:50 Labs: Laboratory Results - last 24 hr 01/21/23 06:50: WBC 7.8, RBC 3.93 L, Hgb 11.4 L, Hct 35.8 L, MCV 91.1, MCH 29.0,MCHC 31.8 L, RDW Std Deviation 51.9 H, RDW Coeff of Barbara 15.3 H, Plt Count 177, MPV 9.8, Immature Gran % (Auto) 0.400, Neut % (Auto) 76.2 H, Lymph % (Auto) 10.4L, [place] % (Auto) 9.9, Eos % (Auto) 2.8, Baso % (Auto) 0.3, Absolute Neuts (auto)5.9, Absolute Lymphs (auto) 0.81 L, Nucleated RBC % 0, Sodium 134 L, Potassium 4.4, Chloride 106, Carbon Dioxide 23.0, Anion Gap 5, BUN 22 H, Creatinine 1.31 H, Estim Creat Clear Calc 33.95, Est GFR (MDRD) Af Amer 69, Est GFR (MDRD) Non-Af57 L, BUN/Creatinine Ratio 16.8, Glucose 97, Calcium 8.1 L Micro: Microbiology 01/18/23 12:02 Blood Culture (Wb) - Right Hand Blood Culture - Preliminary No growth in 48 hours. 01/18/23 11:56 Blood Culture (Wb) - Anticubital Left Blood Culture - Preliminary No growth in 48 hours. 01/18/23 21:15 Urine, Clean Catch Urine Culture - Final Culture exhibits no growth. 01/18/23 12:45 Stool Stool Occult Blood (BLESSING) - Final Physical Exam Const alert, oriented x3 and no apparent distress Constitutional Narrative: Thin elderly male, lying comfortably in bed, conversing normally, no acute distress. Appears fatigued. General Appearance: cooperative and comfortable HEENT normocephalic, head/scalp atraumatic, hearing grossly normal bilaterally, nasal mucous membranes and turbinates normal and moist oral mucous membranes Eyes PERRL, EOMs intact bilaterally and conjunctivae normal Neck full ROM, no lymphadenopathy and supple Lymph Lymphatic: no lymphadenopathy noted Chest inspection of chest normal Resp normal respiratory effort, normal air movement, no use of accessory muscles and clear to auscultation bilaterally Cardio regular rate, regular rhythm, no murmurs and peripheral pulses 2+ throughout GI normal to inspection, nondistended, normoactive bowel sounds, soft to palpation,non-tender and non-distended Back/Spine normal ROM Extremity normal to inspection, full ROM and no pedal edema Skin no rashes or lesions noted Psych mental status grossly normal Assessment & Plan Assessment/Plan (1) GI bleed: PLAN: Plan Patient is a 72-year-old male with history of COPD on home O2, peripheral vascular disease, GERD, BPH and hypertension who presented to [facility] on 01/18/2023 with epigastric pain and generalized weakness. 1. GI bleed With acute blood loss anemia and hypotension on admission requiring ICU placement. GI following, s/p EGD 01/19 with 4 nonbleeding angiodysplastic lesionsin duodenum treated with heater probe. Attempted colonoscopy without bowel preparation given degree of anemia as noted below; hematin found in entire colonalong with 2 small localized angiodysplastic lesions in ascending colon that were actively bleeding, treated with epinephrine. S/p repeat colonoscopy on 01/21, found to have nonbleeding external and internal hemorrhoids, as well as 20 mm polyp that was removed and area was injected; no active bleeding noted. ?GI following, appreciate recs. Continue PPI drip and octreotide drip for now, will likely de-escalate tomorrow. Monitor hemoglobin daily. 2. Acute blood loss anemia, known chronic anemia Secondary to GI bleed as noted above. Hemoglobin 5.4 on admit, dropped to 4.1 prior to any blood transfusion. Last known hemoglobin was 9.5 on 11/27/2022. S/p 3 units of packed red blood cells with improvement of hemoglobin to 8.1. Again had downtrend of hemoglobin to 6 on 01/19, s/p 2 more units of packed red blood cells with improvement in hemoglobin to 11.4. Hemoglobin stable at 10.8 on 01/20. Iron studies showed significant iron deficiency, iron deficit calculated to be approximately 650 mg. ?Treatment of GI bleed as noted above. Monitor hemoglobin daily. Will give 2 doses of 20 mg of IV iron today and tomorrow to replete iron stores. 3. Hypotension, resolved ? Suspected secondary to GI bleed and acute blood loss anemia as noted above. Blood pressure stable after patient received several units of packed red blood cells as noted above. Transferred out of ICU on 01/20. Has remained stable sincethen. 4. NOEL, improving ? Presumed secondary to hypotension from blood loss as noted above. Likely withsome degree of ATN at this time. Creatinine 1.9 on admission, baseline appears to be around 1.0. Improved to 1.3 on 01/21. Good urine output. Monitor BMP daily. 5. COPD ? Per patient, has home O2 prescribed but had not been wearing it at home. Has consistently required 2 to 3 L nasal cannula since admission. Continue supplemental oxygen as needed. Continue home bronchodilators. 6. Peripheral vascular disease ? Has aspirin, Plavix, Xarelto 2.5 mg twice daily, statin noted on home med list. Unclear what patient is actually taking at home. Holding all AC and antiplatelet agents given GI bleed as above. Continue home statin. We will determine appropriate medication regimen on discharge. 7. Chronic debility ? PT/OT/case management following. Discussed patient's condition with family members today. Planning for home with home health care on discharge, likely tomorrow. Patient also qualifies for palliative referral for COPD/symptom management, and referral was placed. DVT prophylaxis: SCDs CODE STATUS: DNR CCA, DO NOT INTUBATE Expected disposition: Home with home health care, likely tomorrow Total clinical time spent by myself addressing the patient's medical issues, reviewing all the data, and collaborating with patient's care team: 35 minutes. Charges/Coding Visit Charges Inpatient E&M: 45489 Subs Hosp L2 01/21/23 1726 <Electronically signed by Otoniel Prasad DO> Cosigner Signature (if applicable): CC: ~ Signed [facility] Work Phone: 1(202) 223-638709-05-2023 Procedure [facility] 01-21-2023 [facility]09-04-2023 Progress note Author [facility] January 20, 2023 4:17pm Note Date/Time January 20, 2023 4:17pm [facility] Medical Records Department [address] [place] [address] Progress Note - Hospitalist 01/20/23 1600 MR#: [id number] Acct: [id number] Name: RYAN VAZ Rep #:[id number] : 1950 72 From: Otoniel luna DO PCP: Dr. Dom Chaidez MD Status:AD M IN Location: ICU ICU03-1 Reason for Visit Reason for Visit: Diagnoses Iron deficiency anemia secondary to blood loss (chronic) (01/18/23) Anemia, unspecified (01/18/23) Acidosis, unspecified (01/18/23) Idiopathic hypotension (01/18/23) Hypotension, unspecified (01/18/23) Subjective Subjective No acute events overnight. Patient seen at bedside this morning. Laying comfortably in bed, conversing normally, no acute distress. Denies any acute pain or discomfort this morning. Denies any lightheadedness or dizziness. Denies any dark or bloody bowel movements. Denies any fevers or chills. No other acute concerns. Objective Data Objective Data Vital Signs: Vital Signs Temp Pulse Resp BP Pulse Ox O2 Del Method O2 Flow Rate 98.9 F 88 20 H 129/78 H 98 Nasal Cannula 2 01/20/23 14:31 01/20/23 14:31 01/20/23 14:31 01/20/23 14:31 01/20/23 14:30 01/20/23 14:34 01/20/23 14:34 FiO2 30 01/19/23 09:00 Oxygen Flow Rate (L/min) 2 Oxygen Delivery Method Nasal Cannula Weight: 46.4 kg Body Mass Index (BMI) 18.1 Intake & Output: Intake and Output for Last 24 Hours 01/18/23 01/19/23 01/20/23 23:59 23:59 23:59 Intake Total 3609.21 / 3609.21 3919.42 / 3919.42 535.92 / 535.92 Output Total 200 / 200 1650 / 1650 1450 / 1450 Balance 3409.21 / 3409.21 2269.42 / 2269.42 -914.08 / -914.08 Medical Nutrition Assessment Dietitian: Malnutrition Criteria Met Start: 01/19/23 11:19 Freq: Status: Active Protocol: Document 01/19/23 11:23 SLA (Rec: 01/19/23 11:23 SLA [id number]) Nutrition Malnutrition Evidence of Malnutrition Exists Yes Malnutrition (severe): Chronic Evidenced By Suboptimal Energy Intake ( Severe),Weight Loss (Severe), Physical Changes (Severe) Clinical Problem Chronic Disease or Condition Related Malnutrition Etiology related to inadequate energy intake Signs/Symptoms as evidenced by 23.2% unintended wt loss x 6 mo, po intake <50% of est nutritional needs x more than one month, obvious fat/muscle loss throughout body and BMI <16 Status Active Problem Recommendation Dietitian Recommendations/Changes As medically able, rec QUENTIN to liberal regular d/t signs and symptoms of malnutrition As medically able, rec chocolate ensure plus high protein 4x/day w/ medpass for increased nutrition if consumed As medically able, rec chocolate magic cup w/ lunch and dinner for increased nutrition if consumed Monitor for s/s of refeeding syndrome Lab / Micro Data 01/20/23 03:45 01/20/23 03:45 Labs: Laboratory Results - last 24 hr 01/20/23 03:45: WBC 7.6, RBC 3.67 L, Hgb 10.8 L, Hct 33.4 L, MCV 91.0, MCH 29.4,MCHC 32.3, RDW Std Deviation 50.9 H, RDW Coeff of Barbara 15.5 H, Plt Count 179, MPV9.8, Immature Gran % (Auto) 0.300, Neut % (Auto) 78.4 H, Lymph % (Auto) 10.4 L, [place] % (Auto) 8.3, Eos % (Auto) 2.2, Baso % (Auto) 0.4, Absolute Neuts (auto) 5.9, Absolute Lymphs (auto) 0.79 L, Nucleated RBC % 0, Sodium 137, Potassium 3.8, Chloride 110 H, Carbon Dioxide 21.0, Anion Gap 6, BUN 32 H, Creatinine 1.44H, Estim Creat Clear Calc 29.98, Est GFR (MDRD) Af Amer 62, Est GFR (MDRD) Non-Af 51 L, BUN/Creatinine Ratio 22.2 H, Glucose 110 H, Calcium 7.9 L, Phosphorus 3.6, Magnesium 1.6 Micro: Microbiology 01/18/23 12:02 Blood Culture (Wb) - Right Hand Blood Culture - Preliminary No growth in 48 hours. 01/18/23 11:56 Blood Culture (Wb) - Anticubital Left Blood Culture - Preliminary No growth in 48 hours. 01/18/23 21:15 Urine, Clean Catch Urine Culture - Final Culture exhibits no growth. 01/18/23 12:45 Stool Stool Occult Blood (BLESSING) - Final Physical Exam Const alert, oriented x3 and no apparent distress Constitutional Narrative: Thin elderly male, lying comfortably in bed, conversing normally, no acute distress. General Appearance: cooperative and comfortable HEENT normocephalic, head/scalp atraumatic, hearing grossly normal bilaterally, nasal mucous membranes and turbinates normal and moist oral mucous membranes Eyes PERRL, EOMs intact bilaterally and conjunctivae normal Neck full ROM, no lymphadenopathy and supple Lymph Lymphatic: no lymphadenopathy noted Chest inspection of chest normal Resp normal respiratory effort, normal air movement, no use of accessory muscles and clear to auscultation bilaterally Cardio regular rate, regular rhythm, no murmurs and peripheral pulses 2+ throughout GI normal to inspection, nondistended, normoactive bowel sounds, soft to palpation,non-tender and non-distended Back/Spine normal ROM Extremity normal to inspection, full ROM and no pedal edema Skin no rashes or lesions noted Psych mental status grossly normal Assessment & Plan Assessment/Plan (1) GI bleed: PLAN: Plan Patient is a 72-year-old male with history of COPD on home O2, peripheral vascular disease, GERD, BPH and hypertension who presented to [facility] on 01/18/2023 with epigastric pain and generalized weakness. 1. GI bleed With acute blood loss anemia and hypotension on admission requiring ICU placement. GI following, s/p EGD 01/19 with 4 nonbleeding angiodysplastic lesionsin duodenum treated with heater probe. Attempted colonoscopy without bowel preparation given degree of anemia as noted below; hematin found in entire colonalong with 2 small localized angiodysplastic lesions in ascending colon that were actively bleeding, treated with epinephrine. ? GI following, appreciate recs. Continue PPI drip and octreotide drip. Completing colonoscopy prep today with plan for colonoscopy tomorrow morning. Monitor hemoglobin daily. 2. Acute blood loss anemia, known chronic anemia Secondary to GI bleed as noted above. Hemoglobin 5.4 on admit, dropped to 4.1 prior to any blood transfusion. Last known hemoglobin was 9.5 on 11/27/2022. S/p 3 units of packed red blood cells with improvement of hemoglobin to 8.1. Again had downtrend of hemoglobin to 6 on 01/19, s/p 2 more units of packed red blood cells with improvement in hemoglobin to 11.4. Hemoglobin stable at 10.8 on 01/20. Iron studies showed significant iron deficiency. ?Treatment of GI bleed as noted above. Monitor hemoglobin daily. Can consider IV iron replacement prior to discharge. 3. Hypotension, resolved ? Suspected secondary to GI bleed and acute blood loss anemia as noted above. Blood pressure stable after patient received several units of packed red blood cells as noted above. Patient stable for transfer out of ICU. Monitor BP. 4. NOEL, improving ? Presumed secondary to hypotension from blood loss as noted above. Likely withsome degree of ATN at this time. Creatinine 1.9 on admission, baseline appears to be around 1.0. Improved to 1.44 on 01/20. Good urine output. Monitor BMP daily. 5. COPD ? Per patient, has home O2 prescribed but had not been wearing it at home. Has consistently required 2 to 3 L nasal cannula since admission. Continue supplemental oxygen as needed. Continue home bronchodilators. 6. Peripheral vascular disease ? Has aspirin, Plavix, Xarelto 2.5 mg twice daily, statin noted on home med list. Unclear what patient is actually taking at home. Holding all AC and antiplatelet agents given GI bleed as above. Continue home statin. We will determine appropriate medication regimen on discharge. DVT prophylaxis: SCDs CODE STATUS: DNR CCA, DO NOT INTUBATE Expected disposition: Home, 2 to 3 days Total clinical time spent by myself addressing the patient's medical issues, reviewing all the data, and collaborating with patient's care team: 35 minutes. Charges/Coding Visit Charges Inpatient E&M: 23609 Subs Hosp L2 01/20/23 1617 <Electronically signed by Otoniel Prasad DO> Cosigner Signature (if applicable): CC: ~ Signed [facility] Work Phone: 1(278) 235-789709-04-2023 Progress note Author Hugh Ferrer [facility] January 20, 2023 6:45am Note Date/Time January 20, 2023 6:06am [facility] Medical Records Department [address] [place] [address] Progress Note - [employer] 01/20/23604 MR#: [id number] Acct: [id number] Name: RYAN VAZ Rep #:[id number] : 1950 72 From: Hugh Ferrer DO PCP: Dr. Dom Chaidez MD Status:AD M IN Location: ICU ICU03-1 Assessment & Plan Assessment/Plan (1) Anemia: QUALIFIERS: Anemia type: iron deficiency Iron deficiency anemia type: chronic blood loss Qualified Code(s): D50.0 - Iron deficiency anemia secondary to blood loss (chronic) PLAN: Plan RECOMMENDATIONS: 1. Continue to monitor blood counts and transfuse if hemoglobin drops below 7 g/dL. 2. Octreotide and PPI therapy per GI. 3. Continue as needed bronchodilator therapy. 4. Wean supplemental oxygen to maintain saturations at or above 90%. 5. Encourage incentive spirometer use and mobilize patient as tolerated. 6. The patient is medically stable for transfer out of the intensive care unit. We will sign off at this time. IMPRESSIONS: 1. Acute blood loss anemia The patient presented to the hospital with abdominal discomfort and generalized weakness in the setting of acute blood loss anemia. The patient was ultimately transfused blood products underwent upper and lower endoscopy. Two bleeding colonic angiodysplastic lesions were noted and were treated with heater probe. The patient responded appropriately to transfusion of blood products. He remains hemodynamically stable. Continue PPI therapy per GI recommendations. 2. Acute kidney injury Improving. Most likely prerenal in the etiology in the setting of tissue hypoperfusion due to #1. Plan to continue to monitor urine output for now. No current indication for renal replacement therapy. 3. History of COPD/peripheral vascular disease/tobacco dependency/hyperlipidemia Complicates care, management, recovery and prognosis. Continue supportive care along with scheduled bronchodilator therapy. This note was generated with [employer] dictation software. It may contain incorrectwords, spelling, and punctuation that were not noted in checking the note beforesigning. Subjective Subjective The patient was seen and examined at the bedside this morning. Events from the last 24 hours have been reviewed. The patient is currently afebrile, hemodynamically stable and maintaining appropriate oxygen saturations on 2 L/minvia nasal cannula. The patient was transfused a total of 5 units of packed red blood cells yesterday. Hemoglobin this morning was noted to be 10.8 g/dL. Upper endoscopy revealed 4 nonbleeding angiodysplastic lesions in the duodenum. Colonoscopy revealed 2 bleeding colonic angiodysplastic lesions which were injected and treated with a heater probe. The patient is resting comfortably this morning without any specific complaints. Objective Data Objective Data The patient's most recent lab work, culture data and imaging studies have all been personally reviewed. Vital Signs: Vital Signs Temp Pulse Resp BP Pulse Ox O2 Del Method O2 Flow Rate 98.9 F 75 18 134/76 H 100 Nasal Cannula 2 01/20/23 04:00 01/20/23 06:00 01/20/23 06:00 01/20/23 06:00 01/20/23 06:00 01/20/23 06:00 01/20/23 05:00 FiO2 30 01/19/23 09:00 Oxygen Flow Rate (L/min) 2 Oxygen Delivery Method Nasal Cannula Weight: 102 lb 4.712 oz Body Mass Index (BMI) 18.1 Intake & Output: Intake and Output for Last 24 Hours 01/18/23 01/19/23 01/20/23 23:59 23:59 23:59 Intake Total 3609.21 / 3609.21 3919.42 / 3919.42 100 / 100 Output Total 200 / 200 1650 / 1650 450 / 450 Balance 3409.21 / 3409.21 2269.42 / 2269.42 -350 / -350 Medical Nutrition Assessment Dietitian: Malnutrition Criteria Met Start: 01/19/23 11:19 Freq: Status: Active Protocol: Document 01/19/23 11:23 SLA (Rec: 01/19/23 11:23 [facility] [id number]) Nutrition Malnutrition Evidence of Malnutrition Exists Yes Malnutrition (severe): Chronic Evidenced By Suboptimal Energy Intake ( Severe),Weight Loss (Severe), Physical Changes (Severe) Clinical Problem Chronic Disease or Condition Related Malnutrition Etiology related to inadequate energy intake Signs/Symptoms as evidenced by 23.2% unintended wt loss x 6 mo, po intake <50% of est nutritional needs x more than one month, obvious fat/muscle loss throughout body and BMI <16 Status Active Problem Recommendation Dietitian Recommendations/Changes As medically able, rec QUENTIN to liberal regular d/t signs and symptoms of malnutrition As medically able, rec chocolate ensure plus high protein 4x/day w/ medpass for increased nutrition if consumed As medically able, rec chocolate magic cup w/ lunch and dinner for increased nutrition if consumed Monitor for s/s of refeeding syndrome Lab / Micro Data Attestation: I reviewed the patient's lab results. 01/20/23 03:45 01/20/23 03:45 Labs: Laboratory Results - last 24 hr 01/18/23 13:20: Crossmatch See Detail 01/19/23 06:17: WBC 4.3 L, RBC 2.07 L, Hgb 6.0 L*, Hct 19.2 L, MCV 92.8, MCH 29.0, MCHC 31.3 L, RDW Std Deviation 52.5 H, RDW Coeff of Barbara 15.7 H, Plt Count 119 L, MPV 10.0, Immature Gran % (Auto) 0.200, Neut % (Auto) 73.8 H, Lymph % (Auto) 14.5 L, [place] % (Auto) 8.3, Eos % (Auto) 3.0, Baso % (Auto) 0.2, Absolute Neuts (auto) 3.2, Absolute Lymphs (auto) 0.63 L, Nucleated RBC % 0, DifferentialComment SCANNED, Diff Path Review September01/19/23 15:15: Hgb 11.4 L, Hct 37.2 L 01/20/23 03:45: WBC 7.6, RBC 3.67 L, Hgb 10.8 L, Hct 33.4 L, MCV 91.0, MCH 29.4,MCHC 32.3, RDW Std Deviation 50.9 H, RDW Coeff of Barbara 15.5 H, Plt Count 179, MPV9.8, Immature Gran % (Auto) 0.300, Neut % (Auto) 78.4 H, Lymph % (Auto) 10.4 L, [place] % (Auto) 8.3, Eos % (Auto) 2.2, Baso % (Auto) 0.4, Absolute Neuts (auto) 5.9, Absolute Lymphs (auto) 0.79 L, Nucleated RBC % 0, Sodium 137, Potassium 3.8, Chloride 110 H, Carbon Dioxide 21.0, Anion Gap 6, BUN 32 H, Creatinine 1.44H, Estim Creat Clear Calc 29.98, Est GFR (MDRD) Af Amer 62, Est GFR (MDRD) Non-Af 51 L, BUN/Creatinine Ratio 22.2 H, Glucose 110 H, Calcium 7.9 L Micro: Microbiology 01/18/23 12:45 Stool Stool Occult Blood (BLESSING) - Final Radiography Diagnostic Testing: Radiology Impression Abdomen/Pelvis CTA 01/19/23 11:01 IMPRESSION: 1. 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 Vascular stent is completely occluded with thrombus. 2. Left external iliac artery: Completely occluded 3. Left internal iliac artery: Completely occluded with severe atherosclerotic calcified plaque. 4. Bifemoral bypass graft is widely patent and normally opacified. The bypass graft terminates below the left common femoral artery/profundus junction. The [place] left common femoral artery is completely occluded. Mild atherosclerotic plaque and luminal stenosis of the right common femoral artery. 5. There is no demonstrated arterial extravasation into the bowel loops on this study that would indicate active GI bleeding. No high density fluid collections are seen within the bowel loops on the current study. A nuclear medicine RBC scan can be obtained if there is continued concern for GI bleeding. Electronically Signed: Giles Frederick MD at 12:54 EDT Reading Location ID and State: [facility] / [place] , Service support , Physical Exam Const alert and no apparent distress General Appearance: cooperative HEENT normocephalic and head/scalp atraumatic Eyes PERRL, EOMs intact bilaterally and conjunctivae normal Neck supple General: trachea midline Resp normal respiratory effort Auscultation: diminished lung sounds Cardio regular rate and regular rhythm GI normal to inspection, nondistended, normoactive bowel sounds Extremity no clubbing, cyanosis or edema Skin no rashes or lesions noted Neuro oriented x3, CN's II-XII intact bilaterally and moves all extremities Psych cooperative and affect normal Charges/Coding Visit Charges Inpatient E&M: 20297 Subs Hosp L2 01/20/23 0645 <Electronically signed by Hugh Ferrer DO> Cosigner Signature (if applicable): CC: ~ Signed [facility] Work Phone: 1(622) 519-405909-04-2023 Consult note Author Hugh Ferrer [facility] January 20, 2023 6:05am Note Date/Time January 19, 2023 7:17am [facility] Medical Records Department [address] [place] [address] Consultation - [employer] 01/19/23 0710 MR#: [id number] Acct: [id number] Name: THAIRYAN TAVAREZ MANUELA Rep #:[id number] : 1950 72 From: Hugh Ferrer DO PCP: Dr. Dom Chaidez MD Status:AD M IN Location: ICU ICU03-1 Assessment & Plan Assessment/Plan (1) Anemia: PLAN: Plan RECOMMENDATIONS: 1. Transfuse 2 additional units of packed red blood cells. 2. Check H&H posttransfusion. 3. Await gastroenterology evaluation and endoscopic evaluation. 4. Continue octreotide and PPI therapy. 5. Continue as needed bronchodilator therapy. 6. Wean supplemental oxygen to maintain saturations at or above 90%. IMPRESSIONS: 1. Acute blood loss anemia The patient presented to the hospital with abdominal discomfort and generalized weakness in the setting of acute blood loss anemia. He has been transfused blood products as ordered. Plan to continue to monitor H&H and transfuse if hemoglobin continues to be below 7 g/dL. The patient remains on octreotide and PPI therapy. Gastroenterology consultation is pending. There are tentative plans for endoscopic evaluation later this morning. At the present time, the patient is hemodynamically stable, without the need for vasopressor support. 2. Acute kidney injury Most likely prerenal in the etiology in the setting of tissue hypoperfusion due to #1. Plan to continue to monitor urine output for now. No current indicationfor renal replacement therapy. 3. History of COPD/peripheral vascular disease/tobacco dependency/hyperlipidemia Complicates care, management, recovery and prognosis. Continue supportive care along with scheduled bronchodilator therapy. This note was generated with [employer] dictation software. It may contain incorrectwords, spelling, and punctuation that were not noted in checking the note beforesigning. HPI Consult Data Date of Consult: 01/20/23 HPI Narrative Reason for Consultation: Blood loss anemia HPI Narrative: The patient is a 72-year-old male, with a history as outlined below, who presented to the emergency department via EMS on January 18 with generalized weakness and abdominal discomfort. The patient has a medical history significant for peripheral vascular disease, COPD and hypertension. On presentation to the emergency department, the patient was noted to be afebrile, but was hypotensive with a blood pressure of 66/49 mmHg. Initial laboratory evaluation revealed no evidence of a leukocytosis. However, hemoglobin was noted to be 5.4 g/dL, down from 9.5 g/dL in November 2022. Chemistry profile was notable for a creatinine of 1.93. Lactate was elevated at 6.7. Urine analysis was noncontributory. The patient underwent type and screen and was transfused 3 units of packed red blood cells. He was subsequently admitted to the medical intensive care unit for further management. At the present time, the patient is hemodynamically stable. He has not requiredvasopressor support. He remains on a continuous PPI infusion along with octreotide. There are tentative plans for endoscopic evaluation by gastroenterology later this morning. The patient denies any ongoing abdominal discomfort or pain. [facility] Medical History Acute respiratory failure with hypoxemia Alcohol abuse Back pain Chronic bullous emphysema COPD (chronic obstructive pulmonary disease) COPD exacerbation Edema Hard of hearing Head injury Heartburn High cholesterol History of stress test HTN (hypertension) Hypoglycemia Incidental pulmonary nodule, less than or equal to 3mm Leg cramps Leg pain Neuropathy Osteoporosis PAOD (peripheral arterial occlusive disease) Passed out Peripheral arterial occlusive disease Shortness of breath Smoker Wears eyeglasses Home Medications diltiazem HCl 180 mg capsule,extended release 24 hr 180 mg PO DAILY BP 06/20/14 [History Last Taken 07/29/22] glucose 4 gram chewable tablet 4 g PO DAILY sugar 01/18/20 [History Last Taken 01/18/20] aspirin 81 mg tablet,delayed release (Adult Low Dose Aspirin) 81 mg PO DAILY SUPPLEMENT 05/02/22 [History Last Taken 07/28/22] cilostazol 50 mg tablet 50 mg PO DAILY BONE 07/15/22 [History Last Taken Unknown] clopidogrel 75 mg tablet 75 mg PO DAILY 90 days #90 tabs 08/03/22 [Rx Last Taken Unknown] guaifenesin 600 mg tablet, extended release 12 hr (Mucus Relief ER) 600 mg PO BID 30 days #60 tabs 08/03/22 [Rx Last Taken Unknown] tamsulosin 0.4 mg capsule 0.4 mg PO DAILY 30 days #30 caps 08/03/22 [Rx Last Taken Unknown] umeclidinium 62.5 mcg-vilanterol 25 mcg/actuation powdr for inhalation (Anoro Ellipta) 1 inh inhalation DAILY #30 days 08/03/22 [Rx Last Taken Unknown] albuterol sulfate 90 mcg/actuation aerosol inhaler 1 inh inhalation 08/20/22 [History Last Taken Unknown] rosuvastatin 20 mg tablet 20 mg PO DAILY 08/20/22 [History Last Taken Unknown] valsartan 320 mg-hydrochlorothiazide 12.5 mg tablet 1 tab PO DAILY 08/20/22 [History Last Taken Unknown] pantoprazole 40 mg tablet,delayed release 40 mg PO DAILY #90 tabs 08/26/22 [Rx Last Taken Unknown] rivaroxaban 2.5 mg tablet (Xarelto) 2.5 mg PO BID #60 tabs 09/03/22 [Rx Last Taken Unknown] rosuvastatin 10 mg tablet mg 01/18/23 [History Last Taken Unknown] Allergy/AdvReac Type Severity Reaction Status Date / Time ciprofloxacin HCl Allergy Severe Nausea Verified 08/26/22 12:51 [From Cipro] Family History Father Hypertension Cancer lung Other Osteoporosis Surgical History Hx of colonoscopy Hx of left cataract extraction Hx of right cataract extraction Status post peripheral artery angioplasty Social History Smoking Status: Current every day smoker tobacco type: cigarettes ROS ROS Narrative 10 systems were reviewed with pertinent positives as noted in the HPI above. Physical Exam Const alert and no apparent distress General Appearance: cooperative HEENT normocephalic and head/scalp atraumatic Eyes PERRL, EOMs intact bilaterally and conjunctivae normal Neck supple General: trachea midline Resp normal respiratory effort Auscultation: diminished lung sounds Cardio regular rate and regular rhythm GI normal to inspection, nondistended, normoactive bowel sounds Extremity no clubbing, cyanosis or edema Skin no rashes or lesions noted Neuro oriented x3, CN's II-XII intact bilaterally and moves all extremities Psych cooperative and affect normal Lab / Micro Data 01/20/23 03:45 01/20/23 03:45 Labs: Laboratory Results - last 24 hr 01/18/23 11:50: WBC 8.9, RBC 1.86 L, Hgb 5.4 L*, Hct 18.3 L, MCV 98.4 H, MCH 29.0, MCHC 29.5 L, RDW Std Deviation 54.1 H, RDW Coeff of Barbara 15.7 H, Plt Count 316, MPV 10.3, Immature Gran % (Auto) 0.400, Neut % (Auto) 70.0, Lymph % (Auto) 20.9, [place] % (Auto) 8.1, Eos % (Auto) 0.2, Baso % (Auto) 0.4, Absolute Neuts (auto) 6.2, Absolute Lymphs (auto) 1.86, Nucleated RBC % 0, Differential CommentSCANNED, Diff Path Review May foll, Hypochromasia 1+, Anisocytosis 2+, Microcytosis 1+, Macrocytosis 1+, PT 15.8 H, INR 1.3, APTT 27.4, Sodium 137, Potassium 4.5, Chloride 103, Carbon Dioxide 21.0, Anion Gap 13, BUN 68 H, Creatinine 1.93 H, Estim Creat Clear Calc 9.14, Est GFR (MDRD) Af Amer 44 L, EstGFR (MDRD) Non-Af 36 L, BUN/Creatinine Ratio 35.2 H, Glucose 131 H, Calcium 9.3,Magnesium 2.1, Total Bilirubin 0.30, Direct Bilirubin 0.15, AST 65 H, ALT 50, Alkaline Phosphatase 64, Troponin I High Sens 15, Total Protein 6.0 L, Albumin 2.7 L, Globulin 3.3 01/18/23 11:56: Lactic Acid 6.7 H* 01/18/23 12:40: Blood Type Cancelled, Antibody Screen Cancelled, Crossmatch See Detail 01/18/23 13:20: Blood Type O POSITIVE, Antibody Screen NEGATIVE, Crossmatch See Detail 01/18/23 13:20: Crossmatch See Detail 01/18/23 15:20: WBC 7.0, RBC 1.46 L, Hgb 4.1 L*, Hct 14.4 L, MCV 98.6 H, MCH 28.1, MCHC 28.5 L, RDW Std Deviation 53.6 H, RDW Coeff of Barbara 15.6 H, Plt Count 230, MPV 10.3, Differential Comment SEE COMMENTS, Retic Count 4.88 H, Immature Retic Fraction 30.20 H, Retic Hgb Equivalent 28.7 L, Iron 15 L, TIBC 290, Iron Saturation 5.2 L, Ferritin 54, Lipase 37, Folate 9.60 01/18/23 16:23: Lactic Acid 1.5 01/18/23 21:15: Urine Color Yellow, Urine Clarity Sl. Cloudy, Urine pH 5.0, Ur Specific [place] 1.020, Urine Protein Negative, Urine Glucose (UA) Normal, UrineKetones 5 H, Urine Occult Blood 10 H, Urine Nitrite Negative, Urine Bilirubin Negative, Urine Urobilinogen Normal, Ur Leukocyte Esterase 100 H, Urine RBC 0 SEEN, Urine WBC 0-5 SEEN, Ur Squamous Epith Cells 0 SEEN, Urine Bacteria 0 SEEN,Hyaline Casts 0-5 SEEN, Urine Mucus 0 SEEN 01/19/23 02:00: WBC 5.7, RBC 2.83 L, Hgb 8.1 L, Hct 26.3 L, MCV 92.9 D, MCH 28.6, MCHC 30.8 L D, RDW Std Deviation 52.1 H, RDW Coeff of Barbara 15.7 H, Plt Count 163, MPV 10.1, Sodium 136, Potassium 4.3, Chloride 109 H, Carbon Dioxide 21.0, Anion Gap 6, BUN 56 H, Creatinine 1.66 H, Estim Creat Clear Calc 22.46, Est GFR (MDRD) Af Amer 52 L, Est GFR (MDRD) Non-Af 43 L, BUN/Creatinine Ratio 33.7 H, Glucose 109 H, Calcium 7.9 L, Magnesium 1.7, Total Bilirubin 0.60, AST 123 H, ALT 120 H, Alkaline Phosphatase 52, Total Protein 4.9 L, Albumin 2.3 L, Globulin 2.6, Albumin/Globulin Ratio 0.9, TSH 0.82 01/19/23 06:17: WBC 4.3 L, RBC 2.07 L, Hgb 6.0 L*, Hct 19.2 L, MCV 92.8, MCH 29.0, MCHC 31.3 L, RDW Std Deviation 52.5 H, RDW Coeff of Barbara 15.7 H, Plt Count 119 L, MPV 10.0, Immature Gran % (Auto) 0.200, Neut % (Auto) 73.8 H, Lymph % (Auto) 14.5 L, [place] % (Auto) 8.3, Eos % (Auto) 3.0, Baso % (Auto) 0.2, Absolute Neuts (auto) 3.2, Absolute Lymphs (auto) 0.63 L, Nucleated RBC % 0 Micro: Microbiology 01/18/23 12:45 Stool Stool Occult Blood (BLESSING) - Final Radiology Impression Chest X-Ray 01/18/23 12:09 IMPRESSION: Degenerative changes, as described above. No demonstrated acute cardiopulmonary process. Electronically Signed: Crow Mcgregor MD at 12:43 EDT Reading Location ID and State: [address] [place] [address] , Service support , Charges/Coding Visit Charges Inpatient E&M: 31304 Init Hosp L3 01/20/23 0605 <Electronically signed by Hugh Ferrer DO> Cosigner Signature (if applicable): CC: ROWENA Cisneros; Dr. Farnco Collins MD; Dr. Hugh Ferrer DO; Dr. Onesimo Chaidez MD; Dr. Huy Gonzalez MD; Dr. Nikolas Bernstein MD~ Signed [facility] Work Phone: 1(212) 647-730909-03-2023 Consult note Author Jorge Luis Friend [facility] January 19, 2023 11:49am Note Date/Time January 19, 2023 11:43am [facility] Medical Records Department [address] [place] [address] Consultation - GI 01/18/23 2300 MR#: [id number] Acct: [id number] Name: RYAN VAZ Rep #:[id number] : 1950 72 From: Jorge Luis Friend DO PCP: Dr. Dom Chaidez MD Status:AD M IN Location: ICU ICU03-1 HPI Consult Data Date of Consult: 01/18/23 HPI Narrative Reason for Consultation: Anemia HPI Narrative: RYAN VAZ, is a 72 M who presents with worsening shortness of breath. His hemoglobin was 13.4 on 07/18/22, then 9.4 on 07/29/22. He was hospitalized 07/29/22-08/03/22 following bilateral lower extremity vascular surgery for PAD. He is on aspirin 81 mg and clopidogrel. After surgery hemoglobin decreased to 7.4, he wasgiven 1 unit PRBC, hgb was 8.5 at discharge. Nursing reported hematemesis. He was started on pantoprazole and sucralfate. Hgb 10.9 on 08/19/22. Hemoglobin noted to be 5.4 in the ED with a lactic acid of 6.7, patient was hypotensive with a BP of 66/49 on initial presentation. Patient had dark stool on exam in the ED but occult blood reported as negative. Hospitalist consulted for admission for his hypotension, anemia, elevated lactic acid. [facility] Medical History Acute respiratory failure with hypoxemia Alcohol abuse Back pain Chronic bullous emphysema COPD (chronic obstructive pulmonary disease) COPD exacerbation Edema Hard of hearing Head injury Heartburn High cholesterol History of stress test HTN (hypertension) Hypoglycemia Incidental pulmonary nodule, less than or equal to 3mm Leg cramps Leg pain Neuropathy Osteoporosis PAOD (peripheral arterial occlusive disease) Passed out Peripheral arterial occlusive disease Shortness of breath Smoker Wears eyeglasses Home Medications diltiazem HCl 180 mg capsule,extended release 24 hr 180 mg PO DAILY BP 06/20/14 [History Last Taken 07/29/22] glucose 4 gram chewable tablet 4 g PO DAILY sugar 01/18/20 [History Last Taken 09/01/20] aspirin 81 mg tablet,delayed release (Adult Low Dose Aspirin) 81 mg PO DAILY SUPPLEMENT 05/02/22 [History Last Taken 07/28/22] cilostazol 50 mg tablet 50 mg PO DAILY BONE 07/15/22 [History Last Taken Unknown] clopidogrel 75 mg tablet 75 mg PO DAILY 90 days #90 tabs 08/03/22 [Rx Last Taken Unknown] guaifenesin 600 mg tablet, extended release 12 hr (Mucus Relief ER) 600 mg PO BID 30 days #60 tabs 08/03/22 [Rx Last Taken Unknown] tamsulosin 0.4 mg capsule 0.4 mg PO DAILY 30 days #30 caps 08/03/22 [Rx Last Taken Unknown] umeclidinium 62.5 mcg-vilanterol 25 mcg/actuation powdr for inhalation (Anoro Ellipta) 1 inh inhalation DAILY #30 days 08/03/22 [Rx Last Taken Unknown] albuterol sulfate 90 mcg/actuation aerosol inhaler 1 inh inhalation 08/20/22 [History Last Taken Unknown] rosuvastatin 20 mg tablet 20 mg PO DAILY 08/20/22 [History Last Taken Unknown] valsartan 320 mg-hydrochlorothiazide 12.5 mg tablet 1 tab PO DAILY 08/20/22 [History Last Taken Unknown] pantoprazole 40 mg tablet,delayed release 40 mg PO DAILY #90 tabs 08/26/22 [Rx Last Taken Unknown] rivaroxaban 2.5 mg tablet (Xarelto) 2.5 mg PO BID #60 tabs 09/03/22 [Rx Last Taken Unknown] rosuvastatin 10 mg tablet mg 01/18/23 [History Last Taken Unknown] Allergy/AdvReac Type Severity Reaction Status Date / Time ciprofloxacin HCl Allergy Severe Nausea Verified 08/26/22 12:51 [From Cipro] Family History Father Hypertension Cancer lung Other Osteoporosis Surgical History Hx of colonoscopy Hx of left cataract extraction Hx of right cataract extraction Status post peripheral artery angioplasty Social History Smoking Status: Current every day smoker tobacco type: cigarettes ROS ROS Narrative 10 systems were reviewed with pertinent positives as noted in the HPI above. Physical Exam Narrative General: Alert, oriented, no acute distress HEENT: Atraumatic, normocephalic Eyes: Anicteric, normal conjunctiva, extraocular movements grossly intact Neck: Supple Respiratory: No overt wheezes or rhonchi, normal respiratory effort Cardiovascular: Regular rate GI: Soft, very thin, no tenderness Extremities: No edema Musculoskeletal: Moving all extremities Neuro: No overt focal neurological deficits Skin: Scattered bruising Psych: Cooperative Medical Records Data Medical Nutrition Assessment Dietitian: Malnutrition Criteria Met Start: 01/19/23 11:19 Freq: Status: Active Protocol: Document 01/19/23 11:23 [facility] (Rec: 01/19/23 11:23 [facility] [id number]) Nutrition Malnutrition Evidence of Malnutrition Exists Yes Malnutrition (severe): Chronic Evidenced By Suboptimal Energy Intake ( Severe),Weight Loss (Severe), Physical Changes (Severe) Clinical Problem Chronic Disease or Condition Related Malnutrition Etiology related to inadequate energy intake Signs/Symptoms as evidenced by 23.2% unintended wt loss x 6 mo, po intake <50% of est nutritional needs x more than one month, obvious fat/muscle loss throughout body and BMI <16 Status Active Problem Recommendation Dietitian Recommendations/Changes As medically able, rec QUENTIN to liberal regular d/t signs and symptoms of malnutrition As medically able, rec chocolate ensure plus high protein 4x/day w/ medpass for increased nutrition if consumed As medically able, rec chocolate magic cup w/ lunch and dinner for increased nutrition if consumed Monitor for s/s of refeeding syndrome Lab / Micro Data 01/19/23 06:17 01/19/23 02:00 Labs: Laboratory Results - last 24 hr 01/18/23 11:50: WBC 8.9, RBC 1.86 L, Hgb 5.4 L*, Hct 18.3 L, MCV 98.4 H, MCH 29.0, MCHC 29.5 L, RDW Std Deviation 54.1 H, RDW Coeff of Barbara 15.7 H, Plt Count 316, MPV 10.3, Immature Gran % (Auto) 0.400, Neut % (Auto) 70.0, Lymph % (Auto) 20.9, [place] % (Auto) 8.1, Eos % (Auto) 0.2, Baso % (Auto) 0.4, Absolute Neuts (auto) 6.2, Absolute Lymphs (auto) 1.86, Nucleated RBC % 0, Differential CommentSCANNED, Diff Path Review September, Hypochromasia 1+, Anisocytosis 2+, Microcytosis 1+, Macrocytosis 1+, PT 15.8 H, INR 1.3, APTT 27.4, Sodium 137, Potassium 4.5, Chloride 103, Carbon Dioxide 21.0, Anion Gap 13, BUN 68 H, Creatinine 1.93 H, Estim Creat Clear Calc 9.14, Est GFR (MDRD) Af Amer 44 L, EstGFR (MDRD) Non-Af 36 L, BUN/Creatinine Ratio 35.2 H, Glucose 131 H, Calcium 9.3,Magnesium 2.1, Total Bilirubin 0.30, Direct Bilirubin 0.15, AST 65 H, ALT 50, Alkaline Phosphatase 64, Troponin I High Sens 15, Total Protein 6.0 L, Albumin 2.7 L, Globulin 3.3 01/18/23 11:56: Lactic Acid 6.7 H* 01/18/23 12:40: Blood Type Cancelled, Antibody Screen Cancelled, Crossmatch See Detail 01/18/23 13:20: Blood Type O POSITIVE, Antibody Screen NEGATIVE, Crossmatch See Detail 01/18/23 13:20: Crossmatch See Detail 01/18/23 15:20: WBC 7.0, RBC 1.46 L, Hgb 4.1 L*, Hct 14.4 L, MCV 98.6 H, MCH 28.1, MCHC 28.5 L, RDW Std Deviation 53.6 H, RDW Coeff of Barbara 15.6 H, Plt Count 230, MPV 10.3, Differential Comment SEE COMMENTS, Retic Count 4.88 H, Immature Retic Fraction 30.20 H, Retic Hgb Equivalent 28.7 L, Iron 15 L, TIBC 290, Iron Saturation 5.2 L, Ferritin 54, Lipase 37, Folate 9.60 01/18/23 16:23: Lactic Acid 1.5 01/18/23 21:15: Urine Color Yellow, Urine Clarity Sl. Cloudy, Urine pH 5.0, Ur Specific [place] 1.020, Urine Protein Negative, Urine Glucose (UA) Normal, UrineKetones 5 H, Urine Occult Blood 10 H, Urine Nitrite Negative, Urine Bilirubin Negative, Urine Urobilinogen Normal, Ur Leukocyte Esterase 100 H, Urine RBC 0 SEEN, Urine WBC 0-5 SEEN, Ur Squamous Epith Cells 0 SEEN, Urine Bacteria 0 SEEN,Hyaline Casts 0-5 SEEN, Urine Mucus 0 SEEN 01/19/23 02:00: WBC 5.7, RBC 2.83 L, Hgb 8.1 L, Hct 26.3 L, MCV 92.9 D, MCH 28.6, MCHC 30.8 L D, RDW Std Deviation 52.1 H, RDW Coeff of Barbara 15.7 H, Plt Count 163, MPV 10.1, Sodium 136, Potassium 4.3, Chloride 109 H, Carbon Dioxide 21.0, Anion Gap 6, BUN 56 H, Creatinine 1.66 H, Estim Creat Clear Calc 22.46, Est GFR (MDRD) Af Amer 52 L, Est GFR (MDRD) Non-Af 43 L, BUN/Creatinine Ratio 33.7 H, Glucose 109 H, Calcium 7.9 L, Magnesium 1.7, Total Bilirubin 0.60, AST 123 H, ALT 120 H, Alkaline Phosphatase 52, Total Protein 4.9 L, Albumin 2.3 L, Globulin 2.6, Albumin/Globulin Ratio 0.9, TSH 0.82 01/19/23 06:17: WBC 4.3 L, RBC 2.07 L, Hgb 6.0 L*, Hct 19.2 L, MCV 92.8, MCH 29.0, MCHC 31.3 L, RDW Std Deviation 52.5 H, RDW Coeff of Barbara 15.7 H, Plt Count 119 L, MPV 10.0, Immature Gran % (Auto) 0.200, Neut % (Auto) 73.8 H, Lymph % (Auto) 14.5 L, [place] % (Auto) 8.3, Eos % (Auto) 3.0, Baso % (Auto) 0.2, Absolute Neuts (auto) 3.2, Absolute Lymphs (auto) 0.63 L, Nucleated RBC % 0, DifferentialComment SCANNED, Diff Path Review September Micro: Microbiology 01/18/23 12:45 Stool Stool Occult Blood (BLESSING) - Final Radiology Impression Chest X-Ray 01/18/23 12:09 IMPRESSION: Degenerative changes, as described above. No demonstrated acute cardiopulmonary process. Electronically Signed: Crow Mcgregor MD at 12:43 EDT Reading Location ID and State: [address] [place] [address] , Service support , Assessment & Plan Assessment/Plan (1) Anemia: QUALIFIERS: Anemia type: iron deficiency Iron deficiency anemia type: chronic blood loss Qualified Code(s): D50.0 - Iron deficiency anemia secondary to blood loss (chronic) (2) Hypotension: QUALIFIERS: Hypotension type: idiopathic hypotension Qualified Code(s): I95.0 - Idiopathic hypotension (3) Acidosis, lactic: PLAN: Plan 71 yr old male with anemia; he had bilat LE vascular surgery, had hematemesis while hospitalized, hgb decreased to low of 7.4, received 1 unit PRBC, he is on PPI now, he is on ASA and plavix. No further evidence of GIB. Hgb went up to 10.9. Currently his hemoglobin is 5.4. -Anemia- I suspect CATA from Chronic blood loss anemia. I suspect it is an upper GI bleed because of his COPD, PAD and the use of antiplatelets and anticoagulants. We will perform an upper endoscopy and possibly a colonoscopy. -Continue Octreotide and PPI Drip -Monitor h/h -Keep hematocrit > 35 Charges/Coding Visit Charges Inpatient E&M: 68513 [facility] Hosp 01/19/23 1149 <Electronically signed by Jorge Luis Williamson DO> Cosigner Signature (if applicable): CC: ROWENA Cisneros; Dr. Franco Collins MD; Dr. Hugh Ferrer DO; Dr. Onesimo Chaidez MD; Dr. Huy Gonzalez MD; Dr. Nikolas Bernstein MD~ Signed [facility] Work Phone: 1(666) 385-566709-03-2023 Procedure [facility] 01-19-2023 [facility]09-03-2023 Procedure note [facility]09-03-2023 Procedure [facility] 01-19-2023 Progress note Author Lizzy Meza [facility] January 19, 2023 8:52am Note Date/Time January 19, 2023 8:52am [facility] Medical Records Department [address] [place] [address] Progress Note - Hospitalist 01/19/23 0848 MR#: [id number] Acct: [id number] Name: RYAN VAZ Rep #:[id number] : 1950 72 From: Lizzy Meza MD PCP: Dr. Dom Chaidez MD Status:AD M IN Location: ICU ICU- Reason for Visit Reason for Visit: Diagnoses Anemia, unspecified (01/18/23) Hypotension, unspecified (01/18/23) Subjective Subjective Patient feeling much better than yesterday, feels he might of had a dark bowel movement last night but no bright red blood that he is passing, breathing baseline Objective Data Objective Data Vital Signs: Vital Signs Temp Pulse Resp BP Pulse Ox O2 Del Method O2 Flow Rate 98.4 F 82 15 126/64 H 100 Nasal Cannula 2 01/19/23 08:00 01/19/23 08:00 01/19/23 08:00 01/19/23 08:00 01/19/23 08:00 01/19/23 08:00 01/19/23 08:00 Oxygen Flow Rate (L/min) 2 Oxygen Delivery Method Nasal Cannula Weight: 40.058 kg Body Mass Index (BMI) 15.6 Intake & Output: Intake and Output for Last 24 Hours 01/17/23 01/18/23 01/19/23 23:59 23:59 23:59 Intake Total 3609.21 / 3609.21 877.0 / 877.0 Output Total 200 / 200 350 / 350 Balance 3409.21 / 3409.21 527.0 / 527.0 Lab / Micro Data 01/19/23 06:17 01/19/23 02:00 Labs: Laboratory Results - last 24 hr 01/18/23 11:50: WBC 8.9, RBC 1.86 L, Hgb 5.4 L*, Hct 18.3 L, MCV 98.4 H, MCH 29.0, MCHC 29.5 L, RDW Std Deviation 54.1 H, RDW Coeff of Barbara 15.7 H, Plt Count 316, MPV 10.3, Immature Gran % (Auto) 0.400, Neut % (Auto) 70.0, Lymph % (Auto) 20.9, [place] % (Auto) 8.1, Eos % (Auto) 0.2, Baso % (Auto) 0.4, Absolute Neuts (auto) 6.2, Absolute Lymphs (auto) 1.86, Nucleated RBC % 0, Differential CommentSCANNED, Diff Path Review September, Hypochromasia 1+, Anisocytosis 2+, Microcytosis 1+, Macrocytosis 1+, PT 15.8 H, INR 1.3, APTT 27.4, Sodium 137, Potassium 4.5, Chloride 103, Carbon Dioxide 21.0, Anion Gap 13, BUN 68 H, Creatinine 1.93 H, Estim Creat Clear Calc 9.14, Est GFR (MDRD) Af Amer 44 L, EstGFR (MDRD) Non-Af 36 L, BUN/Creatinine Ratio 35.2 H, Glucose 131 H, Calcium 9.3,Magnesium 2.1, Total Bilirubin 0.30, Direct Bilirubin 0.15, AST 65 H, ALT 50, Alkaline Phosphatase 64, Troponin I High Sens 15, Total Protein 6.0 L, Albumin 2.7 L, Globulin 3.3 01/18/23 11:56: Lactic Acid 6.7 H* 01/18/23 12:40: Blood Type Cancelled, Antibody Screen Cancelled, Crossmatch See Detail 01/18/23 13:20: Blood Type O POSITIVE, Antibody Screen NEGATIVE, Crossmatch See Detail 01/18/23 13:20: Crossmatch See Detail 01/18/23 15:20: WBC 7.0, RBC 1.46 L, Hgb 4.1 L*, Hct 14.4 L, MCV 98.6 H, MCH 28.1, MCHC 28.5 L, RDW Std Deviation 53.6 H, RDW Coeff of Barbara 15.6 H, Plt Count 230, MPV 10.3, Differential Comment SEE COMMENTS, Retic Count 4.88 H, Immature Retic Fraction 30.20 H, Retic Hgb Equivalent 28.7 L, Iron 15 L, TIBC 290, Iron Saturation 5.2 L, Ferritin 54, Lipase 37, Folate 9.60 01/18/23 16:23: Lactic Acid 1.5 01/18/23 21:15: Urine Color Yellow, Urine Clarity Sl. Cloudy, Urine pH 5.0, Ur Specific [place] 1.020, Urine Protein Negative, Urine Glucose (UA) Normal, UrineKetones 5 H, Urine Occult Blood 10 H, Urine Nitrite Negative, Urine Bilirubin Negative, Urine Urobilinogen Normal, Ur Leukocyte Esterase 100 H, Urine RBC 0 SEEN, Urine WBC 0-5 SEEN, Ur Squamous Epith Cells 0 SEEN, Urine Bacteria 0 SEEN,Hyaline Casts 0-5 SEEN, Urine Mucus 0 SEEN 01/19/23 02:00: WBC 5.7, RBC 2.83 L, Hgb 8.1 L, Hct 26.3 L, MCV 92.9 D, MCH 28.6, MCHC 30.8 L D, RDW Std Deviation 52.1 H, RDW Coeff of Barbara 15.7 H, Plt Count 163, MPV 10.1, Sodium 136, Potassium 4.3, Chloride 109 H, Carbon Dioxide 21.0, Anion Gap 6, BUN 56 H, Creatinine 1.66 H, Estim Creat Clear Calc 22.46, Est GFR (MDRD) Af Amer 52 L, Est GFR (MDRD) Non-Af 43 L, BUN/Creatinine Ratio 33.7 H, Glucose 109 H, Calcium 7.9 L, Magnesium 1.7, Total Bilirubin 0.60, AST 123 H, ALT 120 H, Alkaline Phosphatase 52, Total Protein 4.9 L, Albumin 2.3 L, Globulin 2.6, Albumin/Globulin Ratio 0.9, TSH 0.82 01/19/23 06:17: WBC 4.3 L, RBC 2.07 L, Hgb 6.0 L*, Hct 19.2 L, MCV 92.8, MCH 29.0, MCHC 31.3 L, RDW Std Deviation 52.5 H, RDW Coeff of Barbara 15.7 H, Plt Count 119 L, MPV 10.0, Immature Gran % (Auto) 0.200, Neut % (Auto) 73.8 H, Lymph % (Auto) 14.5 L, [place] % (Auto) 8.3, Eos % (Auto) 3.0, Baso % (Auto) 0.2, Absolute Neuts (auto) 3.2, Absolute Lymphs (auto) 0.63 L, Nucleated RBC % 0, DifferentialComment SCANNED, Diff Path Review September Micro: Microbiology 01/18/23 12:45 Stool Stool Occult Blood (BLESSING) - Final Radiography Diagnostic Testing: Radiology Impression Chest X-Ray 01/18/23 12:09 IMPRESSION: Degenerative changes, as described above. No demonstrated acute cardiopulmonary process. Electronically Signed: Crow Mcgregor MD at 12:43 EDT , Physical Exam Narrative General: Alert, oriented, no acute distress HEENT: Atraumatic, normocephalic Eyes: Anicteric, normal conjunctiva, extraocular movements grossly intact Neck: Supple Respiratory: No overt wheezes or rhonchi, normal respiratory effort Cardiovascular: Regular rate GI: Soft, very thin, no tenderness Extremities: No edema Musculoskeletal: Moving all extremities Neuro: No overt focal neurological deficits Skin: Scattered bruising Psych: Cooperative Assessment & Plan Assessment/Plan (1) Hypotension: (2) Anemia: PLAN: Plan #Acute on chronic anemia -Hemoglobin 5.4 in ED with last hemoglobin 11/27/2022 9.5 -Given dark stools with epigastric burning with BUN of 68 and progressive weakness and patient not taking PPI suspect upper GI bleed -Occult stool in ED negative however still feel this is the most likely source -3 units of blood ordered -Cycling H&H -Discussed with GI and GI consulted -Octreotide and PPI drips ordered per recommendation -Patient presently n.p.o. -Will get iron studies and reticulocyte count -No evidence to suggest hemolysis and no other complaints to point to other source of blood loss -01/19: Hemoglobin down trended to 4.1 yesterday before blood was given, patient given 3 units of blood yesterday with improvement 8.1, 2 more units to be given today due to hemoglobin down to 6, pending endoscopy and GI consult, continue octreotide and pantoprazole #Hypotension?resolved -Likely secondary to intravascular volume depletion whether from dehydration or blood loss are both -Continue IV fluids -We will transfuse -Patient to go to ICU -01/19: Patient still anemic but BP and clinical status significantly improved with blood and fluids #Lactic acidemia?resolved -Likely secondary to poor perfusion especially in light of his peripheral vascular disease -Lactic acid 6.7, patient receiving fluids, trend -No signs or symptoms of underlying infection and do not feel patient needs empiric antibiotic coverage at this time -Patient's anion gap 13 and bicarb within normal limits, suspect mixed acid-basepicture -01/19: Resolved with fluids #Elevated BUN and creatinine -Suspect BUN grossly elevated disproportionate to creatinine based on previous values secondary to upper GI bleed -Creatinine is elevated however at 1.93 with most recent creatinine 11/27/2022 being 1.51, prior to that baseline seemed closer to 1 -Suspect prerenal/due to decreased perfusion, continue fluids, patient for packed red blood cells -01/19: Improving, continue current management #COPD -Reportedly supposed to be on home O2 but not wearing it -Having difficult time getting good pleth, will place on O2 -Nebs #Peripheral vascular disease -Statin -Has not been taking home medications per report, pending results and hemoglobinwill need risk-benefit discussions moving forward #Tobacco use -Advise cessation -Patient has been cutting down significantly and only smokes around 2 cigarettesa day with plans to gradually quit this month, encouragement provided, patient does not feel he needs a nicotine patch #DVT ppx: SCDs Lizzy Meza MD Time spent in the patient's overall evaluation,decision-making process, review of diagnostic data, adjustment of management, discussion with other providers, nursing nursing and ancillary staff involved in patient's care documentation, 40minutes Charges/Coding Visit Charges Inpatient E&M: 28588 Subs Hosp L2 01/19/23 0852 <Electronically signed by Lizzy Meza MD> Cosigner Signature (if applicable): CC: ~ Signed [facility] Work Phone: 1(617) 716-523409-03-2023 Discharge summary Author Kimberly Cowart [facility] January 18, 2023 10:50pm Note Date/Time January 18, 2023 11:45am [facility] Medical Records Department [address] [place] [address] Emergency Department Summary 01/18/23 MR#: [id number] Acct: [id number] Name: RYAN VAZ Rep #:[id number] : 1950 72 From: Kimberly Cowart MD PCP: Dr. Dom Chaidez MD Status:AD M IN Location: ICU ICU03-1 HPI History of Present Illness Chief Complaint: Weakness Informant: patient Narrative Narrative: Patient presents via EMS secondary to weakness. He states he is not felt well for the past month but was much worse today. He states he is been eating and drinking okay. His doctor did give him some medicine for his stomach but he does not know what it is. He picked up the prescription but has not yet startedit. He has a mild chronic cough that is unchanged from baseline. No fever or chills. He has had no falls. He states his blood pressure has been running lowwith systolic in the 90s recently. He does not believe he took his medication this morning but does not remember for sure. Our records indicate patient is onXarelto however patient states he does not think he is on that medication any longer. He does not know why he was on it initially [facility] Medical History Acute respiratory failure with hypoxemia Alcohol abuse Back pain Chronic bullous emphysema COPD (chronic obstructive pulmonary disease) COPD exacerbation Edema Hard of hearing Head injury Heartburn High cholesterol History of stress test HTN (hypertension) Hypoglycemia Incidental pulmonary nodule, less than or equal to 3mm Leg cramps Leg pain Neuropathy Osteoporosis PAOD (peripheral arterial occlusive disease) Passed out Peripheral arterial occlusive disease Shortness of breath Smoker Wears eyeglasses Home Medications diltiazem HCl 180 mg capsule,extended release 24 hr 180 mg PO DAILY BP 06/20/14 [History Last Taken 07/29/22] glucose 4 gram chewable tablet 4 g PO DAILY sugar 01/18/20 [History Last Taken 01/18/20] aspirin 81 mg tablet,delayed release (Adult Low Dose Aspirin) 81 mg PO DAILY SUPPLEMENT 05/02/22 [History Last Taken 07/28/22] cilostazol 50 mg tablet 50 mg PO DAILY BONE 07/15/22 [History Last Taken Unknown] clopidogrel 75 mg tablet 75 mg PO DAILY 90 days #90 tabs 08/03/22 [Rx Last Taken Unknown] guaifenesin 600 mg tablet, extended release 12 hr (Mucus Relief ER) 600 mg PO BID 30 days #60 tabs 08/03/22 [Rx Last Taken Unknown] tamsulosin 0.4 mg capsule 0.4 mg PO DAILY 30 days #30 caps 08/03/22 [Rx Last Taken Unknown] umeclidinium 62.5 mcg-vilanterol 25 mcg/actuation powdr for inhalation (Anoro Ellipta) 1 inh inhalation DAILY #30 days 08/03/22 [Rx Last Taken Unknown] albuterol sulfate 90 mcg/actuation aerosol inhaler 1 inh inhalation 08/20/22 [History Last Taken Unknown] rosuvastatin 20 mg tablet 20 mg PO DAILY 08/20/22 [History Last Taken Unknown] valsartan 320 mg-hydrochlorothiazide 12.5 mg tablet 1 tab PO DAILY 08/20/22 [History Last Taken Unknown] pantoprazole 40 mg tablet,delayed release 40 mg PO DAILY #90 tabs 08/26/22 [Rx Last Taken Unknown] rivaroxaban 2.5 mg tablet (Xarelto) 2.5 mg PO BID #60 tabs 09/03/22 [Rx Last Taken Unknown] rosuvastatin 10 mg tablet mg 01/18/23 [History Last Taken Unknown] Allergy/AdvReac Type Severity Reaction Status Date / Time ciprofloxacin HCl Allergy Severe Nausea Verified 08/26/22 12:51 [From Cipro] Family History Father Hypertension Cancer lung Other Osteoporosis Surgical History Hx of colonoscopy Hx of left cataract extraction Hx of right cataract extraction Status post peripheral artery angioplasty Social History Smoking Status: Current every day smoker tobacco type: cigarettes ROS ROS ED Constitutional Constitutional ED: Denies chills or fever(s) Eyes Eyes: Denies change in vision or discharge from eye(s) ENT ENT ED: Denies discharge from eye(s), rhinorrhea or sore throat Cardiovascular Cardiovascular: Denies chest pain or palpitations Respiratory/Chest Respiratory/Chest: Reports cough and dyspnea Gastrointestinal Gastrointestinal: Reports abdominal pain; Denies diarrhea, nausea or vomiting Genitourinary Genitourinary ED: Denies dysuria Musculoskeletal Musculoskeletal: Denies back pain or extremity pain Integumentary Denies Abrasions or rash Neurologic Neurologic: Reports weakness; Denies headache(s) Psychiatric Psychiatric: Denies anxiety or depression Allergic/Immunologic Allergic/Immunologic ED: Denies lip swelling or urticaria EXAM Physical Exam Const Vital Signs: 01/18/23 11:32 01/18/23 11:48 Temperature 97.2 F L Temperature Source Temporal Pulse Rate 108 H Respiratory Rate 20 H Respiratory Effort Short of Breath Respiratory Pattern Normal Blood Pressure 66/49 L Blood Pressure Mean 54 Pulse Ox 96 Oxygen Delivery Method Room Air Positive cachectic General Appearance ED: cachectic Nutritional Appearance: cachectic HEENT Reports normocephalic and head/scalp atraumatic Eyes PERRL and EOMs intact bilaterally Neck supple Chest Wall inspection of chest normal and palpation of chest normal Resp normal respiratory effort Resp Narrative: Diminished breath sounds bilaterally. Cardio regular rate and regular rhythm GI GI Narrative: Abdomen soft with no focal tenderness. Rectal examination performed. No hemorrhoids or masses noted. Dark stool notedon gloved finger. 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 IV line established and IV fluid boluses initiated for his hypotension. EKG obtained to evaluate for cardiac arrhythmia/ischemia. Labwork obtained to evaluate for leukocytosis, anemia, andelectrolyte derangement. Chest x-ray obtained to evaluate for acute lung pathology, cardiac size, or mediastinal abnormality. Urinalysis obtained to evaluate for infection/hematuria. History & Record Review Discussion w/independent historian: EMS personnel, Patient and Family Additional record(s) reviewed:: Prior ED visit and Prior labs Lab Data Attestation: I reviewed the patient's lab results. Labs: Laboratory Results - last 24 hr 01/18/23 01/18/23 01/18/23 11:50 11:56 12:40 WBC 8.9 RBC 1.86 L Hgb 5.4 L* Hct 18.3 L MCV 98.4 H MCH 29.0 MCHC 29.5 L RDW Std Deviation 54.1 H RDW Coeff of Barbara 15.7 H Plt Count 316 MPV 10.3 Immature Gran % (Auto) 0.400 Neut % (Auto) 70.0 Lymph % (Auto) 20.9 [place] % (Auto) 8.1 Eos % (Auto) 0.2 Baso % (Auto) 0.4 Absolute Neuts (auto) 6.2 Absolute Lymphs (auto) 1.86 Nucleated RBC % 0 Differential Comment SCANNED Diff Path Review May foll Hypochromasia 1+ Anisocytosis 2+ Microcytosis 1+ Macrocytosis 1+ Sodium 137 Potassium 4.5 Chloride 103 Carbon Dioxide 21.0 Anion Gap 13 BUN 68 H Creatinine 1.93 H Estim Creat Clear Calc 9.14 Est GFR (MDRD) Af Amer 44 L Est GFR (MDRD) Non-Af 36 L BUN/Creatinine Ratio 35.2 H Glucose 131 H Lactic Acid 6.7 H* Calcium 9.3 Total Bilirubin 0.30 Direct Bilirubin 0.15 AST 65 H ALT 50 Alkaline Phosphatase 64 Troponin I High Sens 15 Total Protein 6.0 L Albumin 2.7 L Globulin 3.3 Blood Type Cancelled Antibody Screen Cancelled Crossmatch See Detail Radiography Chest X-Ray - ED: 1 View, Read by ED Physician and - (Scoliosis with chronic lung and bony changes. No evidence of focal infiltrate.) Diagnostic Testing: Clinical Impression(s) from Imaging Studies Chest X-Ray 01/18/23 12:09 IMPRESSION: Degenerative changes, as described above. No demonstrated acute cardiopulmonary process. Electronically Signed: Crow Mcgregor MD at 12:43 EDT Reading Location ID and State: [address] [place] [address] , Service support , EKG Initial EKG: Attestation: I personally reviewed and interpreted this EKG as follows: Interpretation: Sinus Rhythm (Sinus rhythm at [address] change.) Treatment and Re-Evaluation :: CBC is reveals normal white count at 8.9. Hemoglobin is low at 5.4 with hematocrit of 18.3. On November 27 of this year his hemoglobin was 9.5. Chemistry studies reveal a BUN of 68 and a creatinine of 1.93. Creatinine on November 27 was 1.51. Glucose is 131. LFTs are largely unremarkable. Troponin is normal at 15. Lactic acid is elevated at 6.7. EKG is sinus rhythm at 94 bpm with no acute ischemia. Chest x-ray per my interpretation reveals significant scoliosischanges with no evidence of focal infiltrate. Patient has been given IV fluids for blood pressure support. MAP remains between 60 and 65. 3 units of packed RBCs have been ordered given his significant anemia. Rectal examination was performed and reveals dark stool on gloved finger. This returns negative for occult blood. Patient states he has had black stool which she thought was secondary to iron supplements. Family then states that he stopped taking iron 3 weeks ago but in spite of this continues to have dark stools. It is also noted that patient has not been wearing his home oxygen which she is supposed to wear. It is very difficult to get a good waveform on him given his hypotension, but we have been able to get pulse ox is in the 90s. He was placedon 2 L nasal cannula which he is supposed to be wearing at home. This may also be contributing to his lactic acidosis. Discharge Plan Triage Chief Complaint: Weakness ED Provider: Kimberly Cowart Dx/Rx/DC Orders Clinical Impression: Anemia, Hypotension, Acidosis, lactic Prescriptions: No Action aspirin [Adult Low Dose Aspirin] 81 mg tablet,delayed release (DR/EC) 81 mg PO DAILY Hold Instructions: Order Changed valsartan-hydrochlorothiazide 320-12.5 mg tablet 1 tab PO DAILY Patient Comments: TAKE 1 TABLET BY MOUTH ONCE DAILY albuterol sulfate 90 mcg/actuation HFA aerosol inhaler 1 inh inhalation Patient Comments: INHALE 2 PUFFS BY MOUTH EVERY 4 HOURS NEEDED rosuvastatin 20 mg tablet 20 mg PO DAILY Patient Comments: TAKE 1 TABLET BY MOUTH ONCE DAILY pantoprazole 40 mg tablet,delayed release (DR/EC) 40 mg PO DAILY Qty: 90 3RF diltiazem HCl 180 MG capsule 180 mg PO DAILY Hold Instructions: Please follow-up with your PCP to monitor your BP and manage any further changes to your medications. Patient Comments: BLOOD PRESSURE glucose 4 GM tablet,chewable 4 g PO DAILY cilostazol 50 mg tablet 50 mg PO DAILY clopidogrel 75 mg Tablet 75 mg PO DAILY 90 Days Qty: 90 3RF guaifenesin [Mucus Relief ER] 600 mg Tablet Extended Release 12hr 600 mg PO BID 30 Days Qty: 60 0RF tamsulosin 0.4 mg Capsule 0.4 mg PO DAILY 30 Days Qty: 30 0RF Anoro Ellipta 62.5-25 mcg/actuation Blister With Device 1 inh inhalation DAILY Qty: 30 0RF rosuvastatin 10 mg tablet Patient Comments: TAKE 1 TABLET BY MOUTH ONCE DAILY Xarelto 2.5 mg tablet 2.5 mg PO BID Qty: 60 5RF Primary Care Provider: Dom Chaidez Referrals: Dom Chaidez MD [Primary Care Provider] - Disposition Disposition: Acute Care Hospital [facility] What to do if you have Problems For any increased pain, shortness of breath, bleeding, nausea or vomiting, chestpain, or any unexpected problems, contact your Primary Care Provider. Call [facility] ([phone]) or report to the closest Emergency Room. Call 911 if necessary. 01/18/232249 <Electronically signed by Kimberly Cowart MD> Cosigner Signature (if applicable): CC: Dr. Dom Chaidez MD ~ Signed [facility] Work Phone: 1(828) 361-722909-02-2023 History and physical note Author Lizzy Meza [facility] January 18, 2023 2:51pm Note Date/Time January 18, 2023 2:15pm [facility] Medical Records Department [address] [place] [address] H&P Exam - Hospitalist 01/18/23 1408 MR#: [id number] Acct: [id number] Name: RYAN VAZ Rep #:[id number] : 1950 72 From: Lizzy Meza MD PCP: Dr. Dom Chaidez MD Status:AD M IN Location: ICU ICU03-1 HPI - General General Date of Admission: 01/18/23 Date of Service: 01/18/23 Chief Complaint: Generalized weakness HPI Narrative RYAN VAZ, is a 72 M with a history of peripheral vascular disease, COPD, BPH, and hypertension who presented to [facility] 01/18/2023 for epigastric pain and generalized weakness. Over the past 1 month he has been having some burning abdominal pain and has progressively become more weak. His physician sent in a prescription for PPI however patient failed it but did not pick it up and per family has been noncompliant with most of his medications. Over the past day his weakness and pain drastically worsened prompting emergencydepartment visit. Hemoglobin noted to be 5.4 in the ED with a lactic acid of 6.7, patient was hypotensive with a BP of 66/49 on initial presentation. Patient had dark stool on exam in the ED but occult blood reported as negative. Hospitalist consulted for admission for his hypotension, anemia, elevated lacticacid. Patient evaluated at bedside with 2 daughters and spouse and they confirmed that he has been progressively weaker over 1 month, he reports the pain in his epigastrium that was worsened today and he had associated nausea without vomiting earlier. Denies any bright red blood in stool. Reports that he has been having dark stools due to taking iron however daughter confirmed that he stopped taking iron 3 to 4 weeks ago. Denies any changes in urination. At his baseline shortness of breath. Does report that he used to have a high blood pressure but over the past couple of months his blood pressure has been lower and lower with unclear reason. No other acute complaints at this time. [facility] Medical History Acute respiratory failure with hypoxemia Alcohol abuse Back pain Chronic bullous emphysema COPD (chronic obstructive pulmonary disease) COPD exacerbation Edema Hard of hearing Head injury Heartburn High cholesterol History of stress test HTN (hypertension) Hypoglycemia Incidental pulmonary nodule, less than or equal to 3mm Leg cramps Leg pain Neuropathy Osteoporosis PAOD (peripheral arterial occlusive disease) Passed out Peripheral arterial occlusive disease Shortness of breath Smoker Wears eyeglasses Home Medications diltiazem HCl 180 mg capsule,extended release 24 hr 180 mg PO DAILY BP 06/20/14 [History Last Taken 07/29/22] glucose 4 gram chewable tablet 4 g PO DAILY sugar 01/18/20 [History Last Taken 01/18/20] aspirin 81 mg tablet,delayed release (Adult Low Dose Aspirin) 81 mg PO DAILY SUPPLEMENT 05/02/22 [History Last Taken 07/28/22] cilostazol 50 mg tablet 50 mg PO DAILY BONE 07/15/22 [History Last Taken Unknown] clopidogrel 75 mg tablet 75 mg PO DAILY 90 days #90 tabs 08/03/22 [Rx Last Taken Unknown] guaifenesin 600 mg tablet, extended release 12 hr (Mucus Relief ER) 600 mg PO BID 30 days #60 tabs 08/03/22 [Rx Last Taken Unknown] tamsulosin 0.4 mg capsule 0.4 mg PO DAILY 30 days #30 caps 08/03/22 [Rx Last Taken Unknown] umeclidinium 62.5 mcg-vilanterol 25 mcg/actuation powdr for inhalation (Anoro Ellipta) 1 inh inhalation DAILY #30 days 08/03/22 [Rx Last Taken Unknown] albuterol sulfate 90 mcg/actuation aerosol inhaler 1 inh inhalation 08/20/22 [History Last Taken Unknown] rosuvastatin 20 mg tablet 20 mg PO DAILY 08/20/22 [History Last Taken Unknown] valsartan 320 mg-hydrochlorothiazide 12.5 mg tablet 1 tab PO DAILY 08/20/22 [History Last Taken Unknown] pantoprazole 40 mg tablet,delayed release 40 mg PO DAILY #90 tabs 08/26/22 [Rx Last Taken Unknown] rivaroxaban 2.5 mg tablet (Xarelto) 2.5 mg PO BID #60 tabs 09/03/22 [Rx Last Taken Unknown] rosuvastatin 10 mg tablet mg 01/18/23 [History Last Taken Unknown] Allergy/AdvReac Type Severity Reaction Status Date / Time ciprofloxacin HCl Allergy Severe Nausea Verified 08/26/22 12:51 [From Cipro] Family History Father Hypertension Cancer lung Other Osteoporosis Surgical History Hx of colonoscopy Hx of left cataract extraction Hx of right cataract extraction Status post peripheral artery angioplasty Social History Smoking Status: Current every day smoker tobacco type: cigarettes ROS ROS Narrative General: Denies fever/chills, does have low weight however HENT: Denies headache, denies stuffy nose, denies sore throat EYES: Denies changes in vision Resp: Baseline shortness of breath Cardiac: Denies chest pain GI: Epigastric abdominal pain that is burning in nature, denies changes in bowel, did have nausea with no vomiting earlier : Denies changes in urination Extremity: Denies swelling MSK: Generalized weakness Neuro: Denies any numbness/tingling Heme: Seems to have easy bruising Skin: Denies rashes Psychiatric: No complaints voiced Vital Signs Vital Signs Vital Signs: 01/18/23 11:32 01/18/23 11:48 01/18/23 13:16 Temperature 97.2 F L Temperature Source Temporal Pulse Rate 108 H 91 Respiratory Rate 20 H 18 Respiratory Effort Short of Breath Respiratory Pattern Normal Blood Pressure 66/49 L 87/73 L Blood Pressure Mean 54 77 Pulse Ox 96 94 Oxygen Delivery Method Room Air Nasal Cannula Oxygen Flow Rate (L/min) 2 Weight Weight: 41.8 kg Body Mass Index (BMI) 16.3 Physical Exam Narrative General: Alert, tired but no acute distress HEENT: Atraumatic, normocephalic Eyes: Anicteric, normal conjunctiva, extraocular movements grossly intact Neck: Supple Respiratory: Diminished airflow bilaterally, normal respiratory effort Cardiovascular: Regular rate GI: Soft, very thin, patient denies tenderness but did seem to have some pain ondeep palpation in the epigastric region without any rebound, guarding, rigidity Extremities: No edema Musculoskeletal: Moving all extremities Neuro: No overt focal neurological deficits Skin: Scattered bruising Psych: Cooperative Results Lab / Micro Data 01/18/23 11:50 01/18/23 11:50 Labs: Laboratory Results - last 24 hr 01/18/23 11:50: WBC 8.9, RBC 1.86 L, Hgb 5.4 L*, Hct 18.3 L, MCV 98.4 H, MCH 29.0, MCHC 29.5 L, RDW Std Deviation 54.1 H, RDW Coeff of Barbara 15.7 H, Plt Count 316, MPV 10.3, Immature Gran % (Auto) 0.400, Neut % (Auto) 70.0, Lymph % (Auto) 20.9, [place] % (Auto) 8.1, Eos % (Auto) 0.2, Baso % (Auto) 0.4, Absolute Neuts (auto) 6.2, Absolute Lymphs (auto) 1.86, Nucleated RBC % 0, Differential CommentSCANNED, Diff Path Review May foll, Hypochromasia 1+, Anisocytosis 2+, Microcytosis 1+, Macrocytosis 1+, PT 15.8 H, INR 1.3, APTT 27.4, Sodium 137, Potassium4.5, Chloride 103, Carbon Dioxide 21.0, Anion Gap 13, BUN 68 H, Creatinine 1.93 H, Estim Creat Clear Calc 9.14, Est GFR (MDRD) Af Amer 44 L, Est GFR (MDRD) Non-Af 36 L, BUN/Creatinine Ratio 35.2 H, Glucose 131 H, Calcium 9.3, Total Bilirubin 0.30, Direct Bilirubin 0.15, AST 65 H, ALT 50, Alkaline Phosphatase 64, Troponin I High Sens 15, Total Protein 6.0 L, Albumin 2.7 L, Globulin 3.3 01/18/23 11:56: Lactic Acid 6.7 H* 01/18/23 12:40: Blood Type Cancelled, Antibody Screen Cancelled, Crossmatch See Detail 01/18/23 13:20: Crossmatch See Detail Micro: Microbiology 01/18/23 12:45 Stool Stool Occult Blood (BLESSING) - Final Radiology Impression Chest X-Ray 01/18/23 12:09 IMPRESSION: Degenerative changes, as described above. No demonstrated acute cardiopulmonary process. Electronically Signed: Crow Mcgregor MD at 12:43 EDT Reading Location ID and State: [facility] / [place] , Service support , Assessment & Plan Assessment/Plan (1) Hypotension: (2) Anemia: PLAN: Plan #Acute on chronic anemia -Hemoglobin 5.4 in ED with last hemoglobin 11/27/2022 9.5 -Given dark stools with epigastric burning with BUN of 68 and progressive weakness and patient not taking PPI suspect upper GI bleed -Occult stool in ED negative however still feel this is the most likely source -3 units of blood ordered -Cycling H&H -Discussed with GI and GI consulted -Octreotide and PPI drips ordered per recommendation -Patient presently n.p.o. -Will get iron studies and reticulocyte count -No evidence to suggest hemolysis and no other complaints to point to other source of blood loss #Hypotension -Likely secondary to intravascular volume depletion whether from dehydration or blood loss are both -Continue IV fluids -We will transfuse -Patient to go to ICU #Lactic acidemia -Likely secondary to poor perfusion especially in light of his peripheral vascular disease -Lactic acid 6.7, patient receiving fluids, trend -No signs or symptoms of underlying infection and do not feel patient needs empiric antibiotic coverage at this time -Patient's anion gap 13 and bicarb within normal limits, suspect mixed acid-basepicture #Elevated BUN and creatinine -Suspect BUN grossly elevated disproportionate to creatinine based on previous values secondary to upper GI bleed -Creatinine is elevated however at 1.93 with most recent creatinine 11/27/2022 being 1.51, prior to that baseline seemed closer to 1 -Suspect prerenal/due to decreased perfusion, continue fluids, patient for packed red blood cells #COPD -Reportedly supposed to be on home O2 but not wearing it -Having difficult time getting good pleth, will place on O2 -Nebs #Peripheral vascular disease -Statin -Has not been taking home medications per report, pending results and hemoglobinwill need risk-benefit discussions moving forward #Tobacco use -Advise cessation -Patient has been cutting down significantly and only smokes around 2 cigarettesa day with plans to gradually quit this month, encouragement provided, patient does not feel he needs a nicotine patch #DVT ppx: SCDs Lizzy Meza MD Time spent in the patient's overall evaluation,decision-making process, review of diagnostic data, adjustment of management, discussion with other providers, nursing nursing and ancillary staff involved in patient's care documentation, 76minutes Charges/Coding Visit Charges Inpatient E&M: 51151 Init Hosp L3 01/18/23 1451 <Electronically signed by Lizzy Meza MD> Cosigner Signature (if applicable): CC: Dr. Dom Chaidez MD; Dr. Lizzy Meza MD~ Signed [facility] Work Phone: 1(433) 133-518303-18-[address] Gonzalez [facility] August 03, 2022 1:03pm Note Date/Time August 03, 2022 12: 52pm [facility] Medical Records Department [address] [place] [address] Progress Note - [employer] 08/03/22 1250 MR#: [id number] Acct: [id number] Name: RYAN VAZ Rep #:[id number] : 1950 71 From: Huy Gonzalez MD PCP: Dr. Dom Chaidez MD Status:AD M IN Location: [place] [address]- Assessment & Plan Assessment/Plan (1) Chronic bullous emphysema: PLAN: Chronic (2) COPD exacerbation: PLAN: The patient had significant oxygen desaturation on room air, and saturation of 88% at baseline. This is a borderline qualification for supplemental oxygen. Therefore I recommend - Stat ABG on room air. He would qualify with a PaO2 55-59 torr. Regarding recommendations for outpatient management: - Anoro inhaler 1 puff daily - DuoNeb 4 times daily - Complete and permanent smoking cessation - Oxygen therapy to keep SPO2 greater than or equal to 92% at all times - Overnight oximetry on 2 L/min and on room air ZAINAB to qualify for nocturnal oxygen and assure that 2 L/min is sufficient to meet SPO2 goal - Normally I would prescribe a prednisone taper, but will not recommend prednisone at this time due to concern about delaying wound healing and increasing risk of infection. - Complete PFTs as outpatient in 2 to 3 weeks - Keep his appointment with [facility] to fine-tune his COPDmedication and determine if he can discontinue oxygen at that time. His testingshould all be completed 2 weeks prior to his arrival in the office. (3) Incidental pulmonary nodule, less than or equal to 3mm: PLAN: Follow-up low-dose CT in 1 year (4) Acute respiratory failure with hypoxemia: PLAN: As above. Remains to be determined if the patient has chronic respiratoryfailure with CO2 retention, based on his blood gas today and his clinical coursein the near future. PLAN: Plan Thank you for asking [facility] participate in this pleasant gentleman's care. I am looking forward to our group seeing him as an outpatient. Subjective Subjective Patient patient is breathing better, coughing less, not wheezing. FiO2 weaning to 2 to 3 L. Saturation 95% on 2 L at the time of my visit. Denies chest pain headache dizziness altered mental status leg edema. Wants to go home. Case discussed with the vascular PA. Objective Data Objective Data Vital Signs: Vital Signs Temp Pulse Resp BP Pulse Ox O2 Del Method O2 Flow Rate 98.3 F 95 14 125/66 H 88 Nasal Cannula 0 08/03/22 09:25 08/03/22 09:25 08/03/22 09:25 08/03/22 09:25 08/03/22 12:08 08/03/22 09:35 08/03/22 12:08 Oxygen Flow Rate (L/min) [ 2 AMBULATING with Oxygen #1] Oxygen Flow Rate (L/min) [ 0 AMBULATING on Room Air] Oxygen Flow Rate (L/min) [At 2 REST with Oxygen] Oxygen Flow Rate (L/min) [At 0 REST on Room Air] Oxygen Flow Rate (L/min) 2 Oxygen Delivery Method Nasal Cannula Weight: 114 lb 13.773 oz Body Mass Index (BMI) 19.7 Respiratory flowsheet indicates the patient desaturated to 88% on room air, and desaturated to 84% with minimal ambulation. The patient and his recommended that we use [employer] as their home oxygen company, which is the one she uses. Intake & Output: Intake and Output for Last 24 Hours 08/01/22 08/02/22 08/03/22 23:59 23:59 23:59 Intake Total 1204.55 / 1204.55 862 / 862 684 / 684 Output Total 1600 / 1600 400 / 400 200 / 200 Balance -395.45 / -395.45 462 / 462 484 / 484 Lab / Micro Data Attestation: I reviewed the patient's lab results. Result Diagrams: 08/03/22 08:04 08/03/22 08:04 Labs: Laboratory Results - last 24 hr 08/02/22 14:00: Hgb 8.6 L 08/03/22 08:04: Sodium 137, Potassium 3.6, Chloride 102, Carbon Dioxide 25.0, Anion Gap 10, BUN 18, Creatinine 0.87, Estim Creat Clear Calc 56.56, Est GFR (MDRD) Af Amer 110, Est GFR (MDRD) Non-Af 91, BUN/Creatinine Ratio 20.6 H, Glucose 55 L, Calcium 8.2 L 08/03/22 08:04: WBC 6.8, RBC 2.94 L, Hgb 8.5 L, Hct 27.3 L, MCV 92.9, MCH 28.9, MCHC 31.1 L, RDW Std Deviation 47.9 H, RDW Coeff of Barbara 14.2, Plt Count 163, MPV10.3, Immature Gran % (Auto) 0.600, Neut % (Auto) 69.8, Lymph % (Auto) 15.2 L, [place] % (Auto) 10.6 H, Eos % (Auto) 3.5, Baso % (Auto) 0.3, Absolute Neuts (auto)4.8, Absolute Lymphs (auto) 1.04, Nucleated RBC % 0 Micro: Microbiology 08/01/22 20:50 Mucosa - Nasopharyngeal Respiratory Panel (PCR) - Final 08/01/22 20:50 Nasal Secretion SARS-CoV-2 & FLU Antigen (Rapid) - Final Radiography Diagnostic Testing: reviewed. Physical Exam Narrative Well-developed slender gentleman in less respiratory distress than yesterday. Still using accessory muscles with movement HEENT: Nasal cannula, no thrush. Lungs are diminished bilaterally, but with better air movement than yesterday. Improved breath sounds, no wheezing. Heart normal S1-S2 with no murmur extremities have no clubbing cyanosis or edema, lower extremities are warm. Otherwise unchanged from yesterday. Exam of surgical sites deferred to vascular Charges/Coding Visit Charges Inpatient E&M: 25536 Subs Hosp L2 08/03/22 1303 <Electronically signed by Huy Gonzalez MD> Cosigner Signature (if applicable): CC: ~ Signed [facility] Work Phone: 1(155) 308-880803-18-2023 Progress note Author Lucy iFtch [facility] August 03, 2022 12:33pm Note Date/Time August 03, 2022 11: 29am [facility] Medical Records Department [address] [place] [address] Progress Note - Surgery 08/03/22 1119 MR#: [id number] Acct: [id number] Name: RYAN VAZ Rep #:[id number] : 1950 71 From: Lucy TORRES PCP: Dr. Dom Chaidez MD Status:AD M IN Location: [place] [address] Subjective Subjective Patient is feeling good this morning, he wants to be discharged. His family is at bedside. He reports he slept propped up last night. He did receive IV solumedrol x1 and started Anoro inhaler yesterday at pulmonary recommendation. Nursing reports he maintained >92% O2 saturation on 3 lpm overnight, much improved from previous nights. This morning he is at 95% on 2 lpm. His daughter reports that he is actually already scheduled for outpatient pulmonary function tests and f/u, though not until mid-late August. His hgb remains stable this morning at 8.5, he has not required any further transfusions since 1 unit PRBC on 08/01. His BPs have remained stable. He continues to void without issue. He has been tolerating diet without issue. He denies SOB, CP, palpitations, N/V, blood in the urine, blood in the stool, abdominal pain, new/worsening pain in his BLE. Objective Data Objective Data Vital Signs: Vital Signs Temp Pulse Resp BP Pulse Ox O2 Del Method O2 Flow Rate 98.3 F 95 14 125/66 H 95 Nasal Cannula 2 08/03/22 09:25 08/03/22 09:25 08/03/22 09:25 08/03/22 09:25 08/03/22 09:25 08/03/22 09:25 08/03/22 09:25 Oxygen Flow Rate (L/min) [ 2 AMBULATING with Oxygen #1] Oxygen Flow Rate (L/min) [At 2 REST with Oxygen] Oxygen Flow Rate (L/min) 2 Oxygen Delivery Method Nasal Cannula Weight: 114 lb 13.773 oz Body Mass Index (BMI) 19.7 Intake & Output: Intake and Output for Last 24 Hours 08/01/22 08/02/22 08/03/22 23:59 23:59 23:59 Intake Total 1204.55 / 1204.55 862 / 862 684 / 684 Output Total 1600 / 1600 400 / 400 200 / 200 Balance -395.45 / -395.45 462 / 462 484 / 484 Lab / Micro Data Result Diagrams: 08/03/22 08:04 08/03/22 08:04 Labs: Laboratory Results - last 24 hr 08/02/22 14:00: Hgb 8.6 L 08/03/22 08:04: Sodium 137, Potassium 3.6, Chloride 102, Carbon Dioxide 25.0, Anion Gap 10, BUN 18, Creatinine 0.87, Estim Creat Clear Calc 56.56, Est GFR (MDRD) Af Amer 110, Est GFR (MDRD) Non-Af 91, BUN/Creatinine Ratio 20.6 H, Glucose 55 L, Calcium 8.2 L 08/03/22 08:04: WBC 6.8, RBC 2.94 L, Hgb 8.5 L, Hct 27.3 L, MCV 92.9, MCH 28.9, MCHC 31.1 L, RDW Std Deviation 47.9 H, RDW Coeff of Barbara 14.2, Plt Count 163, MPV10.3, Immature Gran % (Auto) 0.600, Neut % (Auto) 69.8, Lymph % (Auto) 15.2 L, [place] % (Auto) 10.6 H, Eos % (Auto) 3.5, Baso % (Auto) 0.3, Absolute Neuts (auto)4.8, Absolute Lymphs (auto) 1.04, Nucleated RBC % 0 Micro: Microbiology 08/01/22 20:50 Mucosa - Nasopharyngeal Respiratory Panel (PCR) - Final 08/01/22 20:50 Nasal Secretion SARS-CoV-2 & FLU Antigen (Rapid) - Final Physical Exam Const alert, oriented x3 and no apparent distress General Appearance: cooperative and comfortable HEENT normocephalic, head/scalp atraumatic, hearing grossly normal bilaterally and external ears normal Nose: external nose normal Eyes EOMs intact bilaterally General Eye: normal appearance of both eyes Neck General: normal visual inspection and trachea midline Resp normal respiratory effort and no use of accessory muscles Effort and Inspection: Negative for labored, stridor or audible wheezes Auscultation: diminished lung sounds Cardio regular rate and regular rhythm Extremity normal to inspection, no clubbing, cyanosis or edema and no calf tenderness Extremity Narrative: Feet pink and warm bilaterally. DP/PT nonpalpable, but with good doppler signalsbilaterally. Normal capillary refill. Fem-fem bypass with strong, palpable pulse. Skin Skin Narrative: RLE incision sites with dressings C/D/I. Bilateral groin incision sites with provena vac dressings in place, functioning appropriately. LLE incision site with surgical glue intact. No erythema, swelling, hematoma, bleeding, drainage, foul odor noted. Neuro oriented x3, CN's II-XII intact bilaterally, moves all extremities, no focal motor deficits and no sensory deficits noted Speech: speech normal Psych mental status grossly normal Appearance: grossly normal Attitude: calm and engaged Activity / Motor Behavior: appropriate eye contact Speech: normal speech Mood & Affect: euthymic mood Thought Process: normal thought process Thought Content: normal thought content Attention / Concentration: attention grossly intact Memory / Cognition: memory grossly intact Insight: insight good Judgement: judgement good Assessment & Plan Assessment/Plan (1) Atherosclerosis of [place] arteries of extremities with rest pain, left leg: PLAN: Plan Patient is stable for discharge from vascular perspective. He continues to have good, improved perfusion to lower extremities, no rest pain, post-op pain well managed, incision sites all with satisfactory appearance. He is tolerating diet and voiding without issue. Will continue ASA, plavix, statin daily. Patient's O2 requirement has satisfactorily decreased from initial postop requirements and has been stable overnight and throughout the day. Discussed with pulmonary and agree that patient is stable for discharge home with home O2 at 2 lpm, Anoro inhaler daily, Albuterol inhaler PRN. Discussed with patient anddaughter the importance of adherence to recommended pharmacologic and O2 therapyand importance of smoking cessation. They acknowledged understanding. They also understand the importance of close outpatient f/u with pulmonary. His BP has been stable on reduced dose losartan and cardizem held. Will have patient continue this outpatient and follow-up with PCP for further management. Patient's H&H have been stable for the last 2 days, he has required no further transfusions. He has had no further issues with vomiting and no signs of bleeding. As patient is stable and ready for d/c will plan to d/c with PO protonix and carafate, follow hgb closely outpatient, and arrange outpatient f/u. Hospitalist agrees stable for discharge. Will plan for this afternoon. 08/03/22 1233 <Electronically signed by Lucy TORRES> Cosigner Signature (if applicable): CC: ~ Signed [facility] Work Phone: 1(761) 215-770103-17-[address] Gonzalez [facility] August 02, 2022 5:56pm Note Date/Time August 02, 2022 5:4 1pm [facility] Medical Records Department [address] [place] [address] Consultation - [employer] 08/02/22 1729 MR#: [id number] Acct: [id number] Name: RYAN VAZ Rep #:[id number] : 1950 71 From: Huy Gonzalez MD PCP: Dr. Dom Chaidez MD Status:AD M IN Location: [facility] [id number] Assessment & Plan Assessment/Plan (1) COPD exacerbation: PLAN: one dose of solumedrol IV to minimize impact on wound healing while allowing improvement in AE COPD. start Anoro (LAMA/LABA conbimation) inhaler today, then daily outpatient PFTs and pulmonary followup smoking cessation; patient is trying to quit and decreased to 6 cigarettes per day. Abrupt decrease in smoking has been associated with increased respiratory secretions (the usual advice is to quit 2 weeks prior to surgery to avoid this). Duoneb scheduled q6h while in hospital (2) Chronic bullous emphysema: PLAN: stable. Disease pathophysiology and treatment explained to patient and his family, and role of inhalers and continued smoking. (3) Acute respiratory failure with hypoxemia: PLAN: Likely due to increased secretions and untreated COPD +/- IV fluids - titrate FiO2 to keep SpO2 >92% - anoro daily, duoneb q6h, solumedrol x 1 - additional recommendations depending on clinical response - avoid fluid overload - weigh patient daily, give empiric lasix IV if weight increased >2 lbs. (4) Incidental pulmonary nodule, less than or equal to 3mm: PLAN: he will need continued follow up with a low dose ct chest in Jun 2023. (5) Atherosclerosis of [place] arteries of extremities with rest pain, left leg: PLAN: Management pr Dr. Grubbs. HPI Consult Data Date of Consult: 08/02/22 HPI Narrative Reason for Consultation: COPD, hypoxia. HPI Narrative: RYAN VAZ, is a 71 M who is postop from extensive revascularization surgerytoday by Dr. Grubbs. His primary physician is Dr. Chaidez.. he is doing well,but postop was noted to need 9 L/min of oxygen. He has undiagnosed COPD, is a 2 to 3 pack/day smoker for 60 years, has never quit for any length of time. 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 He cut down to 6 cigarettes a day before surgery. He has never used inhalers except occasional albuterol, he has not been hospitalized for COPD, or been in the emergency room or physician visitfor exacerbations. Never had pulmonary function test and has no knowledge of anabnormal chest x-ray. His exercise tolerance is limited by his vascular insufficiency, he does not stop because of shortness of breath. Prior to admission, his respiratory symptoms included minimal wheezing, he only coughs and produces sputum after his inhaler. He has never been on oxygen. He denies any chest pain leg edema dizziness with exertion chest pain, pleurisy, and has never had COVID. He has received vaccinations for COVID did not get hisflu shot this year but does not remember having influenza except as a child. Past pulmonary history includes rib fractures, postnasal drip, occasional foot swelling, but denies prior pneumonia, thorax, chest trauma, tuberculosis exposure, severe infection, DVT, pulmonary embolism, ear infections or sinus infections, pulmonary hypertension, dizziness and falls, or swallowing difficulty. Past medical history is reviewed below, family and social history reviewed, medications and allergies reviewed. Ciprofloxacin causes nausea. [facility] Medical History (Updated 08/02/22 @ 17:[address] Huy Gonzalez MD) Acute respiratory failure with hypoxemia Alcohol abuse Back pain Chronic bullous emphysema COPD (chronic obstructive pulmonary disease) COPD exacerbation Edema Hard of hearing Head injury Heartburn High cholesterol History of stress test HTN (hypertension) Hypoglycemia Incidental pulmonary nodule, less than or equal to 3mm Leg cramps Leg pain Neuropathy Osteoporosis PAOD (peripheral arterial occlusive disease) Passed out Peripheral arterial occlusive disease Shortness of breath Smoker Wears eyeglasses Home Medications diltiazem HCl 180 mg capsule,extended release 24 hr 180 mg PO DAILY BP 06/20/14 [History Last Taken 07/29/22] valsartan 320 mg-hydrochlorothiazide 12.5 mg tablet 320 mg PO DAILY BP 06/20/14 [History Last Taken 01/18/20] glucose 4 gram chewable tablet 4 g PO DAILY sugar 01/18/20 [History Last Taken 01/18/20] aspirin 81 mg tablet,delayed release (Adult Low Dose Aspirin) 81 mg PO DAILY SUPPLEMENT 05/02/22 [History Last Taken 07/28/22] cilostazol 50 mg tablet 50 mg PO DAILY BONE 07/15/22 [History Last Taken Unknown] rosuvastatin 10 mg tablet (Crestor) 10 mg PO QHS CHOLESTEROL 07/15/22 [History Last Taken Unknown] Allergy/AdvReac Type Severity Reaction Status Date / Time ciprofloxacin HCl Allergy Severe Nausea Verified 07/29/22 06:20 [From Cipro] Family History Father Hypertension Cancer lung Other Osteoporosis Surgical History (Updated 07/15/22 @ 13:36 by Christy Carbajal) Hx of colonoscopy Hx of left cataract extraction Hx of right cataract extraction Status post peripheral artery angioplasty Social History Smoking Status: Current every day smoker tobacco type: cigarettes ROS Constitutional Constitutional: Denies body ache(s), fatigue, headache(s) or night sweats ENT HEENT: Reports nasal congestion; Denies dizziness, epistaxis or headache(s) Cardiovascular Cardiovascular: Reports claudication and dyspnea; Denies chest pain or dizziness Respiratory/Chest Respiratory/Chest: Reports chest tightness and dyspnea; Denies cough, hemoptysis, pain on inspiration or wheezing Gastrointestinal Gastrointestinal: Denies abdominal pain Genitourinary Genitourinary: Denies flank pain or hematuria Musculoskeletal Musculoskeletal: Denies arthralgias Integumentary Integumentary: Denies lesions Neurologic Neurologic: Denies abnormal speech or confusion Psychiatric Psychiatric: Denies anxiety or depression Endocrine Endocrinology: Denies fatigue Hematologic/Lymphatic Hematologic/Lymphatic: Denies easy bleeding Physical Exam Narrative Well-developed slender gentleman on 4 L of oxygen, in no respiratory distress, sitting up in bed reading with newspaper with his glasses on. and daughterwere at bedside. HEENT normocephalic atraumatic eyes extraocular's are intact mucous membranes are moist, no thrush Neck is supple with no JVD thyromegaly or mass Lungs are hyperinflated with increased AP diameter no use of accessory muscles except when sitting up in bed. Decreased diaphragmatic excursion, distant quietbreath sounds, no rhonchi or crackles, mild end expiratory wheeze at the right lung base at the posterior axillary line otherwise clear. No pleural rubs. Heart normal S1-S2 regular rhythm with no murmurs rubs or gallops, pulses are 2+upper extremities Lower extremities have multiple dressings in place, not disturbed. The feet andankles are warm and well-perfused with no edema. SCDs in place. Neurologic alert oriented x3 pleasant and appropriate. Grossly nonfocal. Medical Records Data Attestation: I reviewed the patient's medical records Lab / Micro Data Attestation: I reviewed the patient's lab results. Lab results narrative: SPO2 90% on 9 L postop, improved to 95% on 4 L. Result Diagrams: 08/02/22 14:00 08/02/22 06:00 Labs: Laboratory Results - last 24 hr 08/01/22 14:25: B-Natriuretic Peptide 97.6 08/01/22 16:15: Blood Type O POSITIVE, Antibody Screen NEGATIVE, Crossmatch See Detail 08/01/22 22:37: Hgb 8.1 L, Hct 24.2 L 08/02/22 06:00: WBC 8.5, RBC 2.79 L, Hgb 8.3 L, Hct 25.5 L, MCV 91.4, MCH 29.7, MCHC 32.5, RDW Std Deviation 47.8 H, RDW Coeff of Barbara 14.3, Plt Count 154, MPV 10.9, Immature Gran % (Auto) 0.500, Neut % (Auto) 78.4 H, Lymph % (Auto) 11.3 L,[place] % (Auto) 8.7, Eos % (Auto) 0.9, Baso % (Auto) 0.2, Absolute Neuts (auto) 6.7, Absolute Lymphs (auto) 0.96, Nucleated RBC % 0 08/02/22 06:00: Sodium 139, Potassium 3.4 L, Chloride 102, Carbon Dioxide 27.0, Anion Gap 10, BUN 23 H, Creatinine 0.94, Estim Creat Clear Calc 51.74, Est GFR (MDRD) Af Amer 101, Est GFR (MDRD) Non-Af 83, BUN/Creatinine Ratio 24.3 H, Glucose 82, Calcium 8.5 08/02/22 14:00: Hgb 8.6 L Micro: Microbiology 08/01/22 20:50 Mucosa - Nasopharyngeal Respiratory Panel (PCR) - Final 08/01/22 20:50 Nasal Secretion SARS-CoV-2 & FLU Antigen (Rapid) - Final Negative EXAM:? XR CHEST, 1 VIEW CLINICAL INDICATION:? hypoxia TECHNIQUE:? Frontal view of the chest.? This report was created using go2 media report generation technology. COMPARISON:? 01/18/2020 FINDINGS: LUNGS AND PLEURAL SPACES:? There are interstitial opacities bilaterally which may represent scar or mild edema.? There is blunting of the left costophrenic angle which may represent pleural effusion or scarring.? No pneumothorax. HEART:? Unremarkable.? Cardiac silhouette not enlarged. MEDIASTINUM:? Central airways and mediastinal contour are unremarkable. BONES/JOINTS:? There is a scoliotic deformity of the thoracic spine. SOFT TISSUES:? Unremarkable. RAD/Chest 1 View (Portable) IMPRESSION: Interstitial opacities which may represent scar or edema. There is no focal consolidation. Electronically Signed: Wolfgang Barnes MD at 16:[address]/Low Dose CT Lung Screening IMPRESSION:? Noncalcified nodules one within the left base which was seen on a previous CTA of the abdomen and pelvis dated 05/09/2022 is stable and a second pleural-based nodule right lower lobe which is also stable.? There are severe underlying emphysematous changes with pulmonary hyperinflation. Lung-RADS score: 2 - Benign Appearance or Behavior.? Recommend continued annual screening with low-dose CT (LDCT) in 12 months. ? Electronically Signed: Wolfgang Barnes MD at 19:27 EST Charges/Coding Visit Charges Inpatient E&M: 01851 Init Hosp L3 08/02/22 1756 <Electronically signed by Huy Gonzalez MD> Cosigner Signature (if applicable): CC: Dr. Enoc Grubbs MD; Dr. Dom Chaidez MD; Dr. Huy Gonzalez MD; Dr. Sukhi Alfredo MD~ Signed [facility] Work Phone: 1(785) 766-840103-17-[address] Alfredo [facility] August 02, 2022 11:24am Note Date/Time August 02, 2022 11: 17am [facility] Medical Records Department [address] [place] [id number] Progress Note - Hospitalist 08/02/22 1115 MR#: [id number] Acct: [id number] Name: RYAN VAZ Rep #:[id number] : 1950 71 From: Sukhi stewart MD PCP: Dr. Dom Chaidez MD Status:AD M IN Location: [place] [address] Subjective Subjective Doing well, no issues overnight. No further episodes of hematemesis. Still little short of breath requiring 6 L nasal cannula Objective Data Objective Data Vital Signs: Vital Signs Temp Pulse Resp BP Pulse Ox O2 Del Method O2 Flow Rate 97.3 F L 94 16 126/62 H 94 Nasal Cannula 6 08/02/22 09:24 08/02/22 09:24 08/02/22 09:24 08/02/22 09:24 08/02/22 09:24 08/02/22 09:24 08/02/22 09:24 Oxygen Flow Rate (L/min) [ 2 AMBULATING with Oxygen #1] Oxygen Flow Rate (L/min) [At 2 REST with Oxygen] Oxygen Flow Rate (L/min) 6 Oxygen Delivery Method Nasal Cannula Weight: 113 lb 8.609 oz Body Mass Index (BMI) 19.5 Intake & Output: Intake and Output for Last 24 Hours 08/01/22 08/02/22 08/03/22 03:59 03:59 03:59 Intake Total 125.45 / 125.45 1204.55 / 1204.55 110 / 110 Output Total 1470 / 1470 1500 / 1500 400 / 400 Balance -1344.55 / -1344.55 -295.45 / -295.45 -290 / -290 Lab / Micro Data Result Diagrams: 08/02/22 06:00 08/02/22 06:00 Labs: Laboratory Results - last 24 hr 08/01/22 14:25: Hgb 7.4 L, Hct 22.6 L 08/01/22 14:25: B-Natriuretic Peptide 97.6 08/01/22 16:15: Blood Type O POSITIVE, Antibody Screen NEGATIVE, Crossmatch See Detail 08/01/22 22:37: Hgb 8.1 L, Hct 24.2 L 08/02/22 06:00: WBC 8.5, RBC 2.79 L, Hgb 8.3 L, Hct 25.5 L, MCV 91.4, MCH 29.7, MCHC 32.5, RDW Std Deviation 47.8 H, RDW Coeff of Barbara 14.3, Plt Count 154, MPV 10.9, Immature Gran % (Auto) 0.500, Neut % (Auto) 78.4 H, Lymph % (Auto) 11.3 L,[place] % (Auto) 8.7, Eos % (Auto) 0.9, Baso % (Auto) 0.2, Absolute Neuts (auto) 6.7, Absolute Lymphs (auto) 0.96, Nucleated RBC % 0 08/02/22 06:00: Sodium 139, Potassium 3.4 L, Chloride 102, Carbon Dioxide 27.0, Anion Gap 10, BUN 23 H, Creatinine 0.94, Estim Creat Clear Calc 51.74, Est GFR (MDRD) Af Amer 101, Est GFR (MDRD) Non-Af 83, BUN/Creatinine Ratio 24.3 H, Glucose 82, Calcium 8.5 Micro: Microbiology 08/01/22 20:50 Mucosa - Nasopharyngeal Respiratory Panel (PCR) - Final 08/01/22 20:50 Nasal Secretion SARS-CoV-2 & FLU Antigen (Rapid) - Final Radiography Diagnostic Testing: Radiology Impression Chest X-Ray 08/01/22 16:05 IMPRESSION: Interstitial opacities which may represent scar or edema. There is no focal consolidation. Electronically Signed: Wolfgang Barnes MD at 16:24 EDT , Physical Exam Narrative General: Alert, Oriented x3, Cooperative, No apparent distress HEENT: Atraumatic, PERRLA, EOMI, Normocephalic Oral: Moist Mucosa Neck: Supple, No JVD Lungs: Diminished, Normal air movement, No rhonchi, No wheeze, No rales slight crackles in right base Cardiovascular: Regular rate, Regular Rhythm, Normal S1, Normal S2, No murmurs Abdomen: Soft, Non Tender, Non-Distended, No Hepato-splenomegaly Extremities: No edema, Capillary Refill Less than 3 Seconds Skin: No rashes, No breakdown Musculoskeletal: No Tenderness to Palpation of Joints or Extremities Neurological: Cranial nerves II-XII grossly intact, Motor Exam 5/5 strength throughout, Sensory exam intact to light touch and pain Psych/Mental Status: Normal Affect, Appropriate Assessment & Plan Assessment/Plan (1) Atherosclerosis of lower extremity with claudication: PLAN: Plan 1. Acute hypoxic respiratory insufficiency secondary to aspiration versus COPD exacerbation ? Given the history of multiple rounds of emesis will cover for aspiration with Unasyn ? Respiratory panel and COVID are negative ? BMP is unremarkable ? No obvious signs of wheezing, will continue with inhalers but hold off on steroids 2. Postoperative anemia ?Given his possibility for hematemesis, will consult GI ? Continue with PPI ? Given the fact that he just had stents placed for peripheral vascular disease,will continue with aspirin and Plavix at this time but will have a low thresholdfor stopping if his hemoglobin continues to drop, currently at 8.3 3. Peripheral vascular disease status post intervention 07/29/2022/HTN/HLD ? His blood pressures stable ? Continue with losartan which was decreased in dose from 100 mg to 50 mg daily,and will continue with Hydrocort 5 side but will hold his Cardizem ? Continue with aspirin, Plavix, statin, cilostazol DVT: Heparin Charges/Coding Visit Charges Inpatient E&M: 78340 Subs Hosp L2 08/02/22 1124 <Electronically signed by Sukhi Alfredo MD> Cosigner Signature (if applicable): CC: ~ Signed [facility] Work Phone: 1(131) 578-127003-16-[address] Meza [facility] August 01, 2022 8:08pm Note Date/Time August 01, 2022 7:3 6pm [facility] Medical Records Department [address] [place] [address] Consultation - Hospitalist 08/01/221933 MR#: [id number] Acct: [id number] Name: RYAN VAZ Rep #:[id number] : 1950 71 From: Lizzy Meza MD PCP: Dr. Dom Chaidez MD Status:AD M IN Location: [place] [id number] Assessment & Plan Assessment/Plan (1) Atherosclerosis of lower extremity with claudication: PLAN: Plan #Increasing hypoxia with suspected history of COPD -Unclear etiology at this time -Chest x-ray today with interstitial opacities which may be scar or edema but there is no focal consolidation, no recent chest x-ray for comparison however -We will add on BNP and also order respiratory panel and COVID, encourage incentive spirometry -No acute infiltrate and has a chronic cough with no increase in sputum production so do not feel we need antibiotics at this time -There is suspicion of COPD, has albuterol as needed however we will schedule nebs, does not have significant wheezes and does not particularly feel more short of breath so steroids have not been started but if any worsening or increasing requirements can consider this and can also consider CT chest to better evaluate lung parenchyma if patient does not improve -Pending BNP, if breathing worsens overnight and BNP elevated can consider BiPAPand/or Lasix #Postop anemia -There was a question of coffee-ground emesis yesterday as patient vomited 5 times last night, he reports he does not think that there is any blood but he did have some heartburn around that time and staff described as coffee-ground -Agree with PPI drip and sucralfate -He is receiving a unit of blood presently and H&H is to be rechecked after -Denies any blood per rectum -Stool occult ordered however with his reported heartburn and concern for coffee-ground emesis yesterday with need for repeat packed red blood cells todaywe will consult GI -Discussed with vascular, continuing aspirin and Plavix at this time. If absolutely necessary could consider holding Plavix as a last line but if possible will need to continue both #Peripheral vascular disease -Status post intervention with Dr. Grubbs 07/29 -On aspirin, statin, Plavix, cilostazol #Hypertension -Given his hypotension earlier we will hold Cardizem, decrease losartan and add holding parameters for hydrochlorothiazide and losartan as BP is already starting to improve based on most recent vitals -Due to most recent BP improved we will hold off on bolusing with fluids given respiratory status #DVT ppx: Is on heparin subq Lizzy Meza MD Time spent in the patient's overall evaluation,decision-making process, review of diagnostic data, adjustment of management, discussion with other providers, nursing nursing and ancillary staff involved in patient's care documentation, 45Minutes HPI Consult Data Date of Consult: 08/01/22 HPI Narrative Reason for Consultation: Increasing O2 requirements HPI Narrative: RYAN VAZ, is a 71 M with a history of peripheral vascular disease who presented to [facility] 07/29/2022 for severe bilateral lower extremity peripheral arterial occlusive disease. He underwent extensive vascular intervention and tolerated that well. He did have some postop hypotension and was briefly in the ICU but this resolved and he was transferred to the floor yesterday. He had some heartburn and some nausea and had 5 episodes of emesis which were dark and there was concern it could be coffee-ground. He was placed on a PPI drip and monitored. Over the past day he has not had any more emesis or abdominal pain but has a little bit of nausea, he didhave a hemoglobin of 7.4 on recheck today and is receiving another unit of packed red blood cells and also has had some increasing O2 requirements so hospitalist consulted for assistance with management. When evaluated patient hereports he feels somewhat tired but overall not doing poorly. Reports no problems with his legs, no shortness of breath out of proportion to how he usually feels, has chronic cough and does not feel this is changed. Denies abdominal pain or any further epigastric burning. Reports he is actually been constipated and has not noted any blood per rectum. [facility] Medical History (Updated 07/15/22 @ 13:36 by Christy Carbajal) Alcohol abuse Back pain COPD (chronic obstructive pulmonary disease) Edema Hard of hearing Head injury Heartburn High cholesterol History of stress test HTN (hypertension) Hypoglycemia Leg cramps Leg pain Neuropathy Osteoporosis PAOD (peripheral arterial occlusive disease) Passed out Peripheral arterial occlusive disease Shortness of breath Smoker Wears eyeglasses Home Medications diltiazem HCl 180 mg capsule,extended release 24 hr 180 mg PO DAILY BP 06/20/14 [History Last Taken 07/29/22] valsartan 320 mg-hydrochlorothiazide 12.5 mg tablet 320 mg PO DAILY BP 06/20/14 [History Last Taken 01/18/20] glucose 4 gram chewable tablet 4 g PO DAILY sugar 01/18/20 [History Last Taken 01/18/20] aspirin 81 mg tablet,delayed release (Adult Low Dose Aspirin) 81 mg PO DAILY SUPPLEMENT 05/02/22 [History Last Taken 07/28/22] cilostazol 50 mg tablet 50 mg PO DAILY BONE 07/15/22 [History Last Taken Unknown] rosuvastatin 10 mg tablet (Crestor) 10 mg PO QHS CHOLESTEROL 07/15/22 [History Last Taken Unknown] Allergy/AdvReac Type Severity Reaction Status Date / Time ciprofloxacin HCl Allergy Severe Nausea Verified 07/29/22 06:20 [[facility] Family History Father Hypertension Cancer lung Other Osteoporosis Surgical History (Updated 07/15/22 @ 13:36 by Christy Carbajal) Hx of colonoscopy Hx of left cataract extraction Hx of right cataract extraction Status post peripheral artery angioplasty Social History Smoking Status: Current every day smoker tobacco type: cigarettes ROS ROS Narrative General: Denies fever/chills HENT: Denies headache, denies stuffy nose, denies sore throat EYES: Chronic worsening in vision Resp: Denies worsening of shortness of breath, has chronic cough that he does not feel is changed Cardiac: Denies chest pain GI: Denies abdominal pain, has reported some constipation, some nausea without any further vomiting : Denies changes in urination Extremity: Denies swelling MSK: Denies weakness Neuro: Denies any numbness/tingling Heme: Bruises easily Skin: Denies rashes Psychiatric: No complaints voiced Physical Exam Narrative General: Alert, oriented, no apparent distress HEENT: Atraumatic, normocephalic Eyes: Anicteric, normal conjunctiva, extraocular movements grossly intact Neck: Supple Respiratory: Somewhat diminished at the bases, do not appreciate crackles, did not appreciate wheezes, normal respiratory effort Cardiovascular: Regular rate and rhythm GI: Soft, nontender, nondistended Extremities: No edema Musculoskeletal: Moving all extremities Neuro: No overt focal neurological deficits Skin: No rashes appreciated Psych: Cooperative Lab / Micro Data Result Diagrams: 08/01/22 14:25 08/01/22 03:49 Labs: Laboratory Results - last 24 hr 08/01/22 03:49: Sodium 140, Potassium 3.7, Chloride 103, Carbon Dioxide 27.0, Anion Gap 10, BUN 28 H, Creatinine 1.03, Estim Creat Clear Calc 48.14, Est GFR (MDRD) Af Amer 91, Est GFR (MDRD) Non-Af 75, BUN/Creatinine Ratio 27.2 H, Glucose 122 H, Calcium 8.9 08/01/22 03:49: WBC 10.1, RBC 2.90 L, Hgb 8.5 L, Hct 26.1 L, MCV 90.0, MCH 29.3,MCHC 32.6, RDW Std Deviation 44.1 H, RDW Coeff of Barbara 13.3, Plt Count 167, MPV 10.7, Immature Gran % (Auto) 0.200, Neut % (Auto) 87.8 H, Lymph % (Auto) 5.9 L, [place] % (Auto) 6.0, Eos % (Auto) 0.0, Baso % (Auto) 0.1, Absolute Neuts (auto) 8.8 H, Absolute Lymphs (auto) 0.59 L, Nucleated RBC % 0, Differential Comment SCANNED 08/01/22 14:25: Hgb 7.4 L, Hct 22.6 L 08/01/22 16:15: Blood Type O POSITIVE, Antibody Screen NEGATIVE, Crossmatch See Detail Radiology Impression KUB X-Ray 08/01/22 01:57 IMPRESSION: 1. Prominent loops of gas-filled bowel are identified. If concerned for a developing bowel obstruction, recommend CT. 2. No other acute disease. Ancillary findings as above. Electronically Signed: Israel Troy MD at 2:22 EDT , Chest X-Ray 08/01/22 16:05 IMPRESSION: Interstitial opacities which may represent scar or edema. There is no focal consolidation. Electronically Signed: Wolfgang Barnes MD at 16:24 EDT , Charges/Coding Visit Charges Office Visits / Consults: 41310 OV L4 Est 08/01/222007 <Electronically signed by Lizzy Meza MD> Cosigner Signature (if applicable): CC: Dr. Franco Collins MD; Dr. Enoc Grubbs MD; Dr. Dom Chaidez MD~ Signed [facility] Work Phone: 1(227) 166-525203-16-[address] Grubbs [facility] August 01, 2022 9:52am Note Date/Time August 01, 2022 9:5 2am [facility] Medical Records Department [address] [place] [id number] Progress Note - Surgery 08/01/22 0946 MR#: [id number] Acct: [id number] Name: RYAN VAZ Rep #:[id number] : 1950 71 From: Enoc Grubbs MD PCP: Dr. Dom Chaidez MD Status:AD M IN Location: [place] [address] Subjective Subjective Had a rough night last night, N/V multiple episodes with concern for coffee ground appearance. Feeling better this morning. -F/BM. Objective Data Objective Data A&O x 3, NAD Tachycardic, Reg Rhythm soft, NT, ND +fem-fem pulse mild bilateral edema normal capillary refill, pink/warm feet Vital Signs: Vital Signs Temp Pulse Resp BP Pulse Ox O2 Del Method O2 Flow Rate 98.3 F 102 H 18 163/61 H 94 Nasal Cannula 2 08/01/22 03:28 08/01/22 03:28 08/01/22 03:28 08/01/22 03:28 08/01/22 03:28 08/01/22 07:47 08/01/22 07:47 Oxygen Flow Rate (L/min) [ 2 AMBULATING with Oxygen #1] Oxygen Flow Rate (L/min) [At 2 REST with Oxygen] Oxygen Flow Rate (L/min) 2 Oxygen Delivery Method Nasal Cannula Weight: 112 lb 10.499 oz Body Mass Index (BMI) 19.3 Intake & Output: Intake and Output for Last 24 Hours 07/30/22 07/31/22 08/01/22 23:59 23:59 23:59 Intake Total 2020.00 / 2070.00 175.45 / 175.45 124.55 / 124.55 Output Total 550 / 550 1370 / 1370 850 / 850 Balance 1470.00 / 1520.00 -1194.55 / -1194.55 -725.45 / -725.45 Lab / Micro Data Result Diagrams: 08/01/22 03:49 08/01/22 03:49 Labs: Laboratory Results - last 24 hr 07/31/22 17:05: POC Glucose 99 08/01/22 03:49: Sodium 140, Potassium 3.7, Chloride 103, Carbon Dioxide 27.0, Anion Gap 10, BUN 28 H, Creatinine 1.03, Estim Creat Clear Calc 48.14, Est GFR (MDRD) Af Amer 91, Est GFR (MDRD) Non-Af 75, BUN/Creatinine Ratio 27.2 H, Glucose 122 H, Calcium 8.9 08/01/22 03:49: WBC 10.1, RBC 2.90 L, Hgb 8.5 L, Hct 26.1 L, MCV 90.0, MCH 29.3,MCHC 32.6, RDW Std Deviation 44.1 H, RDW Coeff of Barbara 13.3, Plt Count 167, MPV 10.7, Immature Gran % (Auto) 0.200, Neut % (Auto) 87.8 H, Lymph % (Auto) 5.9 L, [place] % (Auto) 6.0, Eos % (Auto) 0.0, Baso % (Auto) 0.1, Absolute Neuts (auto) 8.8 H, Absolute Lymphs (auto) 0.59 L, Nucleated RBC % 0, Differential Comment SCANNED Radiography Diagnostic Testing: Radiology Impression KUB X-Ray 08/01/22 01:57 IMPRESSION: 1. Prominent loops of gas-filled bowel are identified. If concerned for a developing bowel obstruction, recommend CT. 2. No other acute disease. Ancillary findings as above. Electronically Signed: Israel Troy MD at 2:22 EDT , Assessment & Plan Assessment/Plan (1) Atherosclerosis of [place] arteries of extremities with rest pain, left leg: PLAN: -POD # 3 fem-fem, iliac stent, fem-pop -had severe reflux/heartburn before N/V; ate pepperoni pizza for dinner which hefeels incited things -minimal drop in Hgb; will repeat later today -cont asa, plavix, heparin off -protonix IV for now, PO once sure he is able to tolerate meds; carafate -colace/dulcolax -may re-attempt clears later today -home when bowel function returns and able to tolerate PO 08/01/22 0952 <Electronically signed by Enoc Grubbs MD> Cosigner Signature (if applicable): CC: ~ Signed [facility] Work Phone: 1(104) 525-929203-15-[address] Grubbs [facility] July 31, 2022 12:30pm Note Date/Time July 31, 2022 11: 10am [facility] Medical Records Department [address] [place] [address] Progress Note - Surgery 07/31/22 1101 MR#: [id number] Acct: [id number] Name: RYAN VAZ Rep #:[id number] : 1950 71 From: Lucy TORRES PCP: Dr. Dom Chaidez MD Status:AD M IN Location: ICU CVICU20 2-1 Subjective Subjective Has had trouble voiding, had to have straight cath yesterday evening. This morning received flomax. Said he has been drinking water and coffee this morningand so far has not voided and does not even have the urge to do so. He has been on 2L O2 via NC as he had been desaturating to high 80s on room air when sitting. He is not on oxygen at home, does not follow with pulmonary but does have significant smoking history Otherwise, he is tolerating normal diet. He has been up to the chair without issue, has walked minimally but no issues so far. His pain is well controlled, sore around the incision sites. His BP and H&H remain stable. Objective Data Objective Data Vital Signs: Vital Signs Temp Pulse Resp BP Pulse Ox O2 Del Method O2 Flow Rate 98.4 F 76 23 H 144/69 H 97 Room Air 2 07/31/22 08:28 07/31/22 08:28 07/31/22 08:28 07/31/22 08:28 07/31/22 08:28 07/31/22 08:30 07/31/22 06:00 Oxygen Flow Rate (L/min) 2 Oxygen Delivery Method Room Air Weight: 115 lb 11.883 oz Body Mass Index (BMI) 19.8 Intake & Output: Intake and Output for Last 24 Hours 07/29/22 07/30/22 07/31/22 23:59 23:59 23:59 Intake Total 2631.17 / 2631.17 2020.00 / 2070.00 160.45 / 160.45 Output Total 300 / 450 550 / 550 820 / 820 Balance 2331.17 / 2181.17 1470.00 / 1520.00 -659.55 / -659.55 Lab / Micro Data Result Diagrams: 07/31/22 04:30 07/30/22 03:30 Labs: Laboratory Results - last 24 hr 07/30/22 12:03: Hgb 9.3 L, Hct 28.5 L 07/31/22 04:30: WBC 10.8, RBC 3.08 L, Hgb 9.2 L, Hct 27.7 L, MCV 89.9, MCH 29.9,MCHC 33.2, RDW Std Deviation 45.3 H, RDW Coeff of Barbara 13.9, Plt Count 164, MPV 10.2, Immature Gran % (Auto) 0.400, Neut % (Auto) 79.8 H, Lymph % (Auto) 11.1 L,[place] % (Auto) 7.7, Eos % (Auto) 0.8, Baso % (Auto) 0.2, Absolute Neuts (auto) 8.6 H, Absolute Lymphs (auto) 1.20, Nucleated RBC % 0 Physical Exam Const alert, oriented x3 and no apparent distress General Appearance: cooperative and comfortable HEENT normocephalic, head/scalp atraumatic, hearing grossly normal bilaterally and external ears normal Nose: external nose normal Eyes EOMs intact bilaterally General Eye: normal appearance of both eyes Resp normal respiratory effort, no retractions and no use of accessory muscles Effort and Inspection: able to speak in complete sentences; Negative for labored, stridor or audible wheezes Cardio regular rate and regular rhythm Peripheral Pulses: brachial pulses present and radial pulses present Extremity Extremity Narrative: Bilateral groin incision sites with vacuum dressing intact and right and left leg incision C/D/I, no significant erythema, swelling, drainage, bleeding, ecchymosis/hematoma noted. Neuro oriented x3, CN's II-XII intact bilaterally, moves all extremities and no focal motor deficits Speech: speech normal Psych mental status grossly normal Attitude: calm and engaged Activity / Motor Behavior: appropriate eye contact Speech: normal speech Mood & Affect: euthymic mood Attention / Concentration: attention grossly intact Memory / Cognition: memory grossly intact Judgement: judgement good Assessment & Plan Assessment/Plan (1) Atherosclerosis of [place] arteries of extremities with rest pain, left leg: PLAN: Patient continues to have difficulty urinating. Flomax was given. He has voided 100 cc total this morning. Will see how he does over the next few hours. If difficulty voiding persists, plan to place bashir with leg bag for discharge, and would see him outpatient for continued management. He has not ambulated very much, except to get to chair. Ask that he try to ambulate more today, will have therapy see him as well. Will work on weaning off supplemental O2 since he is not normally on any at home. Otherwise, patient is feeling well. His pain is well-managed, he is tolerating diet. He is hemodynamically stable. He does not feel quite ready for discharge at this time, will continue to monitor and see how he does with ambulation and voiding trials. 07/31/22 1206 <Electronically signed by Lucy TORRES> Cosigner Signature (if applicable): 07/31/22 1230 <Electronically signed by Enoc Grubbs MD> CC: ~ Signed [facility] Work Phone: 1(806) 278-715003-14-2023 Procedure [facility] 07-30-[address] Grubbs [facility] July 30, 2022 9:04am Note Date/Time July 30, 2022 9:0 4am [facility] Medical Records Department [address] [place] [address] Progress Note - Surgery 07/30/22 0857 MR#: [id number] Acct: [id number] Name: RYAN VAZ Rep #:[id number] : 1950 71 From: Enoc Grubbs MD PCP: Dr. Dom Chaidez MD Status:AD M IN Location: ICU CVICU20 2-1 Subjective Subjective Doing well today, sore at surgical sites. Post op hypotension resolved. Has not yet ambulated or voided, wants to eat. Objective Data Objective Data Awake, alert, NAD RRR Resp non-labored +pulse in fem-fem bypass +left popliteal/DP/PT doppler signals, biphasic +right DP/PT monophasic Vital Signs: Vital Signs Temp Pulse Resp BP Pulse Ox O2 Del Method O2 Flow Rate 98.9 F 95 14 123/72 H 96 Nasal Cannula 2 07/30/22 08:16 07/30/22 08:16 07/30/22 08:16 07/30/22 08:16 07/30/22 08:16 07/30/22 08:16 07/30/22 08:16 Oxygen Flow Rate (L/min) 2 Oxygen Delivery Method Nasal Cannula Weight: 113 lb 12.136 oz Body Mass Index (BMI) 19.5 Intake & Output: Intake and Output for Last 24 Hours 07/28/22 07/29/22 07/30/22 23:59 23:59 23:59 Intake Total 2631.17 / 2631.17 1256.67 / 1256.67 Output Total 300 / 450 300 / 300 Balance 2331.17 / 2181.17 956.67 / 956.67 Lab / Micro Data Result Diagrams: 07/30/22 03:30 07/30/22 03:30 Labs: Laboratory Results - last 24 hr 07/29/22 08:17: Activated Clotting Time 161 H 07/29/22 11:45: Activated Clotting Time 269 H 07/29/22 12:25: Activated Clotting Time 269 H 07/29/22 13:11: Activated Clotting Time 263 H 07/29/22 13:49: Activated Clotting Time 263 H 07/29/22 15:02: Activated Clotting Time 251 H 07/29/22 18:35: Hgb 9.4 L, Hct 29.3 L 07/29/22 19:53: Blood Type O POSITIVE, Antibody Screen NEGATIVE, Crossmatch See Detail 07/30/22 03:30: WBC 10.4, RBC 3.08 L, Hgb 9.1 L, Hct 27.8 L, MCV 90.3, MCH 29.5,MCHC 32.7, RDW Std Deviation 44.4 H, RDW Coeff of Barbara 13.5, Plt Count 160, MPV 9.9, Immature Gran % (Auto) 0.500, Neut % (Auto) 80.8 H, Lymph % (Auto) 9.5 L, [place] % (Auto) 9.1, Eos % (Auto) 0.0, Baso % (Auto) 0.1, Absolute Neuts (auto) 8.4 H, Absolute Lymphs (auto) 0.99, Nucleated RBC % 0 07/30/22 03:30: Sodium 141, Potassium 4.5, Chloride 111 H, Carbon Dioxide 23.0, Anion Gap 7, BUN 24 H, Creatinine 0.98, Estim Creat Clear Calc 43.37, Est GFR (MDRD) Af Amer 96, Est GFR (MDRD) Non-Af 80, BUN/Creatinine Ratio 24.4 H, Glucose 117 H, Calcium 7.7 L, Phosphorus 3.6, Magnesium 1.4 L Assessment & Plan Assessment/Plan (1) Atherosclerosis of [place] arteries of extremities with rest pain, left leg: PLAN: -clears and advance diet -HLIV, DC bashir and art line -OOB -recheck hgb later today -cont low dose heparin -plavix load today -if cont stable then possible to PCU later today 07/30/22 0904 <Electronically signed by Enoc Grubbs MD> Cosigner Signature (if applicable): CC: ~ Signed [facility] Work Phone: 1([phone]) 646-417003-13-2023 History and physical note Author Dr. Grubbs [facility] July 29, 2022 7:38am Note Date/Time July 29, 2022 7:3 8am [facility] Medical Records Department [address] [place] [address] History & Physical Exam 07/29/22 0733 MR#: [id number] Acct: [id number] Name: RYAN VAZ Rep #:[id number] : 1950 71 From: Enoc Grubbs MD PCP: Dr. Dom Chaidez MD Status:AD M IN Location: [place] [address] HPI - General General Date of Admission: 07/29/22 HPI Narrative RYAN VAZ, is a 71 M who presents with severe bilateral lower extremity peripheral arterial occlusive disease. Currently with rest pain/wound LLE, priorfemoral endarterectomies and iliac stents. Left iliac stents, left common femoral occluded. Right iliac stents with in-stent stenosis. Angiogram reveal some back filling of profunda from collaterals as a possible target for fem-fem;above knee popliteal also patent with decent runoff. [facility] Medical History (Updated 07/15/22 @ 13:36 by Christy Carbajal) Alcohol abuse Back pain COPD (chronic obstructive pulmonary disease) Edema Hard of hearing Head injury Heartburn High cholesterol History of stress test HTN (hypertension) Hypoglycemia Leg cramps Leg pain Neuropathy Osteoporosis PAOD (peripheral arterial occlusive disease) Passed out Peripheral arterial occlusive disease Shortness of breath Smoker Wears eyeglasses Home Medications diltiazem HCl 180 mg capsule,extended release 24 hr 180 mg PO DAILY BP 06/20/14 [History Last Taken 07/29/22] valsartan 320 mg-hydrochlorothiazide 12.5 mg tablet 320 mg PO DAILY BP 06/20/14 [History Last Taken 01/18/20] glucose 4 gram chewable tablet 4 g PO DAILY sugar 01/18/20 [History Last Taken 01/18/20] aspirin 81 mg tablet,delayed release (Adult Low Dose Aspirin) 81 mg PO DAILY SUPPLEMENT 05/02/22 [History Last Taken 07/28/22] cilostazol 50 mg tablet 50 mg PO DAILY BONE 07/15/22 [History Last Taken Unknown] rosuvastatin 10 mg tablet (Crestor) 10 mg PO QHS CHOLESTEROL 07/15/22 [History Last Taken Unknown] Allergy/AdvReac Type Severity Reaction Status Date / Time ciprofloxacin HCl Allergy Severe Nausea Verified 07/29/22 06:20 [From Cipro] Family History Father Hypertension Cancer lung Other Osteoporosis Surgical History (Updated 07/15/22 @ 13:36 by Christy Carbajal) Hx of colonoscopy Hx of left cataract extraction Hx of right cataract extraction Status post peripheral artery angioplasty Social History Smoking Status: Current every day smoker tobacco type: cigarettes ROS Constitutional Constitutional: Denies chills, fever(s), frequent falls, lethargy or weakness Eyes Eyes: Denies blind spots, change in vision or loss of vision ENT HEENT: Denies bleeding gums, hoarseness or sore throat Cardiovascular Cardiovascular: Denies abdominal pain, bluish discoloration of hand/feet, chest pain with activity, claudication, cold extremities, cyanosis, dyspnea on exertion, erythema on extremities, irregular heart rhythm, leg edema, leg ulcers, numbness in extremities or weakness in extremities Respiratory/Chest Respiratory/Chest: Denies cough, excessive phlegm production, shortness of breath at rest, shortness of breath with exertion or wheezing Gastrointestinal Gastrointestinal: Denies anorexia, change in stool character, constipation, diarrhea, melena or rectal bleeding Genitourinary Genitourinary: Denies dysuria or hematuria Musculoskeletal Musculoskeletal: Denies abnormal gait Integumentary Integumentary: Reports other Details: ; Denies erythema, non-healing lesions or wounds Neurologic Neurologic: Denies abnormal speech, focal weakness, headache(s), loss of vision,numbness, paresthesias or sensory deficit Hematologic/Lymphatic Hematologic/Lymphatic: Denies easy bleeding, easy bruising or lymphadenopathy Vital Signs Vital Signs Vital Signs: 07/29/22 06:21 07/29/22 06:21 07/29/22 06:50 Temperature 97.8 F Temperature Source Temporal Pulse Rate 96 95 Respiratory Rate 18 18 Respiratory Pattern Normal Normal Blood Pressure 142/68 H Blood Pressure Mean 92 Blood Pressure Source Monitor Blood Pressure Position Semi-Fowlers Blood Pressure Location Left Arm Pulse Ox 95 Oxygen Delivery Method Room Air Weight Weight: 99 lb 3.328 oz Body Mass Index (BMI) 17.0 Physical Exam Const alert, oriented x3, no apparent distress and healthy appearing General Appearance: cooperative; Negative for combative or lethargic Orientation / Consciousness: awake Exam Limitations: no limitations HEENT Head and Scalp: normocephalic and atraumatic Eyes EOMs intact bilaterally General Eye: normal appearance of both eyes Neck full ROM Resp normal respiratory effort and no use of accessory muscles Effort and Inspection: Negative for labored, stridor or audible wheezes Cardio regular rate and regular rhythm Back/Spine Cervical Spine: cervical ROM normal Extremity full ROM, normal capillary refill and no clubbing, cyanosis or edema Skin no rashes or lesions noted Neuro oriented x3, CN's II-XII intact bilaterally, no focal motor deficits and no sensory deficits noted Psych thought process normal, cooperative, affect normal, speech normal and activity/motor behavior normal Results Lab / Micro Data Result Diagrams: 07/18/22 12:13 07/18/22 12:13 Assessment & Plan Assessment/Plan (1) Atherosclerosis of [place] arteries of extremities with rest pain, left leg: PLAN: -right iliac angioplasty/stent -right to left fem-fem -left fem-pop -sartorius flaps -cadaver for fem-fem 07/29/22 0738 <Electronically signed by Enoc Grubbs MD> Cosigner Signature (if applicable): CC: Dr. Enoc Grubbs MD; Dr. Dom Chaidez MD~ Signed [facility] Work Phone: 1([phone]) 462-703412-02-2022 Note ORIGINAL EXAMINATION: SCREENING ULTRASOUND OF THE [...] Sign Date: 04/19/2022 4:36:10 PM Ordering Provider: [facility]12-02-2022 Note ORIGINAL EXAMINATION: SCREENING ULTRASOUND OF THE [...] Sign Date: 04/19/2022 4:36:10 PM Ordering Provider: [address]03-2022 Evaluation + Plan note Future Scheduled Tests Radiology* US Abdomen and Aorta 03/21/22 [facility] Evaluation + Plan note Future Appointments Appointment Date:03/21/2022 09:00:00 AM Scheduled Provider:NIMA MANCIA Location:[facility] Appointment Type:PC Wellness Medicare Future Scheduled Tests Laboratory* Lipid Profile 12/08/20 [facility] Evaluation note* Diagnosis Onset Date Resolution Status Atherosclerosis of lower extremity with claudication acute [facility] Work Phone: Evaluation note* Diagnosis Onset Date Resolution Status Atherosclerosis of lower extremity with claudication acute Atherosclerosis of [place] of extremities with rest pain, left leg chronic [facility] Work Phone: Evaluation note* Diagnosis Onset Date Resolution Status Atherosclerosis of lower extremity with claudication acute Atherosclerosis of [place] of extremities with rest pain, left leg chronic Acute respiratory failure with hypoxemia acute Atherosclerosis of lower extremity with claudication acute Chronic bullous emphysema ac cricket Incidental pulmonary nodule, less than or equal to 3mm acute Atherosclerosis of [place] of extremities with rest pain, left leg chronic COPD exacerbation chronic [facility] Work Phone: Evaluation note* Diagnosis Onset Date Resolution Status Atherosclerosis of [place] of extremities with rest pain, left leg chronic Acute respiratory failure with hypoxemia acute Atherosclerosis of lower extremity with claudication acute Chronic bullous emphysema ac cricket Incidental pulmonary nodule, less than or equal to 3mm acute Atherosclerosis of [place] of extremities with rest pain, left leg chronic COPD exacerbation chronic Atherosclerosis of [place] of extremities with rest pain, left leg chronic Anemia acute [facility] Work Phone: Evaluation note* Diagnosis Onset Date Resolution Status Acute respiratory failure with hypoxemia acute Atherosclerosis of lower extremity with claudication acute Chronic bullous emphysema ac cricket Incidental pulmonary nodule, less than or equal to 3mm acute Atherosclerosis of [place] of extremities with rest pain, left leg chronic COPD exacerbation chronic Atherosclerosis of [place] of extremities with rest pain, left leg chronic Anemia acute [facility] Work Phone: Evaluation note* Diagnosis Onset Date Resolution Status Atherosclerosis of [place] of extremities with rest pain, left leg chronic Anemia acute [facility] Work Phone: Evaluation note* Diagnosis Onset Date Resolution Status Acidosis, lactic acute Anemia acute GI bleed acute Hypotension acute [facility] Work Phone: Evaluation note* Diagnosis Onset Date Resolution Status Anemia acute Acidosis, lactic resolved GI bleed resolved Hypotension resolved [facility] Work Phone: Evaluation note* Diagnosis Onset Date Resolution Status Anemia acute Acidosis, lactic resolved GI bleed resolved Hypotension resolved Severe malnutrition acute Acute on chronic respiratory failure with hypoxia chronic COPD exacerbation resolved COVID-19 virus infection res olved Hyponatremia resolved Leukocytosis resolved Pneumonia resolved [facility] Work Phone: Evaluation noteNo assessment information available [facility] Work Phone: Hospital course Narrative No data available for this section [facility] Hospital Discharge instructions No data available for this section [facility] Progress note No data available for this section [facility] Reason for referral (narrative)No reason for referral [facility] Work [facility]: Summary Purpose Family History No Family History Records Found Relationship Condition Age at Onset Recorded Date/T trent Not Specified Osteoporosis Unknown father Hypertension Unknown Malignant neoplasm Unknown Advance Directives No Advanced Directives Records Found Advance Directive Response Recorded Date/ Time Advance Directives Yes June 9:26am Living Will Yes January 17 5:40pm Power of Rn Hematology No January 18, 2020 5:40pm Advance Directive Response Recorded Date/ Time Advance Directives on File Yes Thor [email or web address] 7:06am Name of Medical Power of Rn Hematology raisa auguste July 02, 2022 7:06am Advance Directives Yes June 7:06am Living Will Yes July 15 023 1:25pm Power of Rn Hematology Yes July 15, 2022 1:25pm Advance Directive Response Recorded Date/ Time Advance Directives on File Yes Josh will 2022 8:06am Name of Medical Power of Rn Hematology raisa vaz July 02, 2022 8:06am Name of Medical Power of Rn Hematology Raisa Vaz (spouse) July 29, 2022 8:00pm Advance Directives Yes June 8:06am Living Will Yes July 29, 2022 8:00pm Power of Rn Hematology Yes July 29 8:00pm Advance Directive Response Recorded Date/ Time Name of Medical Power of Rn Hematology Raisa Vaz (spouse) July 29, 2022 8:00pm Advance Directives Yes June 8:06am Living Will Yes July 29, 2022 8:00pm Power of Rn Hematology Yes July 29 8:00pm Advance Directive Response Recorded Date/ Time Advance Directives Yes June 8:06am Living Will Yes July 29, 2022 8:00pm Power of Rn Hematology Yes July 29 8:00pm Advance Directive Response Recorded Date/ Time Advance Directives Yes June 8:06am Living Will Yes January 18 3:00pm Power of Rn Hematology No January 18, 2023 3:00pm Advance Directive Response Recorded Date/ Time Advance Directives Yes June 8:06am Living Will No February 12, 2023 5:05pm Power of Rn Hematology No January 5:05pm Advance Directive Response Recorded Date/ Time Advance Directives Yes June 7:06am Living Will No February 12, 2023 4:05pm Power of Rn Hematology No January 4:05pm Advance Directive Response Recorded Date/ Time Advance Directives Yes June 8:06am Chief Complaint and Reason for Visit Chief Complaint leg pain PAOD S/P ANGIOPLASTY Reason for Visit Atherosclerosis of l ower extremity with claudication Chief Complaint leg pain PAOD S/P ANGIOPLASTY discuss results PREOPERATIVE PREOPERATIVE Reason for Visit Atherosclerosis of l ower extremity with claudication Atherosclerosis of [place] arteries of extremities with rest pain, left leg Chief Complaint leg pain PAOD S/P ANGIOPLASTY discuss results PREOPERATIVE PREOPERATIVE Atherosclerosis of [place] arteries of extremities Atherosclerosis of [place] arteries of extremities NICOTINE DEP Reason for Visit Atherosclerosis of l [place]wer extremity with claudication Atherosclerosis of [place] arteries of extremities with rest pain, left leg Chief Complaint leg pain PAOD S/P ANGIOPLASTY discuss results PREOPERATIVE PREOPERATIVE Atherosclerosis of [place] arteries of extremities Atherosclerosis of [place] arteries of extremities NICOTINE DEP PREOP RT TO LT FEM FEM BYPAP, POSS LT FEM POP RT TO LT FEM FEM BYPAP, POSS LT FEM POP RT TO LT FEM FEM BYPAP, POSS LT FEM POP RT TO LT FEM FEM BYPAP, POSS LT FEM POP RT TO LT FEM FEM BYPAP, POSS LT FEM POP RT TO LT FEM FEM BYPAP, POSS LT FEM POP RT TO LT FEM FEM BYPAP, POSS LT FEM POP RT TO LT FEM FEM BYPAP, POSS LT FEM POP RT TO LT FEM FEM BYPAP, POSS LT FEM POP RT TO LT FEM FEM BYPAP, POSS LT FEM POP Reason for Visit Atherosclerosis of l ower extremity with claudication Atherosclerosis of [place] arteries of extremities with rest pain, left leg Acute respiratory failure with hypoxemia Atherosclerosis of lower extremity with claudication Chronic bullous emphysema Incidental pulmonary nodule, less than or equal to 3mm Atherosclerosis of [place] arteries of extremities with rest pain, left leg COPD exacerbation Chief Complaint discuss results PREOPERATIVE PREOPERATIVE Atherosclerosis of [place] arteries of extremities Atherosclerosis of [place] arteries of extremities NICOTINE DEP PREOP RT TO LT FEM FEM BYPAP, POSS LT FEM POP RT TO LT FEM FEM BYPAP, POSS LT FEM POP RT TO LT FEM FEM BYPAP, POSS LT FEM POP RT TO LT FEM FEM BYPAP, POSS LT FEM POP RT TO LT FEM FEM BYPAP, POSS LT FEM POP RT TO LT FEM FEM BYPAP, POSS LT FEM POP RT TO LT FEM FEM BYPAP, POSS LT FEM POP RT TO LT FEM FEM BYPAP, POSS LT FEM POP RT TO LT FEM FEM BYPAP, POSS LT FEM POP RT TO LT FEM FEM BYPAP, POSS LT FEM POP RT TO LT FEM FEM BYPAP, POSS LT FEM POP RT TO LT FEM FEM BYPAP, POSS LT FEM POP EORDER 3 WK FU Consult PER RATNA S/P RIGHT TO LEFT FEM-FEM OSTEO Reason for Visit Atherosclerosis of n ative arteries of extremities with rest pain, left leg Acute respiratory failure with hypoxemia Atherosclerosis of lower extremity with claudication Chronic bullous emphysema Incidental pulmonary nodule, less than or equal to 3mm Atherosclerosis of [place] arteries of extremities with rest pain, left leg COPD exacerbation Atherosclerosis of [place] arteries of extremities with rest pain, left leg Anemia Chief Complaint NICOTINE DEP PREOP RT TO LT FEM FEM BYPAP, POSS LT FEM POP RT TO LT FEM FEM BYPAP, POSS LT FEM POP RT TO LT FEM FEM BYPAP, POSS LT FEM POP RT TO LT FEM FEM BYPAP, POSS LT FEM POP RT TO LT FEM FEM BYPAP, POSS LT FEM POP RT TO LT FEM FEM BYPAP, POSS LT FEM POP RT TO LT FEM FEM BYPAP, POSS LT FEM POP RT TO LT FEM FEM BYPAP, POSS LT FEM POP RT TO LT FEM FEM BYPAP, POSS LT FEM POP RT TO LT FEM FEM BYPAP, POSS LT FEM POP RT TO LT FEM FEM BYPAP, POSS LT FEM POP RT TO LT FEM FEM BYPAP, POSS LT FEM POP EORDER 3 WK FU Consult PER RATNA S/P RIGHT TO LEFT FEM-FEM OSTEO S/P FEM-FEM, FEM-POP BYPASS SWELLING Presence of other vascular implants and grafts Reason for Visit Acute respiratory fa ilure with hypoxemia Atherosclerosis of lower extremity with claudication Chronic bullous emphysema Incidental pulmonary nodule, less than or equal to 3mm Atherosclerosis of [place] arteries of extremities with rest pain, left leg COPD exacerbation Atherosclerosis of [place]anta [place] arteries of extremities with rest pain, left leg Anemia Chief Complaint EORDER 3 WK FU Consult PER RATNA S/P RIGHT TO LEFT FEM-FEM OSTEO S/P FEM-FEM, FEM-POP BYPASS SWELLING Presence of other vascular implants and grafts Reason for Visit Atherosclerosis of n ative arteries of extremities with rest pain, left leg Anemia Chief Complaint S/P FEM-FEM, FEM-POP BYPASS SWELLING Presence of other vascular implants and grafts ANEMIA, HYPOTENSION, LACTIC ACIDEMIA ANEMIA, HYPOTENSION, LACTIC ACIDEMIA ANEMIA, HYPOTENSION, LACTIC ACIDEMIA ANEMIA, HYPOTENSION, LACTIC ACIDEMIA ANEMIA, HYPOTENSION, LACTIC ACIDEMIA ANEMIA, HYPOTENSION, LACTIC ACIDEMIA ANEMIA, HYPOTENSION, LACTIC ACIDEMIA Reason for Visit Acidosis, lactic Anemia GI bleed Hypotension Chief Complaint S/P FEM-FEM, FEM-POP BYPASS SWELLING Presence of other vascular implants and grafts ANEMIA, HYPOTENSION, LACTIC ACIDEMIA ANEMIA, HYPOTENSION, LACTIC ACIDEMIA ANEMIA, HYPOTENSION, LACTIC ACIDEMIA ANEMIA, HYPOTENSION, LACTIC ACIDEMIA ANEMIA, HYPOTENSION, LACTIC ACIDEMIA ANEMIA, HYPOTENSION, LACTIC ACIDEMIA ANEMIA, HYPOTENSION, LACTIC ACIDEMIA ANEMIA, HYPOTENSION, LACTIC ACIDEMIA ANEMIA, HYPOTENSION, LACTIC ACIDEMIA Reason for Visit Anemia Acidosis, lactic GI bleed Hypotension Chief Complaint ANEMIA, HYPOTENSION, LACTIC ACIDEMIA ANEMIA, HYPOTENSION, LACTIC ACIDEMIA ANEMIA, HYPOTENSION, LACTIC ACIDEMIA ANEMIA, HYPOTENSION, LACTIC ACIDEMIA ANEMIA, HYPOTENSION, LACTIC ACIDEMIA ANEMIA, HYPOTENSION, LACTIC ACIDEMIA ANEMIA, HYPOTENSION, LACTIC ACIDEMIA ANEMIA, HYPOTENSION, LACTIC ACIDEMIA ANEMIA, HYPOTENSION, LACTIC ACIDEMIA PNEUMONIA/COVID 19 PNEUMONIA/COVID 19 PNEUMONIA/COVID 19 PNEUMONIA/COVID 19 PNEUMONIA/COVID 19 PNEUMONIA/COVID 19 PNEUMONIA/COVID 19 PNEUMONIA/COVID 19 PNEUMONIA/COVID 19 PNEUMONIA/COVID 19 PNEUMONIA/COVID 19 PNEUMONIA/COVID 19 PNEUMONIA/COVID 19 PNEUMONIA/COVID 19 PNEUMONIA/COVID 19 Reason for Visit Anemia Acidosis, lactic GI bleed Hypotension Severe malnutrition Acute on chronic respiratory failure with hypoxia COPD exacerbation COVID-19 virus infection Hyponatremia Leukocytosis Pneumonia Chief Complaint ANEMIA, HYPOTENSION, LACTIC ACIDEMIA ANEMIA, HYPOTENSION, LACTIC ACIDEMIA ANEMIA, HYPOTENSION, LACTIC ACIDEMIA ANEMIA, HYPOTENSION, LACTIC ACIDEMIA ANEMIA, HYPOTENSION, LACTIC ACIDEMIA ANEMIA, HYPOTENSION, LACTIC ACIDEMIA ANEMIA, HYPOTENSION, LACTIC ACIDEMIA ANEMIA, HYPOTENSION, LACTIC ACIDEMIA ANEMIA, HYPOTENSION, LACTIC ACIDEMIA PNEUMONIA/COVID 19 PNEUMONIA/COVID 19 PNEUMONIA/COVID 19 PNEUMONIA/COVID 19 PNEUMONIA/COVID 19 PNEUMONIA/COVID 19 PNEUMONIA/COVID 19 PNEUMONIA/COVID 19 PNEUMONIA/COVID 19 PNEUMONIA/COVID 19 PNEUMONIA/COVID 19 PNEUMONIA/COVID 19 PNEUMONIA/COVID 19 PNEUMONIA/COVID 19 PNEUMONIA/COVID [address] NOTED ON [address] SCREENING Reason for Visit Anemia Acidosis, lactic GI bleed Hypotension Severe malnutrition Acute on chronic respiratory failure with hypoxia COPD exacerbation COVID-19 virus infection Hyponatremia Leukocytosis Pneumonia Chief Complaint MULTIPLE NODULES NOT ED ON CT SCREENING Chief Complaint MULTIPLE NODULES NOT ED ON CT SCREENING BLOODY NOSE Additional Source Comments Care Team (unrecognized sect ion and content) Team Status: Active Member Role Status Dates Dr. Salvador Foy , Family Provider Active Dr. Sylvia Cobb DO Primary Care Provider Active Team Status: Inactive Member Role Status Dates Dr. Sylvia Cobb DO Primary [facility] Provider, [facility] Dr. Enoc Grubbs MD Attending Provider Active Team Status: Active Member Role Status Dates Dr. Sylvia Cobb , Primary Care Provider Active Dr. Enoc Grubbs MD Attending Provider Active Team Status: Active Member Role Status Dates Dr. Sylvia Cobb DO Primary Care Provider Active Lucy Bijenniffer PA, PA Referring Provider, Other Pr ovider Active Dr. Quoc Hilario MD Attending Provider Active Team Status: Inactive Member Role Status Dates Dr. Sylvia Cobb DO Primary Care Provider Active Lucy Biedenharn PA, PA Attending Provider Active Team Status: Inactive Member Role Status Dates Dr. Sylvia Cobb DO Primary Care Provider Active Lucy Biedenharn PA, PA Attending Provider, Referrin g Provider Active Team Status: Active Member Role Status Dates Dr. Sylvia Cobb DO Primary Care Provider Active Dr. Dom Chaidez MD Attending Provider Active Team Status: Inactive Member Role Status Dates Dr. Sylvia Cobb DO Primary Care Provider Active Dr. Dom Chaidez MD Attending Provider Active Team Status: Active Member Role Status Dates Dr. Salvador Foy DO Family Provider Active Dr. Dom Chaidez MD Primary Care Provider Active Team Status: Active Member Role Status Dates Dr. Sylvia Cobb DO Primary Care Provider Active Dr. Enoc Grubbs MD Attending Provider Active Lucy TORRES, PA Referring Provider Active Team Status: Active Member Role Status Dates Dr. Enoc Grubbs MD Attending Provider, Referring Provider, Other Provider Active Dr. Dom Chaidez MD Primary Care Provider Active Team Status: Inactive Member Role Status Dates Dr. Enoc Grubbs MD Attending Provider, Referring Pro vider Active Dr. Dom Chaidez MD Primary Care Provider Active Team Status: Inactive Member Role Status Dates Dr. Dom Chaidez MD Primary Care Provider, Attend ing Provider Active Dom Chaidez MD Referring Provider Active Team Status: Active Member Role Status Dates Dr. Dom Chaidez MD Primary Care Provider Active Dr. Jnaell Pepe MD Attending Provider Activ e Dr. Jono Robles MD Referring Provider Active Team Status: Active Member Role Status Dates Dr. Enoc Grubbs MD Admit Provider, Att ending Provider, Referring Provider, Other Provider Active Dr. Dom Chaidez MD Primary Care Provider Active Team Status: Active Member Role Status Dates Dr. Enoc Grubbs MD Admit Provider, Ref erring Provider, Other Provider Active Dr. Dom Chaidez MD Primary Care Provider Active MELISSA Perla Attending Provider Active Team Status: Active Member Role Status Dates Dr. Enoc Grubbs MD Admit Provider, Ref erring Provider, Other Provider Active Dr. Dom Chaidez MD Primary Care Provider Active Dr. Franco Collins MD Other Provider Active Dr. Lizzy Meza MD Attending Provider Active Team Status: Active Member Role Status Dates Dr. Enoc Grubbs MD Admit Provider, Ref erring Provider, Other Provider Active Dr. Dom Chaidez MD Primary Care Provider Active Dr. Franco Collins MD Other Provider Active Dr. Sukhi Alfredo MD Attending Provider, Other Provider Active Team Status: Active Member Role Status Dates Dr. Enoc Grubbs MD Admit Provider, Ref erring Provider, Other Provider Active Dr. Dom Chaidez MD Primary Care Provider Active Dr. Sukhi Alfredo MD Other Provider Active Dr. Huy Gonzalez MD Attending Provider, Other Pro vider Active Team Status: Active Member Role Status Dates Dr. Enoc Grubbs MD Admit Provider, Ref erring Provider, Other Provider Active Dr. Dom Chaidez MD Primary Care Provider Active Dr. Huy Gonzalez MD Other Provider Active Dr. Mitzi Mccormack MD Other Provider Active MELISSA Perla Attending Provider Active Team Status: Active Member Role Status Dates Dr. Enoc Grubbs MD Admit Provider, Ref erring Provider, Other Provider Active Dr. Dom Chaidez MD Primary Care Provider Active Dr. Huy Gonzalez MD Attending Provider, Other Pro vider Active Dr. Mitzi Mccormack MD Other Provider Active Team Status: Inactive Member Role Status Dates Dr. Enoc Grubbs MD Admit Provider, Att ending Provider, Referring Provider Active Dr. Dom Chaidez MD Primary Care Provider Active Dr. Huy Gonzalez MD Other Provider Active Dr. Mitzi Mccormack MD Other Provider Active Team Status: Inactive Member Role Status Dates Dr. Dom Chaidez MD Primary Care Provider, Attend ing Provider Active Dom AGUIAR MD Referring Provider Active Team Status: Inactive Member Role Status Dates Dr. Dom Chaidez MD Primary Care Provider, Referr ing Provider Active Dr. Enoc Grubbs MD Attending Provider Active Team Status: Active Member Role Status Dates Dr. Enoc Grubbs MD Admit Provider, Other Provider Ac tive Dr. Dom Chaidez MD Primary Care Provider Active Dr. Franco Collins MD Other Provider Active Dr. Sukhi Alfredo MD Attending Provider, Other Provider Active Team Status: Active Member Role Status Dates Dr. Enoc Grubbs MD Admit Provider, Other Provider Ac tive Dr. Dom Chaidez MD Primary Care Provider Active Dr. Huy Gonzalez MD Other Provider Active Dr. Mitzi Mccormack MD Attending Provider, Other Prov ider Active Team Status: Inactive Member Role Status Dates Dr. Dom Chaidez MD Primary Care Provider, Referr ing Provider Active Airam Delacruz [employer] FORMER SUPERVISOR, [employer] FORMER SUPERVISOR-C Attending Provider Active Team Status: Active Member Role Status Dates Dr. Dom Chaidez MD Primary Care Provider Active Dr. Enoc Grubbs MD Attending Provider Active Team Status: Active Member Role Status Dates Dr. Dom Chaidez MD Primary Care Pr ovider, Attending Provider, Referring Provider Active Team Status: Inactive Member Role Status Dates Dr. Dom Chaidez MD Primary Care Provider Active Lucy TORRES PA Attending Provider, Referrin g Provider Active Team Status: Inactive Member Role Status Dates Dr. Dom Chaidez MD Primary Care Provider Active Dr. Enoc Grubbs MD Attending Provider Active Team Status: Active Member Role Status Dates Dr. Dom Chaidez MD Primary Care Provider Active Dr. Enoc Grubbs MD Attending Provider, Referring Pro vider Active Team Status: Inactive Member Role Status Dates Dr. Dom Chaidez MD Primary Care Pr ovider, Attending Provider, Referring Provider Active Team Status: Active Member Role Status Dates Dr. Enoc Grubbs MD Admit Provider, Ref erring Provider, Other Provider Active Dr. Dom Chaidez MD Primary Care Provider Active Lucy Bijenniffer PA Attending Provider Active Team Status: Active Member Role Status Dates Dr. Enoc Grubbs MD Admit Provider, Ref erring Provider, Other Provider Active Dr. Dom Chaidez MD Primary Care Provider Active Dr. Huy Gonzalez MD Other Provider Active Dr. Mitzi Mccormack MD Other Provider Active MELISSA Morrow Attending Provider Active Team Status: Inactive Member Role Status Dates Dr. Dom Chaidez MD Primary Care Provider Active MELISSA Morrow Attending Provider, Referring Provider Active Team Status: Active Member Role Status Dates Dr. Dom Chaidez MD Primary Care Provider Active Dr. Enoc Grubbs MD Attending Provider Active MELISSA Morrow Referring Provider Active Team Status: Inactive Member Role Status Dates Dr. Dom Chaidez MD Primary Care Provider, Attend ing Provider Active Team Status: Active Member Role Status Dates Dr. Dom Chaidez MD Primary Care Provider Active Dr. Kimberly Cowart MD Emergency Provider Active Dr. Lizzy Meza MD Admit Provider, At tending Provider, Other Provider Active Dr. Franco Collins MD Other Provider Active Dr. Hugh Ferrer DO Other Provider Active Dr. Huy Gonzalez MD Other Provider Active Dr. Nikolas Bernstein MD Other Provider Active Shelia Cisneros [employer] FORMER SUPERVISOR, [employer] FORMER SUPERVISOR-C Other Provider Active Team Status: Active Member Role Status Dates Dr. Dom Chaidez MD Primary Care Provider Active Dr. Jorge Luis Williamson DO Attending Provider Active Team Status: Active Member Role Status Dates Dr. Dom Chaidez MD Primary Care Provider Active Dr. Kimberly Cowart MD Emergency Provider Active Dr. Lizzy Meza MD Admit Provider, Other Provider A ctive Dr. Franco Collins MD Other Provider Active Dr. Hugh Ferrer DO Other Provider Active Dr. Huy Gonzalez MD Other Provider Active Dr. Nikolas Bernstein MD Other Provider Active Shelia Cisneros [employer] FORMER SUPERVISOR, [employer] FORMER SUPERVISOR-C Other Provider Active Dr. Jorge Luis Williamson DO Attending Provider Active Team Status: Active Member Role Status Dates Dr. Dom Chaidez MD Primary Care Provider Active Dr. Kimberly Cowart MD Emergency Provider Active Dr. Lizzy Meza MD Admit Provider, Other Provider A ctive Dr. Franco Collins MD Other Provider Active Dr. Hugh Ferrer DO Attending Provider, Other Provide r Active Dr. Huy Gonzalez MD Other Provider Active Dr. Nikolas Bernstein MD Other Provider Active Shelia Cisneros [employer] FORMER SUPERVISOR, [employer] FORMER SUPERVISOR-C Other Provider Active Team Status: Active Member Role Status Dates Dr. Dom Chaidez MD Primary Care Provider Active Dr. Kimberly Cowart MD Emergency Provider Active Dr. Lizzy Meza MD Admit Provider, Other Provider A ctive Dr. Otoniel Prasad , DO Attending Provider, Other Provider Active Dr. Franco Collins MD Other Provider Active Dr. Hugh Ferrer , DO Other Provider Active Dr. Huy Gonzalez MD Other Provider Active Dr. Nikolas Bernstein MD Other Provider Active Shelia Cisneros [employer] FORMER SUPERVISOR, [employer] FORMER SUPERVISOR-C Other Provider Active Team Status: Inactive Member Role Status Dates Dr. Dom Chaidez MD Primary Care Provider Active Dr. Kimberly Cowart MD Emergency Provider Active Dr. Lizzy Meza MD Admit Provider, Other Provider A ctive Dr. Otoniel Prasad , DO Attending Provider Active Dr. Franco Collins MD Other Provider Active Dr. Hugh Ferrer , DO Other Provider Active Dr. Huy Gonzalez MD Other Provider Active Dr. Nikolas Bernstein MD Other Provider Active Shelia Cisneros [employer] FORMER SUPERVISOR, [employer] FORMER SUPERVISOR-C Other Provider Active Team Status: Active Member Role Status Dates Dr. Dom Chaidez MD Primary Care Provider Active Dr. Enoc Grubbs MD Attending Provider Active MELISSA Dinh Referring Provider Active Team Status: Active Member Role Status Dates Dr. Dom Chaidez MD Primary Care Provider Active Dr. Kimberly Cowart MD Emergency Provider Active Dr. Lizzy Meza MD Admit Provider, Other Provider A ctive Dr. Otoniel Prasad , DO Other Provider Active Dr. Franco Collins MD Other Provider Active Dr. Hugh Ferrer , DO Other Provider Active Dr. Huy Gonzalez MD Other Provider Active Dr. Nikolas Bernstein MD Other Provider Active Shelia Cisneros [employer] FORMER SUPERVISOR, [employer] FORMER SUPERVISOR-C Other Provider Active Dr. Jorge Luis Williamson , Attending Provider Active Team Status: Inactive Member Role Status Dates Dr. Dom Chaidez MD Primary Care Provider Active MELISSA Dinh Attending Provider, Referring Provid er Active Team Status: Active Member Role Status Dates Dr. Dom Chaidez MD Primary Care Provider Active Dr. Jorge Luis Williamson , Attending Provider Active Dr. Otoniel Prasad , DO Referring Provider Active Team Status: Active Member Role Status Dates Dr. Dom Chaidez MD Primary Care Provider Active Dr. Kimberly Cowart MD Emergency Provider Active Dr. Lizzy Meza MD Admit Provider, Other Provider A ctive Dr. Franco Collins MD Other Provider Active Dr. Hugh Ferrer , Other Provider Active Dr. Huy Gonzalez MD Other Provider Active Dr. Nikolas Bernstein MD Other Provider Active Shelia Cisneros [employer] FORMER SUPERVISOR, [employer] FORMER SUPERVISOR-C Other Provider Active Dr. Jorge Luis Williamson , Attending Provider Active Dr. Otoniel Prasad , DO Referring Provider Active Team Status: Active Member Role Status Dates Dr. Dom Chaidez MD Primary Care Provider Active Dr. Kimberly Cowart MD Emergency Provider Active Dr. Lizzy Meza MD Admit Provider, Other Provider A ctive Dr. Franco Collins MD Other Provider Active Dr. Hugh Ferrer , Attending Provider, Other Provide r Active Dr. Huy Gonzalez MD Other Provider Active Dr. Nikolas Bernstein MD Other Provider Active Shelia Cisneros [employer] FORMER SUPERVISOR, [employer] FORMER SUPERVISOR-C Other Provider Active Dr. Otoniel Prasad , DO Referring Provider Active Team Status: Active Member Role Status Dates Dr. Dom Chaidez MD Primary Care Provider Active Dr. Kimberly Cowart MD Emergency Provider Active Dr. Lizzy Meza MD Admit Provider, Other Provider A ctive Dr. Otoniel Prasad , Referring Provider, Other Provider Active Dr. Franco Collins MD Other Provider Active Dr. Hugh Ferrer , Other Provider Active Dr. Huy Gonzalez MD Other Provider Active Dr. Nikolas Bernstein MD Other Provider Active Shelia Cisneros [employer] FORMER SUPERVISOR, [employer] FORMER SUPERVISOR-C Other Provider Active Dr. Jorge Luis Williamson , Attending Provider Active Team Status: Active Member Role Status Dates Dr. Dom Chaidez MD Primary Care Provider Active Dr. Kimberly Cowart MD Emergency Provider Active Dr. Temitope Son , Admit Provider, Att ending Provider, Other Provider Active Team Status: Active Member Role Status Dates Dr. Dom Chaidez MD Primary Care Provider Active Dr. Kimberly Cowart MD Emergency Provider Active Dr. Temitope Son DO Admit Provider, Other Provider Ac tive Dr. Sukhi Alfredo MD Attending Provider, Other Provider Active Team Status: Active Member Role Status Dates Dr. Dom Chaidez MD Primary Care Provider Active Dr. Kimberly Cowart MD Emergency Provider Active Dr. Temitope Son DO Admit Provider, Other Provider Ac tive Dr. Edward Elizabeth , DO Attending Provider, Other Pro vider Active Dr. Sukhi Alfredo MD Other Provider Active Team Status: Active Member Role Status Dates Dr. Dom Chaidez MD Primary Care Provider Active Dr. Kimberly Cowart MD Emergency Provider Active Dr. Temitope Son DO Admit Provider, Other Provider Ac tive Dr. Edward Elizabeth , Attending Provider, Other Pro vider Active Dr. Sukhi Alfredo MD Other Provider Active Dr. Kerline Osei MD Active Team Status: Inactive Member Role Status Dates Dr. Dom Chaidez MD Primary Care Provider Active Dr. Kimberly Cowart MD Emergency Provider Active Dr. Temitope Son DO Admit Provider, Other Provider Ac tive Dr. Edward Elizabeth DO Attending Provider Active Dr. Sukhi Alfredo MD Other Provider Active Team Status: Inactive Member Role Status Dates Dr. Dom Chaidez MD Primary Care Provider Active Ed Physician Provider Emergency Provider Active Team Status: Active Member Role/Relationship Status Dates Dr. Salvador Foy DO Family Provider Active Dr. Dom Chaidez MD Primary Care Provider Active Team Status: Inactive Member Role/Relationship Status Dates Dr. Dom Chaidez MD Primary Care Provider Active Start: January 14, 2025 End: January 14, 2025 Dr. Dom Chaidez MD Attending Provider Active Start: January 14, 2025 End: January 14, 2025 Dr. Dom Chaidez MD Referring Provider Active Start: January 14, 2025 End: January 14, 2025 Care Team (unrecognized sect ion and content) Care Team Personnel Name: NIMA MANCIA Position: P4 Advanced Practice Nurse Member Role: Primary Care Physician Address: Address: [address] [place] [address] Care Team Related Persons Name: PRAMOD VAZ Care Team Personnel Name: NIMA MANCIA Position: P4 Advanced Practice Nurse Member Role: Primary Care Physician Address: Address: [address] [place] [address] Care Team Related Persons Name: PRAMOD VAZ (unrecognized sect ion and content) No Status Records FoundNo Status Records FoundNo Status Records Found INFORMATION SOURCE (unrecogn ized section and content) DATE CREATED AUTHOR 04/10/2022 [facility] DATE CREATED AUTHOR AUTHOR'S ORGANIZ ATION 04/20/2022 [facility] ([place]) DATE CREATED AUTHOR AUTHOR'S ORGANIZ ATION 02/04/2025 [facility] Goals (unrecognized section and content) Goals may be documented in a n alternate section FOR RECORDS PERTAINING TO PATIENTS WHO ARE [...] BE BASED ON THE PRIMARY CLINICAL RECORDS. [employer] provides no warranty or guarantee of the accuracy or completeness of information in this document.
[2025-04-24 16:20] VITALS: BP 126/50; PULSE 87; RESP 16; TEMP 36.4; O2SAT 99
--- NOTE | 2025-04-24 16:21 | ED.RN ---
pt reports he doesnt go anywhere because they cant manage his portable tank. do es have tanks at home. not with they. insists just a few miles and will be fine.
== END 2025-04-24 16:22 | disposition home or self-care (01) ==
PROVIDERS: Emergency Provider Emergency Medicine; PCP Family Medicine; Visit Provider Emergency Medicine
DX: R04.0 Epistaxis (principal); J96.11 Chronic respiratory failure with hypoxia; J43.9 Emphysema, unspecified; E78.00 Pure hypercholesterolemia, unspecified; I10 Essential (primary) hypertension; F17.210 Nicotine dependence, cigarettes, uncomplicated; Z51.5 Encounter for palliative care; Z79.899 Other long term (current) drug therapy
CPT/HCPCS: 30901; 99284; A4216